=== PATIENT | female | born 1940 | race Caucasian/White ===

== ENCOUNTER 2020-09-12 19:20 | Inpatient (IN) | payer OTHER, SELFPAY ==
--- NOTE | ~2020-09-12 | XR_ITS ---
XR chest 1V portable 09/20/2020 15:22 Indication: Hypertension. Type 2 diabetes. Procedure: AP portable chest Comparison: No prior studies for comparison. Findings: Status post median sternotomy for CABG. Cardiomegaly. Diffuse bilateral airspace disease. N o significant pleural effusion or pneumothorax. Impression: 1: Diffuse bilateral airspace disease, consistent with edema. Pneumonia less favored. Reviewed, dictated and finalized at location B. RHANGER Impression: 1: Diffuse bilateral airspace disease, consistent with edema. Pneumonia less fa vored.
--- NOTE | ~2020-09-12 | US_ITS ---
EXAMINATION: US renal BI DATE: 09/16/2020 09:29 INDICATION: Acute kidney injury. TECHNIQUE: Multiple ultrasound grayscale images of the kidneys were obtained. COMPARISON: None. FINDINGS: The right kidney measures 11.7 x 4.5 x 5.1 cm. The left kidney measures 10.4 x 5.1 x 5.1 cm. The kidn eys demonstrate normal parenchymal echogenicity. There is no hydronephrosis. The bladder is not well distended. IMPRESSION: 1. Normal kidney sizes. No hydronephrosis. Reviewed, dictated and finalized at location A. SERVICE WAITER
--- NOTE | ~2020-09-12 | XR_ITS ---
EXAMINATION: XR foot LT min 3V DATE: 09/12/2020 20:52 INDICATION: Diabetes with foot wound TECHNIQUE: Dorsoplantar, oblique and lateral views of the left foot were obtained. COMPARISON: 12/08/2014 FINDINGS: Transmetatarsal amputations at the necks of the second and third metatarsals. There is also osteotomy of the head and medial neck of the first metatarsal and base of the first proximal phalanx. There ar e smooth and intact cortical margins at each of these osteotomies. Skin ulceration with prominent gas in the soft tissues at the plantar/lateral aspect of the heel. There are several punctate radiopaque foreign bodies at the skin ulceration. No evident underlying cortical erosion to suggest osteomyelit is. No fractures. Minimal polyarticular osteoarthritis in the mid and hindfoot. Small Achilles calcan eal spur. A couple surgical clips at the posterior aspect of the distal calf. IMPRESSION: 1. Deep ulceration with soft tissue gas and several tiny opaque foreign bodies at the plantar/lateral heel fat pad. No underlying cortical erosion to suggest osteomyelitis. Reviewed, dictated and finalized at location H. ROCK [employer]ER BLASTING
--- NOTE | ~2020-09-12 | US_ITS ---
EXAMINATION: US art doppler w press LE BI EXAM DATE: 09/13/2020 10:21 INDICATION: Left DFU/Unable to palpate pedal pulses LT DFU. TECHNIQUE: Segmental pressures and plethysmographic and Doppler waveforms of the brachial and lower e xtremity arteries were obtained. There is no prior study for comparison. FINDINGS: Left brachial artery pressure 119 mmHg. RIGHT LEG: Below knee amputation. Monophasic superficial femoral, popliteal waveforms. LEFT LEG: The ankle-brachial index (NIMO) is 0.85 (normal >= 0.9-1). The great toe-brachial index (TBI) is 0.24 (normal >= 0.65). The lower extremity ratios, segmental pressure gradients as follows; Dorsalis pedis: 0.69 (82 mmHg). Posterior tibial: 0.85 (101 mmHg). (Normal gradients <= 20-30 mmHg between adjacent levels on the same leg or the same levels on the two legs). Arterial waveforms are monophasic. IMPRESSION: Left ankle-brachial index 0.85, mildly decreased. Reviewed, dictated and finalized at location B. [facility]
[2020-09-12 19:26] VITALS: BP 160/61; PULSE 99; RESP 20; TEMP 36.8; O2SAT 99
[2020-09-12 20:23] LABS: Basophils Absolute Auto 0.2 K/mm3 (0.0-0.1); Basophils Percent Auto 0.5 % (0.2-1.2); Eosinophils Percent Auto 0.1 % (0-4.4); Hematocrit 37.4 % (37.0-47.0); Hemoglobin 11.6 g/dL (12.0-15.0); Immature Granulocyte Absolute 1.16 K/mm3 (0.00-0.031); Immature Granulocyte Percent A 3.6 % (0-0.5); Lymphocytes Percent Auto 4.4 % (18.3-44.2); Mean Corpuscular Hemoglobin 27.8 pg (26-34); Mean Corpuscular Volume 89.7 fl (80-100); Mean Platelet Volume 10.8 fl (7.4-10.4); Monocytes Absolute Auto 1.5 K/mm3 (0.1-0.6); Monocytes Percent Auto 4.7 % (2.6-8.5); Neutrophils Absolute Auto 27.7 K/mm3 (1.3-6.7); Neutrophils Percent Auto 86.7 % (45.5-73.1); Platelet Count Result 444 k/mm3 (150-375); Red Blood Count 4.17 M/mm3 (4.2-5.4); Red Cell Distribution Width 14.4 % (11.5-14.5)
--- NOTE | 2020-09-12 20:30 | ED.GENADULT ---
HPI - General Adult General Chief complaint: Extremity Problem,Nontraumatic Stated complaint: foot infection Time Seen by Provider: 09/12/20 19:21 History of Present Illness HPI narrative: Patient is a 80-year-old female who presents ER with pain in her left lower extremity. Patient reports she had an ulcer that developed over her heel/ankle. It then began to spread and her leg became red and began to weep and become malodorous. She was seen at [facility] and then transferred to [facility]. At that time the surgeons there told her they want to perform an [id number] amputation for the leg. Patient disagreed with this and opted to leave against their advice. They did prescribe her 10-day course of Keflex. The bottle shows that it was filled on 07/18/2020. Patient reports she came back in today just because the pain is increased and it shoots from her knee down to her foot. Its worse with movement. She is not having fevers or chills or sweats. She has no nausea or vomiting. She reports her son tries to cleanse the wound at home with saline and will then wrap it. The reason she came here was because she would like Dr. Huerta the orthopedic surgeon who performed her opposite leg amputation to perform this operation. Related Data Home Medications Medication Instructions Recorded Confirmed atorvastatin 10 mg PO DAILY 09/13/20 09/13/20 gabapentin 400 mg PO BID 09/13/20 09/13/20 insulin glargine [Lantus U-100 35 unit SUBCUT BID 09/13/20 09/13/20 Insulin] Allergies Allergy/AdvReac Type Severity Reaction Status Date / Time No Known Allergies Allergy Verified 09/13/20 01:03 Review of Systems Review of Systems: All systems reviewed & are unremarkable except as noted in HPI and below Constitutional: Constitutional: Denies chills, Denies fever(s) and Denies weakness Musculoskeletal: Musculoskeletal: Denies back pain and Denies arthralgias Comments: Left lower extremity pain. Integumentary/Breasts: Skin/Breast: Reports skin ulcer Comments: Redness left lower extremity. [facility] Past Medical History Medical History (Updated 09/12/20 @ 22:41 by Dominik Freedman MD) Diabetes type 2, controlled Neuropathy Wound of foot Surgical History Surgical History (Updated 09/12/20 @ 20:32 by Dominik Freedman MD) History of right below knee amputation Family History Family History (Updated 10/12/13 @ 09:41 by DOCTOR UNKNOWN) Other Diabetes mellitus Family history of arthritis Family history of cardiovascular disease Hypertension Social History Social History Smoking status: Former smoker Alcohol intake: current Exam Narrative: Exam Narrative: GENERAL: Well-appearing, well-nourished, and in no acute distress. HEAD: Normocephalic, atraumatic. ENT: Mucous membranes moist. CHEST: Clear to auscultation. No respiratory distress. HEART: Regular rate and rhythm. Normal peripheral pulses. EXTREMITIES: Right BKA. Left lower extremity with significant skin breakdown of the left heel extending proximally. There is also some small pinpoint wounds to the foot. There is no tenderness. It is pink and malodorous and draining fluid. There is a small dark eschar over the heel laterally but over the plantar aspect there is a lot of dog hair. There is a yellowed ulcer to the lateral left aguila that is at least 7 cm wide. SKIN: Warm, dry, as above. NEURO: Alert and oriented x3. PSYCH: Normal mood and affect. Course Course Emergency Course: Discussed the case with Dr. Patten as he is on-call for Dr. Huerta who the patient had a previous amputation with back in 2016. We discussed the images and lab findings as well as the exam. Discussed that there is significant deep ulceration embedded with hair. Patient does not seem to have significant reproducible tenderness moving up the leg. There is no gas tracking vertically up the leg on the imaging. Seems to be localized to her deep plantar ulceration of th
[2020-09-12 20:34] LABS: Lactic Acid Reflex 1.4 mmol/L (0.7-2.1)
[2020-09-12 20:40] LABS: Anion Gap 7 mmol/L (8-16); Blood Urea Nitrogen 17 mg/dL (7-17); Calcium 9.3 mg/dL (8.4-10.2); Carbon Dioxide 33 mmol/L (22-30); Chloride 97 mmol/L (98-107); Estimated CRCL calculation 55 ml/min; Estimated Glomerular Filt Rate > 60; Glucose 415 mg/dL (65-105); Potassium 3.9 mmol/L (3.4-5.0); Sodium 137 mmol/L (137-145)
[2020-09-12 20:48] LABS: Erythrocyte Sedimentation Rate 87 mm/hr (0-20)
[2020-09-13] VITALS (8 sets, daily range): BP systolic 114–158; BP diastolic 55–87; PULSE 94–103; RESP 16–20; TEMP 35.9–37.1; O2SAT 91–95; BMI 41.1
[2020-09-13] MEDS: SODIUM CHLORIDE 0.9% IV 1,000 ML 125 ML IV CONT ×3 (00:02→16:43)
--- NOTE | 2020-09-13 02:21 | ADMGEN ---
This patient, Owen Escobar, was admitted to 2 Medical Room 246-. Patient/family oriented to hospital policies and general routines including ID bracelet, bed and alarms, visiting hours, pain management, procedures, bathroom and other care routines, personal items, smoking policy, room service/diet, and visiting hours. Information on how to activate the Rapid Response Team has been discussed. Patient/Family are encouraged to report perceived risks to care and to ask questions if they do not understand what they are told or what they should do.
[2020-09-13 04:16] LABS: Glucose Point of Care 310 (65-105)
[2020-09-13 07:28] LABS: Glucose Point of Care 293 (65-105)
--- NOTE | 2020-09-13 08:00 | PC.NURSE ---
Called Dr. Dunne and left voice message regarding elevated blood glucose and need for insulin orders.
[2020-09-13] MEDS: HYDROcodone/acetaminophen (*CRX) 5-325 MG TABLET 1 TAB PO ×2 (08:20→16:37)
--- NOTE | 2020-09-13 09:03 | PM.CNOR ---
Assessment and Plan Assessment and plan (1) Diabetic foot ulcer: Qualifiers: Diabetic foot ulcer location: heel Diabetes mellitus type: type 2 Laterality: left Non-pressure ulcer stage: with necrosis of muscle Qualified Code(s): E11.621 - Type 2 diabetes mellitus with foot ulcer; L97.423 - Non-pressure chronic ulcer of left heel and midfoot with necrosis of muscle Code(s): E11.621 - Type 2 diabetes mellitus with foot ulcer; L97.509 - Non-pressure chronic ulcer of other part of unspecified foot with unspecified severity Status: Acute Assessment and Plan: Radiographs of the left foot reveal a deep ulceration with soft tissue gas and several tiny opaque foreign bodies at the plantar/lateral heel fat pad. No underlying cortical erosion to suggest osteomyelitis. Radiographs also reveal transmetatarsal amputations at the necks of the second and third metatarsals and an osteotomy of the head and medial neck of the first metatarsal and base of the first proximal phalanx. Patient unsure of who performed these surgeries but recalls it occurred prior to her right BKA. On exam, patient has a left medial ankle ulceration which is dry measuring 1.5 x 2.0 x 0.0 cm. She has a large necrotic ulcer on the left plantar heel which extends to the midfoot and measures 11.0 cm x 14.0 cm x 0.0 cm. Is 100% necrotic. There is also an ulceration on the left planter aspect of the hallux measuring 1 x 2 x 0.0 cm with a dry callus covering. surrounding tissue with redness, warmth and swelling. Redness extends more proximally below the tibial tubercle. Venous stasis ulcerations also noted. Unable to palpate pedal pulses. Patient is mainly insensate from the forefoot to the distal tibia. Will obtain a left lower extremity arterial Doppler with toe pressures at this time. Dressing to be removed for the arterial Doppler of the left lower extremity. Order entered. Wound care initiated, to be performed daily. Continue IV antibiotics under the direction of the hospitalist team. We will also obtain hemoglobin A1c. Patient to be nonweightbearing on the left lower extremity in the interim. We will determine further surgical intervention pending testing. (2) Infected stasis ulcer of left lower extremity: Code(s): I83.229 - Varicose veins of left lower extremity with both ulcer of unspecified site and inflammation; L97.929 - Non-pressure chronic ulcer of unspecified part of left lower leg with unspecified severity Status: Acute Assessment and Plan: There is a 6.5 x 4.5 x 0.2 Penilla in a stasis ulcer on the lateral aspect of the left anterior leg. It is 100% yellow. She does have 4+ pitting edema in the left lower extremity. She has an additional venous stasis ulcer on the posterior aspect of the left lower leg which measures 7.0 x 5.5 x 0.2 cm and is 100% yellow. Wound care consult requested. Wound care nurse at bedside during evaluation. Will begin dry dressings at this time. (3) Absent pedal pulses: Code(s): R09.89 - Other specified symptoms and signs involving the circulatory and respiratory systems Status: Acute Assessment and Plan: Unable to palpate pedal pulses in the left lower extremity. The patient is insensate from the toes to the anterior tibia. Recommended lower extremity arterial Doppler for further evaluation and potential surgical planning. (4) Lower extremity cellulitis: Qualifiers: Laterality: left Qualified Code(s): L03.116 - Cellulitis of left lower limb Code(s): L03.119 - Cellulitis of unspecified part of limb Status: Acute Assessment and Plan: Patient with an elevated white blood cell count and CRP. Redness, warmth and swelling distal to the tibial tubercle down to the forefoot of the left lower extremity. The patient has been started on IV antibiotics by the hospitalist service. Continue antibiotics in the interim. (5) Uncontrolled diabetes mellitus:
[2020-09-13 10:09] LABS: Hemoglobin A1C 10.2 % (<5.7)
--- NOTE | 2020-09-13 12:00 | PC.NURSE ---
Called Dr. Dunne and left voice message regarding continued need for glucose orders. 1215 - Dr. Dunne on unit. Discussed elevated blood glucose with her. Orders received.
[2020-09-13 12:09] LABS: Glucose Point of Care 350 (65-105)
--- NOTE | 2020-09-13 12:35 | PM.IMHP ---
H&P: HPI History of Present Illness Date/Time: 09/13/20 12:35 Chief complaint: diabetic foot wound with infection Narrative: Owen Escobar is a 80 year old female pt developed ulcer on her left foot. Pt had blister on her foot, which got worse over Jun and July. Pt was having alot of pain, unbearable pain and decided to come here for evaluation. Pt did go to [facility] and was transferred to [facility] where they said she needs amputation above knee but patient did not have it done then. Pt has history of DM and right below knee amputation. And has seen Dr Huerta before in 2014. Presently her pain is 6/10. Pt lives with her son unsure how good her DM control is at home, I believe it is not good. I will order Hbaic to check. foot xray shows - Deep ulceration with soft tissue gas and several tiny opaque foreign bodies at the plantar/lateral heel fat pad. No underlying cortical erosion to suggest osteomyelitis. 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 She does not work. She denies smoking, alcohol or drug use. Smoking packs per day: 0.5 Smoking cigarettes per day: 10.0 Years smoked: 63 Smoking pack-years: 31.50 Smoking status: Former smoker Tobacco type: cigarettes Smoking end date: 08/21/15 Alcohol intake: never Substance use: never Substance use type: does not use Living arrangements: with family Additional living arrangements comments: Two sons Occupation/Education: retired Gender identity (if verbalized by the patient): Female Meds Home Medications and Allergies Home Medications Medication Instructions Recorded Confirmed Type atorvastatin [Lipitor] 40 mg PO DAILY 09/13/20 09/13/20 History carvedilol [Coreg] 12.5 mg PO BID 09/13/20 09/13/20 History gabapentin 400 mg PO BID 09/13/20 09/13/20 History insulin glargine [Lantus U-100 42 unit SUBCUT BID 09/13/20 09/13/20 History Insulin] lisinopril [Zestril] 2.5 mg PO DAILY 09/13/20 09/13/20 History mirtazapine [Remeron] 15 mg PO HS 09/13/20 09/13/20 History Allergies Allergy/AdvReac Type Severity Reaction Status Date / Time No Known Allergies Allergy Verified 09/13/20 01:03 Vital Signs Vital Signs - 24 hr 09/12/20 19:26 09/13/20 00:06 09/13/20 01:02 Temperature 36.8 C Pulse Rate 99 94 94 Respiratory Rate 20 18 20 Blood Pressure 160/61 H 158/62 H 156/62 H Pulse Oximetry 99 95 95 09/13/20 02:39 09/13/20 05:42 09/13/20 10:00 Temperature 35.9 C L 36.1 C L 36.9 C Pulse Rate 96 94 100 Respiratory Rate 16 16 18 Blood Pressure 148/64 H 142/55 H 136/61 Pulse Oximetry 93 91 94 Exam Const: General: well developed Nutritional Appearance: well nourished HENMT: Head: normocephalic Eyes: General: appearance normal, both eyes and all related structures Pupils: Equal, round and reactive pupils present Neck: Neck: supple Chest: Chest palpation & inspection:
[2020-09-13] MEDS: INSULIN ASPART (*BKC) 100 UNITS/ML 6 UNITS SUB-Q (12:40)
[2020-09-13 13:40] LABS: Hemoglobin A1C 10.3 % (<5.7)
[2020-09-13] MEDS: TOLNAFTATE 1% POWDER 45 GM BTL 1 APPLIC TOPICAL ×2 (14:43→20:20)
[2020-09-13] MEDS: INSULIN ASPART (*BKC) 100 UNITS/ML SUB-Q (16:58)
--- NOTE | 2020-09-13 17:00 | PC.NURSE ---
Called Dr. Dunne and left voice message regarding blood glucose of 413. 8 units of sliding scale given. Awaiting any further orders.
[2020-09-13] MEDS: GABAPENTIN 400 MG CAPSULE PO (18:21)
[2020-09-13 18:35] LABS: Glucose Point of Care 413 (65-105)
--- NOTE | 2020-09-13 19:26 | WPDANESEPP ---
Anes - Eval Pre Procedure Procedure: Operation Date: 09/14/20 14:30 Proposed Procedures p Incision And Drainage Left Diabetic Foot Ulcer - Alexy Huerta MD Date/Time: 09/13/20 19:26 Pre Op Diagnosis: diabetic foot wound with infection Patient Data Age: 80 Gender: F Height: 5 ft 1 in Weight: 98.7 kg Last Vital Signs Temp 98.8 F 09/13/20 18:00 Pulse 103 H 09/13/20 18:00 Resp 16 09/13/20 18:00 BP 130/71 09/13/20 18:00 Pulse Ox 93 09/13/20 18:00 Allergies Allergy/AdvReac Type Severity Reaction Status Date / Time No Known Allergies Allergy Verified 09/13/20 01:03 Home Medications Medication Instructions Recorded Confirmed Type atorvastatin [Lipitor] 40 mg PO DAILY 09/13/20 09/13/20 History carvedilol [Coreg] 12.5 mg PO BID 09/13/20 09/13/20 History gabapentin 400 mg PO BID 09/13/20 09/13/20 History insulin glargine [Lantus U-100 42 unit SUBCUT BID 09/13/20 09/13/20 History Insulin] lisinopril [Zestril] 2.5 mg PO DAILY 09/13/20 09/13/20 History mirtazapine [Remeron] 15 mg PO HS 09/13/20 09/13/20 History Laboratory Tests 09/12/20 09/12/20 09/12/20 20:01 20:01 20:01 WBC 32.0 K/mm3 H K/mm3 (4.5-10.0) RBC 4.17 M/mm3 L M/mm3 (4.2-5.4) Hgb 11.6 g/dL L g/dL (12.0-15.0) Hct 37.4 % % (37.0-47.0) MCV 89.7 fl fl (80-100) MCH 27.8 pg pg (26-34) MCHC 31.0 g/dl L g/dl (32-36) RDW 14.4 % % (11.5-14.5) Plt Count 444 k/mm3 H k/mm3 (150-375) MPV 10.8 fl H fl (7.4-10.4) Immature Gran % (Auto) 3.6 % H % (0-0.5) Neut % (Auto) 86.7 % H % (45.5-73.1) Lymph % (Auto) 4.4 % L % (18.3-44.2) Snyder % (Auto) 4.7 % % (2.6-8.5) Eos % (Auto) 0.1 % % (0-4.4) Baso % (Auto) 0.5 % % (0.2-1.2) Lymph # (Auto) 1.40 K/mm3 K/mm3 (0.9-3.2) Snyder # (Auto) 1.5 K/mm3 H K/mm3 (0.1-0.6) Eos # (Auto) 0.0 K/mm3 K/mm3 (0-0.3) Baso # (Auto) 0.2 K/mm3 H K/mm3 (0.0-0.1) Abs Immat Gran (auto) 1.16 K/mm3 H K/mm3 (0.00-0.031) Absolute Neuts (auto) 27.7 K/mm3 H K/mm3 (1.3-6.7) Absolute Nucleated RBC 0.0 K/mm3 K/mm3 (0.0-0.012) Nucleated RBC % 0.0 % % (0.0-0.2) ESR 87 mm/hr H mm/hr (0-20) Sodium 137 mmol/L mmol/L (137-145) Potassium 3.9 mmol/L mmol/L (3.4-5.0) Chloride 97 mmol/L L mmol/L (98-107) Carbon Dioxide 33 mmol/L H mmol/L (22-30) Anion Gap 7 mmol/L L mmol/L (8-16) BUN 17 mg/dL mg/dL (7-17) Creatinine 0.80 mg/dL mg/dL (0.7-1.0) Estim Creat Clear Calc 55 ml/min ml/min Estimated GFR > 60 (59 - ) Glucose 415 mg/dL H mg/dL (65-105) POC Capillary Glucose Hemoglobin A1c Lactic Acid 1.4 mmol/L mmol/L (0.7-2.1) Calcium 9.3 mg/dL mg/dL (8.4-10.2) C-Reactive Protein 29.0 mg/dL H mg/dL (<1.0) 09/13/20 09/13/20 09/13/20 03:16 07:25 09:24 WBC RBC Hgb Hct MCV MCH MCHC RDW Plt Count MPV Immature Gran % (Auto) Neut % (Auto) Lymph % (Auto) Snyder % (Auto) Eos % (Auto) Baso % (Auto) Lymph # (Auto) Snyder # (Auto) Eos # (Auto) Baso # (Auto) Abs Immat Gran (auto) Absolute Neuts (auto) Absolute Nucleated RBC Nucleated RBC % ESR Sodium Potassium Chloride Carbon Dioxide Anion Gap BUN Creatinine Estim Creat Clear Calc Estimated GFR Glucose POC Capillary
[2020-09-13] MEDS: MIRTAZAPINE 15 MG TABLET PO (20:19)
[2020-09-13] MEDS: carvediloL 12.5 MG TABLET PO (20:19)
[2020-09-13] MEDS: INSULIN GLARGINE (*BKC) 100 UNITS/ML 42 UNITS SUB-Q (20:19)
[2020-09-13 22:13] LABS: Glucose Point of Care 404 (65-105)
[2020-09-13] MEDS: INSULIN ASPART (*BKC) 100 UNITS/ML 10 UNITS SUB-Q (22:57)
[2020-09-14] VITALS (15 sets, daily range): BP systolic 91–136; BP diastolic 38–62; PULSE 65–87; RESP 15–22; TEMP 35.8–36.9; O2SAT 93–100; BMI 41.1
[2020-09-14 01:03] LABS: Glucose Point of Care 442 (65-105)
[2020-09-14] MEDS: SODIUM CHLORIDE 0.9% IV 1,000 ML 125 ML IV CONT ×3 (02:37→23:18)
[2020-09-14 05:39] LABS: Hemoglobin 9.4 g/dL (12.0-15.0); Mean Corpuscular HGB Conc 30.3 g/dl (32-36); Mean Corpuscular Hemoglobin 27.6 pg (26-34); Mean Corpuscular Volume 91.2 fl (80-100); Platelet Count Result 363 k/mm3 (150-375); Red Cell Distribution Width 14.6 % (11.5-14.5); White Blood Count 23.2 K/mm3 (4.5-10.0)
[2020-09-14 05:56] LABS: Anion Gap 6 mmol/L (8-16); Blood Urea Nitrogen 20 mg/dL (7-17); Calcium 7.5 mg/dL (8.4-10.2); Carbon Dioxide 27 mmol/L (22-30); Chloride 103 mmol/L (98-107); Estimated CRCL calculation 49 ml/min; Estimated Glomerular Filt Rate > 60; Glucose 348 mg/dL (65-105); Sodium 136 mmol/L (137-145)
--- NOTE | 2020-09-14 08:19 | WPDHPUPDATE1 ---
History and Physical Update Update Date/Time: 09/14/20 08:19 History and Physical has been reviewed, including an updated exam of the patient. There are NO changes in the patient's condition. Risks, benefits, and alternatives have been discussed and questions answered. Patient agrees to proceed with procedure.
--- NOTE | 2020-09-14 08:50 | PCDIET ---
MD consult received. Patient currently NPO for debridement of left foot wound. Will offer education when appropriate.
[2020-09-14 09:14] LABS: Glucose Point of Care 336 (65-105)
[2020-09-14] MEDS: INSULIN GLARGINE (*BKC) 100 UNITS/ML 42 UNITS SUB-Q (09:50)
[2020-09-14] MEDS: INSULIN ASPART (*BKC) 100 UNITS/ML SUB-Q ×2 (09:51→12:09)
[2020-09-14] MEDS: ATORVASTATIN 40 MG TABLET PO (09:56)
[2020-09-14] MEDS: GABAPENTIN 400 MG CAPSULE PO ×2 (09:56→17:54)
[2020-09-14] MEDS: carvediloL 12.5 MG TABLET PO ×2 (09:56→20:25)
[2020-09-14] MEDS: lisinopriL 2.5 MG TABLET PO (09:56)
[2020-09-14] MEDS: TOLNAFTATE 1% POWDER 45 GM BTL 1 APPLIC TOPICAL ×2 (09:56→20:26)
--- NOTE | 2020-09-14 10:50 | PM.IMPN ---
Progress Note: A&P Assessment and Plan (1) Uncontrolled diabetes mellitus: Qualifiers: Diabetes mellitus type: type 2 Glycemic state: with hyperglycemia Qualified Code(s): E11.65 - Type 2 diabetes mellitus with hyperglycemia Code(s): E11.65 - Type 2 diabetes mellitus with hyperglycemia Status: Acute Assessment and Plan: ACCUCHECKS< SSI< DM EDUCATOR< DM DIET< HBaic is 10, i will increase her dose of lantus fo tomorrow. Long discussion on better DM control at home (2) Diabetic foot ulcer: Qualifiers: Diabetic foot ulcer location: heel Diabetes mellitus type: type 2 Laterality: left Non-pressure ulcer stage: with necrosis of muscle Qualified Code(s): E11.621 - Type 2 diabetes mellitus with foot ulcer; 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 (3) Infected stasis ulcer of left lower extremity: Code(s): I83.229 - Varicose veins of left lower extremity with both ulcer of unspecified site and inflammation; L97.929 - Non-pressure chronic ulcer of unspecified part of left lower leg with unspecified severity Status: Acute Assessment and Plan: Bc are positive for group b strep, continue IV PRIMAXIN, continue to monitor WCC (4) Absent pedal pulses: Code(s): R09.89 - Other specified symptoms and signs involving the circulatory and respiratory systems Status: Acute Assessment and Plan: PT HAD VENOUS DOPPLER ORDERED NIMO SHOWS 0.85 Subjective Date/time seen: 09/14/20 10:50 Interval history: Owen Escobar is a 80 year old female pt developed ulcer on her left foot. Pt sugars have been running high ? poor control at home ? sepsis. Pt is going for debridement today under Dr Huerta. No other complaints, pt sugars are high otherwise is clear for surgery. Review of Systems Review of Systems: All systems reviewed & are unremarkable except as noted in HPI and below Exam Const: General: well developed Nutritional Appearance: well nourished HENMT: Head: normocephalic Eyes: General: appearance normal, both eyes and all related structures Pupils: Equal, round and reactive pupils present Neck: Neck: supple Chest: Chest palpation & inspection: normal inspection of the chest Resp: Effort & Inspection: normal respiratory effort Auscultation: clear to auscultation bilaterally Cardio: Jugular venous distension: no JVD Rhythm: regular rhythm Heart sounds: S1 normal heart sound present and S2 normal heart sound present GI: Inspection: normal to inspection Auscultation: normal bowel sounds Skin: General skin exam: normal color and dry skin Neuro: Cranial nerves: Yes CN's II-XII intact bilaterally and Yes Equal, round and reactive pupils present Cognition (Neuro): normal cognition Speech: normal speech Extrem: General: other (left heel with dressing ) Psych: Appearance: grossly normal Mental Status: mental status grossly normal Objective Data Vital Signs Vital Signs: Vital Signs - 24 hr 09/13/20 14:00 09/13/20 18:00 09/13/20 20:19 Temperature 36.4 C L 37.1 C Pulse Rate 96 103 H 103 H Respiratory Rate 16 16 Blood Pressure 114/87 130/71 Pulse Oximetry 93 93 09/14/20 00:00 09/14/20 04:00 09/14/20 10:00 Temperature 36.4 C L 36.8 C 36.4 C L Pulse Rate 87 86 76 Respiratory Rate 20 20 18 Blood Pressure 136/62 114/48 L 121/43 L Pulse Oximetry 95 98 96 Intake/Output Intake/Output: Intake & Output 09/11/20 09/12/20 09/13/20 09/14/20 23:59 23:59 23:59 23:59 Intake Total 2970 1320 Output Total 350 200 Balance 2620 1120 Meds/Results Medications: Active Medications Generic Name Dose Route Start Last Admin
[2020-09-14] MEDS: HYDROcodone/acetaminophen (*CRX) 5-325 MG TABLET 1 TAB PO ×3 (12:05→20:30)
[2020-09-14 12:11] LABS: Glucose Point of Care 254 (65-105)
--- NOTE | 2020-09-14 14:29 | WPDANESEFPP ---
Anes - Eval Final PreProcedure Day of Procedure 09/14/20 14:29 Patient weight: morbidly obese Heart: regular rate and rhythm Lungs: clear to auscultation and normal air movement Airway: Mallampati scale class III Neurological: alert and oriented Last oral intake: >/= 8 hours ASA classification: IV Emergent: no Anesthetic plan: proceed Anesthesia type and monitoring: general LMA and standard monitoring Informed Consent: The patient's anesthetic plan and its attendant risks and benefits were discussed with the patient/family/POA. Questions were solicited and answers provided to the satisfaction of the patient/family/POA.
[2020-09-14] MEDS: LACTATED RINGERS 1,000 ML 30 ML IV CONT (14:37)
--- NOTE | 2020-09-14 15:57 | PM.PROC ---
Procedure Note - Detailed Date of procedure: 09/14/20 Pre-op diagnosis: diabetic foot wound with infection Post-op diagnosis: same Procedure performed: excisional debridement left diabetic foot ulcer including bone Description of procedure: Indications: Patient is a 80-year-old woman with severely involved left diabetic foot ulcer as well as left leg venous stasis ulcers. Patient has diabetes, neuropathy and peripheral arterial disease. She has a severely elevated white count and inflammatory markers. Consistent with sepsis. Presents for operative treatment. What was done: Patient identified in the preoperative holding. Informed consent given. Operative extremity marked. Patient received intravenous antibiotics. Patient brought to the operating room where underwent general anesthetic by anesthesia team. Positioned supine on operating room table. Time-out performed confirming the patient, site of the surgery and the plan. Left leg prepped draped usual sterile surgical fashion using a Betadine prep solution. No tourniquet was utilized. Fifteen blade knife was used to excise the necrotic tissue overlying the posterior and plantar aspect of the calcaneus and hindfoot. Most of the plantar skin from the calcaneocuboid joint proximally to the posterior calcaneus was completely removed. The soft tissue was down to bone on the plantar calcaneus and the posterior aspect. Rongeur was used to remove large devitalized or infected portions of tissue as well as to debride the bone at the posterior calcaneus. Very little bleeding around the surrounding tissue was encountered. Post debridement the wound measured 10 cm medial to lateral and 9.5 cm anterior to posterior. Wound was then thoroughly irrigated with antibiotic solution. Betadine soaked gauze applied to the diabetic foot ulcer. Xeroform applied to the venous stasis ulcers. Sterile dressing applied. The patient was then woken from anesthesia, extubated and taken to the recovery room in stable condition. All sponge, needle, instrument counts were correct at the end of the case. 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
[2020-09-14 16:03] LABS: Glucose Point of Care 126 (65-105)
[2020-09-14] MEDS: DOCUSATE SODIUM 100 MG CAPSULE PO (17:54)
[2020-09-14 18:01] LABS: Glucose Point of Care 170 (65-105)
[2020-09-14] MEDS: MIRTAZAPINE 15 MG TABLET PO (20:25)
[2020-09-14 20:53] LABS: Glucose Point of Care 202 (65-105)
[2020-09-15] VITALS (15 sets, daily range): BP systolic 98–114; BP diastolic 46–50; PULSE 68–80; RESP 16–20; TEMP 36.2–38.8; O2SAT 93–100
[2020-09-15] MEDS: HYDROcodone/acetaminophen (*CRX) 5-325 MG TABLET 1 TAB PO ×2 (04:24→10:03)
[2020-09-15 07:49] LABS: Glucose Point of Care 219 (65-105)
[2020-09-15] MEDS: INSULIN ASPART (*BKC) 100 UNITS/ML SUB-Q ×2 (07:58→17:23)
[2020-09-15] MEDS: SODIUM CHLORIDE 0.9% IV 1,000 ML 125 ML IV CONT (08:01)
[2020-09-15] MEDS: carvediloL 12.5 MG TABLET PO ×2 (08:03→20:38)
[2020-09-15] MEDS: DOCUSATE SODIUM 100 MG CAPSULE PO ×2 (08:03→17:21)
[2020-09-15] MEDS: ATORVASTATIN 40 MG TABLET PO (08:03)
[2020-09-15] MEDS: lisinopriL 2.5 MG TABLET PO (08:03)
[2020-09-15] MEDS: GABAPENTIN 400 MG CAPSULE PO ×2 (08:03→17:21)
[2020-09-15] MEDS: ENOXAPARIN 40 MG/0.4 ML SYRINGE SUB-Q (08:04)
[2020-09-15] MEDS: TOLNAFTATE 1% POWDER 45 GM BTL 1 APPLIC TOPICAL ×2 (08:04→20:38)
--- NOTE | 2020-09-15 10:14 | PM.IMPN ---
Progress Note: A&P Assessment and Plan (1) Uncontrolled diabetes mellitus: Qualifiers: Diabetes mellitus type: type 2 Glycemic state: with hyperglycemia Qualified Code(s): E11.65 - Type 2 diabetes mellitus with hyperglycemia Code(s): E11.65 - Type 2 diabetes mellitus with hyperglycemia Status: Acute Assessment and Plan: ACCUCHECKS< SSI< DM EDUCATOR< DM DIET< HBaic is 10, i will increase her dose of lantus fo tomorrow. Long discussion on better DM control at home 09/15/20 10:14 Patient is 80-year-old female with history of uncontrolled diabetes with a hemoglobin A1c of 10 presented emergency department with a complaint pain swelling and redness to her left lower extremity, patient was seen by an orthopedic surgeon on 09/14 and was taken to OR and had excisional debridement left diabetic foot ulcer including bone, wound culture is growing group B Streptococcus patient is being treated with imipenem and vancomycin will follow-up sensitivity, wound culture is pending, today patient states feeling better the pain is controlled, denies any fever or chills, currently patient is sitting in the chair, left lower extremity in the wound dressing, patient seen by her surgeon today and doing well postop. 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 (3) Infected stasis ulcer of left lower extremity: Code(s): I83.229 - Varicose veins of left lower extremity with both ulcer of unspecified site and inflammation; L97.929 - Non-pressure chronic ulcer of unspecified part of left lower leg with unspecified severity Status: Acute Assessment and Plan: Bc are positive for group b strep, continue IV PRIMAXIN, continue to monitor WCC (4) Absent pedal pulses: Code(s): R09.89 - Other specified symptoms and signs involving the circulatory and respiratory systems Status: Acute Assessment and Plan: PT HAD VENOUS DOPPLER ORDERED NIMO SHOWS 0.85 Subjective Date/time seen: 09/15/20 10:14 Patient is 80-year-old female with history of uncontrolled diabetes with a hemoglobin A1c of 10 presented emergency department with a complaint pain swelling and redness to her left lower extremity, patient was seen by an orthopedic surgeon on 09/14 and was taken to OR and had excisional debridement left diabetic foot ulcer including bone, wound culture is growing group B Streptococcus patient is being treated with imipenem and vancomycin will follow-up sensitivity, wound culture is pending, today patient states feeling better the pain is controlled, denies any fever or chills, currently patient is sitting in the chair, left lower extremity in the wound dressing, patient seen by her surgeon today and doing well postop. Will continue present management will have PT OT evaluate the patient and further recommendation to follow Review of Systems Review of Systems: All systems reviewed & are unremarkable except as noted in HPI and below Exam Narrative: Exam Narrative: Elderly frail moderately obese Patient is comfortable, NAD HEENT: eyes are clear and none icteric LUNGS:CTA HEART: RR S1S2 ABD: BS+, Soft and nontender Lower extremities: no edema MS: Left lower extremity in wound dressing SKIN: nonjaundiced Neuro: grossly intact. Objective Data Perla
[2020-09-15 11:34] LABS: Glucose Point of Care 195 (65-105)
--- NOTE | 2020-09-15 12:10 | PM.PNORT ---
Progress Note: A&P Additional Plan POD 1 DOING WELL. CONTINUE DRESSING CHANGE PER POSTOP ORDER. Subjective Subjective Date/Time Seen: 09/15/20 12:10 POD 1 DOING WELL. NO CALF PAIN Exam Extrem: Other: VSS AFEBRILE DRESSING WITH MILD DRAINAGE, CALF SOFT NON TENDER Objective Data Vital Signs Vital Signs: Vital Signs - 24 hr 09/14/20 14:00 09/14/20 14:46 09/14/20 15:42 Temperature 36.1 C L 36.2 C L 36.9 C Pulse Rate 72 72 67 Respiratory Rate 16 20 15 Blood Pressure 118/52 L 107/49 L 91/44 L Pulse Oximetry 93 98 99 09/14/20 16:06 09/14/20 16:21 09/14/20 16:25 Temperature 35.8 C L Pulse Rate 69 70 67 Respiratory Rate 16 18 16 Blood Pressure 93/45 L 96/45 L 92/38 L Pulse Oximetry 100 95 97 09/14/20 16:40 09/14/20 17:10 09/14/20 18:10 Temperature 35.9 C L 36.3 C L 36.0 C L Pulse Rate 72 69 65 Respiratory Rate 16 18 18 Blood Pressure 102/41 L 100/48 L 93/48 L Pulse Oximetry 99 95 100 09/14/20 20:00 09/14/20 20:25 09/14/20 22:10 Temperature 36.1 C L Pulse Rate 72 66 Respiratory Rate 22 H Blood Pressure 108/42 L Pulse Oximetry 97 97 09/15/20 02:10 09/15/20 05:59 09/15/20 08:00 Temperature 36.2 C L 36.4 C Pulse Rate 75 68 Respiratory Rate 20 16 Blood Pressure 114/48 L 103/46 L Pulse Oximetry 99 97 93 09/15/20 08:03 09/15/20 10:10 Temperature 36.3 C L Pulse Rate 68 70 Respiratory Rate 17 Blood Pressure 104/49 L Pulse Oximetry 100 Intake/Output Intake/Output: Intake & Output 09/12/20 09/13/20 09/14/20 09/15/20 23:59 23:59 23:59 23:59 Intake Total 2970 4550 1580 Output Total 350 600 400 Balance 2620 3950 1180 Meds/Results Medications: Active Medications Generic Name Dose Route Start Last Admin Trade Name Freq PRN Reason Stop Dose Admin Acetaminophen 650 mg 09/12/20 22:41 Acetaminophen 325 Mg Tablet PO Q4H PRN Mild Pain (1-3) or Fever Hydrocodone Bitart/Acetaminophen 1 tab 09/12/20 22:41 09/15/20 10:03 Hydrocodone/Acetaminophen (*Crx) 5-325 Mg Tablet PO 1 tab Q4H PRN Administration Pain Rated 4-6 Hydrocodone Bitart/Acetaminophen 1 tab 09/13/20 12:57 Hydrocodone/Acetaminophen (*Crx) 5-325 Mg Tablet PO Q6H PRN Pain Rated 4-6 Atorvastatin Calcium 40 mg 09/14/20 09:00 09/15/20 08:03 Atorvastatin 40 Mg Tablet PO 40 mg DAILY NEW Administration Carvedilol 12.5 mg 09/13/20 21:00 09/15/20 08:03 Carvedilol 12.5 Mg Tablet PO 12.5 mg Q12HR NEW Administration Dextrose 12.5 gm 09/13/20 12:53 Dextrose 50% 25 Gm/50 Ml Syringe IV PUSH PRN PRN Hypoglycemia Protocol Docusate Sodium 100 mg 09/14/20 17:00 09/15/20 08:03 Docusate Sodium 100 Mg Capsule PO 100 mg BID NEW Administration Enoxaparin Sodium 40 mg 09/14/20 09:00 09/15/20 08:04 Enoxaparin 40 Mg/0.4 Ml Syringe SUB-Q 40 mg DAILY NEW Administration Fentanyl Citrate 25 mcg 09/14/20 14:25 Fentanyl Citrate Inj (*Crx) 100 Mcg/2 Ml Vial IV PUSH Q2M PRN Pain Gabapentin 400 mg 09/13/20 17:00 09/15/20 08:03 Gabapentin 400 Mg Capsule PO 400 mg BID NEW Administration Glucagon 1 mg 09/13/20 12:53 Glucagon For Inj 1 Mg Vial IM PRN PRN Hypoglycemia Protocol Glucose 15 gm 09/13/20 12:53 Glucose Oral Gel 15 Gm Of Glucse In 37.5 Gm Tube PO PRN PRN Hypoglycemia Protocol Imipenem/Cilastatin Sodium 500 mg in 100 mls @ 300 mls/hr 09/13/20 06:00 09/15/20 11:48 Primaxin 500 Mg/D5w 100 Ml IVPB 300 mls/hr Q6HR NEW Administration Dextrose 1,000 mls @ 100 mls/hr 09/13/20 12:53 Dextrose 5% 1,000 Ml IVPB PRN PRN Hypoglycemia Protocol Insulin Aspart 4 - 8 units 09/13/20 17:00 09/15/20 11:34 Insulin Aspart (*Bkc) 100 Units/Ml SUB-Q Not Given TIDWM [facility] Protocol Lisinopril 2.5 mg 09/14/20 09:00 09/15/20 08:03 Lisinopril 2.5 Mg Tablet PO 2.5 mg DAILY NEW Administration Magnesium Hydroxide 30 ml
--- NOTE | 2020-09-15 12:56 | WPDANESPN ---
Anes - Prog Note Post-Op Date/Time: 09/15/20 12:56 Cardiovascular status: normal Respiratory status: normal Airway patency: baseline Mental status: baseline Post-Op hydration status: normal Vital Signs: Last Vital Signs Temp 36.3 C L 09/15/20 10:10 Pulse 70 09/15/20 10:10 Resp 17 09/15/20 10:10 BP 104/49 L 09/15/20 10:10 Pulse Ox 100 09/15/20 10:10 Pain Score (VAS): 10/30 I/O: Intake & Output 09/14/20 09/15/20 09/15/20 23:59 07:59 15:59 Intake Total 1830 1340 240 Output Total 400 400 Balance 1430 940 240 Laboratory Tests 09/14/20 05:08 09/14/20 05:08 09/14/20 09/14/20 09/14/20 16:01 17:25 20:24 POC Capillary Glucose 126 H 170 H 202 H SARS-CoV-2 RNA (RT-PCR) 09/15/20 09/15/20 09/15/20 06:14 07:43 11:27 POC Capillary Glucose 219 H 195 H SARS-CoV-2 RNA (RT-PCR) Pending Microbiology 09/13/20 17:34 Foot Left Wound Culture - Preliminary 09/12/20 20:58 Blood Blood Culture - Preliminary Group B Streptococcus isolated 09/12/20 20:55 Blood Blood Culture - Preliminary Group B Streptococcus isolated Post-procedural complaints: none Patient Feedback: Patient satisfied with anesthetic care.
[2020-09-15 16:53] LABS: Glucose Point of Care 312 (65-105)
[2020-09-15] MEDS: MIRTAZAPINE 15 MG TABLET PO (20:38)
[2020-09-15] MEDS: ACETAMINOPHEN 325 MG TABLET 650 MG PO (20:47)
[2020-09-15 21:37] LABS: Glucose Point of Care 279 (65-105)
[2020-09-15] MEDS: IBUPROFEN 400 MG TABLET PO (22:08)
[2020-09-16] VITALS (7 sets, daily range): BP systolic 99–115; BP diastolic 38–52; PULSE 57–72; RESP 20–21; TEMP 36.6–36.9; O2SAT 96–100
[2020-09-16 05:59] LABS: Hematocrit 30.6 % (37.0-47.0); Hemoglobin 8.9 g/dL (12.0-15.0); Mean Corpuscular HGB Conc 29.1 g/dl (32-36); Mean Corpuscular Hemoglobin 27.4 pg (26-34); Mean Corpuscular Volume 94.2 fl (80-100); Mean Platelet Volume 10.9 fl (7.4-10.4); Platelet Count Result 294 k/mm3 (150-375); Red Blood Count 3.25 M/mm3 (4.2-5.4); Red Cell Distribution Width 15.1 % (11.5-14.5); White Blood Count 19.3 K/mm3 (4.5-10.0)
[2020-09-16 06:14] LABS: Anion Gap 6 mmol/L (8-16); Blood Urea Nitrogen 36 mg/dL (7-17); Calcium 7.5 mg/dL (8.4-10.2); Carbon Dioxide 26 mmol/L (22-30); Chloride 104 mmol/L (98-107); Estimated CRCL calculation 27 ml/min; Estimated Glomerular Filt Rate 29; Glucose 227 mg/dL (65-105); Potassium 4.1 mmol/L (3.4-5.0); Sodium 136 mmol/L (137-145)
[2020-09-16 07:52] LABS: Glucose Point of Care 306 (65-105)
[2020-09-16] MEDS: SODIUM CHLORIDE 0.9% IV 1,000 ML 100 ML IV CONT ×2 (09:30→20:54)
[2020-09-16] MEDS: carvediloL 12.5 MG TABLET PO ×2 (09:31→20:55)
[2020-09-16] MEDS: ATORVASTATIN 40 MG TABLET PO (09:31)
[2020-09-16] MEDS: GABAPENTIN 400 MG CAPSULE PO ×2 (09:31→16:18)
[2020-09-16] MEDS: ENOXAPARIN 40 MG/0.4 ML SYRINGE SUB-Q (09:31)
[2020-09-16] MEDS: lisinopriL 2.5 MG TABLET PO (09:32)
[2020-09-16] MEDS: TOLNAFTATE 1% POWDER 45 GM BTL 1 APPLIC TOPICAL ×2 (09:33→20:58)
[2020-09-16] MEDS: INSULIN ASPART (*BKC) 100 UNITS/ML SUB-Q ×3 (09:33→16:20)
--- NOTE | 2020-09-16 09:49 | PM.IMPN ---
Progress Note: A&P Assessment and Plan (1) Uncontrolled diabetes mellitus: Qualifiers: Diabetes mellitus type: type 2 Glycemic state: with hyperglycemia Qualified Code(s): E11.65 - Type 2 diabetes mellitus with hyperglycemia Code(s): E11.65 - Type 2 diabetes mellitus with hyperglycemia Status: Acute Assessment and Plan: ACCUCHECKS< SSI< DM EDUCATOR< DM DIET< HBaic is 10, i will increase her dose of lantus fo tomorrow. Long discussion on better DM control at home 09/16/20 09:49 Patient is 80-year-old female with history of uncontrolled diabetes with a hemoglobin A1c of 10 presented emergency department with a complaint pain swelling and redness to her left lower extremity, patient was seen by an orthopedic surgeon on 09/14 and was taken to OR and had excisional debridement left diabetic foot ulcer including bone, wound culture is growing group B Streptococcus patient is being treated with imipenem and vancomycin will follow-up sensitivity, wound culture is pending, today patient states feeling better the pain is controlled, denies any fever or chills, currently patient is sitting in the chair, left lower extremity in the wound dressing, patient seen by her surgeon today and doing well postop. Today patient creatinine is significantly elevated, patient states she has been hydrating herself and urinating as well, to further evaluate will do the kidney ultrasound will start the patient on on high IV hydration, will monitor patient kidney function, patient's wound and blood culture is growing group B strep, and wound culture is growing staph aureus patient is being treated with imipenem, will follow up on sensitivity, since patient is treated with antibiotic risk of endocarditis is very low, will continue to monitor, patient states the pain in her left lower extremity is better denies any fever or chills, will be seen by her surgery team and further recommendation to follow (2) Diabetic foot ulcer: Qualifiers: Diabetic foot ulcer location: heel Diabetes mellitus type: type 2 Laterality: left Non-pressure ulcer stage: with necrosis of muscle Qualified Code(s): E11.621 - Type 2 diabetes mellitus with foot ulcer; 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 (3) Infected stasis ulcer of left lower extremity: Code(s): I83.229 - Varicose veins of left lower extremity with both ulcer of unspecified site and inflammation; L97.929 - Non-pressure chronic ulcer of unspecified part of left lower leg with unspecified severity Status: Acute Assessment and Plan: Bc are positive for group b strep, continue IV PRIMAXIN, continue to monitor WCC (4) Absent pedal pulses: Code(s): R09.89 - Other specified symptoms and signs involving the circulatory and respiratory systems Status: Acute Assessment and Plan: PT HAD VENOUS DOPPLER ORDERED NIMO SHOWS 0.85 Subjective Date/time seen: 09/16/20 09:49 Patient is 80-year-old female with history of uncontrolled diabetes with a hemoglobin A1c of 10 presented emergency department with a complaint pain swelling and redness to her left lower extremity, patient was seen by an orthopedic surgeon on 09/14 and was taken to OR and had excisional debridement left diabetic foot ulcer including bone, wound culture is growing group B Streptococcus patient is being treated with imipenem and vancomycin will follow-up sensitivity, wound culture is pending, today patient states feeling better the pain is controlled, denies any fever or chills, currently patient is sitting in the chair, left lower extremity in the wound dressing, patient seen by her surgeon today an
[2020-09-16 11:50] LABS: Glucose Point of Care 242 (65-105)
--- NOTE | 2020-09-16 11:55 | PCCDE ---
Diabetes education f/up: Lantus was discontinued on 09/14 and pt currently only on high dose correction scale. BG range last 24hrs 195-312mg/dl. 1153: spoke to Dr Vega and recommended basal bolus insulin regimen of 25 units Lantus daily and 8 units Novolog AC approx 1200: discussed with RNJustina Will await insulin orders and monitor discharge plan and instruct pt as appropriate.
[2020-09-16] MEDS: SOD HYPOCHLORITE 1/4 STRENGTH 473 ML 1 APPLIC TOPICAL (13:43)
--- NOTE | 2020-09-16 14:00 | PC.NURSE ---
dressing changed by wound nurses, documentation completed by them
[2020-09-16] MEDS: INSULIN GLARGINE (*BKC) 100 UNITS/ML 25 UNITS SUB-Q (16:19)
[2020-09-16] MEDS: INSULIN ASPART (*BKC) 100 UNITS/ML 8 UNITS SUB-Q (16:19)
[2020-09-16 17:04] LABS: SARS-CoV-2 RNA PCR Negative
[2020-09-16 17:07] LABS: Glucose Point of Care 242 (65-105)
[2020-09-16] MEDS: HYDROcodone/acetaminophen (*CRX) 5-325 MG TABLET 1 TAB PO (17:42)
[2020-09-16] MEDS: MORPHINE SULFATE (*CRX) 4 MG/ML INJ IV PUSH (20:53)
[2020-09-16] MEDS: MIRTAZAPINE 15 MG TABLET PO (20:55)
[2020-09-16 21:36] LABS: Glucose Point of Care 172 (65-105)
[2020-09-17 05:26] LABS: Hematocrit 29.1 % (37.0-47.0); Hemoglobin 8.7 g/dL (12.0-15.0); Mean Corpuscular HGB Conc 29.9 g/dl (32-36); Mean Corpuscular Hemoglobin 27.2 pg (26-34); Mean Corpuscular Volume 90.9 fl (80-100); Mean Platelet Volume 11.2 fl (7.4-10.4); Platelet Count Result 322 k/mm3 (150-375); Red Cell Distribution Width 15.2 % (11.5-14.5); White Blood Count 15.8 K/mm3 (4.5-10.0)
[2020-09-17 05:43] LABS: Anion Gap 5 mmol/L (8-16); Blood Urea Nitrogen 39 mg/dL (7-17); Calcium 7.7 mg/dL (8.4-10.2); Carbon Dioxide 26 mmol/L (22-30); Chloride 105 mmol/L (98-107); Estimated CRCL calculation 30 ml/min; Estimated Glomerular Filt Rate 34; Glucose 150 mg/dL (65-105); Potassium 4.7 mmol/L (3.4-5.0); Sodium 136 mmol/L (137-145)
[2020-09-17 06:06] VITALS: BP 105/51; PULSE 72; RESP 20; TEMP 37.1; O2SAT 95
[2020-09-17 08:00] VITALS: BP 98/42; O2SAT 97
[2020-09-17 08:07] LABS: Glucose Point of Care 129 (65-105)
[2020-09-17] MEDS: SODIUM CHLORIDE 0.9% IV 1,000 ML 100 ML IV CONT ×2 (08:44→20:27)
[2020-09-17] MEDS: GABAPENTIN 400 MG CAPSULE PO ×2 (08:48→16:38)
[2020-09-17] MEDS: ATORVASTATIN 40 MG TABLET PO (08:48)
[2020-09-17] MEDS: DOCUSATE SODIUM 100 MG CAPSULE PO ×2 (08:48→16:38)
[2020-09-17] MEDS: ENOXAPARIN 40 MG/0.4 ML SYRINGE SUB-Q (08:48)
[2020-09-17 08:54] LABS: Lactic Acid Reflex 0.9 mmol/L (0.7-2.1)
[2020-09-17] MEDS: TOLNAFTATE 1% POWDER 45 GM BTL 1 APPLIC TOPICAL ×2 (09:53→20:35)
[2020-09-17] MEDS: SOD HYPOCHLORITE 1/4 STRENGTH 473 ML 1 APPLIC TOPICAL (09:53)
[2020-09-17 11:27] LABS: Glucose Point of Care 228 (65-105)
[2020-09-17] MEDS: INSULIN ASPART (*BKC) 100 UNITS/ML SUB-Q ×2 (11:31→16:38)
[2020-09-17] MEDS: INSULIN ASPART (*BKC) 100 UNITS/ML 8 UNITS SUB-Q (11:32)
[2020-09-17] MEDS: ACETAMINOPHEN 325 MG TABLET 650 MG PO ×2 (11:44→17:46)
--- NOTE | 2020-09-17 13:23 | PM.IMPN ---
Progress Note: A&P Assessment and Plan (1) Uncontrolled diabetes mellitus: Qualifiers: Diabetes mellitus type: type 2 Glycemic state: with hyperglycemia Qualified Code(s): E11.65 - Type 2 diabetes mellitus with hyperglycemia Code(s): E11.65 - Type 2 diabetes mellitus with hyperglycemia Status: Acute Assessment and Plan: ACCUCHECKS< SSI< DM EDUCATOR< DM DIET< HBaic is 10, i will increase her dose of lantus fo tomorrow. Long discussion on better DM control at home 09/17/20 13:23 Patient is 80-year-old female with history of uncontrolled diabetes with a hemoglobin A1c of 10 presented emergency department with a complaint pain swelling and redness to her left lower extremity, patient was seen by an orthopedic surgeon on 09/14 and was taken to OR and had excisional debridement left diabetic foot ulcer including bone, wound culture is growing group B Streptococcus patient is being treated with imipenem and vancomycin will follow-up sensitivity, wound culture is pending, today patient states feeling better the pain is controlled, denies any fever or chills, currently patient is sitting in the chair, left lower extremity in the wound dressing, patient seen by her surgeon today and doing well postop. on 09/16 patient creatinine was significantly elevated, patient stated she has been hydrating herself and urinating as well, to further evaluate did the kidney ultrasound which is normal without any hydronephrosis, started the patient on on IV hydration, patient's wound and blood culture is growing group B strep, and wound culture is growing staph aureus patient is being treated with imipenem, will follow up on sensitivity, since patient is treated with antibiotic risk of endocarditis is very low, will continue to monitor, today 09/17 patient creatinine is improved sligthly, patient being hydrated, patient blood pressure is soft, will continue to monitor, patient is sitting in th chair and states the pain in her left lower extremity is better denies any fever or chills, will be seen by her surgery team and further recommendation to follow (2) Diabetic foot ulcer: Qualifiers: Diabetic foot ulcer location: heel Diabetes mellitus type: type 2 Laterality: left Non-pressure ulcer stage: with necrosis of muscle Qualified Code(s): E11.621 - Type 2 diabetes mellitus with foot ulcer; 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 (3) Infected stasis ulcer of left lower extremity: Code(s): I83.229 - Varicose veins of left lower extremity with both ulcer of unspecified site and inflammation; L97.929 - Non-pressure chronic ulcer of unspecified part of left lower leg with unspecified severity Status: Acute Assessment and Plan: Bc are positive for group b strep, continue IV PRIMAXIN, continue to monitor WCC (4) Absent pedal pulses: Code(s): R09.89 - Other specified symptoms and signs involving the circulatory and respiratory systems Status: Acute Assessment and Plan: PT HAD VENOUS DOPPLER ORDERED NIMO SHOWS 0.85 Subjective Date/time seen: 09/17/20 13:23 Patient is 80-year-old female with history of uncontrolled diabetes with a hemoglobin A1c of 10 presented emergency department with a complaint pain swelling and redness to her left lower extremity, patient was seen by an orthopedic surgeon on 09/14 and was taken to OR and had excisional debridement left diabetic foot ulcer including bone, wound culture is growing group B Streptococcus patient is being treated with imipenem and vancomycin will follow-up sensitivity, wound culture is pending, today patient states feeling better the pain is
--- NOTE | 2020-09-17 13:48 | PM.PNORT ---
Progress Note: A&P Additional Plan POD3 DOING WELL. CONTINUE DRESSING CHANGES. Time Spent With Patient Time with patient: 15 - 25 minutes Subjective Subjective Date/Time Seen: 09/17/20 13:48 POD 3 DOING WELL. NO CALF PAIN. NO NEW COMPLAINTS Exam Extrem: Other: VSS AFEBRILE DRESSING DRY WOUND GRANULATING, SOME NECROSIS, CALF SOFT NON TENDER Objective Data Vital Signs Vital Signs: Vital Signs - 24 hr 09/16/20 14:00 09/16/20 20:55 09/16/20 21:53 Temperature 36.9 C 36.6 C Pulse Rate 69 72 72 Respiratory Rate 21 H 20 Blood Pressure 99/38 L 108/52 L Pulse Oximetry 96 96 98 09/17/20 06:06 09/17/20 08:00 Temperature 37.1 C Pulse Rate 72 Respiratory Rate 20 Blood Pressure 105/51 L 98/42 L Pulse Oximetry 95 Intake/Output Intake/Output: Intake & Output 09/14/20 09/15/20 09/16/20 09/17/20 23:59 23:59 23:59 23:59 Intake Total 4550 2820 2870 1360 Output Total 600 400 Balance 3950 2420 2870 1360 Meds/Results Medications: Active Medications Generic Name Dose Route Start Last Admin Trade Name Freq PRN Reason Stop Dose Admin Acetaminophen 650 mg 09/12/20 22:41 09/17/20 11:44 Acetaminophen 325 Mg Tablet PO 650 mg Q4H PRN Administration Mild Pain (1-3) or Fever Hydrocodone Bitart/Acetaminophen 1 tab 09/12/20 22:41 09/16/20 17:42 Hydrocodone/Acetaminophen (*Crx) 5-325 Mg Tablet PO 1 tab Q4H PRN Administration Pain Rated 4-6 Hydrocodone Bitart/Acetaminophen 1 tab 09/13/20 12:57 Hydrocodone/Acetaminophen (*Crx) 5-325 Mg Tablet PO Q6H PRN Pain Rated 4-6 Atorvastatin Calcium 40 mg 09/14/20 09:00 09/17/20 08:48 Atorvastatin 40 Mg Tablet PO 40 mg DAILY NEW Administration Carvedilol 12.5 mg 09/13/20 21:00 09/17/20 08:46 Carvedilol 12.5 Mg Tablet PO Not Given Q12HR NEW Dextrose 12.5 gm 09/13/20 12:53 Dextrose 50% 25 Gm/50 Ml Syringe IV PUSH PRN PRN Hypoglycemia Protocol Docusate Sodium 100 mg 09/14/20 17:00 09/17/20 08:48 Docusate Sodium 100 Mg Capsule PO 100 mg BID NEW Administration Enoxaparin Sodium 40 mg 09/14/20 09:00 09/17/20 08:48 Enoxaparin 40 Mg/0.4 Ml Syringe SUB-Q 40 mg DAILY NEW Administration Fentanyl Citrate 25 mcg 09/14/20 14:25 Fentanyl Citrate Inj (*Crx) 100 Mcg/2 Ml Vial IV PUSH Q2M PRN Pain Gabapentin 400 mg 09/13/20 17:00 09/17/20 08:48 Gabapentin 400 Mg Capsule PO 400 mg BID NEW Administration Glucagon 1 mg 09/13/20 12:53 Glucagon For Inj 1 Mg Vial IM PRN PRN Hypoglycemia Protocol Glucose 15 gm 09/13/20 12:53 Glucose Oral Gel 15 Gm Of Glucse In 37.5 Gm Tube PO PRN PRN Hypoglycemia Protocol Imipenem/Cilastatin Sodium 500 mg in 100 mls @ 300 mls/hr 09/13/20 06:00 09/17/20 11:35 Primaxin 500 Mg/D5w 100 Ml IVPB 200 mls/hr Q6HR NEW Administration Dextrose 1,000 mls @ 100 mls/hr 09/13/20 12:53 Dextrose 5% 1,000 Ml IVPB PRN PRN Hypoglycemia Protocol Sodium Chloride 1,000 mls @ 100 mls/hr 09/16/20 07:55 09/17/20 12:26 Normal Saline Iv IV CONT 100 mls/hr .Q10H NEW Infusion Insulin Aspart 4 - 8 units 09/13/20 17:00 09/17/20 11:31 Insulin Aspart (*Bkc) 100 Units/Ml SUB-Q 4 units TIDWM NEW Administration Protocol Insulin Aspart 8 units 09/16/20 17:00 09/17/20 11:32 Insulin Aspart (*Bkc) 100 Units/Ml 0.083 units/kg (8 units) 8 units SUB-Q Administration TIDWM [facility] Insulin Glargine 25 units 09/16/20 15:20 09/16/20 16:19 Insulin Glargine (*Bkc) 100 Units/Ml 0.25 units/kg (25 units) 25 units SUB-Q Administration [facility] Lisinopril 2.5 mg 09/14/20 09:00 09/17/20 08:46 Lisinopril 2.5 Mg Tablet PO Not Given DAILY NEW Magnesium Hydroxide 30 ml 09/14/20 16:25 Magnesium Hydroxide Susp 30 Ml Udc PO BID PRN Constipation Miconazole Nitrate 1 applic 09/13/20 09:00 09/17/20 09:53 Miconazole 2% Ant
[2020-09-17 14:00] VITALS: BP 112/81; PULSE 69; RESP 16; TEMP 36.3; O2SAT 98
[2020-09-17 16:21] LABS: Glucose Point of Care 206 (65-105)
[2020-09-17 20:19] VITALS: O2SAT 98
[2020-09-17] MEDS: MIRTAZAPINE 15 MG TABLET PO (20:29)
[2020-09-17 20:30] VITALS: PULSE 64
[2020-09-17] MEDS: INSULIN GLARGINE (*BKC) 100 UNITS/ML 25 UNITS SUB-Q (20:30)
[2020-09-17] MEDS: carvediloL 12.5 MG TABLET PO (20:30)
[2020-09-17 21:11] LABS: Glucose Point of Care 313 (65-105)
[2020-09-17 21:40] VITALS: BP 116/50; PULSE 64; RESP 18; TEMP 36; O2SAT 97
[2020-09-18] MEDS: HYDROcodone/acetaminophen (*CRX) 5-325 MG TABLET 1 TAB PO ×3 (05:23→15:20)
[2020-09-18 06:00] VITALS: BP 119/56; PULSE 63; RESP 20; TEMP 36.4; O2SAT 99
[2020-09-18 06:02] LABS: Hematocrit 29.1 % (37.0-47.0); Hemoglobin 8.6 g/dL (12.0-15.0); Mean Corpuscular HGB Conc 29.6 g/dl (32-36); Mean Corpuscular Hemoglobin 27.1 pg (26-34); Mean Corpuscular Volume 91.8 fl (80-100); Mean Platelet Volume 11.2 fl (7.4-10.4); Platelet Count Result 311 k/mm3 (150-375); Red Blood Count 3.17 M/mm3 (4.2-5.4); Red Cell Distribution Width 15.5 % (11.5-14.5); White Blood Count 14.2 K/mm3 (4.5-10.0)
[2020-09-18 06:14] LABS: Anion Gap 3 mmol/L (8-16); Blood Urea Nitrogen 42 mg/dL (7-17); Calcium 7.8 mg/dL (8.4-10.2); Carbon Dioxide 26 mmol/L (22-30); Chloride 105 mmol/L (98-107); Estimated CRCL calculation 34 ml/min; Estimated Glomerular Filt Rate 40; Glucose 275 mg/dL (65-105); Potassium 4.8 mmol/L (3.4-5.0); Sodium 134 mmol/L (137-145)
[2020-09-18] MEDS: SODIUM CHLORIDE 0.9% IV 1,000 ML 100 ML IV CONT ×2 (07:09→20:04)
[2020-09-18 07:53] LABS: Glucose Point of Care 291 (65-105)
[2020-09-18] MEDS: GABAPENTIN 400 MG CAPSULE PO ×2 (08:33→17:01)
[2020-09-18] MEDS: ATORVASTATIN 40 MG TABLET PO (08:33)
[2020-09-18] MEDS: DOCUSATE SODIUM 100 MG CAPSULE PO ×2 (08:33→17:02)
[2020-09-18] MEDS: ENOXAPARIN 40 MG/0.4 ML SYRINGE SUB-Q (08:33)
[2020-09-18] MEDS: TOLNAFTATE 1% POWDER 45 GM BTL 1 APPLIC TOPICAL ×2 (08:34→20:07)
[2020-09-18] MEDS: INSULIN ASPART (*BKC) 100 UNITS/ML SUB-Q ×5 (08:34→17:02)
[2020-09-18] MEDS: SOD HYPOCHLORITE 1/4 STRENGTH 473 ML 1 APPLIC TOPICAL (10:58)
--- NOTE | 2020-09-18 12:09 | PM.IMPN ---
Progress Note: A&P Assessment and Plan (1) Uncontrolled diabetes mellitus: Qualifiers: Diabetes mellitus type: type 2 Glycemic state: with hyperglycemia Qualified Code(s): E11.65 - Type 2 diabetes mellitus with hyperglycemia Code(s): E11.65 - Type 2 diabetes mellitus with hyperglycemia Status: Acute Assessment and Plan: ACCUCHECKS< SSI< DM EDUCATOR< DM DIET< HBaic is 10, i will increase her dose of lantus fo tomorrow. Long discussion on better DM control at home 09/18/20 12:09 Patient is 80-year-old female with history of uncontrolled diabetes with a hemoglobin A1c of 10 presented emergency department with a complaint pain swelling and redness to her left lower extremity, patient was seen by an orthopedic surgeon on 09/14 and was taken to OR and had excisional debridement left diabetic foot ulcer including bone, wound culture is growing group B Streptococcus patient is being treated with imipenem and vancomycin will follow-up sensitivity, wound culture is pending, today patient states feeling better the pain is controlled, denies any fever or chills, currently patient is sitting in the chair, left lower extremity in the wound dressing, patient seen by her surgeon today and doing well postop. on 09/16 patient creatinine was significantly elevated, patient stated she has been hydrating herself and urinating as well, to further evaluate did the kidney ultrasound which is normal without any hydronephrosis, started the patient on on IV hydration, patient's wound and blood culture is growing group B strep, and wound culture is growing staph aureus patient is being treated with imipenem, will follow up on sensitivity, since patient is treated with antibiotic risk of endocarditis is very low, will continue to monitor, today 09/18 wound culture is growing MRSA and wound and blood culture is growing group B Streptococcus, patient being treated with vancomycin will continue, patient creatinine has improved 1.3 today from 1.7 on 09/01, patient being hydrated, patient blood pressure is soft, will continue to monitor, patient is sitting in the chair and states the pain in her left lower extremity is better denies any fever or chills, will be seen by her surgery team and further recommendation to follow (2) Diabetic foot ulcer: Qualifiers: Diabetes mellitus type: type 2 Diabetic foot ulcer location: heel Laterality: left Non-pressure ulcer stage: with necrosis of muscle Qualified Code(s): E11.621 - Type 2 diabetes mellitus with foot ulcer; 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 (3) Infected stasis ulcer of left lower extremity: Code(s): I83.229 - Varicose veins of left lower extremity with both ulcer of unspecified site and inflammation; L97.929 - Non-pressure chronic ulcer of unspecified part of left lower leg with unspecified severity Status: Acute Assessment and Plan: Bc are positive for group b strep, continue IV PRIMAXIN, continue to monitor WCC (4) Absent pedal pulses: Code(s): R09.89 - Other specified symptoms and signs involving the circulatory and respiratory systems Status: Acute Assessment and Plan: PT HAD VENOUS DOPPLER ORDERED NIOM SHOWS 0.85 Subjective Date/time seen: 09/18/20 12:09 Patient is 80-year-old female with history of uncontrolled diabetes with a hemoglobin A1c of 10 presented emergency department with a complaint pain swelling and redness to her left lower extremity, patient was seen by an orthopedic surgeon on 09/14 and was taken to OR and had excisional debridement left diabetic foot ulcer including bone, wound culture is growing group B St
[2020-09-18 12:10] LABS: Glucose Point of Care 290 (65-105)
[2020-09-18 15:21] VITALS: BP 139/54; PULSE 75
[2020-09-18 16:39] LABS: Glucose Point of Care 242 (65-105)
[2020-09-18 20:00] VITALS: O2SAT 94
[2020-09-18] MEDS: INSULIN GLARGINE (*BKC) 100 UNITS/ML 25 UNITS SUB-Q (20:06)
[2020-09-18 20:07] VITALS: PULSE 80
[2020-09-18] MEDS: MIRTAZAPINE 15 MG TABLET PO (20:07)
[2020-09-18] MEDS: carvediloL 12.5 MG TABLET PO (20:07)
[2020-09-18 20:39] LABS: Glucose Point of Care 207 (65-105)
[2020-09-18 21:31] VITALS: BP 130/55; PULSE 77; RESP 18; TEMP 36.7; O2SAT 99
[2020-09-19 05:00] VITALS: BP 118/50; PULSE 68; RESP 20; TEMP 36.4; O2SAT 98
[2020-09-19 05:42] LABS: Hematocrit 30.9 % (37.0-47.0); Hemoglobin 9.3 g/dL (12.0-15.0); Mean Corpuscular HGB Conc 30.1 g/dl (32-36); Mean Corpuscular Hemoglobin 27.8 pg (26-34); Mean Corpuscular Volume 92.5 fl (80-100); Mean Platelet Volume 11.4 fl (7.4-10.4); Platelet Count Result 321 k/mm3 (150-375); Red Blood Count 3.34 M/mm3 (4.2-5.4); Red Cell Distribution Width 15.5 % (11.5-14.5); White Blood Count 15.6 K/mm3 (4.5-10.0)
[2020-09-19] MEDS: SODIUM CHLORIDE 0.9% IV 1,000 ML 100 ML IV CONT (05:55)
[2020-09-19 05:58] LABS: Anion Gap 3 mmol/L (8-16); Blood Urea Nitrogen 34 mg/dL (7-17); Calcium 7.9 mg/dL (8.4-10.2); Carbon Dioxide 26 mmol/L (22-30); Chloride 106 mmol/L (98-107); Estimated CRCL calculation 44 ml/min; Estimated Glomerular Filt Rate 54; Glucose 231 mg/dL (65-105); Potassium 5.1 mmol/L (3.4-5.0); Sodium 135 mmol/L (137-145)
[2020-09-19 07:45] VITALS: PULSE 72; RESP 20; O2SAT 98
[2020-09-19 08:03] VITALS: PULSE 72
[2020-09-19] MEDS: ATORVASTATIN 40 MG TABLET PO (08:03)
[2020-09-19] MEDS: carvediloL 12.5 MG TABLET PO ×2 (08:03→20:19)
[2020-09-19] MEDS: GABAPENTIN 400 MG CAPSULE PO ×2 (08:03→16:58)
[2020-09-19] MEDS: lisinopriL 2.5 MG TABLET PO (08:03)
[2020-09-19] MEDS: TOLNAFTATE 1% POWDER 45 GM BTL 1 APPLIC TOPICAL ×2 (08:04→20:19)
[2020-09-19] MEDS: ENOXAPARIN 40 MG/0.4 ML SYRINGE SUB-Q (08:04)
[2020-09-19] MEDS: INSULIN ASPART (*BKC) 100 UNITS/ML SUB-Q ×5 (08:06→16:59)
[2020-09-19 08:33] LABS: Glucose Point of Care 325 (65-105)
[2020-09-19] MEDS: ACETAMINOPHEN 325 MG TABLET 650 MG PO (09:33)
--- NOTE | 2020-09-19 09:33 | PM.PNORT ---
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 See wound care orders. PT/OT. TTWB LLE. Elevate LLE on pillows. Offload heel Wound Cultures with group B strep and MRSA. Consider ID consult. Will continue to follow. (2) Uncontrolled diabetes mellitus: Qualifiers: Diabetes mellitus type: type 2 Glycemic state: with hyperglycemia Qualified Code(s): E11.65 - Type 2 diabetes mellitus with hyperglycemia Code(s): E11.65 - Type 2 diabetes mellitus with hyperglycemia Status: Acute Assessment and Plan: Will need close diabetic control for optimal healing. Will need outpatient follow up appointment set up prior to discharge for medication management. Diabetic diet education. (3) Infected stasis ulcer of left lower extremity: Code(s): I83.229 - Varicose veins of left lower extremity with both ulcer of unspecified site and inflammation; L97.929 - Non-pressure chronic ulcer of unspecified part of left lower leg with unspecified severity Status: Acute Assessment and Plan: Dakin's soaked gauzed to posterior and medial venous stasis ulcers. Orders clarified. Subjective Subjective Date/Time Seen: 09/19/20 09:33 POD #5: Debridement of Left DFU with excision of bone Patient up in chair. No new complaints. Pain with dressing changes. Review of Systems Constitutional: Constitutional: Reports as per HPI, Denies chills, Denies fatigue, Denies fever(s) and Denies weakness Cardiovascular: Cardiovascular: Denies chest pain, Reports pedal edema, Reports leg edema and Denies lightheadedness Respiratory: Respiratory: Denies cough and Denies dyspnea Gastrointestinal: Gastrointestinal: Denies abdominal pain, Denies diarrhea and Denies vomiting Genitourinary: Genitourinary: Reports no additional female genitourinary complaints Musculoskeletal: Musculoskeletal: Reports other (left foot wound ) Exam Const: General: comfortable and no acute distress Resp: Effort & Inspection: normal respiratory effort Cardio: Rate: regular rate Rhythm: regular rhythm GI: Inspection: non-distended GI Palp: Yes Soft to palpation, No Tenderness to palpation present (GI) and No Guarding due to palpation present (GI) Skin: Wounds: wounds noted (see below ) Other: Large wound on the plantar aspect of the left foot with 80% necrosis/sloughing tissue and 20% pink/new granulation. Venous stasis ulcer on the posterior aspect of the left leg as well as medial anterior aspect. New area of necrosis on the plantar aspect of the 5th metatarsal noted as well. Surrounding tissue with redness, warmth. Mild malodor noted. No purulence. Unable to palpate pedal pulses. Insensate. Moderate tenderness with dressing changes in the lower leg, area of venous stasis ulcers. Second and third ray amputations noted. Neuro: Cognition (Neuro): normal cognition Speech: normal speech Extrem: Left lower extremity: foot Details: vascular exam (Unable to palpate a pedal pulse) and motor-sensory exam light-touch abnormal in the great toe, in the 4th digit and in the 5th digit; not in the 2nd digit (absent ) and not in the 3rd digit (absent ); abnormal capillary refill Objective Data Vital Signs Vital Signs:
[2020-09-19] MEDS: SOD HYPOCHLORITE 1/4 STRENGTH 473 ML 1 APPLIC TOPICAL (09:35)
[2020-09-19] MEDS: FUROSEMIDE INJ 40 MG/4 ML VIAL 20 MG IV PUSH (10:08)
[2020-09-19 11:39] LABS: Glucose Point of Care 221 (65-105)
--- NOTE | 2020-09-19 12:19 | PCDIET ---
Physician consult for DM education. Spoke with patient today regarding diabetic diet. Patient instruction has been attached. Please see nutritional teaching intervention. Thank you for the consult.
[2020-09-19 13:00] VITALS: BP 118/42; PULSE 66; RESP 17; TEMP 36.5; O2SAT 98
--- NOTE | 2020-09-19 13:04 | PM.IMPN ---
Progress Note: A&P Assessment and Plan (1) Uncontrolled diabetes mellitus: Qualifiers: Diabetes mellitus type: type 2 Glycemic state: with hyperglycemia Qualified Code(s): E11.65 - Type 2 diabetes mellitus with hyperglycemia Code(s): E11.65 - Type 2 diabetes mellitus with hyperglycemia Status: Acute Assessment and Plan: ACCUCHECKS< SSI< DM EDUCATOR< DM DIET< HBaic is 10, i will increase her dose of lantus fo tomorrow. Long discussion on better DM control at home 09/19/20 13:04 Patient is 80-year-old female with history of uncontrolled diabetes with a hemoglobin A1c of 10 presented emergency department with a complaint pain swelling and redness to her left lower extremity, patient was seen by an orthopedic surgeon on 09/14 and was taken to OR and had excisional debridement left diabetic foot ulcer including bone, wound culture is growing group B Streptococcus patient is being treated with imipenem and vancomycin will follow-up sensitivity, wound culture is pending, today patient states feeling better the pain is controlled, denies any fever or chills, currently patient is sitting in the chair, left lower extremity in the wound dressing, patient seen by her surgeon today and doing well postop. on 09/16 patient creatinine was significantly elevated, patient stated she has been hydrating herself and urinating as well, to further evaluate did the kidney ultrasound which is normal without any hydronephrosis, started the patient on on IV hydration, patient's wound and blood culture is growing group B strep, and wound culture is growing staph aureus patient is being treated with imipenem, will follow up on sensitivity, since patient is treated with antibiotic risk of endocarditis is very low, will continue to monitor, today 09/19 wound culture is growing MRSA and wound and blood culture is growing group B Streptococcus, patient being treated with vancomycin will continue, patient creatinine has improved 1.0 today from 1.7 on 09/01, patient had being hydrated, patient blood sugars close to 200 to 300 will increase lantus to 20 BID from 25u daily. 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 (3) Infected stasis ulcer of left lower extremity: Code(s): I83.229 - Varicose veins of left lower extremity with both ulcer of unspecified site and inflammation; L97.929 - Non-pressure chronic ulcer of unspecified part of left lower leg with unspecified severity Status: Acute Assessment and Plan: Bc are positive for group b strep, continue IV PRIMAXIN, continue to monitor WCC (4) Absent pedal pulses: Code(s): R09.89 - Other specified symptoms and signs involving the circulatory and respiratory systems Status: Acute Assessment and Plan: PT HAD VENOUS DOPPLER ORDERED NIMO SHOWS 0.85 Subjective Date/time seen: 09/19/20 13:04 Patient is 80-year-old female with history of uncontrolled diabetes with a hemoglobin A1c of 10 presented emergency department with a complaint pain swelling and redness to her left lower extremity, patient was seen by an orthopedi
[2020-09-19 16:55] LABS: Glucose Point of Care 171 (65-105)
[2020-09-19 20:00] VITALS: BP 114/46; PULSE 65; RESP 26; TEMP 36.2; O2SAT 98
[2020-09-19 20:19] VITALS: PULSE 68
[2020-09-19] MEDS: INSULIN GLARGINE (*BKC) 100 UNITS/ML 20 UNITS SUB-Q (20:19)
[2020-09-19] MEDS: MIRTAZAPINE 15 MG TABLET PO (20:19)
[2020-09-19 20:35] LABS: Glucose Point of Care 194 (65-105)
--- NOTE | 2020-09-20 | ECHO_ITS ---
Patient Info Name: Owen Escobar Age: 80 years : 1940 Gender: Female Ht: 61 in Wt: 217 lbs BSA: 2.11 m2 HR: 71 bpm BP: 127 / 52 mmHg Technical Quality: Poor Exam Date: 09/20/2020 2:02 PM Exam Location: [facility] Patient Status: Inpatient Admit Date: 09/12/2020 Staff Ordering Physician: Kamaljit Vega MD Ear Flap Binder: Mildred Pierson RDCS Attending Provider: Uli Porter MD Exam Type: CA echo dop color flow w con Study Info Indications Z01.818 - Encounter for other preprocedural examination Complete two-dimensional, color flow and Doppler transthoracic echocardiogram is performed with contrast to opacify the left ventricle and to improve the deliniation of the left ventricle endocardial borders. Reason for Poor Study: poor echocardiographic windows Summary 1. Technically suboptimal study due to poor sonographic images. 2. Definity contrast administered improved wall motion interpretation. 3. Left ventricular chamber dimension is normal. 4. Left ventricular systolic function is normal, estimated at 55-60%. 5. There is mildly increased left ventricular wall thickness. 6. The left ventricular diastolic function is abnormal. 7. E/e' 11 is mildly elevated. 8. Right ventricular systolic function is mildly reduced based on TAPSE 1.5 cm. 9. Left atrial chamber dimension is mildly enlarged. 10. The mitral valve has mildly calcified annulus. 11. There is mild to moderate tricuspid valve regurgitation. 12. Moderate pulmonary hypertension, estimated pulmonary arterial systolic pressure is 56 mmHg. 13. Normal inferior vena cava with <50% collapse upon inspiration consistent with elevated right atrial pressure, 10 mmHg. Left Ventricle E/e' 11 is mildly elevated. Definity contrast administered improved wall motion interpretation. Technically suboptimal study due to poor sonographic images. Left ventricular chamber dimension is normal. Left ventricular systolic function is normal, estimated at 55-60%. There is mildly increased left ventricular wall thickness. The left ventricular diastolic function is abnormal. Right Ventricle Right ventricular systolic function is mildly reduced based on TAPSE 1.5 cm. Right ventricular chamber dimension is not well visualized. Left Atria Left atrial chamber dimension is mildly enlarged. Right Atria Right atrial chamber dimension is normal. Aortic Valve The aortic valve is probable trileaflet. There is no aortic valve stenosis. There is no aortic valve regurgitation. Pulmonic Valve There is no pulmonic regurgitation. Mitral Valve The mitral valve has mildly calcified annulus. There is no mitral valve stenosis. There is no mitral valve regurgitation. Tricuspid Valve There is mild to moderate tricuspid valve regurgitation. Moderate pulmonary hypertension, estimated pulmonary arterial systolic pressure is 56 mmHg. Pericardium/Pleural There is no pericardial effusion. Inferior Vena Cava Normal inferior vena cava with <50% collapse upon inspiration consistent with elevated right atrial pressure, 10 mmHg. Aorta The aortic root size at the sinus of Valsalva is normal. Left Ventricular Outflow Tract Name Value Normal LVOT 2D LVOT Diameter
[2020-09-20 04:00] VITALS: BP 127/52; PULSE 65; RESP 26; TEMP 36.5; O2SAT 99
[2020-09-20 05:42] LABS: Hemoglobin 8.6 g/dL (12.0-15.0); Mean Corpuscular HGB Conc 29.7 g/dl (32-36); Mean Corpuscular Hemoglobin 27.1 pg (26-34); Mean Corpuscular Volume 91.5 fl (80-100); Mean Platelet Volume 11.1 fl (7.4-10.4); Platelet Count Result 325 k/mm3 (150-375); Red Blood Count 3.17 M/mm3 (4.2-5.4); Red Cell Distribution Width 15.7 % (11.5-14.5); White Blood Count 14.8 K/mm3 (4.5-10.0)
[2020-09-20 05:54] LABS: Blood Urea Nitrogen 27 mg/dL (7-17); Calcium 8.2 mg/dL (8.4-10.2); Carbon Dioxide 28 mmol/L (22-30); Estimated CRCL calculation 49 ml/min; Estimated Glomerular Filt Rate > 60; Glucose 222 mg/dL (65-105)
[2020-09-20 06:11] LABS: Anion Gap 2 mmol/L (8-16); Chloride 105 mmol/L (98-107); Potassium 4.6 mmol/L (3.4-5.0); Sodium 135 mmol/L (137-145)
[2020-09-20 07:51] VITALS: O2SAT 99
[2020-09-20] MEDS: INSULIN GLARGINE (*BKC) 100 UNITS/ML 20 UNITS SUB-Q ×2 (08:36→20:50)
[2020-09-20] MEDS: INSULIN ASPART (*BKC) 100 UNITS/ML SUB-Q ×4 (08:37→17:21)
[2020-09-20 08:44] LABS: Glucose Point of Care 211 (65-105)
[2020-09-20 08:45] VITALS: PULSE 93
[2020-09-20] MEDS: GABAPENTIN 400 MG CAPSULE PO ×2 (08:45→17:25)
[2020-09-20] MEDS: ENOXAPARIN 40 MG/0.4 ML SYRINGE SUB-Q (08:45)
[2020-09-20] MEDS: DOCUSATE SODIUM 100 MG CAPSULE PO ×2 (08:45→17:25)
[2020-09-20] MEDS: lisinopriL 2.5 MG TABLET PO (08:45)
[2020-09-20] MEDS: ATORVASTATIN 40 MG TABLET PO (08:45)
[2020-09-20] MEDS: TOLNAFTATE 1% POWDER 45 GM BTL 1 APPLIC TOPICAL ×2 (08:45→20:53)
[2020-09-20] MEDS: carvediloL 12.5 MG TABLET PO ×2 (08:45→20:50)
[2020-09-20] MEDS: SOD HYPOCHLORITE 1/4 STRENGTH 473 ML 1 APPLIC TOPICAL ×2 (08:45→20:54)
--- NOTE | 2020-09-20 09:35 | PM.PNORT ---
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 See wound care orders. PT/OT. TTWB LLE. Elevate LLE on pillows. Offload heel Wound Cultures with group B strep and MRSA. Discussed further surgical intervention with the patient in depth today. She is hesitant but understands the need. Will determine final recommendations pending discussion with Dr. Huerta today. (2) Uncontrolled diabetes mellitus: Qualifiers: Diabetes mellitus type: type 2 Glycemic state: with hyperglycemia Qualified Code(s): E11.65 - Type 2 diabetes mellitus with hyperglycemia Code(s): E11.65 - Type 2 diabetes mellitus with hyperglycemia Status: Acute Assessment and Plan: Will need close diabetic control for optimal healing. Will need outpatient follow up appointment set up prior to discharge for medication management. Diabetic diet education. (3) Infected stasis ulcer of left lower extremity: Code(s): I83.229 - Varicose veins of left lower extremity with both ulcer of unspecified site and inflammation; L97.929 - Non-pressure chronic ulcer of unspecified part of left lower leg with unspecified severity Status: Acute Assessment and Plan: Dakin's soaked gauzed to posterior and medial venous stasis ulcers. Orders clarified. Subjective Subjective Date/Time Seen: 09/20/20 09:35 POD #6: Debridement of Left DFU with excision of bone Patient sitting up in bed. Complaints of left foot pain. Concerns regarding definitive surgery for the left foot. Review of Systems Constitutional: Constitutional: Reports as per HPI, Denies chills, Denies fatigue, Denies fever(s) and Denies weakness Cardiovascular: Cardiovascular: Denies chest pain, Reports pedal edema, Reports leg edema and Denies lightheadedness Respiratory: Respiratory: Denies cough and Denies dyspnea Gastrointestinal: Gastrointestinal: Denies abdominal pain, Denies diarrhea and Denies vomiting Genitourinary: Genitourinary: Reports no additional female genitourinary complaints Musculoskeletal: Musculoskeletal: Reports other (left foot wound ) Exam Const: General: comfortable and no acute distress Resp: Effort & Inspection: normal respiratory effort Cardio: Rate: regular rate Rhythm: regular rhythm GI: Inspection: non-distended GI Palp: Yes Soft to palpation, No Tenderness to palpation present (GI) and No Guarding due to palpation present (GI) Skin: Wounds: wounds noted (see below ) Other: Dressing left foot c/d/i. Left leg proximal to the wound is improved in regards to redness/warmth/swelling. Large wound on the plantar aspect of the left foot with 80% necrosis/sloughing tissue and 20% pink/new granulation. Venous stasis ulcer on the posterior aspect of the left leg as well as medial anterior aspect. New area of necrosis on the plantar aspect of the 5th metatarsal noted as well. Surrounding tissue with redness, warmth. Mild malodor noted. No purulence. Unable to palpate pedal pulses. Insensate. Moderate tenderness with dressing changes in the lower leg, area of venous stasis ulcers. Second and third ray amputations noted. Neuro: Cognition (Neuro): normal cognition Speech: normal speech Extrem: Left lower extrem
[2020-09-20 10:39] VITALS: BMI 10.0
--- NOTE | 2020-09-20 11:57 | PM.IMPN ---
Progress Note: A&P Assessment and Plan (1) Uncontrolled diabetes mellitus: Qualifiers: Diabetes mellitus type: type 2 Glycemic state: with hyperglycemia Qualified Code(s): E11.65 - Type 2 diabetes mellitus with hyperglycemia Code(s): E11.65 - Type 2 diabetes mellitus with hyperglycemia Status: Acute Assessment and Plan: ACCUCHECKS< SSI< DM EDUCATOR< DM DIET< HBaic is 10, i will increase her dose of lantus fo tomorrow. Long discussion on better DM control at home 09/20/20 11:57 Patient is 80-year-old female with history of uncontrolled diabetes with a hemoglobin A1c of 10 presented emergency department with a complaint pain swelling and redness to her left lower extremity, patient was seen by an orthopedic surgeon on 09/14 and was taken to OR and had excisional debridement left diabetic foot ulcer including bone, wound culture is growing group B Streptococcus patient is being treated with imipenem and vancomycin will follow-up sensitivity, wound culture is pending, today patient states feeling better the pain is controlled, denies any fever or chills, currently patient is sitting in the chair, left lower extremity in the wound dressing, patient seen by her surgeon today and doing well postop. on 09/16 patient creatinine was significantly elevated, patient stated she has been hydrating herself and urinating as well, to further evaluate did the kidney ultrasound which is normal without any hydronephrosis, started the patient on on IV hydration, patient's wound and blood culture is growing group B strep, and wound culture is growing staph aureus patient is being treated with imipenem, will follow up on sensitivity, since patient is treated with antibiotic risk of endocarditis is very low, will continue to monitor, today 09/20 wound culture is growing MRSA and wound and blood culture is growing group B Streptococcus, patient being treated with vancomycin will continue as patient white counts are trending down, and patient has no fever, however patient wound was examined by surgery team and its not progressing well and recommending surgical intervention possible amputation, wound will be evaluated by Dr. Huerta and further recommendation to follow. patient creatinine has improved 1.0 today from 1.7 on 09/01, patient had being hydrated, patient blood sugars close to 200 to 300 increased lantus to 20 BID from 25u daily today blood sugars are running close to 200, will continue to monitor, patient is sitting in the chair and states the pain in her left lower extremity is better denies any fever or chills, patient was seen by surgery team and wound may need further debridement or possibly amputation patient be seen surgeon and further recommendation to follow (2) Diabetic foot ulcer: Qualifiers: Diabetic foot ulcer location: heel Diabetes mellitus type: type 2 Laterality: left Non-pressure ulcer stage: with necrosis of muscle Qualified Code(s): E11.621 - Type 2 diabetes mellitus with foot ulcer; 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 (3) Infected stasis ulcer of left lower extremity: Code(s): I83.229 - Varicose veins of left lower extremity with both ulcer of unspecified site and inflammation; L97.929 - Non-pressure chronic ulcer of unspecified part of left lower leg with unspecified severity Status: Acute Assessment and Plan: Bc are positive for group b strep, continue IV PRIMAXIN, continue to monitor WCC (4) Absent pedal pulses: Code(s): R09.89 - Other specified symptoms and signs involving the circulatory and respiratory systems Status: Acute Assessment and Plan:
[2020-09-20 12:07] LABS: Glucose Point of Care 199 (65-105)
--- NOTE | 2020-09-20 13:26 | ECG_ITS ---
Measurements Intervals Tower Rate: 73 P: 56 WY: 166 QRS: 3 QRSD: 91 T: 97 QT: 344 QTc: 381 Interpretive Statements SINUS RHYTHM LOW QRS VOLTAGE IN PRECORDIAL LEADS CONSIDER ANTERIOR INFARCT, AGE INDETERMINATE ST-T WAVE ABNORMALITY IN HIGH LATERAL LEADS- CONSIDER ISCHEMIA BASELINE ARTIFACT- V2, V5-V6 ABNORMAL ECG Electronically Signed On 09-20-2020 15:58:07 WEBSITE DEVELOPER by Stephen Peralta D.O.
[2020-09-20 14:00] VITALS: BP 116/41; PULSE 73; RESP 16; TEMP 36.2; O2SAT 97
[2020-09-20 16:33] LABS: Glucose Point of Care 192 (65-105)
[2020-09-20 18:29] LABS: Vancomycin Trough 12.7 ug/mL (10.0-20.0)
[2020-09-20 20:00] VITALS: PULSE 75; RESP 20; O2SAT 95
[2020-09-20] MEDS: MIRTAZAPINE 15 MG TABLET PO (20:50)
[2020-09-20 22:00] VITALS: BP 144/52; PULSE 75; RESP 20; TEMP 36.4; O2SAT 95
[2020-09-20 22:19] LABS: Glucose Point of Care 240 (65-105)
[2020-09-21] VITALS (7 sets, daily range): BP systolic 124–137; BP diastolic 42–51; PULSE 69–87; RESP 20–23; TEMP 36.3–36.8; O2SAT 92–98; BMI 10.0
[2020-09-21 05:42] LABS: Hematocrit 30.7 % (37.0-47.0); Hemoglobin 9.1 g/dL (12.0-15.0); Mean Corpuscular HGB Conc 29.6 g/dl (32-36); Mean Corpuscular Hemoglobin 26.9 pg (26-34); Mean Corpuscular Volume 90.8 fl (80-100); Platelet Count Result 355 k/mm3 (150-375); Red Blood Count 3.38 M/mm3 (4.2-5.4); Red Cell Distribution Width 15.7 % (11.5-14.5); White Blood Count 13.3 K/mm3 (4.5-10.0)
[2020-09-21 05:50] LABS: INR 1.1; Prothrombin Time 14.9 Seconds (11.1-14.7)
[2020-09-21 05:51] LABS: Partial Thromboplastin Time 36.2 SECONDS (22.3-36.8)
[2020-09-21 06:00] LABS: Anion Gap 3 mmol/L (8-16); Blood Urea Nitrogen 22 mg/dL (7-17); Calcium 8.5 mg/dL (8.4-10.2); Carbon Dioxide 29 mmol/L (22-30); Chloride 107 mmol/L (98-107); Estimated CRCL calculation 49 ml/min; Estimated Glomerular Filt Rate > 60; Glucose 203 mg/dL (65-105); Potassium 4.6 mmol/L (3.4-5.0); Sodium 139 mmol/L (137-145)
[2020-09-21 07:45] LABS: Glucose Point of Care 192 (65-105)
[2020-09-21] MEDS: INSULIN ASPART (*BKC) 100 UNITS/ML SUB-Q ×4 (09:03→17:33)
[2020-09-21] MEDS: INSULIN GLARGINE (*BKC) 100 UNITS/ML 20 UNITS SUB-Q ×2 (09:04→20:04)
[2020-09-21] MEDS: ATORVASTATIN 40 MG TABLET PO (09:09)
[2020-09-21] MEDS: GABAPENTIN 400 MG CAPSULE PO ×2 (09:10→17:35)
[2020-09-21] MEDS: ENOXAPARIN 40 MG/0.4 ML SYRINGE SUB-Q (09:10)
[2020-09-21] MEDS: DOCUSATE SODIUM 100 MG CAPSULE PO ×2 (09:10→17:35)
[2020-09-21] MEDS: SOD HYPOCHLORITE 1/4 STRENGTH 473 ML 1 APPLIC TOPICAL ×2 (09:10→20:09)
[2020-09-21] MEDS: lisinopriL 2.5 MG TABLET PO (09:10)
[2020-09-21] MEDS: carvediloL 12.5 MG TABLET PO ×2 (09:10→20:05)
[2020-09-21] MEDS: FUROSEMIDE INJ 40 MG/4 ML VIAL IV PUSH (09:10)
[2020-09-21] MEDS: TOLNAFTATE 1% POWDER 45 GM BTL 1 APPLIC TOPICAL ×2 (09:11→20:09)
[2020-09-21 12:45] LABS: Glucose Point of Care 173 (65-105)
--- NOTE | 2020-09-21 14:11 | P.PNIM_ITS ---
Progress Note: A&P Assessment and Plan (1) Uncontrolled diabetes mellitus: Qualifiers: Diabetes mellitus type: type 2 Glycemic state: with hyperglycemia Qualified Code(s): E11.65 - Type 2 diabetes mellitus with hyperglycemia Code(s): E11.65 - Type 2 diabetes mellitus with hyperglycemia Status: Acute Assessment and Plan: ACCUCHECKS< SSI< DM EDUCATOR< DM DIET< HBaic is 10, i will increase her dose of lantus fo tomorrow. Long discussion on better DM control at home 09/21/20 14:11 Patient is 80-year-old female with history of uncontrolled diabetes with a hemoglobin A1c of 10 presented emergency department with a complaint pain swelling and redness to her left lower extremity, patient was seen by an orthopedic surgeon on 09/14 and was taken to OR and had excisional debridement left diabetic foot ulcer including bone, wound culture is growing group B Streptococcus patient is being treated with imipenem and vancomycin will follow- up sensitivity, wound culture is pending, today patient states feeling better the pain is controlled, denies any fever or chills, currently patient is sitting in the chair, left lower extremity in the wound dressing, patient seen by her surgeon today and doing well postop. on 09/16 patient creatinine was significantly elevated, patient stated she has been hydrating herself and urinating as well, to further evaluate did the kidney ultrasound which is normal without any hydronephrosis, started the patient on on IV hydration, patient's wound and blood culture is growing group B strep, and wound culture is growing staph aureus patient is being treated with imipenem, will follow up on sensitivity, since patient is treated with antibiotic risk of endocarditis is very low, will continue to monitor, today 09/21 wound culture is growing MRSA and wound and blood culture is growing group B Streptococcus, patient being treated with vancomycin will continue as patient white counts are trending down, and patient has no fever, however patient wound was examined by surgery team and its not progressing well and recommending surgical intervention possible amputation, wound will be evaluated by Dr. Huerta and further recommendation to follow. patient creatinine has improved 0.9 today from 1.7 on 09/01, patient had being hydrated, patient blood sugars close to 200 to 300 increased lantus to 20 BID from 25u daily today blood sugars are running close to 200, will continue to monitor, patient is sitting in the chair and states the pain in her left lower extremity is better denies any fever or chills, patient was seen by surgery team and wound may need further debridement or possibly amputation patient be seen surgeon and further recommendation to follow, for cardiac clearance patient had ECHO showed EF 55-60, CXR showed edema most likely 2/2 to hydration, will give lasix and monitor. patient is clinically stable, waiting to hear from surgery service. 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 (3) Infected stasis ulcer of left lower extremity: Code(s): I83.229 - Varicose veins of left lower extremity with both ulcer of unspecified site and inflammation;
--- NOTE | 2020-09-21 14:20 | WPDANESEPP ---
Anes - Eval Pre Procedure Procedure: Operation Date: 09/14/20 15:00 Proposed Procedures p Incision And Drainage Left Diabetic Foot Ulcer - Alexy Huerta MD Operation Date: 09/22/20 14:30 Proposed Procedures p Left Below Knee Amputation With Cast - Alexy Huerta MD Date/Time: 09/21/20 14:20 Pre Op Diagnosis: diabetic foot wound with infection Patient Data Age: 80 Gender: F Height: 1.55 m Weight: 98.7 kg Last Vital Signs Temp 36.3 C L 09/21/20 05:13 Pulse 78 09/21/20 09:10 Resp 20 09/21/20 05:13 BP 137/51 L 09/21/20 05:13 Pulse Ox 97 09/21/20 08:54 Allergies Allergy/AdvReac Type Severity Reaction Status Date / Time No Known Allergies Allergy Verified 09/13/20 01:03 Home Medications Medication Instructions Recorded Confirmed Type atorvastatin [Lipitor] 40 mg PO DAILY 09/13/20 09/13/20 History carvedilol [Coreg] 12.5 mg PO BID 09/13/20 09/13/20 History gabapentin 400 mg PO BID 09/13/20 09/13/20 History insulin glargine [Lantus U-100 42 unit SUBCUT BID 09/13/20 09/13/20 History Insulin] lisinopril [Zestril] 2.5 mg PO DAILY 09/13/20 09/13/20 History mirtazapine [Remeron] 15 mg PO HS 09/13/20 09/13/20 History Laboratory Tests 09/20/20 09/20/20 09/20/20 16:26 17:09 20:49 WBC RBC Hgb Hct MCV MCH MCHC RDW Plt Count MPV PT INR APTT Sodium Potassium Chloride Carbon Dioxide Anion Gap BUN Creatinine Estim Creat Clear Calc Estimated GFR Glucose POC Capillary Glucose 192 mg/dl H mg/dl 240 mg/dl H mg/dl (65-105) (65-105) Calcium Vancomycin Trough 12.7 ug/mL ug/mL (10.0-20.0) 09/21/20 09/21/20 09/21/20 05:19 05:19 05:20 WBC 13.3 K/mm3 H K/mm3 (4.5-10.0) RBC 3.38 M/mm3 L M/mm3 (4.2-5.4) Hgb 9.1 g/dL L g/dL (12.0-15.0) Hct 30.7 % L % (37.0-47.0) MCV 90.8 fl fl (80-100) MCH 26.9 pg pg (26-34) MCHC 29.6 g/dl L g/dl (32-36) RDW 15.7 % H % (11.5-14.5) Plt Count 355 k/mm3 k/mm3 (150-375) MPV 11.0 fl H fl (7.4-10.4) PT 14.9 Seconds H Seconds (11.1-14.7) INR 1.1 APTT 36.2 SECONDS SECONDS (22.3-36.8) Sodium 139 mmol/L mmol/L (137-145) Potassium 4.6 mmol/L mmol/L (3.4-5.0) Chloride 107 mmol/L mmol/L (98-107) Carbon Dioxide 29 mmol/L mmol/L (22-30) Anion Gap 3 mmol/L L mmol/L (8-16) BUN 22 mg/dL H mg/dL (7-17) Creatinine 0.90 mg/dL mg/dL (0.7-1.0) Estim Creat Clear Calc 49 ml/min ml/min Estimated GFR > 60 (59 - ) Glucose 203 mg/dL H mg/dL (65-105) POC Capillary Glucose Calcium 8.5 mg/dL mg/dL (8.4-10.2) Vancomycin Trough 09/21/20 09/21/20 07:36 12:43 WBC RBC Hgb Hct MCV MCH MCHC RDW Plt Count MPV PT INR APTT Sodium Potassium Chloride Carbon Dioxide Anion Gap BUN Creatinine Estim Creat Clear Calc Estimated GFR Glucose POC Capillary Glucose 192 mg/dl H mg/dl 173 mg/dl H mg/dl (65-105) (65-105) Calcium Vancomycin Trough ECG: NSR Patient hx anesthesia problems: none Family hx anesthesia problems: none PMFSH Past Medical History Medical History Absent pedal pulses Depression Diabetes type 2, controlled Diabetic foot ulcer High cholesterol Hypertensio
[2020-09-21 16:45] LABS: Glucose Point of Care 240 (65-105)
--- NOTE | 2020-09-21 17:28 | PM.PNORT ---
Progress Note: A&P Assessment and Plan (1) Diabetic foot ulcer: Qualifiers: Diabetic foot ulcer location: heel Diabetes mellitus type: type 2 Laterality: left Non-pressure ulcer stage: with necrosis of muscle Qualified Code(s): E11.621 - Type 2 diabetes mellitus with foot ulcer; L97.423 - Non-pressure chronic ulcer of left heel and midfoot with necrosis of muscle Code(s): E11.621 - Type 2 diabetes mellitus with foot ulcer; L97.509 - Non-pressure chronic ulcer of other part of unspecified foot with unspecified severity Status: Acute Assessment and Plan: One week status post debridement of left foot. Nonhealing state of foot reviewed with patient due to peripheral arterial disease, neuropathy, uncontrolled diabetes. Operative and non operative treatment options with risks and benefits reviewed. Recommend above knee amputation for best chance of healing. Below-knee amputation as 2nd option to allow for possible future weight-bearing with risk of wound healing problems. Non operatively with dressing changes she would be looking at potential further infection, sepsis and other complications up to and including . Her questions were answered. She has absolutely declined surgical treatment at this time. We discussed the almost certainty of decompensation of the leg without operative intervention. She verbalizes understanding and still declines operative treatment. Plan is for discharge home with home health once medically stable. Plan for daily dressing changes with Dakin's solution. Oral antibiotics. Follow-up in wound clinic. (2) Lower extremity cellulitis: Qualifiers: Laterality: left Qualified Code(s): L03.116 - Cellulitis of left lower limb Code(s): L03.119 - Cellulitis of unspecified part of limb Status: Acute (3) Infected stasis ulcer of left lower extremity: Code(s): I83.229 - Varicose veins of left lower extremity with both ulcer of unspecified site and inflammation; L97.929 - Non-pressure chronic ulcer of unspecified part of left lower leg with unspecified severity Status: Acute Subjective Subjective Date/Time Seen: 09/21/20 15:28 Pt seen and examined. Awake and alert. Responds appropriately. Discussed options for left foot. Exam Const: General: comfortable and no acute distress Resp: Effort & Inspection: normal respiratory effort Cardio: Rate: regular rate Rhythm: regular rhythm GI: Inspection: non-distended GI Palp: Yes Soft to palpation, No Tenderness to palpation present (GI) and No Guarding due to palpation present (GI) Skin: Wounds: wounds noted (see below ) Other: Dressing left foot c/d/i. Left leg proximal to the wound is improved in regards to redness/warmth/swelling. Large wound on the plantar aspect of the left foot with 80% necrosis/sloughing tissue and 20% pink/new granulation. Venous stasis ulcer on the posterior aspect of the left leg as well as medial anterior aspect. New area of necrosis on the plantar aspect of the 5th metatarsal noted as well. Surrounding tissue with redness, warmth. Mild malodor noted. No purulence. Unable to palpate pedal pulses. Insensate. Moderate tenderness with dressing changes in the lower leg, area of venous stasis ulcers. Second and third ray amputations noted. Neuro: Cognition (Neuro): normal cognition Speech: normal speech Extrem: Left lower extremity: foot Details: vascular exam (Unable to palpate a pedal pulse) and motor-sensory exam light-touch abnormal in the great toe, in the 4th digit and in the 5th digit; not in the 2nd digit (absent ) and not in the 3rd digit (absent ); abnormal capillary refill Objective Data Vital Signs Vital Signs: Vital Signs - 24 hr 09/20/20 20:00 09/20/20 22:00 09/21/20 00:37 Temperature 97.5 F L Pulse Rate 75 75 87 Respiratory Rate 20 20 Blood Pressure 144/52 H Pulse Oximetry 95 95 92 09/21/20 05:13 09/21/20 08:54 09/21/20 09:10 Temperat
[2020-09-21] MEDS: MIRTAZAPINE 15 MG TABLET PO (20:05)
[2020-09-21 21:25] LABS: Glucose Point of Care 185 (65-105)
[2020-09-22] VITALS: BP 129/66; PULSE 71; RESP 24; TEMP 36.6; O2SAT 93
[2020-09-22 04:00] VITALS: BP 131/42; PULSE 72; RESP 24; TEMP 36.6; O2SAT 98
[2020-09-22 06:52] LABS: Hematocrit 28.8 % (37.0-47.0); Hemoglobin 8.6 g/dL (12.0-15.0); Mean Corpuscular HGB Conc 29.9 g/dl (32-36); Mean Corpuscular Hemoglobin 27.1 pg (26-34); Mean Corpuscular Volume 90.9 fl (80-100); Mean Platelet Volume 10.6 fl (7.4-10.4); Platelet Count Result 367 k/mm3 (150-375); Red Blood Count 3.17 M/mm3 (4.2-5.4); Red Cell Distribution Width 15.7 % (11.5-14.5); White Blood Count 12.9 K/mm3 (4.5-10.0)
[2020-09-22 07:02] LABS: Anion Gap 2 mmol/L (8-16); Blood Urea Nitrogen 16 mg/dL (7-17); Calcium 8.1 mg/dL (8.4-10.2); Carbon Dioxide 32 mmol/L (22-30); Chloride 104 mmol/L (98-107); Estimated CRCL calculation 54 ml/min; Estimated Glomerular Filt Rate > 60; Glucose 140 mg/dL (65-105); Potassium 4.3 mmol/L (3.4-5.0); Sodium 138 mmol/L (137-145)
[2020-09-22 07:41] LABS: Vancomycin Trough 32.6 ug/mL (10.0-20.0)
[2020-09-22 08:03] LABS: Glucose Point of Care 122 (65-105)
[2020-09-22 08:45] VITALS: PULSE 69
[2020-09-22] MEDS: GABAPENTIN 400 MG CAPSULE PO (08:45)
[2020-09-22] MEDS: carvediloL 12.5 MG TABLET PO (08:45)
[2020-09-22] MEDS: ATORVASTATIN 40 MG TABLET PO (08:47)
[2020-09-22] MEDS: DOCUSATE SODIUM 100 MG CAPSULE PO (08:47)
[2020-09-22] MEDS: ENOXAPARIN 40 MG/0.4 ML SYRINGE SUB-Q (08:47)
[2020-09-22] MEDS: FUROSEMIDE INJ 40 MG/4 ML VIAL IV PUSH (08:47)
[2020-09-22] MEDS: lisinopriL 2.5 MG TABLET PO (08:47)
[2020-09-22] MEDS: TOLNAFTATE 1% POWDER 45 GM BTL 1 APPLIC TOPICAL (08:47)
[2020-09-22] MEDS: INSULIN ASPART (*BKC) 100 UNITS/ML SUB-Q (08:47)
[2020-09-22] MEDS: SOD HYPOCHLORITE 1/4 STRENGTH 473 ML 1 APPLIC TOPICAL (08:48)
[2020-09-22] MEDS: INSULIN GLARGINE (*BKC) 100 UNITS/ML 20 UNITS SUB-Q (08:49)
--- NOTE | 2020-09-22 08:57 | PCNWS ---
Weekly nutritional screen. Patient is tolerating current diet with adequate intake of 75-100% of meals. No weight loss reported. Patient has been educated on diabetic diet. No further nutritional needs at this time.
--- NOTE | 2020-09-22 09:38 | PM.PNORT ---
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 She verbalized understanding risks of further infection, sepsis and other complications up to and including . She would like to be discharged. At this time she is being discharged to a nursing home facility. We will plan for daily dressing changes with the Dakin solutions. She will continue oral antibiotics. We will plan for a followup in the [place] wound clinic in 2 weeks for reassessment discuss in of surgical intervention at that time. (2) Lower extremity cellulitis: Qualifiers: Laterality: left Qualified Code(s): L03.116 - Cellulitis of left lower limb Code(s): L03.119 - Cellulitis of unspecified part of limb Status: Acute Assessment and Plan: Continue oral antibiotics. (3) Infected stasis ulcer of left lower extremity: Code(s): I83.229 - Varicose veins of left lower extremity with both ulcer of unspecified site and inflammation; L97.929 - Non-pressure chronic ulcer of unspecified part of left lower leg with unspecified severity Status: Acute Subjective Subjective Date/Time Seen: 09/22/20 0840 No new complaints. Refusing suggested surgical intervention. States I decided I want to go home and think on it longer . Review of Systems Constitutional: Constitutional: Reports as per HPI, Denies chills, Denies fatigue, Denies fever(s) and Denies weakness Cardiovascular: Cardiovascular: Denies chest pain, Reports pedal edema, Reports leg edema and Denies lightheadedness Respiratory: Respiratory: Denies cough and Denies dyspnea Gastrointestinal: Gastrointestinal: Denies abdominal pain, Denies diarrhea and Denies vomiting Genitourinary: Genitourinary: Reports no additional female genitourinary complaints Musculoskeletal: Musculoskeletal: Reports other (left foot wound ) Exam Const: General: comfortable and no acute distress Resp: Effort & Inspection: normal respiratory effort Cardio: Rate: regular rate Rhythm: regular rhythm GI: Inspection: non-distended GI Palp: Yes Soft to palpation, No Tenderness to palpation present (GI) and No Guarding due to palpation present (GI) Skin: Wounds: wounds noted (see below ) Other: Dressing left foot c/d/i. Left leg proximal to the wound is improved in regards to redness/warmth/swelling. Large wound on the plantar aspect of the left foot with 80% necrosis/sloughing tissue and 20% pink/new granulation. Venous stasis ulcer on the posterior aspect of the left leg as well as medial anterior aspect. New area of necrosis on the plantar aspect of the 5th metatarsal noted as well. Surrounding tissue with redness, warmth. Mild malodor noted. No purulence. Unable to palpate pedal pulses. Insensate. Moderate tenderness with dressing changes in the lower leg, area of venous stasis ulcers. Second and third ray amputations noted. Neuro: Cognition (Neuro): normal cognition Speech: normal speech Extrem: Left lower extremity: foot Details: vascular exam (Unable to palpate a pedal pulse) and motor-sensory exam light-touch abnormal in the great toe, in the 4th digit and in the 5th digit; not in the 2nd digit (absent ) and not in the 3rd digit (absent ); abnormal capillary refill Objective D
--- NOTE | 2020-09-22 10:14 | PM.DS ---
DS: Admitting Diagnosis Admitting Diagnosis Admitting Diagnosis: diabetic foot wound with infection DS: Discharge Diagnosis Discharge Diagnosis (1) Uncontrolled diabetes mellitus: Qualifiers: Diabetes mellitus type: type 2 Glycemic state: with hyperglycemia Qualified Code(s): E11.65 - Type 2 diabetes mellitus with hyperglycemia Code(s): E11.65 - Type 2 diabetes mellitus with hyperglycemia Status: Acute Assessment and Plan: ACCUCHECKS< SSI< DM EDUCATOR< DM DIET< HBaic is 10, i will increase her dose of lantus fo tomorrow. Long discussion on better DM control at home 09/21/20 14:11 Patient is 80-year-old female with history of uncontrolled diabetes with a hemoglobin A1c of 10 presented emergency department with a complaint pain swelling and redness to her left lower extremity, patient was seen by an orthopedic surgeon on 09/14 and was taken to OR and had excisional debridement left diabetic foot ulcer including bone, wound culture is growing group B Streptococcus patient is being treated with imipenem and vancomycin will follow-up sensitivity, wound culture is pending, today patient states feeling better the pain is controlled, denies any fever or chills, currently patient is sitting in the chair, left lower extremity in the wound dressing, patient seen by her surgeon today and doing well postop. on 09/16 patient creatinine was significantly elevated, patient stated she has been hydrating herself and urinating as well, to further evaluate did the kidney ultrasound which is normal without any hydronephrosis, started the patient on on IV hydration, patient's wound and blood culture is growing group B strep, and wound culture is growing staph aureus patient is being treated with imipenem, will follow up on sensitivity, since patient is treated with antibiotic risk of endocarditis is very low, will continue to monitor, today 09/21 wound culture is growing MRSA and wound and blood culture is growing group B Streptococcus, patient being treated with vancomycin will continue as patient white counts are trending down, and patient has no fever, however patient wound was examined by surgery team and its not progressing well and recommending surgical intervention possible amputation, wound will be evaluated by Dr. Huerta and further recommendation to follow. patient creatinine has improved 0.9 today from 1.7 on 09/01, patient had being hydrated, patient blood sugars close to 200 to 300 increased lantus to 20 BID from 25u daily today blood sugars are running close to 200, will continue to monitor, patient is sitting in the chair and states the pain in her left lower extremity is better denies any fever or chills, patient was seen by surgery team and wound may need further debridement or possibly amputation patient be seen surgeon and further recommendation to follow, for cardiac clearance patient had ECHO showed EF 55-60, CXR showed edema most likely 2/2 to hydration, will give lasix and monitor. patient is clinically stable, waiting to hear from surgery service. 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 (3) Infected stasis ulcer of left lower extremity: Code(s): I83.229 - Varicose veins of left lower extremity with both ulcer of unspecified site and inflammation; L97.929 - Non-pressure chronic ulcer of unspecified part of left lower leg with unspecified severity
[2020-09-22 11:36] LABS: Glucose Point of Care 98 (65-105)
== END 2020-09-22 14:24 | DRG 629 ==
LOC: ANHED 22:40 → ANH2MED 09-13 03:21
PROVIDERS: Family Medicine; Internal Medicine; Nurse Practitioner Family; Orthopaedic Surgery; Admitting Provider Family Medicine; Emergency Provider Emergency Medicine; PCP Family Medicine; Visit Provider Family Medicine
PROC: 0QBM0ZZ Excision of Left Tarsal, Open Approach (ICD-10-PCS; principal; 2020-09-14 15:00)
DX: E11.621 Type 2 diabetes mellitus with foot ulcer (principal); Z68.41 Body mass index [BMI] 40.0-44.9, adult; I83.225 Varicose veins of left lower extremity with both ulcer other part of foot and inflammation; L03.116 Cellulitis of left lower limb; L97.529 Non-pressure chronic ulcer of other part of left foot with unspecified severity; B95.1 Streptococcus, group B, as the cause of diseases classified elsewhere; B95.62 Methicillin resistant Staphylococcus aureus infection as the cause of diseases classified elsewhere; Z20.828 Contact with and (suspected) exposure to other viral communicable diseases; E11.65 Type 2 diabetes mellitus with hyperglycemia; R09.89 Other specified symptoms and signs involving the circulatory and respiratory systems; E11.42 Type 2 diabetes mellitus with diabetic polyneuropathy; E66.01 Morbid (severe) obesity due to excess calories; Z53.29 Procedure and treatment not carried out because of patient's decision for other reasons; Z89.511 Acquired absence of right leg below knee; Z87.891 Personal history of nicotine dependence
CPT/HCPCS: 36415; 71045; 73630; 76775; 80048; 80202; 83036; 83605; 85025; 85027; 85610; 85652; 85730; 86140; 87040; 87070; 87077; 87147; 87186; 87205; 87635; 93005; 93923; 96365; 97110; 97161; 97165; 97530; 97535; 99285; A9270; C8929; C9803; J0743; J1650; J1815; J1940; J2270; J2405; J2704; J3010; J3370; J7030; J7120; U0003

== ENCOUNTER 2020-09-23 04:25 | Inpatient (IN) | payer OTHER, SELFPAY ==
[2020-09-23] VITALS (16 sets, daily range): BP systolic 133–161; BP diastolic 54–88; PULSE 71–89; RESP 16–22; TEMP 36.1–37.1; O2SAT 90–100; BMI 48.0
--- NOTE | ~2020-09-23 | XR_ITS ---
EXAMINATION: XR chest 1V portable EXAM DATE: 09/23/2020 05:12 INDICATION: Shortness of breath. TECHNIQUE: Portable AP frontal chest x-ray was obtained. Comparison is made to prior examination from 09/20/2020. FINDINGS: There is moderate amount of bilateral indistinct reticulation, likely edema and/or infectio n without confluent consolidation. Mild cardiomegaly. Sternotomy wires are present without findings t o suggest sternal dehiscence. There is no pneumothorax suspected. There are no pleural effusions. The re is aortic arteriosclerosis. There are mild bony degenerative changes. IMPRESSION: Moderate amount of bilateral edema or possibly infection unchanged. Reviewed, dictated and finalized at location A. EN PRESS FEEDER
--- NOTE | ~2020-09-23 | US_ITS ---
EXAMINATION: US renal BI DATE: 10/01/2020 10:05 INDICATION: Acute kidney injury TECHNIQUE: Multiple grayscale and Doppler ultrasound images of the kidneys were obtained. COMPARISON: 09/16/2020 FINDINGS: The right kidney measures 12.3 x 5.5 x 4.9 cm. The left kidney measures 12.5 x 4.5 x 6 cm. The kidneys demonstrate normal parenchymal echogenicity. There is no hydronephrosis. The bladder is c ompletely decompressed. IMPRESSION: 1. Normal kidneys without hydronephrosis. Reviewed, dictated and finalized at location A. RAM MANAGEMENT SPECIALIST
--- NOTE | ~2020-09-23 | CT_ITS ---
EXAMINATION: CTA chest PE protocol EXAM DATE: 10/04/2020 15:07 INDICATION: Elevated D dimer, hypoxia. TECHNIQUE: Spiral CTA of the chest (pulmonary arteries) was performed with 100 cc Omnipaque 350 intr avenous contrast injection. Images were acquired during the pulmonary arterial phase. Coronal maxi mum intensity projection 3D-reconstructions were created by the technologist on dedicated workstation . Axial, coronal and sagittal reformatted images were reviewed. The dose-length product (DLP) for t his examination was 731.28 mGy-cm. The exposure was tailored according to patient size (auto mA exp osure control), and iterative reconstruction (ASIR) was used as additional dose reduction technique. Correlation is made to chest x-ray from 09/23/2020. FINDINGS: The main, central pulmonary arteries are dilated which can indicate elevated pulmonary sachi rial pressure, pulmonary arterial hypertension. There are no pulmonary emboli in the 1st through 3r d order (central and interlobar) pulmonary arteries. Some loss of attenuation in the basilar segment al pulmonary arteries due to respiratory motion, but no intraluminal filling defects suspected. No t horacic aortic dissection. There is multi segmental left lower lobe, and segmental right lower lobe atelectasis. Some interlobul ar septal thickening, could be mild pulmonary edema. There is mild to moderate emphysema. There are small bilateral pleural effusions. Tracheobronchial tree is patent. There is no mediastinal, hilar or axillary lymphadenopathy. There is no pneumothorax. There is cardiomegaly. There are sternot mayank wires, and cardiac/coronary surgical changes. Correlate with prior history. Low-density right ad renal gland 2-3 cm lesion most likely adenoma. There is mild thoracic spondylosis without osteoblast ic or osteolytic lesions identified. IMPRESSION: 1. Mildly dilated pulmonary arteries without emboli suspected. 2. Left basilar multi segmental, right basilar segmental atelectasis. 3. Cardiomegaly, small pleural effusions and possible mild pulmonary edema. CHF? Reviewed, dictated and finalized at location A. TER REPRESENTATIVE IMPRESSION: 1. Mildly dilated pulmonary arteries without emboli suspected. 2. Left basilar multi segmental, right basilar segmental atelectasis. 3. Cardiomegaly, small pleural effusions and possible mild pulmonary edema. CH F?
--- NOTE | 2020-09-23 04:35 | ECG_ITS ---
Measurements Intervals [place] Rate: 91 P: 47 MN: 171 QRS: 7 QRSD: 90 T: 132 QT: 334 QTc: 412 Interpretive Statements SINUS RHYTHM CONSIDER ANTERIOR INFARCT, AGE INDETERMINATE ST-T WAVE ABNORMALITY IN HIGH LATERAL LEADS- CONSIDER ISCHEMIA BASELINE ARTIFACT- I, II, AVR, AVF, V1 ABNORMAL ECG Electronically Signed On 09-23-2020 6:55:17 MEDICAL CLINIC MANAGER by Stephen Peralta D.O.
--- NOTE | 2020-09-23 04:36 | ED.SOB ---
HPI - SOB/Dyspnea General Chief Complaint: Shortness of Breath/Dyspnea Stated Complaint: difficulty breathing History of Present Illness HPI Narrative: 80 yo female brought in by EMS from home for shortness of breath. Sudden onset of SOB this evening. Oxygen saturation in the 80s per EMS. Place on supplemental O2 with rapid improvement. No h/o respiratory issues. Just discharged from the hospital yesterday after being admitted for an infected foot wound. No fever, chills, weakness. Related Data Home Medications Medication Instructions Recorded Confirmed atorvastatin [Lipitor] 40 mg PO DAILY 09/13/20 09/13/20 carvedilol [Coreg] 12.5 mg PO BID 09/13/20 09/13/20 gabapentin 400 mg PO BID 09/13/20 09/13/20 insulin glargine 42 unit SUBCUT BID 09/13/20 09/13/20 lisinopril [Zestril] 2.5 mg PO DAILY 09/13/20 09/13/20 mirtazapine [Remeron] 15 mg PO HS 09/13/20 09/13/20 Allergies Allergy/AdvReac Type Severity Reaction Status Date / Time No Known Allergies Allergy Verified 09/13/20 01:03 Review of Systems Constitutional: Constitutional: Denies fever(s) ENT: Denies dizziness Cardiovascular: Cardiovascular: Denies chest pain Respiratory: Respiratory: Reports dyspnea Gastrointestinal: Gastrointestinal: Denies abdominal pain, Denies nausea and Denies vomiting Neurologic: Denies dizziness and Denies weakness [facility] Past Medical History Medical History Absent pedal pulses Depression Diabetes type 2, controlled Diabetic foot ulcer High cholesterol Hypertension Hypothyroidism Infected stasis ulcer of left lower extremity Lower extremity cellulitis Neuropathy Uncontrolled diabetes mellitus Wound of foot Surgical History Surgical History 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 She does not work. She denies smoking, alcohol or drug use. Smoking packs per day: 0.5 Smoking cigarettes per day: 10.0 Years smoked: 63 Smoking pack-years: 31.50 Smoking status: Former smoker Tobacco type: cigarettes Smoking end date: 08/21/15 Alcohol intake: never Substance use: never Substance use type: does not use Additional living arrangements comments: Two sons Gender identity (if verbalized by the patient): Female Exam Const: General: no acute distress, alert and ill appearing chronically Orientation/consciousness: patient oriented x3 HENMT: Head: normal to inspection Resp: Effort & Inspection: tachypneic Auscultation: crackles Cardio: Rate: regular rate Rhythm: regular rhythm GI: GI Palp: Yes Soft to palpation and No Tenderness to palpation present (GI) Skin: General skin exam: normal color Neuro: General: patient oriented x3 and moves all extremities Speech: normal speech Extrem: General: edema (Bilateral) Course Vital Signs Vital signs: Vital Signs Temperature 37.1 C 09/23/20 04:38 Pulse Rate 89 09/23/20 04:38 Respiratory Rate 21 H 09/23/20 04:38 Blood Pressure 161/70 H 09/23/20 04:38 Pulse Oximetry 98 09/23/20 04:38 Temperature 37.1 C 09/23/20 04:38 Pulse Rate 89 09/23/20 04:38 Respiratory Rate 21 H 09/23/20 04:38 Blood Pressure 161/70 H 09/23/20 04:38 Pulse Oximetry 98 09/23/20 04:38 MDM - SOB/Dyspnea MDM Narrative Medical decision making narrative: Acute
[2020-09-23 05:23] LABS: Hematocrit 35.7 % (37.0-47.0); Hemoglobin 10.6 g/dL (12.0-15.0); Mean Corpuscular HGB Conc 29.7 g/dl (32-36); Mean Corpuscular Hemoglobin 27.2 pg (26-34); Mean Corpuscular Volume 91.8 fl (80-100); Mean Platelet Volume 10.5 fl (7.4-10.4); Platelet Count Result 483 k/mm3 (150-375); Red Blood Count 3.89 M/mm3 (4.2-5.4); Red Cell Distribution Width 15.8 % (11.5-14.5); White Blood Count 20.6 K/mm3 (4.5-10.0)
[2020-09-23 05:36] LABS: INR 1.1; Prothrombin Time 14.6 Seconds (11.1-14.7)
[2020-09-23 05:37] LABS: Partial Thromboplastin Time 32.6 SECONDS (22.3-36.8)
[2020-09-23 05:39] LABS: Anion Gap 4 mmol/L (8-16); Blood Urea Nitrogen 13 mg/dL (7-17); Calcium 8.7 mg/dL (8.4-10.2); Carbon Dioxide 34 mmol/L (22-30); Chloride 104 mmol/L (98-107); Estimated CRCL calculation 60 ml/min; Estimated Glomerular Filt Rate > 60; Glucose 113 mg/dL (65-105); Potassium 4.4 mmol/L (3.4-5.0); Sodium 142 mmol/L (137-145)
[2020-09-23 05:55] LABS: Band Neutrophils Percent 1 % (0-6); Lymphocytes Absolute Manual 2.47 K/mm3 (1.1-4.5); Metamyelocytes Percent 2 %; Monocytes Absolute Manual 0.41 K/mm3 (0.1-0.90); Monocytes Percent Manual 2 % (3-9); Neutrophils Percent Manual 83 % (46-73); Platelet Estimate Adequate (Adequate); Total Cells Counted 100
[2020-09-23 05:56] LABS: Hypochromasia 1+ (NORMAL); Large Platelets Present; Stomatocytes 1+ (NORMAL)
[2020-09-23 05:59] LABS: NT Pro B Type Natriuretic Pept 13100 PG/ML (5-100); Troponin I 0.051 ng/mL (0.000-0.034)
[2020-09-23] MEDS: NITROGLYCERIN OINTMENT 1 INCH DOSE 0.5 INCH TRANSDERM (06:42)
[2020-09-23] MEDS: FUROSEMIDE INJ 40 MG/4 ML VIAL IV PUSH ×3 (06:43→23:14)
[2020-09-23 08:16] LABS: Magnesium 1.9 mg/dL (1.6-2.3)
[2020-09-23 08:42] LABS: D Dimer 3.14 ug/mL (<0.48)
[2020-09-23 09:36] LABS: Add Urine Microscopic? YES; Appearance Urine Cloudy (Clear); Bilirubin Urine Negative (Negative); Blood Urine Negative (Negative); Color Urine Straw (Yellow); Glucose Urine UA Negative (Negative); Ketones Urine Negative (Negative); Leukocyte Esterase Ur 2+ LEU/UL (Negative); Mucus Urine Rare /lpf; Nitrate Urine Negative (Negative); Protein Urine Negative (Negative); RBC Urine 0-2 /hpf (0-2); Specific Grav Ur 1.008 (1.001-1.035); Squamous Epithelial Cell Urine Many /hpf (Few); Urobilinogen Urine Negative mg/dL (<2.0); WBC Clumps Urine Present /HPF; WBC Urine 31-50 /hpf
[2020-09-23 09:44] LABS: Troponin I 0.057 ng/mL (0.000-0.034)
--- NOTE | 2020-09-23 09:49 | ADMGEN ---
This patient, Owen Escobar, was admitted to IMU Room 210-01 on 09-23-2020 at 0730. Patient/family oriented to hospital policies and general routines including ID bracelet, bed and alarms, visiting hours, pain management, procedures, bathroom and other care routines, personal items, smoking policy, room service/diet, and visiting hours. Information on how to activate the Rapid Response Team has been discussed. Patient/Family are encouraged to report perceived risks to care and to ask questions if they do not understand what they are told or what they should do.
[2020-09-23 10:51] LABS: CRP 8.3 mg/dL (<1.0)
[2020-09-23 12:39] LABS: Glucose Point of Care 110 (65-105)
[2020-09-23 12:39] LABS: Glucose Point of Care 155 (65-105)
[2020-09-23] MEDS: SOD HYPOCHLORITE 1/4 STRENGTH 473 ML 1 APPLIC TOPICAL ×2 (14:24→23:18)
[2020-09-23] MEDS: TOLNAFTATE 1% POWDER 45 GM BTL 1 APPLIC TOPICAL ×2 (14:24→23:18)
[2020-09-23 17:11] LABS: Glucose Point of Care 114 (65-105)
--- NOTE | 2020-09-23 17:41 | PM.IMHP ---
H&P: HPI History of Present Illness Date/Time: 09/23/20 17:41 Chief complaint: acute resp failure w hypoxia,chf exacerbation Narrative: Owen Escobar is a 80 year old female patient is known to as discharge her yesterday as patient was admitted with right lower extremity wound and was seen by surgery team recommended amputation of the right lower extremity and patient refused, patient was positive for MRSA and group B strep patient was treated with vancomycin and I discharged her on doxycycline, patient was discharged to senior care apparently upon arrival there at the senior care patient states this she did not like the place and got panic and developed shortness of breath and patient was sent to the emergency department for further evaluation, since patient was short of breath ER suspected patient may have a COVID and being tested an isolated, currently present denies any chest pain shortness of breath palpitation fever or chills, however patient has had several bouts of diarrhea most likely secondary to antibiotic, C diff and stool culture is sent. Patient is being diuresed as chest x-ray showed pulmonary edema, patient also is slightly elevated tropes most likely demand ischemia secondary to shortness of breath unlikely acute coronary syndrome as the tropes are flat, there is no acute changes on EKG. Today patient further states that now she wants to have amputation of her right lower extremity, will consult surgery team further recommendation. 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 She does not work. She denies smoking, alcohol or drug use. Smoking packs per day: 0.5 Smoking cigarettes per day: 10.0 Years smoked: 15 Smoking pack-years: 7.50 Smoking status: Former smoker Tobacco type: cigarettes Smoking end date: 08/21/15 Alcohol intake: never Substance use: never Substance use type: does not use Additional living arrangements comments: Two sons Gender identity (if verbalized by the patient): Female Spiritual care concerns: No Meds Home Medications and Allergies Home Medications Medication Instructions Recorded Confirmed Type atorvastatin [Lipitor] 40 mg PO DAILY 09/13/20 09/23/20 History carvedilol [Coreg] 12.5 mg PO BID 09/13/20 09/23/20 History gabapentin 400 mg PO BID 09/13/20 09/23/20 History lisinopril [Zestril] 2.5 mg PO DAILY 09/13/20 09/23/20 History mirtazapine [Remeron] 15 mg PO HS 09/13/20 09/23/20 History doxycycline hyclate 100 mg PO DAILY #20 tablet 09/22/20 09/23/20 Rx hydrocodone-acetaminophen 1 tab PO Q4H PRN #10 tablet 09/22/20 09/23/20 Rx miconazole nitrate [Aloe [place] 1 applic TOPICAL Q12HR #1692 g 09/22/20 09/23/20 Rx Antifungal (micon)] sodium hypochlorite [[place] 1 applic TOPICAL DAILY #1 ml 09/22/20 09/23/20 Rx Soluti
--- NOTE | 2020-09-23 17:41 | PC.NURSE ---
Patient having copious amounts of projectile stool. Spoke with Dr Vega at 1245 and obtained an order for a fecal containment device after multiple copious bowel movements. The patient's bowel movements significantly slowed after the initial incident. Held order for FCD at this time. is aware and revised order to say 'if copious bowel movements resume, may insert FCD.'
[2020-09-23] MEDS: GABAPENTIN 400 MG CAPSULE PO (18:07)
[2020-09-23 19:10] LABS: SARS-CoV-2 RNA PCR Negative
[2020-09-23 20:13] LABS: Glucose Point of Care 115 (65-105)
--- NOTE | 2020-09-23 21:28 | PC.NURSE ---
This patient, Owen Escobar, was transferred from [210] on 09/23/20 at 2110. Personal belongings sent with patient. Report received from Zelda Cuenca. Appropriate documentation sent with patient.
--- NOTE | 2020-09-23 21:34 | PC.NURSE ---
This patient, Owen Escobar, was transferred to room 259 on 09/23/20 at 2115. Personal belongings sent with patient. Report given to JESSE Friedman. Appropriate documentation sent with patient.
[2020-09-23] MEDS: HEPARIN SODIUM 5,000 UNITS/ML VIAL 5000 UNITS SUB-Q (23:14)
[2020-09-23] MEDS: carvediloL 12.5 MG TABLET PO (23:15)
[2020-09-23] MEDS: MIRTAZAPINE 15 MG TABLET PO (23:15)
[2020-09-23] MEDS: HYDROcodone/acetaminophen (*CRX) 5-325 MG TABLET 1 TAB PO (23:17)
[2020-09-24] VITALS (13 sets, daily range): BP systolic 112–124; BP diastolic 42–65; PULSE 58–80; RESP 16–24; TEMP 36.2–36.7; O2SAT 92–96
--- NOTE | 2020-09-24 | ECHO_ITS ---
Patient Info Name: Owen Escobar Age: 80 years : 1940 Gender: Female Ht: 61 in Wt: 251 lbs BSA: 2.29 m2 HR: 69 bpm BP: 124 / 49 mmHg Technical Quality: Fair Exam Date: 09/24/2020 1:41 PM Exam Location: [facility] Pulmonary Exam Room: 259 Patient Status: Inpatient Admit Date: 09/23/2020 Staff Ordering Physician: Jax Cat MD Trapeze Artist: Mackenzie Remy RDCS Attending Provider: Keyur Pepper MD Exam Type: CA echo dop color flow w con Study Info Indications - NSTEMI Complete two-dimensional, color flow and Doppler transthoracic echocardiogram is performed with contrast to opacify the left ventricle and to improve the deliniation of the left ventricle endocardial borders. Contrast/Agitated Saline Contrast/Ag. Saline: Definity Amount: 1.00 ml Existing IV Access: Yes IV Access Condition: patent with no signs of infiltration Summary 1. Left ventricular systolic function is normal, estimated at 55-60%. 2. There is mildly increased left ventricular wall thickness. 3. The mitral valve has calcified annulus. 4. There is mild mitral valve regurgitation. 5. There is mild to moderate tricuspid valve regurgitation. 6. Moderate pulmonary hypertension, estimated pulmonary arterial systolic pressure is 54 mmHg. Left Ventricle Left ventricular chamber dimension is normal. Left ventricular systolic function is normal, estimated at 55-60%. There is mildly increased left ventricular wall thickness. Left ventricular septal wall motion is normal. The left ventricular diastolic function is normal. Right Ventricle Right ventricular chamber dimension is normal. Right ventricular systolic function is normal. Left Atria Left atrial chamber dimension is normal. Right Atria Right atrial chamber dimension is normal. Aortic Valve The aortic valve is trileaflet. There is no aortic valve sclerosis. There is no aortic valve stenosis. There is no aortic valve regurgitation. Pulmonic Valve The pulmonic valve is normal. There is no pulmonic valve stenosis. There is no pulmonic regurgitation. Mitral Valve The mitral valve has calcified annulus. There is no mitral valve stenosis. There is mild mitral valve regurgitation. Tricuspid Valve The tricuspid valve leaflets are normal. There is no significant tricuspid valve stenosis. There is mild to moderate tricuspid valve regurgitation. Moderate pulmonary hypertension, estimated pulmonary arterial systolic pressure is 54 mmHg. Pericardium/Pleural The pericardium appears normal. There is no pericardial effusion. Inferior Vena Cava Normal inferior vena cava with >50% collapse upon inspiration consistent with normal right atrial pressure, 10 mmHg. Aorta The aortic root size at the sinus of Valsalva is normal. The prox ascending aorta size is normal. Left Ventricular Outflow Tract Name Value Normal LVOT 2D LVOT Diameter 2.05 cm LVOT Doppler LVOT Peak Gradient 4 mmHg LVOT Mean Gradient 3 mmHg LVOT VTI
[2020-09-24 05:38] LABS: Hematocrit 29.5 % (37.0-47.0); Hemoglobin 8.8 g/dL (12.0-15.0); Mean Corpuscular HGB Conc 29.8 g/dl (32-36); Mean Corpuscular Hemoglobin 27.6 pg (26-34); Mean Corpuscular Volume 92.5 fl (80-100); Mean Platelet Volume 10.4 fl (7.4-10.4); Platelet Count Result 378 k/mm3 (150-375); Red Blood Count 3.19 M/mm3 (4.2-5.4); Red Cell Distribution Width 15.6 % (11.5-14.5); White Blood Count 12.4 K/mm3 (4.5-10.0)
[2020-09-24 06:04] LABS: Potassium 3.3 mmol/L (3.4-5.0)
[2020-09-24 06:27] LABS: Alanine Aminotransferase 14 U/L (4-35); Albumin Level 2.4 g/dL (3.5-5.1); Alkaline Phosphatase 381 U/L (38-126); Aspartate Amino Transferase 28 U/L (14-36); Bilirubin,Total 0.4 mg/dL (0.2-1.3); Blood Urea Nitrogen 15 mg/dL (7-17); Calcium 7.9 mg/dL (8.4-10.2); Carbon Dioxide > 40 mmol/L (22-30); Chloride 98 mmol/L (98-107); Estimated CRCL calculation 57 ml/min; Estimated Glomerular Filt Rate > 60; Glucose 55 mg/dL (65-105); Sodium 141 mmol/L (137-145)
[2020-09-24] MEDS: GLUCOSE ORAL GEL 15 GM OF GLUCSE IN 37.5 GM TUBE PO ×2 (06:35→06:46)
[2020-09-24 06:38] LABS: Glucose Point of Care 58 (65-105)
[2020-09-24 07:26] LABS: Glucose Point of Care 92 (65-105)
[2020-09-24 07:26] LABS: Glucose Point of Care 69 (65-105)
[2020-09-24 07:26] LABS: Glucose Point of Care 67 (65-105)
[2020-09-24] MEDS: FUROSEMIDE INJ 40 MG/4 ML VIAL IV PUSH ×2 (09:36→21:13)
[2020-09-24] MEDS: lisinopriL 2.5 MG TABLET PO (09:36)
[2020-09-24] MEDS: ATORVASTATIN 40 MG TABLET PO (09:36)
[2020-09-24] MEDS: GABAPENTIN 400 MG CAPSULE PO ×2 (09:36→16:20)
[2020-09-24] MEDS: carvediloL 12.5 MG TABLET PO ×2 (09:37→21:13)
[2020-09-24] MEDS: HEPARIN SODIUM 5,000 UNITS/ML VIAL 5000 UNITS SUB-Q (09:37)
[2020-09-24] MEDS: SOD HYPOCHLORITE 1/4 STRENGTH 473 ML 1 APPLIC TOPICAL ×2 (10:24→21:15)
[2020-09-24] MEDS: TOLNAFTATE 1% POWDER 45 GM BTL 1 APPLIC TOPICAL ×2 (10:24→21:15)
--- NOTE | 2020-09-24 10:53 | PM.IMPN ---
Progress Note: A&P Assessment and Plan (1) Acute respiratory failure with hypoxia: Code(s): J96.01 - Acute respiratory failure with hypoxia Status: Acute Assessment and Plan: Owen Escobar is a 80 year old female patient is known to as discharge her yesterday as patient was admitted with right lower extremity wound and was seen by surgery team recommended amputation of the right lower extremity and patient refused, patient was positive for MRSA and group B strep patient was treated with vancomycin and I discharged her on doxycycline, patient was discharged to [facility]dc apparently upon arrival there at the fdc patient states this she did not like the place and got panic and developed shortness of breath and patient was sent to the emergency department for further evaluation, since patient was short of breath ER suspected patient may have a COVID and being tested an isolated, currently present denies any chest pain shortness of breath palpitation fever or chills, however patient has had several bouts of diarrhea most likely secondary to antibiotic, C diff and stool culture is sent. Patient is being diuresed as chest x-ray showed pulmonary edema, patient also is slightly elevated tropes most likely demand ischemia secondary to shortness of breath unlikely acute coronary syndrome as the tropes are flat, there is no acute changes on EKG. Today patient further states that now she wants to have amputation of her right lower extremity, will consult surgery team further recommendation. (2) CHF exacerbation: Code(s): I50.9 - Heart failure, unspecified Status: Acute Assessment and Plan: Patient not echo showed mild systolic dysfunction most likely patient has mild acute chronic systolic dysfunction (3) Elevated troponin: Code(s): R77.8 - Other specified abnormalities of plasma proteins Status: Acute Assessment and Plan: Tropes are mildly elevated and flat unlikely acute coronary syndrome most likely stress ischemia due to shortness of breath (4) Infected stasis ulcer of left lower extremity: Code(s): I83.229 - Varicose veins of left lower extremity with both ulcer of unspecified site and inflammation; L97.929 - Non-pressure chronic ulcer of unspecified part of left lower leg with unspecified severity Status: Acute Assessment and Plan: Patient wound culture showed MRSA and blood culture showed group strep patient was treated with vancomycin. Will get ID consult. (5) Uncontrolled diabetes mellitus: Qualifiers: Diabetes mellitus type: type 2 Glycemic state: with hyperglycemia Qualified Code(s): E11.65 - Type 2 diabetes mellitus with hyperglycemia Code(s): E11.65 - Type 2 diabetes mellitus with hyperglycemia Status: Acute Assessment and Plan: Will resume home medication (6) Hypokalemia: Code(s): E87.6 - Hypokalemia Status: Acute Assessment and Plan: Will replace and monitor (7) Anemia of other chronic disease: Code(s): D63.8 - Anemia in other chronic diseases classified elsewhere Status: Acute Assessment and Plan: On Protonix, will monitor. Subjective Date/time seen: 09/24/20 10:53 Interval history: Patient is seen during the morning rounds today, no new complaints, decreased sob, no chest pain, mood stable. 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
[2020-09-24] MEDS: PANTOPRAZOLE SODIUM IV 40 MG VIAL IV PUSH (11:33)
[2020-09-24] MEDS: POTASSIUM CHLORIDE 20 MEQ TABLET 40 MEQ PO (11:33)
[2020-09-24 12:29] LABS: Hematocrit 35.4 % (37.0-47.0); Hemoglobin 10.5 g/dL (12.0-15.0); Mean Corpuscular HGB Conc 29.7 g/dl (32-36); Mean Corpuscular Hemoglobin 27.4 pg (26-34); Mean Corpuscular Volume 92.4 fl (80-100); Platelet Count Result 404 k/mm3 (150-375); Red Blood Count 3.83 M/mm3 (4.2-5.4); Red Cell Distribution Width 15.9 % (11.5-14.5); White Blood Count 12.8 K/mm3 (4.5-10.0)
--- NOTE | 2020-09-24 12:52 | PM.CNCAR ---
Assessment and Plan Assessment and plan (1) NSTEMI (non-ST elevated myocardial infarction): Code(s): I21.4 - Non-ST elevation (NSTEMI) myocardial infarction Status: Acute Assessment and Plan: Will start on heparin, aspirin, check echocardiogram (2) Acute respiratory failure with hypoxia: Code(s): J96.01 - Acute respiratory failure with hypoxia Status: Acute (3) CHF exacerbation: Code(s): I50.9 - Heart failure, unspecified Status: Acute Assessment and Plan: Will obtain echocardiogram to evaluate current status of ventricular systolic function (4) Elevated troponin: Code(s): R77.8 - Other specified abnormalities of plasma proteins Status: Acute (5) Infected stasis ulcer of left lower extremity: Code(s): I83.229 - Varicose veins of left lower extremity with both ulcer of unspecified site and inflammation; L97.929 - Non-pressure chronic ulcer of unspecified part of left lower leg with unspecified severity Status: Acute (6) Peripheral vascular disease: Code(s): I73.9 - Peripheral vascular disease, unspecified Status: Acute Additional Plan Thank you for allowing me to participate in this patient's care, I will be following up with you. Please do not hesitate to call me for any other inquiry History of Present Illness History of Present Illness Consult date/time: 09/24/20 12:52 80 years old lady with history of diabetes mellitus, history of coronary artery disease status post coronary bypass surgery, was readmitted to the hospital because of worsening shortness of breath. Apparently she was in the hospital he was shortness of breath and noted to have nonhealing ulcer of the left leg, she was supposed to go for [id number] amputation but she refused that and she went to continue with medical treatment. She was discharged from the hospital to go to [facility], however she starting having abdominal pain and some shortness of breath, upon arrival to the hospital noted to have slight tachycardia but improved subsequently, noted to have slight elevation of troponin. She denies any chest pain which has significant shortness of breath and mild orthopnea. No palpitation no dizziness no syncope. She has [id number] leg swelling and ulcer on the left leg noted at right leg at the previous amputation [id number]. She had history of coronary bypass surgery with them and thoracic aneurysm repair and she had not been followed with any public information director since this was done few years ago Reason For Visit: acute resp failure w hypoxia,chf exacerbation Review of Systems Constitutional: Constitutional: Reports difficulty sleeping and Reports snoring Cardiovascular: Cardiovascular: Denies chest pain, Denies chest pain at rest, Denies syncope, Reports leg ulcers and Reports leg edema Respiratory: Respiratory: Reports as per HPI [facility] Past Medical History Medical History Absent pedal pulses Depression Diabetes type 2, controlled Diabetic foot ulcer High cholesterol Hypertension Hypothyroidism Infected stasis ulcer of left lower extremity Lower extremity cellulitis Neuropathy Uncontrolled diabetes mellitus Wound of foot Surgical History Surgical History 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
[2020-09-24] MEDS: ENOXAPARIN 80 MG/0.8 ML SYRINGE SUB-Q ×2 (14:50→23:37)
[2020-09-24] MEDS: ASPIRIN 325 MG TABLET PO (14:51)
[2020-09-24 15:13] LABS: Glucose Point of Care 132 (65-105)
[2020-09-24 15:18] LABS: Glucose Point of Care 127 (65-105)
[2020-09-24 18:00] LABS: Glucose Point of Care 187 (65-105)
[2020-09-24] MEDS: MIRTAZAPINE 15 MG TABLET PO (21:14)
[2020-09-24 21:27] LABS: Glucose Point of Care 275 (65-105)
[2020-09-24] MEDS: HYDROcodone/acetaminophen (*CRX) 5-325 MG TABLET 1 TAB PO (21:28)
[2020-09-25] VITALS (14 sets, daily range): BP systolic 107–141; BP diastolic 52–65; PULSE 63–81; RESP 16–20; TEMP 36.3–37.1; O2SAT 92–94
[2020-09-25 05:11] LABS: Hematocrit 30.5 % (37.0-47.0); Hemoglobin 8.9 g/dL (12.0-15.0); Mean Corpuscular HGB Conc 29.2 g/dl (32-36); Mean Corpuscular Hemoglobin 27.6 pg (26-34); Mean Corpuscular Volume 94.4 fl (80-100); Mean Platelet Volume 10.1 fl (7.4-10.4); Platelet Count Result 338 k/mm3 (150-375); Red Blood Count 3.23 M/mm3 (4.2-5.4); Red Cell Distribution Width 15.9 % (11.5-14.5); White Blood Count 9.8 K/mm3 (4.5-10.0)
[2020-09-25 05:41] LABS: Alanine Aminotransferase 15 U/L (4-35); Albumin Level 2.6 g/dL (3.5-5.1); Alkaline Phosphatase 395 U/L (38-126); Aspartate Amino Transferase 28 U/L (14-36); Bilirubin,Total 0.4 mg/dL (0.2-1.3); Blood Urea Nitrogen 18 mg/dL (7-17); Calcium 7.7 mg/dL (8.4-10.2); Carbon Dioxide > 40 mmol/L (22-30); Chloride 94 mmol/L (98-107); Estimated CRCL calculation 46 ml/min; Estimated Glomerular Filt Rate 54; Glucose 244 mg/dL (65-105); Potassium 3.8 mmol/L (3.4-5.0); Sodium 140 mmol/L (137-145)
[2020-09-25 08:40] LABS: Glucose Point of Care 212 (65-105)
[2020-09-25] MEDS: ASPIRIN 325 MG TABLET PO (08:44)
[2020-09-25] MEDS: PANTOPRAZOLE SODIUM IV 40 MG VIAL IV PUSH (08:44)
[2020-09-25] MEDS: lisinopriL 2.5 MG TABLET PO (08:44)
[2020-09-25] MEDS: ATORVASTATIN 40 MG TABLET PO (08:44)
[2020-09-25] MEDS: FUROSEMIDE INJ 40 MG/4 ML VIAL IV PUSH ×2 (08:44→22:11)
[2020-09-25] MEDS: carvediloL 12.5 MG TABLET PO ×2 (08:44→22:11)
[2020-09-25] MEDS: GABAPENTIN 400 MG CAPSULE PO ×2 (08:44→17:06)
[2020-09-25] MEDS: INSULIN ASPART (*BKC) 100 UNITS/ML SUB-Q ×3 (08:45→17:06)
--- NOTE | 2020-09-25 09:00 | PM.IMPN ---
Progress Note: A&P Assessment and Plan (1) Acute respiratory failure with hypoxia: Code(s): J96.01 - Acute respiratory failure with hypoxia Status: Acute Assessment and Plan: Owen Escobar is a 80 year old female patient is known to as discharge her yesterday as patient was admitted with right lower extremity wound and was seen by surgery team recommended amputation of the right lower extremity and patient refused, patient was positive for MRSA and group B strep patient was treated with vancomycin and I discharged her on doxycycline, patient was discharged to alf apparently upon arrival there at the alf patient states this she did not like the place and got panic and developed shortness of breath and patient was sent to the emergency department for further evaluation, since patient was short of breath ER suspected patient may have a COVID and being tested an isolated, currently present denies any chest pain shortness of breath palpitation fever or chills, however patient has had several bouts of diarrhea most likely secondary to antibiotic, C diff and stool culture is sent. Patient is being diuresed as chest x-ray showed pulmonary edema, patient also is slightly elevated tropes most likely demand ischemia secondary to shortness of breath unlikely acute coronary syndrome as the tropes are flat, there is no acute changes on EKG. Today patient further states that now she wants to have amputation of her right lower extremity, will consult surgery team further recommendation. (2) CHF exacerbation: Code(s): I50.9 - Heart failure, unspecified Status: Acute Assessment and Plan: Patient not echo showed mild systolic dysfunction most likely patient has mild acute chronic systolic dysfunction (3) Elevated troponin: Code(s): R77.8 - Other specified abnormalities of plasma proteins Status: Acute Assessment and Plan: Tropes are mildly elevated and flat unlikely acute coronary syndrome most likely stress ischemia due to shortness of breath (4) Infected stasis ulcer of left lower extremity: Code(s): I83.229 - Varicose veins of left lower extremity with both ulcer of unspecified site and inflammation; L97.929 - Non-pressure chronic ulcer of unspecified part of left lower leg with unspecified severity Status: Acute Assessment and Plan: Patient wound culture showed MRSA and blood culture showed group strep patient was treated with vancomycin. Will get ID consult. (5) Uncontrolled diabetes mellitus: Qualifiers: Diabetes mellitus type: type 2 Glycemic state: with hyperglycemia Qualified Code(s): E11.65 - Type 2 diabetes mellitus with hyperglycemia Code(s): E11.65 - Type 2 diabetes mellitus with hyperglycemia Status: Acute Assessment and Plan: Will resume home medication (6) Hypokalemia: Code(s): E87.6 - Hypokalemia Status: Acute Assessment and Plan: Will replace and monitor (7) Anemia of other chronic disease: Code(s): D63.8 - Anemia in other chronic diseases classified elsewhere Status: Acute Assessment and Plan: On Protonix, will monitor. (8) NSTEMI (non-ST elevated myocardial infarction): Code(s): I21.4 - Non-ST elevation (NSTEMI) myocardial infarction Status: Acute Assessment and Plan: Continue current treatment Subjective Date/time seen: 09/25/20 09:00 Interval history: Patient is seen during the morning rounds today, no new complaints, decreased sob, no chest pain, mood stable. 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
--- NOTE | 2020-09-25 09:43 | PM.CNOR ---
Assessment and Plan Assessment and plan (1) Osteomyelitis of left foot: Qualifiers: Osteomyelitis type: other acute Qualified Code(s): M86.172 - Other acute osteomyelitis, left ankle and foot Code(s): M86.9 - Osteomyelitis, unspecified Status: Acute Assessment and Plan: Patient returns to the hospital after 24 hours in the care home. Discussed once again the absence of any successful option for salvage of the left foot. Patient has diabetes which lately is under better control but previously was uncontrolled, peripheral arterial disease which is unable to be improved, poor nutrition and congestive heart failure. Discussed options once again for continue dressing changes and intravenous antibiotics, however, will only hold off the inevitable and will not affect healing. Surgical option is amputation which were again recommended as above knee amputation given her vascular status. Patient has declined above knee amputation. Discussed below-knee amputation with attempt at healing with the chance for possible revision if the wound does not heal. Patient did benefit from improved diabetic control and nutrition over the past week prior to proceeding at that time with an amputation. Discussed nonoperative and operative treatment options with the patient. Risks and benefits of each as well as alternatives were reviewed. All of the patient's questions were answered. The risks of surgery reviewed including but not limited to: Neurovascular damage, wound complication, infection, blood clot, pulmonary embolus, stroke, myocardial infarction, and anesthetic risks up to and including . Continued pain and possible dysfunction were explained. Specific risks of the procedure including later recurrence of deformity. No guarantees were offered. If hardware used, discussed risk of failure/ breakage and possible need for removal. If complications occur, the patient understands the need for further treatment, possible further surgery. Patient verbalizes understanding and wishes to proceed. PLAN: Left below-knee amputation Will proceed when patient medically stable. (2) Diabetic foot ulcer: Qualifiers: Diabetic foot ulcer location: heel Diabetes mellitus type: type 2 Laterality: left Non-pressure ulcer stage: with necrosis of muscle Qualified Code(s): E11.621 - Type 2 diabetes mellitus with foot ulcer; L97.423 - Non-pressure chronic ulcer of left heel and midfoot with necrosis of muscle Code(s): E11.621 - Type 2 diabetes mellitus with foot ulcer; L97.509 - Non-pressure chronic ulcer of other part of unspecified foot with unspecified severity Status: Acute (3) Peripheral vascular disease: Code(s): I73.9 - Peripheral vascular disease, unspecified Status: Acute History of Present Illness HPI Consult date: 09/25/20 Requesting physician: Keyur Pepper MD Consult reason: other (Left foot osteomyelitis) Chief complaint: acute resp failure w hypoxia,chf exacerbation Narrative: 80-year-old woman known to service for left foot infection with diabetic foot ulcer and calcaneal osteomyelitis. Severe peripheral arterial disease. Patient status post debridement of left foot. Medical comorbidities +poor arterial flow combination with no chance for salvage of the left foot. Patient previously status post right foot amputation. Discussed amputation on the left side with the patient declined at that time. She was discharged to a care home and returned due to shortness of breath, anxiety and CHF exacerbation. Review of Systems Review of Systems: All systems reviewed & are unremarkable except as noted in HPI and below Constitutional: Constitutional: Reports as per HPI, Denies chills, Denies fever(s) and Denies weakness Eyes: Eyes: Reports no additional eye complaints ENT: Reports system reviewed and no additional complaints, except as documented and Denies neck pain Cardiovascular: Cardi
[2020-09-25] MEDS: TOLNAFTATE 1% POWDER 45 GM BTL 1 APPLIC TOPICAL ×2 (09:47→22:14)
[2020-09-25] MEDS: SOD HYPOCHLORITE 1/4 STRENGTH 473 ML 1 APPLIC TOPICAL ×2 (09:47→22:13)
--- NOTE | 2020-09-25 10:23 | PM.PNCARD ---
Progress Note: A&P Assessment and Plan (1) NSTEMI (non-ST elevated myocardial infarction): Code(s): I21.4 - Non-ST elevation (NSTEMI) myocardial infarction Status: Acute Assessment and Plan: On Lovenox, aspirin, check echocardiogram. Will keep Lovenox for 24 hours more (2) Acute respiratory failure with hypoxia: Code(s): J96.01 - Acute respiratory failure with hypoxia Status: Acute (3) CHF exacerbation: Code(s): I50.9 - Heart failure, unspecified Status: Acute Assessment and Plan: Will obtain echocardiogram to evaluate current status of ventricular systolic function (4) Elevated troponin: Code(s): R77.8 - Other specified abnormalities of plasma proteins Status: Acute (5) Infected stasis ulcer of left lower extremity: Code(s): I83.229 - Varicose veins of left lower extremity with both ulcer of unspecified site and inflammation; L97.929 - Non-pressure chronic ulcer of unspecified part of left lower leg with unspecified severity Status: Acute Assessment and Plan: She may be going for [id number] amputation on the left side, if the echocardiogram showed normal left ventricular systolic function she is okay to go for that. (6) Peripheral vascular disease: Code(s): I73.9 - Peripheral vascular disease, unspecified Status: Acute Additional Plan If echocardiogram showed no significant abnormalities she is okay to go for amputation whenever it is planned Subjective Date/time seen: 09/25/20 10:23 She feels better today, shortness breath is better no chest pain. She is possibly going for left [id number] amputation Exam Narrative: Exam Narrative: Awake alert oriented x3 not in acute distress Neck is supple no obvious JVD, no carotid bruit Chest: She has decreased breathing sound in the bases with bibasilar crackles noted Cardiovascular: Regular rate and rhythm, 2/6 systolic murmur noted left sternal border Abdomen: Soft nontender bowel sounds positive Extremities: Trace edema noted bilaterally, right leg with [id number] amputation, left leg is dressed due to nonhealing ulcer, did not undress it for sterility Objective Data Vital Signs Vital Signs: Vital Signs - 24 hr 09/24/20 12:00 09/24/20 14:00 09/24/20 16:00 Temperature 36.7 C Pulse Rate 73 74 79 Respiratory Rate 18 Blood Pressure 117/65 Pulse Oximetry 92 09/24/20 18:00 09/24/20 20:00 09/24/20 20:18 Temperature 36.3 C L 36.4 C Pulse Rate 78 71 77 Respiratory Rate 24 H 18 Blood Pressure 112/48 L 115/42 L Pulse Oximetry 94 94 09/24/20 21:13 09/25/20 00:00 09/25/20 04:00 Temperature Pulse Rate 80 65 63 Respiratory Rate Blood Pressure Pulse Oximetry 09/25/20 05:50 09/25/20 08:44 Temperature 37.1 C Pulse Rate 77 71 Respiratory Rate 18 Blood Pressure 107/65 Pulse Oximetry 93 Intake/Output Intake/Output: Intake & Output 09/22/20 09/23/20 09/24/20 09/25/20 23:59 23:59 23:59 23:59 Intake Total 540 1205 240 Output Total 3225 1400 900 Balance -2685 -195 -660 Meds/Results Medications: Active Medications Generic Name Dose Route Start Last Admin Trade Name Freq PRN Reason Stop Dose Admin Hydrocodone Bitart/Acetaminophen 1 tab 09/23/20 16:30 09/24/20 21:28 Hydrocodone/Acetaminophen (*Crx) 5-325 Mg Tablet PO 1 tab Q4H PRN Administration Pain Rated 4-6 Aspirin 325 mg 09/24/20 12:50 09/25/20 08:44 Aspirin 325 Mg Tablet PO 325 mg DAILY@0800 NEW Administration Atorvastatin Calcium 40 mg 09/24/20 09:00 09/25/20 08:44 Atorvastatin 40 Mg Tablet PO 40 mg DAILY NEW Administration Carvedilol 12.5 mg 09/23/20 21:00 09/25/20 08:44 Carvedilol 12.5 Mg Tablet PO 12.5 mg Q12HR NEW Administration Dextrose 12.5 gm 09/24/20 06:30 Dextrose 50% 25 Gm/50 Ml Syringe IV PUSH PRN PRN Hypoglycemia Protocol Enoxaparin Sodium 80 mg 09/24/20 12:00 09/24/20 23:37
[2020-09-25 11:55] LABS: Glucose Point of Care 238 (65-105)
[2020-09-25] MEDS: ENOXAPARIN 80 MG/0.8 ML SYRINGE SUB-Q ×2 (12:01→23:48)
--- NOTE | 2020-09-25 16:30 | WPDCN ---
Assessment and Plan Additional Plan 1. Left foot dry gangrene with osteomyelitis of the calcaneal bone. Significant necrosis of the plantar aspect of the foot with palpable calcaneal bone. Suspect this foot is not salvageable. Pre with plan amputation as per orthopedics. Wound is dry and clean at this point. No signs of acute infection. Patient is afebrile with a normal white count. No further antibiotics needed. 2. History of diarrhea within normal white count and no documented fever. Suspect antibiotic associated fever stool for C diff has been requested. 3. Type 2 diabetes recommend good glycemic control. 4. Coronary artery disease currently being followed by Cardiology. 5. CC Dr. Shazia orourke HPI Data of Consult Date/Time: 09/25/20 16:30 Requesting Physician: Keyur Orourke MD Primary Care Provider: Ana Cristina Zarco, Consult Narrative Narrative: Owen Escobar is a 80 year old female significant past medical history for type 2 diabetes, congestive heart failure, coronary artery disease and obesity presented to the emergency room with acute respiratory failure. Patient also has chronic diabetic foot infection of the left lower extremity. Patient states it has been going on for over 2 months. Currently has developed dry gangrene with bone exposure. Apparently patient has been evaluated by Orthopedic surgery and plan for below-knee amputation once patient is clinically stable. Patient is afebrile currently with a normal white count. Patient is currently off antibiotics therapy. Does complain of intermittent episodes of loose stool. No abdominal pain. No nausea no vomiting. Review of Systems Review of Systems: Narrative: All 12 point review of system was negative except what is mentioned in HPI. [facility] Past Medical History Medical History (Updated 09/25/20 @ 09:47 by Alexy Huerta MD) Absent pedal pulses Depression Diabetes type 2, controlled Diabetic foot ulcer High cholesterol Hypertension Hypothyroidism Infected stasis ulcer of left lower extremity Lower extremity cellulitis Neuropathy Osteomyelitis of left foot Uncontrolled diabetes mellitus Wound of foot Surgical History Surgical History 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 2 sons who are intermittently employed. She does not work. She denies smoking, alcohol or drug use. Smoking packs per day: 0.5 Smoking cigarettes per day: 10.0 Years smoked: 15 Smoking pack-years: 7.50 Smoking status: Former smoker Tobacco type: cigarettes Smoking end date: 08/21/15 Alcohol intake: never Substance use: never Substance use type: does not use Additional living arrangements comments: Two sons Gender identity (if verbalized by the patient): Female Spiritual care concerns: No Meds Home Medications and Allergies Home Medications Medication Instructions Recorded Confirmed Type atorvastatin [Lipitor] 40 mg PO DAILY 09/13/20 09/23/20 History carvedilol [Coreg] 12.5 mg PO BID 09/13/20 09/23/20 History gabapentin 400 mg PO BID 09/13/20 09/23/20 History lisinopril [Zestril] 2.5 mg PO DAILY 09/13/20 09/23/20 History mirtazapine [Remeron] 15 mg PO HS 09/13/20 09/23/20 History doxycycline hyclate 100 mg PO DAILY #20 tablet 09/22/20 09/23/20 Rx hydrocodone-acetaminophen 1 tab PO Q4H PRN #10 tablet 09/22/20 09/23/20 Rx miconazole
[2020-09-25 16:59] LABS: Glucose Point of Care 228 (65-105)
[2020-09-25] MEDS: MIRTAZAPINE 15 MG TABLET PO (22:11)
[2020-09-25 23:58] LABS: Glucose Point of Care 336 (65-105)
[2020-09-26] VITALS (16 sets, daily range): BP systolic 117–149; BP diastolic 47–83; PULSE 68–84; RESP 16–21; TEMP 36.2–36.7; O2SAT 91–97
[2020-09-26 05:42] LABS: Hematocrit 32.6 % (37.0-47.0); Hemoglobin 9.5 g/dL (12.0-15.0); Mean Corpuscular HGB Conc 29.1 g/dl (32-36); Mean Corpuscular Hemoglobin 27.1 pg (26-34); Mean Corpuscular Volume 92.9 fl (80-100); Mean Platelet Volume 10.5 fl (7.4-10.4); Platelet Count Result 377 k/mm3 (150-375); Red Blood Count 3.51 M/mm3 (4.2-5.4); Red Cell Distribution Width 16.1 % (11.5-14.5); White Blood Count 10.7 K/mm3 (4.5-10.0)
[2020-09-26 06:14] LABS: Alanine Aminotransferase 16 U/L (4-35); Albumin Level 2.8 g/dL (3.5-5.1); Alkaline Phosphatase 423 U/L (38-126); Aspartate Amino Transferase 26 U/L (14-36); Bilirubin,Total 0.4 mg/dL (0.2-1.3); Blood Urea Nitrogen 21 mg/dL (7-17); Calcium 7.9 mg/dL (8.4-10.2); Carbon Dioxide > 40 mmol/L (22-30); Chloride 93 mmol/L (98-107); Estimated CRCL calculation 39 ml/min; Estimated Glomerular Filt Rate 43; Glucose 415 mg/dL (65-105); Potassium 3.7 mmol/L (3.4-5.0); Sodium 138 mmol/L (137-145)
--- NOTE | 2020-09-26 06:26 | PM.IMPN ---
Progress Note: A&P Assessment and Plan (1) Acute respiratory failure with hypoxia: Code(s): J96.01 - Acute respiratory failure with hypoxia Status: Acute Assessment and Plan: Owen Escobar is a 80 year old female patient is known to as discharge her yesterday as patient was admitted with right lower extremity wound and was seen by surgery team recommended amputation of the right lower extremity and patient refused, patient was positive for MRSA and group B strep patient was treated with vancomycin and I discharged her on doxycycline, patient was [facility] apparently upon arrival there at the prison patient states this she did not like the place and got panic and developed shortness of breath and patient was sent to the emergency department for further evaluation, since patient was short of breath ER suspected patient may have a COVID and being tested an isolated, currently present denies any chest pain shortness of breath palpitation fever or chills, however patient has had several bouts of diarrhea most likely secondary to antibiotic, C diff and stool culture is sent. Patient is being diuresed as chest x-ray showed pulmonary edema, patient also is slightly elevated tropes most likely demand ischemia secondary to shortness of breath unlikely acute coronary syndrome as the tropes are flat, there is no acute changes on EKG. Today patient further states that now she wants to have amputation of her right lower extremity, will consult surgery team further recommendation. (2) CHF exacerbation: Code(s): I50.9 - Heart failure, unspecified Status: Acute Assessment and Plan: Patient not echo showed mild systolic dysfunction most likely patient has mild acute chronic systolic dysfunction (3) Elevated troponin: Code(s): R77.8 - Other specified abnormalities of plasma proteins Status: Acute Assessment and Plan: Tropes are mildly elevated and flat unlikely acute coronary syndrome most likely stress ischemia due to shortness of breath (4) Infected stasis ulcer of left lower extremity: Code(s): I83.229 - Varicose veins of left lower extremity with both ulcer of unspecified site and inflammation; L97.929 - Non-pressure chronic ulcer of unspecified part of left lower leg with unspecified severity Status: Acute Assessment and Plan: Patient wound culture showed MRSA and blood culture showed group strep patient was treated with vancomycin. Will get ID consult. Getting picc line today for iv antibiotics (5) Uncontrolled diabetes mellitus: Qualifiers: Diabetes mellitus type: type 2 Glycemic state: with hyperglycemia Qualified Code(s): E11.65 - Type 2 diabetes mellitus with hyperglycemia Code(s): E11.65 - Type 2 diabetes mellitus with hyperglycemia Status: Acute Assessment and Plan: Will resume home medication Added lantus and sliding Scale insulin (6) Hypokalemia: Code(s): E87.6 - Hypokalemia Status: Acute Assessment and Plan: Will replace and monitor (7) Anemia of other chronic disease: Code(s): D63.8 - Anemia in other chronic diseases classified elsewhere Status: Acute Assessment and Plan: On Protonix, will monitor. Subjective Date/time seen: 09/26/20 06:26 Interval history: Patient is seen during the morning rounds today, no new complaints, decreased sob, no chest pain, mood stable. No new complaints Review of Systems Review of Systems: All systems reviewed & are unremarkable except as noted in HPI and below Exam Narrative: Exam Narrative: All review of systems are negative except as stated in history and physical HEENT:- PERRL Lungs:- Air entry decreased Heart:- S1 S2 rrr Abd:- Soft nontender, bowel sounds present Ext:- Old healing wounds [employer]:- Stable Objective Data Vital Signs Vital Signs: Vital Signs - 24 hr 09/25/20 08:00 09/25/20 08:40 09/25/20 08:44 Tem[place]a
[2020-09-26] MEDS: INSULIN ASPART (*BKC) 100 UNITS/ML SUB-Q ×3 (06:52→18:53)
[2020-09-26 08:23] LABS: Glucose Point of Care 396 (65-105)
--- NOTE | 2020-09-26 09:04 | PM.CNOR ---
History of Present Illness HPI Consult date: 09/26/20 Requesting physician: Kamaljit Vega MD Consult reason: other (Left DFU ) Chief complaint: acute resp failure w hypoxia,chf exacerbation PMFSH Past Medical History Medical History (Updated 09/25/20 @ 09:47 by Alexy Huerta MD) Absent pedal pulses Depression Diabetes type 2, controlled Diabetic foot ulcer High cholesterol Hypertension Hypothyroidism Infected stasis ulcer of left lower extremity Lower extremity cellulitis Neuropathy Osteomyelitis of left foot Uncontrolled diabetes mellitus Wound of foot Surgical History Surgical History 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 2 sons who are intermittently employed. She does not work. She denies smoking, alcohol or drug use. Smoking packs per day: 0.5 Smoking cigarettes per day: 10.0 Years smoked: 15 Smoking pack-years: 7.50 Smoking status: Former smoker Tobacco type: cigarettes Smoking end date: 08/21/15 Alcohol intake: never Substance use: never Substance use type: does not use Additional living arrangements comments: Two sons Gender identity (if verbalized by the patient): Female Spiritual care concerns: No Meds Home Medications and Allergies Home Medications Medication Instructions Recorded Confirmed Type atorvastatin [Lipitor] 40 mg PO DAILY 09/13/20 09/23/20 History carvedilol [Coreg] 12.5 mg PO BID 09/13/20 09/23/20 History gabapentin 400 mg PO BID 09/13/20 09/23/20 History lisinopril [Zestril] 2.5 mg PO DAILY 09/13/20 09/23/20 History mirtazapine [Remeron] 15 mg PO HS 09/13/20 09/23/20 History doxycycline hyclate 100 mg PO DAILY #20 tablet 09/22/20 09/23/20 Rx hydrocodone-acetaminophen 1 tab PO Q4H PRN #10 tablet 09/22/20 09/23/20 Rx miconazole nitrate [Aloe [place] 1 applic TOPICAL Q12HR #1692 g 09/22/20 09/23/20 Rx Antifungal (micon)] sodium hypochlorite [Dakin's 1 applic TOPICAL DAILY #1 ml 09/22/20 09/23/20 Rx Solution] tolnaftate [Antifungal 1 applic TOPICAL DAILY #1 g 09/22/20 09/23/20 Rx (tolnaftate)] insulin glargine [Lantus Solostar 42 unit SUBCUT BID 09/23/20 09/23/20 History U-100 Insulin] Allergies Allergy/AdvReac Type Severity Reaction Status Date / Time No Known Allergies Allergy Verified 09/26/20 04:27 Vital Signs Vital Signs - 24 hr 09/25/20 10:10 09/25/20 12:00 09/25/20 13:47 Temperature 36.4 C 36.3 C L Pulse Rate 70 72 74 Respiratory Rate 20 20 Blood Pressure 116/52 L 119/52 L Pulse Oximetry 94 92 09/25/20 16:00 09/25/20 18:15 09/25/20 20:00 Temperature 36.3 C L Pulse Rate 81 77 75 Respiratory Rate 18 16 Blood Pressure 132/54 L Pulse Oximetry 94 94 09/25/20 22:00 09/25/20 22:11 09/26/20 00:00 Temperature 36.8 C Pulse Rate 76 77 77 Respiratory Rate 16 Blood Pressure 141/57 H Pulse Oximetry 94 09/26/20 02:00 09/26/20 04:00 09/26/20 06:00 Temperature 36.6 C 36.2 C L Pulse Rate 80 84 81 Respiratory Rate 16 16 Blood Pressure 143/54 H 149/71 H Pulse Oximetry 94 94 Results Labs Result Diagrams: 09/26/20 05:23 09/26/20 05:23 Labs: Abnormal lab results 09/25/20 09/25/20 09/25/20 Range/Units 11:45 16:53 23:50 WBC (4.5-10.0) K/mm3 RBC (4.2-5.4) M/mm3 Hgb (12.0-15.0) g/dL Hct (37.0-47.0) % MCHC (32-36)
--- NOTE | 2020-09-26 09:28 | PM.PNORT ---
Progress Note: A&P Assessment and Plan (1) Osteomyelitis of left foot: Qualifiers: Osteomyelitis type: other acute Qualified Code(s): M86.172 - Other acute osteomyelitis, left ankle and foot Code(s): M86.9 - Osteomyelitis, unspecified Status: Acute Assessment and Plan: Continue dressing changes to the LLE with Dakins soaked gauze. Cover Dry. Appreciate ID input. Continue pain control. Elevate LLE on pillows. Stool cultures pending. Resume diet at this time. Will need medical/cardiology clearance and final stool results. PLAN: Left below-knee amputation by Dr. Huerta pending medical and cardiology clearance. 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 (3) Peripheral vascular disease: Code(s): I73.9 - Peripheral vascular disease, unspecified Status: Acute Subjective Subjective Date/Time Seen: 09/26/20 09:28 No new complaints. Ready to move forward with amputation. Feels her breathing has improved. Review of Systems Review of Systems: All systems reviewed & are unremarkable except as noted in HPI and below Exam Const: General: comfortable and no acute distress Resp: Effort & Inspection: normal respiratory effort Cardio: Rate: regular rate Rhythm: regular rhythm GI: Inspection: non-distended GI Palp: Yes Soft to palpation, No Tenderness to palpation present (GI) and No Guarding due to palpation present (GI) Skin: Wounds: wounds noted (see below ) Other: Dressing left foot c/d/i. Left leg proximal to the wound is improved in regards to redness/warmth/swelling. Large wound on the plantar aspect of the left foot with 80% necrosis/sloughing tissue and 20% pink/new granulation. Bone of the calcaneus visible/palpable. Venous stasis ulcer on the posterior aspect of the left leg as well as medial anterior aspect. New area of necrosis on the plantar aspect of the 5th metatarsal noted as well. Surrounding tissue with redness, warmth. Mild malodor noted. No purulence. Unable to palpate pedal pulses. Insensate. Moderate tenderness with dressing changes in the lower leg, area of venous stasis ulcers. Second and third ray amputations noted. Neuro: Cognition (Neuro): normal cognition Speech: normal speech Extrem: Left lower extremity: foot Details: vascular exam (Unable to palpate a pedal pulse) and motor-sensory exam light-touch abnormal in the great toe, in the 4th digit and in the 5th digit; not in the 2nd digit (absent ) and not in the 3rd digit (absent ); abnormal capillary refill Objective Data Vital Signs Vital Signs: Vital Signs - 24 hr 09/25/20 10:10 09/25/20 12:00 09/25/20 13:47 Temperature 36.4 C 36.3 C L Pulse Rate 70 72 74 Respiratory Rate 20 20 Blood Pressure 116/52 L 119/52 L Pulse Oximetry 94 92 09/25/20 16:00 09/25/20 18:15 09/25/20 20:00 Temperature 36.3 C L Pulse Rate 81 77 75 Respiratory Rate 18 16 Blood Pressure 132/54 L Pulse Oximetry 94 94 09/25/20 22:00 09/25/20 22:11 09/26/20 00:00 Temperature 36.8 C Pulse Rate 76 77 77 Respiratory Rate 16 Blood Pressure 141/57 H Pulse Oximetry 94 09/26/20 02:00 09/26/20 04:00 09/26/20 06:00 Temperature 36.6 C 36.2 C L Pulse Rate 80 84 81 Respiratory Rate 16 16 Blood Pressure 143/54 H 149/71 H Pulse Oximetry 94 94 Intake/Output Intake/Output: Intake & Output
[2020-09-26] MEDS: ATORVASTATIN 40 MG TABLET PO (09:57)
[2020-09-26] MEDS: ASPIRIN 325 MG TABLET PO (09:57)
[2020-09-26] MEDS: lisinopriL 2.5 MG TABLET PO (09:58)
[2020-09-26] MEDS: PANTOPRAZOLE SODIUM IV 40 MG VIAL IV PUSH (09:58)
[2020-09-26] MEDS: carvediloL 12.5 MG TABLET PO ×2 (09:58→21:15)
[2020-09-26] MEDS: FUROSEMIDE INJ 40 MG/4 ML VIAL IV PUSH ×2 (09:58→21:16)
[2020-09-26] MEDS: GABAPENTIN 400 MG CAPSULE PO ×2 (09:58→17:35)
[2020-09-26] MEDS: SOD HYPOCHLORITE 1/4 STRENGTH 473 ML 1 APPLIC TOPICAL ×2 (09:59→21:15)
[2020-09-26] MEDS: TOLNAFTATE 1% POWDER 45 GM BTL 1 APPLIC TOPICAL ×2 (09:59→21:15)
[2020-09-26 10:52] LABS: Glucose Point of Care 319 (65-105)
--- NOTE | 2020-09-26 12:15 | PC.NURSE ---
Dr. Martinez here on rounds. Notified him of run of Vtach on telemetry this morning and patient asymptomatic. assessed patient and spoke with her. Patient denies any cardiac symptoms. No new orders received.
--- NOTE | 2020-09-26 14:03 | PM.PNCARD ---
Progress Note: A&P Assessment and Plan (1) NSTEMI (non-ST elevated myocardial infarction): Code(s): I21.4 - Non-ST elevation (NSTEMI) myocardial infarction Status: Acute Assessment and Plan: Okay to stop Lovenox now, continue with aspirin. Echocardiogram showed normal left ventricular systolic function with calcified mitral valve, okay to proceed with amputation surgery if indicated (2) Acute respiratory failure with hypoxia: Code(s): J96.01 - Acute respiratory failure with hypoxia Status: Acute (3) CHF exacerbation: Code(s): I50.9 - Heart failure, unspecified Status: Acute Assessment and Plan: Echo showed normal left ventricular systolic function but with evidence of diastolic dysfunction and pulmonary hypertension (4) Elevated troponin: Code(s): R77.8 - Other specified abnormalities of plasma proteins Status: Acute (5) Infected stasis ulcer of left lower extremity: Code(s): I83.229 - Varicose veins of left lower extremity with both ulcer of unspecified site and inflammation; L97.929 - Non-pressure chronic ulcer of unspecified part of left lower leg with unspecified severity Status: Acute Assessment and Plan: She may be going for [id number] amputation on the left side, if the echocardiogram showed normal left ventricular systolic function she is okay to go for that. (6) Peripheral vascular disease: Code(s): I73.9 - Peripheral vascular disease, unspecified Status: Acute Additional Plan She is okay to go for amputation whenever it is planned Subjective Date/time seen: 09/26/20 14:03 She feels okay today, no chest pain no shortness of breath, noted on the monitor to have 1 episode of nonsustained ventricular tachycardia, was asymptomatic Exam Narrative: Exam Narrative: Awake alert oriented x3 not in acute distress Neck is supple no obvious JVD, no carotid bruit Chest: She has decreased breathing sound in the bases with bibasilar crackles noted Cardiovascular: Regular rate and rhythm, 2/6 systolic murmur noted left sternal border Abdomen: Soft nontender bowel sounds positive Extremities: Trace edema noted bilaterally, right leg with [id number] amputation, left leg is dressed due to nonhealing ulcer, did not undress it for sterility Objective Data Vital Signs Vital Signs: Vital Signs - 24 hr 09/25/20 16:00 09/25/20 18:15 09/25/20 20:00 Temperature 36.3 C L Pulse Rate 81 77 75 Respiratory Rate 18 16 Blood Pressure 132/54 L Pulse Oximetry 94 94 09/25/20 22:00 09/25/20 22:11 09/26/20 00:00 Temperature 36.8 C Pulse Rate 76 77 77 Respiratory Rate 16 Blood Pressure 141/57 H Pulse Oximetry 94 09/26/20 02:00 09/26/20 04:00 09/26/20 06:00 Temperature 36.6 C 36.2 C L Pulse Rate 80 84 81 Respiratory Rate 16 16 Blood Pressure 143/54 H 149/71 H Pulse Oximetry 94 94 09/26/20 08:00 09/26/20 09:00 09/26/20 09:58 Temperature 36.6 C Pulse Rate 74 75 76 Respiratory Rate 21 H Blood Pressure 117/83 Pulse Oximetry 97 09/26/20 11:18 09/26/20 12:00 Temperature Pulse Rate 74 Respiratory Rate Blood Pressure Pulse Oximetry 91 Intake/Output Intake/Output: Intake & Output 09/23/20 09/24/20 09/25/20 09/26/20 23:59 23:59 23:59 23:59 Intake Total 540 1205 1620 950 Output Total 3225 1400 1525 1500 [facility] -2210 -195 95 -550 Meds/Results Medications: Active Medications Generic Name Dose Route Start Last Admin Trade Name Freq PRN Reason Stop Dose Admin Hydrocodone Bitart/Acetaminophen 1 tab 09/23/20 16:30 09/24/20 21:28 Hydrocodone/Acetaminophen (*Crx) 5-325 Mg Tablet PO 1 tab Q4H PRN Administration Pain Rated 4-6 Aspirin 325 mg 09/24/20 12:50 09/26/20 09:57 Aspirin 325 Mg Tablet PO 325 mg DAILY@0800 NEW Administration Atorvastatin Calcium 40 mg 09/24/20 09:00 09/26/20 09:57 Atorvastatin 40 Mg Tablet PO 40 mg DAILY NEW Administr
--- NOTE | 2020-09-26 14:20 | WPDINFPN2 ---
Progress Note: A&P Assessment and Plan (1) Lower extremity cellulitis: Qualifiers: Laterality: left Qualified Code(s): L03.116 - Cellulitis of left lower limb Code(s): L03.119 - Cellulitis of unspecified part of limb Status: Acute Assessment and Plan: 1. Gangrene of Left foot with cellulitis. GBS isolated on recent admission. I do not think that the MRSA is a major pathogen here, and may be a colonizer. 2. Severe ASPVD 3. DM 4. Prior BKA right REC She has not received any antibiotics since the current admission, was on Doxycycline in the interim. Begin Ancef, and plan short term antibiotics post op, unless new developments such as recurrent bacteremia. Subjective Date/time seen: 09/26/20 14:20 Interval history: no diarrhea so far today Exam Narrative: Exam Narrative: afebrile Const: General: no acute distress Resp: Effort & Inspection: normal respiratory effort Auscultation: clear to auscultation bilaterally Cardio: Rate: regular rate Rhythm: regular rhythm Heart sounds: no gallops and no murmurs GI: Inspection: non-distended GI Palp: Yes Soft to palpation, No Tenderness to palpation present (GI) and No Guarding due to palpation present (GI) Skin: General skin exam: normal color and no rashes or lesions noted Extrem: Other: foot just dressed, I discussed appearance with RN Objective Data Vital Signs Vital Signs: Vital Signs - 24 hr 09/25/20 16:00 09/25/20 18:15 09/25/20 20:00 Temperature 36.3 C L Pulse Rate 81 77 75 Respiratory Rate 18 16 Blood Pressure 132/54 L Pulse Oximetry 94 94 09/25/20 22:00 09/25/20 22:11 09/26/20 00:00 Temperature 36.8 C Pulse Rate 76 77 77 Respiratory Rate 16 Blood Pressure 141/57 H Pulse Oximetry 94 09/26/20 02:00 09/26/20 04:00 09/26/20 06:00 Temperature 36.6 C 36.2 C L Pulse Rate 80 84 81 Respiratory Rate 16 16 Blood Pressure 143/54 H 149/71 H Pulse Oximetry 94 94 09/26/20 08:00 09/26/20 09:00 09/26/20 09:58 Temperature 36.6 C Pulse Rate 74 75 76 Respiratory Rate 21 H Blood Pressure 117/83 Pulse Oximetry 97 09/26/20 11:18 09/26/20 12:00 Temperature Pulse Rate 74 Respiratory Rate Blood Pressure Pulse Oximetry 91 Intake/Output Intake/Output: Intake & Output 09/23/20 09/24/20 09/25/20 09/26/20 23:59 23:59 23:59 23:59 Intake Total 540 1205 1620 950 Output Total 3225 1400 1525 1500 Balance -2685 -195 95 -550 Meds/Results Medications: Active Medications Generic Name Dose Route Start Last Admin Trade Name Freq PRN Reason Stop Dose Admin Hydrocodone Bitart/Acetaminophen 1 tab 09/23/20 16:30 09/24/20 21:28 Hydrocodone/Acetaminophen (*Crx) 5-325 Mg Tablet PO 1 tab Q4H PRN Administration Pain Rated 4-6 Aspirin 325 mg 09/24/20 12:50 09/26/20 09:57 Aspirin 325 Mg Tablet PO 325 mg DAILY@0800 NEW Administration Atorvastatin Calcium 40 mg 09/24/20 09:00 09/26/20 09:57 Atorvastatin 40 Mg Tablet PO 40 mg DAILY NEW Administration Carvedilol 12.5 mg 09/23/20 21:00 09/26/20 09:58 Carvedilol 12.5 Mg Tablet PO 12.5 mg Q12HR NEW Administration Dextrose 12.5 gm 09/24/20 06:30 Dextrose 50% 25 Gm/50 Ml Syringe IV PUSH PRN PRN Hypoglycemia Protocol Furosemide 40 mg 09/23/20 09:00 09/26/20 09:58 Furosemide Inj 40 Mg/4 Ml Vial IV PUSH 40 mg Q12HR NEW Administration Gabapentin 400 mg 09/23/20 17:00 09/26/20 09:58 Gabapentin 400 Mg Capsule PO 400 mg BID NEW Administration Glucagon 1 mg 09/24/20 06:30 Glucagon For Inj 1 Mg Vial IM PRN PRN Hypoglycemia Protocol Glucose 15 gm 09/24/20 06:30 09/24/20 06:46 Glucose Oral Gel 15 Gm Of Glucse In 37.5 Gm Tube PO 15 gm PRN PRN Administration Hypoglycemia Protocol Dextrose 1,000 mls @ 100 mls/hr 09/24/20 06:30 Dextrose 5% 1,000 Ml IVPB PRN PRN Hypoglycemia Protocol Cefazolin Sodium 1
[2020-09-26 15:31] LABS: Cholesterol 88 mg/dL (0-200); HDL Direct 21 mg/dL; Magnesium 1.8 mg/dL (1.6-2.3); Triglycerides 161 mg/dL (<150)
[2020-09-26 15:41] LABS: LDL Cholesterol Direct 43 mg/dL
[2020-09-26 17:52] LABS: Glucose Point of Care 389 (65-105)
[2020-09-26] MEDS: MIRTAZAPINE 15 MG TABLET PO (21:15)
[2020-09-26] MEDS: INSULIN GLARGINE (*BKC) 100 UNITS/ML 16 UNITS SUB-Q (21:22)
[2020-09-26 23:00] LABS: Glucose Point of Care 369 (65-105)
[2020-09-27] VITALS (14 sets, daily range): BP systolic 109–144; BP diastolic 40–64; PULSE 62–90; RESP 16–20; TEMP 36.1–36.9; O2SAT 91–97
[2020-09-27 05:29] LABS: Hematocrit 30.8 % (37.0-47.0); Hemoglobin 8.8 g/dL (12.0-15.0); Mean Corpuscular HGB Conc 28.6 g/dl (32-36); Mean Corpuscular Hemoglobin 27.4 pg (26-34); Mean Platelet Volume 10.3 fl (7.4-10.4); Platelet Count Result 315 k/mm3 (150-375); Red Blood Count 3.21 M/mm3 (4.2-5.4); Red Cell Distribution Width 15.9 % (11.5-14.5); White Blood Count 10.1 K/mm3 (4.5-10.0)
[2020-09-27 06:09] LABS: Alanine Aminotransferase 14 U/L (4-35); Albumin Level 2.5 g/dL (3.5-5.1); Alkaline Phosphatase 324 U/L (38-126); Aspartate Amino Transferase 26 U/L (14-36); Bilirubin,Total 0.4 mg/dL (0.2-1.3); Blood Urea Nitrogen 21 mg/dL (7-17); Calcium 7.6 mg/dL (8.4-10.2); Carbon Dioxide > 40 mmol/L (22-30); Chloride 94 mmol/L (98-107); Estimated CRCL calculation 50 ml/min; Estimated Glomerular Filt Rate > 60; Glucose 383 mg/dL (65-105); Potassium 3.4 mmol/L (3.4-5.0); Sodium 138 mmol/L (137-145)
[2020-09-27] MEDS: INSULIN ASPART (*BKC) 100 UNITS/ML SUB-Q ×3 (08:08→17:11)
[2020-09-27 08:12] LABS: Glucose Point of Care 350 (65-105)
[2020-09-27] MEDS: ASPIRIN 325 MG TABLET PO (08:14)
[2020-09-27] MEDS: ATORVASTATIN 40 MG TABLET PO (08:14)
[2020-09-27] MEDS: GABAPENTIN 400 MG CAPSULE PO ×2 (08:15→17:12)
[2020-09-27] MEDS: TOLNAFTATE 1% POWDER 45 GM BTL 1 APPLIC TOPICAL ×2 (08:15→21:17)
[2020-09-27] MEDS: PANTOPRAZOLE SODIUM IV 40 MG VIAL IV PUSH (08:15)
[2020-09-27] MEDS: FUROSEMIDE INJ 40 MG/4 ML VIAL IV PUSH ×2 (08:15→21:17)
[2020-09-27] MEDS: carvediloL 12.5 MG TABLET PO ×2 (08:15→21:17)
[2020-09-27] MEDS: lisinopriL 2.5 MG TABLET PO (08:15)
[2020-09-27] MEDS: SOD HYPOCHLORITE 1/4 STRENGTH 473 ML 1 APPLIC TOPICAL ×2 (08:16→21:16)
--- NOTE | 2020-09-27 11:10 | WPDINFPN2 ---
Progress Note: A&P Assessment and Plan (1) Lower extremity cellulitis: Qualifiers: Laterality: left Qualified Code(s): L03.116 - Cellulitis of left lower limb Code(s): L03.119 - Cellulitis of unspecified part of limb Status: Acute Assessment and Plan: 1. Gangrene of Left foot with cellulitis. GBS isolated on recent admission. I do not think that the MRSA is a major pathogen here, and may be a colonizer. 2. Severe ASPVD 3. DM 4. Prior BKA right 5. Mild leukocytosis, due to gangrene and superinfection, almost back to normal once again REC Ancef #2, continue. Short term antibiotics post op, unless new developments such as recurrent bacteremia. Subjective Date/time seen: 09/27/20 11:10 Interval history: no complaints Exam Narrative: Exam Narrative: afebrile Const: General: no acute distress Resp: Auscultation: clear to auscultation bilaterally Cardio: Rate: regular rate Rhythm: regular rhythm Heart sounds: no gallops and no murmurs GI: Inspection: non-distended GI Palp: Yes Soft to palpation and No Tenderness to palpation present (GI) Urinary Catheter: Urinary Catheter: patent and draining and urine clear Skin: General skin exam: normal color and no rashes or lesions noted Extrem: Other: left foot dressed, no proximal erythema nor tenderness nor crepitus Objective Data Vital Signs Vital Signs: Vital Signs - 24 hr 09/26/20 11:18 09/26/20 12:00 09/26/20 14:00 Temperature 36.2 C L Pulse Rate 74 71 Respiratory Rate 19 Blood Pressure 134/51 L Pulse Oximetry 91 94 09/26/20 16:00 09/26/20 17:00 09/26/20 21:15 Temperature 36.7 C Pulse Rate 71 79 78 Respiratory Rate 21 H Blood Pressure 127/64 Pulse Oximetry 94 09/26/20 21:30 09/26/20 22:00 09/26/20 23:00 Temperature 36.7 C Pulse Rate 70 68 Respiratory Rate 16 Blood Pressure 135/47 L Pulse Oximetry 93 93 09/27/20 00:00 09/27/20 02:00 09/27/20 04:00 Temperature 36.9 C Pulse Rate 69 66 65 Respiratory Rate 16 Blood Pressure 127/50 L Pulse Oximetry 95 09/27/20 06:00 09/27/20 08:15 Temperature 36.2 C L Pulse Rate 70 74 Respiratory Rate 18 Blood Pressure 144/64 H Pulse Oximetry 96 Intake/Output Intake/Output: Intake & Output 09/24/20 09/25/20 09/26/20 09/27/20 23:59 23:59 23:59 23:59 Intake Total 1205 1620 1830 790 Output Total 1400 1525 1750 800 Balance -195 95 80 -10 Meds/Results Medications: Active Medications Generic Name Dose Route Start Last Admin Trade Name Freq PRN Reason Stop Dose Admin Hydrocodone Bitart/Acetaminophen 1 tab 09/23/20 16:30 09/24/20 21:28 Hydrocodone/Acetaminophen (*Crx) 5-325 Mg Tablet PO 1 tab Q4H PRN Administration Pain Rated 4-6 Aspirin 325 mg 09/24/20 12:50 09/27/20 08:14 Aspirin 325 Mg Tablet PO 325 mg DAILY@0800 NEW Administration Atorvastatin Calcium 40 mg 09/24/20 09:00 09/27/20 08:14 Atorvastatin 40 Mg Tablet PO 40 mg DAILY NEW Administration Carvedilol 12.5 mg 09/23/20 21:00 09/27/20 08:15 Carvedilol 12.5 Mg Tablet PO 12.5 mg Q12HR NEW Administration Dextrose 12.5 gm 09/24/20 06:30 Dextrose 50% 25 Gm/50 Ml Syringe IV PUSH PRN PRN Hypoglycemia Protocol Furosemide 40 mg 09/23/20 09:00 09/27/20 08:15 Furosemide Inj 40 Mg/4 Ml Vial IV PUSH 40 mg Q12HR NEW Administration Gabapentin 400 mg 09/23/20 17:00 09/27/20 08:15 Gabapentin 400 Mg Capsule PO 400 mg BID NEW Administration Glucagon 1 mg 09/24/20 06:30 Glucagon For Inj 1 Mg Vial IM PRN PRN Hypoglycemia Protocol Glucose 15 gm 09/24/20 06:30 09/24/20 06:46 Glucose Oral Gel 15 Gm Of Glucse In 37.5 Gm Tube PO 15 gm PRN PRN Administration Hypoglycemia Protocol Dextrose 1,000 mls @ 100 mls/hr 09/24/20 06:30 Dextrose 5% 1,000 Ml IVPB PRN PRN Hypoglycemia Protocol Cefazolin Sodium 1 gm in 50 mls @ 100 mls/hr 12
[2020-09-27 11:31] LABS: Glucose Point of Care 398 (65-105)
--- NOTE | 2020-09-27 11:42 | PM.IMPN ---
Progress Note: A&P Assessment and Plan (1) Acute respiratory failure with hypoxia: Code(s): J96.01 - Acute respiratory failure with hypoxia Status: Acute Assessment and Plan: Pt states she wants to have amputation of her right lower extremity. Hopeful amputation soon. (2) CHF exacerbation: Code(s): I50.9 - Heart failure, unspecified Status: Acute Assessment and Plan: Patient not echo showed mild systolic dysfunction most likely patient has mild acute chronic systolic dysfunction (3) Elevated troponin: Code(s): R77.8 - Other specified abnormalities of plasma proteins Status: Acute Assessment and Plan: Tropes are mildly elevated and flat unlikely acute coronary syndrome most likely stress ischemia due to shortness of breath (4) Infected stasis ulcer of left lower extremity: Code(s): I83.229 - Varicose veins of left lower extremity with both ulcer of unspecified site and inflammation; L97.929 - Non-pressure chronic ulcer of unspecified part of left lower leg with unspecified severity Status: Acute Assessment and Plan: Gangrene of Left foot with cellulitis. GBS isolated recently, DR Tavarez recommends Ancef. (5) Uncontrolled diabetes mellitus: Qualifiers: Diabetes mellitus type: type 2 Glycemic state: with hyperglycemia Qualified Code(s): E11.65 - Type 2 diabetes mellitus with hyperglycemia Code(s): E11.65 - Type 2 diabetes mellitus with hyperglycemia Status: Acute Assessment and Plan: Home regime+ Lantus and sliding Scale insulin (6) Hypokalemia: Code(s): E87.6 - Hypokalemia Status: Acute Assessment and Plan: Order BMP (7) Anemia of other chronic disease: Code(s): D63.8 - Anemia in other chronic diseases classified elsewhere Status: Acute Assessment and Plan: Hb is 8.8 Subjective Date/time seen: 09/27/20 11:42 Interval history: 80 year old female patient is known to as discharge her yesterday as patient was admitted with right lower extremity wound and was seen by surgery team recommended amputation of the right lower extremity and patient refused, pt was admitted again with SOB. Pt is covid negative. C diff is negative stool is pending. Pt had a bout of non sustained VT today, seen by cardiology recent Nstemi, no significant arrhythmia, pt is cleared for amputation. Seen by orthopedics and ID. Amputation of Left below-knee planned. No specific compliants. Review of Systems Review of Systems: All systems reviewed & are unremarkable except as noted in HPI and below Exam Narrative: Exam Narrative: Elderly lady in chair, elderly patient HEENT:- PERRLA Lungs:- Clear lung lopez Heart:- S1 S2 Abd:- Soft nontender, bowel sounds present Ext:- R leg with prosthesis L leg with dressing Neuro: R leg with prosthesis Objective Data Vital Signs Vital Signs: Vital Signs - 24 hr 09/26/20 12:00 09/26/20 14:00 09/26/20 16:00 Temperature 36.2 C L Pulse Rate 74 71 71 Respiratory Rate 19 Blood Pressure 134/51 L Pulse Oximetry 94 09/26/20 17:00 09/26/20 21:15 09/26/20 21:30 Temperature 36.7 C Pulse Rate 79 78 Respiratory Rate 21 H Blood Pressure 127/64 Pulse Oximetry 94 93 09/26/20 22:00 09/26/20 23:00 09/27/20 00:00 Temperature 36.7 C Pulse Rate 70 68 69 Respiratory Rate 16 Blood Pressure 135/47 L Pulse Oximetry 93 09/27/20 02:00 09/27/20 04:00 09/27/20 06:00 Temperature 36.9 C 36.2 C L Pulse Rate 66 65 70 Respiratory Rate 16 18 Blood Pressure 127/50 L 144/64 H Pulse Oximetry 95 96 09/27/20 08:15 09/27/20 10:40 Temperature 36.6 C Pulse Rate 74 62 Respiratory Rate 17 Blood Pressure 116/51 L Pulse Oximetry 95 Intake/Output Intake/Output: Intake & Output 09/24/20 09/25/20 09/26/20 09/27/20 23:59 23:59 23:59 23:59 Intake Total 1205 1620 1830 790 Output Total 1400 1525 1750 800 Balance -195 95 80 -10
--- NOTE | 2020-09-27 12:52 | PM.PNORT ---
Progress Note: A&P Assessment and Plan (1) Osteomyelitis of left foot: Qualifiers: Osteomyelitis type: other acute Qualified Code(s): M86.172 - Other acute osteomyelitis, left ankle and foot Code(s): M86.9 - Osteomyelitis, unspecified Status: Acute Assessment and Plan: Discussed nonoperative and operative treatment options with the patient. The patients questions were answered. The patient desires operative treatment. Discussed left BKA Risks of surgery including but not limited to neurovascular damage, wound complications, blood clot, pulmonary embolus, stroke, myocardial infarction, anesthetic risks up to and including were reviewed. Continued pain and possible dysfunction were explained. No guarantees were offered. The patient understands and wishes to proceed. PLAN: Left below-knee amputation by Dr. Huerta pending cardiology clearance. NPO after midnight. Continue dressing changes to the LLE with Dakins soaked gauze. Cover Dry in the interim. Appreciate ID recommendations for post op antibiotics. Continue pain control. Elevate LLE on pillows. 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 (3) Peripheral vascular disease: Code(s): I73.9 - Peripheral vascular disease, unspecified Status: Acute Subjective Subjective Date/Time Seen: 09/27/20 12:52 Review of Systems Review of Systems: All systems reviewed & are unremarkable except as noted in HPI and below Exam Const: General: comfortable and no acute distress Resp: Effort & Inspection: normal respiratory effort Cardio: Rate: regular rate Rhythm: regular rhythm GI: Inspection: non-distended GI Palp: Yes Soft to palpation, No Tenderness to palpation present (GI) and No Guarding due to palpation present (GI) Skin: Wounds: wounds noted (see below ) Other: Dressing left foot c/d/i. Left leg proximal to the wound is improved in regards to redness/warmth/swelling. Large wound on the plantar aspect of the left foot with 80% necrosis/sloughing tissue and 20% pink/new granulation. Bone of the calcaneus visible/palpable. Venous stasis ulcer on the posterior aspect of the left leg as well as medial anterior aspect. New area of necrosis on the plantar aspect of the 5th metatarsal noted as well. Surrounding tissue with redness, warmth. Mild malodor noted. No purulence. Unable to palpate pedal pulses. Insensate. Moderate tenderness with dressing changes in the lower leg, area of venous stasis ulcers. Second and third ray amputations noted. Neuro: Cognition (Neuro): normal cognition Speech: normal speech Extrem: Left lower extremity: foot Details: vascular exam (Unable to palpate a pedal pulse) and motor-sensory exam light-touch abnormal in the great toe, in the 4th digit and in the 5th digit; not in the 2nd digit (absent ) and not in the 3rd digit (absent ); abnormal capillary refill Objective Data Vital Signs Vital Signs: Vital Signs - 24 hr 09/26/20 14:00 09/26/20 16:00 09/26/20 17:00 Temperature 36.2 C L 36.7 C Pulse Rate 71 71 79 Respiratory Rate 19 21 H Blood Pressure 134/51 L 127/64 Pulse Oximetry 94 94 09/26/20 21:15 09/26/20 21:30 09/26/20 22:00 Temperature 36.7 C Pulse Rate 78 70 Respiratory Rate 16 Blood Pressure 135/47 L Pulse Oximetry 93 93 09/26/20 23:00 09/27/20 00:00 09/27/20 0
[2020-09-27 16:33] LABS: Glucose Point of Care 454 (65-105)
[2020-09-27] MEDS: HYDROcodone/acetaminophen (*CRX) 5-325 MG TABLET 1 TAB PO (17:59)
[2020-09-27] MEDS: MIRTAZAPINE 15 MG TABLET PO (21:17)
[2020-09-27] MEDS: INSULIN GLARGINE (*BKC) 100 UNITS/ML 16 UNITS SUB-Q (21:18)
[2020-09-27] MEDS: INSULIN ASPART (*BKC) 100 UNITS/ML 10 UNITS SUB-Q (21:19)
[2020-09-27 21:37] LABS: Glucose Point of Care 458 (65-105)
[2020-09-28] VITALS (20 sets, daily range): BP systolic 105–131; BP diastolic 40–51; PULSE 57–162; RESP 14–26; TEMP 35.9–36.3; O2SAT 92–100
[2020-09-28 05:52] LABS: Hemoglobin 8.9 g/dL (12.0-15.0); Mean Corpuscular HGB Conc 28.7 g/dl (32-36); Mean Corpuscular Hemoglobin 27.6 pg (26-34); Mean Platelet Volume 10.7 fl (7.4-10.4); Platelet Count Result 293 k/mm3 (150-375); Red Blood Count 3.23 M/mm3 (4.2-5.4); Red Cell Distribution Width 15.9 % (11.5-14.5); White Blood Count 10.2 K/mm3 (4.5-10.0)
[2020-09-28 06:06] LABS: Alanine Aminotransferase 12 U/L (4-35); Albumin Level 2.7 g/dL (3.5-5.1); Alkaline Phosphatase 313 U/L (38-126); Aspartate Amino Transferase 29 U/L (14-36); Bilirubin,Total 0.4 mg/dL (0.2-1.3); Blood Urea Nitrogen 33 mg/dL (7-17); Calcium 7.6 mg/dL (8.4-10.2); Carbon Dioxide > 40 mmol/L (22-30); Chloride 91 mmol/L (98-107); Estimated CRCL calculation 46 ml/min; Estimated Glomerular Filt Rate 54; Glucose 342 mg/dL (65-105); Potassium 3.4 mmol/L (3.4-5.0); Sodium 137 mmol/L (137-145)
[2020-09-28] MEDS: INSULIN ASPART (*BKC) 100 UNITS/ML SUB-Q ×2 (06:51→18:05)
[2020-09-28 07:21] LABS: Glucose Point of Care 342 (65-105)
[2020-09-28] MEDS: carvediloL 12.5 MG TABLET PO ×2 (08:27→20:40)
[2020-09-28] MEDS: TOLNAFTATE 1% POWDER 45 GM BTL 1 APPLIC TOPICAL ×2 (08:28→20:44)
[2020-09-28] MEDS: SOD HYPOCHLORITE 1/4 STRENGTH 473 ML 1 APPLIC TOPICAL (08:28)
[2020-09-28] MEDS: PANTOPRAZOLE SODIUM IV 40 MG VIAL IV PUSH (08:28)
--- NOTE | 2020-09-28 11:57 | PM.IMPN ---
Progress Note: A&P Assessment and Plan (1) Osteomyelitis of left foot: Qualifiers: Osteomyelitis type: other acute Qualified Code(s): M86.172 - Other acute osteomyelitis, left ankle and foot Code(s): M86.9 - Osteomyelitis, unspecified Status: Acute Assessment and Plan: Left calcaneal bone secondary to nonhealing diabetic foot ulcer. Recent hospitalization from 09/13/20-09/22/20 in which she underwent excisional debridement. Left BKA recommended at that time however patient refused. She has now opted for left BKA which will be performed today. She has improved leukocytosis and is afebrile. Appreciate orthopedic recommendations. Continue elevation of LLE. Infectious disease following for post-operative antibiotic recommendations. Input is appreciated. Continue Ancef. (2) Infected stasis ulcer of left lower extremity: Code(s): I83.229 - Varicose veins of left lower extremity with both ulcer of unspecified site and inflammation; L97.929 - Non-pressure chronic ulcer of unspecified part of left lower leg with unspecified severity Status: Acute Assessment and Plan: With gangrene and left foot cellulitis. On 09/13/20, wound culture of left foot had GBS isolate, as well as MRSA (suspected to be colonizer). Plan as above. Continue with local wound care. Dakins solution BID. (3) NSTEMI (non-ST elevated myocardial infarction): Code(s): I21.4 - Non-ST elevation (NSTEMI) myocardial infarction Status: Acute Assessment and Plan: Elevated troponin upon presentation along with ST changes felt to be consistent with NSTEMI. She was started on heparin and transitioned to therapeutic lovenox which has been discontinued. Echo showed normal LV systolic function. She is asymptomatic today. Continue aspirin Cardiology has cleared patient for surgery today. Monitor clsoely for symptoms. (4) Acute respiratory failure with hypoxia: Code(s): J96.01 - Acute respiratory failure with hypoxia Status: Acute Assessment and Plan: Multifactorial secondary to COPD, CHF. Currently requiring 3 L O2 per nasal cannula. Continue supplemental O2 as needed with goal saturation 90% or above. Wean to goal. (5) CHF exacerbation: Code(s): I50.9 - Heart failure, unspecified Status: Acute Assessment and Plan: Echo showed normal LV systolic function with evidence of diastolic dysfunction. She denies cough or SOB. She is mildly edematous on exam. Continue IV Lasix. Monitor daily weights and I&O closely Heart healthy diet when no longer NPO. (6) Uncontrolled diabetes mellitus: Qualifiers: Diabetes mellitus type: type 2 Glycemic state: with hyperglycemia Qualified Code(s): E11.65 - Type 2 diabetes mellitus with hyperglycemia Code(s): E11.65 - Type 2 diabetes mellitus with hyperglycemia Status: Acute Assessment and Plan: Blood sugars have been poorly controlled with some readings up to 400. No evidence of DKA and anion gap is normal. Most recent A1c is 10.3. Continue with Accu-Cheks ACHS, high-dose sliding scale insulin, and hypoglycemia protocol Add 5 units NovoLog with meals Increase Lantus to 30 units nightly Strict glycemic control is imperative for healing process. (7) Hypokalemia: Code(s): E87.6 - Hypokalemia Status: Acute Assessment and Plan: Low upon presentation. Potassium stable today. Monitor potassium closely and replace as needed. (8) Anemia of other chronic disease: Code(s): D63.8 - Anemia in other chronic diseases classified elsewhere Status: Acute Assessment and Plan: H&H low but remaining stable. Vitals stable. No evidence of active bleeding. Monitor H&H closely Subjective Date/time seen: 09/28/20 11:57 Interval history: Date of service: 09/28/2020 Owen Escobar is a 80 year old female with a history of unco
[2020-09-28 12:17] LABS: Glucose Point of Care 229 (65-105)
--- NOTE | 2020-09-28 12:59 | PC.NURSE ---
To OR per bed, IV intact. Report given to JESSE Joe.
--- NOTE | 2020-09-28 13:29 | SUR.PREOP ---
1045-SPOKE WITH DR. 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 DR. PRESLEY STATES PROCEED WITH PT TO PREOP AREA.
--- NOTE | 2020-09-28 14:10 | WPDANESEPPF ---
Anes - Initial Pre Proc Eval Procedure: Operation Date: 09/28/20 14:00 Proposed Procedures p Left Below Knee Amputation - Alexy Huerta MD Date/Time: 09/28/20 14:10 Surgeon: Ingrid Gotti PA-C Pre Op Diagnosis: acute resp failure w hypoxia,chf exacerbation Patient Data Age: 80 Gender: F Height: 5 ft 1 in Weight: 104.5 kg Last Vital Signs Temp 97.0 F L 09/28/20 12:59 Pulse 61 09/28/20 12:59 Resp 20 09/28/20 12:59 BP 131/50 L 09/28/20 12:59 Pulse Ox 99 09/28/20 12:59 Allergies Allergy/AdvReac Type Severity Reaction Status Date / Time No Known Allergies Allergy Verified 09/26/20 16:45 Home Medications Medication Instructions Recorded Confirmed Type atorvastatin [Lipitor] 40 mg PO DAILY 09/13/20 09/23/20 History carvedilol [Coreg] 12.5 mg PO BID 09/13/20 09/23/20 History gabapentin 400 mg PO BID 09/13/20 09/23/20 History lisinopril [Zestril] 2.5 mg PO DAILY 09/13/20 09/23/20 History mirtazapine [Remeron] 15 mg PO HS 09/13/20 09/23/20 History doxycycline hyclate 100 mg PO DAILY #20 tablet 09/22/20 09/23/20 Rx hydrocodone-acetaminophen 1 tab PO Q4H PRN #10 tablet 09/22/20 09/23/20 Rx miconazole nitrate [Aloe [place] 1 applic TOPICAL Q12HR #1692 g 09/22/20 09/23/20 Rx Antifungal (micon)] sodium hypochlorite [Dakin's 1 applic TOPICAL DAILY #1 ml 09/22/20 09/23/20 Rx Solution] tolnaftate [Antifungal 1 applic TOPICAL DAILY #1 g 09/22/20 09/23/20 Rx (tolnaftate)] insulin glargine [Lantus Solostar 42 unit SUBCUT BID 09/23/20 09/23/20 History U-100 Insulin] Laboratory Tests 09/27/20 09/27/20 09/28/20 16:30 20:38 05:13 WBC 10.2 K/mm3 H K/mm3 (4.5-10.0) RBC 3.23 M/mm3 L M/mm3 (4.2-5.4) Hgb 8.9 g/dL L g/dL (12.0-15.0) Hct 31.0 % L % (37.0-47.0) MCV 96.0 fl fl (80-100) MCH 27.6 pg pg (26-34) MCHC 28.7 g/dl L g/dl (32-36) RDW 15.9 % H % (11.5-14.5) Plt Count 293 k/mm3 k/mm3 (150-375) MPV 10.7 fl H fl (7.4-10.4) Sodium Potassium Chloride Carbon Dioxide Anion Gap BUN Creatinine Estim Creat Clear Calc Estimated GFR Glucose POC Capillary Glucose 454 mg/dl H mg/dl 458 mg/dl H mg/dl (65-105) (65-105) Calcium Total Bilirubin AST ALT Alkaline Phosphatase Total Protein Albumin 09/28/20 09/28/20 09/28/20 05:13 06:13 12:14 WBC RBC Hgb Hct MCV MCH MCHC RDW Plt Count MPV Sodium 137 mmol/L mmol/L (137-145) Potassium 3.4 mmol/L mmol/L (3.4-5.0) Chloride 91 mmol/L L mmol/L (98-107) Carbon Dioxide > 40 mmol/L H mmol/L (22-30) Anion Gap mmol/L mmol/L (8-16) BUN 33 mg/dL H D mg/dL (7-17) Creatinine 1.00 mg/dL mg/dL (0.7-1.0) Estim Creat Clear Calc 46 ml/min ml/min Estimated GFR 54 L (59 - ) Glucose 342 mg/dL H mg/dL (65-105) POC Capillary Glucose 342 mg/dl H mg/dl 229 mg/dl H mg/dl (65-105) (65-105) Calcium 7.6 mg/dL L mg/dL (8.4-10.2) Total Bilirubin 0.4 mg/dL mg/dL (0.2-1.3) AST 29 U/L U/L (14-36) ALT 12 U/L U/L (4-35) Alkaline Phosphatase 313 U/L H U/L (38-126) Total Protein 6.0 g/dL L g/dL (6.3-8.2) Albumin 2.7 g/dL L g/dL (3.5-5.1) Patient hx anesthesia problems: none Family hx anesthesia problems: none [facility] Past Medical History Medical History (System 09/26/20 @ 16:45 by Debbie Adkins) Absent pedal pulses Depression Diabetes type 2, controlled Diabetic foot ulcer High cholesterol Hypertens
--- NOTE | 2020-09-28 14:53 | WPDHPUPDATE1 ---
History and Physical Update Update Date/Time: 09/28/20 14:53 History and Physical has been reviewed, including an updated exam of the patient. There are NO changes in the patient's condition. Patient with small run of V tach today. Discussed with cardiology. Ok to proceed to treat left foot infection. Plan further cardiac w/u if indicated after stable from infection. Risks, benefits, and alternatives have been discussed and questions answered. Patient agrees to proceed with procedure.
--- NOTE | 2020-09-28 15:50 | SUR.OPER ---
left below knee amputation with patient ID Label on foot/coban/and red bag/consent sent to pathology with specimen fresh [id number] per [facility].
--- NOTE | 2020-09-28 16:06 | SUR.OPER ---
arrives with catheter in and draining moderate dark yellow u/a. On right thigh with secure cath.
[2020-09-28] MEDS: LACTATED RINGERS 1,000 ML 30 ML IV CONT (16:29)
[2020-09-28 16:35] LABS: Glucose Point of Care 250 (65-105)
--- NOTE | 2020-09-28 16:41 | SUR.OPER ---
Tourniquet on Left thigh and not inflated. Wound Vac sealed and set on 125, low, continuous therapy.
[2020-09-28] MEDS: INSULIN HUMAN REGULAR (*BKC) 100 UNITS/ML 6 UNITS SUB-Q (16:44)
--- NOTE | 2020-09-28 16:44 | PM.PROC ---
Procedure Note - Detailed Date of procedure: 09/28/20 Pre-op diagnosis: acute resp failure w hypoxia,chf exacerbation Left foot osteomyelitis, diabetic foot ulcer, peripheral arterial disease Post-op diagnosis: same Procedure performed: left transtibial amputation below the knee. Description of procedure: Indications: 80-year-old woman with peripheral arterial disease, diabetes with neuropathy and left foot osteomyelitis. Previously underwent right below-knee amputation. Infection and necrosis of the left heel and plantar foot. Patient presents for amputation. She has had episodes of ventricular tachycardia in the past 2 days. She may need further cardiac workup and treatment. They are unable to proceed with that with necrotic and infected tissue left lower extremity. We have discussed removing the necrotic and infected tissue in a semi urgent manner, however, limited by conscious sedation. Indicated for more distal type amputation, wound VAC and possible revision at a later date if needed. What was done: Patient identified in the preoperative holding. Informed consent given. Operative extremity marked. Patient received intravenous antibiotics. Patient brought to the operating room where underwent general anesthetic by anesthesia team. Positioned supine on operating room table. Time-out performed confirming the patient, site of the surgery and the plan. Leg then prepped and draped usual sterile surgical fashion using Betadine prep solution. Calf and leg exsanguinated and a thigh tourniquet inflated to 250 mmHg. Anatomic landmarks mapped out on the skin to allow for a posterior flap and approximately 12 cm of tibia below the tibial tubercle. Skin incision made with a 10 blade knife. Hemostasis controlled electrocautery. Cautery dissection carried down circumferentially through the fascia. Dissection then carried around the proximal fibula, retractors placed in sagittal saw used to transect the fibula. Elevator used to dissect soft tissue off of the tibia. Tibia once again measured and the tibia osteotomy performed with a sagittal saw with retractors posterior to protect the soft tissue. Saphenous vessels and peroneal vessels were identified and ligated with 2 0 silk suture. The peroneal nerve and saphenous nerve identified and anesthetized with 0.5% Marcaine with epinephrine and ligated. Tibia was then brought forward and an amputation knife was placed posterior to the tibia and the distal fibula and the soft tissue was transected away from the bone. The cut was completed through the Achilles tendon. The distal leg ankle and foot were then passed off as specimen. Tibial artery identified and ligated with 2 0 silk suture. Tibial nerve identified and anesthetized with 0.5% Marcaine with epinephrine and ligated. Any other bleeding points coagulated with cautery. The tourniquet was then released. Any further bleeding was controlled with cautery or 2 0 silk suture ligation. After thorough hemostasis the wound was thoroughly irrigated with antibiotic solution. The anterior cortex of the tibia was shaped with the saw to reduce pressure. Thorough irrigation again performed. Fascia then repaired with 0 Vicryl interrupted suture. Subcutaneous tissue repaired with 2 Vicryl 3 0 Monocryl interrupted suture and skin repaired with micah. Incisional wound VAC applied to the amputation site. Sterile dressing. Patient awoken from anesthesia, extubated and taken to recovery room in stable condition. All sponge needle and instrument counts correct at the end of the case. Implants: None Anesthesia: MAC and local Surgeon: Alexy Huerta MD Fish Cleaner: welder assistant Estimated blood loss (mL): 100 Tourniquet time (min): 0 Drains: No Packing: No Pathology: yes ( left foot) Complications: None Condition: stable Disposition: PACU Findings: moderate distal blood flow at the posterior tibial artery and peroneal artery level. Muscle and soft tissue via
--- NOTE | 2020-09-28 17:01 | PM.PNCARD ---
Subjective Date/time seen: 09/28/20 15:45 Visited telemetry floor to see the patient but pt is still in surgery. Objective Data Vital Signs Vital Signs: Vital Signs - 24 hr 09/27/20 20:00 09/27/20 21:17 09/27/20 21:31 Temperature 36.1 C L Pulse Rate 70 70 Respiratory Rate 20 Blood Pressure 109/40 L Pulse Oximetry 92 94 09/28/20 00:00 09/28/20 04:00 09/28/20 08:00 Temperature 36.2 C L Pulse Rate 62 59 L 58 L Respiratory Rate 22 H Blood Pressure 116/40 L Pulse Oximetry 97 09/28/20 08:27 09/28/20 12:00 09/28/20 12:14 Temperature Pulse Rate 62 57 L 162 H Respiratory Rate Blood Pressure Pulse Oximetry 93 09/28/20 12:59 09/28/20 16:29 09/28/20 16:35 Temperature 36.1 C L 36.3 C L Pulse Rate 61 64 62 Respiratory Rate 20 26 H 20 Blood Pressure 131/50 L 112/44 L 119/50 L Pulse Oximetry 99 100 98 09/28/20 16:50 Temperature Pulse Rate 62 Respiratory Rate 20 Blood Pressure 124/51 L Pulse Oximetry 97 Intake/Output Intake/Output: Intake & Output 09/25/20 09/26/20 09/27/20 09/28/20 23:59 23:59 23:59 23:59 Intake Total 1620 1830 2160 50 Output Total 1525 1750 1575 350 Balance 95 80 585 -300 Meds/Results Medications: Active Medications Generic Name Dose Route Start Last Admin Trade Name Freq PRN Reason Stop Dose Admin Hydrocodone Bitart/Acetaminophen 1 tab 09/23/20 16:30 09/27/20 17:59 Hydrocodone/Acetaminophen (*Crx) 5-325 Mg Tablet PO 1 tab Q4H PRN Administration Pain Rated 4-6 Aspirin 325 mg 09/24/20 12:50 09/28/20 10:48 Aspirin 325 Mg Tablet PO Not Given DAILY@0800 [facility] Atorvastatin Calcium 40 mg 09/24/20 09:00 09/28/20 10:48 Atorvastatin 40 Mg Tablet PO Not Given DAILY NEW Carvedilol 12.5 mg 09/23/20 21:00 09/28/20 08:27 Carvedilol 12.5 Mg Tablet PO 12.5 mg Q12HR NEW Administration Dextrose 12.5 gm 09/24/20 06:30 Dextrose 50% 25 Gm/50 Ml Syringe IV PUSH PRN PRN Hypoglycemia Protocol Enoxaparin Sodium 40 mg 09/29/20 09:00 Enoxaparin 40 Mg/0.4 Ml Syringe SUB-Q DAILY NEW Fentanyl Citrate 25 mcg 09/28/20 14:17 Fentanyl Citrate Inj (*Crx) 100 Mcg/2 Ml Vial IV PUSH Q2M PRN Pain Furosemide 40 mg 09/23/20 09:00 09/28/20 10:47 Furosemide Inj 40 Mg/4 Ml Vial IV PUSH Not Given Q12HR NEW Gabapentin 400 mg 09/23/20 17:00 09/28/20 10:46 Gabapentin 400 Mg Capsule PO Not Given BID NEW Glucagon 1 mg 09/24/20 06:30 Glucagon For Inj 1 Mg Vial IM PRN PRN Hypoglycemia Protocol Glucose 15 gm 09/24/20 06:30 09/24/20 06:46 Glucose Oral Gel 15 Gm Of Glucse In 37.5 Gm Tube PO 15 gm PRN PRN Administration Hypoglycemia Protocol Dextrose 1,000 mls @ 100 mls/hr 09/24/20 06:30 Dextrose 5% 1,000 Ml IVPB PRN PRN Hypoglycemia Protocol Cefazolin Sodium 1 gm in 50 mls @ 100 mls/hr 09/26/20 14:30 09/28/20 14:14 Ancef 1 Gm/D5w 50 Ml Pm IVPB 100 mls/hr Q8HR NEW Administration Lactated Ringer's 1,000 mls @ 30 mls/hr 09/27/20 12:50 09/28/20 16:29 Lr - Lactated Ringers Iv IV CONT 30 mls/hr .Q24H NEW Administration Lactated Ringer's 1,000 mls @ 30 mls/hr 09/28/20 14:20 Lr - Lactated Ringers Iv IV CONT .Q24H [facility] Insulin Aspart 4 - 8 units 09/27/20 17:00 09/28/20 06:56 Insulin Aspart (*Bkc) 100 Units/Ml SUB-Q Not Given TIDWM [facility] Protocol Insulin Aspart 5 units 09/28/20 12:00 Insulin Aspart (*Bkc) 100 Units/Ml SUB-Q TIDWM [facility] Insulin Glargine 30 units 09/28/20 21:00 Insulin Glargine (*Bkc) 100 Units/Ml SUB-Q HS NEW Lisinopril 2.5 mg 09/24/20 09:00 09/28/20 10:48 Lisinopril 2.5 Mg Tablet PO Not Given DAILY [facility] Miconazole Nitrate 1 applic 09/23/20 09:00 09/28/20 08:28 Miconazole 2% Antifungal Ointment 56 Gm TOPICAL 1 applic Q12HR [facility] Administration Mirtazapine 15 mg 09/23/20 21:00 09/27/20 21:17 Mirtazap
--- NOTE | 2020-09-28 17:45 | PC.NURSE ---
Returned from OR per bed. Report received from JESSE Reza.
[2020-09-28 18:05] LABS: Glucose Point of Care 198 (65-105)
[2020-09-28] MEDS: GABAPENTIN 400 MG CAPSULE PO (18:06)
--- NOTE | 2020-09-28 19:28 | PC.NURSE ---
Wound vac in place Dakin's solution held.
[2020-09-28] MEDS: MIRTAZAPINE 15 MG TABLET PO (20:40)
[2020-09-28] MEDS: FUROSEMIDE INJ 40 MG/4 ML VIAL IV PUSH (20:40)
[2020-09-28] MEDS: INSULIN GLARGINE (*BKC) 100 UNITS/ML 30 UNITS SUB-Q (20:47)
[2020-09-28 20:50] LABS: Glucose Point of Care 232 (65-105)
[2020-09-28] MEDS: HYDROcodone/acetaminophen (*CRX) 5-325 MG TABLET 1 TAB PO (22:26)
[2020-09-29] VITALS (15 sets, daily range): BP systolic 88–137; BP diastolic 32–55; PULSE 65–84; RESP 16–33; TEMP 36.1–36.8; O2SAT 88–98
[2020-09-29 05:39] LABS: Hematocrit 30.7 % (37.0-47.0); Hemoglobin 8.9 g/dL (12.0-15.0); Mean Corpuscular Hemoglobin 27.8 pg (26-34); Mean Corpuscular Volume 95.9 fl (80-100); Mean Platelet Volume 10.8 fl (7.4-10.4); Platelet Count Result 293 k/mm3 (150-375); White Blood Count 13.5 K/mm3 (4.5-10.0)
[2020-09-29 05:57] LABS: Alanine Aminotransferase 11 U/L (4-35); Albumin Level 2.6 g/dL (3.5-5.1); Alkaline Phosphatase 299 U/L (38-126); Aspartate Amino Transferase 28 U/L (14-36); Bilirubin,Total 0.3 mg/dL (0.2-1.3); Blood Urea Nitrogen 24 mg/dL (7-17); Calcium 7.7 mg/dL (8.4-10.2); Carbon Dioxide > 40 mmol/L (22-30); Chloride 92 mmol/L (98-107); Estimated CRCL calculation 46 ml/min; Estimated Glomerular Filt Rate 54; Glucose 192 mg/dL (65-105); Potassium 3.3 mmol/L (3.4-5.0); Sodium 138 mmol/L (137-145)
--- NOTE | 2020-09-29 07:29 | WPDANESPN ---
Anes - Prog Note Post-Op Date/Time: 09/29/20 07:29 Cardiovascular status: normal Respiratory status: normal Airway patency: baseline Mental status: baseline Post-Op hydration status: normal Vital Signs: Last Vital Signs Temp 36.8 C 09/29/20 03:20 Pulse 67 09/29/20 04:22 Resp 18 09/29/20 03:20 BP 122/41 L 09/29/20 03:20 Pulse Ox 96 09/29/20 03:20 Pain Score (VAS): 0 I/O: Intake & Output 09/28/20 09/28/20 09/29/20 15:59 23:59 07:59 Intake Total 50 410 50 Balance 50 410 50 Laboratory Tests 09/29/20 05:12 09/29/20 05:12 09/28/20 09/28/20 09/28/20 12:14 16:33 18:00 WBC RBC Hgb Hct MCV MCH MCHC RDW Plt Count MPV Sodium Potassium Chloride Carbon Dioxide Anion Gap BUN Creatinine Estim Creat Clear Calc Estimated GFR Glucose POC Capillary Glucose 229 H 250 H 198 H Calcium Total Bilirubin AST ALT Alkaline Phosphatase Total Protein Albumin 09/28/20 09/29/20 09/29/20 20:39 05:12 05:12 WBC 13.5 H RBC 3.20 L Hgb 8.9 L Hct 30.7 L MCV 95.9 MCH 27.8 MCHC 29.0 L RDW 16.0 H Plt Count 293 MPV 10.8 H Sodium 138 Potassium 3.3 L Chloride 92 L Carbon Dioxide > 40 H Anion Gap BUN 24 H Creatinine 1.00 Estim Creat Clear Calc 46 Estimated GFR 54 L Glucose 192 H POC Capillary Glucose 232 H Calcium 7.7 L Total Bilirubin 0.3 AST 28 ALT 11 Alkaline Phosphatase 299 H Total Protein 6.0 L Albumin 2.6 L Microbiology 09/24/20 11:45 Stool Stool for WBCs - Final 09/24/20 11:45 Stool Escherichia coli Shiga Toxins - Final 09/24/20 11:45 Stool Campylobacter Culture - Final 09/24/20 11:45 Stool Salmonella/Shigella Culture - Final 09/24/20 11:45 Stool Cryptosporidium Exam - Final Post-procedural complaints: none Patient Feedback: Patient satisfied with anesthetic care.
[2020-09-29] MEDS: HYDROcodone/acetaminophen (*CRX) 5-325 MG TABLET 1 TAB PO ×2 (08:16→12:06)
[2020-09-29] MEDS: INSULIN ASPART (*BKC) 100 UNITS/ML SUB-Q ×5 (08:22→17:08)
[2020-09-29] MEDS: ENOXAPARIN 40 MG/0.4 ML SYRINGE SUB-Q (08:24)
[2020-09-29] MEDS: FUROSEMIDE INJ 40 MG/4 ML VIAL IV PUSH (08:24)
[2020-09-29] MEDS: ASPIRIN 325 MG TABLET PO (08:24)
[2020-09-29] MEDS: GABAPENTIN 400 MG CAPSULE PO ×2 (08:24→17:03)
[2020-09-29] MEDS: ATORVASTATIN 40 MG TABLET PO (08:24)
[2020-09-29] MEDS: lisinopriL 2.5 MG TABLET PO (08:25)
[2020-09-29] MEDS: PANTOPRAZOLE SODIUM IV 40 MG VIAL IV PUSH (08:25)
[2020-09-29] MEDS: TOLNAFTATE 1% POWDER 45 GM BTL 1 APPLIC TOPICAL ×2 (08:26→20:39)
[2020-09-29] MEDS: carvediloL 12.5 MG TABLET PO ×2 (08:27→20:38)
--- NOTE | 2020-09-29 08:53 | PC.NURSE ---
Senait PHLEBOTOMY TECHNICIAN here to see patient. Reported patient's c/o pain 9/10 45 minutes after receiving pain medication.
[2020-09-29 08:56] LABS: Glucose Point of Care 215 (65-105)
--- NOTE | 2020-09-29 09:20 | PM.PNORT ---
Progress Note: A&P Assessment and Plan (1) S/P BKA (below knee amputation): Qualifiers: Laterality: left Qualified Code(s): Z89.512 - Acquired absence of left leg below knee Code(s): Z89.519 - Acquired absence of unspecified leg below knee Status: Acute Assessment and Plan: POD #1: Left BKA Continue PT/OT. Transfer training. Continue hastings catheter pending successful first training session with PT/OT. Continue pain control, discussed frequency with nursing. May require increase in dosing. Elevate LLE. Wound VAC to left stump incision. Dressing intact at this time. Plan for dressing change tomorrow. Dispo: TRC vs SNF when medically stable. (2) Uncontrolled diabetes mellitus: Qualifiers: Diabetes mellitus type: type 2 Glycemic state: with hyperglycemia Qualified Code(s): E11.65 - Type 2 diabetes mellitus with hyperglycemia Code(s): E11.65 - Type 2 diabetes mellitus with hyperglycemia Status: Acute Assessment and Plan: Will require close diabetic control for optimal healing. Will need regular outpatient follow up with a PCP. (3) CHF exacerbation: Code(s): I50.9 - Heart failure, unspecified Status: Acute (4) Peripheral vascular disease: Code(s): I73.9 - Peripheral vascular disease, unspecified Status: Acute Subjective Subjective Date/Time Seen: 09/29/20 09:20 POD #1: Left BKA Complaints of pain 9/10. Received oral pain medication approximately 45 minutes prior to exam. Had not had pain medication since 10:00 PM last night. No additional complaints. Review of Systems Review of Systems: All systems reviewed & are unremarkable except as noted in HPI and below Exam Const: General: comfortable (appears comfortable. Rating pain 9/10 ) and no acute distress Resp: Effort & Inspection: normal respiratory effort Cardio: Rate: regular rate Rhythm: regular rhythm GI: Inspection: non-distended GI Palp: Yes Soft to palpation and No Tenderness to palpation present (GI) Urinary Catheter: Urinary Catheter: patent and draining and urine clear Skin: Wounds: wounds noted (Left BKA incision/dressing c/d/i. Wound VAC in place ) Neuro: General: No gait normal (NWB ) Cognition (Neuro): normal cognition Extrem: Right lower extremity: knee (BKA ) Left lower extremity: knee (BKA ) Other: Left BKA. Dressing c/d/i. WOUND VAC in place and functioning well. Serosanguineous drainage in chamber. Thigh soft. Sensation intact. Psych: Mental Status: mental status grossly normal Thought content: Yes Normal thought content present Objective Data Vital Signs Vital Signs: Vital Signs - 24 hr 09/28/20 12:00 09/28/20 12:14 09/28/20 12:59 Temperature 36.1 C L Pulse Rate 57 L 162 H 61 Respiratory Rate 20 Blood Pressure 131/50 L Pulse Oximetry 99 09/28/20 16:29 09/28/20 16:35 09/28/20 16:50 Temperature 36.3 C L Pulse Rate 64 62 62 Respiratory Rate 26 H 20 20 Blood Pressure 112/44 L 119/50 L 124/51 L Pulse Oximetry 100 98 97 09/28/20 17:05 09/28/20 17:15 09/28/20 17:35 Temperature 36.2 C L Pulse Rate 61 61 66 Respiratory Rate 24 H 14 18 Blood Pressure 112/45 L 105/47 L 129/46 L Pulse Oximetry 92 94 94 09/28/20 17:50 09/28/20 18:20 09/28/20 19:20 Temperature 35.9 C L 36.1 C L 36.2 C L Pulse Rate 60 70 65 Respiratory Rate 20 20 18 Blood Pressure 118/41 L 121/47 L 109/40 L Pulse Oximetry 93 93 97 09/28/20 20:40 09/28/20 20:57 09/28/20 21:35 Temperature Pulse Rate 75 65 Respiratory Rate Blood Pressure Pulse Oximetry 97 09/28/20 23:20 09/29/20 00:00 09/29/20 03:20 Temperature 36.3 C L 36.8 C Pulse Rate 67 65 68 Respiratory Rate 18 18 Blood Pressure 107/40 L 122/41 L Pulse Oximetry 97 96 09/29/20 04:22 09/29/20 07:20 09/29/20 08:27 Temperature 36.7 C Pulse Rate 67 75 84 Respiratory Rate 16 Blood Pressure 137/55 L Pulse Oximetry 95 Intake/Output Intake/Output
--- NOTE | 2020-09-29 12:08 | PM.IMPN ---
Progress Note: A&P Assessment and Plan (1) S/P BKA (below knee amputation): Qualifiers: Laterality: left Qualified Code(s): Z89.512 - Acquired absence of left leg below knee Code(s): Z89.519 - Acquired absence of unspecified leg below knee Status: Acute Assessment and Plan: Underwent left BKA on 09/28/[address] Huerta. No immediate surgical complications. She tolerated the procedure well. Pain is well controlled at this time. Appreciate orthopedic recommendation Continue with PT and OT. Patient is working on transfers. Analgesics as needed Continue with wound VAC Continue Lindquist catheter Care coordination following for possible TRC versus SNF. (2) Osteomyelitis of left foot: Qualifiers: Osteomyelitis type: other acute Qualified Code(s): M86.172 - Other acute osteomyelitis, left ankle and foot Code(s): M86.9 - Osteomyelitis, unspecified Status: Acute Assessment and Plan: Left calcaneal bone secondary to nonhealing diabetic foot ulcer. Recent hospitalization from 09/13/20-09/22/20 in which she underwent excisional debridement. Now s/p left BKA. See above. Infectious disease following for post-operative antibiotic recommendations. Input is appreciated. Continue Ancef at this time (3) Infected stasis ulcer of left lower extremity: Code(s): I83.229 - Varicose veins of left lower extremity with both ulcer of unspecified site and inflammation; L97.929 - Non-pressure chronic ulcer of unspecified part of left lower leg with unspecified severity Status: Acute Assessment and Plan: With gangrene and left foot cellulitis. On 09/13/20, wound culture of left foot had GBS isolate, as well as MRSA (suspected to be colonizer). Now s/p BKA as above. (4) NSTEMI (non-ST elevated myocardial infarction): Code(s): I21.4 - Non-ST elevation (NSTEMI) myocardial infarction Status: Acute Assessment and Plan: Elevated troponin upon presentation along with ST changes felt to be consistent with NSTEMI. She was started on heparin and transitioned to therapeutic lovenox which has now been discontinued. Echo showed normal LV systolic function. She is asymptomatic today. Continue aspirin Monitor closely for symptoms. Monitor on telemetry Appreciate cardiology recommendations (5) Acute respiratory failure with hypoxia: Code(s): J96.01 - Acute respiratory failure with hypoxia Status: Acute Assessment and Plan: Multifactorial secondary to COPD, CHF. Currently requiring 2 L O2 per nasal cannula, down from 3L yesterday. Continue supplemental O2 as needed with goal saturation 90% or above. Wean to goal. Albuterol as needed (6) CHF exacerbation: Code(s): I50.9 - Heart failure, unspecified Status: Acute Assessment and Plan: Echo showed normal LV systolic function with evidence of diastolic dysfunction. She denies cough or SOB. She is mildly edematous on exam. Continue IV Lasix at decreased dose of 40 mg daily. Plan to transition to 40 mg PO lasix tomorrow Monitor daily weights and I&O closely Heart healthy diet when no longer NPO. (7) Uncontrolled diabetes mellitus: Qualifiers: Diabetes mellitus type: type 2 Glycemic state: with hyperglycemia Qualified Code(s): E11.65 - Type 2 diabetes mellitus with hyperglycemia Code(s): E11.65 - Type 2 diabetes mellitus with hyperglycemia Status: Acute Assessment and Plan: Blood sugars have been poorly controlled with some readings up to 400. No evidence of DKA and anion gap is normal. Most recent A1c is 10.3. Blood sugars slightly improved today but still not at goal. Continue with Accu-Cheks ACHS, high-dose sliding scale insulin, and hypoglycemia protocol Increase to 8 units NovoLog with meals Continue Lantus to 30 units nightly Strict glycemic control is imperative (8) Hypokalemia: Code(s): E8
--- NOTE | 2020-09-29 13:06 | WPDINFPN2 ---
Progress Note: A&P Assessment and Plan (1) Lower extremity cellulitis: Qualifiers: Laterality: left Qualified Code(s): L03.116 - Cellulitis of left lower limb Code(s): L03.119 - Cellulitis of unspecified part of limb Status: Acute Assessment and Plan: 1. Gangrene of Left foot with cellulitis, POD # 1. 2. Severe ASPVD 3. DM 4. Prior BKA right 5. Mild leukocytosis, physiologic post op REC Ancef #4, stop and follow. Will sign off, thanks. Subjective Date/time seen: 09/29/20 13:06 Interval history: feels better. No diarrhea Exam Narrative: Exam Narrative: afebrile Const: General: no acute distress GI: Inspection: non-distended GI Palp: Yes Soft to palpation and No Tenderness to palpation present (GI) Extrem: Other: dressed left leg. Wound vac in place Objective Data Vital Signs Vital Signs: Vital Signs - 24 hr 09/28/20 16:29 09/28/20 16:35 09/28/20 16:50 Temperature 36.3 C L Pulse Rate 64 62 62 Respiratory Rate 26 H 20 20 Blood Pressure 112/44 L 119/50 L 124/51 L Pulse Oximetry 100 98 97 09/28/20 17:05 09/28/20 17:15 09/28/20 17:35 Temperature 36.2 C L Pulse Rate 61 61 66 Respiratory Rate 24 H 14 18 Blood Pressure 112/45 L 105/47 L 129/46 L Pulse Oximetry 92 94 94 09/28/20 17:50 09/28/20 18:20 09/28/20 19:20 Temperature 35.9 C L 36.1 C L 36.2 C L Pulse Rate 60 70 65 Respiratory Rate 20 20 18 Blood Pressure 118/41 L 121/47 L 109/40 L Pulse Oximetry 93 93 97 09/28/20 20:40 09/28/20 20:57 09/28/20 21:35 Temperature Pulse Rate 75 65 Respiratory Rate Blood Pressure Pulse Oximetry 97 09/28/20 23:20 09/29/20 00:00 09/29/20 03:20 Temperature 36.3 C L 36.8 C Pulse Rate 67 65 68 Respiratory Rate 18 18 Blood Pressure 107/40 L 122/41 L Pulse Oximetry 97 96 09/29/20 04:22 09/29/20 07:20 09/29/20 08:00 Temperature 36.7 C Pulse Rate 67 75 83 Respiratory Rate 16 Blood Pressure 137/55 L Pulse Oximetry 95 09/29/20 08:27 09/29/20 10:15 Temperature 36.4 C L Pulse Rate 84 80 Respiratory Rate 28 H Blood Pressure 130/42 L Pulse Oximetry 92 Intake/Output Intake/Output: Intake & Output 09/26/20 09/27/20 09/28/20 09/29/20 23:59 23:59 23:59 23:59 Intake Total 1830 2160 510 1290 Output Total 1750 1575 350 700 Balance 80 585 160 590 Meds/Results Medications: Active Medications Generic Name Dose Route Start Last Admin Trade Name Freq PRN Reason Stop Dose Admin Hydrocodone Bitart/Acetaminophen 1 tab 09/23/20 16:30 09/29/20 12:06 Hydrocodone/Acetaminophen (*Crx) 5-325 Mg Tablet PO 1 tab Q4H PRN Administration Pain Rated 4-6 Albuterol 2 puff 09/29/20 12:26 Albuterol Sulfate (*Sp) Aerosol 1 Puff INHALATION Q6HRT PRN Shortness Of Breath Aspirin 325 mg 09/24/20 12:50 09/29/20 08:24 Aspirin 325 Mg Tablet PO 325 mg DAILY@0800 NEW Administration Atorvastatin Calcium 40 mg 09/24/20 09:00 09/29/20 08:24 Atorvastatin 40 Mg Tablet PO 40 mg DAILY NEW Administration Carvedilol 12.5 mg 09/23/20 21:00 09/29/20 08:27 Carvedilol 12.5 Mg Tablet PO 12.5 mg Q12HR NEW Administration Dextrose 12.5 gm 09/24/20 06:30 Dextrose 50% 25 Gm/50 Ml Syringe IV PUSH PRN PRN Hypoglycemia Protocol Enoxaparin Sodium 40 mg 09/29/20 09:00 09/29/20 08:24 Enoxaparin 40 Mg/0.4 Ml Syringe SUB-Q 40 mg DAILY NEW Administration Furosemide 40 mg 09/30/20 09:00 Furosemide 40 Mg Tablet PO DAILY NEW Gabapentin 400 mg 09/23/20 17:00 09/29/20 08:24 Gabapentin 400 Mg Capsule PO 400 mg BID NEW Administration Glucagon 1 mg 09/24/20 06:30 Glucagon For Inj 1 Mg Vial IM PRN PRN Hypoglycemia Protocol Glucose 15 gm 09/24/20 06:30 09/24/20 06:46 Glucose Oral Gel 15 Gm Of Glucse In 37.5 Gm Tube PO 15 gm PRN PRN Administration Hypoglycemia Protocol Dextrose 1,000 mls @ 100 mls/hr 09/24/20 06:30
[2020-09-29 13:40] LABS: Glucose Point of Care 203 (65-105)
--- NOTE | 2020-09-29 13:45 | PC.NURSE ---
Called Dr. Martinez regarding what appeared to be an 18 beat run of Vtach. Patient arouses easily and asymptomatic. Normal sinus rhythm resumed after [address] Martinez here on the floor and saw patient. Showed him the strips. Per Dr. Burgess, this is not Vtach but appears to be Afib. Patient now in SR and no symptoms reported.
--- NOTE | 2020-09-29 14:45 | PM.PNCARD ---
Progress Note: A&P Assessment and Plan (1) NSTEMI (non-ST elevated myocardial infarction): Code(s): I21.4 - Non-ST elevation (NSTEMI) myocardial infarction Status: Acute Assessment and Plan: Echocardiogram showed normal left ventricular systolic function with calcified mitral valve, she seems to be stable from cardiac standpoint, would start on Plavix, and consider outpatient cardiac catheterization at a later stage which is otherwise stable, with no active infection (2) Acute respiratory failure with hypoxia: Code(s): J96.01 - Acute respiratory failure with hypoxia Status: Acute (3) CHF exacerbation: Code(s): I50.9 - Heart failure, unspecified Status: Acute Assessment and Plan: Echo showed normal left ventricular systolic function but with evidence of diastolic dysfunction and pulmonary hypertension (4) Elevated troponin: Code(s): R77.8 - Other specified abnormalities of plasma proteins Status: Acute (5) Infected stasis ulcer of left lower extremity: Code(s): I83.229 - Varicose veins of left lower extremity with both ulcer of unspecified site and inflammation; L97.929 - Non-pressure chronic ulcer of unspecified part of left lower leg with unspecified severity Status: Acute Assessment and Plan: S status post amputation (6) Peripheral vascular disease: Code(s): I73.9 - Peripheral vascular disease, unspecified Status: Acute (7) Paroxysmal atrial fibrillation: Code(s): I48.0 - Paroxysmal atrial fibrillation Status: Acute Assessment and Plan: She had few episode of paroxysmal atrial fibrillations, no symptoms, will continue with full-dose aspirin, and Plavix, will add amiodarone for rhythm control. Additional Plan Subjective Date/time seen: 09/29/20 14:45 She feels okay today, she underwent her leg amputation yesterday did okay. On the monitor noted to have 1 episode of atrial fibrillation with rapid ventricular response no symptoms Exam Narrative: Exam Narrative: Awake alert oriented x3 not in acute distress Neck is supple no obvious JVD, no carotid bruit Chest: She has decreased breathing sound in the bases with bibasilar crackles noted Cardiovascular: Regular rate and rhythm, 2/6 systolic murmur noted left sternal border Abdomen: Soft nontender bowel sounds positive Extremities: Trace edema noted bilaterally, right leg with [id number] amputation, left leg below-knee amputation Objective Data Vital Signs Vital Signs: Vital Signs - 24 hr 09/28/20 16:29 09/28/20 16:35 09/28/20 16:50 Temperature 36.3 C L Pulse Rate 64 62 62 Respiratory Rate 26 H 20 20 Blood Pressure 112/44 L 119/50 L 124/51 L Pulse Oximetry 100 98 97 09/28/20 17:05 09/28/20 17:15 09/28/20 17:35 Temperature 36.2 C L Pulse Rate 61 61 66 Respiratory Rate 24 H 14 18 Blood Pressure 112/45 L 105/47 L 129/46 L Pulse Oximetry 92 94 94 09/28/20 17:50 09/28/20 18:20 09/28/20 19:20 Temperature 35.9 C L 36.1 C L 36.2 C L Pulse Rate 60 70 65 Respiratory Rate 20 20 18 Blood Pressure 118/41 L 121/47 L 109/40 L Pulse Oximetry 93 93 97 09/28/20 20:40 09/28/20 20:57 09/28/20 21:35 Temperature Pulse Rate 75 65 Respiratory Rate Blood Pressure Pulse Oximetry 97 09/28/20 23:20 09/29/20 00:00 09/29/20 03:20 Temperature 36.3 C L 36.8 C Pulse Rate 67 65 68 Respiratory Rate 18 18 Blood Pressure 107/40 L 122/41 L Pulse Oximetry 97 96 09/29/20 04:22 09/29/20 07:20 09/29/20 08:00 Temperature 36.7 C Pulse Rate 67 75 83 Respiratory Rate 16 Blood Pressure 137/55 L Pulse Oximetry 95 09/29/20 08:27 09/29/20 10:15 Temperature 36.4 C L Pulse Rate 84 80 Respiratory Rate 28 H Blood Pressure 130/42 L Pulse Oximetry 92 Intake/Output Intake/Output: Intake & Output 09/26/20 09/27/20 09/28/20 09/29/20 23:59 23:59 23:59 23:59 Intake Total 1830 2160 510 1290 Output Total 1750 1575 350 700
[2020-09-29] MEDS: POTASSIUM CHLORIDE 20 MEQ TABLET PO (17:03)
[2020-09-29] MEDS: INSULIN ASPART (*BKC) 100 UNITS/ML 8 UNITS SUB-Q (17:09)
[2020-09-29 17:23] LABS: Glucose Point of Care 279 (65-105)
[2020-09-29] MEDS: INSULIN GLARGINE (*BKC) 100 UNITS/ML 30 UNITS SUB-Q (20:38)
[2020-09-29] MEDS: MIRTAZAPINE 15 MG TABLET PO (20:38)
[2020-09-29 20:50] LABS: Glucose Point of Care 234 (65-105)
[2020-09-30] VITALS (15 sets, daily range): BP systolic 101–120; BP diastolic 30–53; PULSE 62–70; RESP 16–24; TEMP 36.3–36.9; O2SAT 85–99; BMI 11.0
[2020-09-30] MEDS: HYDROcodone/acetaminophen (*CRX) 5-325 MG TABLET 1 TAB PO ×4 (02:59→21:40)
[2020-09-30 05:48] LABS: Hematocrit 27.8 % (37.0-47.0); Hemoglobin 8.1 g/dL (12.0-15.0); Mean Corpuscular HGB Conc 29.1 g/dl (32-36); Mean Corpuscular Hemoglobin 27.8 pg (26-34); Mean Corpuscular Volume 95.5 fl (80-100); Mean Platelet Volume 11.3 fl (7.4-10.4); Platelet Count Result 259 k/mm3 (150-375); Red Blood Count 2.91 M/mm3 (4.2-5.4); Red Cell Distribution Width 16.4 % (11.5-14.5); White Blood Count 12.7 K/mm3 (4.5-10.0)
[2020-09-30 06:08] LABS: Alanine Aminotransferase 9 U/L (4-35); Albumin Level 2.5 g/dL (3.5-5.1); Alkaline Phosphatase 275 U/L (38-126); Aspartate Amino Transferase 28 U/L (14-36); Bilirubin,Total 0.5 mg/dL (0.2-1.3); Blood Urea Nitrogen 28 mg/dL (7-17); Calcium 7.6 mg/dL (8.4-10.2); Carbon Dioxide > 40 mmol/L (22-30); Chloride 91 mmol/L (98-107); Estimated CRCL calculation 39 ml/min; Estimated Glomerular Filt Rate 43; Glucose 169 mg/dL (65-105); Potassium 3.5 mmol/L (3.4-5.0); Sodium 135 mmol/L (137-145)
[2020-09-30 06:49] LABS: Glucose Point of Care 147 (65-105)
[2020-09-30] MEDS: SODIUM CHLORIDE 0.9% IV 1,000 ML 100 ML IV CONT ×2 (08:33→20:27)
[2020-09-30] MEDS: PANTOPRAZOLE SODIUM IV 40 MG VIAL IV PUSH (08:46)
[2020-09-30] MEDS: GABAPENTIN 400 MG CAPSULE PO ×2 (08:48→17:27)
[2020-09-30] MEDS: carvediloL 12.5 MG TABLET PO ×2 (08:48→20:59)
[2020-09-30] MEDS: CLOPIDOGREL BISULFATE 75 MG TABLET PO (08:48)
[2020-09-30] MEDS: FUROSEMIDE 40 MG TABLET PO (08:48)
[2020-09-30] MEDS: ATORVASTATIN 40 MG TABLET PO (08:48)
[2020-09-30] MEDS: AMIODARONE HCL 200 MG TABLET PO (08:48)
[2020-09-30] MEDS: ENOXAPARIN 40 MG/0.4 ML SYRINGE SUB-Q (08:49)
[2020-09-30] MEDS: ASPIRIN 325 MG TABLET PO (08:49)
[2020-09-30] MEDS: lisinopriL 2.5 MG TABLET PO (08:49)
[2020-09-30] MEDS: INSULIN ASPART (*BKC) 100 UNITS/ML 8 UNITS SUB-Q ×2 (08:50→17:27)
[2020-09-30] MEDS: TOLNAFTATE 1% POWDER 45 GM BTL 1 APPLIC TOPICAL ×2 (08:52→20:28)
--- NOTE | 2020-09-30 08:57 | PM.PNORT ---
Progress Note: A&P Assessment and Plan (1) S/P BKA (below knee amputation): Qualifiers: Laterality: left Qualified Code(s): Z89.512 - Acquired absence of left leg below knee Code(s): Z89.519 - Acquired absence of unspecified leg below knee Status: Acute Assessment and Plan: POD #2: Left BKA Continue PT/OT. Transfer training. D/C hastings catheter pending successful first training session with PT/OT. Continue pain control, discussed frequency with nursing. May require increase in dosing. Elevate LLE. Wound VAC to left stump incision. Dressing intact at this time. Plan for wound vac dressing change today Dispo: TRC vs SNF when medically stable. (2) Uncontrolled diabetes mellitus: Qualifiers: Diabetes mellitus type: type 2 Glycemic state: with hyperglycemia Qualified Code(s): E11.65 - Type 2 diabetes mellitus with hyperglycemia Code(s): E11.65 - Type 2 diabetes mellitus with hyperglycemia Status: Acute Assessment and Plan: Will require close diabetic control for optimal healing. Will need regular outpatient follow up with a PCP. (3) CHF exacerbation: Code(s): I50.9 - Heart failure, unspecified Status: Acute (4) Peripheral vascular disease: Code(s): I73.9 - Peripheral vascular disease, unspecified Status: Acute Subjective Subjective Date/Time Seen: 09/30/20 08:57 Patient awake and alert. Complains of some pain left leg when manipulated. Otherwise pain improved. Denies nausea or vomiting. Exam Const: General: comfortable (appears comfortable. Rating pain 9/10 ) and no acute distress Resp: Effort & Inspection: normal respiratory effort Cardio: Rate: regular rate Rhythm: regular rhythm GI: Inspection: non-distended GI Palp: Yes Soft to palpation and No Tenderness to palpation present (GI) Urinary Catheter: Urinary Catheter: patent and draining and urine clear Skin: Wounds: wounds noted (Left BKA incision/dressing c/d/i. Wound VAC in place ) Neuro: General: No gait normal (NWB ) Cognition (Neuro): normal cognition Extrem: Right lower extremity: knee (BKA ) Left lower extremity: knee (BKA ) Other: Left BKA. Dressing c/d/i. WOUND VAC in place and functioning well. Serosanguineous drainage in chamber. Thigh soft. Sensation intact. Psych: Mental Status: mental status grossly normal Thought content: Yes Normal thought content present Objective Data Vital Signs Vital Signs: Vital Signs - 24 hr 09/29/20 10:15 09/29/20 11:20 09/29/20 12:00 Temperature 97.5 F L 97.5 F L Pulse Rate 80 73 75 Respiratory Rate 28 H 28 H Blood Pressure 130/42 L 88/32 L Pulse Oximetry 92 90 09/29/20 14:00 09/29/20 15:20 09/29/20 16:00 Temperature 97.3 F L 97.3 F L Pulse Rate 80 73 71 Respiratory Rate 33 H 28 H Blood Pressure 98/42 L 100/48 L Pulse Oximetry 88 L 90 09/29/20 20:00 09/29/20 20:38 09/29/20 22:00 Temperature 97.0 F L Pulse Rate 73 67 69 Respiratory Rate 20 Blood Pressure 115/42 L Pulse Oximetry 97 98 09/30/20 00:00 09/30/20 02:00 09/30/20 04:00 Temperature 97.5 F L Pulse Rate 68 70 69 Respiratory Rate 16 Blood Pressure 101/53 L Pulse Oximetry 95 09/30/20 06:00 09/30/20 08:48 Temperature 98.4 F Pulse Rate 65 65 Respiratory Rate 20 Blood Pressure 120/47 L Pulse Oximetry 98 Intake/Output Intake/Output: Intake & Output 09/27/20 09/28/20 09/29/20 09/30/20 23:59 23:59 23:59 23:59 Intake Total 2160 510 2250 300 Output Total 1601 395 2742 400 Balance 750 339 8133 -100 Meds/Results Medications: Active Medications Generic Name Dose Route Start Last Admin Trade Name Freq PRN Reason Stop Dose Admin Hydrocodone Bitart/Acetaminophen 1 tab 09/23/20 16:30 09/30/20 02:59 Hydrocodone/Acetaminophen (*Crx) 5-325 Mg Tablet PO 1 tab Q4H PRN Administration Pain Rated 4-6 Albuterol 2 puff 09/29/20 12:26 Albuterol Sulfate (*Sp) Aerosol 1 Puff INHALATIO
--- NOTE | 2020-09-30 11:07 | PM.IMPN ---
Progress Note: A&P Assessment and Plan (1) S/P BKA (below knee amputation): Qualifiers: Laterality: left Qualified Code(s): Z89.512 - Acquired absence of left leg below knee Code(s): Z89.519 - Acquired absence of unspecified leg below knee Status: Acute Assessment and Plan: Underwent left BKA on 09/28/[address] Huerta. No immediate surgical complications. She tolerated the procedure well. Pain is well controlled at this time. Appreciate orthopedic recommendations Continue with PT and OT. Patient is working on transfers. Analgesics as needed Continue with wound VAC Continue Lindquist catheter pending therapy sessions Care coordination following for possible TRC vs SNF. (2) Osteomyelitis of left foot: Qualifiers: Osteomyelitis type: other acute Qualified Code(s): M86.172 - Other acute osteomyelitis, left ankle and foot Code(s): M86.9 - Osteomyelitis, unspecified Status: Acute Assessment and Plan: Left calcaneal bone secondary to nonhealing diabetic foot ulcer. Recent hospitalization from 09/13/20-09/22/20 in which she underwent excisional debridement. Now s/p left BKA. See above. Infectious disease following for post-operative antibiotic recommendations. Input is appreciated. She received 4 doses of Ancef; discontinued on 09/29/[address] Tavarez's recommendation (3) Infected stasis ulcer of left lower extremity: Code(s): I83.229 - Varicose veins of left lower extremity with both ulcer of unspecified site and inflammation; L97.929 - Non-pressure chronic ulcer of unspecified part of left lower leg with unspecified severity Status: Acute Assessment and Plan: With gangrene and left foot cellulitis. On 09/13/20, wound culture of left foot had GBS isolate, as well as MRSA (suspected to be colonizer). Now s/p BKA as above. (4) NSTEMI (non-ST elevated myocardial infarction): Code(s): I21.4 - Non-ST elevation (NSTEMI) myocardial infarction Status: Acute Assessment and Plan: Elevated troponin upon presentation along with ST changes felt to be consistent with NSTEMI. She was started on heparin and transitioned to therapeutic lovenox which has now been discontinued. Echo showed normal LV systolic function. She is asymptomatic today. Cardiology following and input is appreciated. Continue aspirin Started on Plavix Monitor closely for symptoms. Monitor on telemetry (5) Acute respiratory failure with hypoxia: Code(s): J96.01 - Acute respiratory failure with hypoxia Status: Acute Assessment and Plan: Multifactorial secondary to COPD, CHF. Currently requiring 2 L O2 per nasal cannula, down from 3L yesterday. Continue supplemental O2 as needed with goal saturation 90% or above. Wean to goal. Albuterol as needed (6) CHF exacerbation: Code(s): I50.9 - Heart failure, unspecified Status: Acute Assessment and Plan: Echo showed normal LV systolic function with evidence of diastolic dysfunction. She denies cough or SOB. She appears euvolemic on exam today. Transition to 40 mg p.o. Lasix today. IV Lasix discontinued 09/29 Monitor daily weights and I&O closely Heart healthy diet (7) Uncontrolled diabetes mellitus: Qualifiers: Diabetes mellitus type: type 2 Glycemic state: with hyperglycemia Qualified Code(s): E11.65 - Type 2 diabetes mellitus with hyperglycemia Code(s): E11.65 - Type 2 diabetes mellitus with hyperglycemia Status: Acute Assessment and Plan: Blood sugars have been poorly controlled with some readings up to 400. No evidence of DKA and anion gap is normal. Most recent A1c is 10.3. Blood sugars slightly improved following addition of lantus and scheduled novolog but still not at goal. Continue with Accu-Cheks ACHS, high-dose sliding scale insulin, and hypoglycemia protocol Continue with 8 units NovoLog with meals Cont
--- NOTE | 2020-09-30 11:55 | PM.PNCARD ---
Progress Note: A&P Assessment and Plan (1) Paroxysmal atrial fibrillation: Code(s): I48.0 - Paroxysmal atrial fibrillation Status: Acute (2) S/P BKA (below knee amputation): Qualifiers: Laterality: left Qualified Code(s): Z89.512 - Acquired absence of left leg below knee Code(s): Z89.519 - Acquired absence of unspecified leg below knee Status: Acute (3) Osteomyelitis of left foot: Qualifiers: Osteomyelitis type: other acute Qualified Code(s): M86.172 - Other acute osteomyelitis, left ankle and foot Code(s): M86.9 - Osteomyelitis, unspecified Status: Acute (4) NSTEMI (non-ST elevated myocardial infarction): Code(s): I21.4 - Non-ST elevation (NSTEMI) myocardial infarction Status: Acute Assessment and Plan: Echocardiogram showed normal left ventricular systolic function with calcified mitral valve, she seems to be stable from cardiac standpoint, would cont Plavix, and consider outpatient cardiac catheterization at a later stage which is otherwise stable, with no active infection (5) Acute respiratory failure with hypoxia: Code(s): J96.01 - Acute respiratory failure with hypoxia Status: Acute (6) CHF exacerbation: Code(s): I50.9 - Heart failure, unspecified Status: Acute Assessment and Plan: Echo showed normal left ventricular systolic function but with evidence of diastolic dysfunction and pulmonary hypertensioEcho showed normal left ventricular systolic function but with evidence of diastolic dysfunction and pulmonary hypertensio (7) Infected stasis ulcer of left lower extremity: Code(s): I83.229 - Varicose veins of left lower extremity with both ulcer of unspecified site and inflammation; L97.929 - Non-pressure chronic ulcer of unspecified part of left lower leg with unspecified severity Status: Acute Assessment and Plan: 83.229 - Varicose veins of left lower extremity with both ulcer of unspecified site and inflammation; L97.929 - Non-pressure chronic ulcer of unspecified part of left lower leg with unspecified severity Subjective Date/time seen: 09/30/20 Pt feels fine today. No CP, SOB or palpitations. Tolerates rehab well. pt was seen and examined, chart was reviewed, d/w pt;s nurse. Review of Systems Review of Systems: All systems reviewed & are unremarkable except as noted in HPI and below Constitutional: Constitutional: Reports as per HPI Eyes: Eyes: Reports as per HPI ENT: Reports system reviewed and no additional complaints, except as documented and Reports as per HPI Cardiovascular: Cardiovascular: Reports as per HPI Respiratory: Respiratory: Reports as per HPI Gastrointestinal: Gastrointestinal: Reports as per HPI Genitourinary: Genitourinary: Reports as per HPI Musculoskeletal: Musculoskeletal: Reports as per HPI Exam Const: General: no acute distress Nutritional Appearance: well nourished Orientation/consciousness: patient oriented x3 HENMT: Head: normal to inspection and atraumatic Ears: hearing grossly normal bilaterally Face and sinus: normal facial exam Eyes: General: appearance normal, both eyes and all related structures Pupils: Equal, round and reactive pupils present EOM: EOMs intact bilaterally Neck: Neck: supple Chest: Chest palpation & inspection: normal inspection of the chest Resp: Effort & Inspection: normal respiratory effort and no respiratory distress Auscultation: clear to auscultation bilaterally Cardio: Jugular venous distension: no JVD Rate: regular rate Heart sounds: S1 normal heart sound present, S2 normal heart sound present and no murmurs Peripheral pulses: Peripheral pulses 2+ throughout GI: GI Palp: No abdominal tenderness Auscultation: normal bowel sounds Skin: General skin exam: normal color Neuro: General: patient oriented x3 Cranial nerves: Yes Equal, round and reactive pupils present Extrem: General: no clubbing, cya
--- NOTE | 2020-09-30 11:56 | PCNWS ---
Weekly nutritional screen. Patient is tolerating current diet-DBCC with adequate intake-100% of trays. No weight loss reported. No nutritional needs at this time.
[2020-09-30 12:23] LABS: Glucose Point of Care 115 (65-105)
[2020-09-30 17:22] LABS: Glucose Point of Care 262 (65-105)
[2020-09-30] MEDS: INSULIN ASPART (*BKC) 100 UNITS/ML SUB-Q (17:27)
[2020-09-30] MEDS: INSULIN GLARGINE (*BKC) 100 UNITS/ML 30 UNITS SUB-Q (20:29)
[2020-09-30] MEDS: MIRTAZAPINE 15 MG TABLET PO (20:29)
[2020-09-30 21:05] LABS: Glucose Point of Care 250 (65-105)
[2020-10-01] VITALS (20 sets, daily range): BP systolic 76–106; BP diastolic 38–53; PULSE 58–79; RESP 16–20; TEMP 36.2–36.4; O2SAT 82–98
[2020-10-01] MEDS: HYDROcodone/acetaminophen (*CRX) 5-325 MG TABLET 1 TAB PO ×2 (02:06→11:34)
[2020-10-01 06:22] LABS: Hematocrit 25.9 % (37.0-47.0); Hemoglobin 7.4 g/dL (12.0-15.0); Mean Corpuscular HGB Conc 28.6 g/dl (32-36); Mean Corpuscular Hemoglobin 27.6 pg (26-34); Mean Corpuscular Volume 96.6 fl (80-100); Mean Platelet Volume 11.2 fl (7.4-10.4); Platelet Count Result 226 k/mm3 (150-375); Red Blood Count 2.68 M/mm3 (4.2-5.4); Red Cell Distribution Width 16.5 % (11.5-14.5); White Blood Count 9.5 K/mm3 (4.5-10.0)
[2020-10-01 06:50] LABS: Alanine Aminotransferase 14 U/L (4-35); Albumin Level 2.4 g/dL (3.5-5.1); Alkaline Phosphatase 377 U/L (38-126); Aspartate Amino Transferase 50 U/L (14-36); Bilirubin,Total 0.5 mg/dL (0.2-1.3); Blood Urea Nitrogen 33 mg/dL (7-17); Calcium 7.4 mg/dL (8.4-10.2); Carbon Dioxide > 40 mmol/L (22-30); Chloride 91 mmol/L (98-107); Estimated CRCL calculation 34 ml/min; Estimated Glomerular Filt Rate 36; Glucose 132 mg/dL (65-105); Potassium 3.4 mmol/L (3.4-5.0); Sodium 134 mmol/L (137-145)
[2020-10-01 07:49] LABS: Glucose Point of Care 114 (65-105)
[2020-10-01] MEDS: SODIUM CHLORIDE 0.9% IV 1,000 ML 100 ML IV CONT (08:05)
[2020-10-01] MEDS: ATORVASTATIN 40 MG TABLET PO (08:06)
[2020-10-01] MEDS: ASPIRIN 325 MG TABLET PO (08:06)
[2020-10-01] MEDS: lisinopriL 2.5 MG TABLET PO (08:06)
[2020-10-01] MEDS: AMIODARONE HCL 200 MG TABLET PO (08:06)
[2020-10-01] MEDS: carvediloL 12.5 MG TABLET PO ×2 (08:06→21:54)
[2020-10-01] MEDS: FUROSEMIDE 40 MG TABLET PO (08:06)
[2020-10-01] MEDS: GABAPENTIN 400 MG CAPSULE PO ×2 (08:06→17:19)
[2020-10-01] MEDS: CLOPIDOGREL BISULFATE 75 MG TABLET PO (08:06)
[2020-10-01] MEDS: PANTOPRAZOLE SODIUM IV 40 MG VIAL IV PUSH (08:07)
[2020-10-01] MEDS: ENOXAPARIN 40 MG/0.4 ML SYRINGE SUB-Q (08:07)
[2020-10-01] MEDS: TOLNAFTATE 1% POWDER 45 GM BTL 1 APPLIC TOPICAL ×2 (08:08→21:55)
[2020-10-01] MEDS: INSULIN ASPART (*BKC) 100 UNITS/ML 8 UNITS SUB-Q (08:13)
--- NOTE | 2020-10-01 09:47 | PM.PNORT ---
Progress Note: A&P Assessment and Plan (1) S/P BKA (below knee amputation): Qualifiers: Laterality: left Qualified Code(s): Z89.512 - Acquired absence of left leg below knee Code(s): Z89.519 - Acquired absence of unspecified leg below knee Status: Acute Assessment and Plan: postoperative day 3 left below-knee amputation. Wound VAC dressing change yesterday. Pain medication and control adjusted. Continue PT/ OT. Disposition when stable. Subjective Subjective Date/Time Seen: 10/01/20 09:00 Patient states pain left leg overnight. Better this morning. Wound VAC change Yesterday. Exam Const: General: comfortable (appears comfortable. Rating pain 9/10 ) and no acute distress Resp: Effort & Inspection: normal respiratory effort Cardio: Rate: regular rate Rhythm: regular rhythm GI: Inspection: non-distended GI Palp: Yes Soft to palpation and No Tenderness to palpation present (GI) Urinary Catheter: Urinary Catheter: patent and draining and urine clear Skin: Wounds: wounds noted (Left BKA incision/dressing c/d/i. Wound VAC in place ) Neuro: General: No gait normal (NWB ) Cognition (Neuro): normal cognition Extrem: Right lower extremity: knee (BKA ) Left lower extremity: knee (BKA ) Other: Left BKA. Dressing c/d/i. WOUND VAC in place and functioning well. Serosanguineous drainage in chamber. Thigh soft. Sensation intact. Psych: Mental Status: mental status grossly normal Thought content: Yes Normal thought content present Objective Data Vital Signs Vital Signs: Vital Signs - 24 hr 09/30/20 12:00 09/30/20 14:00 09/30/20 16:00 Temperature 97.6 F Pulse Rate 66 70 69 Respiratory Rate 24 H Blood Pressure 103/30 L Pulse Oximetry 98 09/30/20 20:00 09/30/20 20:25 09/30/20 20:59 Temperature Pulse Rate 67 67 Respiratory Rate Blood Pressure Pulse Oximetry 99 09/30/20 21:47 10/01/20 00:00 10/01/20 04:00 Temperature 97.3 F L Pulse Rate 67 64 61 Respiratory Rate 20 Blood Pressure 105/44 L Pulse Oximetry 99 10/01/20 06:00 10/01/20 07:40 10/01/20 07:41 Temperature 97.1 F L Pulse Rate 62 Respiratory Rate 16 Blood Pressure 103/42 L Pulse Oximetry 98 97 97 10/01/20 07:56 10/01/20 08:00 10/01/20 08:06 Temperature Pulse Rate 61 62 Respiratory Rate Blood Pressure Pulse Oximetry 97 10/01/20 08:17 Temperature Pulse Rate Respiratory Rate Blood Pressure Pulse Oximetry 95 Intake/Output Intake/Output: Intake & Output 09/28/20 09/29/20 09/30/20 10/01/20 23:59 23:59 23:59 23:59 Intake Total 510 2250 2020 1340 Output Total 350 1250 700 250 Balance 160 1000 1320 1090 Meds/Results Medications: Active Medications Generic Name Dose Route Start Last Admin Trade Name Freq PRN Reason Stop Dose Admin Hydrocodone Bitart/Acetaminophen 1 tab 09/23/20 16:30 10/01/20 02:06 Hydrocodone/Acetaminophen (*Crx) 5-325 Mg Tablet PO 1 tab Q4H PRN Administration Pain Rated 4-6 Albuterol 2 puff 09/29/20 12:26 Albuterol Sulfate (*Sp) Aerosol 1 Puff INHALATION Q6HRT PRN Shortness Of Breath Amiodarone HCl 200 mg 09/30/20 08:00 10/01/20 08:06 Amiodarone Hcl 200 Mg Tablet PO 200 mg DAILY@0800 NEW Administration Aspirin 325 mg 09/24/20 12:50 10/01/20 08:06 Aspirin 325 Mg Tablet PO 325 mg DAILY@0800 NEW Administration Atorvastatin Calcium 40 mg 09/24/20 09:00 10/01/20 08:06 Atorvastatin 40 Mg Tablet PO 40 mg DAILY NEW Administration Carvedilol 12.5 mg 09/23/20 21:00 10/01/20 08:06 Carvedilol 12.5 Mg Tablet PO 12.5 mg Q12HR NEW Administration Clopidogrel Bisulfate 75 mg 09/30/20 09:00 10/01/20 08:06 Clopidogrel Bisulfate 75 Mg Tablet PO 75 mg QAM NEW Administration Dextrose 12.5 gm 09/24/20 06:30 Dextrose 50% 25 Gm/50 Ml Syringe IV PUSH PRN PRN Hypoglycemia Protocol Enoxaparin Sodium 40 mg 09/29/20 09:00
--- NOTE | 2020-10-01 10:02 | PM.PNCARD ---
Progress Note: A&P Assessment and Plan (1) Paroxysmal atrial fibrillation: Code(s): I48.0 - Paroxysmal atrial fibrillation Status: Acute (2) S/P BKA (below knee amputation): Qualifiers: Laterality: left Qualified Code(s): Z89.512 - Acquired absence of left leg below knee Code(s): Z89.519 - Acquired absence of unspecified leg below knee Status: Acute (3) Osteomyelitis of left foot: Qualifiers: Osteomyelitis type: other acute Qualified Code(s): M86.172 - Other acute osteomyelitis, left ankle and foot Code(s): M86.9 - Osteomyelitis, unspecified Status: Acute (4) NSTEMI (non-ST elevated myocardial infarction): Code(s): I21.4 - Non-ST elevation (NSTEMI) myocardial infarction Status: Acute Assessment and Plan: Echocardiogram showed normal left ventricular systolic function with calcified mitral valve, she seems to be stable from cardiac standpoint, would cont Plavix, and consider outpatient cardiac catheterization at a later stage which is otherwise stable, with no active infection. I talked to her about considering cardiac catheterization she would rather do it later, if she gets discharged I will arrange for outpatient catheterization in a week or 2 (5) Acute respiratory failure with hypoxia: Code(s): J96.01 - Acute respiratory failure with hypoxia Status: Acute (6) CHF exacerbation: Code(s): I50.9 - Heart failure, unspecified Status: Acute Assessment and Plan: Echo showed normal left ventricular systolic function but with evidence of diastolic dysfunction and pulmonary hypertensioEcho showed normal left ventricular systolic function but with evidence of diastolic dysfunction and pulmonary hypertension (7) Infected stasis ulcer of left lower extremity: Code(s): I83.229 - Varicose veins of left lower extremity with both ulcer of unspecified site and inflammation; L97.929 - Non-pressure chronic ulcer of unspecified part of left lower leg with unspecified severity Status: Acute Assessment and Plan: 83.229 - Varicose veins of left lower extremity with both ulcer of unspecified site and inflammation; L97.929 - Non-pressure chronic ulcer of unspecified part of left lower leg with unspecified severity Additional Plan Subjective Date/time seen: 10/01/20 10:02 She feels slightly better today, no chest pain. No more arrhythmia Exam Narrative: Exam Narrative: Awake alert oriented x3 not in acute distress Neck is supple no obvious JVD, no carotid bruit Chest: She has decreased breathing sound in the bases with bibasilar crackles noted Cardiovascular: Regular rate and rhythm, 2/6 systolic murmur noted left sternal border Abdomen: Soft nontender bowel sounds positive Extremities: Trace edema noted bilaterally, right leg with [id number] amputation, left leg below-knee amputation Objective Data Vital Signs Vital Signs: Vital Signs - 24 hr 09/30/20 12:00 09/30/20 14:00 09/30/20 16:00 Temperature 36.4 C Pulse Rate 66 70 69 Respiratory Rate 24 H Blood Pressure 103/30 L Pulse Oximetry 98 09/30/20 20:00 09/30/20 20:25 09/30/20 20:59 Temperature Pulse Rate 67 67 Respiratory Rate Blood Pressure Pulse Oximetry 99 09/30/20 21:47 10/01/20 00:00 10/01/20 04:00 Temperature 36.3 C L Pulse Rate 67 64 61 Respiratory Rate 20 Blood Pressure 105/44 L Pulse Oximetry 99 10/01/20 06:00 10/01/20 07:40 10/01/20 07:41 Temperature 36.2 C L Pulse Rate 62 Respiratory Rate 16 Blood Pressure 103/42 L Pulse Oximetry 98 97 97 10/01/20 07:56 10/01/20 08:00 10/01/20 08:06 Temperature Pulse Rate 61 62 Respiratory Rate Blood Pressure Pulse Oximetry 97 10/01/20 08:17 Temperature Pulse Rate Respiratory Rate Blood Pressure Pulse Oximetry 95 Intake/Output Intake/Output: Intake & Output 09/28/20 09/29/20 09/30/20 10/01/20 23:59 23:59
--- NOTE | 2020-10-01 12:00 | PC.NURSE ---
Patient blood sugar for lunch is 71, patient provided tray. Notified Ingrid as patient has 8U Novolog with meals to receive. Per Ingrid, d/c 8U and continue sliding scale orders.
[2020-10-01 13:02] LABS: Glucose Point of Care 74 (65-105)
[2020-10-01 13:02] LABS: Glucose Point of Care 71 (65-105)
[2020-10-01 13:30] LABS: Glucose Point of Care 107 (65-105)
--- NOTE | 2020-10-01 16:36 | PM.IMPN ---
Progress Note: A&P Assessment and Plan (1) S/P BKA (below knee amputation): Qualifiers: Laterality: left Qualified Code(s): Z89.512 - Acquired absence of left leg below knee Code(s): Z89.519 - Acquired absence of unspecified leg below knee Status: Acute Assessment and Plan: Underwent left BKA on 09/28/[address] Huerta. No immediate surgical complications. She tolerated the procedure well. Pain is well controlled at this time but noting intermittent episodes of sharp pains. Appreciate orthopedic recommendations Continue with PT and OT. Patient is working on transfers. Analgesics as needed Continue with wound VAC Continue Lindquist catheter. Care coordination following for SNF placement (2) Osteomyelitis of left foot: Qualifiers: Osteomyelitis type: other acute Qualified Code(s): M86.172 - Other acute osteomyelitis, left ankle and foot Code(s): M86.9 - Osteomyelitis, unspecified Status: Acute Assessment and Plan: Left calcaneal bone secondary to nonhealing diabetic foot ulcer. Recent hospitalization from 09/13/20-09/22/20 in which she underwent excisional debridement. Now s/p left BKA. See above. Infectious disease following for post-operative antibiotic recommendations. Input is appreciated. She received 4 doses of Ancef; discontinued on 09/29/[address] Tavarez's recommendation (3) Infected stasis ulcer of left lower extremity: Code(s): I83.229 - Varicose veins of left lower extremity with both ulcer of unspecified site and inflammation; L97.929 - Non-pressure chronic ulcer of unspecified part of left lower leg with unspecified severity Status: Acute Assessment and Plan: With gangrene and left foot cellulitis. On 09/13/20, wound culture of left foot had GBS isolate, as well as MRSA (suspected to be colonizer). Now s/p BKA as above. (4) NSTEMI (non-ST elevated myocardial infarction): Code(s): I21.4 - Non-ST elevation (NSTEMI) myocardial infarction Status: Acute Assessment and Plan: Elevated troponin upon presentation along with ST changes felt to be consistent with NSTEMI. She was started on heparin and transitioned to therapeutic lovenox which has now been discontinued. Echo showed normal LV systolic function. She is asymptomatic today. Cardiology following and input is appreciated. Continue aspirin Started on Plavix Monitor on telemetry Plan for outpatient catheterization in 1-2 weeks per cardiology (5) Acute respiratory failure with hypoxia: Code(s): J96.01 - Acute respiratory failure with hypoxia Status: Acute Assessment and Plan: Multifactorial secondary to COPD, CHF. Currently requiring 2 L O2 per nasal cannula, down from 3L yesterday. She was discharged on supplemental O2 at last hospital stay 09/24/20. Continue supplemental O2 as needed with goal saturation 90% or above. Wean to goal. Albuterol as needed (6) CHF exacerbation: Code(s): I50.9 - Heart failure, unspecified Status: Acute Assessment and Plan: Echo showed normal LV systolic function with evidence of diastolic dysfunction. She denies cough or SOB. She appears euvolemic on exam today. I will hold her lasix tomorrow as she had a slight bump in Cr and suspect she may have been overdiuresed and now a bit dry. IV Lasix discontinued 09/29 Monitor daily weights and I&O closely Heart healthy diet (7) Uncontrolled diabetes mellitus: Qualifiers: Diabetes mellitus type: type 2 Glycemic state: with hyperglycemia Qualified Code(s): E11.65 - Type 2 diabetes mellitus with hyperglycemia Code(s): E11.65 - Type 2 diabetes mellitus with hyperglycemia Status: Acute Assessment and Plan: Blood sugars have been poorly controlled with some readings up to 400. No evidence of DKA and anion gap is normal. Most recent A1c is 10.3. Blood sugars slightly improved following a
[2020-10-01 17:29] LABS: Hematocrit 26.6 % (37.0-47.0); Hemoglobin 7.7 g/dL (12.0-15.0)
[2020-10-01 17:29] LABS: Glucose Point of Care 188 (65-105)
[2020-10-01 18:47] LABS: Folic Acid 8.1 ng/mL (2.76->20)
[2020-10-01 19:16] LABS: Iron 16 ug/dL (37-170)
[2020-10-01 19:25] LABS: Percent Iron Saturation 7 % (20-50)
[2020-10-01] MEDS: INSULIN GLARGINE (*BKC) 100 UNITS/ML 30 UNITS SUB-Q (21:55)
[2020-10-01] MEDS: DOCUSATE SODIUM 100 MG CAPSULE PO (21:55)
[2020-10-01] MEDS: MIRTAZAPINE 15 MG TABLET PO (21:55)
[2020-10-01 23:55] LABS: Glucose Point of Care 196 (65-105)
[2020-10-02] VITALS (11 sets, daily range): BP systolic 96–115; BP diastolic 36–62; PULSE 56–82; RESP 15–20; TEMP 36.1–36.9; O2SAT 95–98
[2020-10-02] MEDS: SODIUM CHLORIDE 0.9% IV 1,000 ML 100 ML IV CONT ×2 (04:58→15:46)
[2020-10-02 06:31] LABS: Hematocrit 25.6 % (37.0-47.0); Hemoglobin 7.4 g/dL (12.0-15.0); Mean Corpuscular HGB Conc 28.9 g/dl (32-36); Mean Corpuscular Hemoglobin 27.4 pg (26-34); Mean Corpuscular Volume 94.8 fl (80-100); Mean Platelet Volume 11.7 fl (7.4-10.4); Platelet Count Result 234 k/mm3 (150-375); Red Cell Distribution Width 16.5 % (11.5-14.5); White Blood Count 9.4 K/mm3 (4.5-10.0)
[2020-10-02 06:52] LABS: Alanine Aminotransferase 17 U/L (4-35); Albumin Level 2.4 g/dL (3.5-5.1); Alkaline Phosphatase 501 U/L (38-126); Aspartate Amino Transferase 57 U/L (14-36); Bilirubin,Total 0.5 mg/dL (0.2-1.3); Blood Urea Nitrogen 44 mg/dL (7-17); Calcium 7.7 mg/dL (8.4-10.2); Carbon Dioxide > 40 mmol/L (22-30); Chloride 91 mmol/L (98-107); Estimated CRCL calculation 32 ml/min; Estimated Glomerular Filt Rate 34; Glucose 163 mg/dL (65-105); Potassium 3.6 mmol/L (3.4-5.0); Sodium 132 mmol/L (137-145)
[2020-10-02 07:32] LABS: Glucose Point of Care 156 (65-105)
[2020-10-02] MEDS: CLOPIDOGREL BISULFATE 75 MG TABLET PO (08:09)
[2020-10-02] MEDS: AMIODARONE HCL 200 MG TABLET PO (08:09)
[2020-10-02] MEDS: ASPIRIN 325 MG TABLET PO (08:09)
[2020-10-02] MEDS: GABAPENTIN 400 MG CAPSULE PO ×2 (08:09→16:35)
[2020-10-02] MEDS: ENOXAPARIN 40 MG/0.4 ML SYRINGE SUB-Q (08:10)
[2020-10-02] MEDS: polyethylene glycoL 3350 17 GM POWD.PACK PO (08:10)
[2020-10-02] MEDS: ATORVASTATIN 40 MG TABLET PO (08:10)
[2020-10-02] MEDS: PANTOPRAZOLE SODIUM IV 40 MG VIAL IV PUSH (08:10)
[2020-10-02] MEDS: DOCUSATE SODIUM 100 MG CAPSULE PO (08:10)
[2020-10-02] MEDS: lisinopriL 2.5 MG TABLET PO (08:10)
[2020-10-02] MEDS: TOLNAFTATE 1% POWDER 45 GM BTL 1 APPLIC TOPICAL ×2 (08:21→20:30)
--- NOTE | 2020-10-02 08:23 | PM.PNORT ---
Progress Note: A&P Assessment and Plan (1) S/P BKA (below knee amputation): Qualifiers: Laterality: left Qualified Code(s): Z89.512 - Acquired absence of left leg below knee Code(s): Z89.519 - Acquired absence of unspecified leg below knee Status: Acute Assessment and Plan: postoperative day 4 left below-knee amputation. Wound VAC dressing in place. Plan for change and evaluation tomorrow with possible removal. Pain medication and control adjusted. Continue PT/ OT. Disposition when stable. Subjective Subjective Date/Time Seen: 10/02/20 08:23 Patient awake. Still with phantom pain left foot as well as pain at the surgery site. Exam Const: General: comfortable (appears comfortable. Rating pain 9/10 ) and no acute distress Resp: Effort & Inspection: normal respiratory effort Cardio: Rate: regular rate Rhythm: regular rhythm GI: Inspection: non-distended GI Palp: Yes Soft to palpation and No Tenderness to palpation present (GI) Urinary Catheter: Urinary Catheter: patent and draining and urine clear Skin: Wounds: wounds noted (Left BKA incision/dressing c/d/i. Wound VAC in place ) Neuro: General: No gait normal (NWB ) Cognition (Neuro): normal cognition Extrem: Right lower extremity: knee (BKA ) Left lower extremity: knee (BKA ) Other: Left BKA. Dressing c/d/i. WOUND VAC in place and functioning well. Serosanguineous drainage in chamber. Thigh soft. Sensation intact. Psych: Mental Status: mental status grossly normal Thought content: Yes Normal thought content present Objective Data Vital Signs Vital Signs: Vital Signs - 24 hr 10/01/20 12:00 10/01/20 13:00 10/01/20 13:05 Temperature Pulse Rate 61 Respiratory Rate Blood Pressure Pulse Oximetry 82 L 94 10/01/20 14:00 10/01/20 16:00 10/01/20 20:00 Temperature 97.1 F L Pulse Rate 58 L 63 65 Respiratory Rate 18 Blood Pressure 76/38 L Pulse Oximetry 93 10/01/20 21:49 10/01/20 21:50 10/01/20 21:54 Temperature Pulse Rate 79 63 Respiratory Rate Blood Pressure Pulse Oximetry 92 10/01/20 22:00 10/02/20 00:00 10/02/20 04:00 Temperature 97.5 F L Pulse Rate 65 65 66 Respiratory Rate 20 Blood Pressure 106/53 L Pulse Oximetry 92 10/02/20 06:00 10/02/20 06:16 10/02/20 08:00 Temperature 98.4 F Pulse Rate 66 82 Respiratory Rate 20 Blood Pressure 115/62 Pulse Oximetry 97 95 10/02/20 08:09 10/02/20 08:10 Temperature Pulse Rate 69 69 Respiratory Rate Blood Pressure Pulse Oximetry Intake/Output Intake/Output: Intake & Output 09/29/20 09/30/20 10/01/20 10/02/20 23:59 23:59 23:59 23:59 Intake Total 2250 2019 1800 1550 Output Total 1250 700 400 550 Balance 1000 1320 1400 1000 Meds/Results Medications: Active Medications Generic Name Dose Route Start Last Admin Trade Name Freq PRN Reason Stop Dose Admin Hydrocodone Bitart/Acetaminophen 1 tab 09/23/20 16:30 10/01/20 11:34 Hydrocodone/Acetaminophen (*Crx) 5-325 Mg Tablet PO 1 tab Q4H PRN Administration Pain Rated 4-6 Albuterol 2 puff 09/29/20 12:26 Albuterol Sulfate (*Sp) Aerosol 1 Puff INHALATION Q6HRT PRN Shortness Of Breath Amiodarone HCl 200 mg 09/30/20 08:00 10/02/20 08:09 Amiodarone Hcl 200 Mg Tablet PO 200 mg DAILY@0800 NEW Administration Aspirin 325 mg 09/24/20 12:50 10/02/20 08:09 Aspirin 325 Mg Tablet PO 325 mg DAILY@0800 NEW Administration Atorvastatin Calcium 40 mg 09/24/20 09:00 10/02/20 08:10 Atorvastatin 40 Mg Tablet PO 40 mg DAILY NEW Administration Carvedilol 12.5 mg 09/23/20 21:00 10/02/20 08:10 Carvedilol 12.5 Mg Tablet PO 12.5 mg Q12HR NEW Administration Clopidogrel Bisulfate 75 mg 09/30/20 09:00 10/02/20 08:09 Clopidogrel Bisulfate 75 Mg Tablet PO 75 mg QAM NEW Administration Dextrose 12.5 gm 09/24/20 06:30 Dextrose 50% 25 Gm/50 Ml Syringe IV PUSH PRN PRN
[2020-10-02] MEDS: HYDROcodone/acetaminophen (*CRX) 5-325 MG TABLET 1 TAB PO (09:09)
--- NOTE | 2020-10-02 10:04 | PM.PNCARD ---
Progress Note: A&P Assessment and Plan (1) Paroxysmal atrial fibrillation: Code(s): I48.0 - Paroxysmal atrial fibrillation Status: Acute Assessment and Plan: Continue with full-dose aspirin, Plavix, and amiodarone as well as Coreg (2) S/P BKA (below knee amputation): Qualifiers: Laterality: left Qualified Code(s): Z89.512 - Acquired absence of left leg below knee Code(s): Z89.519 - Acquired absence of unspecified leg below knee Status: Acute (3) Osteomyelitis of left foot: Qualifiers: Osteomyelitis type: other acute Qualified Code(s): M86.172 - Other acute osteomyelitis, left ankle and foot Code(s): M86.9 - Osteomyelitis, unspecified Status: Acute (4) NSTEMI (non-ST elevated myocardial infarction): Code(s): I21.4 - Non-ST elevation (NSTEMI) myocardial infarction Status: Acute Assessment and Plan: Echocardiogram showed normal left ventricular systolic function with calcified mitral valve, she seems to be stable from cardiac standpoint, would cont Plavix, and consider outpatient cardiac catheterization at a later stage which is otherwise stable, with no active infection. I talked to her about considering cardiac catheterization she would rather do it later, if she gets discharged I will arrange for outpatient catheterization in a week or 2 (5) Acute respiratory failure with hypoxia: Code(s): J96.01 - Acute respiratory failure with hypoxia Status: Acute (6) CHF exacerbation: Code(s): I50.9 - Heart failure, unspecified Status: Acute Assessment and Plan: Echo showed normal left ventricular systolic function but with evidence of diastolic dysfunction and pulmonary hypertensioEcho showed normal left ventricular systolic function but with evidence of diastolic dysfunction and pulmonary hypertension (7) Infected stasis ulcer of left lower extremity: Code(s): I83.229 - Varicose veins of left lower extremity with both ulcer of unspecified site and inflammation; L97.929 - Non-pressure chronic ulcer of unspecified part of left lower leg with unspecified severity Status: Acute Assessment and Plan: 83.229 - Varicose veins of left lower extremity with both ulcer of unspecified site and inflammation; L97.929 - Non-pressure chronic ulcer of unspecified part of left lower leg with unspecified severity Additional Plan Subjective Date/time seen: 10/02/20 10:04 Feels better today, shortness breath is better no chest pain, had 1 episode of atrial fibrillation rapid ventricular response no symptoms. Currently she is on amiodarone and full-dose aspirin Exam Narrative: Exam Narrative: Awake alert oriented x3 not in acute distress Neck is supple no obvious JVD, no carotid bruit Chest: She has decreased breathing sound in the bases with bibasilar crackles noted Cardiovascular: Regular rate and rhythm, 2/6 systolic murmur noted left sternal border Abdomen: Soft nontender bowel sounds positive Extremities: Trace edema noted bilaterally, right leg with [id number] amputation, left leg below-knee amputation Objective Data Vital Signs Vital Signs: Vital Signs - 24 hr 10/01/20 12:00 10/01/20 13:00 10/01/20 13:05 Temperature Pulse Rate 61 Respiratory Rate Blood Pressure Pulse Oximetry 82 L 94 10/01/20 14:00 10/01/20 16:00 10/01/20 20:00 Temperature 36.2 C L Pulse Rate 58 L 63 65 Respiratory Rate 18 Blood Pressure 76/38 L Pulse Oximetry 93 10/01/20 21:49 10/01/20 21:50 10/01/20 21:54 Temperature Pulse Rate 79 63 Respiratory Rate Blood Pressure Pulse Oximetry 92 10/01/20 22:00 10/02/20 00:00 10/02/20 04:00 Temperature 36.4 C L Pulse Rate 65 65 66 Respiratory Rate 20 Blood Pressure 106/53 L Pulse Oximetry 92 10/02/20 06:00 10/02/20 06:16 10/02/20 08:00 Temperature 36.9 C Pulse Rate 66 82 69 Respiratory Rate 20 Blood Pressure 115/62 P
[2020-10-02] MEDS: FERROUS SULFATE 324 MG TABLET PO (10:35)
--- NOTE | 2020-10-02 11:31 | PM.IMPN ---
Progress Note: A&P Assessment and Plan (1) S/P BKA (below knee amputation): Qualifiers: Laterality: left Qualified Code(s): Z89.512 - Acquired absence of left leg below knee Code(s): Z89.519 - Acquired absence of unspecified leg below knee Status: Acute Assessment and Plan: Underwent left BKA on 09/28/[address] Huerta. No immediate surgical complications. She tolerated the procedure well. She is having some phantom limb pains but notes that this is improving. Appreciate orthopedic recommendations Continue with PT and OT. Patient is working on transfers. Analgesics as needed Continue with wound VAC Continue Lindquist catheter. Plan for voiding trial tomorrow. Care coordination following for SNF placement (2) Osteomyelitis of left foot: Qualifiers: Osteomyelitis type: other acute Qualified Code(s): M86.172 - Other acute osteomyelitis, left ankle and foot Code(s): M86.9 - Osteomyelitis, unspecified Status: Acute Assessment and Plan: Left calcaneal bone secondary to nonhealing diabetic foot ulcer. Recent hospitalization from 09/13/20-09/22/20 in which she underwent excisional debridement. Now s/p left BKA. See above. Infectious disease following for post-operative antibiotic recommendations. Input is appreciated. She received 4 doses of Ancef; discontinued on 09/29/[address] Tavarez's recommendation (3) Infected stasis ulcer of left lower extremity: Code(s): I83.229 - Varicose veins of left lower extremity with both ulcer of unspecified site and inflammation; L97.929 - Non-pressure chronic ulcer of unspecified part of left lower leg with unspecified severity Status: Acute Assessment and Plan: With gangrene and left foot cellulitis. On 09/13/20, wound culture of left foot had GBS isolate, as well as MRSA (suspected to be colonizer). Now s/p BKA as above. (4) NSTEMI (non-ST elevated myocardial infarction): Code(s): I21.4 - Non-ST elevation (NSTEMI) myocardial infarction Status: Acute Assessment and Plan: Elevated troponin upon presentation along with ST changes felt to be consistent with NSTEMI. She was started on heparin and transitioned to therapeutic lovenox which has now been discontinued. Echo showed normal LV systolic function. She is asymptomatic today. Cardiology following and input is appreciated. Continue aspirin Started on Plavix Monitor on telemetry Plan for outpatient catheterization in 1-2 weeks per cardiology (5) Acute respiratory failure with hypoxia: Code(s): J96.01 - Acute respiratory failure with hypoxia Status: Acute Assessment and Plan: Multifactorial secondary to COPD, CHF. Currently requiring 1 L O2 per nasal cannula, down from 3L yesterday. She was discharged on supplemental O2 at last hospital stay 09/24/20. Continue supplemental O2 as needed with goal saturation 90% or above. Wean to goal. Albuterol as needed (6) CHF exacerbation: Code(s): I50.9 - Heart failure, unspecified Status: Acute Assessment and Plan: Echo showed normal LV systolic function with evidence of diastolic dysfunction. She denies cough or SOB. She appears euvolemic on exam today. Hold lasix. She had a slight bump in Cr and suspect she may have been overdiuresed and now a bit dry. IV Lasix discontinued 09/29 Monitor daily weights and I&O closely Heart healthy diet (7) Uncontrolled diabetes mellitus: Qualifiers: Diabetes mellitus type: type 2 Glycemic state: with hyperglycemia Qualified Code(s): E11.65 - Type 2 diabetes mellitus with hyperglycemia Code(s): E11.65 - Type 2 diabetes mellitus with hyperglycemia Status: Acute Assessment and Plan: Blood sugars have been poorly controlled with some readings up to 400. No evidence of DKA and anion gap is normal. Most recent A1c is 10.3. Blood sugars improved following addition of l
[2020-10-02 11:52] LABS: Glucose Point of Care 201 (65-105)
[2020-10-02] MEDS: INSULIN ASPART (*BKC) 100 UNITS/ML SUB-Q (12:01)
[2020-10-02 14:44] LABS: Glucose Point of Care 213 (65-105)
[2020-10-02 17:33] LABS: Glucose Point of Care 160 (65-105)
[2020-10-02] MEDS: INSULIN GLARGINE (*BKC) 100 UNITS/ML 30 UNITS SUB-Q (20:27)
[2020-10-02] MEDS: SENNA/DOCUSATE SODIUM TABLET 1 TAB PO (20:28)
[2020-10-02 21:07] LABS: Glucose Point of Care 253 (65-105)
[2020-10-03] VITALS (11 sets, daily range): BP systolic 100–108; BP diastolic 40–63; PULSE 59–65; RESP 16–20; TEMP 33.3–36.9; O2SAT 93–99
[2020-10-03] MEDS: SODIUM CHLORIDE 0.9% IV 1,000 ML 100 ML IV CONT ×3 (03:28→23:37)
[2020-10-03 05:44] LABS: Hematocrit 26.6 % (37.0-47.0); Hemoglobin 7.8 g/dL (12.0-15.0); Mean Corpuscular HGB Conc 29.3 g/dl (32-36); Mean Corpuscular Hemoglobin 27.4 pg (26-34); Mean Corpuscular Volume 93.3 fl (80-100); Mean Platelet Volume 11.5 fl (7.4-10.4); Platelet Count Result 246 k/mm3 (150-375); Red Blood Count 2.85 M/mm3 (4.2-5.4); Red Cell Distribution Width 16.7 % (11.5-14.5); White Blood Count 7.7 K/mm3 (4.5-10.0)
[2020-10-03 05:56] LABS: Alanine Aminotransferase 18 U/L (4-35); Albumin Level 2.5 g/dL (3.5-5.1); Alkaline Phosphatase 582 U/L (38-126); Anion Gap 4 mmol/L (8-16); Aspartate Amino Transferase 59 U/L (14-36); Bilirubin,Total 0.6 mg/dL (0.2-1.3); Blood Urea Nitrogen 45 mg/dL (7-17); Calcium 7.7 mg/dL (8.4-10.2); Carbon Dioxide 36 mmol/L (22-30); Chloride 95 mmol/L (98-107); Estimated CRCL calculation 37 ml/min; Estimated Glomerular Filt Rate 40; Glucose 243 mg/dL (65-105); Potassium 4.2 mmol/L (3.4-5.0); Sodium 135 mmol/L (137-145)
[2020-10-03 07:43] LABS: Glucose Point of Care 191 (65-105)
[2020-10-03] MEDS: ASPIRIN 325 MG TABLET PO (09:04)
[2020-10-03] MEDS: GABAPENTIN 400 MG CAPSULE PO ×2 (09:04→17:14)
[2020-10-03] MEDS: ATORVASTATIN 40 MG TABLET PO (09:04)
[2020-10-03] MEDS: polyethylene glycoL 3350 17 GM POWD.PACK PO (09:04)
[2020-10-03] MEDS: CLOPIDOGREL BISULFATE 75 MG TABLET PO (09:04)
[2020-10-03] MEDS: DOCUSATE SODIUM 100 MG CAPSULE PO ×2 (09:04→21:03)
[2020-10-03] MEDS: PANTOPRAZOLE SODIUM IV 40 MG VIAL IV PUSH (09:05)
[2020-10-03] MEDS: carvediloL 12.5 MG TABLET PO ×2 (09:05→21:03)
[2020-10-03] MEDS: ENOXAPARIN 40 MG/0.4 ML SYRINGE SUB-Q (09:05)
[2020-10-03] MEDS: AMIODARONE HCL 200 MG TABLET PO (09:05)
[2020-10-03] MEDS: FERROUS SULFATE 324 MG TABLET PO (09:05)
[2020-10-03] MEDS: HYDROcodone/acetaminophen (*CRX) 5-325 MG TABLET 1 TAB PO (09:12)
[2020-10-03] MEDS: TOLNAFTATE 1% POWDER 45 GM BTL 1 APPLIC TOPICAL ×2 (09:13→21:11)
--- NOTE | 2020-10-03 09:31 | PM.PNORT ---
Progress Note: A&P Assessment and Plan (1) S/P BKA (below knee amputation): Qualifiers: Laterality: left Qualified Code(s): Z89.512 - Acquired absence of left leg below knee Code(s): Z89.519 - Acquired absence of unspecified leg below knee Status: Acute Assessment and Plan: POD #5: Left below-knee amputation. Wound VAC removed. New dressing orders in place. Continue pain control. PT/OT. Elevate b/l LE. Dressing to be changed BID. Potential for reapplication of wound VAC but will determine after 2nd dressing change. Dispo: SNF when medically stable. Follow up in [facility] wound clinic. Subjective Subjective Date/Time Seen: 10/03/20 09:31 Patient awake/alert. No new complaints. Some discomfort with wound VAC. Review of Systems Review of Systems: All systems reviewed & are unremarkable except as noted in HPI and below Exam Const: General: comfortable (appears comfortable. Rating pain 9/10 ) and no acute distress Resp: Effort & Inspection: normal respiratory effort Cardio: Rate: regular rate Rhythm: regular rhythm GI: Inspection: non-distended GI Palp: Yes Soft to palpation and No Tenderness to palpation present (GI) Urinary Catheter: Urinary Catheter: patent and draining and urine clear Skin: Wounds: wounds noted (Left BKA incision/dressing c/d/i. Wound VAC in place ) Neuro: General: No gait normal (NWB ) Cognition (Neuro): normal cognition Extrem: Right lower extremity: knee (BKA ) Left lower extremity: knee (BKA ) Other: Wound VAC removed. Left BKA with incision well approximated. Serosanguineous drainage. Thigh soft. Sensation intact. Wound dressed with Xeroform, gauze, kerlex and ABD pads. Psych: Mental Status: mental status grossly normal Thought content: Yes Normal thought content present Objective Data Vital Signs Vital Signs: Vital Signs - 24 hr 10/02/20 12:00 10/02/20 14:00 10/02/20 16:00 Temperature 36.1 C L Pulse Rate 67 59 L 56 L Respiratory Rate 15 Blood Pressure 96/36 L Pulse Oximetry 98 10/02/20 20:00 10/02/20 21:53 10/03/20 00:00 Temperature 36.3 C L Pulse Rate 59 L 59 L 59 L Respiratory Rate 20 20 Blood Pressure 101/38 L Pulse Oximetry 97 97 10/03/20 04:00 10/03/20 06:00 10/03/20 07:52 Temperature 36.9 C Pulse Rate 63 63 Respiratory Rate 18 Blood Pressure 106/40 L Pulse Oximetry 94 93 10/03/20 09:05 Temperature Pulse Rate 64 Respiratory Rate Blood Pressure Pulse Oximetry Intake/Output Intake/Output: Intake & Output 09/30/20 10/01/20 10/02/20 10/03/20 23:59 23:59 23:59 23:59 Intake Total 2020 1800 3370 1200 Output Total 700 400 950 400 Balance 1320 1400 2420 800 Meds/Results Medications: Active Medications Generic Name Dose Route Start Last Admin Trade Name Freq PRN Reason Stop Dose Admin Hydrocodone Bitart/Acetaminophen 1 tab 09/23/20 16:30 10/03/20 09:12 Hydrocodone/Acetaminophen (*Crx) 5-325 Mg Tablet PO 1 tab Q4H PRN Administration Pain Rated 4-6 Albuterol 2 puff 09/29/20 12:26 Albuterol Sulfate (*Sp) Aerosol 1 Puff INHALATION Q6HRT PRN Shortness Of Breath Amiodarone HCl 200 mg 09/30/20 08:00 10/03/20 09:05 Amiodarone Hcl 200 Mg Tablet PO 200 mg DAILY@0800 NEW Administration Aspirin 325 mg 09/24/20 12:50 10/03/20 09:04 Aspirin 325 Mg Tablet PO 325 mg DAILY@0800 NEW Administration Atorvastatin Calcium 40 mg 09/24/20 09:00 10/03/20 09:04 Atorvastatin 40 Mg Tablet PO 40 mg DAILY NEW Administration Carvedilol 12.5 mg 09/23/20 21:00 10/03/20 09:10 Carvedilol 12.5 Mg Tablet PO Not Given Q12HR NEW Clopidogrel Bisulfate 75 mg 09/30/20 09:00 10/03/20 09:04 Clopidogrel Bisulfate 75 Mg Tablet PO 75 mg QAM NEW Administration Dextrose 12.5 gm 09/24/20 06:30 Dextrose 50% 25 Gm/50 Ml Syringe IV PUSH PRN PRN Hypoglycemia Protocol Docusate Sodium 100 mg 10/01/20 21:00 1
[2020-10-03] MEDS: INSULIN ASPART (*BKC) 100 UNITS/ML SUB-Q ×2 (11:53→17:15)
[2020-10-03 12:01] LABS: Glucose Point of Care 245 (65-105)
--- NOTE | 2020-10-03 14:23 | PM.PNCARD ---
Progress Note: A&P Assessment and Plan (1) Paroxysmal atrial fibrillation: Code(s): I48.0 - Paroxysmal atrial fibrillation Status: Acute Assessment and Plan: Continue with full-dose aspirin, Plavix, and amiodarone as well as Coreg (2) S/P BKA (below knee amputation): Qualifiers: Laterality: left Qualified Code(s): Z89.512 - Acquired absence of left leg below knee Code(s): Z89.519 - Acquired absence of unspecified leg below knee Status: Acute (3) Osteomyelitis of left foot: Qualifiers: Osteomyelitis type: other acute Qualified Code(s): M86.172 - Other acute osteomyelitis, left ankle and foot Code(s): M86.9 - Osteomyelitis, unspecified Status: Acute (4) NSTEMI (non-ST elevated myocardial infarction): Code(s): I21.4 - Non-ST elevation (NSTEMI) myocardial infarction Status: Acute Assessment and Plan: Echocardiogram showed normal left ventricular systolic function with calcified mitral valve, she seems to be stable from cardiac standpoint, would cont Plavix, and consider outpatient cardiac catheterization at a later stage which is otherwise stable, with no active infection. I talked to her about considering cardiac catheterization she would rather do it later, if she gets discharged I will arrange for outpatient catheterization in a week or 2 (5) Acute respiratory failure with hypoxia: Code(s): J96.01 - Acute respiratory failure with hypoxia Status: Acute (6) CHF exacerbation: Code(s): I50.9 - Heart failure, unspecified Status: Acute Assessment and Plan: Echo showed normal left ventricular systolic function but with evidence of diastolic dysfunction and pulmonary hypertensioEcho showed normal left ventricular systolic function but with evidence of diastolic dysfunction and pulmonary hypertension (7) Infected stasis ulcer of left lower extremity: Code(s): I83.229 - Varicose veins of left lower extremity with both ulcer of unspecified site and inflammation; L97.929 - Non-pressure chronic ulcer of unspecified part of left lower leg with unspecified severity Status: Acute Assessment and Plan: 83.229 - Varicose veins of left lower extremity with both ulcer of unspecified site and inflammation; L97.929 - Non-pressure chronic ulcer of unspecified part of left lower leg with unspecified severity Additional Plan Subjective Date/time seen: 10/03/20 14:23 She feels fair today, no SOB, no chest pain Exam Narrative: Exam Narrative: Awake alert oriented x3 not in acute distress Neck is supple no obvious JVD, no carotid bruit Chest: She has decreased breathing sound in the bases with bibasilar crackles noted Cardiovascular: Regular rate and rhythm, 2/6 systolic murmur noted left sternal border Abdomen: Soft nontender bowel sounds positive Extremities: Trace edema noted bilaterally, right leg with [id number] amputation, left leg below-knee amputation Objective Data Vital Signs Vital Signs: Vital Signs - 24 hr 10/02/20 16:00 10/02/20 20:00 10/02/20 21:53 Temperature 36.3 C L Pulse Rate 56 L 59 L 59 L Respiratory Rate 20 20 Blood Pressure 101/38 L Pulse Oximetry 97 97 10/03/20 00:00 10/03/20 04:00 10/03/20 06:00 Temperature 36.9 C Pulse Rate 59 L 63 63 Respiratory Rate 18 Blood Pressure 106/40 L Pulse Oximetry 94 10/03/20 07:52 10/03/20 08:00 10/03/20 09:05 Temperature Pulse Rate 62 64 Respiratory Rate Blood Pressure Pulse Oximetry 93 10/03/20 09:54 10/03/20 12:00 Temperature Pulse Rate 64 65 Respiratory Rate Blood Pressure 108/61 Pulse Oximetry Intake/Output Intake/Output: Intake & Output 09/30/20 10/01/20 10/02/20 10/03/20 23:59 23:59 23:59 23:59 Intake Total 2019 1800 3370 2680 Output Total 700 400 950 500 Balance 1320 1400 2420 2180 Meds/Results Medications: Active Medications Generic Name Dose Route Start Last
--- NOTE | 2020-10-03 15:01 | PM.IMPN ---
Progress Note: A&P Assessment and Plan (1) S/P BKA (below knee amputation): Qualifiers: Laterality: left Qualified Code(s): Z89.512 - Acquired absence of left leg below knee Code(s): Z89.519 - Acquired absence of unspecified leg below knee Status: Acute Assessment and Plan: Underwent left BKA on 09/28/[address] Huerta. No immediate surgical complications. She tolerated the procedure well. She is having some phantom limb pains but notes that this is improving. Appreciate orthopedic recommendations Continue with PT and OT. Patient is working on transfers. Analgesics as needed Wound VAC removed today. Continue with dressing changes per orthopedic surgery. Considering replacement of wound vac. Lindquist catheter removed today. Bladder scan following first void. Care coordination following for SNF placement (2) Osteomyelitis of left foot: Qualifiers: Osteomyelitis type: other acute Qualified Code(s): M86.172 - Other acute osteomyelitis, left ankle and foot Code(s): M86.9 - Osteomyelitis, unspecified Status: Acute Assessment and Plan: Left calcaneal bone secondary to nonhealing diabetic foot ulcer. Recent hospitalization from 09/13/20-09/22/20 in which she underwent excisional debridement. Now s/p left BKA. See above. Infectious disease following for post-operative antibiotic recommendations. Input is appreciated. She received 4 doses of Ancef; discontinued on 09/29/[address] Tavarez's recommendation (3) Infected stasis ulcer of left lower extremity: Code(s): I83.229 - Varicose veins of left lower extremity with both ulcer of unspecified site and inflammation; L97.929 - Non-pressure chronic ulcer of unspecified part of left lower leg with unspecified severity Status: Acute Assessment and Plan: With gangrene and left foot cellulitis. On 09/13/20, wound culture of left foot had GBS isolate, as well as MRSA (suspected to be colonizer). Now s/p BKA as above. (4) NSTEMI (non-ST elevated myocardial infarction): Code(s): I21.4 - Non-ST elevation (NSTEMI) myocardial infarction Status: Acute Assessment and Plan: Elevated troponin upon presentation along with ST changes felt to be consistent with NSTEMI. She was started on heparin and transitioned to therapeutic lovenox which has now been discontinued. Echo showed normal LV systolic function. She is asymptomatic today. Cardiology following and input is appreciated. Continue aspirin and recently started Plavix. Plan for outpatient catheterization in 1-2 weeks per cardiology (5) Acute respiratory failure with hypoxia: Code(s): J96.01 - Acute respiratory failure with hypoxia Status: Acute Assessment and Plan: Multifactorial secondary to COPD, CHF. Currently requiring 2 L O2 per nasal cannula. She was discharged on supplemental O2 at last hospital stay 09/24/20 (though I am unsure at what setting). Continue supplemental O2 as needed with goal saturation 90% or above. Wean to goal. Albuterol as needed (6) CHF exacerbation: Code(s): I50.9 - Heart failure, unspecified Status: Acute Assessment and Plan: Echo showed normal LV systolic function with evidence of diastolic dysfunction. She denies cough or SOB. She appears euvolemic on exam today. Hold PO lasix. She had a slight bump in Cr and suspect she may have been overdiuresed and now a bit dry. IV Lasix discontinued 09/29 Monitor daily weights and I&O closely Heart healthy diet (7) Uncontrolled diabetes mellitus: Qualifiers: Diabetes mellitus type: type 2 Glycemic state: with hyperglycemia Qualified Code(s): E11.65 - Type 2 diabetes mellitus with hyperglycemia Code(s): E11.65 - Type 2 diabetes mellitus with hyperglycemia Status: Acute Assessment and Plan: Blood sugars have been poorly controlled with some readings up to 400. No evidence
[2020-10-03] MEDS: MAGNESIUM HYDROXIDE SUSP 30 ML UDC PO (15:14)
[2020-10-03 17:29] LABS: Glucose Point of Care 214 (65-105)
[2020-10-03] MEDS: MIRTAZAPINE 15 MG TABLET PO (21:03)
[2020-10-03] MEDS: SENNA/DOCUSATE SODIUM TABLET 1 TAB PO (21:03)
[2020-10-03] MEDS: INSULIN GLARGINE (*BKC) 100 UNITS/ML 35 UNITS SUB-Q (21:04)
[2020-10-03 21:26] LABS: Glucose Point of Care 230 (65-105)
[2020-10-04] VITALS (7 sets, daily range): BP systolic 110–120; BP diastolic 36–46; PULSE 54–64; RESP 18–20; TEMP 36–36.4; O2SAT 92–98
[2020-10-04 05:47] LABS: Hemoglobin 7.8 g/dL (12.0-15.0); Mean Corpuscular HGB Conc 28.9 g/dl (32-36); Mean Corpuscular Hemoglobin 27.5 pg (26-34); Mean Corpuscular Volume 95.1 fl (80-100); Mean Platelet Volume 11.5 fl (7.4-10.4); Platelet Count Result 248 k/mm3 (150-375); Red Blood Count 2.84 M/mm3 (4.2-5.4); Red Cell Distribution Width 16.7 % (11.5-14.5); White Blood Count 6.6 K/mm3 (4.5-10.0)
[2020-10-04 06:07] LABS: Anion Gap 4 mmol/L (8-16); Blood Urea Nitrogen 47 mg/dL (7-17); Calcium 7.7 mg/dL (8.4-10.2); Carbon Dioxide 35 mmol/L (22-30); Chloride 95 mmol/L (98-107); Estimated CRCL calculation 44 ml/min; Estimated Glomerular Filt Rate 48; Glucose 194 mg/dL (65-105); Potassium 3.9 mmol/L (3.4-5.0); Sodium 134 mmol/L (137-145)
[2020-10-04] MEDS: polyethylene glycoL 3350 17 GM POWD.PACK PO (08:30)
[2020-10-04] MEDS: PANTOPRAZOLE SODIUM IV 40 MG VIAL IV PUSH (08:30)
[2020-10-04] MEDS: ASPIRIN 325 MG TABLET PO (08:33)
[2020-10-04] MEDS: CLOPIDOGREL BISULFATE 75 MG TABLET PO (08:33)
[2020-10-04] MEDS: FERROUS SULFATE 324 MG TABLET PO (08:33)
[2020-10-04] MEDS: carvediloL 12.5 MG TABLET PO ×2 (08:33→20:29)
[2020-10-04] MEDS: ATORVASTATIN 40 MG TABLET PO (08:33)
[2020-10-04] MEDS: lisinopriL 2.5 MG TABLET PO (08:33)
[2020-10-04] MEDS: DOCUSATE SODIUM 100 MG CAPSULE PO ×2 (08:33→20:28)
[2020-10-04] MEDS: GABAPENTIN 400 MG CAPSULE PO ×2 (08:33→18:45)
[2020-10-04] MEDS: TOLNAFTATE 1% POWDER 45 GM BTL 1 APPLIC TOPICAL ×2 (08:34→20:28)
[2020-10-04] MEDS: AMIODARONE HCL 200 MG TABLET PO (08:34)
[2020-10-04] MEDS: ENOXAPARIN 40 MG/0.4 ML SYRINGE SUB-Q (08:34)
[2020-10-04] MEDS: SODIUM CHLORIDE 0.9% IV 1,000 ML 100 ML IV CONT (08:44)
--- NOTE | 2020-10-04 08:47 | PM.PNORT ---
Progress Note: A&P Assessment and Plan (1) S/P BKA (below knee amputation): Qualifiers: Laterality: left Qualified Code(s): Z89.512 - Acquired absence of left leg below knee Code(s): Z89.519 - Acquired absence of unspecified leg below knee Status: Acute Assessment and Plan: POD #6: Left below-knee amputation. Change dressing daily. Apply Xeroform/gauze/kerlex and cover dry. Continue pain control. PT/OT. Elevate b/l LE. Dressing to be changed daily now as drainage is approved. Will refrain from reapplication of wound VAC at this time. Dispo: SNF when medically stable. Follow up scheduled for suture removal. Subjective Subjective Date/Time Seen: 10/04/20 08:47 No new complaints. Pain well controlled. Review of Systems Review of Systems: All systems reviewed & are unremarkable except as noted in HPI and below Exam Const: General: comfortable and no acute distress Resp: Effort & Inspection: normal respiratory effort Cardio: Rate: regular rate Rhythm: regular rhythm GI: Inspection: non-distended GI Palp: Yes Soft to palpation and No Tenderness to palpation present (GI) Urinary Catheter: Urinary Catheter: patent and draining and urine clear Skin: Wounds: wounds noted (Left BKA incision/dressing c/d/i. Wound VAC in place ) Neuro: General: No gait normal (NWB ) Cognition (Neuro): normal cognition Extrem: Right lower extremity: knee (BKA ) Left lower extremity: knee (BKA ) Other: Left BKA with incision well approximated. Mild serosanguineous drainage, improved from yesterday. Slight redness to the stump which is relieved with elevation. Mild tenderness over the lateral aspect of the distal leg. Thigh soft. Sensation intact. Wound dressed with Xeroform, gauze, kerlex and ABD pads. Psych: Mental Status: mental status grossly normal Thought content: Yes Normal thought content present Objective Data Vital Signs Vital Signs: Vital Signs - 24 hr 10/03/20 09:05 10/03/20 09:54 10/03/20 12:00 Temperature Pulse Rate 64 64 65 Respiratory Rate Blood Pressure 108/61 Pulse Oximetry 10/03/20 14:00 10/03/20 21:03 10/03/20 22:00 Temperature 33.3 C L 36.7 C Pulse Rate 61 60 60 Respiratory Rate 16 20 Blood Pressure 106/47 L 100/63 Pulse Oximetry 97 99 10/04/20 06:00 10/04/20 08:33 10/04/20 08:34 Temperature 36.3 C L Pulse Rate 62 60 60 Respiratory Rate 20 Blood Pressure 120/46 L Pulse Oximetry 98 Intake/Output Intake/Output: Intake & Output 10/01/20 10/02/20 10/03/20 10/04/20 23:59 23:59 23:59 23:59 Intake Total 1800 3370 4550 1000 Output Total 400 950 500 500 Balance 1400 2420 4050 500 Meds/Results Medications: Active Medications Generic Name Dose Route Start Last Admin Trade Name Freq PRN Reason Stop Dose Admin Hydrocodone Bitart/Acetaminophen 1 tab 09/23/20 16:30 10/03/20 09:12 Hydrocodone/Acetaminophen (*Crx) 5-325 Mg Tablet PO 1 tab Q4H PRN Administration Pain Rated 4-6 Albuterol 2 puff 09/29/20 12:26 Albuterol Sulfate (*Sp) Aerosol 1 Puff INHALATION Q6HRT PRN Shortness Of Breath Amiodarone HCl 200 mg 09/30/20 08:00 10/04/20 08:34 Amiodarone Hcl 200 Mg Tablet PO 200 mg DAILY@0800 NEW Administration Aspirin 325 mg 09/24/20 12:50 10/04/20 08:33 Aspirin 325 Mg Tablet PO 325 mg DAILY@0800 NEW Administration Atorvastatin Calcium 40 mg 09/24/20 09:00 10/04/20 08:33 Atorvastatin 40 Mg Tablet PO 40 mg DAILY NEW Administration Carvedilol 12.5 mg 09/23/20 21:00 10/04/20 08:33 Carvedilol 12.5 Mg Tablet PO 12.5 mg Q12HR NEW Administration Clopidogrel Bisulfate 75 mg 09/30/20 09:00 10/04/20 08:33 Clopidogrel Bisulfate 75 Mg Tablet PO 75 mg QAM NEW Administration Dextrose 12.5 gm 09/24/20 06:30 Dextrose 50% 25 Gm/50 Ml Syringe IV PUSH PRN PRN Hypoglycemia Protocol Docusate Sodium 100 mg 10/01/20 21:00
[2020-10-04 08:58] LABS: Glucose Point of Care 192 (65-105)
--- NOTE | 2020-10-04 10:12 | PCOTNOTE ---
Patient declined OT treatment stating that she is too tired from her earlier therapy treatment. Pt states you can try again later . Will continue per POC.
[2020-10-04 14:07] LABS: Glucose Point of Care 249 (65-105)
--- NOTE | 2020-10-04 15:30 | PM.PNCARD ---
Progress Note: A&P Assessment and Plan (1) Paroxysmal atrial fibrillation: Code(s): I48.0 - Paroxysmal atrial fibrillation Status: Acute Assessment and Plan: - Continue with full-dose aspirin, Plavix, and amiodarone as well as Coreg. - She is currently in normal sinus rhythm. (2) S/P BKA (below knee amputation): Qualifiers: Laterality: left Qualified Code(s): Z89.512 - Acquired absence of left leg below knee Code(s): Z89.519 - Acquired absence of unspecified leg below knee Status: Acute (3) Osteomyelitis of left foot: Qualifiers: Osteomyelitis type: other acute Qualified Code(s): M86.172 - Other acute osteomyelitis, left ankle and foot Code(s): M86.9 - Osteomyelitis, unspecified Status: Acute (4) NSTEMI (non-ST elevated myocardial infarction): Code(s): I21.4 - Non-ST elevation (NSTEMI) myocardial infarction Status: Acute Assessment and Plan: Echocardiogram showed normal left ventricular systolic function with calcified mitral valve, she seems to be stable from cardiac standpoint, would continue Plavix, and consider outpatient cardiac catheterization at a later stage which is otherwise stable, with no active infection. Dr. Cat talked to her about considering cardiac catheterization she would rather do it later, if she gets discharged will arrange for outpatient catheterization in a week or 2. (5) Acute respiratory failure with hypoxia: Code(s): J96.01 - Acute respiratory failure with hypoxia Status: Acute (6) CHF exacerbation: Code(s): I50.9 - Heart failure, unspecified Status: Acute Assessment and Plan: Echo showed normal left ventricular systolic function but with evidence of diastolic dysfunction and pulmonary hypertensioEcho showed normal left ventricular systolic function but with evidence of diastolic dysfunction and pulmonary hypertension (7) Infected stasis ulcer of left lower extremity: Code(s): I83.229 - Varicose veins of left lower extremity with both ulcer of unspecified site and inflammation; L97.929 - Non-pressure chronic ulcer of unspecified part of left lower leg with unspecified severity Status: Acute Assessment and Plan: 83.229 - Varicose veins of left lower extremity with both ulcer of unspecified site and inflammation; L97.929 - Non-pressure chronic ulcer of unspecified part of left lower leg with unspecified severity Additional Plan Subjective Date/time seen: 10/04/20 15:30 Interval history: Date of service: 10/03/2020 Owen Escobar is a 80 year old female with a history of uncontrolled type 2 diabetes, peripheral vascular disease, and left osteomyelitis who is seen in follow-up for osteomyelitis of left foot now s/p left BKA on 09/28/20. she is doing well today. No acute concerns. She denies chest pain or dizziness. She reports stable dyspnea. She is continuing to work with PT and OT and feels that she is doing okay. Review of Systems Review of Systems: All systems reviewed & are unremarkable except as noted in HPI and below Constitutional: Constitutional: Reports as per HPI, Reports difficulty sleeping and Reports snoring Eyes: Eyes: Reports as per HPI ENT: Reports system reviewed and no additional complaints, except as documented and Reports as per HPI Cardiovascular: Cardiovascular: Reports as per HPI, Denies chest pain, Denies chest pain at rest, Denies syncope, Reports leg ulcers and Reports leg edema Respiratory: Respiratory: Reports as per HPI and Reports snoring Gastrointestinal: Gastrointestinal: Reports as per HPI Genitourinary: Genitourinary: Reports as per HPI Musculoskeletal: Musculoskeletal: Reports as per HPI Neurologic: Denies syncope Exam Narrative: Exam Narrative: Awake alert oriented x3 not in acute distress Neck is supple no obvious JVD, no carotid bruit Chest: She has decreased breathing sound in the bases with biba
[2020-10-04] MEDS: INSULIN ASPART (*BKC) 100 UNITS/ML SUB-Q (15:46)
[2020-10-04 15:47] LABS: Glucose Point of Care 205 (65-105)
--- NOTE | 2020-10-04 16:22 | PM.DS ---
DS: Admitting Diagnosis Admitting Diagnosis Admitting Diagnosis: Acute respiratory failure with hypoxia and osteomyelitis of the left foot DS: Discharge Diagnosis Discharge Diagnosis (1) S/P BKA (below knee amputation): Qualifiers: Laterality: left Qualified Code(s): Z89.512 - Acquired absence of left leg below knee Code(s): Z89.519 - Acquired absence of unspecified leg below knee Status: Acute Assessment and Plan: Underwent left BKA on 09/28/[address] Huerta. No immediate surgical complications. She tolerated the procedure well. She is having some phantom limb pains but notes that this is improving. She will need to follow-up with orthopedic surgery for stump care. (2) Osteomyelitis of left foot: Qualifiers: Osteomyelitis type: other acute Qualified Code(s): M86.172 - Other acute osteomyelitis, left ankle and foot Code(s): M86.9 - Osteomyelitis, unspecified Status: Acute Assessment and Plan: Left calcaneal bone secondary to nonhealing diabetic foot ulcer. Recent hospitalization from 09/13/20-09/22/20 in which she underwent excisional debridement. Now s/p left BKA. See above. Infectious disease followed for post-operative antibiotic recommendations. She received 4 doses of Ancef; discontinued on 09/29/[address] Tavarez's recommendation. (3) Infected stasis ulcer of left lower extremity: Code(s): I83.229 - Varicose veins of left lower extremity with both ulcer of unspecified site and inflammation; L97.929 - Non-pressure chronic ulcer of unspecified part of left lower leg with unspecified severity Status: Acute Assessment and Plan: With gangrene and left foot cellulitis. On 09/13/20, wound culture of left foot had GBS isolate, as well as MRSA (suspected to be colonizer). Now s/p BKA as above. (4) NSTEMI (non-ST elevated myocardial infarction): Code(s): I21.4 - Non-ST elevation (NSTEMI) myocardial infarction Status: Acute Assessment and Plan: Elevated troponin upon presentation along with ST changes felt to be consistent with NSTEMI. She was started on heparin and transitioned to therapeutic lovenox which has now been discontinued. Echo showed normal LV systolic function. ASA, plavis were continued at discharge and she will need outpatient catheterization in 1-2 weeks per cardiology (5) Acute respiratory failure with hypoxia: Code(s): J96.01 - Acute respiratory failure with hypoxia Status: Acute Assessment and Plan: Multifactorial secondary to COPD, CHF. Currently requiring 2 L O2 per nasal cannula. She was discharged on supplemental O2 at last hospital stay 09/24/20 (though I am unsure at what setting). Chest CTA was performed to r/o PE given chronic hypoxia and negative for PE. (6) CHF exacerbation: Code(s): I50.9 - Heart failure, unspecified Status: Acute Assessment and Plan: Echo showed normal LV systolic function with evidence of diastolic dysfunction. She denies cough or SOB. She appears euvolemic on exam today. Lasix was continued at discharge. (7) Uncontrolled diabetes mellitus: Qualifiers: Diabetes mellitus type: type 2 Glycemic state: with hyperglycemia Qualified Code(s): E11.65 - Type 2 diabetes mellitus with hyperglycemia Code(s): E11.65 - Type 2 diabetes mellitus with hyperglycemia Status: Acute Assessment and Plan: Blood sugars were poorly controlled with some readings up to 400. No evidence of DKA and anion gap is normal. Most recent A1c is 10.3. This will need to be followed closely at the [facility]. (8) Hypokalemia: Code(s): E87.6 - Hypokalemia Status: Resolved Assessment and Plan: Low upon presentation. Likely due to loop diuretic. Potassium normalized. Plan for CMP in 1 week. (9) Anemia of other chronic disease: Code(s): D63.8 - Anemia in other chronic diseases classified e
[2020-10-04 18:47] LABS: Glucose Point of Care 229 (65-105)
--- NOTE | 2020-10-04 18:51 | PC.NURSE ---
Patients' evening dose of insulin non administered due to patient refusing to eat diner. Blood sugar was 226 and patient will receive Lantus tonight. Dr. Alarcon notified.
[2020-10-04 20:28] LABS: Glucose Point of Care 204 (65-105)
[2020-10-04] MEDS: SENNA/DOCUSATE SODIUM TABLET 1 TAB PO (20:28)
[2020-10-04] MEDS: MIRTAZAPINE 15 MG TABLET PO (20:29)
[2020-10-04] MEDS: INSULIN GLARGINE (*BKC) 100 UNITS/ML 35 UNITS SUB-Q (20:30)
== END 2020-10-05 01:00 | DRG 239 ==
LOC: ANHED 06:32 → ANHIMU 07:29 → ANH2MED 09-24 10:16 → ANHIMU 10-10 12:10
PROVIDERS: Family Medicine; Internal Medicine; Orthopaedic Surgery; Physician Assistant; Specialist; Admitting Provider Family Medicine; Emergency Provider Emergency Medicine; PCP Pediatrics Pediatric Emergency Medicine; Visit Provider Physician Assistant
PROC: 0Y6J0Z3 Detachment at Left Lower Leg, Low, Open Approach (ICD-10-PCS; CPT 27882; principal; 2020-09-28 14:00)
DX: E11.52 Type 2 diabetes mellitus with diabetic peripheral angiopathy with gangrene (principal); J96.01 Acute respiratory failure with hypoxia; I21.4 Non-ST elevation (NSTEMI) myocardial infarction; I50.31 Acute diastolic (congestive) heart failure; I96 Gangrene, not elsewhere classified; L03.116 Cellulitis of left lower limb; M86.172 Other acute osteomyelitis, left ankle and foot; Z68.42 Body mass index [BMI] 45.0-49.9, adult; E11.628 Type 2 diabetes mellitus with other skin complications; E11.69 Type 2 diabetes mellitus with other specified complication; I11.0 Hypertensive heart disease with heart failure; E11.621 Type 2 diabetes mellitus with foot ulcer; L97.529 Non-pressure chronic ulcer of other part of left foot with unspecified severity; Z20.828 Contact with and (suspected) exposure to other viral communicable diseases; J44.9 Chronic obstructive pulmonary disease, unspecified; E03.9 Hypothyroidism, unspecified; E11.65 Type 2 diabetes mellitus with hyperglycemia; I25.10 Atherosclerotic heart disease of native coronary artery without angina pectoris; I48.0 Paroxysmal atrial fibrillation; E11.42 Type 2 diabetes mellitus with diabetic polyneuropathy; R19.7 Diarrhea, unspecified; T36.4X5A Adverse effect of tetracyclines, initial encounter; D63.8 Anemia in other chronic diseases classified elsewhere; E87.6 Hypokalemia; T50.2X5A Adverse effect of carbonic-anhydrase inhibitors, benzothiadiazides and other diuretics, initial encounter; E66.01 Morbid (severe) obesity due to excess calories; Z89.511 Acquired absence of right leg below knee; Z95.1 Presence of aortocoronary bypass graft; Z87.891 Personal history of nicotine dependence; K59.03 Drug induced constipation; T40.2X5A Adverse effect of other opioids, initial encounter
CPT/HCPCS: 36415; 71045; 71275; 76775; 80048; 80053; 80061; 81001; 82607; 82728; 82746; 83540; 83550; 83735; 83880; 84484; 85014; 85018; 85025; 85027; 85380; 85610; 85730; 86140; 87015; 87045; 87046; 87086; 87177; 87209; 87272; 87324; 87427; 87635; 88307; 88311; 89055; 93005; 96374; 96376; 97110; 97162; 97164; 97165; 97530; 97535; 99291; A9270; C8929; C9113; C9803; J0690; J1644; J1650; J1815; J1940; J2704; J3010; J7030; J7120; Q9957; Q9967; U0003

== ENCOUNTER 2020-10-15 08:54 | Inpatient (IN) | payer OTHER, SELFPAY ==
[2020-10-15] VITALS (15 sets, daily range): BP systolic 132–146; BP diastolic 48–68; PULSE 61–88; RESP 16–35; TEMP 36.2–36.4; O2SAT 93–99; BMI 52.2
--- NOTE | ~2020-10-15 | US_ITS ---
EXAMINATION:US venous doppler LE BI INDICATION:DVT. TECHNIQUE: Multiple grayscale, color flow and Doppler images of the right and left lower extremity de ep venous systems were obtained and reviewed. COMPARISON:05/09/2019 FINDINGS: The common femoral, superficial femoral and popliteal veins demonstrate normal respiratory variation, augmentation and compressibility. Color flow is also seen within the greater saphenous an d profunda veins. The posterior tibial and peroneal veins are not visualized due to bilateral below-t he-knee amputation. IMPRESSION: 1: No lower extremity deep venous thrombosis. Reviewed, dictated and finalized at location A. LAND FIRE FIGHTER
--- NOTE | ~2020-10-15 | XR_ITS ---
EXAMINATION: XR chest 1V portable EXAM DATE: 10/15/2020 10:43 INDICATION: Shortness of breath. TECHNIQUE: Portable AP frontal chest x-ray was obtained. Comparison is made to prior examination from 09/23/2020. FINDINGS: Sternotomy wires are present without findings to suggest sternal dehiscence. The cardiac si lhouette is enlarged. There is pulmonary vascular congestion. There is indistinct reticulation with a bibasal predominance which may indicate pulmonary edema. Pneumonia not excludable. Small pleural eff usions. There is no pneumothorax suspected. There is aortic arteriosclerosis. There are mild bony deg enerative changes. IMPRESSION: Findings consistent with CHF exacerbation. Infection not radiographically excludable. Reviewed, dictated and finalized at location A. F OF INTERNAL MEDICINE IMPRESSION: Findings consistent with CHF exacerbation. Infection not radiograph ically excludable.
--- NOTE | ~2020-10-15 | XR_ITS ---
EXAMINATION: XR chest 1V portable DATE: 10/17/2020 05:59 INDICATION: Congestive heart failure TECHNIQUE: frontal view of the chest was obtained. COMPARISON: Chest radiograph dated 10/16/2020 FINDINGS: Bilateral diffuse increased interstitial pattern consistent with persistent mild pulmonary edema. Inc reased lucencies at the upper lung zones consistent with emphysema better appreciated on CT dated . More patchy airspace opacities in the bilateral mid and left lower lung zones which could re present atelectasis and/or pneumonia. No pneumothorax or pleural effusion. Cardiomegaly. Median baptiste otomy wires and mediastinal surgical clips are seen, likely from prior coronary artery bypass graftin g. Atherosclerotic calcifications at the aortic arch and bilateral carotid bulbs. IMPRESSION: 1. Congestive heart failure with cardiomegaly and mild pulmonary edema. 2. Mild patchy airspace opacities in the left lower and bilateral mid lung zones which could represen t atelectasis and/or pneumonia. 3. Emphysema. Reviewed, dictated and finalized at location A. IAL TRACKWORK BLACKSMITH IMPRESSION: 1. Congestive heart failure with cardiomegaly and mild pulmonary edema. 2. Mild patchy airspace opacities in the left lower and bilateral mid lung zone s which could represent atelectasis and/or pneumonia. 3. Emphysema.
--- NOTE | ~2020-10-15 | CT_ITS ---
EXAMINATION: CTA chest PE protocol EXAM DATE: 10/15/2020 12:07 INDICATION: Shortness of breath. Postoperative amputation. TECHNIQUE: Spiral CTA of the chest (pulmonary arteries) was performed with 100 cc Omnipaque 350 intr avenous contrast injection. Images were acquired during the pulmonary arterial phase. Coronal maxi mum intensity projection 3D-reconstructions were created by the technologist on dedicated workstation . Axial, coronal and sagittal reformatted images were reviewed. The dose-length product (DLP) for t his examination was 814.26 mGy-cm. The exposure was tailored according to patient size (auto mA exp osure control), and iterative reconstruction (ASIR) was used as additional dose reduction technique. Comparison is made to prior examination from 10/04/2020. FINDINGS: Pulmonary arteries are well opacified and without intraluminal filling defects. No thora cic aortic dissection. Small to moderate-sized bilateral pleural effusions with multi segmental bilat eral lower lobe atelectasis, subsegmental lingular atelectasis. Additional basilar dependent edema or infection. Tracheobronchial tree is patent. Some reactive mediastinal lymphadenopathy. There is n o pneumothorax. There is cardiomegaly. There is mild to moderate emphysema. There are sternotomy wi res, and cardiac/coronary surgical changes. Correlate with prior history. Upper abdomen is unremarka ble. There is thoracic spondylosis without osteoblastic or osteolytic lesions identified. Compared to prior examination, mild increase in size of pleural effusions. There has been increase in the airspace disease. IMPRESSION: 1. No pulmonary emboli. 2. Progression of small to moderate pleural effusions, adjacent atelectasis. 3. Bilateral dependent infection or edema. 4. Mild to moderate emphysema. Reviewed, dictated and finalized at location A. CTOR OF PURCHASING
--- NOTE | ~2020-10-15 | XR_ITS ---
EXAMINATION: XR chest 1V portable EXAM DATE: 10/16/2020 06:37 INDICATION: CHF. TECHNIQUE: Portable AP frontal chest x-ray was obtained. Comparison is made to prior examination from 10/15/2020. FINDINGS: Sternotomy wires are present without findings to suggest sternal dehiscence. Cardiac silhou ette is enlarged but stable in size compared to prior exam. There is pulmonary vascular congestion. Extensive bilateral abnormal reticulation, edema and/or infection. There are small pleural effusions with adjacent atelectasis. Appearance is either stable or with minimal progression. No pneumothorax. There are mild bony degenerative changes. There is aortic arteriosclerosis. IMPRESSION: 1. Extensive bilateral edema and/or infection. 2. Small pleural effusions, adjacent atelectasis. 3. Cardiomegaly, pulmonary vascular congestion. Reviewed, dictated and finalized at location A. ERIZING RANGE FEEDER
--- NOTE | 2020-10-15 09:16 | ECG_ITS ---
Measurements Intervals [place] Rate: 72 P: 50 VT: 208 QRS: -21 QRSD: 158 T: 139 QT: 425 QTc: 468 Interpretive Statements SINUS RHYTHM LEFT BUNDLE BRANCH BLOCK ABNORMAL ECG Electronically Signed On 10-15-2020 14:16:00 [employer]ILITY AGENT by Stephen Peralta D.O.
[2020-10-15 09:49] LABS: Basophils Absolute Auto 0.1 K/mm3 (0.0-0.1); Basophils Percent Auto 0.7 % (0.2-1.2); Eosinophils Absolute Auto 0.1 K/mm3 (0-0.3); Eosinophils Percent Auto 1.1 % (0-4.4); Hematocrit 36.4 % (37.0-47.0); Hemoglobin 10.1 g/dL (12.0-15.0); Immature Granulocyte Percent A 1.6 % (0-0.5); Lymphocytes Absolute Auto 1.62 K/mm3 (0.9-3.2); Lymphocytes Percent Auto 13.1 % (18.3-44.2); Mean Corpuscular HGB Conc 27.7 g/dl (32-36); Mean Corpuscular Hemoglobin 27.8 pg (26-34); Mean Corpuscular Volume 100.3 fl (80-100); Mean Platelet Volume 10.1 fl (7.4-10.4); Monocytes Absolute Auto 0.5 K/mm3 (0.1-0.6); Monocytes Percent Auto 4.4 % (2.6-8.5); Neutrophils Absolute Auto 9.7 K/mm3 (1.3-6.7); Neutrophils Percent Auto 79.1 % (45.5-73.1); Platelet Count Result 387 k/mm3 (150-375); Red Blood Count 3.63 M/mm3 (4.2-5.4); Red Cell Distribution Width 18.6 % (11.5-14.5); White Blood Count 12.3 K/mm3 (4.5-10.0)
[2020-10-15 09:52] LABS: Alveolar/Arterial O2 Gradient 141.3 mmHg; Base Excess ABG 8.1 mEq/l (+/-2.0); Fractional Inspired Oxygen 40 %; HCO3 ABG 35.8 mEq/l (22.0-26.0); Oxygen Content ABG 14.1 %vol (16.0-22.0); Oxygen Saturation ABG 91.1 % (95.0-100.0); PO2 ABG 65.9 mmHg (80.0-100.0); PO2 FiO2 Ratio Arterial Blood 1.65 %
[2020-10-15 09:53] LABS: Device NASAL CANNULA; Modified Allen's Test Pass; PCO2 ABG 67.8 mmHg (35.0-45.0); Site Drawn RIGHT RADIAL
[2020-10-15 09:59] LABS: INR 1.1; Prothrombin Time 15.2 Seconds (11.1-14.7)
[2020-10-15] MEDS: ALBUTEROL SULFATE NEB 2.5 MG/0.5 ML INH 10 MG INHALATION (09:59)
[2020-10-15] MEDS: IPRATROPIUM BR 0.02% INH SOLN 0.5 MG/2.5 ML VIAL 1 MG INHALATION (09:59)
[2020-10-15 10:00] LABS: Partial Thromboplastin Time 28.5 SECONDS (22.3-36.8)
[2020-10-15 10:01] LABS: Anisocytosis 1+ (NORMAL); Hypochromasia 1+ (NORMAL); Platelet Estimate Adequate (Adequate); Target Cells 3+ (NORMAL)
[2020-10-15 10:11] LABS: NT Pro B Type Natriuretic Pept 10300 PG/ML (5-100)
[2020-10-15 10:27] LABS: Alanine Aminotransferase 16 U/L (4-35); Albumin Level 2.9 g/dL (3.5-5.1); Alkaline Phosphatase 421 U/L (38-126); Aspartate Amino Transferase 27 U/L (14-36); Bilirubin,Total 0.4 mg/dL (0.2-1.3); Blood Urea Nitrogen 28 mg/dL (7-17); Calcium 8.4 mg/dL (8.4-10.2); Carbon Dioxide > 40 mmol/L (22-30); Chloride 100 mmol/L (98-107); Estimated Glomerular Filt Rate > 60; Glucose 109 mg/dL (65-105); Sodium 143 mmol/L (137-145)
--- NOTE | 2020-10-15 10:54 | ED.SOB ---
HPI - SOB/Dyspnea General Chief Complaint: Shortness of Breath/Dyspnea Stated Complaint: sob/confusion Time Seen by Provider: 10/15/20 09:24 Source: patient Mode of arrival: EMS Limitations: other (poor historian) History of Present Illness HPI Narrative: This patient is a 80 year old female with history of hypertension, DM,CHF, chronic respiratory failure who presents for evaluation of shortness of breath. Patient reports she has developed shortness of breath today. She denies having worsening cough, fever, chills, nausea, vomiting or chest pain. She does report wheezing. She is on 5 NC all the time. She reports she had a left BKA performed by Dr. Huerta on 09/28/20. she denies any leg pain. Related Data Home Medications Medication Instructions Recorded Confirmed albuterol sulfate [Proventil HFA] 2 puff INHALATION QID 10/15/20 10/15/20 amiodarone 200 mg PO DAILY 10/15/20 10/15/20 aspirin 325 mg PO DAILY 10/15/20 10/15/20 atorvastatin 40 mg PO HS 10/15/20 10/15/20 carvedilol 12.5 mg PO BID 10/15/20 10/15/20 clopidogrel 75 mg PO HS 10/15/20 10/15/20 docusate sodium 100 mg PO Q12H 10/15/20 10/15/20 ferrous sulfate 324 mg PO DAILY 10/15/20 10/15/20 furosemide 20 mg PO DAILY 10/15/20 10/15/20 gabapentin 400 mg PO BID 10/15/20 10/15/20 insulin glargine [Lantus U-100 42 unit SUBCUT Q12H 10/15/20 10/15/20 Insulin] lisinopril 2.5 mg PO DAILY 10/15/20 10/15/20 miconazole nitrate [Aloe [place] 1 applic TOPICAL DAILY 10/15/20 10/15/20 Antifungal (micon)] mirtazapine 15 mg PO HS 10/15/20 10/15/20 polyethylene glycol 3350 [Miralax] 17 g PO DAILY 10/15/20 10/15/20 tolnaftate 1 applic TOPICAL BID 10/15/20 10/15/20 Allergies Allergy/AdvReac Type Severity Reaction Status Date / Time No Known Allergies Allergy Verified 10/15/20 11:12 Review of Systems Review of Systems: All systems reviewed & are unremarkable except as noted in HPI and below Constitutional: Constitutional: Denies chills and Denies fever(s) Cardiovascular: Cardiovascular: Denies chest pain Respiratory: Respiratory: Denies cough and Reports dyspnea Gastrointestinal: Gastrointestinal: Denies abdominal pain, Denies nausea and Denies vomiting PMFSH Past Medical History Medical History Anemia CHF (congestive heart failure) Diabetes mellitus NSTEMI (non-ST elevated myocardial infarction) Osteomyelitis Surgical History Surgical History Below-knee amputation of left lower extremity Family History Family History Mother Hypertension Social History Social History Smoking packs per day: 0.5 Smoking cigarettes per day: 10.0 Smoking status: Former smoker Gender identity (if verbalized by the patient): Female Exam Const: General: alert Orientation/consciousness: patient oriented x3 HENMT: Face and sinus: face symmetric Mouth: Yes dry mucous membranes Eyes: EOM: EOMs intact bilaterally Resp: Effort & Inspection: not labored, no retractions and tachypneic Auscultation: wheezes expiratory wheezes and throughout Cardio: Rate: regular rate Rhythm: regular rhythm Heart sounds: no murmurs GI: GI Palp: Yes Soft to palpation, No Tenderness to palpation present (GI) and No Guarding due to palpation present (GI) Auscultation: normal bowel sounds Neuro: General: patient oriented x3 Extrem: Other: left extremity with kristofer bandage on left BKA, there is right BKA Course Consultations Consultation #1: I discussed case with Leidy Rowan. She is familiar with patient. She accepts patient to hospitalist service for worsening CHF. Patient is on 5 LNC with oxygen saturation 96%. No distress. I discussed patient had CTA due to recent surgery with shortness of breath, no PE. Date: 10/15/20 Time: 12:55 Vital Signs
[2020-10-15] MEDS: FUROSEMIDE INJ 40 MG/4 ML VIAL IV PUSH ×3 (11:10→21:14)
--- NOTE | 2020-10-15 15:11 | PM.IMHP ---
H&P: HPI History of Present Illness Date/Time: 10/15/20 15:11 Chief Complaint: Shortness of breath Narrative: Owen Escobar is a 80 year old female with history of multiple medical problems including congestive heart failure, chronic respiratory failure, on oxygen, diabetes mellitus recently had left below knee amputation about [address] Huerta and was getting rehab in [facility]. According the patient she was doing fine up until 2 days ago when she started having gradually shortness of breath that increased and today she was unable to breathe. Patient denies any chest pain fever or chills. No abdominal pain nausea no vomiting. Patient also had PND and orthopnea over the last few days. Patient denies any pain in lower extremity. Review of Systems Review of Systems: All systems reviewed & are unremarkable except as noted in HPI and below ( the history and physical examination) PMFSH Past Medical History Medical History (Updated 10/15/20 @ 15:22 by Keyur Pepper MD) Anemia CHF (congestive heart failure) Diabetes mellitus NSTEMI (non-ST elevated myocardial infarction) Osteomyelitis Surgical History Surgical History (Updated 10/15/20 @ 11:02 by Kirsten Muse MD) Below-knee amputation of left lower extremity Family History Family History (Updated 10/15/20 @ 15:16 by Keyur Pepper MD) Mother Hypertension Social History Social History (Updated 10/15/20 @ 11:03 by Kirsten Muse MD) Smoking packs per day: 0.5 Smoking cigarettes per day: 10.0 Smoking status: Former smoker Gender identity (if verbalized by the patient): Female Meds Home Medications and Allergies Home Medications Medication Instructions Recorded Confirmed Type albuterol sulfate [Proventil HFA] 2 puff INHALATION QID 10/15/20 10/15/20 History amiodarone 200 mg PO DAILY 10/15/20 10/15/20 History aspirin 325 mg PO DAILY 10/15/20 10/15/20 History atorvastatin 40 mg PO HS 10/15/20 10/15/20 History carvedilol 12.5 mg PO BID 10/15/20 10/15/20 History clopidogrel 75 mg PO HS 10/15/20 10/15/20 History docusate sodium 100 mg PO Q12H 10/15/20 10/15/20 History ferrous sulfate 324 mg PO DAILY 10/15/20 10/15/20 History furosemide 20 mg PO DAILY 10/15/20 10/15/20 History gabapentin 400 mg PO BID 10/15/20 10/15/20 History insulin glargine [Lantus U-100 42 unit SUBCUT Q12H 10/15/20 10/15/20 History Insulin] lisinopril 2.5 mg PO DAILY 10/15/20 10/15/20 History miconazole nitrate [Aloe [place] 1 applic TOPICAL DAILY 10/15/20 10/15/20 History Antifungal (micon)] mirtazapine 15 mg PO HS 10/15/20 10/15/20 History polyethylene glycol 3350 [Miralax] 17 g PO DAILY 10/15/20 10/15/20 History tolnaftate 1 applic TOPICAL BID 10/15/20 10/15/20 History Allergies Allergy/AdvReac Type Severity Reaction Status Date / Time No Known Allergies Allergy Verified 10/15/20 11:12 Vital Signs Vital Signs - 24 hr 10/15/20 08:51 10/15/20 10:05 10/15/20 11:05 Temperature 36.4 C L Pulse Rate 74 88 76 Respiratory Rate 20 35 H 18 Blood Pressure 134/48 L 142/57 H Pulse Oximetry 98 99 10/15/20 13:47 Temperature Pulse Rate 88 Respiratory Rate 20 Blood Pressure 132/68 Pulse Oximetry 99 Exam Narrative: Exam Narrative: Patient is in mild respiratory distress. HEENT examination shows slightly increased JVD. Lungs air entry is decreased and has rales at the bases. Heart examination shows S1-S2 possible S3 no murmur. Abdominal examination shows soft nontender bowel sounds positive no hepatosplenomegaly. Extremities bilateral BKA. Left lower extremity is wrapped in bandage from recent BKA FEATHER CUTTING MACHINE FEEDER alert and oriented x3 moves all extremity. Mood stable Const: General: cooperative, well developed, alert and lethargic Nutritional Appearance: well nourished Orientation/consciousness: oriented to person, oriented to place and oriented to time Limitations: physical limitations Other: Bilateral BKA HENMT: Head: normal to insp
[2020-10-15 15:55] LABS: Add Urine Microscopic? YES; Appearance Urine Clear (Clear); Bacteria Urine 4+ /hpf; Bilirubin Urine Negative (Negative); Blood Urine Negative (Negative); Color Urine Yellow (Yellow); Glucose Urine UA Negative (Negative); Ketones Urine Negative (Negative); Leukocyte Esterase Ur Trace LEU/UL (Negative); Mucus Urine Rare /lpf; Nitrate Urine Positive (Negative); Protein Urine Negative (Negative); RBC Urine 0-2 /hpf (0-2); Specific Grav Ur 1.018 (1.001-1.035); Squamous Epithelial Cell Urine Rare /hpf (Few); Urobilinogen Urine Negative mg/dL (<2.0)
[2020-10-15 15:58] LABS: Troponin I 0.017 ng/mL (0.000-0.034)
[2020-10-15] MEDS: GLUCOSE ORAL GEL 15 GM OF GLUCSE IN 37.5 GM TUBE PO (16:19)
[2020-10-15] MEDS: WATER FOR IRRIGATION, STERILE 1,000 ML BOTTLE 1000 ML (16:20)
[2020-10-15] MEDS: ALBUTEROL SULFATE (*SP) AEROSOL 1 PUFF 2 PUFF INHALATION ×2 (16:26→21:27)
[2020-10-15] MEDS: GABAPENTIN 400 MG CAPSULE PO (16:44)
[2020-10-15] MEDS: DOCUSATE SODIUM 100 MG CAPSULE PO (16:48)
--- NOTE | 2020-10-15 16:58 | PM.CNPUL ---
Assessment and Plan Additional Plan Agree evolving acute on chronic hypercarbic respiratory failure/ CHF. Agree diuresis with BiPAP placement along with O2. Following. History of Present Illness History of Present Illness Consult date: 10/15/20 Chief complaint: acute on chronic respiratory failure/CHF Narrative: 80-year-old lady with 2 children. Never smoker. History of CABG-3 and diabetes noted. Recent bilateral BKA amputations secondary to DM. Transferred to [place] and returned after only a week or so with increased dyspnea, gradual in origin. She denies edema, chest pain, cough and wheeze. Denies home CPAP use but is on O2 5-6 L at home. Brisk diuresis here such that catheter placed. [facility] Past Medical History Medical History Anemia CHF (congestive heart failure) Diabetes mellitus NSTEMI (non-ST elevated myocardial infarction) Osteomyelitis Surgical History Surgical History Below-knee amputation of left lower extremity Family History Family History Mother Hypertension Social History Social History Smoking packs per day: 0.5 Smoking cigarettes per day: 10.0 Smoking status: Former smoker Gender identity (if verbalized by the patient): Female Meds Home Medications and Allergies Home Medications Medication Instructions Recorded Confirmed Type albuterol sulfate [Proventil HFA] 2 puff INHALATION QID 10/15/20 10/15/20 History amiodarone 200 mg PO DAILY 10/15/20 10/15/20 History aspirin 325 mg PO DAILY 10/15/20 10/15/20 History atorvastatin 40 mg PO HS 10/15/20 10/15/20 History carvedilol 12.5 mg PO BID 10/15/20 10/15/20 History clopidogrel 75 mg PO HS 10/15/20 10/15/20 History docusate sodium 100 mg PO Q12H 10/15/20 10/15/20 History ferrous sulfate 324 mg PO DAILY 10/15/20 10/15/20 History furosemide 20 mg PO DAILY 10/15/20 10/15/20 History gabapentin 400 mg PO BID 10/15/20 10/15/20 History insulin glargine [Lantus U-100 42 unit SUBCUT Q12H 10/15/20 10/15/20 History Insulin] lisinopril 2.5 mg PO DAILY 10/15/20 10/15/20 History miconazole nitrate [Aloe [place] 1 applic TOPICAL DAILY 10/15/20 10/15/20 History Antifungal (micon)] mirtazapine 15 mg PO HS 10/15/20 10/15/20 History polyethylene glycol 3350 [Miralax] 17 g PO DAILY 10/15/20 10/15/20 History tolnaftate 1 applic TOPICAL BID 10/15/20 10/15/20 History Allergies Allergy/AdvReac Type Severity Reaction Status Date / Time No Known Allergies Allergy Verified 10/15/20 11:12 Vital Signs Vital Signs - 24 hr 10/15/20 08:51 10/15/20 10:05 10/15/20 11:05 Temperature 36.4 C L Pulse Rate 74 88 76 Respiratory Rate 20 35 H 18 Blood Pressure 134/48 L 142/57 H Pulse Oximetry 98 99 10/15/20 13:47 10/15/20 15:36 10/15/20 15:58 Temperature 36.3 C L Pulse Rate 88 86 Respiratory Rate 20 16 Blood Pressure 132/68 146/56 H Pulse Oximetry 99 99 95 10/15/20 16:00 10/15/20 16:36 Temperature 36.3 C L Pulse Rate 16 L Respiratory Rate 86 H Blood Pressure 146/56 H Pulse Oximetry 95 93 Exam Narrative: Exam Narrative: Alert. Obese. Bilateral BKA. Chest sounds largely clear. Heart sounds regular. No neck adenopathy. N0 carotid bruits & no digital clubbing. Results Laboratory Findings CBC and BMP: 10/15/20 09:40 10/15/20 09:40 ABG, PT/INR, D-dimer: ABG ABG pH 7.340 (7.350-7.450) L 10/15/20 09:43 ABG pCO2 67.8 mmHg (35.0-45.0) H* 10/15/20 09:43 ABG pO2 65.9 mmHg (80.0-100.0) L 10/15/20 09:43 ABG O2 Saturation 91.1 % (95.0-100.0) L 10/15/20 09:43 PT/INR, D-dimer PT 15.2 Seconds (11.1-14.7) H 10/15/20 09:40 INR 1.1 10/15/20 09:40 Abnormal lab findings: Abnormal Labs 10/15/20 10/15/20 10/15/20 09:40
[2020-10-15 17:24] LABS: Glucose Point of Care 41 (65-105)
[2020-10-15 17:24] LABS: Glucose Point of Care 62 (65-105)
[2020-10-15 17:24] LABS: Glucose Point of Care 90 (65-105)
--- NOTE | 2020-10-15 17:52 | ADMGEN ---
This patient, Owen Escobar, was admitted to IMU Room 201-01 at 1420. Patient/family oriented to hospital policies and general routines including ID bracelet, bed and alarms, visiting hours, pain management, procedures, bathroom and other care routines, personal items, smoking policy, room service/diet, and visiting hours. Information on how to activate the Rapid Response Team has been discussed. Patient/Family are encouraged to report perceived risks to care and to ask questions if they do not understand what they are told or what they should do.
[2020-10-15 20:30] LABS: Glucose Point of Care 122 (65-105)
[2020-10-15] MEDS: MIRTAZAPINE 15 MG TABLET PO (21:28)
[2020-10-16] VITALS (24 sets, daily range): BP systolic 113–127; BP diastolic 46–51; PULSE 59–79; RESP 14–26; TEMP 36.1–36.3; O2SAT 85–100
[2020-10-16 06:03] LABS: Basophils Absolute Auto 0.1 K/mm3 (0.0-0.1); Basophils Percent Auto 1.1 % (0.2-1.2); Eosinophils Absolute Auto 0.2 K/mm3 (0-0.3); Eosinophils Percent Auto 2.7 % (0-4.4); Hemoglobin 8.9 g/dL (12.0-15.0); Immature Granulocyte Absolute 0.07 K/mm3 (0.00-0.031); Immature Granulocyte Percent A 0.8 % (0-0.5); Lymphocytes Absolute Auto 1.66 K/mm3 (0.9-3.2); Mean Corpuscular HGB Conc 27.8 g/dl (32-36); Mean Corpuscular Hemoglobin 27.8 pg (26-34); Mean Platelet Volume 10.3 fl (7.4-10.4); Monocytes Absolute Auto 0.6 K/mm3 (0.1-0.6); Neutrophils Absolute Auto 5.7 K/mm3 (1.3-6.7); Neutrophils Percent Auto 68.4 % (45.5-73.1); Platelet Count Result 331 k/mm3 (150-375); Red Cell Distribution Width 18.4 % (11.5-14.5); White Blood Count 8.3 K/mm3 (4.5-10.0)
[2020-10-16 06:28] LABS: Alanine Aminotransferase 13 U/L (4-35); Albumin Level 2.6 g/dL (3.5-5.1); Alkaline Phosphatase 326 U/L (38-126); Aspartate Amino Transferase 25 U/L (14-36); Bilirubin,Total 0.4 mg/dL (0.2-1.3); Blood Urea Nitrogen 24 mg/dL (7-17); Calcium 7.9 mg/dL (8.4-10.2); Carbon Dioxide > 40 mmol/L (22-30); Chloride 100 mmol/L (98-107); Estimated Glomerular Filt Rate > 60; Glucose 37 mg/dL (65-105); Potassium 4.4 mmol/L (3.4-5.0); Sodium 142 mmol/L (137-145)
[2020-10-16] MEDS: GLUCOSE ORAL GEL 15 GM OF GLUCSE IN 37.5 GM TUBE PO ×2 (06:34→06:55)
[2020-10-16 06:56] LABS: Hypochromasia 1+ (NORMAL); Platelet Estimate Adequate (Adequate)
[2020-10-16 06:57] LABS: Anisocytosis 1+ (NORMAL); Stomatocytes 1+ (NORMAL)
[2020-10-16 07:01] LABS: Glucose Point of Care 59 (65-105)
[2020-10-16 07:21] LABS: Glucose Point of Care 77 (65-105)
[2020-10-16] MEDS: POTASSIUM CHLORIDE 20 MEQ PACKET (FOR LIQUID) PO (08:57)
[2020-10-16] MEDS: GABAPENTIN 400 MG CAPSULE PO ×2 (08:57→17:23)
[2020-10-16] MEDS: PANTOPRAZOLE SODIUM IV 40 MG VIAL IV PUSH (08:57)
[2020-10-16] MEDS: FERROUS SULFATE 324 MG TABLET PO (08:57)
[2020-10-16] MEDS: FUROSEMIDE INJ 40 MG/4 ML VIAL IV PUSH ×2 (08:57→20:08)
[2020-10-16] MEDS: polyethylene glycoL 3350 17 GM POWD.PACK PO (08:57)
[2020-10-16] MEDS: lisinopriL 2.5 MG TABLET PO (08:57)
[2020-10-16] MEDS: CLOPIDOGREL BISULFATE 75 MG TABLET PO (08:57)
[2020-10-16] MEDS: ATORVASTATIN 40 MG TABLET PO (08:57)
[2020-10-16] MEDS: AMIODARONE HCL 200 MG TABLET PO (08:58)
[2020-10-16] MEDS: ASPIRIN 325 MG TABLET PO (08:58)
[2020-10-16] MEDS: ALBUTEROL SULFATE (*SP) AEROSOL 1 PUFF 2 PUFF INHALATION ×4 (08:59→20:12)
[2020-10-16] MEDS: DOCUSATE SODIUM 100 MG CAPSULE PO ×2 (09:00→17:25)
--- NOTE | 2020-10-16 09:38 | PM.IMPN ---
Progress Note: A&P Assessment and Plan (1) Acute systolic heart failure: Code(s): I50.21 - Acute systolic (congestive) heart failure Status: Acute Assessment and Plan: Will diurese patient with IV Lasix. Will review 2D echo and artery cardiology evaluation. Will do rule out ME protocol. Will monitor potassium. (2) Acute respiratory failure with hypoxia and hypercapnia: Code(s): J96.01 - Acute respiratory failure with hypoxia; J96.02 - Acute respiratory failure with hypercapnia Status: Acute Assessment and Plan: Will start BiPAP and workup pulmonary embolism. Will consult multimedia specialist Dr. Mariano. (3) Elevated troponin: Code(s): R77.8 - Other specified abnormalities of plasma proteins Status: Acute Assessment and Plan: Cardiology consult and follow rule out ME protocol (4) IDDM (insulin dependent diabetes mellitus): Status: Acute Assessment and Plan: And start sliding scale insulin monitor glucose closely (5) Elevated WBC count: Code(s): D72.829 - Elevated white blood cell count, unspecified Status: Acute Assessment and Plan: Blood culture urine culture IV antibiotics and look for the source of infection Additional Plan Will continue to diureses patient. Bill continue to use BiPAP. Hemoglobin noted. Will monitor closely. Repeat chest x-ray in the morning. Pulmonary consult noted. Subjective Date/time seen: 10/16/20 09:38 Interval history: Patient was seen during the morning rounds today. Patient has mild shortness of breath. No chest pain. No abdominal pain nausea no vomiting. Mood stable. Review of Systems Review of Systems: All systems reviewed & are unremarkable except as noted in HPI and below ( the history and physical examination) Exam Narrative: Exam Narrative: Patient is in mild respiratory distress. HEENT examination shows slightly increased JVD. Lungs air entry is decreased and has rales at the bases. Heart examination shows S1-S2 possible S3 no murmur. Abdominal examination shows soft nontender bowel sounds positive no hepatosplenomegaly. Extremities bilateral BKA. Left lower extremity is wrapped in bandage from recent BKA DORMITORY MAID alert and oriented x3 moves all extremity. Mood stable Const: General: cooperative, well developed, alert and lethargic Nutritional Appearance: well nourished Orientation/consciousness: oriented to person, oriented to place, oriented to time and lethargic Limitations: physical limitations Other: Bilateral BKA HENMT: Head: normal to inspection Neuro: General: oriented to person, oriented to place and oriented to time Objective Data Vital Signs Vital Signs: Vital Signs - 24 hr 10/15/20 10:05 10/15/20 11:05 10/15/20 13:47 Temperature Pulse Rate 88 76 88 Respiratory Rate 35 H 18 20 Blood Pressure 142/57 H 132/68 Pulse Oximetry 99 99 10/15/20 15:36 10/15/20 15:58 10/15/20 16:00 Temperature 36.3 C L 36.3 C L Pulse Rate 86 62 Respiratory Rate 16 16 Blood Pressure 146/56 H 146/56 H Pulse Oximetry 99 95 93 10/15/20 16:36 10/15/20 18:00 10/15/20 18:22 Temperature Pulse Rate 61 64 Respiratory Rate 17 Blood Pressure Pulse Oximetry 93 96 10/15/20 20:00 10/15/20 22:00 10/15/20 22:31 Temperature 36.2 C L Pulse Rate 63 62 69 Respiratory Rate 16 16 Blood Pressure 135/50 L Pulse Oximetry 99 96 10/15/20 23:40 10/15/20 23:53 10/16/20 00:00 Temperature 36.2 C L Pulse Rate 71 71 64 Respiratory Rate 26 H 26 H Blood Pressure 134/52 L Pulse Oximetry 96 96 10/16/20 01:06 10/16/20 02:00 10/16/20 04:00 Temperature 36.1 C L Pulse Rate 70 59 L 64 Respiratory Rate 15 26 H Blood Pressure 125/49 L Pulse Oximetry 96 100 10/16/20 05:27 10/16/20 07:12 10/16/20 08:00 Temperature 36.3 C L Pulse Rate 60 66 63 Respiratory Rate 24 H Blood Pressure 124/51 L Pulse Oximetry 97 10/16/20 08:58 10/16/20 09:11
[2020-10-16 09:57] LABS: Alveolar/Arterial O2 Gradient 106.6 mmHg; Base Excess ABG 13.5 mEq/l (+/-2.0); Fractional Inspired Oxygen 40 %; Oxygen Content ABG 14.4 %vol (16.0-22.0); Oxygen Saturation ABG 95.6 % (95.0-100.0); Oxyhemoglobin 95.6 % THb (90.0-100.0); PO2 ABG 87.2 mmHg (80.0-100.0); PO2 FiO2 Ratio Arterial Blood 2.18 %; Total Hemoglobin 10.6 g/dL (12.0-18.0); pH ABG 7.341 (7.350-7.450)
[2020-10-16 10:00] LABS: PCO2 ABG 79.5 mmHg (35.0-45.0)
[2020-10-16 10:01] LABS: Device NASAL CANNULA; Modified Allen's Test Pass; Site Drawn LEFT RADIAL
--- NOTE | 2020-10-16 10:11 | PM.CNCAR ---
Assessment and Plan Assessment and plan (1) Acute diastolic CHF (congestive heart failure): Code(s): I50.31 - Acute diastolic (congestive) heart failure Status: Acute Assessment and Plan: New onset CHF, w/ nml LV fxn in Jun so prob diastolic. May have become fluid -overloaded w/ recent surgery, r/o new cardiac event. Echo Cont furosemide 40mg IVP BID Follow renal fxn and lytes (2) CAD (coronary artery disease): Code(s): I25.10 - Atherosclerotic heart disease of [place] coronary artery without angina pectoris Status: Acute Assessment and Plan: H/O CAD, CABG, no angina. Trivial elevation of trop. (3) LBBB (left bundle branch block): Code(s): I44.7 - Left bundle-branch block, unspecified Status: Acute Assessment and Plan: New since BKA or old? Find old EKG (4) On amiodarone therapy: Code(s): Z79.899 - Other watermelon inspector (current) drug therapy Status: Acute Assessment and Plan: On amio, new since Jun 2020. I assume pt must have had arrhythmias at some point. NSR today. Additional Plan Addendum: I have discovered that the patient actually has 2 charts in EMR, and that she was seen by Dr. Cat for non-STEMI, CHF and PAF following her BKA. The left bundle-branch block is new. Will transfer cardiac care back to Dr. Cat Will ask IT to merge the two charts. History of Present Illness History of Present Illness Consult date/time: 10/16/20 10:11 Consult reason: congestive heart failure Reason For Visit: acute on chronic respiratory failure/CHF Narrative: Date of service: 10/16/2020 Owen Escobar is a 80-year-old white female whom I was asked to see at the request of the hospitalist for my advice and opinion regarding her new onset of CHF in consultation. The patient had a left BKA approximately 1 week ago and has been at a rehab facility. She apparently became short of breath a couple of days ago and was transferred to our hospital. She was found to be in CHF, and a started diuresis. She denies any swelling, chest pain, palpitations. No prior history of CHF. The patient had a CABG in 1994. She states she has had no history of heart attack and no further heart problems. She is on amiodarone which is new compared to hospitalization in June 2020 but does not know anything about any arrhythmias etc.. Also Plavix is new and she is not sure why she is taking that. She has diabetes and pleural peripheral vascular disease. An echo done at [facility] in June 2020 showed low normal LV function EF 55%, mild LVH, RV function low normal. Lexiscan 06/2020 showed no evidence of ischemia but an apical infarction, EF 56%. Review of Systems Constitutional: Constitutional: Denies chills and Reports fatigue Eyes: Eyes: Reports no additional eye complaints ENT: Reports Normal hearing present, Denies epistaxis and Denies nasal congestion Cardiovascular: Cardiovascular: Denies chest pain, Denies leg edema, Denies lightheadedness and Denies palpitations Respiratory: Respiratory: Denies chest congestion, Denies cough, Denies hemoptysis, Reports dyspnea and Reports dyspnea on exertion Gastrointestinal: Gastrointestinal: Denies abdominal pain, Denies hematochezia and Denies hematemesis Genitourinary: Genitourinary: Denies hematuria and Denies dysuria Musculoskeletal: Musculoskeletal: Reports no additional musculoskeletal complaints Integumentary/Breasts: Skin/Breast: Denies rash Neurologic: Denies Abnormal speech present and Denies headache(s) Psychiatric: Psychiatric: Denies no additional psychiatric complaints [facility] Past Medical History Medical History (Updated 10/16/20 @ 11:33 by Roya Caldera MD) Anemia CAD (coronary artery disease) CHF (congestive heart failure) Diabete
--- NOTE | 2020-10-16 11:14 | PM.PNPUL ---
Progress Note: A&P Additional Plan Subtle change in ABG as above. I am delighted with her subjective status. We will follow ABG and to encourage ongoing BiPAP use at night. Time Spent With Patient Time with patient: 15 - 25 minutes Subjective Date/time seen: 10/16/20 11:14 Interval history: She feels great. Wore BiPAP all night. Blood glucose noted to be only in the 30s this morning and that was corrected. FiO2 decreased given modest change in ABG -pCO2 and PO2 both up some - blood pH unchanged. Exam Narrative: Exam Narrative: Chest sounds clear. Heart sounds regular. No neck adenopathy. Objective Data Vital Signs Vital Signs: Vital Signs - 24 hr 10/15/20 13:47 10/15/20 15:36 10/15/20 15:58 Temperature 36.3 C L Pulse Rate 88 86 Respiratory Rate 20 16 Blood Pressure 132/68 146/56 H Pulse Oximetry 99 99 95 10/15/20 16:00 10/15/20 16:36 10/15/20 18:00 Temperature 36.3 C L Pulse Rate 62 61 Respiratory Rate 16 Blood Pressure 146/56 H Pulse Oximetry 93 93 10/15/20 18:22 10/15/20 20:00 10/15/20 22:00 Temperature 36.2 C L Pulse Rate 64 63 62 Respiratory Rate 17 16 Blood Pressure 135/50 L Pulse Oximetry 96 99 10/15/20 22:31 10/15/20 23:40 10/15/20 23:53 Temperature 36.2 C L Pulse Rate 69 71 71 Respiratory Rate 16 26 H 26 H Blood Pressure 134/52 L Pulse Oximetry 96 96 96 10/16/20 00:00 10/16/20 01:06 10/16/20 02:00 Temperature Pulse Rate 64 70 59 L Respiratory Rate 15 Blood Pressure Pulse Oximetry 96 10/16/20 04:00 10/16/20 05:27 10/16/20 07:12 Temperature 36.1 C L 36.3 C L Pulse Rate 64 60 66 Respiratory Rate 26 H 24 H Blood Pressure 125/49 L 124/51 L Pulse Oximetry 100 97 10/16/20 08:00 10/16/20 08:58 10/16/20 09:11 Temperature Pulse Rate 63 70 Respiratory Rate Blood Pressure Pulse Oximetry 97 10/16/20 09:51 10/16/20 10:00 Temperature Pulse Rate 75 75 Respiratory Rate 18 Blood Pressure Pulse Oximetry 99 Intake/Output Intake/Output: Intake & Output 10/13/20 10/14/20 10/15/20 10/16/20 23:59 23:59 23:59 23:59 Intake Total 290 440 Output Total 2750 1650 Balance -9898 -1210 Meds/Results Medications: Active Medications Generic Name Dose Route Start Last Admin Trade Name Freq PRN Reason Stop Dose Admin Albuterol 2 puff 10/15/20 17:00 10/16/20 08:59 Albuterol Sulfate (*Sp) Aerosol 1 Puff INHALATION 2 puff QID NEW Administration Amiodarone HCl 200 mg 10/16/20 09:00 10/16/20 08:58 Amiodarone Hcl 200 Mg Tablet PO 200 mg DAILY NEW Administration Aspirin 325 mg 10/16/20 09:00 10/16/20 08:58 Aspirin 325 Mg Tablet PO 325 mg DAILY NEW Administration Atorvastatin Calcium 40 mg 10/16/20 09:00 10/16/20 08:57 Atorvastatin 40 Mg Tablet PO 40 mg DAILY NEW Administration Clopidogrel Bisulfate 75 mg 10/16/20 09:00 10/16/20 08:57 Clopidogrel Bisulfate 75 Mg Tablet PO 75 mg DAILY NEW Administration Dextrose 12.5 gm 10/15/20 14:48 Dextrose 50% 25 Gm/50 Ml Syringe IV PUSH PRN PRN Hypoglycemia Protocol Docusate Sodium 100 mg 10/15/20 17:00 10/16/20 09:00 Docusate Sodium 100 Mg Capsule PO 100 mg BID NEW Administration Ferrous Sulfate 324 mg 10/16/20 09:00 10/16/20 08:57 Ferrous Sulfate 324 Mg Tablet PO 324 mg DAILY NEW Administration Furosemide 40 mg 10/15/20 21:00 10/16/20 08:57 Furosemide Inj 40 Mg/4 Ml Vial IV PUSH 40 mg Q12HR NEW Administration Gabapentin 400 mg 10/15/20 17:00 10/16/20 08:57 Gabapentin 400 Mg Capsule PO 400 mg BID NEW Administration Glucagon 1 mg 10/15/20 14:48 Glucagon For Inj 1 Mg Vial IM PRN PRN Hypoglycemia Protocol Glucose 15 gm 10/15/20 14:48 10/16/20 06:55 Glucose Oral Gel 15 Gm Of Glucse In 37.5 Gm Tube PO 15 gm PRN PRN Administration Hypoglycemia Protocol Ceftriaxone Sodium/Dextrose 1 gm in 50 mls @ 100 mls
[2020-10-16 11:48] LABS: Glucose Point of Care 182 (65-105)
[2020-10-16 15:36] LABS: Glucose Point of Care 115 (65-105)
[2020-10-16] MEDS: MIRTAZAPINE 15 MG TABLET PO (20:10)
[2020-10-16 20:11] LABS: Glucose Point of Care 143 (65-105)
[2020-10-16] MEDS: HYDROcodone/acetaminophen (*CRX) 5-325 MG TABLET 1 TAB PO (22:17)
[2020-10-17] VITALS (10 sets, daily range): BP systolic 118–130; BP diastolic 45–59; PULSE 63–84; RESP 17–26; TEMP 35.9–36.3; O2SAT 92–98
[2020-10-17 00:19] LABS: Glucose Point of Care 174 (65-105)
[2020-10-17] MEDS: HYDROcodone/acetaminophen (*CRX) 5-325 MG TABLET 1 TAB PO (04:01)
[2020-10-17 05:34] LABS: Alveolar/Arterial O2 Gradient 63.8 mmHg; Base Excess ABG 15.4 mEq/l (+/-2.0); Fractional Inspired Oxygen 30 %; HCO3 ABG 42.2 mEq/l (22.0-26.0); Oxygen Content ABG 12.5 %vol (16.0-22.0); Oxyhemoglobin 93.3 % THb (90.0-100.0); PO2 ABG 71.4 mmHg (80.0-100.0); PO2 FiO2 Ratio Arterial Blood 2.38 %; Total Hemoglobin 9.5 g/dL (12.0-18.0); pH ABG 7.417 (7.350-7.450)
[2020-10-17 05:35] LABS: Device NON-INVASIVE VENT; Modified Allen's Test Pass; Site Drawn RIGHT RADIAL
[2020-10-17 05:36] LABS: Non-Invasive Expiratory Pressure 8 CMH2O; Non-Invasive Inspiratory Pressure 12 CMH2O; Non-Invasive Vent Rate 12 /MIN
[2020-10-17 06:13] LABS: Hemoglobin 8.4 g/dL (12.0-15.0); Mean Corpuscular Hemoglobin 27.1 pg (26-34); Mean Corpuscular Volume 96.8 fl (80-100); Mean Platelet Volume 10.5 fl (7.4-10.4); Platelet Count Result 293 k/mm3 (150-375); Red Cell Distribution Width 18.1 % (11.5-14.5); White Blood Count 8.9 K/mm3 (4.5-10.0)
[2020-10-17 06:14] LABS: Alanine Aminotransferase 13 U/L (4-35); Albumin Level 2.5 g/dL (3.5-5.1); Alkaline Phosphatase 333 U/L (38-126); Aspartate Amino Transferase 24 U/L (14-36); Bilirubin,Total 0.4 mg/dL (0.2-1.3); Blood Urea Nitrogen 23 mg/dL (7-17); Calcium 7.7 mg/dL (8.4-10.2); Carbon Dioxide > 40 mmol/L (22-30); Chloride 93 mmol/L (98-107); Estimated Glomerular Filt Rate 54; Glucose 160 mg/dL (65-105); Potassium 4.5 mmol/L (3.4-5.0); Sodium 136 mmol/L (137-145)
--- NOTE | 2020-10-17 08:27 | PM.IMPN ---
Progress Note: A&P Assessment and Plan (1) Acute systolic heart failure: Code(s): I50.21 - Acute systolic (congestive) heart failure Status: Acute Assessment and Plan: Will diurese patient with IV Lasix. Will review 2D echo and artery cardiology evaluation. Will do rule out CA protocol. Will monitor potassium. (2) Acute respiratory failure with hypoxia and hypercapnia: Code(s): J96.01 - Acute respiratory failure with hypoxia; J96.02 - Acute respiratory failure with hypercapnia Status: Acute Assessment and Plan: Will start BiPAP and workup pulmonary embolism. Will consult nuclear weapons mechanical specialist Dr. Mariano. (3) Elevated troponin: Code(s): R77.8 - Other specified abnormalities of plasma proteins Status: Acute Assessment and Plan: Cardiology consult and follow rule out CA protocol (4) IDDM (insulin dependent diabetes mellitus): Status: Acute Assessment and Plan: And start sliding scale insulin monitor glucose closely (5) Elevated WBC count: Code(s): D72.829 - Elevated white blood cell count, unspecified Status: Acute Assessment and Plan: Blood culture urine culture IV antibiotics and look for the source of infection Additional Plan Will continue to diureses patient. Bill continue to use BiPAP. Hemoglobin noted. Will monitor closely. Repeat chest x-ray shows mild congestive heart failure changes. Pulmonary consult noted. Subjective Date/time seen: 10/17/20 08:27 Interval history: Patient was seen during the morning rounds today. Patient has mild shortness of breath. No chest pain. No abdominal pain nausea no vomiting. Mood stable. No news complaints Review of Systems Review of Systems: All systems reviewed & are unremarkable except as noted in HPI and below ( the history and physical examination) Exam Narrative: Exam Narrative: Patient is in mild respiratory distress. HEENT examination shows slightly increased JVD. Lungs air entry is decreased and has rales at the bases. Heart examination shows S1-S2 possible S3 no murmur. Abdominal examination shows soft nontender bowel sounds positive no hepatosplenomegaly. Extremities bilateral BKA. Left lower extremity is wrapped in bandage from recent BKA UROLOGIST MD alert and oriented x3 moves all extremity. Mood stable Const: General: cooperative, well developed, alert and lethargic Nutritional Appearance: well nourished Orientation/consciousness: oriented to person, oriented to place, oriented to time and lethargic Limitations: physical limitations Other: Bilateral BKA HENMT: Head: normal to inspection Neuro: General: oriented to person, oriented to place and oriented to time Objective Data Vital Signs Vital Signs: Vital Signs - 24 hr 10/16/20 08:58 10/16/20 09:11 10/16/20 09:51 Temperature Pulse Rate 70 75 Respiratory Rate 18 Blood Pressure Pulse Oximetry 97 99 10/16/20 10:00 10/16/20 11:15 10/16/20 11:35 Temperature 36.2 C L Pulse Rate 75 70 Respiratory Rate 14 Blood Pressure 127/48 L Pulse Oximetry 98 98 10/16/20 12:00 10/16/20 14:00 10/16/20 15:47 Temperature 36.2 C L Pulse Rate 65 79 71 Respiratory Rate 16 Blood Pressure 113/49 L Pulse Oximetry 98 10/16/20 16:00 10/16/20 18:00 10/16/20 19:45 Temperature 36.3 C L Pulse Rate 63 75 70 Respiratory Rate 24 H Blood Pressure 120/46 L Pulse Oximetry 100 100 10/16/20 20:00 10/16/20 21:30 10/16/20 22:00 Temperature Pulse Rate 70 72 Respiratory Rate 24 H 14 Blood Pressure Pulse Oximetry 100 95 94 10/16/20 23:18 10/16/20 23:55 10/17/20 00:00 Temperature 36.3 C L Pulse Rate 67 70 70 Respiratory Rate 16 18 Blood Pressure 129/47 L Pulse Oximetry 85 L 92 97 10/17/20 01:52 10/17/20 04:00 10/17/20 05:39 Temperature 36.2 C L Pulse Rate 65 66 67 Respiratory Rate 26 H 17 Blood Pressure 118/46 L Pulse Oximetry 97 93 10/17/20 05:45 [place]
[2020-10-17] MEDS: GABAPENTIN 400 MG CAPSULE PO ×2 (08:35→16:43)
[2020-10-17] MEDS: CLOPIDOGREL BISULFATE 75 MG TABLET PO (08:35)
[2020-10-17] MEDS: PANTOPRAZOLE SODIUM IV 40 MG VIAL IV PUSH (08:35)
[2020-10-17] MEDS: lisinopriL 2.5 MG TABLET PO (08:35)
[2020-10-17] MEDS: POTASSIUM CHLORIDE 20 MEQ PACKET (FOR LIQUID) PO (08:35)
[2020-10-17] MEDS: ASPIRIN 325 MG TABLET PO (08:36)
[2020-10-17] MEDS: ATORVASTATIN 40 MG TABLET PO (08:36)
[2020-10-17] MEDS: DOCUSATE SODIUM 100 MG CAPSULE PO ×2 (08:36→16:45)
[2020-10-17] MEDS: AMIODARONE HCL 200 MG TABLET PO (08:36)
[2020-10-17] MEDS: polyethylene glycoL 3350 17 GM POWD.PACK PO (08:36)
[2020-10-17] MEDS: ALBUTEROL SULFATE (*SP) AEROSOL 1 PUFF 2 PUFF INHALATION ×4 (08:36→20:37)
[2020-10-17] MEDS: FERROUS SULFATE 324 MG TABLET PO ×3 (08:38→16:43)
[2020-10-17] MEDS: FUROSEMIDE INJ 40 MG/4 ML VIAL IV PUSH ×2 (08:38→20:38)
[2020-10-17 08:43] LABS: Glucose Point of Care 152 (65-105)
--- NOTE | 2020-10-17 08:47 | PM.CNCAR ---
Assessment and Plan Assessment and plan (1) Acute diastolic CHF (congestive heart failure): Code(s): I50.31 - Acute diastolic (congestive) heart failure Status: Acute Assessment and Plan: Patient is a 80-year-old woman with history of coronary artery disease status post coronary artery bypass grafting (1994), heart failure with preserved ejection fraction, hypertension, left bundle branch block, diabetes mellitus, peripheral arterial disease status post of bilateral [id number] amputations (right BKA several years ago, with recent left BKA), former tobacco dependence (50 pack years, quit 7 years ago), osteomyelitis, emphysema noted on CTA (10/15/2020), who is seen in cardiac consultation for dyspnea with acute on chronic heart failure with preserved ejection fraction. -she has acute on chronic heart failure with preserved ejection fraction occurring in the setting of recent xgjur-[id number]-[id number] amputation, with possible pneumonia and CT evidence of emphysema with moderate pulmonary hypertension previously noted on echo. -continue diuresis with intravenous Lasix with careful monitoring of renal function and electrolytes. Obtain TSH in setting of her current maintenance dose amiodarone although its indication at present is unclear. -monitor her progressive anemia this admission and transfuse to keep hemoglobin at least 8.0. -Recently, the patient had echocardiogram 09/23/2020: Mild left ventricular hypertrophy, normal left ventricular systolic function with left ventricular ejection fraction 55-60%, [id number] tricuspid regurgitation, moderate pulmonary hypertension with pulmonary artery systolic pressure 54 mmHg. -Recently, the patient had a Lexiscan nuclear stress test 06/2020 which showed no evidence of ischemia but an apical infarction, left ventricular ejection fraction 56%. (2) CAD (coronary artery disease): Code(s): I25.10 - Atherosclerotic heart disease of [place] coronary artery without angina pectoris Status: Acute Assessment and Plan: -she has a history of CABG in 1994. -patient denies chest pain and initial troponin negative for injury earlier this admission. -Recently, the patient had a Lexiscan nuclear stress test 06/2020 which showed no evidence of ischemia but an apical infarction, left ventricular ejection fraction 56%. -given declining hemoglobin this admission, decreased aspirin dose from 325 mg to 81 mg daily, with continuation of Plavix as tolerated. -obtain fasting lipid panel and continue statin. (3) Acute and chronic respiratory failure: Code(s): J96.20 - Acute and chronic respiratory failure, unspecified whether with hypoxia or hypercapnia Status: Acute Assessment and Plan: -she has acute on chronic respiratory failure in the setting of acute on chronic heart failure with preserved ejection fraction and possible pneumonia, with CT evidence of emphysema with moderate pulmonary hypertension previously noted on echo. -antibiotics as per primary and Pulmonary Services. -CTA of the chest negative for pulmonary embolism this admission. -BiPAP as per Pulmonary Service. (4) Anemia: Code(s): D64.9 - Anemia, unspecified Status: Acute Assessment and Plan: -monitor her progressive anemia this admission and transfuse to keep hemoglobin at least 8.0. -hemoglobin was initially 10.0 on 10/15/2020 then reduced to 8.4 on 10/17/2020. History of Present Illness History of Present Illness Consult date/time: 10/17/20 08:47 Patient is a 80-year-old woman with history of coronary artery disease status post coronary artery bypass grafting (1994), heart failure with preserved ejection fraction, hypertension, left bundle branch block, diabetes mellitus, peripheral arterial disease status post of bilateral [id number] amputations (right BKA several years ago, with recent left BKA), former tobacco dependence (50 pack years, quit 7 years ago), osteomyelitis, emphysema noted on CTA (
--- NOTE | 2020-10-17 09:21 | PM.PNPUL ---
Progress Note: A&P Additional Plan Stable. BiPAP to Q night and p.r.n. days. Time Spent With Patient Time with patient: 15 - 25 minutes Subjective Date/time seen: 10/17/20 09:21 stable overnight. New ABG this a.m. looks stable/better. Exam Narrative: Exam Narrative: chest clear with greatly reduced breath sounds. Heart sounds distant but seemed regular. No neck adenopathy. Objective Data Vital Signs Vital Signs: Vital Signs - 24 hr 10/16/20 09:51 10/16/20 10:00 10/16/20 11:15 Temperature 36.2 C L Pulse Rate 75 75 70 Respiratory Rate 18 14 Blood Pressure 127/48 L Pulse Oximetry 99 98 10/16/20 11:35 10/16/20 12:00 10/16/20 14:00 Temperature Pulse Rate 65 79 Respiratory Rate Blood Pressure Pulse Oximetry 98 10/16/20 15:47 10/16/20 16:00 10/16/20 18:00 Temperature 36.2 C L Pulse Rate 71 63 75 Respiratory Rate 16 Blood Pressure 113/49 L Pulse Oximetry 98 100 10/16/20 19:45 10/16/20 20:00 10/16/20 21:30 Temperature 36.3 C L Pulse Rate 70 70 Respiratory Rate 24 H 24 H Blood Pressure 120/46 L Pulse Oximetry 100 100 95 10/16/20 22:00 10/16/20 23:18 10/16/20 23:55 Temperature Pulse Rate 72 67 70 Respiratory Rate 14 16 Blood Pressure Pulse Oximetry 94 85 L 92 10/17/20 00:00 10/17/20 01:52 10/17/20 04:00 Temperature 36.3 C L 36.2 C L Pulse Rate 70 65 66 Respiratory Rate 18 26 H Blood Pressure 129/47 L 118/46 L Pulse Oximetry 97 97 10/17/20 05:39 10/17/20 05:45 10/17/20 08:00 Temperature 36.2 C L Pulse Rate 67 63 66 Respiratory Rate 17 18 Blood Pressure 122/45 L Pulse Oximetry 93 97 10/17/20 08:36 Temperature Pulse Rate 66 Respiratory Rate Blood Pressure Pulse Oximetry Intake/Output Intake/Output: Intake & Output 10/14/20 10/15/20 10/16/20 10/17/20 23:59 23:59 23:59 23:59 Intake Total 290 650 200 Output Total 2826 1214 4586 [facility] -2748 -[id number] -5748 Meds/Results Medications: Active Medications Generic Name Dose Route Start Last Admin Trade Name Freq PRN Reason Stop Dose Admin Hydrocodone Bitart/Acetaminophen 1 tab 10/16/20 22:04 10/17/20 04:01 Hydrocodone/Acetaminophen (*Crx) 5-325 Mg Tablet PO 1 tab Q6H PRN Administration Pain Rated 4-6 Albuterol 2 puff 10/15/20 17:00 10/17/20 08:36 Albuterol Sulfate (*Sp) Aerosol 1 Puff INHALATION 2 puff QID NEW Administration Amiodarone HCl 200 mg 10/16/20 09:00 10/17/20 08:36 Amiodarone Hcl 200 Mg Tablet PO 200 mg DAILY NEW Administration Aspirin 325 mg 10/16/20 09:00 10/17/20 08:36 Aspirin 325 Mg Tablet PO 325 mg DAILY NEW Administration Atorvastatin Calcium 40 mg 10/16/20 09:00 10/17/20 08:36 Atorvastatin 40 Mg Tablet PO 40 mg DAILY NEW Administration Clopidogrel Bisulfate 75 mg 10/16/20 09:00 10/17/20 08:35 Clopidogrel Bisulfate 75 Mg Tablet PO 75 mg DAILY NEW Administration Dextrose 12.5 gm 10/15/20 14:48 Dextrose 50% 25 Gm/50 Ml Syringe IV PUSH PRN PRN Hypoglycemia Protocol Docusate Sodium 100 mg 10/15/20 17:00 10/17/20 08:36 Docusate Sodium 100 Mg Capsule PO 100 mg BID NEW Administration Ferrous Sulfate 324 mg 10/17/20 09:00 10/17/20 08:38 Ferrous Sulfate 324 Mg Tablet PO 324 mg TID NEW Administration Furosemide 40 mg 10/15/20 21:00 10/17/20 08:38 Furosemide Inj 40 Mg/4 Ml Vial IV PUSH 40 mg Q12HR NEW Administration Gabapentin 400 mg 10/15/20 17:00 10/17/20 08:35 Gabapentin 400 Mg Capsule PO 400 mg BID NEW Administration Glucagon 1 mg 10/15/20 14:48 Glucagon For Inj 1 Mg Vial IM PRN PRN Hypoglycemia Protocol Glucose 15 gm 10/15/20 14:48 10/16/20 06:55 Glucose Oral Gel 15 Gm Of Glucse In 37.5 Gm Tube PO 15 gm PRN PRN Administration Hypoglycemia Protocol Ceftriaxone Sodium/Dextrose 1 gm in 50 mls @ 100 mls/hr 10/15/20 15:00 10/16/20 15:12 Rocephin 1 Gm/D5w 50
[2020-10-17 12:28] LABS: Glucose Point of Care 242 (65-105)
[2020-10-17] MEDS: INSULIN ASPART (*BKC) 100 UNITS/ML SUB-Q ×2 (12:31→16:42)
[2020-10-17] MEDS: COLLAGENASE OINT 30 GM TUBE 1 APPLIC TOPICAL (12:31)
--- NOTE | 2020-10-17 15:03 | PM.CNOR ---
Assessment and Plan Assessment and plan (1) Postoperative wound dehiscence: Qualifiers: Encounter type: initial encounter Qualified Code(s): T81.31XA - Disruption of external operation (surgical) wound, not elsewhere classified, initial encounter Code(s): T81.31XA - Disruption of external operation (surgical) wound, not elsewhere classified, initial encounter Status: Acute Assessment and Plan: 19 days status post left below-knee amputation which was done on an urgent basis for left foot osteomyelitis and nonhealing diabetic foot ulcers. Patient with elevated operative risk given her heart and pulmonary status as well as peripheral arterial disease which is permanent, diabetes, neuropathy and poor nutrition. History of right Below-knee amputation. [facility] developed wound dehiscence, dressing changes started there. Now with slough and necrosis. Elevated risk for proceeding to the operating room due to heart and lungs. Discussed with patient, we will plan bedside debridement of the left below-knee amputation wound. Santyl ointment and dressing changes instituted. We will try and obtain wound VAC to treat after debridement. Risks, benefits and alternatives of treatment discussed in detail with the patient. She verbalized understanding and agreement with the plan and would like to proceed. (2) Peripheral arterial occlusive disease: Code(s): I77.9 - Disorder of arteries and arterioles, unspecified Status: Acute History of Present Illness HPI Consult date: 10/17/20 Requesting physician: Chidi Paulino MD Consult reason: other (Left below-knee amputation wound dehiscence) Chief complaint: acute on chronic respiratory failure/CHF Narrative: 80-year-old woman known to me for previous left foot osteomyelitis, diabetic foot ulcer and peripheral arterial disease. Status post below-knee amputation September 28, 2020. [facility] to [facility] after prolonged postoperative course secondary to congestive heart failure and pulmonary edema. Patient returned for admission October 15 to [facility]. I have been asked to see her for the left leg surgical wound. She denies any new pain or fever. They have been doing dressing changes. They did have a wound physician at the [facility] but I do not have records of their findings or treatment. At the time of discharge on October 04 she had sutures in place and a clean dry incision. Review of Systems Constitutional: Constitutional: Denies chills and Reports fatigue Eyes: Eyes: Reports no additional eye complaints ENT: Reports Normal hearing present, Denies epistaxis and Denies nasal congestion Cardiovascular: Cardiovascular: Denies chest pain, Denies leg edema, Denies lightheadedness and Denies palpitations Respiratory: Respiratory: Denies chest congestion, Denies cough, Denies hemoptysis, Reports dyspnea and Reports dyspnea on exertion Gastrointestinal: Gastrointestinal: Denies abdominal pain, Denies hematochezia and Denies hematemesis Genitourinary: Genitourinary: Denies hematuria and Denies dysuria Musculoskeletal: Musculoskeletal: Reports other ( Bilateral leg amputations) Integumentary/Breasts: Skin/Breast: Denies rash Neurologic: Denies Abnormal speech present and Denies headache(s) Psychiatric: Psychiatric: Denies no additional psychiatric complaints Endocrine: Endocrine: Denies cold intolerance, Denies heat intolerance and Denies polyphagia Hematologic/Lymphatic: Hematologic/Lymphatic: Reports easy bleeding and Reports easy bruising PMFSH Past Medical History Medical History Anemia CAD (coronary artery disease) CHF (congestive heart failure) Diabetes mellitus HTN (hypertension) LBBB (left bundle branch block) NSTEMI (non-ST elevated myocardial infarction) Pt denies CA Osteomyelitis PAD (peripheral artery disease) Surgical History [facility]
[2020-10-17 16:40] LABS: Glucose Point of Care 204 (65-105)
--- NOTE | 2020-10-17 19:29 | PC.NURSE ---
RECEIVED PT FROM IMU PER BED. VOICES NO C/O AT PRESENT
[2020-10-17] MEDS: INSULIN GLARGINE (*BKC) 100 UNITS/ML 10 UNITS SUB-Q (20:38)
[2020-10-17 20:57] LABS: Glucose Point of Care 241 (65-105)
[2020-10-17] MEDS: MIRTAZAPINE 15 MG TABLET PO (21:56)
[2020-10-18] VITALS (13 sets, daily range): BP systolic 108–145; BP diastolic 44–63; PULSE 71–90; RESP 16–23; TEMP 36.2–36.9; O2SAT 92–98
[2020-10-18 05:34] LABS: Basophils Absolute Auto 0.1 K/mm3 (0.0-0.1); Basophils Percent Auto 1.1 % (0.2-1.2); Eosinophils Absolute Auto 0.2 K/mm3 (0-0.3); Eosinophils Percent Auto 2.5 % (0-4.4); Hematocrit 31.1 % (37.0-47.0); Hemoglobin 8.9 g/dL (12.0-15.0); Immature Granulocyte Absolute 0.13 K/mm3 (0.00-0.031); Immature Granulocyte Percent A 1.4 % (0-0.5); Lymphocytes Absolute Auto 1.85 K/mm3 (0.9-3.2); Lymphocytes Percent Auto 20.1 % (18.3-44.2); Mean Corpuscular HGB Conc 28.6 g/dl (32-36); Mean Corpuscular Hemoglobin 27.6 pg (26-34); Mean Corpuscular Volume 96.3 fl (80-100); Mean Platelet Volume 10.4 fl (7.4-10.4); Monocytes Absolute Auto 0.7 K/mm3 (0.1-0.6); Monocytes Percent Auto 7.6 % (2.6-8.5); Neutrophils Absolute Auto 6.2 K/mm3 (1.3-6.7); Neutrophils Percent Auto 67.3 % (45.5-73.1); Platelet Count Result 291 k/mm3 (150-375); Red Blood Count 3.23 M/mm3 (4.2-5.4); Red Cell Distribution Width 17.8 % (11.5-14.5); White Blood Count 9.2 K/mm3 (4.5-10.0)
[2020-10-18 05:46] LABS: Blood Urea Nitrogen 22 mg/dL (7-17); Calcium 8.1 mg/dL (8.4-10.2); Carbon Dioxide > 40 mmol/L (22-30); Chloride 91 mmol/L (98-107); Cholesterol 84 mg/dL (0-200); Estimated Glomerular Filt Rate 54; Glucose 190 mg/dL (65-105); HDL Direct 26 mg/dL; Magnesium 2.1 mg/dL (1.6-2.3); Potassium 4.5 mmol/L (3.4-5.0); Sodium 136 mmol/L (137-145); Triglycerides 107 mg/dL (<150)
[2020-10-18 05:56] LABS: LDL Cholesterol Direct 32 mg/dL
[2020-10-18 06:17] LABS: Platelet Estimate Increased (Adequate); Target Cells 1+ (NORMAL)
[2020-10-18 06:18] LABS: Hypochromasia 2+ (NORMAL)
[2020-10-18 08:13] LABS: Free T4 Free Thyroxine Reflex 1.02 ng/dL (0.78-2.19)
[2020-10-18 08:48] LABS: Glucose Point of Care 153 (65-105)
[2020-10-18] MEDS: FERROUS SULFATE 324 MG TABLET PO ×3 (08:58→17:15)
[2020-10-18] MEDS: AMIODARONE HCL 200 MG TABLET PO (08:58)
[2020-10-18] MEDS: CLOPIDOGREL BISULFATE 75 MG TABLET PO (08:59)
[2020-10-18] MEDS: lisinopriL 2.5 MG TABLET PO (08:59)
[2020-10-18] MEDS: ASPIRIN 325 MG TABLET PO (08:59)
[2020-10-18] MEDS: FUROSEMIDE INJ 40 MG/4 ML VIAL IV PUSH ×2 (08:59→20:46)
[2020-10-18] MEDS: GABAPENTIN 400 MG CAPSULE PO ×2 (08:59→17:14)
[2020-10-18] MEDS: ATORVASTATIN 40 MG TABLET PO (08:59)
[2020-10-18] MEDS: PANTOPRAZOLE SODIUM IV 40 MG VIAL IV PUSH (08:59)
[2020-10-18] MEDS: POTASSIUM CHLORIDE 20 MEQ PACKET (FOR LIQUID) PO (09:00)
[2020-10-18 09:10] LABS: Total Triiodothyronine (T3) 0.71 NG/ML (0.97-1.69)
[2020-10-18] MEDS: INSULIN GLARGINE (*BKC) 100 UNITS/ML 10 UNITS SUB-Q ×2 (09:15→20:45)
[2020-10-18] MEDS: polyethylene glycoL 3350 17 GM POWD.PACK PO (09:17)
[2020-10-18] MEDS: ALBUTEROL SULFATE (*SP) AEROSOL 1 PUFF 2 PUFF INHALATION ×4 (09:17→20:46)
[2020-10-18] MEDS: DOCUSATE SODIUM 100 MG CAPSULE PO ×2 (09:17→17:14)
--- NOTE | 2020-10-18 09:53 | PM.PNCARD ---
Progress Note: A&P Assessment and Plan (1) Acute diastolic CHF (congestive heart failure): Code(s): I50.31 - Acute diastolic (congestive) heart failure Status: Acute Assessment and Plan: 80-y/o with h/o CAD s/p CABG (1994),HFpEF, LBBB, HTN, DM, PVD s/p bilateral BKA (recent left BKA), former tobacco dependence (50 pack years, quit 7 years ago), emphysema who is seen in cardiac consultation for dyspnea with acute on chronic heart failure with preserved ejection fraction. -She is diuresing well and now down to 2 liters of oxygen via nasal cannula -Creatinine stable with diuresis. Will continue on current dose of lasix -She is scheduled for debridement later today. She appears overall better compensated from CHF standpoint but coninutes to need further diuresis. She had recent Nuc stress test with no ischemia. Continue Amiodarone for paroxysmal A fib. Continue ASA. May hold Plavix in the setting of anemia and need for debridement echocardiogram 09/23/2020: Mild left ventricular hypertrophy, normal left ventricular systolic function with left ventricular ejection fraction 55-60%, [id number] tricuspid regurgitation, moderate pulmonary hypertension with pulmonary artery systolic pressure 54 mmHg. Lexiscan nuclear stress test 06/2020 which showed no evidence of ischemia but an apical infarction, left ventricular ejection fraction 56%. (2) CAD (coronary artery disease): Code(s): I25.10 - Atherosclerotic heart disease of [place] coronary artery without angina pectoris Status: Acute Assessment and Plan: -Stable -patient denies chest pain and troponin negative for injury earlier this admission. -given declining hemoglobin will hold plavix . (3) Acute and chronic respiratory failure: Code(s): J96.20 - Acute and chronic respiratory failure, unspecified whether with hypoxia or hypercapnia Status: Acute Assessment and Plan: -Multifactorial with acute on chronic heart failure, emphysema, pulmonary hypertension, likely sleep apnea suggested by body habitus -antibiotics as per primary and Pulmonary Services. -CTA of the chest negative for pulmonary embolism this admission. -BiPAP as per Pulmonary Service. (4) Anemia: Code(s): D64.9 - Anemia, unspecified Status: Acute Assessment and Plan: -With recent surgery. Hold plavix Subjective Date/time seen: 10/18/20 09:53 She feels a lot better . on Bipap overnight. Now on 2 liters of oxygen via nasal cannula Denies chest pain. Scheduled for debridement later today for dehiscence of stump Review of Systems Review of Systems: All systems reviewed & are unremarkable except as noted in HPI and below Exam Narrative: Exam Narrative: Exam Narrative: Older white woman in no acute distress.. Const: General: comfortable HENMT: General nose exam: no epistaxis Eyes: EOM: EOMs intact bilaterally Neck: Neck: supple and no JVD Resp: No wheezing or stridor. In no respiratory distress. Cardio: Rate: regular rate Rhythm: regular rhythm, no heave. GI: Inspection: non-distended Skin: General skin exam: normal color Neuro: Cognition (Neuro): normal cognition Speech: normal speech No focal weakness noted. Extrem: General: edema Other: Has dependent edema of thighs, hips, back, panniculus. Psych: Mental Status: mental status grossly normal Affect: normal affect Other: Knows she is at [facility] and this is Dec. Objective Data Vital Signs Vital Signs: Vital Signs - 24 hr 10/17/20 12:00 10/17/20 16:00 10/17/20 20:00 Temperature 36.2 C L 35.9 C L 36.2 C L Pulse Rate 72 72 77 Respiratory Rate 20 20 22 H Blood Pressure 126/52 L 121/57 L 130/59 L Pulse Oximetry 96 92 98 10/18/20 00:00 10/18/20 01:03 10/18/20 02:54 Temperature 36.5 C Pulse Rate 78 Respiratory Rate 20 23 H 19 Blood Pressure 137/52 L Pulse Oximetry 96 10/18/20 04:00 10/18/20 08:58 Temperature 36.2 C L Pulse Ra
--- NOTE | 2020-10-18 11:51 | PM.PROC ---
Procedure Note - Detailed Date of procedure: 10/18/20 Pre-op diagnosis: acute on chronic respiratory failure/CHF Left below-knee amputation wound dehiscence, diabetes with neuropathy, peripheral arterial disease Post-op diagnosis: same Procedure performed: excisional debridement deep left below-knee amputation wound Description of procedure: Risks, benefits and alternatives of surgery discussed with the patient. Patient at high risk for anesthesia secondary to cardiac and pulmonary comorbidities. Plan for bedside debridement. informed consent given by the patient. Correct patient and site of surgery identified. Left leg prepped and draped usual sterile surgical fashion using an alcohol prep solution. Local anesthetic with 1% lidocaine with epinephrine. Fifteen blade knife used to excise necrotic, devitalized and nonhealing tissue from the left leg wound dehiscence as well as wound slough. Sharp scissors used to remove larger pieces of tissue including skin, subcutaneous tissue, muscle. Previous Prolene sutures which were in place were removed prior to debridement. We were able to palpate tibial bone in the wound depth. No purulence noted. Wound measured 9 cm x 8.5 cm with 3.5 cm depth. Initially with 90% slough. Approximately 10% slough at the end of debridement. Instill wound VAC dressing applied. Implants: None Anesthesia: local Surgeon: Alexy Huerta MD Estimated blood loss (mL): 5 Tourniquet time (min): 0 Drains: No Packing: Yes Pathology: none sent Complications: None Condition: stable Disposition: floor
[2020-10-18 12:40] LABS: Glucose Point of Care 227 (65-105)
[2020-10-18] MEDS: INSULIN ASPART (*BKC) 100 UNITS/ML SUB-Q ×2 (12:40→17:23)
--- NOTE | 2020-10-18 12:46 | PM.PNPUL ---
Progress Note: A&P Additional Plan Full code confirmed. I feel she should go home with BiPAP. She still may need additional debridement. Following. Time Spent With Patient Time with patient: 25 - 35 minutes Subjective Date/time seen: 10/18/20 12:46 Doing well. Does not have CPAP or BiPAP at home -with her pCO2 values of 67 and 79 recently, she should readily qualify for it. Discussed code status-she wants full code. Exam Narrative: Exam Narrative: Chest sounds clear with reduced breath sounds and heart sounds are regular. Objective Data Vital Signs Vital Signs: Vital Signs - 24 hr 10/17/20 16:00 10/17/20 20:00 10/18/20 00:00 Temperature 35.9 C L 36.2 C L 36.5 C Pulse Rate 72 77 78 Respiratory Rate 20 22 H 20 Blood Pressure 121/57 L 130/59 L 137/52 L Pulse Oximetry 92 98 96 10/18/20 01:03 10/18/20 02:54 10/18/20 04:00 Temperature 36.2 C L Pulse Rate 75 Respiratory Rate 23 H 19 20 Blood Pressure 134/46 L Pulse Oximetry 98 10/18/20 08:00 10/18/20 08:58 10/18/20 09:20 Temperature 36.4 C L Pulse Rate 84 80 Respiratory Rate 20 Blood Pressure 145/63 H Pulse Oximetry 94 95 Intake/Output Intake/Output: Intake & Output 10/15/20 10/16/20 10/17/20 10/18/20 23:59 23:59 23:59 23:59 Intake Total 734 261 7036 390 Output Total 2750 3378 5375 [id number] [facility]2460 -2675 -[phone] [phone] Meds/Results Medications: Active Medications Generic Name Dose Route Start Last Admin Trade Name Freq PRN Reason Stop Dose Admin Hydrocodone Bitart/Acetaminophen 1 tab 10/16/20 22:04 10/17/20 04:01 Hydrocodone/Acetaminophen (*Crx) 5-325 Mg Tablet PO 1 tab Q6H PRN Administration Pain Rated 4-6 Albuterol 2 puff 10/15/20 17:00 10/18/20 09:17 Albuterol Sulfate (*Sp) Aerosol 1 Puff INHALATION 2 puff QID NEW Administration Amiodarone HCl 200 mg 10/16/20 09:00 10/18/20 08:58 Amiodarone Hcl 200 Mg Tablet PO 200 mg DAILY NEW Administration Aspirin 325 mg 10/18/20 09:00 10/18/20 08:59 Aspirin 325 Mg Tablet PO 325 mg DAILY NEW Administration Atorvastatin Calcium 40 mg 10/16/20 09:00 10/18/20 08:59 Atorvastatin 40 Mg Tablet PO 40 mg DAILY NEW Administration Collagenase 1 applic 10/17/20 09:00 10/18/20 11:05 Collagenase Oint 30 Gm Tube TOPICAL Not Given QAM NEW Dextrose 12.5 gm 10/15/20 14:48 Dextrose 50% 25 Gm/50 Ml Syringe IV PUSH PRN PRN Hypoglycemia Protocol Docusate Sodium 100 mg 10/15/20 17:00 10/18/20 09:17 Docusate Sodium 100 Mg Capsule PO 100 mg BID NEW Administration Ferrous Sulfate 324 mg 10/17/20 09:00 10/18/20 08:58 Ferrous Sulfate 324 Mg Tablet PO 324 mg TID NEW Administration Furosemide 40 mg 10/15/20 21:00 10/18/20 08:59 Furosemide Inj 40 Mg/4 Ml Vial IV PUSH 40 mg Q12HR NEW Administration Gabapentin 400 mg 10/15/20 17:00 10/18/20 08:59 Gabapentin 400 Mg Capsule PO 400 mg BID NEW Administration Glucagon 1 mg 10/15/20 14:48 Glucagon For Inj 1 Mg Vial IM PRN PRN Hypoglycemia Protocol Glucose 15 gm 10/15/20 14:48 10/16/20 06:55 Glucose Oral Gel 15 Gm Of Glucse In 37.5 Gm Tube PO 15 gm PRN PRN Administration Hypoglycemia Protocol Ceftriaxone Sodium/Dextrose 1 gm in 50 mls @ 100 mls/hr 10/15/20 15:00 10/17/20 14:59 Rocephin 1 Gm/D5w 50 Ml IVPB Infused Q24H NEW Infusion Dextrose 1,000 mls @ 100 mls/hr 10/15/20 14:48 Dextrose 5% 1,000 Ml IVPB PRN PRN Hypoglycemia Protocol Insulin Aspart 2 - 5 units 10/15/20 17:00 10/18/20 12:40 Insulin Aspart (*Bkc) 100 Units/Ml SUB-Q 2 units TIDWM NEW Administration Protocol Insulin Glargine 10 units 10/17/20 09:00 10/18/20 09:15 Insulin Glargine (*Bkc) 100 Units/Ml SUB-Q 10 units Q12HR NEW Administration Lisinopril 2.5 mg 10/16/20 09:00 10/18/20 08:59 Lisinopril 2.5 Mg Tablet PO 2.5 mg DAILY NEW Administration M
--- NOTE | 2020-10-18 13:10 | PM.IMPN ---
Progress Note: A&P Assessment and Plan (1) Postoperative wound dehiscence: Qualifiers: Encounter type: initial encounter Qualified Code(s): T81.31XA - Disruption of external operation (surgical) wound, not elsewhere classified, initial encounter Code(s): T81.31XA - Disruption of external operation (surgical) wound, not elsewhere classified, initial encounter Status: Acute Assessment and Plan: Pt is having dressing changes, seen by Orthopedics Additional Plan (1) Acute systolic heart failure: Code(s): I50.21 - Acute systolic (congestive) heart failure Status: Acute Assessment and Plan: Will diurese patient with IV Lasix. Cardiology consulting (2) Acute respiratory failure with hypoxia and hypercapnia: Code(s): J96.01 - Acute respiratory failure with hypoxia; J96.02 - Acute respiratory failure with hypercapnia Status: Acute Assessment and Plan: PRN bipap pulmonology consulting (3) Elevated troponin: Code(s): R77.8 - Other specified abnormalities of plasma proteins Status: Acute Assessment and Plan: Cardiology consult and follow rule out [place] protocol (4) IDDM (insulin dependent diabetes mellitus): Status: Acute Assessment and Plan: And start sliding scale insulin monitor glucose closely (5) Elevated WBC count: Code(s): D72.829 - Elevated white blood cell count, unspecified Status: Acute Assessment and Plan: UC positive for EColi, pt is on iv rocephin Subjective Date/time seen: 10/18/20 13:10 Interval history: Patient was seen during the morning rounds today. Pt having stump dressing changed. Known history of congestive heart failure, chronic respiratory failure, on oxygen, diabetes mellitus recently had left below knee amputation about [address] Huerta. Seen by orthopedics. cardiology and pulmonology Review of Systems Review of Systems: All systems reviewed & are unremarkable except as noted in HPI and below Exam Narrative: Exam Narrative: Patient elderly lady Lungs decreased air entry Heart examination shows S1-S2 possible S3 no murmur. Abdominal examination shows soft nontender bowel sounds positive no hepatosplenomegaly. Extremities bilateral BKA. Left lower extremity is wrapped in bandage from recent BKA [employer] alert and oriented x3 moves all extremity. Mood stable Neuro oriented x3 Objective Data Vital Signs Vital Signs: Vital Signs - 24 hr 10/17/20 16:00 10/17/20 20:00 10/18/20 00:00 Temperature 35.9 C L 36.2 C L 36.5 C Pulse Rate 72 77 78 Respiratory Rate 20 22 H 20 Blood Pressure 121/57 L 130/59 L 137/52 L Pulse Oximetry 92 98 96 10/18/20 01:03 10/18/20 02:54 10/18/20 04:00 Temperature 36.2 C L Pulse Rate 75 Respiratory Rate 23 H 19 20 Blood Pressure 134/46 L Pulse Oximetry 98 10/18/20 08:00 10/18/20 08:58 10/18/20 09:20 Temperature 36.4 C L Pulse Rate 84 80 Respiratory Rate 20 Blood Pressure 145/63 H Pulse Oximetry 94 95 Intake/Output Intake/Output: Intake & Output 10/15/20 10/16/20 10/17/20 10/18/20 23:59 23:59 23:59 23:59 Intake Total 552 330 3337 390 Output Total 0153 3375 5375 5325 [facility] [place] -[phone] Meds/Results Medications: Active Medications Generic Name Dose Route Start Last Admin Trade Name Freq PRN Reason Stop Dose Admin Hydrocodone Bitart/Acetaminophen 1 tab 10/16/20 22:04 10/17/20 04:01 Hydrocodone/Acetaminophen (*Crx) 5-325 Mg Tablet PO 1 tab Q6H PRN Administration Pain Rated 4-6 Albuterol 2 puff 10/15/20 17:00 10/18/20 09:17 Albuterol Sulfate (*Sp) Aerosol 1 Puff INHALATION 2 puff QID NEW Administration Amiodarone HCl 200 mg 10/16/20 09:00 10/18/20 08:58 Amiodarone Hcl 200 Mg Tablet PO 200 mg DAILY NEW Administration Aspirin 325 mg 10/18/20 09:00 10/18/20 08:59 Aspirin 325 Mg Tablet PO 325 mg DAILY NEW Administration Atorvastatin Calcium 40
[2020-10-18 17:15] LABS: Glucose Point of Care 282 (65-105)
[2020-10-18] MEDS: MIRTAZAPINE 15 MG TABLET PO (20:46)
[2020-10-18 21:25] LABS: Glucose Point of Care 282 (65-105)
[2020-10-19] VITALS (11 sets, daily range): BP systolic 106–126; BP diastolic 44–54; PULSE 74–87; RESP 16–21; TEMP 36–36.2; O2SAT 84–97
[2020-10-19 05:56] LABS: Hemoglobin 9.5 g/dL (12.0-15.0); Mean Corpuscular HGB Conc 28.8 g/dl (32-36); Mean Corpuscular Hemoglobin 27.6 pg (26-34); Mean Corpuscular Volume 95.9 fl (80-100); Mean Platelet Volume 10.4 fl (7.4-10.4); Platelet Count Result 271 k/mm3 (150-375); Red Blood Count 3.44 M/mm3 (4.2-5.4); Red Cell Distribution Width 18.1 % (11.5-14.5); White Blood Count 9.3 K/mm3 (4.5-10.0)
[2020-10-19 06:18] LABS: Blood Urea Nitrogen 20 mg/dL (7-17); Calcium 8.2 mg/dL (8.4-10.2); Carbon Dioxide > 40 mmol/L (22-30); Chloride 91 mmol/L (98-107); Estimated Glomerular Filt Rate 54; Glucose 206 mg/dL (65-105); Potassium 4.2 mmol/L (3.4-5.0); Sodium 138 mmol/L (137-145)
[2020-10-19 07:27] LABS: Glucose Point of Care 170 (65-105)
[2020-10-19] MEDS: FERROUS SULFATE 324 MG TABLET PO ×3 (08:11→17:06)
[2020-10-19] MEDS: POTASSIUM CHLORIDE 20 MEQ PACKET (FOR LIQUID) PO (08:11)
[2020-10-19] MEDS: FUROSEMIDE INJ 40 MG/4 ML VIAL IV PUSH (08:11)
[2020-10-19] MEDS: ASPIRIN 325 MG TABLET PO (08:11)
[2020-10-19] MEDS: polyethylene glycoL 3350 17 GM POWD.PACK PO (08:11)
[2020-10-19] MEDS: GABAPENTIN 400 MG CAPSULE PO ×2 (08:12→17:06)
[2020-10-19] MEDS: lisinopriL 2.5 MG TABLET PO (08:12)
[2020-10-19] MEDS: DOCUSATE SODIUM 100 MG CAPSULE PO ×2 (08:12→17:05)
[2020-10-19] MEDS: ATORVASTATIN 40 MG TABLET PO (08:12)
[2020-10-19] MEDS: AMIODARONE HCL 200 MG TABLET PO (08:12)
[2020-10-19] MEDS: ALBUTEROL SULFATE (*SP) AEROSOL 1 PUFF 2 PUFF INHALATION ×3 (08:13→17:05)
[2020-10-19] MEDS: INSULIN GLARGINE (*BKC) 100 UNITS/ML 10 UNITS SUB-Q (08:19)
[2020-10-19] MEDS: PANTOPRAZOLE 40 MG TABLET PO (09:30)
--- NOTE | 2020-10-19 09:46 | PM.PNCARD ---
Progress Note: A&P Assessment and Plan (1) Acute diastolic CHF (congestive heart failure): Code(s): I50.31 - Acute diastolic (congestive) heart failure Status: Acute Assessment and Plan: 80-y/o with h/o CAD s/p CABG (1994),HFpEF, LBBB, HTN, DM, PVD s/p bilateral BKA (recent left BKA), former tobacco dependence (50 pack years, quit 7 years ago), emphysema who is seen in cardiac consultation for dyspnea with acute on chronic heart failure with preserved ejection fraction. -She is diuresing well and creatinine is stable -Continue current dose of lasix 40 BID. Consider acetazolamide to assist with diuresis and also for contraction alkalosis -Continue Amiodarone for paroxysmal A fib. Continue ASA. May hold Plavix in the setting of anemia and need for debridement echocardiogram 09/23/2020: Mild left ventricular hypertrophy, normal left ventricular systolic function with left ventricular ejection fraction 55-60%, [id number] tricuspid regurgitation, moderate pulmonary hypertension with pulmonary artery systolic pressure 54 mmHg. Lexiscan nuclear stress test 06/2020 which showed no evidence of ischemia but an apical infarction, left ventricular ejection fraction 56%. (2) CAD (coronary artery disease): (2) Acute respiratory failure with hypoxia and hypercapnia: Code(s): J96.01 - Acute respiratory failure with hypoxia; J96.02 - Acute respiratory failure with hypercapnia Status: Acute Assessment and Plan: -Multifactorial with acute on chronic heart failure, emphysema, pulmonary hypertension, likely sleep apnea suggested by body habitus -antibiotics as per primary and Pulmonary Services. -CTA of the chest negative for pulmonary embolism this admission. -BiPAP as per Pulmonary Service. (3) CAD (coronary artery disease): Code(s): I25.10 - Atherosclerotic heart disease of [place] coronary artery without angina pectoris Status: Acute Assessment and Plan: -Stable -Patient denies chest pain and troponin negative for injury earlier this admission. -Given declining hemoglobin will hold plavix Subjective Date/time seen: 10/19/20 09:46 Tolerated debridement well yesterday. Shortness of breath continues to improve. Denies chest pain Review of Systems Review of Systems: All systems reviewed & are unremarkable except as noted in HPI and below Exam Narrative: Exam Narrative: Exam Narrative: Older white woman in no acute distress.. Const: General: comfortable HENMT: General nose exam: no epistaxis Eyes: EOM: EOMs intact bilaterally Neck: Neck: supple and no JVD Resp: No wheezing or stridor. In no respiratory distress. Cardio: Rate: regular rate Rhythm: regular rhythm, no heave. GI: Inspection: non-distended Skin: General skin exam: normal color Neuro: Cognition (Neuro): normal cognition Speech: normal speech No focal weakness noted. Extrem: General: edema Other: Has dependent edema of thighs, hips, back, panniculus. Psych: Mental Status: mental status grossly normal Affect: normal affect Other: Knows she is at [facility] and this is Dec. Objective Data Vital Signs Vital Signs: Vital Signs - 24 hr 10/18/20 12:00 10/18/20 16:00 10/18/20 18:00 Temperature 36.7 C 36.3 C L Pulse Rate 87 84 90 Respiratory Rate 18 16 Blood Pressure 108/53 L 116/44 L Pulse Oximetry 95 96 10/18/20 20:00 10/18/20 21:48 10/18/20 23:20 Temperature 36.9 C Pulse Rate 80 86 82 Respiratory Rate 16 23 H Blood Pressure 125/52 L Pulse Oximetry 97 92 93 10/19/20 00:00 10/19/20 02:44 10/19/20 04:00 Temperature 36.0 C L Pulse Rate 78 74 74 Respiratory Rate 16 21 H Blood Pressure 126/44 L Pulse Oximetry 97 91 10/19/20 05:53 10/19/20 08:00 10/19/20 08:10 Temperature 36.1 C L Pulse Rate 80 85 Respiratory Rate 20 Blood Pressure 114/52 L Pulse Oximetry 95 94 10/19/20 08:12 Temperature Pulse Rate 86 Respiratory Rate Blood Pressure
--- NOTE | 2020-10-19 10:32 | PCOTNOTE ---
Attempted to see patient this am, however patient declined at this time stating, It was a long night, and I didn't sleep much. Pt requested to rest.
[2020-10-19 11:29] LABS: Glucose Point of Care 235 (65-105)
[2020-10-19] MEDS: INSULIN ASPART (*BKC) 100 UNITS/ML SUB-Q ×2 (11:40→17:02)
--- NOTE | 2020-10-19 12:46 | PM.DS ---
DS: Admitting Diagnosis Admitting Diagnosis Admitting Diagnosis: Shortness of breath DS: Discharge Diagnosis Discharge Diagnosis (1) Postoperative wound dehiscence: Qualifiers: Encounter type: initial encounter Qualified Code(s): T81.31XA - Disruption of external operation (surgical) wound, not elsewhere classified, initial encounter Code(s): T81.31XA - Disruption of external operation (surgical) wound, not elsewhere classified, initial encounter Status: Acute Assessment and Plan: Postoperative. Left below-knee amputation wound dehiscence debridement. Wound VAC in place. Pt to follow up with wound clinic. Continue pain medications. Pt is BL amputee discharged to SNF with wound vac on LBKA. ADDITIONAL PROBLEMS (1) Acute systolic heart failure: Code(s): I50.21 - Acute systolic (congestive) heart failure Status: Resolved Assessment and Plan: Will diurese patient with IV Lasix. Pt seen by cardiology transition to oral lasix (2) Acute respiratory failure with hypoxia and hypercapnia: Code(s): J96.01 - Acute respiratory failure with hypoxia; J96.02 - Acute respiratory failure with hypercapnia Status: Resolved Assessment and Plan: PRN bipap. Breathing recovered, Seen by pulmonology. (3) Elevated troponin: Code(s): R77.8 - Other specified abnormalities of plasma proteins Status: Acute Assessment and Plan: Cardiology consult. (4) IDDM (insulin dependent diabetes mellitus): Status:Chronic Assessment and Plan: And start sliding scale insulin monitor glucose closely (5) Elevated WBC count: Code(s): D72.829 - Elevated white blood cell count, unspecified Status: Acute Assessment and Plan: UC positive for EColi, pt is on iv Rocephin transition oral antibiotics DS: Summary Hospital Course Hospital Course: Pt having stump dressing changed. Known history of congestive heart failure, chronic respiratory failure, on oxygen, diabetes mellitus recently had left below knee amputation about [address] Huerta. Seen by orthopedics. cardiology and pulmonology while in the hospital. Pt is stable for discharge with wound vac in situ. Pt going to SNF as she is a BL amputee. Time Spent with Patient Time attestation: Total time spent providing and/or coordinating discharge services:40 minutes on day of discharge Exam Narrative: Exam Narrative: Patient elderly lady Lungs decreased air entry Heart examination shows S1-S2 possible S3 no murmur. Abdominal examination shows soft nontender bowel sounds positive no hepatosplenomegaly. Extremities bilateral BKA. Left lower extremity is wrapped in bandage from recent BKA [employer] alert and oriented x3 moves all extremity. Mood stable Neuro oriented x3 DS: Data Data Completed and Pending Labs on day of discharge: Labs from last 24 hours 10/19/20 10/19/20 10/19/20 11:26 07:24 05:19 WBC RBC Hgb Hct MCV MCH MCHC RDW Plt Count MPV Sodium 138 Potassium 4.2 Chloride 91 L Carbon Dioxide > 40 H Anion Gap BUN 20 H Creatinine 1.00 Estim Creat Clear Calc Not Reportable Estimated GFR 54 L Glucose 206 H POC Capillary Glucose 235 H 170 H Calcium 8.2 L 10/19/20 10/18/20 10/18/20 05:19 20:44 17:13 WBC 9.3 RBC 3.44 L Hgb 9.5 L Hct 33.0 L MCV 95.9 MCH 27.6 MCHC 28.8 L RDW 18.1 H Plt Count 271 MPV 10.4 Sodium Potassium Chloride Carbon Dioxide Anion Gap BUN Creatinine Estim Creat Clear Calc Estimated GFR Glucose POC Capillary Glucose 282 H 282 H Calcium Preliminary micro results at discharge 10/15/20 14:58 Blood Culture - Preliminary Blood 10/15/20 14:59 Blood Culture - Preliminary Blood Discharge Plan Discharge Attending physician on discharge: Dee Dunne Consulting providers: Alexy Huerta ;
--- NOTE | 2020-10-19 13:35 | PM.PNORT ---
Progress Note: A&P Assessment and Plan (1) Postoperative wound dehiscence: Qualifiers: Encounter type: initial encounter Qualified Code(s): T81.31XA - Disruption of external operation (surgical) wound, not elsewhere classified, initial encounter Code(s): T81.31XA - Disruption of external operation (surgical) wound, not elsewhere classified, initial encounter Status: Acute Assessment and Plan: Postoperative day 1. Left below-knee amputation wound dehiscence debridement. Wound VAC in place. Leg appears stable. Continue with wound VAC with sterile water in still for debridement. Patient requires wound VAC until wound granulating. If arrangements for discharge accommodate wound VAC will follow with patient in [facility] outpatient wound clinic 12 days. Out of bed as tolerated with no weight left leg. (2) Peripheral arterial occlusive disease: Code(s): I77.9 - Disorder of arteries and arterioles, unspecified Status: Acute (3) IDDM (insulin dependent diabetes mellitus): Status: Acute Subjective Subjective Date/Time Seen: 10/19/20 13:35 patient awake and alert. No new complaints. Seems to be breathing better. Exam Const: General: healthy appearing; No in distress or confusion Orientation/consciousness: patient oriented x3 and No confusion HENMT: Head: normal to inspection, normocephalic and atraumatic Eyes: Conjunctivae: conjunctivae normal Sclera: sclerae normal Resp: Effort & Inspection: normal respiratory effort and no audible wheezes Neuro: General: patient oriented x3 and No confusion Extrem: Left lower extremity: lower leg Details: other ( Wound VAC dressing in place. Mild swelling and erythema lower leg. Minimal drainage in wound VAC container. Knee exam benign.) Psych: Affect: normal affect Objective Data Vital Signs Vital Signs: Vital Signs - 24 hr 10/18/20 16:00 10/18/20 18:00 10/18/20 20:00 Temperature 97.4 F L 98.4 F Pulse Rate 84 90 80 Respiratory Rate 16 16 Blood Pressure 116/44 L 125/52 L Pulse Oximetry 96 97 10/18/20 21:48 10/18/20 23:20 10/19/20 00:00 Temperature 96.8 F L Pulse Rate 86 82 78 Respiratory Rate 23 H 16 Blood Pressure 126/44 L Pulse Oximetry 92 93 97 10/19/20 02:44 10/19/20 04:00 10/19/20 05:53 Temperature 97.0 F L Pulse Rate 74 74 80 Respiratory Rate 21 H 20 Blood Pressure 114/52 L Pulse Oximetry 91 95 10/19/20 08:00 10/19/20 08:10 10/19/20 08:12 Temperature 97.2 F L Pulse Rate 84 86 Respiratory Rate 20 Blood Pressure 123/54 L Pulse Oximetry 92 94 10/19/20 12:00 10/19/20 12:02 10/19/20 12:05 Temperature Pulse Rate 87 Respiratory Rate Blood Pressure Pulse Oximetry 84 L 93 Intake/Output Intake/Output: Intake & Output 10/16/20 10/17/20 10/18/20 10/19/20 23:59 23:59 23:59 23:59 Intake Total 700 1170 1300 340 Output Total 7501 5375 6325 1000 [facility] -2675 -4205 -5025 -660 Meds/Results Medications: Active Medications Generic Name Dose Route Start Last Admin Trade Name Freq PRN Reason Stop Dose Admin Hydrocodone Bitart/Acetaminophen 1 tab 10/16/20 22:04 10/17/20 04:01 Hydrocodone/Acetaminophen (*Crx) 5-325 Mg Tablet PO 1 tab Q6H PRN Administration Pain Rated 4-6 Albuterol 2 puff 10/15/20 17:00 10/19/20 12:43 Albuterol Sulfate (*Sp) Aerosol 1 Puff INHALATION 2 puff QID NEW Administration Amiodarone HCl 200 mg 10/16/20 09:00 10/19/20 08:12 Amiodarone Hcl 200 Mg Tablet PO 200 mg DAILY NEW Administration Aspirin 325 mg 10/18/20 09:00 10/19/20 08:11 Aspirin 325 Mg Tablet PO 325 mg DAILY NEW Administration Atorvastatin Calcium 40 mg 10/16/20 09:00 10/19/20 08:12 Atorvastatin 40 Mg Tablet PO 40 mg DAILY NEW Administration Collagenase 1 applic 10/17/20 09:00 10/18/20 11:05 Collagenase Oint 30 Gm Tube TOPICAL Not Given QAM [facility] Dextrose 12.5 gm 10/15/20 14:48 De
[2020-10-19 16:30] LABS: Glucose Point of Care 273 (65-105)
== END 2020-10-19 18:03 | DRG 981 ==
LOC: ANHED 10:03 → ANHIMU 14:05 → ANH2MED 10-19 11:56 → ANHIMU 10-25 09:44
PROVIDERS: Internal Medicine; Internal Medicine Cardiovascular Disease; Internal Medicine Pulmonary Disease; Admitting Provider Internal Medicine; Emergency Provider General Practice; PCP Pediatrics Pediatric Emergency Medicine; Visit Provider Family Medicine
DX: I11.0 Hypertensive heart disease with heart failure (principal); J96.21 Acute and chronic respiratory failure with hypoxia; J96.22 Acute and chronic respiratory failure with hypercapnia; N39.0 Urinary tract infection, site not specified; T87.81 Dehiscence of amputation stump; I50.33 Acute on chronic diastolic (congestive) heart failure; B96.20 Unspecified Escherichia coli [E. coli] as the cause of diseases classified elsewhere; D64.9 Anemia, unspecified; J43.9 Emphysema, unspecified; I25.10 Atherosclerotic heart disease of native coronary artery without angina pectoris; E11.51 Type 2 diabetes mellitus with diabetic peripheral angiopathy without gangrene; E11.42 Type 2 diabetes mellitus with diabetic polyneuropathy; D72.829 Elevated white blood cell count, unspecified; I44.7 Left bundle-branch block, unspecified; I48.0 Paroxysmal atrial fibrillation; I25.2 Old myocardial infarction; Z89.512 Acquired absence of left leg below knee; Z89.511 Acquired absence of right leg below knee; Z95.1 Presence of aortocoronary bypass graft; Z87.891 Personal history of nicotine dependence; Z99.81 Dependence on supplemental oxygen
CPT/HCPCS: 36415; 36600; 71045; 71275; 80048; 80053; 80061; 81001; 82805; 83735; 83880; 84439; 84443; 84480; 84484; 85025; 85027; 85610; 85730; 87040; 87077; 87086; 87088; 87186; 93005; 93970; 94002; 94003; 94640; 94660; 96365; 96366; 96374; 96375; 96376; 97110; 97162; 97166; 97530; 99291; A9270; C9113; G0378; J0696; J1815; J1940; Q9967

== ENCOUNTER 2020-11-18 22:25 | Inpatient (IN) | payer OTHER, SELFPAY ==
[2020-11-18] VITALS (7 sets, daily range): BP systolic 77–119; BP diastolic 38–69; PULSE 75–105; RESP 10–27; O2SAT 85–99
--- NOTE | ~2020-11-18 | CT_ITS ---
EXAMINATION: CTA chest PE protocol DATE: 11/19/2020 03:28 INDICATION: Shortness of breath. Elevated d-dimer. TECHNIQUE: Computed tomography (CT) pulmonary angiogram of the chest was performed with 100 mL Omnipa que-350 intravenous contrast. Additional 3D reconstructions utilizing coronal maximum intensity proje ction (MIP) were performed. Automated exposure control and iterative reconstruction technique were em ployed. The dose-length product was 1006.85 mGy-cm. COMPARISON: 10/15/2020 FINDINGS: Excellent contrast opacification of the pulmonary arteries. There is mild streak artifact from dense contrast in the superior vena cava and right atrium. Mild scattered respiratory motion artifact which decreases sensitivity in some of the smaller subsegmental pulmonary arteries. No pulmonary embolism. Endotracheal tube tip 2.2 cm above the nash. Nasogastric tube with distal tip in the body of the s tomach. Right internal jugular central venous catheter with distal tip in the right atrium. Small bilateral pleural effusions with dependent compressive atelectasis in the bilateral lower lobes . Groundglass opacities throughout both lungs with mild septal line thickening at the bilateral lung bases. Mild to moderate upper lung predominant emphysema. Cardiomegaly. Atherosclerotic coronary sachi ry calcific a shunt. Postoperative change of prior median sternotomy and coronary artery bypass graft ing. Thoracic aorta is normal in caliber with no dissection. Mild likely reactive mediastinal lymphad enopathy. A few calcified mediastinal lymph nodes consistent with old granulomatous disease. 2.8 cm l ow density right adrenal adenoma. Moderate thoracic and lower cervical spondylosis. IMPRESSION: 1. No pulmonary embolism. 2. Groundglass opacities throughout both lungs with mild septal line thickening at the lung bases mos t likely congestive heart failure related mild pulmonary edema with differential including less likel y pneumonia. 3. Small bilateral pleural effusions. 4. Mild to moderate emphysema. 5. Cardiomegaly. 6. Right internal jugular central venous catheter tip in the right atrium. Recommend withdrawal by [address] the tip near the superior cavoatrial junction. Reviewed, dictated and finalized at location A. E CHANGER IMPRESSION: 1. No pulmonary embolism. 2. Groundglass opacities throughout both lungs with mild septal line thickening at the lung bases most likely congestive heart failure related mild pulmonary edema with differential including less likely pneumonia. 3. Small bilateral pleural effusions. 4. Mild to moderate emphysema. 5. Cardiomegaly. 6. Right internal jugular central venous catheter tip in the right atrium. Derek mmend withdrawal by [address] the tip near the superior cavoatrial junction .
--- NOTE | ~2020-11-18 | XR_ITS ---
EXAMINATION: XR chest 1V portable EXAM DATE: 11/21/2020 08:42 INDICATION: Pulmonary edema. History of coronary artery disease, CHF, hypertension and diabetes. TECHNIQUE: Portable AP frontal chest x-ray was obtained. Comparison is made to prior examination from 11/20/2020, 11/19. FINDINGS: Patient has been extubated. Nasogastric tube removed. There is a right-sided IJ venous line . Sternotomy wires are present without findings to suggest sternal dehiscence. Mild cardiomegaly. Car diac silhouette is stable in size compared to prior exam. There is pulmonary vascular congestion. Dif fuse indistinct reticulation, appearance is consistent with pulmonary edema but pneumonia not excluda ble. This does not appear significantly changed compared to 11/19/2020. No pneumothorax. Small pleural effusions. There is aortic arteriosclerosis. There are bony degenerative changes. IMPRESSION: Findings consistent with CHF exacerbation, stable. Reviewed, dictated and finalized at location B. LIANCE REVIEW OFFICER
--- NOTE | ~2020-11-18 | XR_ITS ---
EXAMINATION: XR chest 1V portable DATE: 11/20/2020 08:28 INDICATION: Congestive heart failure. Respiratory failure. Intubated. TECHNIQUE: frontal view of the chest was obtained. COMPARISON: Chest radiograph and CT dated 11/19/2020 FINDINGS: Endotracheal tube tip 2.1 cm above the nash. Nasogastric tube tip in proximal side port in the body of the stomach. Right internal jugular central venous catheter with distal tip in the right atrium. Improvement in bilateral groundglass and subtle patchy airspace opacities throughout both lungs. Ther e is also been decrease in prior pulmonary vascular congestion. Small left pleural effusion tracking along the fissures. No pneumothorax. Cardiomegaly. Median sternotomy wires and mediastinal surgical c lips are seen, likely from prior coronary artery bypass grafting. IMPRESSION: 1. Right internal jugular central venous catheter tip in the right atrium. Consider withdrawal by [address] the tip near the superior cavoatrial junction. 2. Decrease in bilateral opacities most consistent with improving pulmonary edema. Superimposed pneum onia and/or atelectasis not excludable. 3. Small at least left-sided pleural effusion although bilateral pleural effusions seen on the prior chest CT were essential indiscernible on the prior radiographs. 4. Cardiomegaly. 5. Emphysema better appreciated on prior CT . Reviewed, dictated and finalized at location A. DULING CLERK IMPRESSION: 1. Right internal jugular central venous catheter tip in the right atrium. Cons ider withdrawal by [address] the tip near the superior cavoatrial junction. 2. Decrease in bilateral opacities most consistent with improving pulmonary tram ma. Superimposed pneumonia and/or atelectasis not excludable. 3. Small at least left-sided pleural effusion although bilateral pleural effusi ons seen on the prior chest CT were essential indiscernible on the prior radiog raphs. 4. Cardiomegaly. 5. Emphysema better appreciated on prior CT .
--- NOTE | ~2020-11-18 | XR_ITS ---
EXAMINATION: XR chest port-a-cath/central DATE: 11/19/2020 02:32 INDICATION: Central line placement. TECHNIQUE: frontal view of the chest was obtained. COMPARISON: Chest radiograph dated 11/18/2020 FINDINGS: Endotracheal tube tip 2.0 cm above the nash. Nasogastric tube tip in the body of the stomach. Right internal jugular central venous catheter with distal tip in the right atrium. Persistent interstitial and airspace opacities throughout both lungs. Small bilateral pleural effusio ns seen on subsequent CT are not well appreciated on the provided projection. No pneumothorax. Cardio megaly. Median sternotomy wires and mediastinal surgical clips are seen, likely from prior coronary a rtery bypass grafting. IMPRESSION: 1. Lines and tubes as detailed above. Consider withdrawal of the right internal jugular central venou s catheter by [address] the tip near the superior cavoatrial junction. 2. Persistent diffuse bilateral lung disease which could represent pneumonia, pulmonary edema, atelec tasis or some combination thereof. 3. Cardiomegaly. 4. Emphysema and small bilateral pleural effusions seen on subsequent CT but not well appreciated on the provided radiograph. Reviewed, dictated and finalized at location A. RDS MANAGEMENT TECHNICIAN IMPRESSION: 1. Lines and tubes as detailed above. Consider withdrawal of the right internal jugular central venous catheter by [address] the tip near the superior cav oatrial junction. 2. Persistent diffuse bilateral lung disease which could represent pneumonia, p ulmonary edema, atelectasis or some combination thereof. 3. Cardiomegaly. 4. Emphysema and small bilateral pleural effusions seen on subsequent CT but no t well appreciated on the provided radiograph.
--- NOTE | ~2020-11-18 | XR_ITS ---
XR chest ET placement DATE: 11/18/2020 22:59 INDICATION: Intubation TECHNIQUE: Portable AP chest on 11/18/2020 at 2301 hours COMPARISON: 10/17/2020 portable AP chest at 0458 hours FINDINGS: ET tube is approximately 1.4 cm above nash; ideal range is 2 - 5 cm. NG tube in stomach. There are extensive patchy diffuse bilateral pulmonary infiltrates, consistent with pulmonary edema o r pneumonia. There is minimal if any pleural effusion. No pneumothorax. Aortic arch calcification. Diffuse osteopenia. Status post sternotomy. IMPRESSION: ET tube is approximately 1.4 cm above nash; ideal range is 2 - 5 cm. Extensive bilateral pulmonary infiltrates, consistent with pulmonary edema or pneumonia Reviewed, dictated and finalized at Location A. Reviewed, dictated and finalized at location A. OUT PRESS OPERATOR IMPRESSION: ET tube is approximately 1.4 cm above nash; ideal range is 2 - 5 cm. Extensive bilateral pulmonary infiltrates, consistent with pulmonary edema or p neumonia
--- NOTE | 2020-11-18 22:34 | PC.NURSE ---
Pt requiring emergent intubation. 20 etomadate and 100 Rocuronium for sedation per verbal order by DO Nast. Pt intubated with 7.5 ET tube, 23cm to the lip. Color change noted on CO2 detector and good breath sounds noted bilaterally via auscultation.
--- NOTE | 2020-11-18 22:40 | PC.NURSE ---
4 mg versed given per verbal order
--- NOTE | 2020-11-18 22:42 | ECG_ITS ---
Measurements Intervals [place] Rate: 91 P: 48 TN: 192 QRS: -39 QRSD: 178 T: 123 QT: 460 QTc: 568 Interpretive Statements SINUS RHYTHM LEFT AXIS DEVIATION LEFT BUNDLE BRANCH BLOCK ABNORMAL ECG Electronically Signed On 11-19-2020 6:49:08 RETANNER by Stephen Peralta D.O.
--- NOTE | 2020-11-18 22:43 | ED.SOB ---
HPI - SOB/Dyspnea General Chief Complaint: Shortness of Breath/Dyspnea Stated Complaint: respiratory distress Time Seen by Provider: 11/18/20 22:42 Source: EMS Mode of arrival: EMS Limitations: clinical condition History of Present Illness HPI Narrative: 80-year-old woman is brought into the emergency department via EMS. They note that the initial call was for shortness of breath from her correction. On arrival patient's pulse ox was found to be in the 70s. She was initially started on a nonrebreather, quickly escalated to a CPAP and is being bagged with a BVM on arrival. Patient is confused and somewhat combative. She is unable to provide any history. Related Data Home Medications Medication Instructions Recorded Confirmed gabapentin 400 mg PO BID 09/13/20 10/28/20 Lantus Solostar U-100 Insulin 30 unit SUBCUT Q12H 09/23/20 10/28/20 atorvastatin 40 mg PO HS 10/15/20 10/28/20 mirtazapine 15 mg PO HS 10/15/20 10/28/20 tolnaftate 1 applic TOPICAL BID 10/15/20 10/28/20 acetaminophen 650 mg PO Q4H PRN 10/28/20 10/28/20 amiodarone 200 mg PO DAILY 10/28/20 10/28/20 carvedilol 3.125 mg PO BID 10/28/20 10/28/20 furosemide [Lasix] 40 mg PO BID 10/28/20 10/28/20 polysaccharide iron complex 150 mg PO DAILY 10/28/20 10/28/20 [Ferrex 150] Allergies Allergy/AdvReac Type Severity Reaction Status Date / Time No Known Allergies Allergy Unverified 10/15/20 11:12 Review of Systems Review of Systems: ROS unobtainable: Yes unobtainable due to medical condition PMFSH Past Medical History Medical History Absent pedal pulses Anemia CAD (coronary artery disease) CHF (congestive heart failure) Depression Diabetes mellitus Diabetes type 2, controlled Diabetic foot ulcer High cholesterol HTN (hypertension) Hypertension Hypothyroidism Infected stasis ulcer of left lower extremity LBBB (left bundle branch block) Lower extremity cellulitis Neuropathy NSTEMI (non-ST elevated myocardial infarction) Pt denies MT Osteomyelitis Osteomyelitis of left foot PAD (peripheral artery disease) Paroxysmal atrial fibrillation Peripheral arterial occlusive disease Postoperative wound dehiscence Uncontrolled diabetes mellitus Wound of foot Surgical History Surgical History Below-knee amputation of left lower extremity History of right below knee amputation History of transmetatarsal amputation of left foot transmetatarsal amputations at the necks of the 2nd/ Hx of CABG Hx of CABG 1994 S/P BKA (below knee amputation) Family History Family History Sibling Family history of cardiovascular disease Diabetes mellitus Family history of arthritis Father History of heart attack Heart attack Mother Skin cancer Sibling Diabetes mellitus Other Hypertension Social History Social History Social History: , was living w/ two sons prior to her recent BKA. Smoking packs per day: 0.5 Smoking cigarettes per day: 10.0 Years smoked: 15 Smoking pack-years: 7.50 Smoking status: Former smoker Tobacco type: cigarettes Smoking end date: 08/21/15 Alcohol intake: never Substance use: never Substance use type: does not use Additional living arrangements comments: Two sons Gender identity (if verbalized by the patient): Female Spiritual care concerns: No Exam Narrative: Exam Narrative: GENERAL: Obese, altered. HEAD: Normocephalic, atraumatic. EYES: PERRLA and EOMI. ENT: Actively being bagged NECK: Supple. No adenopathy or masses. No carotid bruits or JVD CHEST: Diminished diffusely HEART: Tachycardic. No murmur heard. Normal peripheral pulses. ABDOMEN: Obese, soft, nontender, nondistended, normal active bowel sounds. EXTREMITIES: Normal range of motion. No edema. Bilateral BKA's
--- NOTE | 2020-11-18 22:50 | PC.NURSE ---
Attempted to call all of patients listed emergency contacts in our system and paperwork [facility] with patient from [facility] with no answer at this time.
[2020-11-18] MEDS: SODIUM CHLORIDE 0.9% IV 1,000 ML 999 ML IV CONT (22:54)
[2020-11-18] MEDS: LACTATED RINGERS 1,000 ML 999 ML IV CONT (22:54)
--- NOTE | 2020-11-18 22:57 | PC.NURSE ---
Per EDP Nast via verbal order read-back, give 2L of fluids prior to initiating propofol infusion.
[2020-11-18 22:58] LABS: Alveolar/Arterial O2 Gradient 556.8 mmHg; Base Excess ABG -3.7 mEq/l (+/-2.0); Device VENTILATOR; Fractional Inspired Oxygen 100 %; HCO3 ABG 24.1 mEq/l (22.0-26.0); Modified Allen's Test Pass; Oxygen Content ABG 14.5 %vol (16.0-22.0); Oxygen Saturation ABG 96.3 % (95.0-100.0); Oxyhemoglobin 94.8 % THb (90.0-100.0); PCO2 ABG 57.6 mmHg (35.0-45.0); PO2 ABG 98.6 mmHg (80.0-100.0); PO2 FiO2 Ratio Arterial Blood 0.99 %; Site Drawn LEFT RADIAL; Total Hemoglobin 10.8 g/dL (12.0-18.0)
[2020-11-18 22:59] LABS: Arterial Blood Gas PEEP 5 cmH2O; Arterial Blood Gas Tidal Volume 420 ml; Arterial Blood Gas Vent Mode CMV; Arterial Blood Gas Ventilator rate 14 /MIN
[2020-11-18 23:00] LABS: Basophils Absolute Auto 0.1 K/mm3 (0.0-0.1); Basophils Percent Auto 0.3 % (0.2-1.2); Eosinophils Absolute Auto 0.4 K/mm3 (0-0.3); Eosinophils Percent Auto 1.5 % (0-4.4); Hematocrit 41.9 % (37.0-47.0); Immature Granulocyte Absolute 1.41 K/mm3 (0.00-0.031); Immature Granulocyte Percent A 4.8 % (0-0.5); Lymphocytes Absolute Auto 8.18 K/mm3 (0.9-3.2); Lymphocytes Percent Auto 27.7 % (18.3-44.2); Mean Corpuscular HGB Conc 28.6 g/dl (32-36); Mean Corpuscular Hemoglobin 27.5 pg (26-34); Mean Corpuscular Volume 96.1 fl (80-100); Mean Platelet Volume 10.7 fl (7.4-10.4); Monocytes Absolute Auto 1.6 K/mm3 (0.1-0.6); Monocytes Percent Auto 5.3 % (2.6-8.5); Neutrophils Absolute Auto 17.9 K/mm3 (1.3-6.7); Neutrophils Percent Auto 60.4 % (45.5-73.1); Nucleated Red Blood Cells Perc 0.1 % (0.0-0.2); Platelet Count Result 449 k/mm3 (150-375); Red Blood Count 4.36 M/mm3 (4.2-5.4); Red Cell Distribution Width 16.7 % (11.5-14.5); White Blood Count 29.5 K/mm3 (4.5-10.0)
[2020-11-18] MEDS: PROPOFOL IV EMULSION 100 ML 5.97 MG IV CONT (23:00)
[2020-11-18 23:14] LABS: Alanine Aminotransferase 22 U/L (4-35); Albumin Level 3.9 g/dL (3.5-5.1); Alkaline Phosphatase 195 U/L (38-126); Anion Gap 2 mmol/L (8-16); Aspartate Amino Transferase 37 U/L (14-36); Bilirubin,Total 0.5 mg/dL (0.2-1.3); Blood Urea Nitrogen 17 mg/dL (7-17); Calcium 8.9 mg/dL (8.4-10.2); Carbon Dioxide 34 mmol/L (22-30); Chloride 104 mmol/L (98-107); Estimated CRCL calculation 45 ml/min; Estimated Glomerular Filt Rate 54; Glucose 265 mg/dL (65-105); Potassium 4.1 mmol/L (3.4-5.0); Sodium 140 mmol/L (137-145)
[2020-11-18 23:16] LABS: Prothrombin Time 13.7 Seconds (11.1-14.7)
[2020-11-18 23:17] LABS: Partial Thromboplastin Time 30.3 SECONDS (22.3-36.8)
[2020-11-18 23:19] LABS: D Dimer 2.24 ug/mL (<0.48)
[2020-11-18 23:31] LABS: NT Pro B Type Natriuretic Pept 4640 PG/ML (5-100); Troponin I 0.031 ng/mL (0.000-0.034)
[2020-11-18 23:32] LABS: Anisocytosis 1+ (NORMAL); Atypical Lymphocytes Present; Platelet Estimate Adequate (Adequate)
[2020-11-19] VITALS (111 sets, daily range): BP systolic 83–154; BP diastolic 46–122; PULSE 59–88; RESP 10–22; TEMP 35.7–37.2; O2SAT 87–100; BMI 43.1
[2020-11-19 00:46] LABS: Add Urine Microscopic? YES; Appearance Urine Cloudy (Clear); Bacteria Urine Trace /hpf; Bilirubin Urine Negative (Negative); Blood Urine Negative (Negative); Color Urine Yellow (Yellow); Glucose Urine UA Negative (Negative); Ketones Urine Negative (Negative); Leukocyte Esterase Ur Trace LEU/UL (Negative); Mucus Urine Rare /lpf; Nitrate Urine Negative (Negative); Protein Urine Negative (Negative); RBC Urine 0-2 /hpf (0-2); Specific Grav Ur 1.012 (1.001-1.035); Squamous Epithelial Cell Urine Many /hpf (Few); Urobilinogen Urine Negative mg/dL (<2.0); WBC Urine 16-20 /hpf
[2020-11-19 00:54] LABS: CRP 4.4 mg/dL (<1.0)
[2020-11-19 00:59] LABS: Lactic Acid Reflex 1.6 mmol/L (0.7-2.1)
--- NOTE | 2020-11-19 01:40 | PC.NURSE ---
Vancomycin infusion stopped at this time. EDP Nast notified that patient is needing frequent suctioning through ET tube. Per EDP Nast, hold on vancomycin infusion.
--- NOTE | 2020-11-19 01:54 | PC.NURSE ---
EDP Nast notified of patient's blood pressure of 85/49. Per EDP Nast via verbal order read-back, initiate Levophed drip through a peripheral IV until EDP is available to place central line.
--- NOTE | 2020-11-19 02:02 | PC.NURSE ---
EDP Nast in room for central line placement.
[2020-11-19] MEDS: NOREPINEPHRINE 8 MG/D5W 250 ML 8 MG/250 ML BAG 9.38 MG IV CONT (02:22)
[2020-11-19 03:42] LABS: Alveolar/Arterial O2 Gradient 230.7 mmHg; Base Excess ABG 0.5 mEq/l (+/-2.0); Device VENTILATOR; Fractional Inspired Oxygen 60 %; HCO3 ABG 26.5 mEq/l (22.0-26.0); Modified Allen's Test Pass; Oxygen Saturation ABG 98.7 % (95.0-100.0); Oxyhemoglobin 97.7 % THb (90.0-100.0); PCO2 ABG 48.6 mmHg (35.0-45.0); PO2 ABG 143.6 mmHg (80.0-100.0); PO2 FiO2 Ratio Arterial Blood 2.39 %; Site Drawn LEFT RADIAL; Total Hemoglobin 10.7 g/dL (12.0-18.0); pH ABG 7.354 (7.350-7.450)
[2020-11-19 03:43] LABS: Arterial Blood Gas PEEP 8 cmH2O; Arterial Blood Gas Tidal Volume 420 ml; Arterial Blood Gas Vent Mode CMV; Arterial Blood Gas Ventilator rate 14 /MIN
--- NOTE | 2020-11-19 05:15 | ADMGEN ---
This patient, Owen Escobar, was admitted to Intensive Care Unit-4. Patient/family oriented to hospital policies and general routines including ID bracelet, bed and alarms, visiting hours, pain management, procedures, bathroom and other care routines, personal items, smoking policy, room service/diet, and visiting hours. Information on how to activate the Rapid Response Team has been discussed. Patient/Family are encouraged to report perceived risks to care and to ask questions if they do not understand what they are told or what they should do.
--- NOTE | 2020-11-19 05:54 | PM.IMHP ---
H&P: HPI History of Present Illness Date/Time: 11/19/20 05:54 Chief Complaint: Acute Respiratory failure Narrative: This is a 80 year old female who was brought to the hospital in acute respiratory distress from the snf. She was emergently intubated in the ER secondary to her respiratory distress. Routine labs demonstrated an elevated WBC of 29,500 and CXR revealed extensive bilateral pulmonary infiltrates. The patient was treated with 3 liters of RL IV bolus as well as IV antibiotics. The patient continued to be hypotensive despite an adequate IV fluid bolus and a central IV line was placed and she was started on IV vasopressors. The patient is intubated and sedated and no other history is obtainable at this time. Review of Systems Review of Systems: ROS unobtainable: Yes unobtainable due to medical condition PMFSH Past Medical History Medical History Absent pedal pulses Anemia CAD (coronary artery disease) CHF (congestive heart failure) Depression Diabetes mellitus Diabetes type 2, controlled Diabetic foot ulcer High cholesterol HTN (hypertension) Hypertension Hypothyroidism Infected stasis ulcer of left lower extremity LBBB (left bundle branch block) Lower extremity cellulitis Neuropathy NSTEMI (non-ST elevated myocardial infarction) Pt denies [place] Osteomyelitis Osteomyelitis of left foot PAD (peripheral artery disease) Paroxysmal atrial fibrillation Peripheral arterial occlusive disease Postoperative wound dehiscence Uncontrolled diabetes mellitus Wound of foot Surgical History Surgical History Below-knee amputation of left lower extremity History of right below knee amputation History of transmetatarsal amputation of left foot transmetatarsal amputations at the necks of the 2nd/3rd Hx of CABG Hx of CABG 1994 S/P BKA (below knee amputation) Family History Family History Sibling Family history of cardiovascular disease Diabetes mellitus Family history of arthritis Father History of heart attack Heart attack Mother Skin cancer Sibling Diabetes mellitus Other Hypertension Social History Social History Social History: , was living w/ two sons prior to her recent BKA. Smoking packs per day: 0.5 Smoking cigarettes per day: 10.0 Years smoked: 15 Smoking pack-years: 7.50 Smoking status: Former smoker Tobacco type: cigarettes Smoking end date: 08/21/15 Alcohol intake: never Substance use: never Substance use type: does not use Additional living arrangements comments: Two sons Gender identity (if verbalized by the patient): Female Spiritual care concerns: No Meds Home Medications and Allergies Home Medications Medication Instructions Recorded Confirmed Type Lantus Solostar U-100 Insulin 30 unit SUBCUT Q12H 09/23/20 11/19/20 History pantoprazole 40 mg PO QAM 30 Days #30 tablet 10/05/20 11/19/20 Rx atorvastatin 40 mg PO HS 10/15/20 11/19/20 History amiodarone 200 mg PO DAILY 10/28/20 11/19/20 History carvedilol 3.125 mg PO BID 10/28/20 11/19/20 History furosemide [Lasix] 40 mg PO DAILY 10/28/20 11/19/20 History polysaccharide iron complex 150 mg PO DAILY 10/28/20 11/19/20 History [Ferrex 150] acetaminophen 500 mg PO Q6H PRN 11/19/20 11/19/20 History fluticasone propion-salmeterol 2 puff INHALATION BID 11/19/20 11/19/20 History [Advair HFA] insulin lispro [Humalog KwikPen 6 unit SUBCUT TIDWMEAL 11/19/20 11/19/20 History Insulin] insulin lispro [Humalog KwikPen See Rx Instructions .ROUTE .COMPLEX 11/19/20 11/19/20 History Insulin] ipratropium-albuterol 3 ml INHALATION Q6H PRN 11/19/20 11/19/20 History potassium chloride 20 meq PO DAILY 11/19/20 11/19/20 History vancomycin 125 mg PO Q6H 11/19/20 11/19/20 Hist
[2020-11-19] MEDS: LACTATED RINGERS 1,000 ML 100 ML IV CONT (06:20)
[2020-11-19] MEDS: CENTRAL LINE FLUSH 10 ML IV PUSH ×4 (06:20→20:43)
[2020-11-19] MEDS: PROPOFOL IV EMULSION 100 ML 8.96 MG IV CONT (08:14)
[2020-11-19] MEDS: FUROSEMIDE INJ 40 MG/4 ML VIAL IV PUSH (09:16)
[2020-11-19] MEDS: ENOXAPARIN 40 MG/0.4 ML SYRINGE SUB-Q (09:16)
--- NOTE | 2020-11-19 11:21 | WPDCNINT ---
Assessment and Plan Assessment and plan (1) Acute hypoxemic respiratory failure: Code(s): J96.01 - Acute respiratory failure with hypoxia Status: Acute Assessment and Plan: This patient has acute hypoxemic respiratory failure more likely from congestive heart failure rather than pneumonia. I reviewed her CT of the chest which looks unchanged compared to prior CTs from 4-6 weeks ago. The elevation in her white count may be more likely due to her C difficile colitis rather than pneumonia. Nonetheless will continue systemic antibiotics and wait for sputum and blood cultures before discontinuing them. (2) Acute CHF (congestive heart failure): Code(s): I50.9 - Heart failure, unspecified Status: Acute Assessment and Plan: Congestive heart failure with preserved ejection fraction.. Her most recent echocardiogram showed normal ejection fraction with some diastolic dysfunction. Will start her on Lasix 20 mg IV q.6 hours and replace electrolytes as needed. (3) C. difficile colitis: Code(s): A04.72 - Enterocolitis due to Clostridium difficile, not specified as recurrent Status: Acute Assessment and Plan: Resume oral vancomycin 250 mg p.o. Q 6 hours. There are no signs of significant diarrhea right now. (4) IDDM (insulin dependent diabetes mellitus): Status: Acute Assessment and Plan: Increase sliding scale to high-dose scale. And monitor Accu-Cheks Q 6 hours. Additional Plan The patient will be started on DVT and GI prophylaxis. Diabetic tube feeds will also be started. Total Critical Care Time - 35 minutes Due to a high probability of clinically significant, life threatening deterioration, the patient required my highest level of preparedness to intervene emergently and I personally spent this critical care time directly and personally managing the patient. This critical care time included obtaining a history; examining the patient; pulse oximetry; ordering and review of studies; arranging urgent treatment with development of a management plan; evaluation of patient's response to treatment; frequent reassessment; and discussions with other providers. It was exclusive of separately billable procedures and treating other patients and teaching time. Please see Assessment and Plan section and the rest of the note for further information on patient assessment and treatment Ticket Collector Consult Note Consult date: 11/19/20 Time Seen: 09:30 HPI: Owen Escobar is a 80 year old female with multiple medical problems who was admitted last night with hypoxic respiratory failure from a [place] [facility]. She has a history of coronary artery disease, congestive heart failure, depression, diabetes mellitus, peripheral vascular disease and diabetic foot ulcers with bilateral BKAs, hypothyroidism, peripheral neuropathy, paroxysmal atrial fibrillation, osteomyelitis of the left foot. She was brought in from the [place] [facility] with an O2 saturation in the 70s by EMS who placed her on a non-rebreather. She was confusing combative on admission and was intubated. She had a CT of the chest which showed no pulmonary embolism and showed bilateral pleural effusions diffuse ground-glass opacities consistent with pulmonary edema although there is a right upper lobe atelectasis versus infiltrate this does not appear to be changed significantly from her CAT scans 4-6 weeks ago and hence this is less likely an acute pneumonia. She was on oral vancomycin and we confirmed that she was C difficile positive at the [place] [facility]. We do not have a positive C diff culture from our hospital stay. [place] [id number] on admission she was started on systemic antibiotics and the thought that she may have pneumonia. She is currently intubated and mechanically ventilated and sedated. Review of Systems Review of Systems: All systems reviewed & are unremarkable except as noted in HPI and below PMFSH Past Medical History
[2020-11-19] MEDS: FUROSEMIDE INJ 40 MG/4 ML VIAL 20 MG IV PUSH ×3 (12:08→23:10)
[2020-11-19 12:13] LABS: Glucose Point of Care 147 (65-105)
--- NOTE | 2020-11-19 13:11 | PM.IMPN ---
Progress Note: A&P Assessment and Plan (1) IDDM (insulin dependent diabetes mellitus): Status: Acute Assessment and Plan: Accuchecks, SSI (2) Pressure ulcer of BKA stump: Code(s): T87.89 - Other complications of amputation stump; L89.899 - Pressure ulcer of other site, unspecified stage Status: Acute Assessment and Plan: On iv vancomycin (3) C. difficile colitis: Code(s): A04.72 - Enterocolitis due to Clostridium difficile, not specified as recurrent Status: Acute Assessment and Plan: On oral vancomycin (4) Acute CHF (congestive heart failure): Code(s): I50.9 - Heart failure, unspecified Status: Acute Assessment and Plan: On iv lasix (5) Acute hypoxemic respiratory failure: Code(s): J96.01 - Acute respiratory failure with hypoxia Status: Acute Assessment and Plan: On levophed (6) Suspected COVID-19 virus infection: Code(s): Z20.822 - Contact with and (suspected) exposure to COVID-19 Status: Acute Assessment and Plan: Negative for COVID Subjective Date/time seen: 11/19/20 13:11 Interval history: 80 year old female who was brought to the hospital in acute respiratory distress [facility] the [place] [facility]. Intubated in ICU. Likely cause of resp distress is CHF exacerbation. Pt also has history of Cdiff colitis And DM. Was recently in hospital with Chf exacerbation and Left below-knee amputation wound dehiscence debridement in sep 2020. Review of Systems Review of Systems: All systems reviewed & are unremarkable except as noted in HPI and below Exam Const: General: other (Intubated and sedated on mechanical ventilation. ) Nutritional Appearance: obese morbidly obese Orientation/consciousness: Other orientation findings (sedated and intubated. ) Resp: Effort & Inspection: normal respiratory effort Auscultation: diminished lung sounds Cardio: Rate: regular rate Rhythm: regular rhythm Heart sounds: no murmurs GI: Inspection: normal to inspection Auscultation: normal bowel sounds Skin: General skin exam: normal color and no rashes or lesions noted Neuro: Cranial nerves: Yes Equal, round and reactive pupils present Sensory Exam: normal sensation Extrem: General: no edema Right lower extremity: lower leg (Right lower leg stump is healthy) Left lower extremity: lower leg (left Lower leg stump ulcers++ ) Psych: Affect: normal affect Objective Data Vital Signs Vital Signs: Vital Signs - 24 hr 11/18/20 22:25 11/18/20 22:30 11/18/20 22:45 Temperature Pulse Rate 105 H 92 Respiratory Rate 27 H 10 L Blood Pressure 119/69 77/38 L Pulse Oximetry 87 L 85 L 99 11/18/20 23:00 11/18/20 23:10 11/18/20 23:30 Temperature Pulse Rate 84 81 78 Respiratory Rate 14 17 14 Blood Pressure 95/46 L 101/51 L Pulse Oximetry 97 95 96 11/18/20 23:45 11/19/20 00:07 11/19/20 00:08 Temperature Pulse Rate 75 80 87 Respiratory Rate 14 14 15 Blood Pressure 100/51 L 131/71 Pulse Oximetry 96 94 96 11/19/20 00:11 11/19/20 00:15 11/19/20 00:16 Temperature Pulse Rate 84 78 77 Respiratory Rate 14 14 14 Blood Pressure 151/75 H 142/62 H Pulse Oximetry 93 90 90 11/19/20 00:21 11/19/20 00:23 11/19/20 00:26 Temperature Pulse Rate 75 73 76 Respiratory Rate 14 14 14 Blood Pressure 124/58 L 127/61 Pulse Oximetry 89 L 89 L 89 L 11/19/20 00:30 11/19/20 00:31 11/19/20 00:32 Temperature Pulse Rate 79 77 75 Respiratory Rate 14 14 Blood Pressure 127/57 L Pulse Oximetry 87 L 87 L 11/19/20 00:36 11/19/20 00:41 11/19/20 00:43 Temperature Pulse Rate 73 73 70 Respiratory Rate 17 14 Blood Pressure 101/50 L 115/56 L Pulse Oximetry 88 L 91 88 L 11/19/20 00:45 11/19/20 00:46 11/19/20 00:51 Temperature Pulse Rate 69 69 69 Respiratory Rate 14 14 14 Blood Pressure 101/51 L 100/53 L Pulse Oximetry 91 92 92 11/19/20 00:56 11/19/20 01:00 11/19/20 01:01 T
[2020-11-19 13:28] LABS: SARS-CoV-2 RNA PCR Negative
[2020-11-19] MEDS: ALBUTEROL SULFATE NEB 2.5 MG/0.5 ML INH INHALATION ×2 (15:14→21:57)
[2020-11-19 17:35] LABS: Glucose Point of Care 76 (65-105)
[2020-11-19] MEDS: PROPOFOL IV EMULSION 100 ML 11.94 MG IV CONT (19:24)
[2020-11-19] MEDS: FAMOTIDINE 20 MG/2 ML VIAL IV PUSH (20:41)
[2020-11-19] MEDS: DEXTROSE 50% 25 GM/50 ML SYRINGE IV PUSH (23:18)
[2020-11-19 23:24] LABS: Glucose Point of Care 55 (65-105)
[2020-11-19 23:52] LABS: Glucose Point of Care 101 (65-105)
[2020-11-20] VITALS (22 sets, daily range): BP systolic 98–132; BP diastolic 42–76; PULSE 66–135; RESP 14–32; TEMP 35.9–37.2; O2SAT 92–100
[2020-11-20] MEDS: ALBUTEROL SULFATE NEB 2.5 MG/0.5 ML INH INHALATION ×4 (02:25→21:28)
[2020-11-20 04:18] LABS: Alveolar/Arterial O2 Gradient 70.8 mmHg; Base Excess ABG 4.5 mEq/l (+/-2.0); Device VENTILATOR; Fractional Inspired Oxygen 30 %; HCO3 ABG 29.5 mEq/l (22.0-26.0); Modified Allen's Test Pass; Oxygen Content ABG 13.3 %vol (16.0-22.0); Oxygen Saturation ABG 96.9 % (95.0-100.0); Oxyhemoglobin 95.5 % THb (90.0-100.0); PO2 ABG 89.1 mmHg (80.0-100.0); PO2 FiO2 Ratio Arterial Blood 2.97 %; Site Drawn RIGHT RADIAL; Total Hemoglobin 9.8 g/dL (12.0-18.0); pH ABG 7.425 (7.350-7.450)
[2020-11-20 04:19] LABS: Arterial Blood Gas PEEP 8 cmH2O; Arterial Blood Gas Tidal Volume 420 ml; Arterial Blood Gas Vent Mode CMV; Arterial Blood Gas Ventilator rate 14 /MIN
[2020-11-20] MEDS: CENTRAL LINE FLUSH 10 ML IV PUSH ×4 (06:13→20:00)
[2020-11-20 06:43] LABS: Glucose Point of Care 95 (65-105)
[2020-11-20 07:11] LABS: Alanine Aminotransferase 15 U/L (4-35); Albumin Level 2.6 g/dL (3.5-5.1); Alkaline Phosphatase 123 U/L (38-126); Anion Gap -1 mmol/L (8-16); Aspartate Amino Transferase 24 U/L (14-36); Bilirubin,Total 0.4 mg/dL (0.2-1.3); Blood Urea Nitrogen 14 mg/dL (7-17); Calcium 7.9 mg/dL (8.4-10.2); Carbon Dioxide 32 mmol/L (22-30); Chloride 103 mmol/L (98-107); Estimated CRCL calculation 46 ml/min; Estimated Glomerular Filt Rate 54; Glucose 99 mg/dL (65-105); Potassium 2.9 mmol/L (3.4-5.0); Sodium 134 mmol/L (137-145)
[2020-11-20] MEDS: ENOXAPARIN 40 MG/0.4 ML SYRINGE SUB-Q (08:45)
[2020-11-20] MEDS: FAMOTIDINE 20 MG/2 ML VIAL IV PUSH ×2 (08:45→20:00)
--- NOTE | 2020-11-20 08:52 | PM.IMPN ---
Progress Note: A&P Assessment and Plan (1) IDDM (insulin dependent diabetes mellitus): Status: Acute Assessment and Plan: Add basal glargine to SSI Home dose 60 Units Start at 21 Units (2) Pressure ulcer of BKA stump: Code(s): T87.89 - Other complications of amputation stump; L89.899 - Pressure ulcer of other site, unspecified stage Status: Acute Assessment and Plan: On iv vancomycin (3) C. difficile colitis: Code(s): A04.72 - Enterocolitis due to Clostridium difficile, not specified as recurrent Status: Acute Assessment and Plan: On oral vancomycin (4) Acute CHF (congestive heart failure): Code(s): I50.9 - Heart failure, unspecified Status: Acute Assessment and Plan: Good diuresis overnight with IV furosemide (5) Acute hypoxemic respiratory failure: Code(s): J96.01 - Acute respiratory failure with hypoxia Status: Acute Assessment and Plan: CHF vs pneumonia Receiving vancomycin, azithromycin, ceftriaxone (6) Suspected COVID-19 virus infection: Code(s): Z20.822 - Contact with and (suspected) exposure to COVID-19 Status: Acute Assessment and Plan: Negative for COVID Subjective Date/time seen: 11/20/20 08:52 Interval history: 11/20: Breathing trial on vent. Extubation planned for later this AM. Review of Systems Review of Systems: ROS unobtainable: Yes unobtainable due to endotracheal tube Exam Narrative: Exam Narrative: HEENT: ERRL, sclerae nonicteric, pharyngeal mucosa pink and intact NECK: No JVD CHEST: Clear to auscultation. HEART: NL S1/S2, regular, no murmur ABDOMEN: BS+, soft, nontender, no mass, no bruits EXTREMITIES: No cyanosis, edema, or clubbing NEUROLOGIC: CN intact and symmetric to inspection. MUSCULOSKELETAL: Tone and strength symmetric. PSYCH: Alert. Follows commands. Objective Data Vital Signs Vital Signs: Vital Signs - 24 hr 11/19/20 09:35 11/19/20 10:00 11/19/20 11:50 Temperature Pulse Rate 63 60 60 Respiratory Rate 22 H Blood Pressure 110/49 L Pulse Oximetry 100 100 100 11/19/20 12:00 11/19/20 14:00 11/19/20 15:14 Temperature 96.3 F L Pulse Rate 62 61 64 Respiratory Rate 15 15 14 Blood Pressure 93/46 L 97/65 L Pulse Oximetry 100 100 11/19/20 15:16 11/19/20 15:37 11/19/20 16:00 Temperature 96.8 F L Pulse Rate 64 63 63 Respiratory Rate 15 12 Blood Pressure 110/52 L Pulse Oximetry 100 100 11/19/20 17:05 11/19/20 18:00 11/19/20 20:00 Temperature 99.0 F Pulse Rate 63 63 65 Respiratory Rate 15 14 Blood Pressure 100/47 L 95/46 L Pulse Oximetry 100 100 100 11/19/20 20:40 11/19/20 21:57 11/19/20 22:00 Temperature Pulse Rate 67 67 66 Respiratory Rate 14 10 L Blood Pressure 113/54 L Pulse Oximetry 100 100 11/19/20 22:04 11/19/20 23:23 11/20/20 00:00 Temperature 99.0 F Pulse Rate 68 77 69 Respiratory Rate 14 15 Blood Pressure 106/54 L Pulse Oximetry 100 100 11/20/20 02:00 11/20/20 02:20 11/20/20 02:26 Temperature Pulse Rate 66 66 66 Respiratory Rate 14 14 Blood Pressure 99/42 L Pulse Oximetry 100 100 11/20/20 02:32 11/20/20 04:00 11/20/20 04:02 Temperature Pulse Rate 66 72 70 Respiratory Rate 14 17 Blood Pressure 105/52 L Pulse Oximetry 100 100 11/20/20 06:00 Temperature Pulse Rate 67 Respiratory Rate 14 Blood Pressure 98/49 L Pulse Oximetry 99 Intake/Output Intake/Output: Intake & Output 11/17/20 11/18/20 11/19/20 11/20/20 23:59 23:59 23:59 23:59 Intake Total 1999 1000 558 Output Total 50 1000 850 Balance 1950 0 -292 Meds/Results Medications: Active Medications Generic Name Dose Route Start Last Admin Trade Name Leesa PRN Reason Stop Dose Admin Albuterol 2.5 mg 11/19/20 14:00 11/20/20 02:25 Albuterol Sulfate Neb 2.5 Mg/0.5 Ml Inh INHALATION 2.5 mg Q6HRT NEW Administration Dextrose 12.5 gm 11/19/20 06:05 11/19/20 23:18 Dextrose
[2020-11-20 11:45] LABS: Glucose Point of Care 102 (65-105)
[2020-11-20] MEDS: FUROSEMIDE INJ 40 MG/4 ML VIAL 20 MG IV PUSH ×2 (12:15→17:41)
--- NOTE | 2020-11-20 12:23 | WPDINTPN ---
Progress Note: A&P Assessment and Plan (1) C. difficile colitis: Code(s): A04.72 - Enterocolitis due to Clostridium difficile, not specified as recurrent Status: Acute Assessment and Plan: Continuing oral vancomycin 250 mg p.o. Q 6 hours Since there are no other sources of infection I will discontinue IV vancomycin, ceftriaxone and azithromycin. (2) Acute CHF (congestive heart failure): Code(s): I50.9 - Heart failure, unspecified Status: Acute Assessment and Plan: Did well with IV diuretics. Replacing electrolytes today. (3) Acute hypoxemic respiratory failure: Code(s): J96.01 - Acute respiratory failure with hypoxia Status: Acute Assessment and Plan: Resolved and was extubated today. Additional Plan Code Status: Full per patient Total Critical Care Time - 35 minutes Due to a high probability of clinically significant, life threatening deterioration, the patient required my highest level of preparedness to intervene emergently and I personally spent this critical care time directly and personally managing the patient. This critical care time included obtaining a history; examining the patient; pulse oximetry; ordering and review of studies; arranging urgent treatment with development of a management plan; evaluation of patient's response to treatment; frequent reassessment; and discussions with other providers. It was exclusive of separately billable procedures and treating other patients and teaching time. Please see Assessment and Plan section and the rest of the note for further information on patient assessment and treatment Subjective Date/time seen: 11/20/20 12:23 Interval history: She is doing well and was extubated this morning. she diuresed well overnight. Review of Systems Review of Systems: All systems reviewed & are unremarkable except as noted in HPI and below Exam Narrative: Exam Narrative: Intubated, sedated and mechanically ventilated. Const: General: comfortable Nutritional Appearance: obese Limitations: physical limitations HENMT: Head: normal to inspection, normocephalic and atraumatic Eyes: General: appearance normal, both eyes and all related structures Resp: Effort & Inspection: labored Auscultation: crackles and diminished lung sounds Cardio: Jugular venous distension: no JVD Rate: regular rate Rhythm: regular rhythm Heart sounds: S1 normal heart sound present and S2 normal heart sound present GI: Inspection: normal to inspection Auscultation: normal bowel sounds Skin: General skin exam: normal color and no rashes or lesions noted Extrem: Other: Bilateral stumps with left stump having a minor wound that is not appear to be acutely infected. Objective Data Vital Signs Vital Signs: Vital Signs - 24 hr 11/19/20 14:00 11/19/20 15:14 11/19/20 15:16 Temperature Pulse Rate 61 64 64 Respiratory Rate 15 14 Blood Pressure 97/65 L Pulse Oximetry 100 100 11/19/20 15:37 11/19/20 16:00 11/19/20 17:05 Temperature 36.0 C L Pulse Rate 63 63 63 Respiratory Rate 15 12 Blood Pressure 110/52 L Pulse Oximetry 100 100 11/19/20 18:00 11/19/20 20:00 11/19/20 20:40 Temperature 37.2 C Pulse Rate 63 65 67 Respiratory Rate 15 14 Blood Pressure 100/47 L 95/46 L Pulse Oximetry 100 100 100 11/19/20 21:57 11/19/20 22:00 11/19/20 22:04 Temperature Pulse Rate 67 66 68 Respiratory Rate 14 10 L 14 Blood Pressure 113/54 L Pulse Oximetry 100 11/19/20 23:23 11/20/20 00:00 11/20/20 02:00 Temperature 37.2 C Pulse Rate 77 69 66 Respiratory Rate 15 14 Blood Pressure 106/54 L 99/42 L Pulse Oximetry 100 100 100 11/20/20 02:20 11/20/20 02:26 11/20/20 02:32 Temperature Pulse Rate 66 66 66 Respiratory Rate 14 14 Blood Pressure Pulse Oximetry 100 11/20/20 04:00 11/20/20 04:02 11/20/20 06:00 Temperature Pulse Rate 72 70 67 Respiratory Rate 17 14 Blood Pressure 105/52 L
[2020-11-20] MEDS: KCL 20 MEQ/SW 100 ML 100 ML 50 MEQ IVPB (13:20)
[2020-11-20 13:33] LABS: Hematocrit 33.1 % (37.0-47.0); Hemoglobin 9.9 g/dL (12.0-15.0); Mean Corpuscular HGB Conc 29.9 g/dl (32-36); Mean Corpuscular Hemoglobin 27.9 pg (26-34); Mean Corpuscular Volume 93.2 fl (80-100); Mean Platelet Volume 10.4 fl (7.4-10.4); Platelet Count Result 277 k/mm3 (150-375); Red Blood Count 3.55 M/mm3 (4.2-5.4); Red Cell Distribution Width 17.2 % (11.5-14.5); White Blood Count 16.5 K/mm3 (4.5-10.0)
[2020-11-20 13:45] LABS: Anion Gap -2 mmol/L (8-16); Blood Urea Nitrogen 14 mg/dL (7-17); Calcium 8.2 mg/dL (8.4-10.2); Carbon Dioxide 34 mmol/L (22-30); Chloride 104 mmol/L (98-107); Estimated CRCL calculation 46 ml/min; Estimated Glomerular Filt Rate 54; Glucose 153 mg/dL (65-105); Magnesium 1.9 mg/dL (1.6-2.3); Potassium 3.9 mmol/L (3.4-5.0); Sodium 136 mmol/L (137-145)
[2020-11-20] MEDS: MIDAZOLAM HCL (*CRX) 2 MG/2 ML VIAL 1 MG IV PUSH (14:12)
[2020-11-20 17:47] LABS: Glucose Point of Care 180 (65-105)
[2020-11-20 18:13] LABS: Anion Gap -1 mmol/L (8-16); Blood Urea Nitrogen 14 mg/dL (7-17); Calcium 8.1 mg/dL (8.4-10.2); Carbon Dioxide 33 mmol/L (22-30); Chloride 104 mmol/L (98-107); Estimated CRCL calculation 46 ml/min; Estimated Glomerular Filt Rate 54; Glucose 187 mg/dL (65-105); Potassium 4.1 mmol/L (3.4-5.0); Sodium 136 mmol/L (137-145)
[2020-11-20] MEDS: METOPROLOL TARTRATE 25 MG TABLET PO (20:00)
[2020-11-20] MEDS: INSULIN GLARGINE (*BKC) 100 UNITS/ML 21 UNITS SUB-Q (21:09)
[2020-11-20 21:53] LABS: Glucose Point of Care 147 (65-105)
[2020-11-21] VITALS (18 sets, daily range): BP systolic 90–126; BP diastolic 42–94; PULSE 71–94; RESP 19–78; TEMP 35.5–36.3; O2SAT 90–100; BMI 41.4
[2020-11-21] MEDS: ALBUTEROL SULFATE NEB 2.5 MG/0.5 ML INH INHALATION ×5 (02:10→20:27)
[2020-11-21 04:50] LABS: Glucose Point of Care 131 (65-105)
[2020-11-21] MEDS: CENTRAL LINE FLUSH 10 ML IV PUSH ×2 (06:03→18:30)
[2020-11-21 06:13] LABS: Base Excess ABG 4.4 mEq/l (+/-2.0); Fractional Inspired Oxygen 30 %; HCO3 ABG 29.5 mEq/l (22.0-26.0); Oxygen Content ABG 12.9 %vol (16.0-22.0); Oxygen Saturation ABG 96.4 % (95.0-100.0); Oxyhemoglobin 94.9 % THb (90.0-100.0); PCO2 ABG 46.7 mmHg (35.0-45.0); Total Hemoglobin 9.6 g/dL (12.0-18.0); pH ABG 7.418 (7.350-7.450)
[2020-11-21 06:17] LABS: Device NON-INVASIVE VENT; Modified Allen's Test Pass; Site Drawn RIGHT RADIAL
[2020-11-21 06:18] LABS: Non-Invasive Expiratory Pressure 6 CMH2O; Non-Invasive Inspiratory Pressure 12 CMH2O; Non-Invasive Vent Rate 4 /MIN
[2020-11-21 06:33] LABS: Alanine Aminotransferase 14 U/L (4-35); Albumin Level 2.9 g/dL (3.5-5.1); Alkaline Phosphatase 129 U/L (38-126); Anion Gap 1 mmol/L (8-16); Aspartate Amino Transferase 33 U/L (14-36); Bilirubin,Total 0.6 mg/dL (0.2-1.3); Blood Urea Nitrogen 15 mg/dL (7-17); Calcium 8.2 mg/dL (8.4-10.2); Carbon Dioxide 37 mmol/L (22-30); Chloride 104 mmol/L (98-107); Estimated CRCL calculation 51 ml/min; Estimated Glomerular Filt Rate > 60; Glucose 127 mg/dL (65-105); Potassium 3.6 mmol/L (3.4-5.0); Sodium 142 mmol/L (137-145)
[2020-11-21 06:34] LABS: Basophils Absolute Auto 0.1 K/mm3 (0.0-0.1); Basophils Percent Auto 0.9 % (0.2-1.2); Eosinophils Absolute Auto 0.2 K/mm3 (0-0.3); Eosinophils Percent Auto 2.1 % (0-4.4); Hematocrit 29.5 % (37.0-47.0); Hemoglobin 8.7 g/dL (12.0-15.0); Immature Granulocyte Absolute 0.18 K/mm3 (0.00-0.031); Immature Granulocyte Percent A 1.6 % (0-0.5); Lymphocytes Absolute Auto 1.93 K/mm3 (0.9-3.2); Lymphocytes Percent Auto 17.7 % (18.3-44.2); Mean Corpuscular HGB Conc 29.5 g/dl (32-36); Mean Corpuscular Hemoglobin 27.4 pg (26-34); Mean Corpuscular Volume 93.1 fl (80-100); Mean Platelet Volume 10.8 fl (7.4-10.4); Monocytes Percent Auto 9.3 % (2.6-8.5); Neutrophils Absolute Auto 7.5 K/mm3 (1.3-6.7); Neutrophils Percent Auto 68.4 % (45.5-73.1); Platelet Count Result 271 k/mm3 (150-375); Red Blood Count 3.17 M/mm3 (4.2-5.4); Red Cell Distribution Width 16.9 % (11.5-14.5); White Blood Count 10.9 K/mm3 (4.5-10.0)
[2020-11-21] MEDS: FUROSEMIDE INJ 40 MG/4 ML VIAL 20 MG IV PUSH ×2 (08:59→18:29)
[2020-11-21] MEDS: FAMOTIDINE 20 MG/2 ML VIAL IV PUSH (08:59)
[2020-11-21] MEDS: ENOXAPARIN 40 MG/0.4 ML SYRINGE SUB-Q (09:00)
--- NOTE | 2020-11-21 11:15 | PM.CNOR ---
Assessment and Plan Assessment and plan (1) Postoperative wound dehiscence: Qualifiers: Encounter type: initial encounter Qualified Code(s): T81.31XA - Disruption of external operation (surgical) wound, not elsewhere classified, initial encounter Code(s): T81.31XA - Disruption of external operation (surgical) wound, not elsewhere classified, initial encounter Status: Acute Assessment and Plan: 7 weeks, 5 days status post left [id number] amputation complicated by postoperative wound dehiscence. Patient is now 4 weeks, 6 days status post debridement of left anterior stump wound. She has been lost to follow up in the [place] wound clinic due to transportation complications with [facility]. She is no longer utilizing a wound VAC. Anterior stump wound with 50% necrosis and soft like tissue. No signs of active infection. Discussed condition, nature, etiology course of natural history. Conservative and operative treatment options reviewed as well as the risks and benefits of each. The patients questions were answered. The patient desires operative treatment. Discussed bedside debridement of left anterior stump wound. Risks of surgery including but not limited to neurovascular damage, wound complications, blood clot, pulmonary embolus, stroke, myocardial infarction, anesthetic risks up to and including were reviewed. Continued pain and possible dysfunction were explained. No guarantees were offered. The patient understands and wishes to proceed. Plan: Bedside debridement of left anterior stump wound Continue daily dressing changes. Silver gel, cover dry. Will arrange follow up in the [facility] wound clinic. Will continue to follow. (2) S/P BKA (below knee amputation): Qualifiers: Laterality: left Qualified Code(s): Z89.512 - Acquired absence of left leg below knee Code(s): Z89.519 - Acquired absence of unspecified leg below knee Status: Acute History of Present Illness HPI Consult date: 11/21/20 Requesting physician: Stanton Guerra MD Consult reason: other (Left BKA stump wound ) Chief complaint: Septic Shock, Covid PUI Narrative: Seven weeks, 5 days status post left [id number] amputation by Dr. Huerta complicated by postoperative wound dehiscence which was debrided 4 weeks, 6 days ago. The patient has been being followed in the [place] wound clinic but has been lost to follow-up recently due to transportation issues with her nursing facility. She was most recently seen by Dr. Huerta in the [facility] wound clinic on 10/28/20. She was admitted to [facility] due to acute respiratory failure and is now in the ICU for treatment. Orthopedic consult requested for evaluation of left stump wound. Review of Systems Review of Systems: All systems reviewed & are unremarkable except as noted in HPI and below PMFSH Past Medical History Medical History Absent pedal pulses Anemia CAD (coronary artery disease) CHF (congestive heart failure) Depression Diabetes mellitus Diabetes type 2, controlled Diabetic foot ulcer High cholesterol HTN (hypertension) Hypertension Hypothyroidism Infected stasis ulcer of left lower extremity LBBB (left bundle branch block) Lower extremity cellulitis Neuropathy NSTEMI (non-ST elevated myocardial infarction) Pt denies SC Osteomyelitis Osteomyelitis of left foot PAD (peripheral artery disease) Paroxysmal atrial fibrillation Peripheral arterial occlusive disease Postoperative wound dehiscence Uncontrolled diabetes mellitus Wound of foot Surgical History Surgical History Below-knee amputation of left lower extremity History of right below knee 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
[2020-11-21 11:34] LABS: Glucose Point of Care 167 (65-105)
[2020-11-21] MEDS: carvediloL 3.125 MG TABLET PO ×2 (12:52→20:48)
[2020-11-21] MEDS: POTASSIUM CHLORIDE 20 MEQ TABLET.ER PO (12:52)
[2020-11-21] MEDS: AMIODARONE HCL 200 MG TABLET PO (12:52)
[2020-11-21] MEDS: POLYSACCHARIDE IRON COMPLEX 150 MG CAPSULE PO (12:53)
--- NOTE | 2020-11-21 13:03 | P.OPB_ITS ---
Procedure Note - Brief Procedure Note - Brief Date of procedure: 11/21/20 Pre-op diagnosis: Septic Shock, Covid PUI Left BKA stump postoperative wound Post-op diagnosis: same Procedure performed: Debridement of left anterior stump postoperative wound dehiscence Description of procedure: Consent obtained and signed in chart. Debridement of the left anterior stump wound performed under sterile conditions with #15 blade knife. All devitalized, necrotic tissue and muscle sharply excised. 100% red/pink wound bed remaining. Sterile dressing in place s/p procedure. Anesthesia: none Surgeon: JOSE ALBERTO Coto Internal Medicine Doctor: None Estimated blood loss (mL): 0 Tourniquet time (min): 0 IV fluids (mL): 0 Urine output (mL): 0 Drains: No Packing: No Pathology: none sent Complications: No immediate complications Condition: stable Disposition: ICU (procedure performed at the bedside )
--- NOTE | 2020-11-21 13:48 | WPDINTPN ---
Progress Note: A&P Assessment and Plan (1) C. difficile colitis: Code(s): A04.72 - Enterocolitis due to Clostridium difficile, not specified as recurrent Status: Acute Assessment and Plan: Continuing oral vancomycin 250 mg p.o. Q 6 hours -IV antibiotics were discontinued on 11/20/2020 (2) Acute CHF (congestive heart failure): Code(s): I50.9 - Heart failure, unspecified Status: Acute Assessment and Plan: Did well with IV diuretics. Replacing electrolytes today. -continue diuretics (3) Acute hypoxemic respiratory failure: Code(s): J96.01 - Acute respiratory failure with hypoxia Status: Acute Assessment and Plan: Resolved and was extubated 11/20/2019 -on 2 L nasal -encouraged to incentive spirometry - (4) Wound dehiscence: Code(s): T81.30XA - Disruption of wound, unspecified, initial encounter Status: Acute Assessment and Plan: Wound dehiscence of the left stump, appreciate Ortho evaluation, wound was debrided this morning at bedside Additional Plan Code Status: Full per patient Total Critical Care Time - 33 minutes Disposition: Patient will be transferred out of the ICU Due to a high probability of clinically significant, life threatening deterioration, the patient required my highest level of preparedness to intervene emergently and I personally spent this critical care time directly and personally managing the patient. This critical care time included obtaining a history; examining the patient; pulse oximetry; ordering and review of studies; arranging urgent treatment with development of a management plan; evaluation of patient's response to treatment; frequent reassessment; and discussions with other providers. It was exclusive of separately billable procedures and treating other patients and teaching time. Please see Assessment and Plan section and the rest of the note for further information on patient assessment and treatment Subjective Date/time seen: 11/21/20 13:48 Interval history: Reason for consult CHF exacerbation, acute respiratory failure 11/21/2020: Patient was extubated successfully on 11/20/2020, remained on BiPAP overnight, on 2 L nasal cannula. Patient denies any shortness of breath, abdominal pain, nausea, vomiting. Patient does have wound dehiscence of the left stump which was debrided this morning. Patient is hemodynamically stable urine response to diuresis Review of Systems Review of Systems: All systems reviewed & are unremarkable except as noted in HPI and below Exam Const: General: comfortable and no acute distress HENMT: Mouth: Yes moist mucous membranes Other: 2 L nasal cannula Eyes: Sclera: sclerae normal Pupils: Equal, round and reactive pupils present Neck: Neck: supple Resp: Effort & Inspection: normal respiratory effort Auscultation: diminished lung sounds Cardio: Rate: regular rate Rhythm: regular rhythm GI: Inspection: non-distended GI Palp: Yes Soft to palpation and No Tenderness to palpation present (GI) Auscultation: normal bowel sounds Other: Obese : Other: Lindquist catheter placed Urinary Catheter: Urinary Catheter: patent and draining and urine clear Skin: Other: Postoperative open wound on the left stump with some necrotic tissue Neuro: Other: Patient is awake, alert, oriented, nonfocal Extrem: Other: Bilateral stumps Psych: Mental Status: mental status grossly normal Affect: normal affect Objective Data Vital Signs Vital Signs: Vital Signs - 24 hr 11/20/20 13:50 11/20/20 14:00 11/20/20 14:20 Temperature Pulse Rate 135 H 100 115 H Respiratory Rate 32 H 18 24 H Blood Pressure 126/76 Pulse Oximetry 94 95 11/20/20 16:00 11/20/20 18:00 11/20/20 20:00 Temperature 96.6 F L 97.1 F L Pulse Rate 98 92 92 Respiratory Rate 28 H 22 H 25 H Blood Pressure 118/68 112/58 L 114/61 Pulse Oximetry 98 92 94 11/20/20 21:28 11/20/20 21:40 11/20/20 22:00
--- NOTE | 2020-11-21 15:50 | PM.IMPN ---
Progress Note: A&P Assessment and Plan (1) IDDM (insulin dependent diabetes mellitus): Status: Acute Assessment and Plan: Add basal glargine to SSI Home dose 60 Units Additional 21 Units (2) Pressure ulcer of BKA stump: Code(s): T87.89 - Other complications of amputation stump; L89.899 - Pressure ulcer of other site, unspecified stage Status: Acute Assessment and Plan: On iv vancomycin (3) C. difficile colitis: Code(s): A04.72 - Enterocolitis due to Clostridium difficile, not specified as recurrent Status: Acute Assessment and Plan: On oral vancomycin (4) Acute CHF (congestive heart failure): Code(s): I50.9 - Heart failure, unspecified Status: Acute Assessment and Plan: Good diuresis overnight with IV furosemide (5) Acute hypoxemic respiratory failure: Code(s): J96.01 - Acute respiratory failure with hypoxia Status: Acute Assessment and Plan: CHF vs pneumonia Receiving vancomycin (6) Suspected COVID-19 virus infection: Code(s): Z20.822 - Contact with and (suspected) exposure to COVID-19 Status: Acute Assessment and Plan: Negative for COVID Additional Plan Pt stable for transfer to the medical floor BL amputee pt needs dressing changes Subjective Date/time seen: 11/21/20 15:50 Interval history: 80 year old female who [facility] Likely cause of resp distress is CHF exacerbation. Pt also has history of Cdiff colitis And DM. Was recently in hospital with Chf exacerbation and Left below-knee amputation wound dehiscence debridement in sep 2020. Pt is extubate successfully, can be transferred to the medical floor. Review of Systems Review of Systems: All systems reviewed & are unremarkable except as noted in HPI and below Exam Narrative: Exam Narrative: Elderly lady good spirits NECK: No JVD CHEST: Clear to auscultation. HEART: NL S1/S2, regular, no murmur ABDOMEN: BS+, soft, nontender, no mass, no bruits EXTREMITIES: BL amputee left leg stump with NOREEN wrap NEUROLOGIC: CN intact and symmetric to inspection. MUSCULOSKELETAL: Tone and strength symmetric. PSYCH: Alert. Follows commands. Objective Data Vital Signs Vital Signs: Vital Signs - 24 hr 11/20/20 16:00 11/20/20 18:00 11/20/20 20:00 Temperature 35.9 C L 36.2 C L Pulse Rate 98 92 92 Respiratory Rate 28 H 22 H 25 H Blood Pressure 118/68 112/58 L 114/61 Pulse Oximetry 98 92 94 11/20/20 21:28 11/20/20 21:40 11/20/20 22:00 Temperature Pulse Rate 84 83 79 Respiratory Rate 28 H 30 H 30 H Blood Pressure 106/61 Pulse Oximetry 95 98 11/21/20 00:00 11/21/20 01:23 11/21/20 02:00 Temperature 36.2 C L Pulse Rate 83 82 82 Respiratory Rate 32 H 24 H Blood Pressure 104/53 L 103/48 L Pulse Oximetry 93 95 11/21/20 02:10 11/21/20 04:00 11/21/20 06:00 Temperature 36.3 C L Pulse Rate 92 74 76 Respiratory Rate 78 H 25 H 27 H Blood Pressure 90/45 L 108/94 H Pulse Oximetry 92 98 97 11/21/20 08:00 11/21/20 08:12 11/21/20 08:13 Temperature 35.5 C L Pulse Rate 87 76 76 Respiratory Rate 33 H 21 H 23 H Blood Pressure 103/52 L Pulse Oximetry 96 100 11/21/20 10:00 11/21/20 14:20 Temperature Pulse Rate 87 89 Respiratory Rate 33 H 38 H Blood Pressure 98/42 L Pulse Oximetry 96 Intake/Output Intake/Output: Intake & Output 11/18/20 11/19/20 11/20/20 11/21/20 23:59 23:59 23:59 23:59 Intake Total 1999 1000 1018 240 Output Total 50 1000 2100 700 Balance [facility] 0 -3128 -167 Meds/Results Medications: Active Medications Generic Name Dose Route Start Last Admin Trade Name Freq PRN Reason Stop Dose Admin Acetaminophen 500 mg 11/21/20 11:52 Acetaminophen 500 Mg Tablet PO Q6H PRN Pain Albuterol 2.5 mg 11/19/20 14:00 11/21/20 14:20 Albuterol Sulfate Neb 2.5 Mg/0.5 Ml Inh INHALATION 2.5 mg Q6HRT S
[2020-11-21 16:40] LABS: Glucose Point of Care 214 (65-105)
--- NOTE | 2020-11-21 17:14 | PC.NURSE ---
This patient, Owen Escobar, was transferred to [facility] on 11/21/20 at 1705. Personal belongings sent with patient. Report given to Mariana MOLINA. Appropriate documentation sent with patient.
[2020-11-21] MEDS: INSULIN ASPART (*BKC) 100 UNITS/ML SUB-Q ×2 (17:17→20:51)
[2020-11-21] MEDS: INSULIN ASPART (*BKC) 100 UNITS/ML 6 UNITS SUB-Q (17:20)
[2020-11-21] MEDS: IPRATROPIUM BR 0.02% INH SOLN 0.5 MG/2.5 ML VIAL INHALATION (17:34)
--- NOTE | 2020-11-21 18:58 | PC.NURSE ---
This patient, Owen Escobar, was received from ICU on 11/21/20 at 1700. Patient/family oriented to unit policies and routines
[2020-11-21] MEDS: FLUTICASONE/SALMETEROL 115-21 MCG INHALER 1 PUFF 2 PUFF INHALATION (20:27)
[2020-11-21] MEDS: ATORVASTATIN 40 MG TABLET PO (20:48)
[2020-11-21] MEDS: METOPROLOL TARTRATE 25 MG TABLET PO (20:48)
[2020-11-21] MEDS: INSULIN GLARGINE (*BKC) 100 UNITS/ML 30 UNITS SUB-Q (20:52)
[2020-11-21 20:55] LABS: Glucose Point of Care 214 (65-105)
[2020-11-22] VITALS (18 sets, daily range): BP systolic 100–127; BP diastolic 48–70; PULSE 72–95; RESP 16–22; TEMP 35.8–36.2; O2SAT 90–96
[2020-11-22] MEDS: ALBUTEROL SULFATE NEB 2.5 MG/0.5 ML INH INHALATION ×4 (02:10→20:33)
[2020-11-22 08:08] LABS: Glucose Point of Care 125 (65-105)
[2020-11-22] MEDS: FLUTICASONE/SALMETEROL 115-21 MCG INHALER 1 PUFF 2 PUFF INHALATION ×2 (08:36→20:33)
[2020-11-22] MEDS: INSULIN GLARGINE (*BKC) 100 UNITS/ML 30 UNITS SUB-Q ×2 (09:22→20:56)
[2020-11-22] MEDS: INSULIN ASPART (*BKC) 100 UNITS/ML 6 UNITS SUB-Q ×3 (09:24→17:01)
[2020-11-22] MEDS: SILVERGEL (ELTA) 45 ML 1 APPLIC TOPICAL (09:25)
[2020-11-22] MEDS: POTASSIUM CHLORIDE 20 MEQ TABLET.ER PO (09:25)
[2020-11-22] MEDS: POLYSACCHARIDE IRON COMPLEX 150 MG CAPSULE PO (09:25)
[2020-11-22] MEDS: METOPROLOL TARTRATE 25 MG TABLET PO ×2 (09:25→20:53)
[2020-11-22] MEDS: carvediloL 3.125 MG TABLET PO ×2 (09:26→20:53)
[2020-11-22] MEDS: PANTOPRAZOLE 40 MG TABLET PO (09:26)
[2020-11-22] MEDS: ENOXAPARIN 40 MG/0.4 ML SYRINGE SUB-Q (09:27)
[2020-11-22] MEDS: AMIODARONE HCL 200 MG TABLET PO (09:27)
[2020-11-22] MEDS: FUROSEMIDE INJ 40 MG/4 ML VIAL 20 MG IV PUSH ×2 (10:15→17:05)
[2020-11-22 11:41] LABS: Glucose Point of Care 201 (65-105)
[2020-11-22] MEDS: INSULIN ASPART (*BKC) 100 UNITS/ML SUB-Q ×2 (12:03→20:57)
--- NOTE | 2020-11-22 12:39 | PM.PNORT ---
Progress Note: A&P Assessment and Plan (1) Postoperative wound dehiscence: Qualifiers: Encounter type: initial encounter Qualified Code(s): T81.31XA - Disruption of external operation (surgical) wound, not elsewhere classified, initial encounter Code(s): T81.31XA - Disruption of external operation (surgical) wound, not elsewhere classified, initial encounter Status: Acute Assessment and Plan: POD #1: Left BKA stump debridement Wound stable. Continue daily dressing changes with silver gel/cover dry. Wrap with kerlex. Elevate LLE on pillows, offload on pillows. Will arrange follow up in the [facility] wound clinic at discharge. (2) S/P BKA (below knee amputation): Qualifiers: Laterality: left Qualified Code(s): Z89.512 - Acquired absence of left leg below knee Code(s): Z89.519 - Acquired absence of unspecified leg below knee Status: Acute Subjective Subjective Date/Time Seen: 11/22/20 12:39 No new complaints. No c/o pain. Tolerating dressing changes. Review of Systems Review of Systems: All systems reviewed & are unremarkable except as noted in HPI and below Exam Const: General: cooperative and no acute distress Nutritional Appearance: overweight Orientation/consciousness: patient oriented x3 Limitations: no limitations HENMT: Head: normal to inspection Ears: hearing grossly normal bilaterally General nose exam: Normal external nose present Face and sinus: normal facial exam Mouth: Yes moist mucous membranes Teeth and gingiva: dentition normal Eyes: General: appearance normal, both eyes and all related structures Pupils: Equal, round and reactive pupils present EOM: EOMs intact bilaterally Neck: Neck: normal visual inspection Chest: Chest palpation & inspection: normal inspection of the chest Resp: Effort & Inspection: normal respiratory effort and able to speak in complete sentences Cardio: Jugular venous distension: no JVD Neuro: General: patient oriented x3 Cranial nerves: Yes Equal, round and reactive pupils present Extrem: Right lower extremity: knee (BKA, no open wounds ) Left lower extremity: knee (Left BKA ) Details: other (open wound ) Other: wound on the anterior aspect of the left stump with 60 % red/pink wound bed and 40% slough tissue. No depth to the wound bed noted. Surrounding tissue without redness, warmth, swelling or signs of active infection. Psych: Appearance: grossly normal Affect: normal affect Objective Data Vital Signs Vital Signs: Vital Signs - 24 hr 11/21/20 14:20 11/21/20 16:00 11/21/20 17:33 Temperature 35.7 C L Pulse Rate 89 91 94 Respiratory Rate 38 H 36 H 24 H Blood Pressure 102/77 Pulse Oximetry 95 11/21/20 20:00 11/21/20 20:30 11/21/20 20:41 Temperature Pulse Rate 80 89 87 Respiratory Rate 24 H 22 H 22 H Blood Pressure Pulse Oximetry 94 11/21/20 20:48 11/21/20 22:03 11/22/20 00:00 Temperature 36.1 C L 35.8 C L Pulse Rate 74 87 77 Respiratory Rate 20 20 Blood Pressure 126/53 L 109/56 L Pulse Oximetry 90 93 11/22/20 02:10 11/22/20 02:21 11/22/20 05:13 Temperature 36.1 C L Pulse Rate 85 87 84 Respiratory Rate 22 H 22 H 20 Blood Pressure 113/48 L Pulse Oximetry 95 11/22/20 08:38 11/22/20 08:44 11/22/20 09:00 Temperature Pulse Rate 76 75 Respiratory Rate 16 16 Blood Pressure Pulse Oximetry 96 90 11/22/20 09:25 11/22/20 09:27 11/22/20 10:59 Temperature 36.2 C L Pulse Rate 74 74 78 Respiratory Rate 20 Blood Pressure 100/70 Pulse Oximetry 95 Intake/Output Intake/Output: Intake & Output 11/19/20 11/20/20 11/21/20 11/22/20 23:59 23:59 23:59 23:59 Intake Total 1000 1018 660 970 Output Total 1000 2100 700 400 Balance 0 -1082 -40 570 Meds/Results Medications: Active Medications Generic Name Dose Route Start Last Admin Trade Name Freq PRN Reason Stop Dose Admin Acetaminophen 500 mg 11/21/20 11:52 Acetamino
--- NOTE | 2020-11-22 14:53 | PC.NURSE ---
On 11/22/20, the student, [EDGAR MILTON], provided care and completed [facility] documentation on this patient. I have reviewed the student's documentation and agree with the findings.
--- NOTE | 2020-11-22 16:56 | PM.PNORT ---
Progress Note: A&P Assessment and Plan (1) S/P BKA (below knee amputation): Qualifiers: Laterality: left Qualified Code(s): Z89.512 - Acquired absence of left leg below knee Code(s): Z89.519 - Acquired absence of unspecified leg below knee Status: Acute Assessment and Plan: evaluation of patient. Left below-knee amputation complicated by wound dehiscence and wound healing problems. Debridement yesterday. Appears stable at this time. Patient at risk for fluid overload and congestive heart failure. Will continue to follow. Subjective Subjective Date/Time Seen: 11/22/20 16:56 Patient awake and alert. No complaints of left leg pain Exam Const: General: cooperative and no acute distress Nutritional Appearance: overweight Orientation/consciousness: patient oriented x3 Limitations: no limitations HENMT: Head: normal to inspection Ears: hearing grossly normal bilaterally General nose exam: Normal external nose present Face and sinus: normal facial exam Mouth: Yes moist mucous membranes Teeth and gingiva: dentition normal Eyes: General: appearance normal, both eyes and all related structures Pupils: Equal, round and reactive pupils present EOM: EOMs intact bilaterally Neck: Neck: normal visual inspection Chest: Chest palpation & inspection: normal inspection of the chest Resp: Effort & Inspection: normal respiratory effort and able to speak in complete sentences Cardio: Jugular venous distension: no JVD Neuro: General: patient oriented x3 Cranial nerves: Yes Equal, round and reactive pupils present Extrem: Right lower extremity: knee (BKA, no open wounds ) Left lower extremity: knee (Left BKA ) Details: other (open wound ) Other: wound on the anterior aspect of the left stump with 60 % red/pink wound bed and 40% slough tissue. No depth to the wound bed noted. Surrounding tissue without redness, warmth, swelling or signs of active infection. Psych: Appearance: grossly normal Affect: normal affect Objective Data Vital Signs Vital Signs: Vital Signs - 24 hr 11/21/20 17:33 11/21/20 20:00 11/21/20 20:30 Temperature Pulse Rate 94 80 89 Respiratory Rate 24 H 24 H 22 H Blood Pressure Pulse Oximetry 94 11/21/20 20:41 11/21/20 20:48 11/21/20 22:03 Temperature 96.9 F L Pulse Rate 87 74 87 Respiratory Rate 22 H 20 Blood Pressure 126/53 L Pulse Oximetry 90 11/22/20 00:00 11/22/20 02:10 11/22/20 02:21 Temperature 96.4 F L Pulse Rate 77 85 87 Respiratory Rate 20 22 H 22 H Blood Pressure 109/56 L Pulse Oximetry 93 11/22/20 05:13 11/22/20 08:38 11/22/20 08:44 Temperature 96.9 F L Pulse Rate 84 76 75 Respiratory Rate 20 16 16 Blood Pressure 113/48 L Pulse Oximetry 95 96 11/22/20 09:00 11/22/20 09:25 11/22/20 09:27 Temperature Pulse Rate 74 74 Respiratory Rate Blood Pressure Pulse Oximetry 90 11/22/20 10:59 11/22/20 14:29 11/22/20 14:35 Temperature 97.2 F L Pulse Rate 78 75 76 Respiratory Rate 20 18 18 Blood Pressure 100/70 Pulse Oximetry 95 11/22/20 16:03 Temperature 96.7 F L Pulse Rate 72 Respiratory Rate 18 Blood Pressure 124/60 Pulse Oximetry 96 Intake/Output Intake/Output: Intake & Output 11/19/20 11/20/20 11/21/20 11/22/20 23:59 23:59 23:59 23:59 Intake Total 1000 5537 734 6406 Output Total 1000 2100 700 400 Balance 0 -1082 -40 750 Meds/Results Medications: Active Medications Generic Name Dose Route Start Last Admin Trade Name Freq PRN Reason Stop Dose Admin Acetaminophen 500 mg 11/21/20 11:52 Acetaminophen 500 Mg Tablet PO Q6H PRN Pain Albuterol 2.5 mg 11/19/20 14:00 11/22/20 14:26 Albuterol Sulfate Neb 2.5 Mg/0.5 Ml Inh INHALATION 2.5 mg Q6HRT NEW Administration Albuterol 2.5 mg 11/21/20 12:02 11/21/20 17:34 Albuterol Sulfate Neb 2.5 Mg/0.5 Ml Inh INHALATION 2.5 mg Q6H PRN Administration Shortness Of Breath Amiodarone HCl
[2020-11-22] MEDS: CENTRAL LINE FLUSH 10 ML IV PUSH (17:01)
[2020-11-22 17:19] LABS: Glucose Point of Care 172 (65-105)
--- NOTE | 2020-11-22 18:00 | PC.NURSE ---
On 11/22/20, the student, [ Yarelis Crews], provided care and [email or web address]. I have reviewed the student's documentation and agree with the findings.
--- NOTE | 2020-11-22 18:46 | PM.IMPN ---
Progress Note: A&P Assessment and Plan (1) Wound dehiscence: Code(s): T81.30XA - Disruption of wound, unspecified, initial encounter Status: Acute Assessment and Plan: Local care Appreciate [place] note (2) C. difficile colitis: Code(s): A04.72 - Enterocolitis due to Clostridium difficile, not specified as recurrent Status: Acute Assessment and Plan: On po Vanc. (3) Acute CHF (congestive heart failure): Code(s): I50.9 - Heart failure, unspecified Status: Acute Assessment and Plan: Stable I/O (4) Acute hypoxemic respiratory failure: Code(s): J96.01 - Acute respiratory failure with hypoxia Status: Acute Assessment and Plan: On NC BiPAP at nigh time. (5) IDDM (insulin dependent diabetes mellitus): Status: Chronic Assessment and Plan: Carb consistent diet ISS as needed Accu checks ACHS Subjective Date/time seen: 11/22/20 18:46 States that feels ok. Review of Systems Review of Systems: Narrative: Denies any discomfort currently Constitutional: Comments: no fevers, no rigors, no chills. Cardiovascular: Comments: no chest pain ,no sob. Respiratory: Comments: no cough, no sputum production. Gastrointestinal: Comments: no n/v/abdominal pain. Musculoskeletal: Comments: L bka Integumentary/Breasts: Comments: Stump wound. Neurologic: Comments: no focal sensory motor deficit Exam Narrative: Exam Narrative: Lying in bed. Const: General: comfortable, no acute distress, alert, awake and other (B/L BKA) Nutritional Appearance: average body habitus Orientation/consciousness: patient oriented x3 HENMT: Head: normal to inspection and normocephalic Ears: hearing grossly normal bilaterally General nose exam: Normal external nose present Face and sinus: normal facial exam Eyes: General: appearance normal, both eyes and all related structures Pupils: Equal, round and reactive pupils present EOM: EOMs intact bilaterally Neck: Neck: no lymphadenopathy and no JVD Lymphatic: no lymphadenopathy noted Resp: Effort & Inspection: able to speak in complete sentences Auscultation: clear to auscultation bilaterally Cardio: Jugular venous distension: no JVD Rate: regular rate Rhythm: regular rhythm GI: GI Palp: Yes Soft to palpation and Yes No hepatosplenomegaly present Skin: Wounds: wounds noted (L BKA stump.) Neuro: General: patient oriented x3 and CN's II-XI intact bilaterally Cranial nerves: Yes CN's II-XII intact bilaterally and Yes Equal, round and reactive pupils present Cognition (Neuro): normal cognition Speech: normal speech Motor exam (neuro): 5/5 motor strength present throughout Extrem: General: other (B/L BKA) Objective Data Vital Signs Vital Signs: Vital Signs - 24 hr 11/21/20 20:00 11/21/20 20:30 11/21/20 20:41 Temperature Pulse Rate 80 89 87 Respiratory Rate 24 H 22 H 22 H Blood Pressure Pulse Oximetry 94 11/21/20 20:48 11/21/20 22:03 11/22/20 00:00 Temperature 96.9 F L 96.4 F L Pulse Rate 74 87 77 Respiratory Rate 20 20 Blood Pressure 126/53 L 109/56 L Pulse Oximetry 90 93 11/22/20 02:10 11/22/20 02:21 11/22/20 05:13 Temperature 96.9 F L Pulse Rate 85 87 84 Respiratory Rate 22 H 22 H 20 Blood Pressure 113/48 L Pulse Oximetry 95 11/22/20 08:38 11/22/20 08:44 11/22/20 09:00 Temperature Pulse Rate 76 75 Respiratory Rate 16 16 Blood Pressure Pulse Oximetry 96 90 11/22/20 09:25 11/22/20 09:27 11/22/20 10:59 Temperature 97.2 F L Pulse Rate 74 74 78 Respiratory Rate 20 Blood Pressure 100/70 Pulse Oximetry 95 11/22/20 14:29 11/22/20 14:35 11/22/20 16:03 Temperature 96.7 F L Pulse Rate 75 76 72 Respiratory Rate 18 18 18 Blood Pressure 124/60 Pulse Oximetry 96 Intake/Output Intake/Output: Intake & Output 11/19/20 11/20/20 11/21/20 11/22/20 23:59 23:59 23:59 23:59 Intake Total 1000 8692 507 1669 Output Total 1000
[2020-11-22] MEDS: IPRATROPIUM BR 0.02% INH SOLN 0.5 MG/2.5 ML VIAL INHALATION (20:32)
[2020-11-22] MEDS: ATORVASTATIN 40 MG TABLET PO (20:53)
[2020-11-22 20:58] LABS: Glucose Point of Care 264 (65-105)
[2020-11-23] VITALS (19 sets, daily range): BP systolic 118–128; BP diastolic 47–51; PULSE 66–78; RESP 16–20; TEMP 35.7–36.9; O2SAT 90–98
[2020-11-23] MEDS: ALBUTEROL SULFATE NEB 2.5 MG/0.5 ML INH INHALATION ×4 (01:48→20:42)
[2020-11-23] MEDS: FLUTICASONE/SALMETEROL 115-21 MCG INHALER 1 PUFF 2 PUFF INHALATION (07:44)
[2020-11-23 07:57] LABS: Glucose Point of Care 86 (65-105)
--- NOTE | 2020-11-23 08:23 | PM.PNORT ---
Progress Note: A&P Assessment and Plan (1) S/P BKA (below knee amputation): Qualifiers: Laterality: left Qualified Code(s): Z89.512 - Acquired absence of left leg below knee Code(s): Z89.519 - Acquired absence of unspecified leg below knee Status: Acute Assessment and Plan: Left below-knee amputation complicated by wound dehiscence and wound healing problems. POD #2 s/p Debridement. Appears stable at this time. Continuing to diurese. Patient at risk for fluid overload and congestive heart failure. Will continue to follow. Subjective Subjective Date/Time Seen: 11/23/20 08:23 patient awake and alert. Eating breakfast. States feeling better. Exam Const: General: cooperative and no acute distress Nutritional Appearance: overweight Orientation/consciousness: patient oriented x3 Limitations: no limitations HENMT: Head: normal to inspection Ears: hearing grossly normal bilaterally General nose exam: Normal external nose present Face and sinus: normal facial exam Mouth: Yes moist mucous membranes Teeth and gingiva: dentition normal Eyes: General: appearance normal, both eyes and all related structures Pupils: Equal, round and reactive pupils present EOM: EOMs intact bilaterally Neck: Neck: normal visual inspection Chest: Chest palpation & inspection: normal inspection of the chest Resp: Effort & Inspection: normal respiratory effort and able to speak in complete sentences Cardio: Jugular venous distension: no JVD Neuro: General: patient oriented x3 Cranial nerves: Yes Equal, round and reactive pupils present Extrem: Right lower extremity: knee (BKA, no open wounds ) Left lower extremity: knee (Left BKA ) Details: other (open wound ) Other: wound on the anterior aspect of the left stump with 60 % red/pink wound bed and 40% slough tissue. No depth to the wound bed noted. Surrounding tissue without redness, warmth, swelling or signs of active infection. Psych: Appearance: grossly normal Affect: normal affect Objective Data Vital Signs Vital Signs: Vital Signs - 24 hr 11/22/20 08:38 11/22/20 08:44 11/22/20 09:00 Temperature Pulse Rate 76 75 Respiratory Rate 16 16 Blood Pressure Pulse Oximetry 96 90 11/22/20 09:25 11/22/20 09:27 11/22/20 10:59 Temperature 97.2 F L Pulse Rate 74 74 78 Respiratory Rate 20 Blood Pressure 100/70 Pulse Oximetry 95 11/22/20 14:29 11/22/20 14:35 11/22/20 16:03 Temperature 96.7 F L Pulse Rate 75 76 72 Respiratory Rate 18 18 18 Blood Pressure 124/60 Pulse Oximetry 96 11/22/20 20:33 11/22/20 20:37 11/22/20 20:41 Temperature Pulse Rate 74 74 75 Respiratory Rate 18 18 18 Blood Pressure Pulse Oximetry 93 11/22/20 20:53 11/22/20 22:02 11/23/20 00:00 Temperature 96.7 F L 96.2 F L Pulse Rate 95 75 70 Respiratory Rate 18 20 Blood Pressure 127/49 L 128/47 L Pulse Oximetry 95 96 11/23/20 01:49 11/23/20 01:59 11/23/20 04:55 Temperature 97 F L Pulse Rate 74 75 66 Respiratory Rate 18 18 20 Blood Pressure 120/50 L Pulse Oximetry 98 11/23/20 07:44 Temperature Pulse Rate 77 Respiratory Rate Blood Pressure Pulse Oximetry Intake/Output Intake/Output: Intake & Output 11/20/20 11/21/20 11/22/20 11/23/20 23:59 23:59 23:59 23:59 Intake Total 5198 614 0327 190 Output Total 2100 700 750 650 Balance -1082 -40 840 -460 Meds/Results Medications: Active Medications Generic Name Dose Route Start Last Admin Trade Name Freq PRN Reason Stop Dose Admin Acetaminophen 500 mg 11/21/20 11:52 Acetaminophen 500 Mg Tablet PO Q6H PRN Pain Albuterol 2.5 mg 11/19/20 14:00 11/23/20 07:41 Albuterol Sulfate Neb 2.5 Mg/0.5 Ml Inh INHALATION 2.5 mg Q6HRT NEW Administration Albuterol 2.5 mg 11/21/20 12:02 11/21/20 17:34 Albuterol Sulfate Neb 2.5 Mg/0.5 Ml Inh INHALATION 2.5 mg Q6H PRN Administration Shortness Of Breath Amiodarone HCl 200
[2020-11-23] MEDS: POLYSACCHARIDE IRON COMPLEX 150 MG CAPSULE PO (08:36)
[2020-11-23] MEDS: PANTOPRAZOLE 40 MG TABLET PO (08:36)
[2020-11-23] MEDS: METOPROLOL TARTRATE 25 MG TABLET PO ×2 (08:37→20:19)
[2020-11-23] MEDS: carvediloL 3.125 MG TABLET PO ×2 (08:37→20:19)
[2020-11-23] MEDS: ENOXAPARIN 40 MG/0.4 ML SYRINGE SUB-Q (08:37)
[2020-11-23] MEDS: FUROSEMIDE INJ 40 MG/4 ML VIAL 20 MG IV PUSH ×2 (08:37→16:51)
[2020-11-23] MEDS: POTASSIUM CHLORIDE 20 MEQ TABLET.ER PO (08:38)
[2020-11-23] MEDS: AMIODARONE HCL 200 MG TABLET PO (08:38)
[2020-11-23] MEDS: SILVERGEL (ELTA) 45 ML 1 APPLIC TOPICAL (08:40)
[2020-11-23 08:58] LABS: Glucose Point of Care 127 (65-105)
[2020-11-23] MEDS: INSULIN GLARGINE (*BKC) 100 UNITS/ML 30 UNITS SUB-Q ×2 (08:58→20:20)
[2020-11-23] MEDS: INSULIN ASPART (*BKC) 100 UNITS/ML 6 UNITS SUB-Q ×3 (08:58→16:47)
[2020-11-23 11:43] LABS: Glucose Point of Care 147 (65-105)
[2020-11-23 16:41] LABS: Glucose Point of Care 116 (65-105)
[2020-11-23] MEDS: CENTRAL LINE FLUSH 10 ML IV PUSH (16:51)
[2020-11-23 17:16] LABS: SARS-CoV-2 RNA PCR Negative
--- NOTE | 2020-11-23 18:19 | PM.IMPN ---
Progress Note: A&P Assessment and Plan (1) Wound dehiscence: Code(s): T81.30XA - Disruption of wound, unspecified, initial encounter Status: Acute Assessment and Plan: Local wound care by ortho (2) Acute hypoxemic respiratory failure: Code(s): J96.01 - Acute respiratory failure with hypoxia Status: Acute Assessment and Plan: On BiPAP at night time NC during the day (3) C. difficile colitis: Code(s): A04.72 - Enterocolitis due to Clostridium difficile, not specified as recurrent Status: Acute Assessment and Plan: PO vanc (4) Acute CHF (congestive heart failure): Code(s): I50.9 - Heart failure, unspecified Status: Acute Assessment and Plan: Gentle diuresis BMP in am Lasix ongoing I/O's Positive balance (5) Pressure ulcer of BKA stump: Code(s): T87.89 - Other complications of amputation stump; L89.899 - Pressure ulcer of other site, unspecified stage Status: Acute Assessment and Plan: Local care (6) IDDM (insulin dependent diabetes mellitus): Status: Chronic Assessment and Plan: Accu checks ACHS ISS as needed (7) CAD (coronary artery disease): Code(s): I25.10 - Atherosclerotic heart disease of [place] coronary artery without angina pectoris Status: Acute Assessment and Plan: Stable (8) Postoperative wound dehiscence: Qualifiers: Encounter type: initial encounter Qualified Code(s): T81.31XA - Disruption of external operation (surgical) wound, not elsewhere classified, initial encounter Code(s): T81.31XA - Disruption of external operation (surgical) wound, not elsewhere classified, initial encounter Status: Acute Assessment and Plan: Local care (9) Peripheral vascular disease: Code(s): I73.9 - Peripheral vascular disease, unspecified Status: Acute Assessment and Plan: S/P B/L BKA (10) Anemia of other chronic disease: Code(s): D63.8 - Anemia in other chronic diseases classified elsewhere Status: Chronic Assessment and Plan: Transfuse as needed Subjective Date/time seen: 11/23/20 18:19 States that feels better wants to go home Review of Systems Review of Systems: Narrative: No new issues overnight. Constitutional: Comments: no fevers, no rigors, no chills. Cardiovascular: Comments: no chest pain. Respiratory: Comments: no sob Gastrointestinal: Comments: no n/v/abdominal pain Musculoskeletal: Comments: B/L BKA, L stump non healing wound. Integumentary/Breasts: Skin/Breast: Reports wounds (L stump wound dehiscense ) Neurologic: Comments: no sensory motor deficit Exam Narrative: Exam Narrative: Sitting in chair. Const: General: other (Chronically ill looking.) Nutritional Appearance: average body habitus Orientation/consciousness: patient oriented x3 HENMT: Head: normal to inspection and normocephalic Ears: hearing grossly normal bilaterally General nose exam: Normal external nose present Face and sinus: normal facial exam Eyes: General: appearance normal, both eyes and all related structures Pupils: Equal, round and reactive pupils present EOM: EOMs intact bilaterally Neck: Neck: supple and no JVD Resp: Effort & Inspection: able to speak in complete sentences Auscultation: clear to auscultation bilaterally Cardio: Jugular venous distension: no JVD Rate: regular rate Rhythm: regular rhythm GI: GI Palp: Yes Soft to palpation and Yes No hepatosplenomegaly present Skin: Wounds: wounds noted (L stump wound.) Neuro: General: patient oriented x3 and CN's II-XI intact bilaterally Cranial nerves: Yes CN's II-XII intact bilaterally Cognition (Neuro): normal cognition Speech: normal speech Motor exam (neuro): 5/5 motor strength present throughout Extrem: General: other (B/L BKA) Objective Data Vital Signs Vital Signs: Vital Signs - 24 hr 11/22/20 20:33 11/22/20 20:37 11/22/20 2
[2020-11-23] MEDS: ATORVASTATIN 40 MG TABLET PO (20:19)
[2020-11-23 20:44] LABS: Glucose Point of Care 168 (65-105)
[2020-11-24] VITALS (12 sets, daily range): BP systolic 112–131; BP diastolic 48–73; PULSE 65–75; RESP 16–20; TEMP 36.1–36.4; O2SAT 90–98
[2020-11-24] MEDS: ALBUTEROL SULFATE NEB 2.5 MG/0.5 ML INH INHALATION ×4 (01:58→19:45)
[2020-11-24 05:22] LABS: Basophils Absolute Auto 0.2 K/mm3 (0.0-0.1); Basophils Percent Auto 1.5 % (0.2-1.2); Eosinophils Absolute Auto 0.3 K/mm3 (0-0.3); Eosinophils Percent Auto 3.3 % (0-4.4); Hematocrit 29.4 % (37.0-47.0); Hemoglobin 8.5 g/dL (12.0-15.0); Immature Granulocyte Absolute 0.22 K/mm3 (0.00-0.031); Immature Granulocyte Percent A 2.2 % (0-0.5); Lymphocytes Absolute Auto 1.99 K/mm3 (0.9-3.2); Lymphocytes Percent Auto 20.1 % (18.3-44.2); Mean Corpuscular HGB Conc 28.9 g/dl (32-36); Mean Corpuscular Hemoglobin 26.9 pg (26-34); Mean Platelet Volume 10.3 fl (7.4-10.4); Monocytes Absolute Auto 0.7 K/mm3 (0.1-0.6); Monocytes Percent Auto 7.5 % (2.6-8.5); Neutrophils Absolute Auto 6.5 K/mm3 (1.3-6.7); Neutrophils Percent Auto 65.4 % (45.5-73.1); Platelet Count Result 329 k/mm3 (150-375); Red Blood Count 3.16 M/mm3 (4.2-5.4); Red Cell Distribution Width 16.3 % (11.5-14.5); White Blood Count 9.9 K/mm3 (4.5-10.0)
[2020-11-24 05:42] LABS: Anion Gap -1 mmol/L (8-16); Blood Urea Nitrogen 15 mg/dL (7-17); Calcium 8.4 mg/dL (8.4-10.2); Carbon Dioxide 38 mmol/L (22-30); Chloride 101 mmol/L (98-107); Estimated CRCL calculation 45 ml/min; Estimated Glomerular Filt Rate 54; Glucose 64 mg/dL (65-105); Sodium 138 mmol/L (137-145)
[2020-11-24 06:38] LABS: Glucose Point of Care 78 (65-105)
[2020-11-24] MEDS: AMIODARONE HCL 200 MG TABLET PO (08:28)
[2020-11-24] MEDS: carvediloL 3.125 MG TABLET PO (08:28)
[2020-11-24] MEDS: ENOXAPARIN 40 MG/0.4 ML SYRINGE SUB-Q (08:29)
[2020-11-24] MEDS: POLYSACCHARIDE IRON COMPLEX 150 MG CAPSULE PO (08:29)
[2020-11-24] MEDS: METOPROLOL TARTRATE 25 MG TABLET PO (08:30)
[2020-11-24] MEDS: SILVERGEL (ELTA) 45 ML 1 APPLIC TOPICAL (08:30)
[2020-11-24] MEDS: PANTOPRAZOLE 40 MG TABLET PO (08:30)
[2020-11-24] MEDS: POTASSIUM CHLORIDE 20 MEQ TABLET.ER PO (08:31)
[2020-11-24] MEDS: INSULIN GLARGINE (*BKC) 100 UNITS/ML 30 UNITS SUB-Q (08:36)
[2020-11-24] MEDS: FLUTICASONE/SALMETEROL 115-21 MCG INHALER 1 PUFF 2 PUFF INHALATION ×2 (08:38→19:45)
--- NOTE | 2020-11-24 09:20 | PM.PNORT ---
Progress Note: A&P Assessment and Plan (1) S/P BKA (below knee amputation): Qualifiers: Laterality: left Qualified Code(s): Z89.512 - Acquired absence of left leg below knee Code(s): Z89.519 - Acquired absence of unspecified leg below knee Status: Acute Assessment and Plan: POD #3: Left BKA stump debridement Wound stable. Continue daily dressing changes with silver gel/cover dry. Wrap with kerlex. Elevate LLE on pillows, offload on pillows. Will arrange follow up in the [facility] wound clinic at discharge for next saturday. Dispo: SNF when medically stable. Subjective Subjective Date/Time Seen: 11/24/20 09:20 No new complaints. No c/o pain. Tolerating dressing changes. Review of Systems Review of Systems: All systems reviewed & are unremarkable except as noted in HPI and below Exam Const: General: cooperative and no acute distress Nutritional Appearance: overweight Orientation/consciousness: patient oriented x3 Limitations: no limitations HENMT: Head: normal to inspection Ears: hearing grossly normal bilaterally General nose exam: Normal external nose present Face and sinus: normal facial exam Mouth: Yes moist mucous membranes Teeth and gingiva: dentition normal Eyes: General: appearance normal, both eyes and all related structures Pupils: Equal, round and reactive pupils present EOM: EOMs intact bilaterally Neck: Neck: normal visual inspection Chest: Chest palpation & inspection: normal inspection of the chest Resp: Effort & Inspection: normal respiratory effort and able to speak in complete sentences Cardio: Jugular venous distension: no JVD Neuro: General: patient oriented x3 Cranial nerves: Yes Equal, round and reactive pupils present Extrem: Right lower extremity: knee (BKA, no open wounds ) Left lower extremity: knee (Left BKA ) Details: other (open wound ) Other: Wound on the anterior aspect of the left stump with 60% red/pink wound bed and 40% slough tissue. No depth to the wound bed noted. Surrounding tissue without redness, warmth, swelling or signs of active infection. Psych: Appearance: grossly normal Affect: normal affect Objective Data Vital Signs Vital Signs: Vital Signs - 24 hr 11/23/20 09:30 11/23/20 13:11 11/23/20 13:12 Temperature Pulse Rate 74 74 Respiratory Rate 18 18 Blood Pressure Pulse Oximetry 98 92 11/23/20 13:20 11/23/20 13:49 11/23/20 20:19 Temperature 36.9 C Pulse Rate 74 72 77 Respiratory Rate 18 18 Blood Pressure 118/48 L Pulse Oximetry 98 11/23/20 20:35 11/23/20 20:43 11/23/20 20:50 Temperature Pulse Rate 78 74 Respiratory Rate 18 18 Blood Pressure Pulse Oximetry 93 11/23/20 22:22 11/24/20 00:00 11/24/20 01:58 Temperature 36.1 C L 36.1 C L Pulse Rate 77 74 70 Respiratory Rate 20 20 18 Blood Pressure 126/49 L 127/48 L Pulse Oximetry 90 90 11/24/20 02:07 11/24/20 04:52 11/24/20 08:28 Temperature 36.1 C L Pulse Rate 72 66 74 Respiratory Rate 18 18 Blood Pressure 112/48 L Pulse Oximetry 90 11/24/20 08:30 11/24/20 08:39 Temperature Pulse Rate 74 Respiratory Rate Blood Pressure Pulse Oximetry 93 Intake/Output Intake/Output: Intake & Output 11/21/20 11/22/20 11/23/20 11/24/20 23:59 23:59 23:59 23:59 Intake Total 660 1590 1770 190 Output Total 464 539 9948 900 Balance -40 840 470 -710 Meds/Results Medications: Active Medications Generic Name Dose Route Start Last Admin Trade Name Freq PRN Reason Stop Dose Admin Acetaminophen 500 mg 11/21/20 11:52 Acetaminophen 500 Mg Tablet PO Q6H PRN Pain Albuterol 2.5 mg 11/19/20 14:00 11/24/20 08:38 Albuterol Sulfate Neb 2.5 Mg/0.5 Ml Inh INHALATION 2.5 mg Q6HRT NEW Administration Albuterol 2.5 mg 11/21/20 12:02 11/21/20 17:34 Albuterol Sulfate Neb 2.5 Mg/0.5 Ml Inh INHALATION 2.5 mg Q6H PRN Administration Shortness Of Breath Amiodarone HCl 200 mg
[2020-11-24] MEDS: FUROSEMIDE INJ 40 MG/4 ML VIAL 20 MG IV PUSH (09:32)
--- NOTE | 2020-11-24 11:45 | PCNFU ---
Nutrition Follow-Up Complete: Increased protein/kcal needs related to increased needs for healing as evidenced by unhealed wounds (BKA stump pressure ulcer, deep tissue injury/maceration to coccyx). Goal: Patient to consume 75% of meals/supplements or greater. Patient is progressing towards goal. We will continue current goal. Pt current nutrition is DBCC/4 gm Na. Last recorded weight is 98.5 kg down from 102.7 kg on admit. Bowel Motility:+BM reported 2/3 Labs Reviewed:GFR 54,Glu 64,Hct 29.4,Hgb 8.5 Meds Noted:Vancomycin,Lovenox,Lantus,Protonix Additional Notes: Nutrition follow up today. Patient states to no diet concerns. She is tolerating oral intake, eating 75-100% of meals. Diet supplements: Tj BID and Glucerna shake once daily for wound healing. Patient prefers chocolate for her Glucerna shake, diet office is aware of flavor preference. Agree with diet orders. Monitoring: weight, labs, oral intake every 5 days.
[2020-11-24 12:05] LABS: Glucose Point of Care 122 (65-105)
[2020-11-24] MEDS: INSULIN ASPART (*BKC) 100 UNITS/ML 6 UNITS SUB-Q ×2 (12:32→17:46)
--- NOTE | 2020-11-24 13:09 | PM.DS ---
DS: Admitting Diagnosis Admitting Diagnosis Admitting Diagnosis: (1) Acute respiratory failure: (2) Septic shock: J18.9 - Pneumonia, unspecified organism (5) IDDM (insulin dependent diabetes mellitus): (6) Leukocytosis: . (7) Thrombocytosis: (8) Abnormal urinalysis: L89.90 - Pressure ulcer of unspecified site, unspecified stage DS: Discharge Diagnosis Discharge Diagnosis (1) Acute hypoxemic respiratory failure: Code(s): J96.01 - Acute respiratory failure with hypoxia Status: Acute Assessment and Plan: Resolved Was weaned off of ventilator (2) Septic shock: Code(s): A41.9 - Sepsis, unspecified organism; R65.21 - Severe sepsis with septic shock Status: Acute Assessment and Plan: Resolved (3) Wound dehiscence: Code(s): T81.30XA - Disruption of wound, unspecified, initial encounter Status: Acute Assessment and Plan: S/p debridement Local care Follow up in the outpatient setting. (4) C. difficile colitis: Code(s): A04.72 - Enterocolitis due to Clostridium difficile, not specified as recurrent Status: Acute Assessment and Plan: Stable Follow up in the outpatient setting. (5) Acute CHF (congestive heart failure): Code(s): I50.9 - Heart failure, unspecified Status: Acute Assessment and Plan: Resolved (6) Suspected COVID-19 virus infection: Code(s): Z20.822 - Contact with and (suspected) exposure to COVID-19 Status: Acute Assessment and Plan: Ruled out (7) Pressure ulcer of BKA stump: Code(s): T87.89 - Other complications of amputation stump; L89.899 - Pressure ulcer of other site, unspecified stage Status: Acute Assessment and Plan: S/p debridement (8) Leukocytosis: Qualifiers: Leukocytosis type: unspecified Qualified Code(s): D72.829 - Elevated white blood cell count, unspecified Code(s): D72.829 - Elevated white blood cell count, unspecified Status: Acute Assessment and Plan: Resolved Follow up in the outpatient setting. (9) Bilateral pneumonia: Qualifiers: Pneumonia type: due to unspecified organism Lung location: unspecified part of lung Qualified Code(s): J18.9 - Pneumonia, unspecified organism Code(s): J18.9 - Pneumonia, unspecified organism Status: Acute Assessment and Plan: Ruled out Negative cx No sputum production or change in quality Infiltrates resolved with diuresis DS: Summary Hospital Course Hospital Course: This is a 80 year old female who was brought to the hospital in acute respiratory distress from the [facility]. She was intubated in the ER secondary to her respiratory distress. Routine labs showed an elevated WBC of 29,500 and CXR with extensive bilateral pulmonary infiltrates. The patient was started on early goal directed therapy. The patient continued to be hypotensive despite an adequate IV fluid bolus and a central IV line was placed and she was started on IV vasopressors. The patient is intubated and sedated and placed in ICU This patient with acute hypoxemic respiratory failure likely from congestive heart failure rather than pneumonia. CT of the chest which looked unchanged compared to prior CTs from 4-6 weeks prior. The elevation in her white count may be more likely due to her C difficile colitis rather than pneumonia. Nonetheless broad spectrum antibiotics were continued. Ortho was consulted due to L BKA stump wound and wound was debrided at bed side and continued to follow the patient. Patient was also diuresed She was ruled out for Covid 19 as well Patient was successfully extubated and transferred to medical floor She continued to wear BiPAP at night time A home O2 eval was done prior to discharge Patient participated with PT/OT in therapy sessions and was discharged to SNF Time Spent with
[2020-11-24 17:08] LABS: Glucose Point of Care 124 (65-105)
[2020-11-24] MEDS: NEOMYCIN/POLYMYXIN/BACITRACIN OINTMENT PACKET 1 PACKET (17:47)
== END 2020-11-24 19:50 | DRG 853 ==
LOC: ANHED 22:51 → ANHICU 11-19 06:41 → ANH2MED 11-22 13:10 → ANHICU 11-25 16:04
PROVIDERS: Internal Medicine; Internal Medicine Critical Care Medicine; Admitting Provider Family Medicine; Emergency Provider Emergency Medicine; PCP Family Medicine; Visit Provider Internal Medicine
DX: A41.9 Sepsis, unspecified organism (principal); R65.21 Severe sepsis with septic shock; J96.01 Acute respiratory failure with hypoxia; J96.02 Acute respiratory failure with hypercapnia; I50.33 Acute on chronic diastolic (congestive) heart failure; A04.72 Enterocolitis due to Clostridium difficile, not specified as recurrent; T81.31XA Disruption of external operation (surgical) wound, not elsewhere classified, initial encounter; I48.20 Chronic atrial fibrillation, unspecified; Z20.822 Contact with and (suspected) exposure to COVID-19; D72.829 Elevated white blood cell count, unspecified; R82.90 Unspecified abnormal findings in urine; L89.150 Pressure ulcer of sacral region, unstageable; T87.89 Other complications of amputation stump; L89.899 Pressure ulcer of other site, unspecified stage; I25.10 Atherosclerotic heart disease of native coronary artery without angina pectoris; F32.9 Major depressive disorder, single episode, unspecified; I11.0 Hypertensive heart disease with heart failure; I44.7 Left bundle-branch block, unspecified; E03.9 Hypothyroidism, unspecified; D63.8 Anemia in other chronic diseases classified elsewhere; E11.42 Type 2 diabetes mellitus with diabetic polyneuropathy; E11.51 Type 2 diabetes mellitus with diabetic peripheral angiopathy without gangrene; E66.9 Obesity, unspecified; Z68.39 Body mass index [BMI] 39.0-39.9, adult; I25.2 Old myocardial infarction; Z89.512 Acquired absence of left leg below knee; Z89.511 Acquired absence of right leg below knee; Z95.1 Presence of aortocoronary bypass graft; Z87.891 Personal history of nicotine dependence
CPT/HCPCS: 31500; 36415; 36556; 36600; 51702; 71045; 71275; 80048; 80053; 81001; 82805; 82948; 83605; 83735; 83880; 84484; 85025; 85027; 85380; 85610; 85730; 86140; 87040; 87070; 87086; 87088; 87205; 93005; 94002; 94003; 94640; 96365; 96366; 96367; 97162; 97166; 99291; A9270; C1751; C9803; J0456; J0696; J1650; J1815; J1940; J2250; J2704; J3370; J3480; J7030; J7120; Q9967; U0003; U0005

== ENCOUNTER 2020-12-16 07:28 | Outpatient (RCR) | payer OTHER, SELFPAY ==
--- NOTE | 2020-10-25 08:47 | PCWOUND ---
WOCN NOTE patient did not show up for appointment.
--- NOTE | 2020-10-28 08:56 | P.PNOP_ITS ---
Progress Note: A&P Assessment and Plan (1) S/P BKA (below knee amputation): Qualifiers: Laterality: left Qualified Code(s): Z89.512 - Acquired absence of left leg below knee Code(s): Z89.519 - Acquired absence of unspecified leg below knee Status: Acute Assessment and Plan: 4 weeks 2 days status post left below-knee amputation complicated by postoperative wound dehiscence, 10 days status post debridement wound. Wound appears better granulated and healing at today's visit. 70% viable tissue. Wound depth improved. Continue with wound VAC with 3 times per week change of dressing. Follow-up in wound clinic in 2 weeks for re-evaluation. Continue with sacral wound care as directed. (2) Acute systolic heart failure: Code(s): I50.21 - Acute systolic (congestive) heart failure Status: Acute Assessment and Plan: Review of medication from fdc list. Patient currently not on her Lasix and amiodarone as directed at the time of discharge. Bilateral leg edema and redness consistent with fluid overload. Will restart Lasix and amiodarone as previously directed by Cardiology. Recommend follow-up with cardiology for further evaluation and treatment. Recommendations conveyed to the care home and Cardiology. Subjective Subjective Date/Time Seen: 10/28/20 08:56 Patient returns for follow-up to [facility] outpatient wound clinic from [facility]. Wound VAC in place. Wound VAC functional upon arrival. S killed nursing with complaints of increased redness left leg. Apparently she had been evaluated by their life insurance specialist. no fever or chills. patient states pain well controlled Exam Const: General: healthy appearing; No in distress or confusion Terry entation/consciousness: patient oriented x3 and No confusion HENMT: Head: normal to inspection, normocephalic and atraumatic Eyes: Conjunctivae: conjunctivae normal Sclera: sclerae normal Resp: Effort & Inspection: normal respiratory effort and no audible wheezes Neuro: General: patient oriented x3 and No confusion Extrem: Left lower extremity: lower leg Details: other (Wound VAC dressing in place. removed for exam. Moderate swelling and erythema lower leg. erythema partially resolved with elevation. Knee exam benign.) Other: Moderate bilateral leg edema from the pelvis to the amputation stumps. 2+ pitting. Sanguinous drainage from left amputation wound. No purulence. 30% slough. 3 cm depth to the wound which probes to bone Psych: Affect: normal affect
[2020-10-28 09:55] VITALS: BMI 48.9
--- NOTE | 2020-12-02 15:15 | PCWOUND ---
WOCN NOTE Patient did not show up for appointment. called [facility], they stated they do not think the patient it there any more but can not tell me for sure. Left message at phone number we have for son.
--- NOTE | 2020-12-16 08:44 | PM.PNORT ---
Progress Note: A&P Assessment and Plan (1) Wound dehiscence: Code(s): T81.30XA - Disruption of wound, unspecified, initial encounter Status: Acute Assessment and Plan: Eleven weeks left below-knee amputation. Overall wound healing improved but wound surface was slough requiring debridement today risks and benefits discussed with patient. She verbalized understanding like to proceed. Debridement performed Without difficulty. Shira and and a form applied today. Continue with Santyl daily dressing changes at senior care. Follow-up 4 weeks. We will contact [employer] to start stump shrinkage. (2) Pressure ulcer of BKA stump: Code(s): T87.89 - Other complications of amputation stump; L89.899 - Pressure ulcer of other site, unspecified stage Status: Acute (3) S/P BKA (below knee amputation): Qualifiers: Laterality: left Qualified Code(s): Z89.512 - Acquired absence of left leg below knee Code(s): Z89.519 - Acquired absence of unspecified leg below knee Status: Acute (4) Uncontrolled diabetes mellitus: Qualifiers: Diabetes mellitus type: type 2 Glycemic state: with hyperglycemia Qualified Code(s): E11.65 - Type 2 diabetes mellitus with hyperglycemia Code(s): E11.65 - Type 2 diabetes mellitus with hyperglycemia Status: Acute Subjective Subjective Date/Time Seen: 12/16/20 08:44 Post Op day: 11 weeks Principal diagnosis: left below-knee amputation Interval history: 11 weeks status post left below-knee amputation complicated postoperative wound dehiscence. Has undergone several debridements of the stump. Last debridement was 3 weeks ago she was she is the nursing this. She routine wound care. They are using Santyl. She has Not noted any interim complaints. Exam Const: General: healthy appearing; No in distress or confusion Orientation/consciousness: patient oriented x3 and No confusion HENMT: Head: normal to inspection, normocephalic and atraumatic Eyes: Conjunctivae: conjunctivae normal Sclera: sclerae normal Resp: Effort & Inspection: normal respiratory effort and no audible wheezes Neuro: General: patient oriented x3 and No confusion Extrem: Left lower extremity: lower leg Details: other (Wound VAC dressing in place. removed for exam. Moderate swelling and erythema lower leg. erythema partially resolved with elevation. Knee exam benign.) Other: Left below-knee amputation stump with improved healing and consolidation. Wound measures 3.6 x 4 cm with 0.4 cm depth. 40% granulation with 60% slough requiring debridement. Minimal swelling. Good range of motion of the knee. Psych: Affect: normal affect
--- NOTE | 2020-12-16 08:48 | P.OP_ITS ---
Procedure Note - Detailed Date of procedure: 12/16/20 Pre-op diagnosis: left BKA wound, wound vac dressing changes Post-op diagnosis: same Procedure performed: Excisional debridement skin and subcutaneous tissue, muscle left below-knee amputation stump Description of procedure: informed consent given. Left stump prepped with alcohol prep solution. Correct site identified. Ring curette used to sharply debride and excise devitalized tissue and slough from the left amputation stump skin, subcutaneous tissue, muscle. Devitalized tissue removed. Good viable tissue left in place. Good bleeding noted. Hemostasis controlled with pres sure. Sterile dressing applied. Wound measured 3.4 x 4 cm. Anesthesia: none Surgeon: Alexy Huerta MD Estimated blood loss (mL): 1 Drains: No Packing: Yes Pathology: none sent Complications: None Condition: stable Disposition: other ( [facility])
--- NOTE | 2021-01-12 07:43 | PCWOUND ---
WOCN NOTE appointment cancelled for Saturday01/13/21. Patient is currently admitted to [facility]. Wound Care did assess left BKA wound. assessment and note are under inpatient visit number. Instructions for wound care and follow up documented in discharge papers.
== END 2021-01-26 23:59 | disposition home or self-care (01) ==
LOC: ANHWOC 07:28
PROVIDERS: PCP Family Medicine; Referring Provider Orthopaedic Surgery; Visit Provider Nurse Practitioner Family
DX: Z48.01 Encounter for change or removal of surgical wound dressing (principal); T81.31XD Disruption of external operation (surgical) wound, not elsewhere classified, subsequent encounter; Z47.1 Aftercare following joint replacement surgery; Z89.512 Acquired absence of left leg below knee
CPT/HCPCS: 11042; 97606

== ENCOUNTER 2021-01-07 20:53 | Inpatient (IN) | payer OTHER, SELFPAY ==
[2021-01-07] VITALS (9 sets, daily range): BP systolic 139–183; BP diastolic 57–92; PULSE 81–101; RESP 20–36; TEMP 35.8–36.8; O2SAT 94–100; BMI 40.4
--- NOTE | ~2021-01-07 | XR_ITS ---
XR chest 1V portable DATE: 01/07/2021 21:39 INDICATION: Shortness of breath. History of CHF, coronary disease, diabetes TECHNIQUE: Portable upright AP chest on 01/07/2021 at 2141 hours COMPARISON: 11/21/2020 portable AP chest at 0839 hours FINDINGS: Status post sternotomy. Cardiomegaly. Pulmonary vascular congestion. Diffuse bilateral pulmonary infiltrates. Mild right and minimal left pleural effusion. There appears to be mild prominence of the minor fissure fluid within the fissure. Aortic arch calcification. Diffuse osteopenia. IMPRESSION infiltrates are substantially increased and the pleural effusions new or increased since 11/21/2020 Congestive heart failure and pulmonary edema, with mild right and minimal left pleural effusions Pneumonia is not excluded. Reviewed, dictated and finalized at location A. IMPRESSION infiltrates are substantially increased and the pleural effusions ne w or increased since 11/21/2020 Congestive heart failure and pulmonary edema, with mild right and minimal left pleural effusions Pneumonia is not excluded.
--- NOTE | ~2021-01-07 | XR_ITS ---
XR chest 1V portable 01/10/2021 05:32 Indication: Shortness of breath Procedure: AP portable chest Comparison: Comparison to multiple prior studies sequentially, with oldest reviewed study dated 11/19. Findings: Status post median sternotomy for CABG. Heart size normal. Mild interstitial edema. No sign ificant pleural effusion or pneumothorax. No acute osseous abnormality. Impression: 1: Persistent mild interstitial edema. Reviewed, dictated and finalized at location A. Impression: 1: Persistent mild interstitial edema.
--- NOTE | 2021-01-07 20:58 | ECG_ITS ---
Measurements Intervals [place] Rate: 91 P: 57 [place]: 212 QRS: -22 QRSD: 185 T: 128 QT: 412 QTc: 509 Interpretive Statements SINUS RHYTHM WITH FIRST DEGREE AV BLOCK LEFT BUNDLE BRANCH BLOCK BASELINE ARTIFACT- I, II, AVR, AVL, AVF, V1-V6 ABNORMAL ECG Electronically Signed On 01-08-2021 7:32:08 CDT by Stephen Peralta D.O.
--- NOTE | 2021-01-07 21:03 | ED.SOB ---
HPI - SOB/Dyspnea General Chief Complaint: Shortness of Breath/Dyspnea Stated Complaint: sob, copd Time Seen by Provider: 01/07/21 20:59 Source: RN notes reviewed History of Present Illness HPI Narrative: Patient presents emergency department [facility] via EMS for shortness of breath. He states symptoms began approximately 5:00 this evening stated feeling short of breath patient has a history of COPD and CHF chronically on 3 L nasal cannula. States he did take a breathing treatment around five minimal relief. She denies any fever chills chest pain or any other symptoms denies any recent illness patient is a poor historian Related Data Home Medications Medication Instructions Recorded Confirmed Lantus Solostar U-100 Insulin 30 unit SUBCUT Q12H 09/23/20 11/19/20 atorvastatin 40 mg PO HS 10/15/20 11/19/20 amiodarone 200 mg PO DAILY 10/28/20 11/19/20 carvedilol 3.125 mg PO BID 10/28/20 11/19/20 furosemide [Lasix] 40 mg PO DAILY 10/28/20 11/19/20 polysaccharide iron complex 150 mg PO DAILY 10/28/20 11/19/20 [Ferrex 150] Advair HFA 2 puff INHALATION BID 11/19/20 11/19/20 acetaminophen 500 mg PO Q6H PRN 11/19/20 11/19/20 insulin lispro [Humalog KwikPen 6 unit SUBCUT TIDWMEAL 11/19/20 11/19/20 Insulin] insulin lispro [Humalog KwikPen See Rx Instructions .ROUTE .COMPLEX 11/19/20 11/19/20 Insulin] ipratropium-albuterol 3 ml INHALATION Q6H PRN 11/19/20 11/19/20 potassium chloride 20 meq PO DAILY 11/19/20 11/19/20 vancomycin 125 mg PO Q6H 11/19/20 11/19/20 Allergies Allergy/AdvReac Type Severity Reaction Status Date / Time No Known Allergies Allergy Verified 01/07/21 21:49 Review of Systems Review of Systems: Narrative: Gen.: Denies fevers or chills ENT: Denies congestion Respiratory: See HPI CV: Denies chest pain or palpitations GI: Denies abdominal pain nausea, emesis or diarrhea Musculoskeletal: Denies back pain or muscle pain Neuro: Denies numbness, tingling, weakness or focal weakness Skin: Denies rash Except as documented, all other systems reviewed and negative [facility] Past Medical History Medical History Absent pedal pulses Anemia CAD (coronary artery disease) CHF (congestive heart failure) Depression Diabetes mellitus Diabetes type 2, controlled Diabetic foot ulcer High cholesterol HTN (hypertension) Hypertension Hypothyroidism Infected stasis ulcer of left lower extremity LBBB (left bundle branch block) Lower extremity cellulitis Neuropathy NSTEMI (non-ST elevated myocardial infarction) Pt denies MS Osteomyelitis Osteomyelitis of left foot PAD (peripheral artery disease) Paroxysmal atrial fibrillation Peripheral arterial occlusive disease Postoperative wound dehiscence Uncontrolled diabetes mellitus Wound of foot Surgical History Surgical History Below-knee amputation of left lower extremity History of right below knee 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tation) Family History Family History Sibling Family history of cardiovascular disease Diabetes mellitus Family history of arthritis Father History of heart attack Heart attack Mother Skin cancer Sibling Diabetes mellitus Other Hypertension Social History Social History Social History: , was living w/ two sons prior to her recent BKA. Smoking packs per day: 0.5 Smoking cigarettes per day: 10.0 Years smoked: 15 Smoking pack-years: 7.50 Smoking status: Former smoker Tobacco type: cigarettes Smoking end date: 08/21/15 Alcohol intake: never Substance use: never Substance use type: does not use Additional living arrangements comments: Two sons
[2021-01-07] MEDS: ALBUTEROL SULFATE NEB 2.5 MG/0.5 ML INH 5 MG INHALATION (21:08)
[2021-01-07] MEDS: IPRATROPIUM BR 0.02% INH SOLN 0.5 MG/2.5 ML VIAL INHALATION (21:08)
[2021-01-07 21:19] LABS: Alveolar/Arterial O2 Gradient 82.1 mmHg; Base Excess ABG 0.3 mEq/l (+/-2.0); Fractional Inspired Oxygen 32 %; HCO3 ABG 27.3 mEq/l (22.0-26.0); Oxygen Content ABG 15.9 %vol (16.0-22.0); Oxygen Saturation ABG 95.1 % (95.0-100.0); Oxyhemoglobin 93.8 % THb (90.0-100.0); PCO2 ABG 54.5 mmHg (35.0-45.0); PO2 ABG 82.3 mmHg (80.0-100.0); PO2 FiO2 Ratio Arterial Blood 2.57 %; pH ABG 7.317 (7.350-7.450)
[2021-01-07 21:20] LABS: Device NASAL CANNULA; Modified Allen's Test Pass; Site Drawn RIGHT RADIAL
--- NOTE | 2021-01-07 21:21 | PC.NURSE ---
Pt's son Kurtis called to leave phone number [phone]
[2021-01-07] MEDS: methylPREDNISolone SOD SUCC 125 MG VIAL IV PUSH (21:33)
[2021-01-07] MEDS: FUROSEMIDE INJ 40 MG/4 ML VIAL IV PUSH (22:07)
[2021-01-07 22:16] LABS: Basophils Absolute Auto 0.3 K/mm3 (0.0-0.1); Basophils Percent Auto 1.8 % (0.2-1.2); Eosinophils Absolute Auto 0.1 K/mm3 (0-0.3); Eosinophils Percent Auto 0.6 % (0-4.4); Hematocrit 41.2 % (37.0-47.0); Hemoglobin 11.7 g/dL (12.0-15.0); Immature Granulocyte Absolute 0.71 K/mm3 (0.00-0.031); Immature Granulocyte Percent A 4.4 % (0-0.5); Lymphocytes Absolute Auto 2.49 K/mm3 (0.9-3.2); Lymphocytes Percent Auto 15.4 % (18.3-44.2); Mean Corpuscular HGB Conc 28.4 g/dl (32-36); Mean Corpuscular Hemoglobin 27.1 pg (26-34); Mean Corpuscular Volume 95.4 fl (80-100); Mean Platelet Volume 10.8 fl (7.4-10.4); Monocytes Absolute Auto 0.9 K/mm3 (0.1-0.6); Monocytes Percent Auto 5.8 % (2.6-8.5); Neutrophils Absolute Auto 11.6 K/mm3 (1.3-6.7); Platelet Count Result 285 k/mm3 (150-375); Red Blood Count 4.32 M/mm3 (4.2-5.4); Red Cell Distribution Width 16.9 % (11.5-14.5); White Blood Count 16.1 K/mm3 (4.5-10.0)
[2021-01-07 22:26] LABS: Partial Thromboplastin Time 20.7 SECONDS (22.3-36.8); Prothrombin Time 13.6 Seconds (11.1-14.7)
[2021-01-07 22:28] LABS: Alanine Aminotransferase 28 U/L (4-35); Albumin Level 4.1 g/dL (3.5-5.1); Alkaline Phosphatase 233 U/L (38-126); Anion Gap 7 mmol/L (8-16); Aspartate Amino Transferase 38 U/L (14-36); Bilirubin,Total 0.4 mg/dL (0.2-1.3); Blood Urea Nitrogen 28 mg/dL (7-17); Carbon Dioxide 27 mmol/L (22-30); Chloride 106 mmol/L (98-107); Estimated Glomerular Filt Rate 48; Glucose 215 mg/dL (65-105); Lipase 146 U/L (23-300); Potassium 4.9 mmol/L (3.4-5.0); Sodium 140 mmol/L (137-145)
[2021-01-07 22:36] LABS: NT Pro B Type Natriuretic Pept 3960 PG/ML (5-100)
[2021-01-07 23:12] LABS: Lactic Acid Reflex 1.2 mmol/L (0.7-2.1)
--- NOTE | 2021-01-07 23:37 | PC.NURSE ---
This patient, Owen Escobar, was admitted to 3 Med Surg Room 306-01 @ 23:35. Patient/family oriented to hospital policies and general routines including ID bracelet, bed and alarms, visiting hours, pain management, procedures, bathroom and other care routines, personal items, smoking policy, room service/diet, and visiting hours. Information on how to activate the Rapid Response Team has been discussed. Patient/Family are encouraged to report perceived risks to care and to ask questions if they do not understand what they are told or what they should do.
[2021-01-08] VITALS (16 sets, daily range): BP systolic 118–141; BP diastolic 50–58; PULSE 80–90; RESP 18–24; TEMP 35.8–36.4; O2SAT 94–100
--- NOTE | 2021-01-08 02:01 | PC.NURSE ---
Spoke to patients son, Kurtis, he called to check on his mother and was very worried and anxious. He mentioned visitation and I let him know that until his mom's covid results come back, and are negative, he will be unable to visit her. I also informed the patient of this so there is no confusion. -NADEEM MOLINA
[2021-01-08] MEDS: ALBUTEROL SULFATE NEB 2.5 MG/0.5 ML INH 5 MG INHALATION ×3 (02:32→13:37)
[2021-01-08] MEDS: IPRATROPIUM BR 0.02% INH SOLN 0.5 MG/2.5 ML VIAL INHALATION ×3 (02:33→13:38)
--- NOTE | 2021-01-08 04:19 | PM.IMHP ---
H&P: HPI History of Present Illness Date/Time: 01/08/21 04:19 Chief Complaint: Shortness of breath Narrative: 80-year-old female past medical history coronary artery disease, hypertension, peripheral vascular disease, diabetes mellitus, COPD, chronic hypoxic respiratory failure and CHF who presented to the ER from long term due to sudden onset of shortness of breath. The patient reported that the night before she had a brief episode of shortness of breath that lasted about an hour and was improved with nebulizer treatment. Then last night right before dinner she began having shortness of breath. She felt so bad that she could only ate a few bites of her meal before she had to stop. She reported tightness and discomfort in her lower chest due to her difficulty breathing. She denied actual chest pain or palpitations. She received a nebulizer treatment which did not help like it did the night before. When her symptoms persisted for 3 hours she requested to come to the ER. She has been afebrile. She had her usual baseline cough that is unchanged. Her cough is productive of clear sputum which is her baseline. She denies any orthopnea or paroxysmal nocturnal dyspnea. She remains on her chronic home O2. She reports that she usually has a bowel movement every 3rd day and it is hoping that she will have a bowel movement today. She denies any hematochezia or melena. She denies any dysuria or changes in urinary frequency. She had a recent left [id number] amputation in September at was complicated by wound dehiscence but is now healing well. She is following with wound care. She reports that her next wound care appointment is this coming Saturday. Review of Systems Review of Systems: Narrative: 12 systems were reviewed with pertinent positives and negatives per HPI. Except as documented in the HPI, all other systems were reviewed and are negative. [facility] Past Medical History Medical History (Updated 01/08/21 @ 08:17 by Ksenia Pulido DO) Anemia C. difficile colitis CAD (coronary artery disease) CHF (congestive heart failure) Echocardiogram August 2020: EF of 55-60%, technically difficult to study, diastolic function abnormal, right ventricular systolic function mildly reduced, [id number] tricuspid valve regurgitation, moderate pulmonary hypertension Depression Diabetes mellitus High cholesterol Hypertension Hypothyroidism LBBB (left bundle branch block) Moderate pulmonary hypertension Neuropathy NSTEMI (non-ST elevated myocardial infarction) (09/23/20) Osteomyelitis of left foot Paroxysmal atrial fibrillation Peripheral arterial occlusive disease Right-sided heart failure Noted on echocardiogram August 2020 with mildly reduced right ventricular systolic function Surgical History Surgical History (Updated 01/08/21 @ 08:17 by Ksenia Pulido DO) 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 Postop complication of wound dehiscence with wound VAC placement November 2020 History of right below knee amputation (~08/2015) History of transmetatarsal amputation of left foot transmetatarsal amputations at the necks of the / Hx of CABG (~2004) 3 vessel CABG Status post cataract extraction of both eyes with insertion of intraocular lens Family History Family History Sibling Family history of cardiovascular disease Diabetes mellitus Family history of arthritis Father History of heart attack Heart attack Mother Skin cancer Sibling Diabetes mellitus Other Hypertension Social History Social History (Updated 01/08/21 @ 08:02 by Ksenia Pulido DO) Social History: She is . She was was living with her two sons prior to her recent BKA in September 2020. She is now residing at [facility]. Prior to her left BKA she used to eat ambulate with a
[2021-01-08 04:33] LABS: Add Urine Microscopic? YES; Appearance Urine Clear (Clear); Bacteria Urine Trace /hpf; Bilirubin Urine Negative (Negative); Blood Urine Negative (Negative); Color Urine Straw (Yellow); Glucose Urine UA 2+ mg/dL (Negative); Ketones Urine Negative (Negative); Leukocyte Esterase Ur Negative LEU/UL (Negative); Mucus Urine Rare /lpf; Nitrate Urine Negative (Negative); Protein Urine Negative (Negative); RBC Urine 0-2 /hpf (0-2); Squamous Epithelial Cell Urine Rare /hpf (Few); Urobilinogen Urine Negative mg/dL (<2.0); WBC Urine 0-3 /hpf
[2021-01-08] MEDS: methylPREDNISolone SOD SUCC 125 MG VIAL 60 MG IV PUSH ×3 (05:42→21:51)
[2021-01-08 06:38] LABS: Hematocrit 36.8 % (37.0-47.0); Hemoglobin 10.7 g/dL (12.0-15.0); Mean Corpuscular HGB Conc 29.1 g/dl (32-36); Mean Corpuscular Volume 92.9 fl (80-100); Mean Platelet Volume 10.7 fl (7.4-10.4); Platelet Count Result 342 k/mm3 (150-375); Red Blood Count 3.96 M/mm3 (4.2-5.4); Red Cell Distribution Width 16.6 % (11.5-14.5); White Blood Count 15.7 K/mm3 (4.5-10.0)
[2021-01-08 06:50] LABS: Anion Gap 6 mmol/L (8-16); Blood Urea Nitrogen 27 mg/dL (7-17); Calcium 8.8 mg/dL (8.4-10.2); Carbon Dioxide 32 mmol/L (22-30); Chloride 101 mmol/L (98-107); Estimated CRCL calculation 40 ml/min; Estimated Glomerular Filt Rate 48; Glucose 355 mg/dL (65-105); Potassium 4.9 mmol/L (3.4-5.0); Sodium 139 mmol/L (137-145)
[2021-01-08 07:22] LABS: Band Neutrophils Percent 2 % (0-6); Basophils Absolute Manual 0.15 K/mm3 (0.0-0.1); Basophils Percent Manual 1 % (0-1); Lymphocytes Absolute Manual 0.47 K/mm3 (1.1-4.5); Neutrophils Absolute Manual 15.07 K/mm3 (1.7-7.2); Neutrophils Percent Manual 94 % (46-73); Nucleated Red Blood Cells 1 %; Platelet Estimate Adequate (Adequate); Total Cells Counted 100
[2021-01-08 07:23] LABS: Anisocytosis 1+ (NORMAL); Ovalocytes 1+ (NORMAL)
[2021-01-08] MEDS: FLUTICASONE/SALMETEROL 115-21 MCG INHALER 1 PUFF 2 PUFF INHALATION (07:57)
[2021-01-08 08:21] LABS: Glucose Point of Care 325 (65-105)
[2021-01-08] MEDS: INSULIN ASPART (*BKC) 100 UNITS/ML 7 UNITS SUB-Q ×3 (08:33→17:15)
[2021-01-08] MEDS: INSULIN ASPART (*BKC) 100 UNITS/ML SUB-Q ×3 (08:33→17:14)
[2021-01-08] MEDS: ACETAMINOPHEN 500 MG TABLET PO ×2 (08:34→18:30)
[2021-01-08] MEDS: POLYSACCHARIDE IRON COMPLEX 150 MG CAPSULE PO (08:35)
[2021-01-08] MEDS: POTASSIUM CHLORIDE 20 MEQ TABLET.ER PO (08:35)
[2021-01-08] MEDS: FUROSEMIDE INJ 40 MG/4 ML VIAL IV PUSH ×2 (08:36→17:15)
[2021-01-08] MEDS: PANTOPRAZOLE 40 MG TABLET PO (08:36)
[2021-01-08] MEDS: carvediloL 3.125 MG TABLET PO ×2 (08:36→21:52)
[2021-01-08] MEDS: ENOXAPARIN 40 MG/0.4 ML SYRINGE SUB-Q (09:54)
[2021-01-08 11:50] LABS: Glucose Point of Care 409 (65-105)
[2021-01-08] MEDS: INSULIN GLARGINE (*BKC) 100 UNITS/ML 20 UNITS SUB-Q ×2 (12:43→21:53)
--- NOTE | 2021-01-08 14:23 | PM.IMPN ---
Progress Note: A&P Assessment and Plan (1) CHF (congestive heart failure): Qualifiers: Heart failure chronicity: acute on chronic Heart failure type: diastolic Qualified Code(s): I50.33 - Acute on chronic diastolic (congestive) heart failure Code(s): I50.9 - Heart failure, unspecified Status: Acute Assessment and Plan: 01/08/21 14:23 patient is 80 year female with with history hypertension PVD, diabetes COPD and chronic hypoxic respiratory failure on home oxygen and CHF, patient presented emergency department with a complaint of shortness of breath there was persisting despite taking neb treatment, patient has a persistent cough, patient denies any orthopnea or proximal nocturnal dyspnea, patient had a chest x-ray in emergency depart it shows patient pulmonary edema, patient's symptoms multifactorial with history of heart failure, COPD is a concern patient may have pneumonia, patient is being diuresed, being treated Solu-Medrol updraft as well as Rocephin and azithromycin possibly community-acquired pneumonia, there is also concern the patient may be positive for COVID being tested an isolated, today patient states feeling much better compared to when she arrived. States not a short of breath, denies any chest pain palpitation fever or chills. Will have a PT OT evaluate the patient and further recommendation to follow (2) Community acquired pneumonia: Qualifiers: Laterality: unspecified laterality Qualified Code(s): J18.9 - Pneumonia, unspecified organism Code(s): J18.9 - Pneumonia, unspecified organism Status: Acute Assessment and Plan: Patient being treated with Rocephin azithromycin will continue to monitor will repeat chest x-ray in 2 days and further recommendation to follow (3) COPD (chronic obstructive pulmonary disease): Qualifiers: COPD type: COPD with acute lower respiratory infection Qualified Code(s): J44.0 - Chronic obstructive pulmonary disease with (acute) lower respiratory infection Code(s): J44.9 - Chronic obstructive pulmonary disease, unspecified Status: Acute Assessment and Plan: Patient is being treated with Solu-Medrol updraft and Pulmicort, will continue to monitor as patient's symptoms improved will taper Solu-Medrol Additional Plan The patient has acute respiratory distress complicating her chronic respiratory failure. Patient is on her home oxygen level. However x-ray demonstrates increased pleural effusions and bilateral pulmonary infiltrates and she has a new white count. Her symptoms are likely multifactorial due to combination of mucoid iron pneumonia causing acute COPD exacerbation and or acute CHF exacerbation. The patient has been started on azithromycin, Rocephin, Lasix, Solu-Medrol and nebulizer treatments. The patient reports significant improvement in her symptoms. The patient does reside at a [place] [facility] facility in subsequently is being tested for COVID 19. The patient is on isolation. Subjective Date/time seen: 01/08/21 14:23 patient is 80 year female with with history hypertension PVD, diabetes COPD and chronic hypoxic respiratory failure on home oxygen and CHF, patient presented emergency department with a complaint of shortness of breath there was persisting despite taking neb treatment, patient has a persistent cough, patient denies any orthopnea or proximal nocturnal dyspnea, patient had a chest x-ray in emergency depart it shows patient pulmonary edema, patient's symptoms multifactorial with history of heart failure, COPD is a concern patient may have pneumonia, patient is being diuresed, being treated Solu-Medrol updraft as well as Rocephin and azithromycin possibly community-acquired pneumonia, there is also concern the patient may be positive for COVID being tested an isolated, today patient states feeling much better compared to when she arrived. States not a short of breath, denies any chest pain palpitation
[2021-01-08 16:46] LABS: Glucose Point of Care 315 (65-105)
[2021-01-08] MEDS: ATORVASTATIN 40 MG TABLET PO (21:52)
[2021-01-08 22:37] LABS: Glucose Point of Care 279 (65-105)
[2021-01-09] VITALS (17 sets, daily range): BP systolic 110–143; BP diastolic 46–64; PULSE 72–100; RESP 16–20; TEMP 36.3–36.9; O2SAT 92–100
[2021-01-09] MEDS: ACETAMINOPHEN 500 MG TABLET PO (00:17)
[2021-01-09] MEDS: ALBUTEROL SULFATE NEB 2.5 MG/0.5 ML INH 5 MG INHALATION ×4 (02:39→18:19)
[2021-01-09] MEDS: IPRATROPIUM BR 0.02% INH SOLN 0.5 MG/2.5 ML VIAL INHALATION ×4 (02:39→18:19)
[2021-01-09] MEDS: methylPREDNISolone SOD SUCC 125 MG VIAL 60 MG IV PUSH ×3 (06:19→22:00)
[2021-01-09 06:29] LABS: Hematocrit 36.8 % (37.0-47.0); Hemoglobin 10.7 g/dL (12.0-15.0); Mean Corpuscular HGB Conc 29.1 g/dl (32-36); Mean Corpuscular Hemoglobin 27.5 pg (26-34); Mean Corpuscular Volume 94.6 fl (80-100); Mean Platelet Volume 11.6 fl (7.4-10.4); Platelet Count Result 239 k/mm3 (150-375); Red Blood Count 3.89 M/mm3 (4.2-5.4); White Blood Count 17.7 K/mm3 (4.5-10.0)
[2021-01-09] MEDS: BUDESONIDE RESPULE NEB 0.5 MG/2 ML AMP INHALATION ×2 (07:52→18:20)
[2021-01-09 08:01] LABS: Anion Gap 6 mmol/L (8-16); Blood Urea Nitrogen 42 mg/dL (7-17); Carbon Dioxide 34 mmol/L (22-30); Chloride 97 mmol/L (98-107); Estimated CRCL calculation 39 ml/min; Estimated Glomerular Filt Rate 48; Glucose 319 mg/dL (65-105); Magnesium 2.1 mg/dL (1.6-2.3); Potassium 4.8 mmol/L (3.4-5.0); Sodium 137 mmol/L (137-145)
[2021-01-09 08:07] LABS: Glucose Point of Care 274 (65-105)
[2021-01-09] MEDS: INSULIN ASPART (*BKC) 100 UNITS/ML 7 UNITS SUB-Q ×3 (08:26→17:34)
[2021-01-09] MEDS: INSULIN ASPART (*BKC) 100 UNITS/ML SUB-Q ×3 (08:26→17:33)
[2021-01-09] MEDS: POTASSIUM CHLORIDE 20 MEQ TABLET.ER PO (08:28)
[2021-01-09] MEDS: POLYSACCHARIDE IRON COMPLEX 150 MG CAPSULE PO (08:28)
[2021-01-09] MEDS: carvediloL 3.125 MG TABLET PO ×2 (08:28→21:22)
[2021-01-09] MEDS: PANTOPRAZOLE 40 MG TABLET PO (08:29)
[2021-01-09] MEDS: FUROSEMIDE INJ 40 MG/4 ML VIAL IV PUSH ×2 (08:29→17:35)
[2021-01-09] MEDS: ENOXAPARIN 40 MG/0.4 ML SYRINGE SUB-Q (08:29)
[2021-01-09 13:22] LABS: SARS-CoV-2 RNA PCR Negative
[2021-01-09] MEDS: BENZONATATE 100 MG CAPSULE 200 MG PO ×2 (14:13→21:22)
[2021-01-09 14:41] LABS: Glucose Point of Care 342 (65-105)
--- NOTE | 2021-01-09 15:20 | PM.IMPN ---
Progress Note: A&P Assessment and Plan (1) CHF (congestive heart failure): Qualifiers: Heart failure chronicity: acute on chronic Heart failure type: diastolic Qualified Code(s): I50.33 - Acute on chronic diastolic (congestive) heart failure Code(s): I50.9 - Heart failure, unspecified Status: Acute Assessment and Plan: 01/09/21 15:20 01/08patient is 80 year female with with history hypertension PVD, diabetes COPD and chronic hypoxic respiratory failure on home oxygen and CHF, patient presented emergency department with a complaint of shortness of breath there was persisting despite taking neb treatment, patient has a persistent cough, patient denies any orthopnea or proximal nocturnal dyspnea, patient had a chest x-ray in emergency depart it shows patient pulmonary edema, patient's symptoms multifactorial with history of heart failure, COPD is a concern patient may have pneumonia, patient is being diuresed, being treated Solu-Medrol updraft as well as Rocephin and azithromycin possibly community-acquired pneumonia, there is also concern the patient may be positive for COVID being tested an isolated, today patient states feeling much better compared to when she arrived. States not a short of breath, denies any chest pain palpitation fever or chills. Will have a PT OT evaluate the patient and further recommendation to follow. 01/09 today patient states feeling much better not a short of breath however see does complaint of persistent lower extremity pain which is chronic for the patient, will start the patient on Tessalon and guaifenesin, COVID test is pending, will continue present management with IV Lasix, Solu-Medrol, updraft and will have PT OT evaluate the patient further recommendation to follow. (2) Community acquired pneumonia: Qualifiers: Laterality: unspecified laterality Qualified Code(s): J18.9 - Pneumonia, unspecified organism Code(s): J18.9 - Pneumonia, unspecified organism Status: Acute Assessment and Plan: Patient being treated with Rocephin azithromycin will continue to monitor will repeat chest x-ray in 2 days and further recommendation to follow (3) COPD (chronic obstructive pulmonary disease): Qualifiers: COPD type: COPD with acute lower respiratory infection Qualified Code(s): J44.0 - Chronic obstructive pulmonary disease with (acute) lower respiratory infection Code(s): J44.9 - Chronic obstructive pulmonary disease, unspecified Status: Acute Assessment and Plan: Patient is being treated with Solu-Medrol updraft and Pulmicort, will continue to monitor as patient's symptoms improved will taper Solu-Medrol Additional Plan The patient has acute respiratory distress complicating her chronic respiratory failure. Patient is on her home oxygen level. However x-ray demonstrates increased pleural effusions and bilateral pulmonary infiltrates and she has a new white count. Her symptoms are likely multifactorial due to combination of mucoid iron pneumonia causing acute COPD exacerbation and or acute CHF exacerbation. The patient has been started on azithromycin, Rocephin, Lasix, Solu-Medrol and nebulizer treatments. The patient reports significant improvement in her symptoms. The patient does reside at a longterm facility in subsequently is being tested for COVID 19. The patient is on isolation. Subjective Date/time seen: 01/09/21 15:20 01/08patient is 80 year female with with history hypertension PVD, diabetes COPD and chronic hypoxic respiratory failure on home oxygen and CHF, patient presented emergency department with a complaint of shortness of breath there was persisting despite taking neb treatment, patient has a persistent cough, patient denies any orthopnea or proximal nocturnal dyspnea, patient had a chest x-ray in emergency depart it shows patient pulmonary edema, patient's symptoms multifactorial with history of heart failure, C
--- NOTE | 2021-01-09 15:24 | PCRCNOTE ---
01/08/211999 nebulizer treatment not given.Window of time for administration has passed. See next scheduled administration.
[2021-01-09 17:05] LABS: Glucose Point of Care 265 (65-105)
[2021-01-09] MEDS: SILVERGEL (ELTA) 45 ML 1 APPLIC TOPICAL (17:32)
[2021-01-09] MEDS: ATORVASTATIN 40 MG TABLET PO (21:21)
[2021-01-09] MEDS: guaiFENesin 12 HR 600 MG TABCR PO (21:22)
[2021-01-09] MEDS: INSULIN GLARGINE (*BKC) 100 UNITS/ML 20 UNITS SUB-Q (21:28)
[2021-01-09 21:37] LABS: Glucose Point of Care 333 (65-105)
[2021-01-10] VITALS (17 sets, daily range): BP systolic 121–146; BP diastolic 50–66; PULSE 71–91; RESP 16–20; TEMP 36.2–36.7; O2SAT 81–98
[2021-01-10] MEDS: IPRATROPIUM BR 0.02% INH SOLN 0.5 MG/2.5 ML VIAL INHALATION ×4 (02:33→18:04)
[2021-01-10] MEDS: ALBUTEROL SULFATE NEB 2.5 MG/0.5 ML INH 5 MG INHALATION ×4 (02:33→18:04)
[2021-01-10] MEDS: methylPREDNISolone SOD SUCC 125 MG VIAL 60 MG IV PUSH (05:51)
[2021-01-10] MEDS: BENZONATATE 100 MG CAPSULE 200 MG PO ×3 (05:52→20:34)
[2021-01-10 06:18] LABS: Hematocrit 34.9 % (37.0-47.0); Hemoglobin 10.5 g/dL (12.0-15.0); Mean Corpuscular HGB Conc 30.1 g/dl (32-36); Mean Corpuscular Hemoglobin 27.2 pg (26-34); Mean Corpuscular Volume 90.4 fl (80-100); Mean Platelet Volume 10.9 fl (7.4-10.4); Platelet Count Result 343 k/mm3 (150-375); Red Blood Count 3.86 M/mm3 (4.2-5.4); Red Cell Distribution Width 16.8 % (11.5-14.5); White Blood Count 16.6 K/mm3 (4.5-10.0)
[2021-01-10 06:26] LABS: Anion Gap 5 mmol/L (8-16); Blood Urea Nitrogen 44 mg/dL (7-17); Calcium 8.7 mg/dL (8.4-10.2); Carbon Dioxide 35 mmol/L (22-30); Chloride 95 mmol/L (98-107); Estimated CRCL calculation 39 ml/min; Estimated Glomerular Filt Rate 48; Glucose 270 mg/dL (65-105); Magnesium 2.2 mg/dL (1.6-2.3); Potassium 4.4 mmol/L (3.4-5.0); Sodium 135 mmol/L (137-145)
[2021-01-10 08:03] LABS: Glucose Point of Care 248 (65-105)
[2021-01-10] MEDS: BUDESONIDE RESPULE NEB 0.5 MG/2 ML AMP INHALATION (09:11)
[2021-01-10] MEDS: INSULIN ASPART (*BKC) 100 UNITS/ML 7 UNITS SUB-Q ×3 (10:15→17:34)
[2021-01-10] MEDS: INSULIN ASPART (*BKC) 100 UNITS/ML SUB-Q ×3 (10:16→17:35)
[2021-01-10] MEDS: ENOXAPARIN 40 MG/0.4 ML SYRINGE SUB-Q (10:26)
[2021-01-10] MEDS: POLYSACCHARIDE IRON COMPLEX 150 MG CAPSULE PO (10:27)
[2021-01-10] MEDS: guaiFENesin 12 HR 600 MG TABCR PO ×2 (10:27→20:33)
[2021-01-10] MEDS: POTASSIUM CHLORIDE 20 MEQ TABLET.ER PO (10:28)
[2021-01-10] MEDS: carvediloL 3.125 MG TABLET PO ×2 (10:28→20:35)
[2021-01-10] MEDS: FUROSEMIDE INJ 40 MG/4 ML VIAL IV PUSH ×2 (10:28→16:03)
[2021-01-10] MEDS: PANTOPRAZOLE 40 MG TABLET PO (10:29)
[2021-01-10] MEDS: SILVERGEL (ELTA) 45 ML 1 APPLIC TOPICAL (11:35)
[2021-01-10] MEDS: INSULIN GLARGINE (*BKC) 100 UNITS/ML 20 UNITS SUB-Q ×2 (12:03→20:35)
[2021-01-10] MEDS: traMADol/ACETAMINOPHEN (*CRX) (ULTRACET) 37.5/325 MG TABLET 1 TAB PO ×3 (12:12→23:39)
--- NOTE | 2021-01-10 14:32 | PM.IMPN ---
Progress Note: A&P Assessment and Plan (1) CHF (congestive heart failure): Qualifiers: Heart failure chronicity: acute on chronic Heart failure type: diastolic Qualified Code(s): I50.33 - Acute on chronic diastolic (congestive) heart failure Code(s): I50.9 - Heart failure, unspecified Status: Acute Assessment and Plan: 01/10/21 14:32 01/08patient is 80 year female with with history hypertension PVD, diabetes COPD and chronic hypoxic respiratory failure on home oxygen and CHF, patient presented emergency department with a complaint of shortness of breath there was persisting despite taking neb treatment, patient has a persistent cough, patient denies any orthopnea or proximal nocturnal dyspnea, patient had a chest x-ray in emergency depart it shows patient pulmonary edema, patient's symptoms multifactorial with history of heart failure, COPD is a concern patient may have pneumonia, patient is being diuresed, being treated Solu-Medrol updraft as well as Rocephin and azithromycin possibly community-acquired pneumonia, there is also concern the patient may be positive for COVID being tested an isolated, today patient states feeling much better compared to when she arrived. States not a short of breath, denies any chest pain palpitation fever or chills. Will have a PT OT evaluate the patient and further recommendation to follow. 01/09 today patient states feeling much better not a short of breath however see does complaint of persistent lower extremity pain which is chronic for the patient, will start the patient on Tessalon and guaifenesin, COVID test is pending, will continue present management with IV Lasix, Solu-Medrol, updraft and will have PT OT evaluate the patient further recommendation to follow. 01/10 Patient COVID is negative, patient stats feeling much better compare to when she arrived, patient is being diuresed with IV laxis 40mg BID and repeat chest x-ray showed persistent mild pulmonary edema will continue present management, will taper solumedrol to prednisone 50mg daily starting tomorrow, and continue updraft, will stop abx most likely patient does not have pneumonia, will have PT/OT evaluate the patient and will monitor. (2) Community acquired pneumonia: Qualifiers: Laterality: unspecified laterality Qualified Code(s): J18.9 - Pneumonia, unspecified organism Code(s): J18.9 - Pneumonia, unspecified organism Status: Acute Assessment and Plan: Patient being treated with Rocephin azithromycin will continue to monitor will repeat chest x-ray in 2 days and further recommendation to follow (3) COPD (chronic obstructive pulmonary disease): Qualifiers: COPD type: COPD with acute lower respiratory infection Qualified Code(s): J44.0 - Chronic obstructive pulmonary disease with (acute) lower respiratory infection Code(s): J44.9 - Chronic obstructive pulmonary disease, unspecified Status: Acute Assessment and Plan: Patient is being treated with Solu-Medrol updraft and Pulmicort, will continue to monitor as patient's symptoms improved will taper Solu-Medrol Additional Plan The patient has acute respiratory distress complicating her chronic respiratory failure. Patient is on her home oxygen level. However x-ray demonstrates increased pleural effusions and bilateral pulmonary infiltrates and she has a new white count. Her symptoms are likely multifactorial due to combination of mucoid iron pneumonia causing acute COPD exacerbation and or acute CHF exacerbation. The patient has been started on azithromycin, Rocephin, Lasix, Solu-Medrol and nebulizer treatments. The patient reports significant improvement in her symptoms. The patient does reside at a long term facility in subsequently is being tested for COVID 19. The patient is on isolation. Subjective Date/time seen: 01/10/21 14:32 01/08patient is 80 year female with with history hypertension NICOLE d
[2021-01-10 16:53] LABS: Glucose Point of Care 406 (65-105)
[2021-01-10 16:53] LABS: Glucose Point of Care 302 (65-105)
[2021-01-10 18:08] LABS: SARS-CoV-2 RNA PCR Negative
[2021-01-10] MEDS: ATORVASTATIN 40 MG TABLET PO (20:34)
[2021-01-10 20:48] LABS: Glucose Point of Care 285 (65-105)
[2021-01-10] MEDS: polyethylene glycoL 3350 17 GM POWD.PACK PO (22:00)
[2021-01-11] VITALS (17 sets, daily range): BP systolic 100–134; BP diastolic 40–72; PULSE 65–471; RESP 16–20; TEMP 36.2–36.7; O2SAT 88–96
[2021-01-11] MEDS: ALBUTEROL SULFATE NEB 2.5 MG/0.5 ML INH 5 MG INHALATION ×4 (01:31→20:04)
[2021-01-11] MEDS: IPRATROPIUM BR 0.02% INH SOLN 0.5 MG/2.5 ML VIAL INHALATION ×4 (01:31→20:04)
[2021-01-11] MEDS: BENZONATATE 100 MG CAPSULE 200 MG PO ×3 (05:48→21:37)
[2021-01-11 06:35] LABS: Blood Urea Nitrogen 50 mg/dL (7-17); Calcium 8.7 mg/dL (8.4-10.2); Carbon Dioxide > 40 mmol/L (22-30); Chloride 95 mmol/L (98-107); Estimated CRCL calculation 39 ml/min; Estimated Glomerular Filt Rate 48; Glucose 102 mg/dL (65-105); Magnesium 2.2 mg/dL (1.6-2.3); Potassium 3.9 mmol/L (3.4-5.0); Sodium 137 mmol/L (137-145)
[2021-01-11 06:47] LABS: Hematocrit 35.8 % (37.0-47.0); Hemoglobin 10.9 g/dL (12.0-15.0); Mean Corpuscular HGB Conc 30.4 g/dl (32-36); Mean Corpuscular Hemoglobin 27.4 pg (26-34); Mean Corpuscular Volume 89.9 fl (80-100); Mean Platelet Volume 10.3 fl (7.4-10.4); Platelet Count Result 317 k/mm3 (150-375); Red Blood Count 3.98 M/mm3 (4.2-5.4); Red Cell Distribution Width 16.7 % (11.5-14.5)
[2021-01-11] MEDS: BUDESONIDE RESPULE NEB 0.5 MG/2 ML AMP INHALATION ×2 (08:01→20:04)
[2021-01-11 08:23] LABS: Glucose Point of Care 110 (65-105)
[2021-01-11] MEDS: carvediloL 3.125 MG TABLET PO (08:48)
[2021-01-11] MEDS: POLYSACCHARIDE IRON COMPLEX 150 MG CAPSULE PO (08:49)
[2021-01-11] MEDS: PANTOPRAZOLE 40 MG TABLET PO (08:49)
[2021-01-11] MEDS: guaiFENesin 12 HR 600 MG TABCR PO ×2 (08:49→21:37)
[2021-01-11] MEDS: ENOXAPARIN 40 MG/0.4 ML SYRINGE SUB-Q (08:49)
[2021-01-11] MEDS: POTASSIUM CHLORIDE 20 MEQ TABLET.ER PO (08:50)
[2021-01-11] MEDS: SILVERGEL (ELTA) 45 ML 1 APPLIC TOPICAL (08:50)
[2021-01-11] MEDS: FUROSEMIDE INJ 40 MG/4 ML VIAL IV PUSH (08:50)
[2021-01-11] MEDS: INSULIN GLARGINE (*BKC) 100 UNITS/ML 20 UNITS SUB-Q ×2 (09:44→21:40)
[2021-01-11] MEDS: INSULIN ASPART (*BKC) 100 UNITS/ML 7 UNITS SUB-Q ×3 (09:45→17:25)
[2021-01-11] MEDS: acetaZOLAMIDE TAB 250 MG TABLET PO (09:46)
[2021-01-11] MEDS: predniSONE 40 MG, predniSONE 10 MG 50 MG PO (09:47)
[2021-01-11] MEDS: traMADol/ACETAMINOPHEN (*CRX) (ULTRACET) 37.5/325 MG TABLET 1 TAB PO ×2 (09:52→20:16)
[2021-01-11 12:16] LABS: Glucose Point of Care 115 (65-105)
--- NOTE | 2021-01-11 13:11 | PM.IMPN ---
Progress Note: A&P Assessment and Plan (1) CHF (congestive heart failure): Qualifiers: Heart failure chronicity: acute on chronic Heart failure type: diastolic Qualified Code(s): I50.33 - Acute on chronic diastolic (congestive) heart failure Code(s): I50.9 - Heart failure, unspecified Status: Acute Assessment and Plan: 01/11/21 13:11 01/08patient is 80 year female with with history hypertension PVD, diabetes COPD and chronic hypoxic respiratory failure on home oxygen and CHF, patient presented emergency department with a complaint of shortness of breath there was persisting despite taking neb treatment, patient has a persistent cough, patient denies any orthopnea or proximal nocturnal dyspnea, patient had a chest x-ray in emergency depart it shows patient pulmonary edema, patient's symptoms multifactorial with history of heart failure, COPD is a concern patient may have pneumonia, patient is being diuresed, being treated Solu-Medrol updraft as well as Rocephin and azithromycin possibly community-acquired pneumonia, there is also concern the patient may be positive for COVID being tested an isolated, today patient states feeling much better compared to when she arrived. States not a short of breath, denies any chest pain palpitation fever or chills. Will have a PT OT evaluate the patient and further recommendation to follow. 01/09 today patient states feeling much better not a short of breath however see does complaint of persistent lower extremity pain which is chronic for the patient, will start the patient on Tessalon and guaifenesin, COVID test is pending, will continue present management with IV Lasix, Solu-Medrol, updraft and will have PT OT evaluate the patient further recommendation to follow. 01/10 Patient COVID is negative, patient stats feeling much better compare to when she arrived, patient is being diuresed with IV laxis 40mg BID and repeat chest x-ray showed persistent mild pulmonary edema will continue present management, will taper solumedrol to prednisone 50mg daily starting tomorrow, and continue updraft, will stop abx most likely patient does not have pneumonia, will have PT/OT evaluate the patient and will monitor. 01/11 patient states feeling much not a short of breath however the chest x-ray done on 01/10 showed persistent mild pulmonary edema patient is being diuresed with the furosemide 40 mg b.i.d. IV however patient creatinine is rising. Will reduce Lasix 40 mg IV q.day from b.i.d. will monitor and reassess tomorrow if remains clinically stable we may discharge the patient tomorrow. patient has b/l amputation and bed and wheel chair bound, human services care specialist is working on discharge planning. (2) Community acquired pneumonia: Qualifiers: Laterality: unspecified laterality Qualified Code(s): J18.9 - Pneumonia, unspecified organism Code(s): J18.9 - Pneumonia, unspecified organism Status: Acute Assessment and Plan: Patient being treated with Rocephin azithromycin will continue to monitor will repeat chest x-ray in 2 days and further recommendation to follow (3) COPD (chronic obstructive pulmonary disease): Qualifiers: COPD type: COPD with acute lower respiratory infection Qualified Code(s): J44.0 - Chronic obstructive pulmonary disease with (acute) lower respiratory infection Code(s): J44.9 - Chronic obstructive pulmonary disease, unspecified Status: Acute Assessment and Plan: Patient is being treated with Solu-Medrol updraft and Pulmicort, will continue to monitor as patient's symptoms improved will taper Solu-Medrol Subjective Date/time seen: 01/11/21 13:11 01/08patient is 80 year female with with history hypertension PVD, diabetes COPD and chronic hypoxic respiratory failure on home oxygen and CHF, patient presented emergency department with a complaint of shortness of breath there was persisting despite taking neb treatment, patient h
[2021-01-11 17:23] LABS: Glucose Point of Care 157 (65-105)
[2021-01-11] MEDS: ATORVASTATIN 40 MG TABLET PO (21:36)
[2021-01-11 23:45] LABS: Glucose Point of Care 311 (65-105)
[2021-01-12] VITALS (7 sets, daily range): BP systolic 126–133; BP diastolic 52–57; PULSE 70–76; RESP 16–20; TEMP 36.3; O2SAT 92–95
[2021-01-12] MEDS: ALBUTEROL SULFATE NEB 2.5 MG/0.5 ML INH 5 MG INHALATION ×2 (02:17→08:05)
[2021-01-12] MEDS: IPRATROPIUM BR 0.02% INH SOLN 0.5 MG/2.5 ML VIAL INHALATION ×2 (02:17→08:06)
[2021-01-12] MEDS: traMADol/ACETAMINOPHEN (*CRX) (ULTRACET) 37.5/325 MG TABLET 1 TAB PO ×2 (05:25→09:37)
[2021-01-12] MEDS: BENZONATATE 100 MG CAPSULE 200 MG PO (05:26)
[2021-01-12 06:26] LABS: Hematocrit 38.8 % (37.0-47.0); Hemoglobin 11.7 g/dL (12.0-15.0); Mean Corpuscular HGB Conc 30.2 g/dl (32-36); Mean Corpuscular Hemoglobin 27.4 pg (26-34); Mean Corpuscular Volume 90.9 fl (80-100); Mean Platelet Volume 10.8 fl (7.4-10.4); Platelet Count Result 325 k/mm3 (150-375); Red Blood Count 4.27 M/mm3 (4.2-5.4); Red Cell Distribution Width 16.6 % (11.5-14.5); White Blood Count 14.2 K/mm3 (4.5-10.0)
[2021-01-12 07:01] LABS: Anion Gap 5 mmol/L (8-16); Blood Urea Nitrogen 45 mg/dL (7-17); Calcium 8.8 mg/dL (8.4-10.2); Carbon Dioxide 35 mmol/L (22-30); Chloride 96 mmol/L (98-107); Estimated CRCL calculation 33 ml/min; Estimated Glomerular Filt Rate 40; Glucose 281 mg/dL (65-105); Magnesium 2.3 mg/dL (1.6-2.3); Potassium 4.1 mmol/L (3.4-5.0); Sodium 136 mmol/L (137-145)
[2021-01-12 07:34] LABS: Glucose Point of Care 220 (65-105)
[2021-01-12] MEDS: INSULIN GLARGINE (*BKC) 100 UNITS/ML 20 UNITS SUB-Q (08:03)
[2021-01-12] MEDS: INSULIN ASPART (*BKC) 100 UNITS/ML 7 UNITS SUB-Q ×2 (08:04→12:08)
[2021-01-12] MEDS: INSULIN ASPART (*BKC) 100 UNITS/ML SUB-Q (08:04)
[2021-01-12] MEDS: BUDESONIDE RESPULE NEB 0.5 MG/2 ML AMP INHALATION (08:06)
[2021-01-12] MEDS: carvediloL 3.125 MG TABLET PO (09:30)
[2021-01-12] MEDS: ENOXAPARIN 40 MG/0.4 ML SYRINGE SUB-Q (09:30)
[2021-01-12] MEDS: POLYSACCHARIDE IRON COMPLEX 150 MG CAPSULE PO (09:31)
[2021-01-12] MEDS: POTASSIUM CHLORIDE 20 MEQ TABLET.ER PO (09:31)
[2021-01-12] MEDS: predniSONE 40 MG, predniSONE 10 MG 50 MG PO (09:32)
[2021-01-12] MEDS: guaiFENesin 12 HR 600 MG TABCR PO (09:32)
[2021-01-12] MEDS: PANTOPRAZOLE 40 MG TABLET PO (09:32)
[2021-01-12] MEDS: FUROSEMIDE INJ 40 MG/4 ML VIAL IV PUSH (09:33)
[2021-01-12] MEDS: SILVERGEL (ELTA) 45 ML 1 APPLIC TOPICAL (09:33)
--- NOTE | 2021-01-12 11:56 | PM.DS ---
DS: Admitting Diagnosis Admitting Diagnosis Admitting Diagnosis: Chief Complaint: Shortness of breath DS: Discharge Diagnosis Discharge Diagnosis (1) CHF (congestive heart failure): Qualifiers: Heart failure chronicity: acute on chronic Heart failure type: diastolic Qualified Code(s): I50.33 - Acute on chronic diastolic (congestive) heart failure Code(s): I50.9 - Heart failure, unspecified Status: Acute Assessment and Plan: 01/11/21 13:11 01/08patient is 80 year female with with history hypertension PVD, diabetes COPD and chronic hypoxic respiratory failure on home oxygen and CHF, patient presented emergency department with a complaint of shortness of breath there was persisting despite taking neb treatment, patient has a persistent cough, patient denies any orthopnea or proximal nocturnal dyspnea, patient had a chest x-ray in emergency depart it shows patient pulmonary edema, patient's symptoms multifactorial with history of heart failure, COPD is a concern patient may have pneumonia, patient is being diuresed, being treated Solu-Medrol updraft as well as Rocephin and azithromycin possibly community-acquired pneumonia, there is also concern the patient may be positive for COVID being tested an isolated, today patient states feeling much better compared to when she arrived. States not a short of breath, denies any chest pain palpitation fever or chills. Will have a PT OT evaluate the patient and further recommendation to follow. 01/09 today patient states feeling much better not a short of breath however see does complaint of persistent lower extremity pain which is chronic for the patient, will start the patient on Tessalon and guaifenesin, COVID test is pending, will continue present management with IV Lasix, Solu-Medrol, updraft and will have PT OT evaluate the patient further recommendation to follow. 01/10 Patient COVID is negative, patient stats feeling much better compare to when she arrived, patient is being diuresed with IV laxis 40mg BID and repeat chest x-ray showed persistent mild pulmonary edema will continue present management, will taper solumedrol to prednisone 50mg daily starting tomorrow, and continue updraft, will stop abx most likely patient does not have pneumonia, will have PT/OT evaluate the patient and will monitor. 01/11 patient states feeling much not a short of breath however the chest x-ray done on 01/10 showed persistent mild pulmonary edema patient is being diuresed with the furosemide 40 mg b.i.d. IV however patient creatinine is rising. Will reduce Lasix 40 mg IV q.day from b.i.d. will monitor and reassess tomorrow if remains clinically stable we may discharge the patient tomorrow. patient has b/l amputation and bed and wheel chair bound, coronary care unit nurse is working on discharge planning. (2) Community acquired pneumonia: Qualifiers: Laterality: unspecified laterality Qualified Code(s): J18.9 - Pneumonia, unspecified organism Code(s): J18.9 - Pneumonia, unspecified organism Status: Acute Assessment and Plan: Patient being treated with Rocephin azithromycin will continue to monitor will repeat chest x-ray in 2 days and further recommendation to follow (3) COPD (chronic obstructive pulmonary disease): Qualifiers: COPD type: COPD with acute lower respiratory infection Qualified Code(s): J44.0 - Chronic obstructive pulmonary disease with (acute) lower respiratory infection Code(s): J44.9 - Chronic obstructive pulmonary disease, unspecified Status: Acute Assessment and Plan: Patient is being treated with Solu-Medrol updraft and Pulmicort, will continue to monitor as patient's symptoms improved will taper Solu-Medrol DS: Summary Hospital Course Reason for hospitalization: Chief Complaint: Shortness of breath Narrative: 80-year-old female past medical history coronary artery disease, hypertension, peripheral vascular dis
[2021-01-12 12:06] LABS: Glucose Point of Care 172 (65-105)
== END 2021-01-12 13:30 | DRG 292 ==
LOC: ANHED 21:23 → ANH3MEDSUR 23:05
PROVIDERS: Admitting Provider Internal Medicine; Emergency Provider Emergency Medicine; PCP Internal Medicine; Visit Provider Family Medicine
DX: I11.0 Hypertensive heart disease with heart failure (principal); J96.11 Chronic respiratory failure with hypoxia; J44.1 Chronic obstructive pulmonary disease with (acute) exacerbation; Z20.822 Contact with and (suspected) exposure to COVID-19; I50.33 Acute on chronic diastolic (congestive) heart failure; N28.9 Disorder of kidney and ureter, unspecified; I25.10 Atherosclerotic heart disease of native coronary artery without angina pectoris; Z99.81 Dependence on supplemental oxygen; I27.20 Pulmonary hypertension, unspecified; I48.0 Paroxysmal atrial fibrillation; E11.40 Type 2 diabetes mellitus with diabetic neuropathy, unspecified; E11.51 Type 2 diabetes mellitus with diabetic peripheral angiopathy without gangrene; E78.00 Pure hypercholesterolemia, unspecified; E03.9 Hypothyroidism, unspecified; Z28.21 Immunization not carried out because of patient refusal; I25.2 Old myocardial infarction; Z74.01 Bed confinement status; Z99.3 Dependence on wheelchair; Z79.4 Long term (current) use of insulin; Z79.899 Other long term (current) drug therapy; Z87.891 Personal history of nicotine dependence; Z98.42 Cataract extraction status, left eye; Z98.41 Cataract extraction status, right eye; Z96.1 Presence of intraocular lens; Z89.512 Acquired absence of left leg below knee; Z89.511 Acquired absence of right leg below knee; Z95.1 Presence of aortocoronary bypass graft
CPT/HCPCS: 36415; 36600; 71045; 80048; 80076; 81001; 82805; 82948; 83605; 83690; 83735; 83880; 85025; 85027; 85610; 85730; 87040; 93005; 94640; 96365; 96366; 96367; 96372; 96375; 96376; 97161; 97165; 99285; A9270; C9803; G0378; J0456; J0696; J1650; J1815; J1940; J2930; J7512; U0003; U0005

== ENCOUNTER 2021-04-07 07:41 | Outpatient (RCR) | payer OTHER, SELFPAY ==
[2021-01-27 00:04] VITALS: BMI 48.9
--- NOTE | 2021-01-27 09:10 | PM.IMHP ---
H&P: HPI History of Present Illness Date/Time: 01/27/21 [id number] patient returns for follow-up [facility] outpatient wound clinic For follow-up of left below-knee amputation wound dehiscence. notified that stump shrinkage started 2 days ago. The next day a blister was noted on the end of the stump. Dressing changes and wound care started. No other new complaints. Chief Complaint: Left below-knee amputation with wound dehiscence Review of Systems Constitutional: Constitutional: Denies chills and Reports fatigue Eyes: Eyes: Reports no additional eye complaints ENT: Reports Normal hearing present, Denies epistaxis and Denies nasal congestion Cardiovascular: Cardiovascular: Denies chest pain, Denies leg edema, Denies lightheadedness and Denies palpitations Respiratory: Respiratory: Denies chest congestion, Denies cough, Denies hemoptysis, Reports dyspnea and Reports dyspnea on exertion Gastrointestinal: Gastrointestinal: Denies abdominal pain, Denies hematochezia and Denies hematemesis Genitourinary: Genitourinary: Denies hematuria and Denies dysuria Musculoskeletal: Musculoskeletal: Reports other ( Bilateral leg amputations) Integumentary/Breasts: Skin/Breast: Denies rash Neurologic: Denies Abnormal speech present and Denies headache(s) Psychiatric: Psychiatric: Denies no additional psychiatric complaints Endocrine: Endocrine: Denies cold intolerance, Denies heat intolerance and Denies polyphagia Hematologic/Lymphatic: Hematologic/Lymphatic: Reports easy bleeding and Reports easy bruising PMFSH Past Medical History Medical History Anemia C. difficile colitis CAD (coronary artery disease) CHF (congestive heart failure) Echocardiogram August 2020: EF of 55-60%, technically difficult to study, diastolic function abnormal, right ventricular systolic function mildly reduced, [id number] tricuspid valve regurgitation, moderate pulmonary hypertension Depression Diabetes mellitus High cholesterol Hypertension Hypothyroidism LBBB (left bundle branch block) Moderate pulmonary hypertension Neuropathy NSTEMI (non-ST elevated myocardial infarction) (09/23/20) Osteomyelitis of left foot Paroxysmal atrial fibrillation Peripheral arterial occlusive disease Right-sided heart failure Noted on echocardiogram August 2020 with mildly reduced right ventricular systolic function Surgical History Surgical History 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 She was was living with her two sons prior to her recent BKA in September 2020. She is now residing at [facility]. Prior to her left BKA she used to eat ambulate with a walker and a right lower extremity prosthesis. She has not ambulated since September. She smoked between 0.5-1 pack of cigarettes per day for 54 years but quit smoking 7 years ago when she had her right [id number]-emhy amputation. Code status: Full code Smoking packs per day: 1 Smoking cigarettes per day: 20.0 Years smoke
--- NOTE | 2021-02-24 09:16 | PM.IMHP ---
H&P: HPI History of Present Illness Date/Time: 02/24/21 09:16 Chief Complaint: Left below-knee amputation wound Narrative: presents from retirement to [facility] outpatient wound clinic for follow-up of left below-knee amputation stump open wounds. Currently doing silver gel and dressing changes. Denies fever or chills. Review of Systems Constitutional: Constitutional: Denies chills and Reports fatigue Eyes: Eyes: Reports no additional eye complaints ENT: Reports Normal hearing present, Denies epistaxis and Denies nasal congestion Cardiovascular: Cardiovascular: Denies chest pain, Denies leg edema, Denies lightheadedness and Denies palpitations Respiratory: Respiratory: Denies chest congestion, Denies cough, Denies hemoptysis, Reports dyspnea and Reports dyspnea on exertion Gastrointestinal: Gastrointestinal: Denies abdominal pain, Denies hematochezia and Denies hematemesis Genitourinary: Genitourinary: Denies hematuria and Denies dysuria Musculoskeletal: Musculoskeletal: Reports other ( Bilateral leg amputations) Integumentary/Breasts: Skin/Breast: Denies rash Neurologic: Denies Abnormal speech present and Denies headache(s) Psychiatric: Psychiatric: Denies no additional psychiatric complaints Endocrine: Endocrine: Denies cold intolerance, Denies heat intolerance and Denies polyphagia Hematologic/Lymphatic: Hematologic/Lymphatic: Reports easy bleeding and Reports easy bruising PMFSH Past Medical History Medical History Anemia C. difficile colitis CAD (coronary artery disease) CHF (congestive heart failure) Echocardiogram August 2020: EF of 55-60%, technically difficult to study, diastolic function abnormal, right ventricular systolic function mildly reduced, [id number] tricuspid valve regurgitation, moderate pulmonary hypertension Depression Diabetes mellitus High cholesterol Hypertension Hypothyroidism LBBB (left bundle branch block) Moderate pulmonary hypertension Neuropathy NSTEMI (non-ST elevated myocardial infarction) (09/23/20) Osteomyelitis of left foot Paroxysmal atrial fibrillation Peripheral arterial occlusive disease Right-sided heart failure Noted on echocardiogram August 2020 with mildly reduced right ventricular systolic function Surgical History Surgical History 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 She was was living with her two sons prior to her recent BKA in September 2020. She is now residing at [facility]. Prior to her left BKA she used to eat ambulate with a walker and a right lower extremity prosthesis. She has not ambulated since September. She smoked between 0.5-1 pack of cigarettes per day for 54 years but quit smoking 7 years ago when she had her right [id number]-rgm-[id number] amputation. Code status: Full code Smoking packs per day: 1 Smoking cigarettes per day: 20.0 Years smoked: 54 Smoking pack-years: 54.00 Smoking status: Former smoker Tobacco type: cigarettes Smoking en
--- NOTE | 2021-03-17 09:12 | PM.IMHP ---
H&P: HPI History of Present Illness Date/Time: 03/17/21 09:12 Chief Complaint: Left BKA wound Narrative: patient follows up in [place] wound clinic today for re-evaluation of left sjthr-equ-qozh amputation site wound. Patient is currently performing dressing changes with silver gel in gentamicin daily. She reports improvement in drainage and wound. No new concerns today. Review of Systems Constitutional: Constitutional: Denies chills and Reports fatigue Eyes: Eyes: Reports no additional eye complaints ENT: Reports Normal hearing present, Denies epistaxis and Denies nasal congestion Cardiovascular: Cardiovascular: Denies chest pain, Denies leg edema, Denies lightheadedness and Denies palpitations Respiratory: Respiratory: Denies chest congestion, Denies cough, Denies hemoptysis, Reports dyspnea and Reports dyspnea on exertion Gastrointestinal: Gastrointestinal: Denies abdominal pain, Denies hematochezia and Denies hematemesis Genitourinary: Genitourinary: Denies hematuria and Denies dysuria Musculoskeletal: Musculoskeletal: Reports other ( Bilateral leg amputations) Integumentary/Breasts: Skin/Breast: Denies rash Neurologic: Denies Abnormal speech present and Denies headache(s) Psychiatric: Psychiatric: Denies no additional psychiatric complaints Endocrine: Endocrine: Denies cold intolerance, Denies heat intolerance and Denies polyphagia Hematologic/Lymphatic: Hematologic/Lymphatic: Reports easy bleeding and Reports easy bruising PMFSH Past Medical History Medical History Anemia C. difficile colitis CAD (coronary artery disease) CHF (congestive heart failure) Echocardiogram August 2020: EF of 55-60%, technically difficult to study, diastolic function abnormal, right ventricular systolic function mildly reduced, [id number] tricuspid valve regurgitation, moderate pulmonary hypertension Depression Diabetes mellitus High cholesterol Hypertension Hypothyroidism LBBB (left bundle branch block) Moderate pulmonary hypertension Neuropathy NSTEMI (non-ST elevated myocardial infarction) (09/23/20) Osteomyelitis of left foot Paroxysmal atrial fibrillation Peripheral arterial occlusive disease Right-sided heart failure Noted on echocardiogram August 2020 with mildly reduced right ventricular systolic function Surgical History Surgical History 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 She was was living with her two sons prior to her recent BKA in September 2020. She is now residing at [facility]. Prior to her left BKA she used to eat ambulate with a walker and a right lower extremity prosthesis. She has not ambulated since September. She smoked between 0.5-1 pack of cigarettes per day for 54 years but quit smoking 7 years ago when she had her right kbfqv-dmr-eqwd amputation. Code status: Full code Smoking packs per day: 1 Smoking cigarettes per day: 20.0 Years smoked: 54 Smoking pack-years: 54.00 Smoking status: Former smo
--- NOTE | 2021-04-07 09:00 | PM.IMHP ---
H&P: HPI History of Present Illness Date/Time: 04/07/21 09:00 Chief Complaint: Left BKA wound Narrative: Patient follows up in [place] wound clinic today for re-evaluation of left kedew-gqr-uozo amputation site wound. Concerns for new drainage from the two wounds on the stump by SNF. Patient is currently performing dressing changes with gentamicin daily. No fever, chills, night sweats, nausea, vomiting or diarrhea. Review of Systems Constitutional: Constitutional: Denies chills and Reports fatigue Eyes: Eyes: Reports no additional eye complaints ENT: Reports Normal hearing present, Denies epistaxis and Denies nasal congestion Cardiovascular: Cardiovascular: Denies chest pain, Denies leg edema, Denies lightheadedness and Denies palpitations Respiratory: Respiratory: Denies chest congestion, Denies cough, Denies hemoptysis, Reports dyspnea and Reports dyspnea on exertion Gastrointestinal: Gastrointestinal: Denies abdominal pain, Denies hematochezia and Denies hematemesis Genitourinary: Genitourinary: Denies hematuria and Denies dysuria Musculoskeletal: Musculoskeletal: Reports other ( Bilateral leg amputations) Integumentary/Breasts: Skin/Breast: Denies rash Neurologic: Denies Abnormal speech present and Denies headache(s) Psychiatric: Psychiatric: Denies no additional psychiatric complaints Endocrine: Endocrine: Denies cold intolerance, Denies heat intolerance and Denies polyphagia Hematologic/Lymphatic: Hematologic/Lymphatic: Reports easy bleeding and Reports easy bruising PMFSH Past Medical History Medical History Anemia C. difficile colitis CAD (coronary artery disease) CHF (congestive heart failure) Echocardiogram August 2020: EF of 55-60%, technically difficult to study, diastolic function abnormal, right ventricular systolic function mildly reduced, [id number]-jkjswbrg tricuspid valve regurgitation, moderate pulmonary hypertension Depression Diabetes mellitus High cholesterol Hypertension Hypothyroidism LBBB (left bundle branch block) Moderate pulmonary hypertension Neuropathy NSTEMI (non-ST elevated myocardial infarction) (09/23/20) Osteomyelitis of left foot Paroxysmal atrial fibrillation Peripheral arterial occlusive disease Right-sided heart failure Noted on echocardiogram August 2020 with mildly reduced right ventricular systolic function Surgical History Surgical History 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 She was was living with her two sons prior to her recent BKA in September 2020. She is now residing at [facility]. Prior to her left BKA she used to eat ambulate with a walker and a right lower extremity prosthesis. She has not ambulated since September. She smoked between 0.5-1 pack of cigarettes per day for 54 years but quit smoking 7 years ago when she had her right rpytr-vpm-amxf amputation. Code status: Full code Smoking packs per day: 1 Smoking cigarettes per day: 20.0 Years smoked: 54 Smoking pack-ye
== END 2021-04-27 23:59 | disposition home or self-care (01) ==
LOC: ANHWOC 07:41
PROVIDERS: PCP Internal Medicine; Referring Provider Orthopaedic Surgery; Visit Provider Nurse Practitioner Family
DX: Z48.01 Encounter for change or removal of surgical wound dressing (principal); T81.31XD Disruption of external operation (surgical) wound, not elsewhere classified, subsequent encounter; Z47.1 Aftercare following joint replacement surgery; Z89.512 Acquired absence of left leg below knee
CPT/HCPCS: 99212; A9270; G0463

== ENCOUNTER 2021-04-28 08:22 | Outpatient (RCR) | payer OTHER, SELFPAY ==
[2021-04-28 00:04] VITALS: BMI 48.9
--- NOTE | 2021-04-28 09:15 | P.PNOP_ITS ---
Subjective Subjective Date/Time Seen: 04/28/21 09:15 Principal diagnosis: Left below-knee amputation Interval history: patient returns to [facility] outpatient wound clinic for re-evaluation of left below-knee amputation wound dehiscence. [facility] and gentamicin gel daily. They noted continued drainage from the stump. Patient states she is getting frustrated with the healing time. Review of Systems Constitutional: Constitutional: Denies chills and Reports fatigue Eyes: Eyes: Reports no additional eye complaints ENT: Reports Normal hearing present, Denies epistaxis and Denies nasal congestion Cardiovascular: Cardiovascular: Denies chest pain, Denies leg edema, Denies lightheadedness and Denies palpitations Respiratory: Respiratory: Denies chest congestion, Denies cough, Denies hemoptysis, Reports dyspnea and Reports dyspnea on exertion Gastrointestinal: Gastrointestinal: Denies abdominal pain, Denies hematochezia and Denies hematemesis Genitourinary: Genitourinary: Denies hematuria and Denies dysuria Musculoskeletal: Musculoskeletal: Reports other ( Bilateral leg amputations) Integumentary/Breasts: Skin/Breast: Denies rash Neurologic: Denies Abnormal speech present and Denies headache(s) Psychiatric: Psychiatric: Denies no additional psychiatric complaints Endocrine: Endocrine: Denies cold intolerance, Denies heat intolerance and Denies polyphagia Hematologic/Lymphatic: Hematologic/Lymphatic: Reports easy bleeding and Reports easy bruising Exam Const: General: healthy appearing; No in distress or confusion Orientation/consciousness: patient oriented x3 and No confusion HENMT: Head: normal to inspection, normocephalic and atraumatic Eyes: Conjunctivae: conjunctivae normal Sclera: sclerae normal Resp: Effort & Inspection: normal respiratory effort and no audible wheezes Neuro: General: patient oriented x3 and No confusion Extrem: Left lower extremity: knee Details: normal to inspection and normal ROM; no tenderness and no swelling and lower leg (Left BKA ) Details: tenderness (Medial/Lateral BKA wounds ); no erythema and no ecchymosis Other: Left below-knee amputation site with two wounds measuring 0.4x0.4x1.0 cm on the more central wound and 0.5x0.5x0.6 cm wound on the more proximal/lateral wound bed. Minimal swelling. Mild purulent drainage. Surrounding tissue without signs of infection. Good range of motion of the knee. There is erythema over the front of the amputation stump appears to be dependent. Psych: Affect: normal affect
--- NOTE | 2021-04-28 09:20 | PM.IMHP ---
H&P: HPI History of Present Illness Date/Time: 04/28/21 9:00 Chief Complaint: Left below-knee amputation wound dehiscence Narrative: patient returns to [facility] outpatient wound clinic for re-evaluation of left below-knee amputation wound dehiscence. Currently doing dressing changes at the half-way with silver gel and gentamicin gel daily. They noted continued drainage from the stump. Patient states she is getting frustrated with the healing time. Review of Systems Constitutional: Constitutional: Denies chills and Reports fatigue Eyes: Eyes: Reports no additional eye complaints ENT: Reports Normal hearing present, Denies epistaxis and Denies nasal congestion Cardiovascular: Cardiovascular: Denies chest pain, Denies leg edema, Denies lightheadedness and Denies palpitations Respiratory: Respiratory: Denies chest congestion, Denies cough, Denies hemoptysis, Reports dyspnea and Reports dyspnea on exertion Gastrointestinal: Gastrointestinal: Denies abdominal pain, Denies hematochezia and Denies hematemesis Genitourinary: Genitourinary: Denies hematuria and Denies dysuria Musculoskeletal: Musculoskeletal: Reports other ( Bilateral leg amputations) Integumentary/Breasts: Skin/Breast: Denies rash Neurologic: Denies Abnormal speech present and Denies headache(s) Psychiatric: Psychiatric: Denies no additional psychiatric complaints Endocrine: Endocrine: Denies cold intolerance, Denies heat intolerance and Denies polyphagia Hematologic/Lymphatic: Hematologic/Lymphatic: Reports easy bleeding and Reports easy bruising PMFSH Past Medical History Medical History Anemia C. difficile colitis CAD (coronary artery disease) CHF (congestive heart failure) Echocardiogram August 2020: EF of 55-60%, technically difficult to study, diastolic function abnormal, right ventricular systolic function mildly reduced, etce-ds-kpelzmza tricuspid valve regurgitation, moderate pulmonary hypertension Depression Diabetes mellitus High cholesterol Hypertension Hypothyroidism LBBB (left bundle branch block) Moderate pulmonary hypertension Neuropathy NSTEMI (non-ST elevated myocardial infarction) (09/23/20) Osteomyelitis of left foot Paroxysmal atrial fibrillation Peripheral arterial occlusive disease Right-sided heart failure Noted on echocardiogram August 2020 with mildly reduced right ventricular systolic function Surgical History Surgical History 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 She was was living with her two sons prior to her recent BKA in September 2020. She is now residing at [facility]. Prior to her left BKA she used to eat ambulate with a walker and a right lower extremity prosthesis. She has not ambulated since September. She smoked between 0.5-1 pack of cigarettes per day for 54 years but quit smoking 7 years ago when she had her right wcyhl-trc-ilwr amputation. Code status: Full code Smoking packs per day: 1 Smoking cigarettes per
== END 2021-06-23 10:00 | disposition home or self-care (01) ==
LOC: ANHWOC 08:22
PROVIDERS: PCP Internal Medicine; Referring Provider Orthopaedic Surgery; Visit Provider Nurse Practitioner Family
DX: Z48.01 Encounter for change or removal of surgical wound dressing (principal); T81.31XD Disruption of external operation (surgical) wound, not elsewhere classified, subsequent encounter; Z47.1 Aftercare following joint replacement surgery; Z89.512 Acquired absence of left leg below knee
CPT/HCPCS: 99212; G0463

== ENCOUNTER 2021-05-02 12:48 | Inpatient (IN) | payer OTHER, SELFPAY ==
[2021-05-02] VITALS (43 sets, daily range): BP systolic 101–134; BP diastolic 42–66; PULSE 57–65; RESP 12–28; TEMP 36.1–36.5; O2SAT 99–100; BMI 37.4
--- NOTE | ~2021-05-02 | XR_ITS ---
EXAMINATION: XR knee LT 3V DATE: 05/02/2021 13:43 INDICATION: Left lower leg pain. Stump infection. TECHNIQUE: 3 views of left knee were obtained. COMPARISON: None. FINDINGS: There are changes of below knee amputation. There is periosteal reaction of tibial diaphysi s and fibula diaphysis. There is erosion of the anterior cortex of the distal aspect of the tibial st ump. There is lateral subluxation of tibia with respect to distal femur. 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 There is a moderate-sized knee joint effusion. There is a surgical c lip in the soft tissues medial to the knee. IMPRESSION: 1. Erosion of the anterior cortex of the distal aspect of the tibial stump suspicious for osteomyelit is. 2. Periosteal reaction of tibial diaphysis and fibular diaphysis, which is nonspecific, and may be se condary to healing amputation, venous stasis, or osteomyelitis. Reviewed, dictated and finalized at location A. IMPRESSION: 1. Erosion of the anterior cortex of the distal aspect of the tibial stump susp icious for osteomyelitis. 2. Periosteal reaction of tibial diaphysis and fibular diaphysis, which is nons pecific, and may be secondary to healing amputation, venous stasis, or osteomye litis.
--- NOTE | ~2021-05-02 | XR_ITS ---
EXAMINATION: XR chest 2V DATE: 05/11/2021 08:52 INDICATION: Shortness of breath TECHNIQUE: AP and lateral views of the chest are obtained. COMPARISON: 01/10/2021 FINDINGS: There are diffuse interstitial and airspace opacities throughout all lung zones. More focal opacity is seen in the right upper lobe. There are airspace opacities of the lung bases. Cardiomegal y is noted. Median sternotomy wires and mediastinal surgical clips are seen, likely from prior portillo ry artery bypass grafting. There are small pleural effusions. No pneumothorax is identified. There is moderate thoracic spondylosis. IMPRESSION: 1. Cardiomegaly with pulmonary edema. 2. More focal airspace opacity of the right upper lobe could reflect pneumonia. 3. Small pleural effusions with likely passive atelectasis of the lung bases. Reviewed, dictated and finalized at location B.
[2021-05-02 13:09] LABS: Basophils Absolute Auto 0.2 K/mm3 (0.0-0.1); Eosinophils Absolute Auto 0.3 K/mm3 (0-0.3); Eosinophils Percent Auto 2.2 % (0-4.4); Hematocrit 37.8 % (37.0-47.0); Hemoglobin 11.1 g/dL (12.0-15.0); Immature Granulocyte Absolute 0.65 K/mm3 (0.00-0.031); Immature Granulocyte Percent A 5.3 % (0-0.5); Lymphocytes Absolute Auto 1.22 K/mm3 (0.9-3.2); Lymphocytes Percent Auto 9.9 % (18.3-44.2); Mean Corpuscular HGB Conc 29.4 g/dl (32-36); Mean Corpuscular Hemoglobin 28.8 pg (26-34); Mean Corpuscular Volume 97.9 fl (80-100); Mean Platelet Volume 10.2 fl (7.4-10.4); Monocytes Percent Auto 8.1 % (2.6-8.5); Neutrophils Absolute Auto 8.9 K/mm3 (1.3-6.7); Neutrophils Percent Auto 72.5 % (45.5-73.1); Platelet Count Result 270 k/mm3 (150-375); Red Blood Count 3.86 M/mm3 (4.2-5.4); Red Cell Distribution Width 15.9 % (11.5-14.5); White Blood Count 12.3 K/mm3 (4.5-10.0)
[2021-05-02 13:18] LABS: Alanine Aminotransferase 40 U/L (4-35); Albumin Level 3.8 g/dL (3.5-5.1); Alkaline Phosphatase 222 U/L (38-126); Anion Gap 7 mmol/L (8-16); Aspartate Amino Transferase 37 U/L (14-36); Bilirubin,Total 0.6 mg/dL (0.2-1.3); Blood Urea Nitrogen 26 mg/dL (7-17); Calcium 8.9 mg/dL (8.4-10.2); Carbon Dioxide 36 mmol/L (22-30); Chloride 94 mmol/L (98-107); Creatine Kinase 41 U/L (30-135); Estimated Glomerular Filt Rate 48; Glucose 197 mg/dL (65-105); Potassium 4.2 mmol/L (3.4-5.0); Sodium 137 mmol/L (137-145)
--- NOTE | 2021-05-02 13:26 | ED.GENADULT ---
HPI - General Adult General Chief complaint: Wound/Laceration Stated complaint: Discharge from amputation Time Seen by Provider: 05/02/21 12:53 Source: patient History of Present Illness HPI narrative: Patient is a 81 y/o female complaining of increased left leg stump pain since yesterday. She states that her wound never healed completely since her BKA last year. She describes her pain as throbbing and rates it as 10/10. There is no known alleviating or exacerbating factor. She also has some drainage from the wound. She has no fever or chills. Related Data Home Medications Medication Instructions Recorded Confirmed atorvastatin 40 mg PO HS 10/15/20 01/08/21 amiodarone 200 mg PO QAM 10/28/20 01/08/21 carvedilol 3.125 mg PO BID 10/28/20 01/08/21 polysaccharide iron complex 150 mg PO DAILY 10/28/20 01/08/21 [Ferrex 150] Advair HFA 2 puff INHALATION BID 11/19/20 01/08/21 acetaminophen 500 mg PO Q6H PRN 11/19/20 01/08/21 insulin lispro [Humalog KwikPen 6 unit SUBCUT TIDWMEAL 11/19/20 01/08/21 Insulin] insulin lispro [Humalog KwikPen See Rx Instructions .ROUTE .COMPLEX 11/19/20 01/08/21 Insulin] ipratropium-albuterol 3 ml INHALATION Q6H PRN 11/19/20 01/08/21 potassium chloride 20 meq PO DAILY 11/19/20 01/08/21 Lantus Solostar U-100 Insulin 20 unit SUBCUT HS 01/08/21 01/08/21 Lantus Solostar U-100 Insulin 30 unit SUBCUT QAM 01/08/21 01/08/21 polyvinyl alcohol [Artificial 1 drp EACH EYE BID 01/08/21 01/08/21 Tears (polyvin alc)] Allergies Allergy/AdvReac Type Severity Reaction Status Date / Time No Known Allergies Allergy Verified 01/07/21 21:49 Review of Systems Constitutional: Constitutional: Denies chills, Denies fever(s), Denies headache(s) and Denies weakness Eyes: Eyes: Denies blurry vision ENT: Denies headache(s) and Denies neck pain Cardiovascular: Cardiovascular: Denies chest pain and Denies dyspnea Respiratory: Respiratory: Denies cough and Denies dyspnea Gastrointestinal: Gastrointestinal: Denies abdominal pain, Denies diarrhea, Denies nausea and Denies vomiting Genitourinary: Genitourinary: Denies hematuria and Denies dysuria Musculoskeletal: Musculoskeletal: Denies back pain, Denies neck pain and Reports other (pain at left BKA stump) Integumentary/Breasts: Skin/Breast: Reports wounds (left BK stump with some drainage) Neurologic: Denies headache(s) and Denies weakness PMFSH Past Medical History Medical History Anemia C. difficile colitis CAD (coronary artery disease) CHF (congestive heart failure) Echocardiogram August 2020: EF of 55-60%, technically difficult to study, diastolic function abnormal, right ventricular systolic function mildly reduced, yann-wq-gvuwpfal tricuspid valve regurgitation, moderate pulmonary hypertension Depression Diabetes mellitus High cholesterol Hypertension Hypothyroidism LBBB (left bundle branch block) Moderate pulmonary hypertension Neuropathy NSTEMI (non-ST elevated myocardial infarction) (09/23/20) Osteomyelitis of left foot Paroxysmal atrial fibrillation Peripheral arterial occlusive disease Right-sided heart failure Noted on echocardiogram August 2020 with mildly reduced right ventricular systolic function Surgical History Surgical History 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 Postop complication of wound dehiscence with wound VAC placement November 2020 History of right below knee amputation (~08/2015) History of transmetatarsal amputation of left foot transmetatarsal amputations at the necks of the 2nd/3rd Hx of CABG (~2004) 3 vessel CABG Status post cataract extraction of both eyes with insertion of intraocular lens Family History Family History Sibling Family history of cardiovascular disease Diabe
[2021-05-02 15:30] LABS: CRP 1.3 mg/dL (<1.0)
[2021-05-02 15:39] LABS: Lactic Acid Reflex 1.1 mmol/L (0.7-2.1)
[2021-05-02 15:56] LABS: Erythrocyte Sedimentation Rate 36 mm/hr (0-20)
--- NOTE | 2021-05-02 19:54 | ADMGEN ---
This patient, Owen Escobar, was admitted to 2 Medical Room 248-01. Patient/family oriented to hospital policies and general routines including ID bracelet, bed and alarms, visiting hours, pain management, procedures, bathroom and other care routines, personal items, smoking policy, room service/diet, and visiting hours. Information on how to activate the Rapid Response Team has been discussed. Patient/Family are encouraged to report perceived risks to care and to ask questions if they do not understand what they are told or what they should do.
--- NOTE | 2021-05-02 22:40 | PM.IMHP ---
H&P: HPI History of Present Illness Date/Time: 05/02/21 22:40 Chief Complaint: Discharge from left leg amputation site. Narrative: This is a 81-year-old female with coronary artery disease, peripheral vascular disease, insulin-dependent diabetes, chronic respiratory failure on oxygen, congestive heart failure, hypertension, and hyperlipidemia who presented to the emergency department earlier today via EMS from [facility] for evaluation of discharge from her left leg amputation site. She is followed by the outpatient wound clinic here at [place] for wound dehiscence at the left stump site and it was documented on 04/28/2021 that she had continued drainage from the stump. The last 2 days or so she has had increasing drainage and has developed pretty significant, throbbing pain at this site as well as redness and swelling. X-ray of the leg done on arrival to the emergency department today showed findings concerning for osteomyelitis and she is being admitted in this setting. At the time my evaluation she has no specific complaints and she denies fever, chills, sweats, chest pain, shortness of breath, nausea, vomiting, diarrhea, and dysuria. Review of Systems Review of Systems: Narrative: Twelve systems were reviewed with pertinent positives and negatives as per HPI. No recent cold or flu symptoms. She reports that her glucose goes up and down. She did not give me any specifics. Denies blurry vision, polydipsia, and polyuria. She does not recall her last hemoglobin A1c. Except as documented, all other systems were reviewed and are negative. [facility] Past Medical History Medical History (Updated 05/02/21 @ 23:41 by Leidy Rowan PA-C) C. difficile colitis Chronic anemia Chronic kidney disease Chronic obstructive pulmonary disease Congestive heart failure Echocardiogram August 2020: EF of 55-60%, technically difficult to study, diastolic function abnormal, right ventricular systolic function mildly reduced, cimv-ma-erxzjund tricuspid valve regurgitation, moderate pulmonary hypertension. Coronary artery disease Depression High cholesterol Hypertension Hypothyroidism Insulin dependent type 2 diabetes mellitus Hemoglobin A1c was 10.3% in August 2020. Left bundle branch block Moderate pulmonary hypertension Neuropathy NSTEMI (non-ST elevated myocardial infarction) (09/23/20) Osteomyelitis of left foot Paroxysmal atrial fibrillation (09/2020) Peripheral arterial occlusive disease Right-sided heart failure Noted on echocardiogram August 2020 with mildly reduced right ventricular systolic function. Surgical History Surgical History (Updated 05/02/21 @ 22:49 by Leidy Rowan PA-C) 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 Postop complication of wound dehiscence with wound VAC placement November 2020 History of coronary artery bypass graft x 3 (~2004) History of right below knee amputation (~08/2015) History of transmetatarsal amputation of left foot transmetatarsal amputations at the necks of the 2nd/3rd Status post cataract extraction of both eyes with insertion of intraocular lens Family History Family History Sibling Family history of cardiovascular disease Diabetes mellitus Family history of arthritis Father History of heart attack Heart attack Mother Skin cancer Sibling Diabetes mellitus Other Hypertension Social History Social History (Updated 05/02/21 @ 22:51 by Leidy Rowan PA-C) Social History: Surrogate decision maker: Janessa Rubio, granddaughter. Code status: Full code. Smoking packs per day: 1 Smoking cigarettes per day: 20.0 Years smoked: 60 Smoking pack-years: 60.00 Smoking status: Former smoker Tobacco type: cigarettes Smoking end date: 08/21/15 Additional smoking assessment comments: Every once in [facility]
[2021-05-02 23:27] LABS: Hemoglobin A1C 6.5 % (<5.7)
[2021-05-03] VITALS (14 sets, daily range): BP systolic 105–144; BP diastolic 44–68; PULSE 68–99; RESP 16–28; TEMP 35.7–36.5; O2SAT 93–100
[2021-05-03] MEDS: INSULIN GLARGINE (*BKC) 100 UNITS/ML 20 UNITS SUB-Q ×2 (00:39→23:39)
--- NOTE | 2021-05-03 00:58 | PC.NURSE ---
crackers and peanut butter given with lantus this evening.
[2021-05-03 01:29] LABS: Glucose Point of Care 126 mg/dl (65-105)
[2021-05-03 05:49] LABS: Hematocrit 36.5 % (37.0-47.0); Hemoglobin 10.8 g/dL (12.0-15.0); Mean Corpuscular HGB Conc 29.6 g/dl (32-36); Mean Corpuscular Hemoglobin 28.7 pg (26-34); Mean Corpuscular Volume 97.1 fl (80-100); Mean Platelet Volume 10.4 fl (7.4-10.4); Platelet Count Result 284 k/mm3 (150-375); Red Blood Count 3.76 M/mm3 (4.2-5.4); Red Cell Distribution Width 15.8 % (11.5-14.5)
[2021-05-03 05:58] LABS: Alanine Aminotransferase 35 U/L (4-35); Albumin Level 3.5 g/dL (3.5-5.1); Alkaline Phosphatase 189 U/L (38-126); Anion Gap 4 mmol/L (8-16); Aspartate Amino Transferase 31 U/L (14-36); Bilirubin,Total 0.5 mg/dL (0.2-1.3); Blood Urea Nitrogen 23 mg/dL (7-17); Calcium 8.7 mg/dL (8.4-10.2); Carbon Dioxide 35 mmol/L (22-30); Chloride 99 mmol/L (98-107); Estimated CRCL calculation 40 ml/min; Estimated Glomerular Filt Rate 43; Glucose 127 mg/dL (65-105); Magnesium 2.1 mg/dL (1.6-2.3); Potassium 4.2 mmol/L (3.4-5.0); Sodium 138 mmol/L (137-145)
[2021-05-03] MEDS: BUDESONIDE RESPULE NEB 0.5 MG/2 ML AMP INHALATION ×2 (07:52→21:06)
[2021-05-03 08:24] LABS: Glucose Point of Care 101 mg/dl (65-105)
--- NOTE | 2021-05-03 09:04 | P.PNIM_ITS ---
Progress Note: A&P Assessment and Plan (1) Amputation stump infection: Code(s): T87.40 - Infection of amputation stump, unspecified extremity Status: Acute Assessment and Plan: * CT showed tibial stump suspicious of osteomyelitis * 3 wounds present 0.5 x 0.5 scabbed outer lateral 0.5 mining with purulent drainage * Dr. Huerta has been consulted thank you for your support * Imipenem 500mg IV q8hr, vancomycin 1500 mg q.18 hours * wbc's 12 * wound nurse consulted thank you for your help * wound nurse will instruct about dressing changes * trend WBCs * labs in the a.m. * wound cultures, blood cultures pending * deescalate antibiotics with culture results * diabetic carb consistent diet * DVT, Lovenox 40 mg daily (2) Insulin dependent type 2 diabetes mellitus: Code(s): E11.9 - Type 2 diabetes mellitus without complications; Z79.4 - shelter (current) use of insulin Status: Acute Assessment and Plan: * A1c 6.5, glucose 127 per labs, POC glucose 101 * continue home Lantus 30 units q.a.m., Lantus 20 units q.h.s. * continue home aspart 6 units with meals * initiate sliding scale * hypoglycemic protocol * trend labs * labs in the a.m. * adjust medications as needed (3) Chronic kidney disease: Code(s): N18.9 - Chronic kidney disease, unspecified Status: Acute Assessment and Plan: * BUN /creatinine 23/1.20 today GFR 43 * limit the use of nephrotoxic medications * give medications per renal dosing * trend BUN and creatinine * labs in the a.m. (4) Chronic anemia: Code(s): D64.9 - Anemia, unspecified Status: Acute Assessment and Plan: * H/H 10.8/36.5 MCV normal at 97.1 * stable at this time * trend labs * labs in the a.m. * transfuse as needed (5) Chronic obstructive pulmonary disease: Code(s): J44.9 - Chronic obstructive pulmonary disease, unspecified Status: Acute Assessment and Plan: * no signs and symptoms of exacerbation * Pulmicort nebs Q 12 scheduled, Advair inhaler 2 puffs Q 12, albuterol nebs Q 6 p.r.n., Atrovent q.6 p.r.n. * supplemental oxygen to maintain SpO2 greater than 90%, chronic home O2 use at 2 L (6) Congestive heart failure: Code(s): I50.9 - Heart failure, unspecified Status: Acute Assessment and Plan: * stable at this time * no edema noted * EF 55-60%, pulmonary hypertension on echo from 09/2020 * continue home Lasix 20 mg p.o. daily, carvedilol 3.125 mg p.o. b.i.d. * trend I&Os * adjust medications as needed (7) Paroxysmal atrial fibrillation: Onset Date: 09/2020 Code(s): I48.0 - Paroxysmal atrial fibrillation Status: Acute Assessment and Plan: * chronic * EKG from December shows sinus rhythm in the 90s * current heart rate is controlled at 72 * continue home amiodarone 200 mg p.o. daily, continue carvedilol 3.125 p.o. b.i.d. * monitor for any changes Subjective Date/time seen: 05/03/21 08:35 Interval history: patient is a 81-year-old female with a past medical history of coronary artery disease, PVD, diabetes, chronic respiratory failure on oxygen, congestive heart failure, hypertension, and hyperlipidemia who presented the ED from [facility] for evaluation of wound present on left amputation site. Patient stated that
--- NOTE | 2021-05-03 09:04 | PM.IMPN ---
Progress Note: A&P Assessment and Plan (1) Amputation stump infection: Code(s): T87.40 - Infection of amputation stump, unspecified extremity Status: Acute Assessment and Plan: CT showed tibial stump suspicious of osteomyelitis 3 wounds present 0.5 x 0.5 scabbed outer lateral 0.5 mining with purulent drainage Dr. Huerta has been consulted thank you for your support Imipenem 500mg IV q8hr, vancomycin 1500 mg q.18 hours wbc's 12 wound nurse consulted thank you for your help wound nurse will instruct about dressing changes trend WBCs labs in the a.m. 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 continue home aspart 6 units with meals initiate sliding scale hypoglycemic protocol trend labs labs in the a.m. adjust medications as needed (3) Chronic kidney disease: Code(s): N18.9 - Chronic kidney disease, unspecified Status: Acute Assessment and Plan: BUN /creatinine 23/1.20 today GFR 43 limit the use of nephrotoxic medications give medications per renal dosing trend BUN and creatinine labs in the a.m. (4) Chronic anemia: Code(s): D64.9 - Anemia, unspecified Status: Acute Assessment and Plan: H/H 10.8/36.5 MCV normal at 97.1 stable at this time trend labs labs in the a.m. transfuse as needed (5) Chronic obstructive pulmonary disease: Code(s): J44.9 - Chronic obstructive pulmonary disease, unspecified Status: Acute Assessment and Plan: no signs and symptoms of exacerbation Pulmicort nebs Q 12 scheduled, Advair inhaler 2 puffs Q 12, albuterol nebs Q 6 p.r.n., Atrovent q.6 p.r.n. supplemental oxygen to maintain SpO2 greater than 90%, chronic home O2 use at 2 L (6) Congestive heart failure: Code(s): I50.9 - Heart failure, unspecified Status: Acute Assessment and Plan: stable at this time no edema noted EF 55-60%, pulmonary hypertension on echo from 09/2020 continue home Lasix 20 mg p.o. daily, carvedilol 3.125 mg p.o. b.i.d. trend I&Os adjust medications as needed (7) Paroxysmal atrial fibrillation: Onset Date: 09/2020 Code(s): I48.0 - Paroxysmal atrial fibrillation Status: Acute Assessment and Plan: chronic EKG from December shows sinus rhythm in the 90s current heart rate is controlled at 72 continue home amiodarone 200 mg p.o. daily, continue carvedilol 3.125 p.o. b.i.d. monitor for any changes Subjective Date/time seen: 05/03/21 08:35 Interval history: patient is a 81-year-old female with a past medical history of coronary artery disease, PVD, diabetes, chronic respiratory failure on oxygen, congestive heart failure, hypertension, and hyperlipidemia who presented the ED from [facility] for evaluation of wound present on left amputation site. Patient stated that she is doing a whole lot better today her pain is a 5/10 which she says her normal pain is a 7/10. patient stated that her leg is less swollen than it was yesterday and she is feeling better today. Patient denies fever, sweats, chills, nausea, vomiting, lightheadedness, dizziness, urinary dysfunction, falls. Review of Systems Review of Systems: All systems reviewed & are unremarkable except as noted in HPI and below Exam Const: General: cooperative, healthy appearing, comfortable, no acute distress, well developed, alert, awake and Physically active Nutritional
[2021-05-03] MEDS: carvediloL 3.125 MG TABLET PO ×2 (09:08→16:42)
[2021-05-03] MEDS: FUROSEMIDE 20 MG TABLET PO (09:08)
[2021-05-03] MEDS: AMIODARONE HCL 200 MG TABLET PO (09:08)
[2021-05-03] MEDS: POLYSACCHARIDE IRON COMPLEX 150 MG CAPSULE PO (09:09)
[2021-05-03] MEDS: guaiFENesin 12 HR 600 MG TABCR PO ×2 (09:09→23:32)
[2021-05-03] MEDS: POTASSIUM CHLORIDE 20 MEQ TABLET.ER PO (09:10)
[2021-05-03] MEDS: PANTOPRAZOLE 40 MG TABLET PO (09:15)
[2021-05-03] MEDS: ENOXAPARIN 40 MG/0.4 ML SYRINGE SUB-Q (09:16)
[2021-05-03] MEDS: ARTIFICIAL TEARS OPHTH SOLN 15 ML BOTTLE 1 DROP EACH EYE ×2 (09:16→16:42)
[2021-05-03] MEDS: SILVERGEL (ELTA) 45 ML 1 APPLIC TOPICAL (09:29)
[2021-05-03] MEDS: INSULIN GLARGINE (*BKC) 100 UNITS/ML 30 UNITS SUB-Q (09:43)
[2021-05-03] MEDS: GENTAMICIN SULFATE 0.1% OINT 15 GM TUBE 1 APPLIC TOPICAL (10:31)
[2021-05-03] MEDS: traMADol/ACETAMINOPHEN (*CRX) (ULTRACET) 37.5/325 MG TABLET 1 TAB PO (10:40)
[2021-05-03 12:29] LABS: Glucose Point of Care 176 mg/dl (65-105)
[2021-05-03] MEDS: INSULIN ASPART (*BKC) 100 UNITS/ML 6 UNITS SUB-Q ×2 (12:47→17:31)
--- NOTE | 2021-05-03 13:13 | PM.CNOR ---
Assessment and Plan Assessment and plan (1) Amputation stump infection: Code(s): T87.40 - Infection of amputation stump, unspecified extremity Status: Acute Assessment and Plan: Seven months status post left below-knee amputation. Patient course complicated by postoperative wound dehiscence, medical comorbidities which affected healing rate and now chronic draining sinuses of the stump. Appears to be in exacerbation with cellulitis or possibly deeper infection of the left amputation stump. Her labs are relatively stable and she has improved overnight with intravenous antibiotics however she still has an unhealed wound on the left below-knee amputation stump. Long discussion with the patient regarding non operative treatment with further intravenous antibiotics and dressing changes. This is not given her much relief or improvement over the past 2 months. She is trying to get this healed up so that she can start weight-bearing and move to [place] where her family is. Other option would be surgical treatment however this carries the risk of a new surgical wound as well as anesthesia. Previously she was not stable enough to undergo surgery but appears now that she has improved from a medical standpoint. She would like to proceed with surgery. The risks, benefits and alternatives were discussed in detail. Discussed nonoperative and operative treatment options with the patient. Risks and benefits of each as well as alternatives were reviewed. All of the patient's questions were answered. The risks of surgery reviewed including but not limited to: Neurovascular damage, wound complication, infection, blood clot, pulmonary embolus, stroke, myocardial infarction, and anesthetic risks up to and including . Continued pain and possible dysfunction were explained. Specific risks of the procedure including later recurrence of deformity. No guarantees were offered. If complications occur, the patient understands the need for further treatment, possible further surgery. Patient verbalizes understanding and wishes to proceed. PLAN: Left below-knee amputation revision. (2) Wound dehiscence: Code(s): T81.30XA - Disruption of wound, unspecified, initial encounter Status: Acute (3) Pressure ulcer of BKA stump: Code(s): T87.89 - Other complications of amputation stump; L89.899 - Pressure ulcer of other site, unspecified stage Status: Acute History of Present Illness HPI Consult date: 05/03/21 Requesting physician: Huong Cardenas MD Chief complaint: LEFT LEG STUMP WOUND INFECTION Narrative: 81-year-old woman known to the Orthopedic service for bilateral below-knee amputations. Was recently seen in the [facility] on April 28 and was noted to have 2 areas of drainage from the left stump which communicated with bone. There was mild erythema at the time and no evidence of deeper infection. Apparently over the weekend she had increased redness, swelling drainage from the left amputation stump. She was seen in the emergency room yesterday and admitted after starting intravenous antibiotics. He complains of pain over the distal aspect of the stump and continued drainage. Patient states the redness has improved with the antibiotics. Review of Systems Constitutional: Constitutional: Denies chills and Reports fatigue Eyes: Eyes: Reports no additional eye complaints ENT: Reports Normal hearing present, Denies epistaxis and Denies nasal congestion Cardiovascular: Cardiovascular: Denies chest pain, Denies leg edema, Denies lightheadedness and Denies palpitations Respiratory: Respiratory: Denies chest congestion, Denies cough, Denies hemoptysis, Reports dyspnea and Reports dyspnea on exertion Gastrointestinal: Gastrointestinal: Denies abdominal pain, Denies hematochezia and Denies hematemesis Genitourinary: Genitourinary: Denies hematuria and Denies dysuria Musculoskeletal: Musculoskeletal: Reports other ( Bila
--- NOTE | 2021-05-03 17:01 | WPDANESEPP ---
Anes - Eval Pre Procedure Procedure: Operation Date: 05/04/21 10:30 Proposed Procedures p Revision Left Below Knee Amputation - Alexy Huerta MD Date/Time: 05/03/21 17:01 Pre Op Diagnosis: LEFT LEG STUMP WOUND INFECTION Patient Data Age: 81 Gender: F Height: 1.65 m Weight: 101.8 kg Last Vital Signs Temp 96.5 F L 05/03/21 14:00 Pulse 68 05/03/21 16:42 Resp 16 05/03/21 14:00 BP 109/44 L 05/03/21 14:00 Pulse Ox 95 05/03/21 14:00 Allergies Allergy/AdvReac Type Severity Reaction Status Date / Time povidone-iodine AdvReac Mild Other Verified 05/02/21 20:52 [From Betadine] soap [From Betadine] AdvReac Mild Other Verified 05/02/21 20:52 Home Medications Medication Instructions Recorded Confirmed Type pantoprazole 40 mg PO QAM 30 Days #30 tablet 10/05/20 05/02/21 Rx atorvastatin 40 mg PO HS 10/15/20 05/02/21 History amiodarone 200 mg PO QAM 10/28/20 05/02/21 History carvedilol 3.125 mg PO BID 10/28/20 05/02/21 History polysaccharide iron complex 150 mg PO DAILY 10/28/20 05/02/21 History [Ferrex 150] Advair HFA 2 puff INHALATION BID 11/19/20 05/02/21 History acetaminophen 500 mg PO Q6H PRN 11/19/20 05/02/21 History insulin lispro [Humalog KwikPen 6 unit SUBCUT TIDWMEAL 11/19/20 05/02/21 History Insulin] insulin lispro [Humalog KwikPen See Rx Instructions .ROUTE .COMPLEX 11/19/20 05/02/21 History Insulin] ipratropium-albuterol 3 ml INHALATION Q6H PRN 11/19/20 05/02/21 History potassium chloride 20 meq PO DAILY 11/19/20 05/02/21 History Lantus Solostar U-100 Insulin 20 unit SUBCUT HS 01/08/21 05/02/21 History Lantus Solostar U-100 Insulin 30 unit SUBCUT QAM 01/08/21 05/02/21 History polyvinyl alcohol [Artificial 1 drp EACH EYE BID 01/08/21 05/02/21 History Tears (polyvin alc)] budesonide [Pulmicort] 0.5 mg INHALATION Q12HRT #60 vial 01/12/21 05/02/21 Rx furosemide [Lasix] 20 mg PO DAILY #30 tablet 01/12/21 05/02/21 Rx guaifenesin [Mucus Relief ER] 600 mg PO Q12HR #30 tablet 01/12/21 05/02/21 Rx silver [Silver-Sept] 1 applic TOPICAL DAILY #60 g 01/12/21 05/02/21 Rx tramadol-acetaminophen [Ultracet] 1 tablet PO Q4H PRN #12 tablet 01/12/21 05/02/21 Rx Laboratory Tests 05/02/21 05/03/21 05/03/21 15:05 00:38 05:28 WBC 12.0 K/mm3 H K/mm3 (4.5-10.0) RBC 3.76 M/mm3 L M/mm3 (4.2-5.4) Hgb 10.8 g/dL L g/dL (12.0-15.0) Hct 36.5 % L % (37.0-47.0) MCV 97.1 fl fl (80-100) MCH 28.7 pg pg (26-34) MCHC 29.6 g/dl L g/dl (32-36) RDW 15.8 % H % (11.5-14.5) Plt Count 284 k/mm3 k/mm3 (150-375) MPV 10.4 fl fl (7.4-10.4) Sodium Potassium Chloride Carbon Dioxide Anion Gap BUN Creatinine Estim Creat Clear Calc Estimated GFR Glucose POC Capillary Glucose 126 mg/dl H mg/dl (65-105) Hemoglobin A1c 6.5 % H % (<5.7) Calcium Magnesium Total Bilirubin AST ALT Alkaline Phosphatase Total Protein Albumin 05/03/21 05/03/21 05/03/21 05:28 08:22 12:24 WBC RBC Hgb Hct MCV MCH MCHC RDW Plt Count MPV Sodium 138 mmol/L mmol/L (137-145) Potassium 4.2 mmol/L mmol/L (3.4-5.0) Chloride 99 mmol/L mmol/L (98-107) Carbon Dioxide 35 mmol/L H mmol/L (22-30) Anion Gap 4 mmol/L L mmol/L (8-16) BUN 23 mg/dL H mg/dL (7-17) Creatinine 1.20 mg/dL H mg/dL (0.7-1.0) Estim Creat Clear Calc 40 ml/min ml/min Estimated GFR 43 L (59 - ) Glucose 127 mg/dL H mg/dL (65-105) POC Capillary Glucose 101 mg/dl mg/dl 176 mg/dl H mg/dl
[2021-05-03 17:26] LABS: Glucose Point of Care 125 mg/dl (65-105)
[2021-05-03] MEDS: FLUTICASONE/SALMETEROL 115-21 MCG INHALER 1 PUFF 2 PUFF INHALATION (21:40)
[2021-05-03] MEDS: ATORVASTATIN 40 MG TABLET PO (23:32)
[2021-05-03 23:51] LABS: Glucose Point of Care 155 mg/dl (65-105)
[2021-05-04] VITALS (24 sets, daily range): BP systolic 93–143; BP diastolic 22–81; PULSE 61–87; RESP 12–24; TEMP 35.6–36.9; O2SAT 90–100
--- NOTE | 2021-05-04 | ECG_ITS ---
Measurements Intervals [place] Rate: 65 P: 37 AR: 233 QRS: -33 QRSD: 186 T: 130 QT: 493 QTc: 514 Interpretive Statements SINUS RHYTHM WITH FIRST DEGREE AV BLOCK LEFT AXIS DEVIATION LEFT BUNDLE BRANCH BLOCK ABNORMAL ECG Electronically Signed On 05-04-2021 8:14:07 CDT by Stephen Peralta D.O.
[2021-05-04] MEDS: traMADol/ACETAMINOPHEN (*CRX) (ULTRACET) 37.5/325 MG TABLET 1 TAB PO ×2 (00:49→06:44)
[2021-05-04 05:43] LABS: Basophils Absolute Auto 0.2 K/mm3 (0.0-0.1); Basophils Percent Auto 1.9 % (0.2-1.2); Eosinophils Absolute Auto 0.1 K/mm3 (0-0.3); Eosinophils Percent Auto 0.5 % (0-4.4); Hematocrit 33.8 % (37.0-47.0); Hemoglobin 10.2 g/dL (12.0-15.0); Immature Granulocyte Absolute 0.78 K/mm3 (0.00-0.031); Immature Granulocyte Percent A 6.4 % (0-0.5); Lymphocytes Absolute Auto 1.16 K/mm3 (0.9-3.2); Lymphocytes Percent Auto 9.5 % (18.3-44.2); Mean Corpuscular HGB Conc 30.2 g/dl (32-36); Mean Corpuscular Hemoglobin 28.7 pg (26-34); Mean Corpuscular Volume 95.2 fl (80-100); Mean Platelet Volume 10.3 fl (7.4-10.4); Monocytes Absolute Auto 0.7 K/mm3 (0.1-0.6); Monocytes Percent Auto 5.8 % (2.6-8.5); Neutrophils Absolute Auto 9.2 K/mm3 (1.3-6.7); Neutrophils Percent Auto 75.9 % (45.5-73.1); Platelet Count Result 282 k/mm3 (150-375); Red Blood Count 3.55 M/mm3 (4.2-5.4); Red Cell Distribution Width 15.5 % (11.5-14.5); White Blood Count 12.2 K/mm3 (4.5-10.0)
[2021-05-04 05:54] LABS: Alanine Aminotransferase 27 U/L (4-35); Albumin Level 3.4 g/dL (3.5-5.1); Alkaline Phosphatase 185 U/L (38-126); Anion Gap 6 mmol/L (8-16); Aspartate Amino Transferase 26 U/L (14-36); Bilirubin,Total 0.7 mg/dL (0.2-1.3); Blood Urea Nitrogen 21 mg/dL (7-17); Carbon Dioxide 32 mmol/L (22-30); Chloride 96 mmol/L (98-107); Estimated CRCL calculation 48 ml/min; Estimated Glomerular Filt Rate 53; Glucose 190 mg/dL (65-105); Magnesium 2.1 mg/dL (1.6-2.3); Potassium 4.2 mmol/L (3.4-5.0); Sodium 134 mmol/L (137-145)
--- NOTE | 2021-05-04 06:59 | WPDHPUPDATE1 ---
History and Physical Update Update Date/Time: 05/04/21 06:59 History and Physical has been reviewed, including an updated exam of the patient. There are NO changes in the patient's condition. Risks, benefits, and alternatives have been discussed and questions answered. Patient agrees to proceed with procedure.
[2021-05-04] MEDS: ARTIFICIAL TEARS OPHTH SOLN 15 ML BOTTLE 1 DROP EACH EYE ×2 (08:05→16:42)
[2021-05-04] MEDS: AMIODARONE HCL 200 MG TABLET PO (08:21)
[2021-05-04] MEDS: carvediloL 3.125 MG TABLET PO ×2 (08:21→16:42)
[2021-05-04 08:30] LABS: Glucose Point of Care 136 mg/dl (65-105)
[2021-05-04] MEDS: BUDESONIDE RESPULE NEB 0.5 MG/2 ML AMP INHALATION ×2 (09:25→17:53)
[2021-05-04] MEDS: FLUTICASONE/SALMETEROL 115-21 MCG INHALER 1 PUFF 2 PUFF INHALATION ×2 (09:27→17:53)
--- NOTE | 2021-05-04 10:29 | PC.NURSE ---
Report called to Tiffani MOLINA Preop.
--- NOTE | 2021-05-04 10:35 | PC.NURSE ---
To OR via bed.
[2021-05-04] MEDS: LACTATED RINGERS 1,000 ML 30 ML IV CONT ×2 (10:51→14:09)
--- NOTE | 2021-05-04 10:54 | P.PNIM_ITS ---
Progress Note: A&P Assessment and Plan (1) Amputation stump infection: Code(s): T87.40 - Infection of amputation stump, unspecified extremity Status: Acute Assessment and Plan: * CT showed tibial stump suspicious of osteomyelitis * 3 wounds present 0.5 x 0.5 scabbed outer lateral 0.5 mining with purulent drainage * Dr. Huerta has been consulted thank you for your support * Go to surgery today for further bone removal * Imipenem 500mg IV q8hr, vancomycin 1500 mg q.18 hours * wbc's 12.2 today * wound nurse consulted thank you for your help * wound nurse will instruct about dressing changes * trend WBCs * labs in the a.m. * wound cultures, blood cultures pending * deescalate antibiotics with culture results * diabetic carb consistent diet * DVT, Lovenox 40 mg daily * Care coordination has been consulted to find a board for the wheel chair to help with healing. 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 * continue home aspart 6 units with meals * initiate sliding scale * hypoglycemic protocol * trend labs * labs in the a.m. * adjust medications as needed (3) Chronic kidney disease: Code(s): N18.9 - Chronic kidney disease, unspecified Status: Acute Assessment and Plan: * BUN /creatinine 21/1.0 today GFR 53, seems to be correcting at this time * limit the use of nephrotoxic medications * give medications per renal dosing * trend BUN and creatinine * labs in the a.m. (4) Chronic anemia: Code(s): D64.9 - Anemia, unspecified Status: Acute Assessment and Plan: * H/H 10.2/33.8 MCV normal at 95.2 * stable at this time * trend labs * labs in the a.m. * transfuse as needed (5) Chronic obstructive pulmonary disease: Code(s): J44.9 - Chronic obstructive pulmonary disease, unspecified Status: Acute Assessment and Plan: * no signs and symptoms of exacerbation * Pulmicort nebs Q 12 scheduled, Advair inhaler 2 puffs Q 12, albuterol nebs Q 6 p.r.n., Atrovent q.6 p.r.n. * supplemental oxygen to maintain SpO2 greater than 90%, chronic home O2 use at 2 L (6) Congestive heart failure: Code(s): I50.9 - Heart failure, unspecified Status: Acute Assessment and Plan: * stable at this time * no edema noted * EF 55-60%, pulmonary hypertension on echo from 09/2020 * continue home Lasix 20 mg p.o. daily, carvedilol 3.125 mg p.o. b.i.d. * trend I&Os * adjust medications as needed (7) Paroxysmal atrial fibrillation: Onset Date: 09/2020 Code(s): I48.0 - Paroxysmal atrial fibrillation Status: Acute Assessment and Plan: * chronic * EKG from December shows sinus rhythm in the 90s * current heart rate is controlled at 72 * continue home amiodarone 200 mg p.o. daily, continue carvedilol 3.125 p.o. b.i.d. * monitor for any changes Subjective Date/time seen: 05/04/21 09:40 Interval history: patient is a 81-year-old female with a past medical history of coronary artery disease, PVD, diabetes, chronic respiratory failure on oxy
--- NOTE | 2021-05-04 10:54 | PM.IMPN ---
Progress Note: A&P Assessment and Plan (1) Amputation stump infection: Code(s): T87.40 - Infection of amputation stump, unspecified extremity Status: Acute Assessment and Plan: CT showed tibial stump suspicious of osteomyelitis 3 wounds present 0.5 x 0.5 scabbed outer lateral 0.5 mining with purulent drainage Dr. Huerta has been consulted thank you for your support Go to surgery today for further bone removal Imipenem 500mg IV q8hr, vancomycin 1500 mg q.18 hours wbc's 12.2 today wound nurse consulted thank you for your help wound nurse will instruct about dressing changes trend WBCs labs in the a.m. wound cultures, blood cultures pending deescalate antibiotics with culture results diabetic carb consistent diet DVT, Lovenox 40 mg daily Care coordination has been consulted to find a board for the wheel chair to help with healing. 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 continue home aspart 6 units with meals initiate sliding scale hypoglycemic protocol trend labs labs in the a.m. adjust medications as needed (3) Chronic kidney disease: Code(s): N18.9 - Chronic kidney disease, unspecified Status: Acute Assessment and Plan: BUN /creatinine 21/1.0 today GFR 53, seems to be correcting at this time limit the use of nephrotoxic medications give medications per renal dosing trend BUN and creatinine labs in the a.m. (4) Chronic anemia: Code(s): D64.9 - Anemia, unspecified Status: Acute Assessment and Plan: H/H 10.2/33.8 MCV normal at 95.2 stable at this time trend labs labs in the a.m. transfuse as needed (5) Chronic obstructive pulmonary disease: Code(s): J44.9 - Chronic obstructive pulmonary disease, unspecified Status: Acute Assessment and Plan: no signs and symptoms of exacerbation Pulmicort nebs Q 12 scheduled, Advair inhaler 2 puffs Q 12, albuterol nebs Q 6 p.r.n., Atrovent q.6 p.r.n. supplemental oxygen to maintain SpO2 greater than 90%, chronic home O2 use at 2 L (6) Congestive heart failure: Code(s): I50.9 - Heart failure, unspecified Status: Acute Assessment and Plan: stable at this time no edema noted EF 55-60%, pulmonary hypertension on echo from 09/2020 continue home Lasix 20 mg p.o. daily, carvedilol 3.125 mg p.o. b.i.d. trend I&Os adjust medications as needed (7) Paroxysmal atrial fibrillation: Onset Date: 09/2020 Code(s): I48.0 - Paroxysmal atrial fibrillation Status: Acute Assessment and Plan: chronic EKG from December shows sinus rhythm in the 90s current heart rate is controlled at 72 continue home amiodarone 200 mg p.o. daily, continue carvedilol 3.125 p.o. b.i.d. monitor for any changes Subjective Date/time seen: 05/04/21 09:40 Interval history: patient is a 81-year-old female with a past medical history of coronary artery disease, PVD, diabetes, chronic respiratory failure on oxygen, congestive heart failure, hypertension, and hyperlipidemia who presented the ED from [facility] for evaluation of wound present on left amputation site. Patient stated that she was hungry as though she is scheduled for a surgical procedure today. Dr. Huerta taking her to the OR to remove more of her BKA. She did state that her pain was excruciating today probably around a 9 however she was able to get a pain pill and she was feeling fine after that. She has no other complaints except for the pain in her leg but she says starts in her thigh and she has
--- NOTE | 2021-05-04 11:04 | PCPTNOTE ---
Attempted PT evaluation. Pt currently in surgery. Will follow and complete evaluation when appropriate. Do Carty, ALEXYT
--- NOTE | 2021-05-04 11:56 | PCOTNOTE ---
OT evaluation attempted. Patient in surgery this date. Will attempt OT evaluation at later time when medically appropriate.
--- NOTE | 2021-05-04 12:04 | WPDANESEPPF ---
Anes - Initial Pre Proc Eval Procedure: Operation Date: 05/04/21 10:30 Proposed Procedures p Revision Left Below Knee Amputation - Alexy Huerta MD Date/Time: 05/04/21 12:04 Surgeon: Hipolito Sauceda MD Pre Op Diagnosis: LEFT LEG STUMP WOUND INFECTION Patient Data Age: 81 Gender: F Height: 1.65 m Weight: 103 kg Last Vital Signs Temp 36.5 C 05/04/21 10:49 Pulse 65 05/04/21 10:49 Resp 16 05/04/21 10:49 BP 124/56 L 05/04/21 10:49 Pulse Ox 100 05/04/21 10:49 Allergies Allergy/AdvReac Type Severity Reaction Status Date / Time povidone-iodine AdvReac Mild Other Verified 05/02/21 20:52 [From Betadine] soap [From Betadine] AdvReac Mild Other Verified 05/02/21 20:52 Home Medications Medication Instructions Recorded Confirmed Type pantoprazole 40 mg PO QAM 30 Days #30 tablet 10/05/20 05/02/21 Rx atorvastatin 40 mg PO HS 10/15/20 05/02/21 History amiodarone 200 mg PO QAM 10/28/20 05/02/21 History carvedilol 3.125 mg PO BID 10/28/20 05/02/21 History polysaccharide iron complex 150 mg PO DAILY 10/28/20 05/02/21 History [Ferrex 150] Advair HFA 2 puff INHALATION BID 11/19/20 05/02/21 History acetaminophen 500 mg PO Q6H PRN 11/19/20 05/02/21 History insulin lispro [Humalog KwikPen 6 unit SUBCUT TIDWMEAL 11/19/20 05/02/21 History Insulin] insulin lispro [Humalog KwikPen See Rx Instructions .ROUTE .COMPLEX 11/19/20 05/02/21 History Insulin] ipratropium-albuterol 3 ml INHALATION Q6H PRN 11/19/20 05/02/21 History potassium chloride 20 meq PO DAILY 11/19/20 05/02/21 History Lantus Solostar U-100 Insulin 20 unit SUBCUT HS 01/08/21 05/02/21 History Lantus Solostar U-100 Insulin 30 unit SUBCUT QAM 01/08/21 05/02/21 History polyvinyl alcohol [Artificial 1 drp EACH EYE BID 01/08/21 05/02/21 History Tears (polyvin alc)] budesonide [Pulmicort] 0.5 mg INHALATION Q12HRT #60 vial 01/12/21 05/02/21 Rx furosemide [Lasix] 20 mg PO DAILY #30 tablet 01/12/21 05/02/21 Rx guaifenesin [Mucus Relief ER] 600 mg PO Q12HR #30 tablet 01/12/21 05/02/21 Rx silver [Silver-Sept] 1 applic TOPICAL DAILY #60 g 01/12/21 05/02/21 Rx tramadol-acetaminophen [Ultracet] 1 tablet PO Q4H PRN #12 tablet 01/12/21 05/02/21 Rx Laboratory Tests 05/03/21 05/03/21 05/03/21 12:24 17:23 23:37 WBC RBC Hgb Hct MCV MCH MCHC RDW Plt Count MPV Immature Gran % (Auto) Neut % (Auto) Lymph % (Auto) Bland % (Auto) Eos % (Auto) Baso % (Auto) Lymph # (Auto) Bland # (Auto) Eos # (Auto) Baso # (Auto) Abs Immat Gran (auto) Absolute Neuts (auto) Absolute Nucleated RBC Nucleated RBC % Sodium Potassium Chloride Carbon Dioxide Anion Gap BUN Creatinine Estim Creat Clear Calc Estimated GFR Glucose POC Capillary Glucose 176 mg/dl H mg/dl 125 mg/dl H mg/dl 155 mg/dl H mg/dl (65-105) (65-105) (65-105) Calcium Magnesium Total Bilirubin AST ALT Alkaline Phosphatase Total Protein Albumin 05/04/21 05/04/21 05/04/21 05:20 05:20 08:23 WBC 12.2 K/mm3 H K/mm3 (4.5-10.0) RBC 3.55 M/mm3 L M/mm3 (4.2-5.4) Hgb 10.2 g/dL L g/dL (12.0-15.0) Hct 33.8 % L % (37.0-47.0) MCV 95.2 fl fl (80-100) MCH 28.7 pg pg (26-34) MCHC 30.2 g/dl L g/dl (32-36) RDW 15.5 % H % (11.5-14.5) Plt Count 282 k/mm3 k/mm3 (150-375) MPV 10.3 fl fl (7.4-10.4) Immature Gran % (Auto) 6.4 % H % (0-0.5) Neut % (Auto) 75.9 % H %
[2021-05-04] MEDS: ceFAZolin SODIUM 1 GM VIAL 2 GM IV PUSH (13:06)
--- NOTE | 2021-05-04 13:17 | SUR.OPER ---
Specimen sent with JOSUE Owusu @13:13 and given to Natalie in Lab @ 13:17.
[2021-05-04] MEDS: BUPIVACAINE/EPINEPHRINE 0.5% 30 ML VIAL INFILTRATE (14:02)
--- NOTE | 2021-05-04 14:28 | W.PM.PROC2 ---
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 She has been treated with wound care up to this point. She has wound at the distal aspect of the amputation stump that is nonhealing and probes to bone. She has been medically optimized and presents now for revision of her left below-knee amputation. Findings 8 mm ulcer which probes to the distal tibia with mild purulent drainage. 7 mm ulcer which probes to the subcutaneous tissue on the more medial aspect of the stump. No evidence of osteomyelitis. Description of Procedure What was done: Patient identified in the preoperative holding. Informed consent given. Operative extremity marked. Patient received intravenous antibiotics. Patient brought to the operating room where underwent general anesthetic by anesthesia team. Positioned supine on operating room table. Time-out performed confirming the patient, site of the surgery and the plan. Leg then prepped and draped usual sterile surgical fashion using Betadine prep solution. Calf and leg exsanguinated and a thigh tourniquet inflated to 250 mmHg. Anatomic landmarks mapped out on the skin to allow for a posterior flap and approximately 12 cm of tibia below the tibial tubercle. Skin incision made with a 10 blade knife. Incision was made and away to ellipse the 2 ulcers on the distal aspect which were then excised. Hemostasis controlled electrocautery. Cautery dissection carried down circumferentially through the fascia. Dissection then carried around the proximal fibula, retractors placed and sagittal saw used to transect the fibula. Elevator used to dissect soft tissue off of the tibia. The distal aspect of the tibia was noted to be just below the skin surface. Tibia once again measured and the tibia osteotomy performed with a sagittal saw with retractors posterior to protect the soft tissue. Saphenous vessels and peroneal vessels were identified and ligated with 2 0 silk suture. The peroneal nerve and saphenous nerve identified and anesthetized with 0.5% Marcaine with epinephrine and ligated. Tibia was then brought forward And soft tissue was elevated off the posterior aspect. Approximately 3.5 cm of tibia was resected and passed off as specimen. Tibial artery identified and ligated with 2 0 silk suture. Tibial nerve identified and anesthetized with 0.5% Marcaine with epinephrine and ligated. Any other bleeding points coagulated with cautery. The tourniquet was then released. Any further bleeding was controlled with cautery or 2 0 silk suture ligation. After thorough hemostasis the wound was thoroughly irrigated with solution. The anterior cortex of the tibia was shaped with the saw to reduce pressure. Thorough irrigation again performed. Myodesis was then performed of the gastrocnemius over the distal tibia using #2 Ethibond suture placed through trans osseous holes in the distal tibia. Fascia then repaired with 0 Vicryl interrupted suture. Subcutaneous tissue repaired with 2 Vicryl 3 0 Monocryl interrupted suture and skin repaired with 3 O nylon interrupted suture. Sterile dressing followed by wound VAC dressing. Patient awoken from anesthesia, extubated and taken to recovery room in stable condition. All sponge needle and instrument counts correct at the end of the case Estimated Blood Loss -100.0 Tourniquet Time 25 Urine Output 1,000 Drains No Packing No Pathology yes ( Distal tibia) Complications None Condition stable Disposition PACU
[2021-05-04] MEDS: fentaNYL CITRATE INJ (*CRX) 100 MCG/2 ML VIAL 25 MCG IV PUSH ×2 (14:32→14:44)
[2021-05-04 14:49] LABS: Glucose Point of Care 87 mg/dl (65-105)
[2021-05-04] MEDS: ACETAMINOPHEN 500 MG TABLET 1000 MG PO (15:29)
--- NOTE | 2021-05-04 16:00 | PC.NURSE ---
Returned from OR wound vac in place
[2021-05-04] MEDS: HYDROmorphone HCL INJ (*CRX) 1 MG/ML SYR 0.5 MG IV PUSH ×2 (16:28→20:10)
[2021-05-04 16:53] LABS: Glucose Point of Care 139 mg/dl (65-105)
[2021-05-04] MEDS: guaiFENesin 12 HR 600 MG TABCR PO (20:25)
[2021-05-04] MEDS: ATORVASTATIN 40 MG TABLET PO (20:25)
[2021-05-04] MEDS: DOCUSATE SODIUM 100 MG CAPSULE PO (20:25)
[2021-05-04] MEDS: INSULIN GLARGINE (*BKC) 100 UNITS/ML 20 UNITS SUB-Q (20:29)
[2021-05-04 21:46] LABS: Vancomycin Trough 15.5 ug/mL (10.0-20.0)
[2021-05-04 23:13] LABS: Glucose Point of Care 214 mg/dl (65-105)
[2021-05-05] VITALS (9 sets, daily range): BP systolic 102–121; BP diastolic 45–56; PULSE 67–83; RESP 18–20; TEMP 36.1–36.4; O2SAT 98–100
[2021-05-05] MEDS: HYDROmorphone HCL INJ (*CRX) 1 MG/ML SYR 0.5 MG IV PUSH ×2 (00:28→04:21)
[2021-05-05 05:47] LABS: Basophils Absolute Auto 0.1 K/mm3 (0.0-0.1); Basophils Percent Auto 0.6 % (0.2-1.2); Eosinophils Percent Auto 0.1 % (0-4.4); Hematocrit 31.1 % (37.0-47.0); Hemoglobin 9.2 g/dL (12.0-15.0); Immature Granulocyte Absolute 0.84 K/mm3 (0.00-0.031); Immature Granulocyte Percent A 4.9 % (0-0.5); Lymphocytes Absolute Auto 0.94 K/mm3 (0.9-3.2); Lymphocytes Percent Auto 5.5 % (18.3-44.2); Mean Corpuscular HGB Conc 29.6 g/dl (32-36); Mean Corpuscular Hemoglobin 28.7 pg (26-34); Mean Corpuscular Volume 96.9 fl (80-100); Mean Platelet Volume 10.2 fl (7.4-10.4); Monocytes Absolute Auto 1.3 K/mm3 (0.1-0.6); Monocytes Percent Auto 7.7 % (2.6-8.5); Neutrophils Absolute Auto 13.9 K/mm3 (1.3-6.7); Neutrophils Percent Auto 81.2 % (45.5-73.1); Platelet Count Result 280 k/mm3 (150-375); Red Blood Count 3.21 M/mm3 (4.2-5.4); Red Cell Distribution Width 15.5 % (11.5-14.5); White Blood Count 17.1 K/mm3 (4.5-10.0)
[2021-05-05 06:05] LABS: Alanine Aminotransferase 23 U/L (4-35); Albumin Level 3.4 g/dL (3.5-5.1); Alkaline Phosphatase 147 U/L (38-126); Anion Gap 4 mmol/L (8-16); Aspartate Amino Transferase 30 U/L (14-36); Bilirubin,Total 0.5 mg/dL (0.2-1.3); Blood Urea Nitrogen 23 mg/dL (7-17); Calcium 8.8 mg/dL (8.4-10.2); Carbon Dioxide 33 mmol/L (22-30); Chloride 97 mmol/L (98-107); Estimated CRCL calculation 44 ml/min; Estimated Glomerular Filt Rate 48; Glucose 217 mg/dL (65-105); Magnesium 2.1 mg/dL (1.6-2.3); Potassium 4.9 mmol/L (3.4-5.0); Sodium 134 mmol/L (137-145)
--- NOTE | 2021-05-05 08:02 | PM.PNORT ---
Progress Note: A&P Assessment and Plan (1) Amputation stump infection: Code(s): T87.40 - Infection of amputation stump, unspecified extremity Status: Acute Assessment and Plan: POD #1: Left BKA Revision Continue IV antibiotics. Surgical pathology pending currently. Monitor wound VAC dressing. Chamber changed this AM by wound clinic nurses. If continued output, may transition to large wound VAC for increased suction and output management. Elevate stump on pillows. Pain control. Will continue to monitor. (2) Wound dehiscence: Code(s): T81.30XA - Disruption of wound, unspecified, initial encounter Status: Acute (3) Pressure ulcer of BKA stump: Code(s): T87.89 - Other complications of amputation stump; L89.899 - Pressure ulcer of other site, unspecified stage Status: Acute Subjective Subjective Date/Time Seen: 05/05/21 08:02 POD #1: Revision Left BKA Pain well controlled. Prevena wound VAC chamber full this AM. No new concerns. Review of Systems Review of Systems: All systems reviewed & are unremarkable except as noted in HPI and below Exam Const: General: healthy appearing; No in distress or confusion Orientation/consciousness: patient oriented x3 and No confusion HENMT: Head: normal to inspection, normocephalic and atraumatic Eyes: Conjunctivae: conjunctivae normal Sclera: sclerae normal Resp: Effort & Inspection: normal respiratory effort and no audible wheezes Neuro: General: patient oriented x3 and No confusion Extrem: Left lower extremity: knee Details: normal to inspection and normal ROM; no tenderness and no swelling and lower leg (Left BKA ) Details: tenderness (Medial/Lateral BKA wounds ); no erythema and no ecchymosis Other: Left BKA with Prevena WOUND VAC dressing in place. Mild surrounding redness. Mild swelling. Nontender to touch. Dressing intact and functioning but chamber appears to be full. Serosanguineous drainage. ROM of the left knee nontender. Right BKA Psych: Affect: normal affect Objective Data Vital Signs Vital Signs: Vital Signs - 24 hr 05/04/21 08:21 05/04/21 08:30 05/04/21 09:29 Temperature 36.5 C Pulse Rate 72 66 72 Respiratory Rate 18 20 Blood Pressure 143/54 H Pulse Oximetry 100 05/04/21 09:30 05/04/21 10:49 05/04/21 14:09 Temperature 36.5 C 36.9 C Pulse Rate 74 65 61 Respiratory Rate 20 16 20 Blood Pressure 124/56 L 114/54 L Pulse Oximetry 93 100 96 05/04/21 14:20 05/04/21 14:35 05/04/21 14:50 Temperature Pulse Rate 62 62 63 Respiratory Rate 12 16 15 Blood Pressure 114/50 L 122/48 L 111/43 L Pulse Oximetry 93 93 93 05/04/21 15:05 05/04/21 15:20 05/04/21 15:35 Temperature Pulse Rate 65 63 62 Respiratory Rate 20 18 12 Blood Pressure 101/38 L 107/36 L 102/52 L Pulse Oximetry 92 94 05/04/21 16:00 05/04/21 16:15 05/04/21 16:42 Temperature 35.6 C L 35.8 C L Pulse Rate 65 69 72 Respiratory Rate 18 16 Blood Pressure 103/81 104/52 L Pulse Oximetry 94 91 05/04/21 16:45 05/04/21 17:45 05/04/21 17:53 Temperature 35.6 C L 35.7 C L Pulse Rate 68 67 73 Respiratory Rate 16 16 18 Blood Pressure 96/27 L 93/22 L Pulse Oximetry 100 96 96 05/04/21 20:00 05/04/21 21:26 05/04/21 22:25 Temperature 36.4 C Pulse Rate 70 72 Respiratory Rate 20 Blood Pressure 142/60 H Pulse Oximetry 95 94 95 05/05/21 00:52 05/05/21 05:26 Temperature 36.1 C L 36.2 C L Pulse Rate 67 73 Respiratory Rate 20 20 Blood Pressure 118/52 L 114/54 L Pulse Oximetry 99 98 Intake/Output Intake/Output: Intake & Output 05/02/21 05/03/21 05/04/21 05/05/21 23:59 23:59 23:59 23:59 Intake Total 550 3340 2040 1300 Output Total 1800 1000 Balance 550 1540 1040 1300 Meds/Results Medications: Active Medications Generic Name Dose Route Start Last Admin Trade Name Freq PRN Reason Stop Dose Admin Acetaminophen 500 mg 05/02/21 22:59 Acetaminophen 500 Mg Tablet PO Q6H PRN
[2021-05-05 08:53] LABS: Glucose Point of Care 213 mg/dl (65-105)
--- NOTE | 2021-05-05 09:21 | WPDANESPN ---
Anes - Prog Note Post-Op Date/Time: 05/05/21 09:21 Cardiovascular status: normal Respiratory status: normal Airway patency: baseline Mental status: baseline Post-Op hydration status: normal Vital Signs: Last Vital Signs Temp 36.2 C L 05/05/21 05:26 Pulse 73 05/05/21 05:26 Resp 20 05/05/21 05:26 BP 114/54 L 05/05/21 05:26 Pulse Ox 98 05/05/21 05:26 Pain Score (VAS): 10/30 I/O: Intake & Output 05/04/21 05/05/21 05/05/21 23:59 07:59 15:59 Intake Total 940 1300 Balance 940 1300 Laboratory Tests 05/05/21 05:33 05/05/21 05:33 05/04/21 05/04/21 05/04/21 14:18 16:40 20:28 WBC RBC Hgb Hct MCV MCH MCHC RDW Plt Count MPV Immature Gran % (Auto) Neut % (Auto) Lymph % (Auto) Mills % (Auto) Eos % (Auto) Baso % (Auto) Lymph # (Auto) [place] # (Auto) Eos # (Auto) Baso # (Auto) Abs Immat Gran (auto) Absolute Neuts (auto) Absolute Nucleated RBC Nucleated RBC % Sodium Potassium Chloride Carbon Dioxide Anion Gap BUN Creatinine Estim Creat Clear Calc Estimated GFR Glucose POC Capillary Glucose 87 139 H 214 H Calcium Magnesium Total Bilirubin AST ALT Alkaline Phosphatase Total Protein Albumin Vancomycin Trough 05/04/21 05/05/21 05/05/21 20:58 05:33 05:33 WBC 17.1 H RBC 3.21 L Hgb 9.2 L Hct 31.1 L MCV 96.9 MCH 28.7 MCHC 29.6 L RDW 15.5 H Plt Count 280 MPV 10.2 Immature Gran % (Auto) 4.9 H Neut % (Auto) 81.2 H Lymph % (Auto) 5.5 L Mills % (Auto) 7.7 Eos % (Auto) 0.1 Baso % (Auto) 0.6 Lymph # (Auto) 0.94 Mills # (Auto) 1.3 H Eos # (Auto) 0.0 Baso # (Auto) 0.1 Abs Immat Gran (auto) 0.84 H Absolute Neuts (auto) 13.9 H Absolute Nucleated RBC 0.0 Nucleated RBC % 0.0 Sodium 134 L Potassium 4.9 Chloride 97 L Carbon Dioxide 33 H Anion Gap 4 L BUN 23 H Creatinine 1.10 H Estim Creat Clear Calc 44 Estimated GFR 48 L Glucose 217 H POC Capillary Glucose Calcium 8.8 Magnesium 2.1 Total Bilirubin 0.5 AST 30 ALT 23 Alkaline Phosphatase 147 H Total Protein 6.0 L Albumin 3.4 L Vancomycin Trough 15.5 05/05/21 08:48 WBC RBC Hgb Hct MCV MCH MCHC RDW Plt Count MPV Immature Gran % (Auto) Neut % (Auto) Lymph % (Auto) Mills % (Auto) Eos % (Auto) Baso % (Auto) Lymph # (Auto) Mills # (Auto) Eos # (Auto) Baso # (Auto) Abs Immat Gran (auto) Absolute Neuts (auto) Absolute Nucleated RBC Nucleated RBC % Sodium Potassium Chloride Carbon Dioxide Anion Gap BUN Creatinine Estim Creat Clear Calc Estimated GFR Glucose POC Capillary Glucose 213 H Calcium Magnesium Total Bilirubin AST ALT Alkaline Phosphatase Total Protein Albumin Vancomycin Trough Microbiology 05/02/21 15:53 Tibia Left Wound Culture - Preliminary Staphylococcus aureus Post-procedural complaints: none Patient Feedback: Patient satisfied with anesthetic care.
--- NOTE | 2021-05-05 09:48 | PM.PNORT ---
Progress Note: A&P Assessment and Plan (1) Amputation stump infection: Code(s): T87.40 - Infection of amputation stump, unspecified extremity Status: Acute Assessment and Plan: Revision left below-knee amputation. Incisional wound VAC in place. Will order stump protector. PT/OT. Continue with IV antibiotics. Subjective Subjective Date/Time Seen: 05/05/21 09:48 Post Op day: 1 Principal diagnosis: left below-knee amputation Interval history: operative findings reviewed with the patient. Revision of left below-knee amputation. Prominence of the tibia at the subcutaneous tissue communication with the ulcer explained. Incisional wound VAC dressing in place. Patient states pain overnight but better this morning. Exam Const: General: healthy appearing; No in distress or confusion Orientation/consciousness: patient oriented x3 and No confusion HENMT: Head: normal to inspection, normocephalic and atraumatic Eyes: Conjunctivae: conjunctivae normal Sclera: sclerae normal Resp: Effort & Inspection: normal respiratory effort and no audible wheezes Neuro: General: patient oriented x3 and No confusion Extrem: Left lower extremity: lower leg ( incisional wound VAC in place. One canister filled.) Details: other Psych: Affect: normal affect Objective Data Vital Signs Vital Signs: Vital Signs - 24 hr 05/04/21 10:49 05/04/21 14:09 05/04/21 14:20 Temperature 97.7 F 98.4 F Pulse Rate 65 61 62 Respiratory Rate 16 20 12 Blood Pressure 124/56 L 114/54 L 114/50 L Pulse Oximetry 100 96 93 05/04/21 14:35 05/04/21 14:50 05/04/21 15:05 Temperature Pulse Rate 62 63 65 Respiratory Rate 16 15 20 Blood Pressure 122/48 L 111/43 L 101/38 L Pulse Oximetry 93 93 92 05/04/21 15:20 05/04/21 15:35 05/04/21 16:00 Temperature 96.1 F L Pulse Rate 63 62 65 Respiratory Rate 18 12 18 Blood Pressure 107/36 L 102/52 L 103/81 Pulse Oximetry 94 94 05/04/21 16:15 05/04/21 16:42 05/04/21 16:45 Temperature 96.5 F L 96.0 F L Pulse Rate 69 72 68 Respiratory Rate 16 16 Blood Pressure 104/52 L 96/27 L Pulse Oximetry 91 100 05/04/21 17:45 05/04/21 17:53 05/04/21 20:00 Temperature 96.3 F L Pulse Rate 67 73 Respiratory Rate 16 18 Blood Pressure 93/22 L Pulse Oximetry 96 96 95 05/04/21 21:26 05/04/21 22:25 05/05/21 00:52 Temperature 97.6 F 96.9 F L Pulse Rate 70 72 67 Respiratory Rate 20 20 Blood Pressure 142/60 H 118/52 L Pulse Oximetry 94 95 99 05/05/21 05:26 Temperature 97.2 F L Pulse Rate 73 Respiratory Rate 20 Blood Pressure 114/54 L Pulse Oximetry 98 Intake/Output Intake/Output: Intake & Output 05/02/21 05/03/21 05/04/21 05/05/21 23:59 23:59 23:59 23:59 Intake Total 550 3340 2040 1300 Output Total 1800 1000 Balance 550 1540 1040 1300 Meds/Results Medications: Active Medications Generic Name Dose Route Start Last Admin Trade Name Freq PRN Reason Stop Dose Admin Acetaminophen 500 mg 05/02/21 22:59 Acetaminophen 500 Mg Tablet PO Q6H PRN Pain Rated 1-3 Albuterol 2.5 mg 05/03/21 01:20 Albuterol Sulfate Neb 2.5 Mg/0.5 Ml Inh INHALATION Q6H PRN Shortness Of Breath Amiodarone HCl 200 mg 05/03/21 08:00 05/04/21 08:21 Amiodarone Hcl 200 Mg Tablet PO 200 mg DAILY@0800 NEW Administration Artificial Tears 1 drop 05/03/21 09:00 05/04/21 16:42 Artificial Tears Ophth Soln 15 Ml Bottle EACH EYE 1 drop BID NEW Administration Atorvastatin Calcium 40 mg 05/03/21 21:00 05/04/21 20:25 Atorvastatin 40 Mg Tablet PO 40 mg HS NEW Administration Budesonide 0.5 mg 05/03/21 08:00 05/04/21 17:53 Budesonide Respule Neb 0.5 Mg/2 Ml Amp INHALATION 0.5 mg Q12HRT NEW Administration Carvedilol 3.125 mg 05/03/21 08:00 05/04/21 16:42 Carvedilol 3.125 Mg Tablet PO 3.125 mg BIDWM NEW Administration Dextrose 12.5 gm 05/02/21 22:56 Dextrose 50% 25 Gm/50 Ml Syringe IV PUSH PRN PRN
[2021-05-05] MEDS: BUDESONIDE RESPULE NEB 0.5 MG/2 ML AMP INHALATION ×2 (09:49→17:46)
[2021-05-05] MEDS: FLUTICASONE/SALMETEROL 115-21 MCG INHALER 1 PUFF 2 PUFF INHALATION ×2 (09:50→17:47)
[2021-05-05] MEDS: INSULIN ASPART (*BKC) 100 UNITS/ML 6 UNITS SUB-Q ×3 (09:50→17:22)
[2021-05-05] MEDS: INSULIN ASPART (*BKC) 100 UNITS/ML SUB-Q ×3 (09:51→17:23)
[2021-05-05] MEDS: DOCUSATE SODIUM 100 MG CAPSULE PO ×2 (10:00→21:19)
[2021-05-05] MEDS: PANTOPRAZOLE 40 MG TABLET PO (10:00)
[2021-05-05] MEDS: guaiFENesin 12 HR 600 MG TABCR PO ×2 (10:01→21:19)
[2021-05-05] MEDS: ENOXAPARIN 40 MG/0.4 ML SYRINGE SUB-Q (10:01)
[2021-05-05] MEDS: AMIODARONE HCL 200 MG TABLET PO (10:01)
[2021-05-05] MEDS: FUROSEMIDE 20 MG TABLET PO (10:01)
[2021-05-05] MEDS: POTASSIUM CHLORIDE 20 MEQ TABLET.ER PO (10:01)
[2021-05-05] MEDS: POLYSACCHARIDE IRON COMPLEX 150 MG CAPSULE PO (10:01)
[2021-05-05] MEDS: ARTIFICIAL TEARS OPHTH SOLN 15 ML BOTTLE 1 DROP EACH EYE ×2 (10:02→17:23)
[2021-05-05] MEDS: carvediloL 3.125 MG TABLET PO ×2 (10:02→17:23)
[2021-05-05] MEDS: INSULIN GLARGINE (*BKC) 100 UNITS/ML 30 UNITS SUB-Q (10:32)
[2021-05-05] MEDS: ACETAMINOPHEN 500 MG TABLET PO (10:32)
--- NOTE | 2021-05-05 11:37 | P.PNIM_ITS ---
Progress Note: A&P Assessment and Plan (1) Amputation stump infection: Code(s): T87.40 - Infection of amputation stump, unspecified extremity Status: Acute Assessment and Plan: * CT showed tibial stump suspicious of osteomyelitis * 3 wounds present 0.5 x 0.5 scabbed outer lateral 0.5 mining with purulent drainage * Dr. Huerta has been consulted thank you for your support * surgical procedure done yesterday wound VAC attached * Imipenem 500mg IV q8hr, vancomycin 1500 mg q.18 hours * wbc's 12.2 today * wound nurse consulted thank you for your help * wound nurse will instruct about dressing changes * trend WBCs * labs in the a.m. 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 (2) Insulin dependent type 2 diabetes mellitus: Code(s): E11.9 - Type 2 diabetes mellitus without complications; Z79.4 - MCFP (current) use of insulin Status: Acute Assessment and Plan: * A1c 6.5, glucose 217 per labs, POC glucose 213 * continue home Lantus 30 units q.a.m., Lantus 20 units q.h.s. * continue home aspart 6 units with meals * initiate sliding scale * hypoglycemic protocol * trend labs * labs in the a.m. * adjust medications as needed (3) Chronic kidney disease: Code(s): N18.9 - Chronic kidney disease, unspecified Status: Acute Assessment and Plan: * BUN /creatinine 23/1.10 today GFR 48, seems to be correcting at this time * limit the use of nephrotoxic medications * give medications per renal dosing * trend BUN and creatinine * labs in the a.m. (4) Chronic anemia: Code(s): D64.9 - Anemia, unspecified Status: Acute Assessment and Plan: * H/H 9.2/31.1 MCV normal at 95.2 * stable at this time * trend labs * labs in the a.m. * transfuse as needed (5) Chronic obstructive pulmonary disease: Code(s): J44.9 - Chronic obstructive pulmonary disease, unspecified Status: Acute Assessment and Plan: * no signs and symptoms of exacerbation * Pulmicort nebs Q 12 scheduled, Advair inhaler 2 puffs Q 12, albuterol nebs Q 6 p.r.n., Atrovent q.6 p.r.n. * supplemental oxygen to maintain SpO2 greater than 90%, chronic home O2 use at 2 L (6) Congestive heart failure: Code(s): I50.9 - Heart failure, unspecified Status: Acute Assessment and Plan: * stable at this time * no edema noted * EF 55-60%, pulmonary hypertension on echo from 09/2020 * continue home Lasix 20 mg p.o. daily, carvedilol 3.125 mg p.o. b.i.d. * trend I&Os * adjust medications as needed (7) Paroxysmal atrial fibrillation: Onset Date: 09/2020 Code(s): I48.0 - Paroxysmal atrial fibrillation Status: Acute Assessment and Plan: * chronic * EKG from December shows sinus rhythm in the 90s * current heart rate is controlled at 72 * continue home amiodarone 200 mg p.o. daily, continue carvedilol 3.125 p.o. b.i.d. * monitor for any changes Subjective Date/time seen: 05/05/21 08:28 Interval history: patient is a 81-year-old female with a past medical history of coronary artery d
--- NOTE | 2021-05-05 11:37 | PM.IMPN ---
Progress Note: A&P Assessment and Plan (1) Amputation stump infection: Code(s): T87.40 - Infection of amputation stump, unspecified extremity Status: Acute Assessment and Plan: CT showed tibial stump suspicious of osteomyelitis 3 wounds present 0.5 x 0.5 scabbed outer lateral 0.5 mining with purulent drainage Dr. Huerta has been consulted thank you for your support surgical procedure done yesterday wound VAC attached Imipenem 500mg IV q8hr, vancomycin 1500 mg q.18 hours wbc's 12.2 today wound nurse consulted thank you for your help wound nurse will instruct about dressing changes trend WBCs labs in the a.m. wound cultures found MRSA blood cultures no growth to date infectious disease consulted thank you for your recommendations diabetic carb consistent diet DVT, Lovenox 40 mg daily Care coordination has been consulted to find a board for the wheel chair to help with healing. (2) Insulin dependent type 2 diabetes mellitus: Code(s): E11.9 - Type 2 diabetes mellitus without complications; Z79.4 - director long term care (current) use of insulin Status: Acute Assessment and Plan: A1c 6.5, glucose 217 per labs, POC glucose 213 continue home Lantus 30 units q.a.m., Lantus 20 units q.h.s. continue home aspart 6 units with meals initiate sliding scale hypoglycemic protocol trend labs labs in the a.m. adjust medications as needed (3) Chronic kidney disease: Code(s): N18.9 - Chronic kidney disease, unspecified Status: Acute Assessment and Plan: BUN /creatinine 23/1.10 today GFR 48, seems to be correcting at this time limit the use of nephrotoxic medications give medications per renal dosing trend BUN and creatinine labs in the a.m. (4) Chronic anemia: Code(s): D64.9 - Anemia, unspecified Status: Acute Assessment and Plan: H/H 9.2/31.1 MCV normal at 95.2 stable at this time trend labs labs in the a.m. transfuse as needed (5) Chronic obstructive pulmonary disease: Code(s): J44.9 - Chronic obstructive pulmonary disease, unspecified Status: Acute Assessment and Plan: no signs and symptoms of exacerbation Pulmicort nebs Q 12 scheduled, Advair inhaler 2 puffs Q 12, albuterol nebs Q 6 p.r.n., Atrovent q.6 p.r.n. supplemental oxygen to maintain SpO2 greater than 90%, chronic home O2 use at 2 L (6) Congestive heart failure: Code(s): I50.9 - Heart failure, unspecified Status: Acute Assessment and Plan: stable at this time no edema noted EF 55-60%, pulmonary hypertension on echo from 09/2020 continue home Lasix 20 mg p.o. daily, carvedilol 3.125 mg p.o. b.i.d. trend I&Os adjust medications as needed (7) Paroxysmal atrial fibrillation: Onset Date: 09/2020 Code(s): I48.0 - Paroxysmal atrial fibrillation Status: Acute Assessment and Plan: chronic EKG from December shows sinus rhythm in the 90s current heart rate is controlled at 72 continue home amiodarone 200 mg p.o. daily, continue carvedilol 3.125 p.o. b.i.d. monitor for any changes Subjective Date/time seen: 05/05/21 08:28 Interval history: patient is a 81-year-old female with a past medical history of coronary artery disease, PVD, diabetes, chronic respiratory failure on oxygen, congestive heart failure, hypertension, and hyperlipidemia who presented the ED from [facility] for evaluation of wound present on left amputation site. at the time of arrival patient was working with OT was trying to get into the chair. patient stated that she had no pain right at the moment however she has did just get a pain pill. I did ask the patient if she felt any better and she said she did. The only complaint this patient had was that she was hungry and stated that nobody has fed her since she h
[2021-05-05 12:04] LABS: Glucose Point of Care 284 mg/dl (65-105)
[2021-05-05] MEDS: traMADol/ACETAMINOPHEN (*CRX) (ULTRACET) 37.5/325 MG TABLET 1 TAB PO (16:55)
[2021-05-05 17:15] LABS: Glucose Point of Care 205 mg/dl (65-105)
--- NOTE | 2021-05-05 19:58 | WPDCN ---
Assessment and Plan Additional Plan 1. left BKA stump site infection with wound dehiscence and possible osteomyelitis on x-ray. Blood culture x2 sets are so far negative from 05/02/2021. wound culture from 05/02/2021 showed MRSA. Not clear whether intraoperative cultures were collected Especially from bone or tissue which would have been much more helpful. At this point patient has been empirically started on imipenem and vancomycin will continue for now. do not anticipate prolonged IV antibiotics therapy. 2. Type 2 diabetes recommend tight glycemic control 3. Peripheral vascular disease. Will monitor wound site carefully. 4. Date of service 05/05/2021 [facility] Data of Consult Date/Time: 05/05/21 19:58 Requesting Physician: Hipolito Sauceda MD Primary Care Provider: Heron Butler, Consult Narrative Narrative: Owen Escobar is a 81 year old female with significant past medical history for coronary artery disease, type 2 diabetes insulin dependent, peripheral vascular disease, chronic respiratory failure, congestive heart failure, hyperlipidemia, presented to the emergency room on 05/02/2021 left stump site drainage. Apparently she was being followed as an outpatient for dehisced left stump site. Patient developed significant pain to the site as well as increased drainage. X-ray of the stump site showed findings concerning for osteomyelitis. Patient was started on IV Imipenem and vancomycin. Wound cultures currently growing MRSA. Infectious disease consult was requested due to an elevated white count as well as antibiotics recommendation. Patient is status post revision of stump postoperative day 1. White count prior to surgery was at 12,000. currently she is afebrile. Review of Systems Review of Systems: Narrative: All 14 point review of system with normal except what mentioned in HPI [facility] Past Medical History Medical History C. difficile colitis Chronic anemia Chronic kidney disease Chronic obstructive pulmonary disease Congestive heart failure Echocardiogram August 2020: EF of 55-60%, technically difficult to study, diastolic function abnormal, right ventricular systolic function mildly reduced, [id number] tricuspid valve regurgitation, moderate pulmonary hypertension. Coronary artery disease Depression High cholesterol Hypertension Hypothyroidism Insulin dependent type 2 diabetes mellitus Hemoglobin A1c was 10.3% in August 2020. Left bundle branch block Moderate pulmonary hypertension Neuropathy NSTEMI (non-ST elevated myocardial infarction) (09/23/20) Osteomyelitis of left foot Paroxysmal atrial fibrillation (09/2020) Peripheral arterial occlusive disease Right-sided heart failure Noted on echocardiogram August 2020 with mildly reduced right ventricular systolic function. Surgical History Surgical History 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 Postop complication of wound dehiscence with wound VAC placement November 2020 History of coronary artery bypass graft x 3 (~2004) History of right below knee amputation (~08/2015) History of transmetatarsal amputation of left foot transmetatarsal amputations at the necks of the 2nd/3rd Status post cataract extraction of both eyes with insertion of intraocular lens Family History Family History Sibling Family history of cardiovascular disease Diabetes mellitus Family history of arthritis Father History of heart attack Heart attack Mother Skin cancer Sibling Diabetes mellitus Other Hypertension Social History Social History Social History: Surrogate decision maker: Janessa Rubio, granddaughter. Code status: Full code. Terrie
[2021-05-05] MEDS: ATORVASTATIN 40 MG TABLET PO (21:19)
[2021-05-05] MEDS: INSULIN GLARGINE (*BKC) 100 UNITS/ML 20 UNITS SUB-Q (21:19)
[2021-05-05 22:05] LABS: Glucose Point of Care 242 mg/dl (65-105)
[2021-05-05] MEDS: CALCIUM CARBONATE (TUMS) 500 MG (200 MG ELEMENTAL) PO (22:20)
[2021-05-06] VITALS (11 sets, daily range): BP systolic 110–122; BP diastolic 50–53; PULSE 68–73; RESP 16–22; TEMP 36–36.1; O2SAT 96–100
[2021-05-06] MEDS: traMADol/ACETAMINOPHEN (*CRX) (ULTRACET) 37.5/325 MG TABLET 1 TAB PO ×3 (01:54→20:36)
[2021-05-06 05:59] LABS: Basophils Absolute Auto 0.2 K/mm3 (0.0-0.1); Basophils Percent Auto 1.5 % (0.2-1.2); Eosinophils Absolute Auto 0.3 K/mm3 (0-0.3); Eosinophils Percent Auto 2.1 % (0-4.4); Hematocrit 28.3 % (37.0-47.0); Hemoglobin 8.4 g/dL (12.0-15.0); Immature Granulocyte Percent A 5.2 % (0-0.5); Lymphocytes Absolute Auto 1.32 K/mm3 (0.9-3.2); Lymphocytes Percent Auto 9.8 % (18.3-44.2); Mean Corpuscular HGB Conc 29.7 g/dl (32-36); Mean Corpuscular Volume 97.6 fl (80-100); Mean Platelet Volume 10.3 fl (7.4-10.4); Monocytes Absolute Auto 1.3 K/mm3 (0.1-0.6); Monocytes Percent Auto 9.3 % (2.6-8.5); Neutrophils Absolute Auto 9.8 K/mm3 (1.3-6.7); Neutrophils Percent Auto 72.1 % (45.5-73.1); Platelet Count Result 241 k/mm3 (150-375); Red Cell Distribution Width 15.7 % (11.5-14.5); White Blood Count 13.5 K/mm3 (4.5-10.0)
[2021-05-06 06:19] LABS: Alanine Aminotransferase 18 U/L (4-35); Albumin Level 3.3 g/dL (3.5-5.1); Alkaline Phosphatase 155 U/L (38-126); Anion Gap 5 mmol/L (8-16); Aspartate Amino Transferase 31 U/L (14-36); Bilirubin,Total 0.4 mg/dL (0.2-1.3); Blood Urea Nitrogen 27 mg/dL (7-17); Calcium 8.7 mg/dL (8.4-10.2); Carbon Dioxide 31 mmol/L (22-30); Chloride 98 mmol/L (98-107); Estimated CRCL calculation 44 ml/min; Estimated Glomerular Filt Rate 48; Glucose 146 mg/dL (65-110); Magnesium 2.2 mg/dL (1.6-2.3); Potassium 4.8 mmol/L (3.4-5.0); Sodium 134 mmol/L (137-145)
[2021-05-06] MEDS: BUDESONIDE RESPULE NEB 0.5 MG/2 ML AMP INHALATION ×2 (07:42→21:47)
[2021-05-06] MEDS: FLUTICASONE/SALMETEROL 115-21 MCG INHALER 1 PUFF 2 PUFF INHALATION ×2 (07:43→21:47)
[2021-05-06 07:58] LABS: Glucose Point of Care 126 mg/dl (65-105)
--- NOTE | 2021-05-06 08:24 | P.PNIM_ITS ---
Progress Note: A&P Assessment and Plan (1) Amputation stump infection: Code(s): T87.40 - Infection of amputation stump, unspecified extremity Status: Acute Assessment and Plan: * CT showed tibial stump suspicious of osteomyelitis * 3 wounds present 0.5 x 0.5 scabbed outer lateral 0.5 mining with purulent drainage * Dr. Huerta has been consulted thank you for your support * surgical procedure done yesterday wound VAC attached * Imipenem 500mg IV q8hr, vancomycin 1500 mg q.18 hours * wbc's 13.5 today * wound nurse consulted thank you for your help * wound nurse will instruct about dressing changes * trend WBCs * labs in the a.m. * wound cultures found MRSA * blood cultures no growth to date * infectious disease consulted thank you for your recommendations (Does not see a need for [facility] antibiotics) * diabetic carb consistent diet * DVT, Lovenox 40 mg daily * Care coordination has been consulted to find a board for the wheel chair to help with healing. 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 * continue home aspart 6 units with meals * initiate sliding scale * hypoglycemic protocol * trend labs * labs in the a.m. * adjust medications as needed (3) Chronic kidney disease: Code(s): N18.9 - Chronic kidney disease, unspecified Status: Acute Assessment and Plan: * BUN /creatinine 27/1.10 today GFR 48, seems to be correcting at this time * limit the use of nephrotoxic medications * give medications per renal dosing * trend BUN and creatinine * labs in the a.m. (4) Chronic anemia: Code(s): D64.9 - Anemia, unspecified Status: Acute Assessment and Plan: * H/H 8.4/28.3 MCV normal at 95.2 * stable at this time * trend labs * labs in the a.m. * transfuse as needed (5) Chronic obstructive pulmonary disease: Code(s): J44.9 - Chronic obstructive pulmonary disease, unspecified Status: Acute Assessment and Plan: * no signs and symptoms of exacerbation * Pulmicort nebs Q 12 scheduled, Advair inhaler 2 puffs Q 12, albuterol nebs Q 6 p.r.n., Atrovent q.6 p.r.n. * supplemental oxygen to maintain SpO2 greater than 90%, chronic home O2 use at 2 L (6) Congestive heart failure: Code(s): I50.9 - Heart failure, unspecified Status: Acute Assessment and Plan: * stable at this time * no edema noted * EF 55-60%, pulmonary hypertension on echo from 09/2020 * continue home Lasix 20 mg p.o. daily, carvedilol 3.125 mg p.o. b.i.d. * trend I&Os * adjust medications as needed (7) Paroxysmal atrial fibrillation: Onset Date: 09/2020 Code(s): I48.0 - Paroxysmal atrial fibrillation Status: Acute Assessment and Plan: * chronic * EKG from December shows sinus rhythm in the 90s * current heart rate is controlled at 72 * continue home amiodarone 200 mg p.o. daily, continue carvedilol 3.125 p.o. b.i.d. * monitor for any changes Time Spent With Patient Time with patient: Greater than 35 minutes Subjective Date/time seen:
--- NOTE | 2021-05-06 08:24 | PM.IMPN ---
Progress Note: A&P Assessment and Plan (1) Amputation stump infection: Code(s): T87.40 - Infection of amputation stump, unspecified extremity Status: Acute Assessment and Plan: CT showed tibial stump suspicious of osteomyelitis 3 wounds present 0.5 x 0.5 scabbed outer lateral 0.5 mining with purulent drainage Dr. Huerta has been consulted thank you for your support surgical procedure done yesterday wound VAC attached Imipenem 500mg IV q8hr, vancomycin 1500 mg q.18 hours wbc's 13.5 today wound nurse consulted thank you for your help wound nurse will instruct about dressing changes trend WBCs labs in the a.m. 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 (2) Insulin dependent type 2 diabetes mellitus: Code(s): E11.9 - Type 2 diabetes mellitus without complications; Z79.4 - manager terminal (current) use of insulin Status: Acute Assessment and Plan: A1c 6.5, glucose 146 per labs, POC glucose 126 continue home Lantus 30 units q.a.m., Lantus 20 units q.h.s. continue home aspart 6 units with meals initiate sliding scale hypoglycemic protocol trend labs labs in the a.m. adjust medications as needed (3) Chronic kidney disease: Code(s): N18.9 - Chronic kidney disease, unspecified Status: Acute Assessment and Plan: BUN /creatinine 27/1.10 today GFR 48, seems to be correcting at this time limit the use of nephrotoxic medications give medications per renal dosing trend BUN and creatinine labs in the a.m. (4) Chronic anemia: Code(s): D64.9 - Anemia, unspecified Status: Acute Assessment and Plan: H/H 8.4/28.3 MCV normal at 95.2 stable at this time trend labs labs in the a.m. transfuse as needed (5) Chronic obstructive pulmonary disease: Code(s): J44.9 - Chronic obstructive pulmonary disease, unspecified Status: Acute Assessment and Plan: no signs and symptoms of exacerbation Pulmicort nebs Q 12 scheduled, Advair inhaler 2 puffs Q 12, albuterol nebs Q 6 p.r.n., Atrovent q.6 p.r.n. supplemental oxygen to maintain SpO2 greater than 90%, chronic home O2 use at 2 L (6) Congestive heart failure: Code(s): I50.9 - Heart failure, unspecified Status: Acute Assessment and Plan: stable at this time no edema noted EF 55-60%, pulmonary hypertension on echo from 09/2020 continue home Lasix 20 mg p.o. daily, carvedilol 3.125 mg p.o. b.i.d. trend I&Os adjust medications as needed (7) Paroxysmal atrial fibrillation: Onset Date: 09/2020 Code(s): I48.0 - Paroxysmal atrial fibrillation Status: Acute Assessment and Plan: chronic EKG from December shows sinus rhythm in the 90s current heart rate is controlled at 72 continue home amiodarone 200 mg p.o. daily, continue carvedilol 3.125 p.o. b.i.d. monitor for any changes Time Spent With Patient Time with patient: Greater than 35 minutes Subjective Date/time seen: 05/06/21 07:50 Interval history: Patient is a 81-year-old female with a past medical history of coronary artery disease, PVD, diabetes, chronic respiratory failure on oxygen, congestive heart failure, hypertension, and hyperlipidemia who presented the ED from [facility] for evaluation of wound present on left amputation site. Patient stated that she does have many complaints today however her stump does have pain and she has a 10/10. She stated that she did get a lost some pain medicine to her IV however she feels like pills helps her better. she also has some ed
[2021-05-06] MEDS: POTASSIUM CHLORIDE 20 MEQ TABLET.ER PO (09:17)
[2021-05-06] MEDS: AMIODARONE HCL 200 MG TABLET PO (09:18)
[2021-05-06] MEDS: carvediloL 3.125 MG TABLET PO ×2 (09:18→16:35)
[2021-05-06] MEDS: guaiFENesin 12 HR 600 MG TABCR PO ×2 (09:18→20:19)
[2021-05-06] MEDS: FUROSEMIDE 20 MG TABLET PO (09:18)
[2021-05-06] MEDS: POLYSACCHARIDE IRON COMPLEX 150 MG CAPSULE PO (09:18)
[2021-05-06] MEDS: INSULIN ASPART (*BKC) 100 UNITS/ML 6 UNITS SUB-Q ×3 (09:19→17:35)
[2021-05-06] MEDS: PANTOPRAZOLE 40 MG TABLET PO (09:19)
[2021-05-06] MEDS: ENOXAPARIN 40 MG/0.4 ML SYRINGE SUB-Q (09:19)
[2021-05-06] MEDS: ARTIFICIAL TEARS OPHTH SOLN 15 ML BOTTLE 1 DROP EACH EYE ×2 (09:19→16:34)
[2021-05-06] MEDS: DOCUSATE SODIUM 100 MG CAPSULE PO ×2 (09:19→20:19)
[2021-05-06] MEDS: INSULIN GLARGINE (*BKC) 100 UNITS/ML 30 UNITS SUB-Q (09:21)
--- NOTE | 2021-05-06 09:44 | PM.PNORT ---
Progress Note: A&P Assessment and Plan (1) Amputation stump infection: Code(s): T87.40 - Infection of amputation stump, unspecified extremity Status: Acute Assessment and Plan: POD #1: Left BKA Revision Continue IV antibiotics. Surgical pathology pending. Monitor wound VAC dressing. Chamber full this AM. Transition to large wound VAC for increased suction and output management. Elevate stump on pillows. Pain control. Will continue to monitor. (2) Wound dehiscence: Code(s): T81.30XA - Disruption of wound, unspecified, initial encounter Status: Acute (3) Pressure ulcer of BKA stump: Code(s): T87.89 - Other complications of amputation stump; L89.899 - Pressure ulcer of other site, unspecified stage Status: Acute Subjective Subjective Date/Time Seen: 05/06/21 09:44 Post Op day: 2 Principal diagnosis: LT BKA Interval history: Awake, alert. Pain improving. Cannister filled on [place]. Up to chair yesterday. Exam Const: General: healthy appearing; No in distress or confusion Orientation/consciousness: patient oriented x3 and No confusion HENMT: Head: normal to inspection, normocephalic and atraumatic Eyes: Conjunctivae: conjunctivae normal Sclera: sclerae normal Resp: Effort & Inspection: normal respiratory effort and no audible wheezes Neuro: General: patient oriented x3 and No confusion Extrem: Left lower extremity: lower leg ( incisional wound VAC in place. 2nd canister filled.) Details: other Psych: Affect: normal affect Objective Data Vital Signs Vital Signs: Vital Signs - 24 hr 05/05/21 09:52 05/05/21 10:00 05/05/21 13:33 Temperature 97.0 F L 97.0 F L Pulse Rate 74 78 83 Respiratory Rate 18 20 18 Blood Pressure 121/54 L 117/45 L Pulse Oximetry 100 100 05/05/21 17:47 05/05/21 18:00 05/05/21 20:00 Temperature 97.0 F L Pulse Rate 72 81 Respiratory Rate 18 20 Blood Pressure 102/45 L Pulse Oximetry 99 99 05/05/21 22:13 05/06/21 02:33 05/06/21 07:45 Temperature 97.6 F 96.9 F L Pulse Rate 77 72 Respiratory Rate 18 20 Blood Pressure 108/56 L 121/50 L Pulse Oximetry 99 99 99 05/06/21 07:46 05/06/21 07:48 05/06/21 07:52 Temperature 96.8 F L Pulse Rate 68 71 72 Respiratory Rate 22 H 18 22 H Blood Pressure 116/50 L Pulse Oximetry 100 05/06/21 09:18 Temperature Pulse Rate 72 Respiratory Rate Blood Pressure Pulse Oximetry Intake/Output Intake/Output: Intake & Output 05/03/21 05/04/21 05/05/21 05/06/21 23:59 23:59 23:59 23:59 Intake Total 3340 2040 3870 550 Output Total 1800 1000 750 600 Balance 1540 1040 3120 -50 Meds/Results Medications: Active Medications Generic Name Dose Route Start Last Admin Trade Name Freq PRN Reason Stop Dose Admin Acetaminophen 500 mg 05/02/21 22:59 05/05/21 10:32 Acetaminophen 500 Mg Tablet PO 500 mg Q6H PRN Administration Pain Rated 1-3 Albuterol 2.5 mg 05/03/21 01:20 Albuterol Sulfate Neb 2.5 Mg/0.5 Ml Inh INHALATION Q6H PRN Shortness Of Breath Amiodarone HCl 200 mg 05/03/21 08:00 05/06/21 09:18 Amiodarone Hcl 200 Mg Tablet PO 200 mg DAILY@0800 NEW Administration Artificial Tears 1 drop 05/03/21 09:00 05/06/21 09:19 Artificial Tears Ophth Soln 15 Ml Bottle EACH EYE 1 drop BID NEW Administration Atorvastatin Calcium 40 mg 05/03/21 21:00 05/05/21 21:19 Atorvastatin 40 Mg Tablet PO 40 mg HS NEW Administration Budesonide 0.5 mg 05/03/21 08:00 05/06/21 07:42 Budesonide Respule Neb 0.5 Mg/2 Ml Amp INHALATION 0.5 mg Q12HRT NEW Administration Calcium Carbonate 200 mg 05/05/21 22:00 05/05/21 22:20 Calcium Carbonate (Tums) 500 Mg (200 Mg Elemental) PO 200 mg Q6H PRN Administration Indigestion Carvedilol 3.125 mg 05/03/21 08:00 05/06/21 09:18 Carvedilol 3.125 Mg Tablet PO 3.125 mg BIDWM NEW Administration Dextrose 12.5 gm 05/02/21 22:56 Dextrose 50% 25 Gm/50
[2021-05-06] MEDS: INSULIN ASPART (*BKC) 100 UNITS/ML SUB-Q ×2 (12:30→17:33)
[2021-05-06] MEDS: ACETAMINOPHEN 500 MG TABLET PO (12:37)
[2021-05-06] MEDS: HYDROmorphone HCL INJ (*CRX) 1 MG/ML SYR 0.5 MG IV PUSH (12:39)
[2021-05-06] MEDS: CALCIUM CARBONATE (TUMS) 500 MG (200 MG ELEMENTAL) PO ×2 (13:34→20:25)
[2021-05-06 14:00] LABS: Glucose Point of Care 261 mg/dl (65-105)
[2021-05-06] MEDS: BISACODYL 5 MG TABLET EC PO (16:41)
[2021-05-06 17:39] LABS: Glucose Point of Care 224 mg/dl (65-105)
[2021-05-06] MEDS: ATORVASTATIN 40 MG TABLET PO (20:19)
[2021-05-06] MEDS: INSULIN GLARGINE (*BKC) 100 UNITS/ML 20 UNITS SUB-Q (20:20)
[2021-05-06 21:35] LABS: Glucose Point of Care 243 mg/dl (65-105)
[2021-05-07] VITALS (15 sets, daily range): BP systolic 108–130; BP diastolic 40–55; PULSE 61–88; RESP 14–20; TEMP 36–36.6; O2SAT 95–100
[2021-05-07] MEDS: traMADol/ACETAMINOPHEN (*CRX) (ULTRACET) 37.5/325 MG TABLET 1 TAB PO ×4 (01:45→20:22)
[2021-05-07 05:52] LABS: Hematocrit 28.3 % (37.0-47.0); Hemoglobin 8.5 g/dL (12.0-15.0); Mean Corpuscular Hemoglobin 28.9 pg (26-34); Mean Corpuscular Volume 96.3 fl (80-100); Mean Platelet Volume 10.2 fl (7.4-10.4); Platelet Count Result 250 k/mm3 (150-375); Red Blood Count 2.94 M/mm3 (4.2-5.4); Red Cell Distribution Width 15.9 % (11.5-14.5); White Blood Count 14.1 K/mm3 (4.5-10.0)
[2021-05-07 06:10] LABS: Alanine Aminotransferase 21 U/L (4-35); Albumin Level 3.3 g/dL (3.5-5.1); Alkaline Phosphatase 144 U/L (38-126); Anion Gap 4 mmol/L (8-16); Aspartate Amino Transferase 38 U/L (14-36); Bilirubin,Total 0.4 mg/dL (0.2-1.3); Blood Urea Nitrogen 22 mg/dL (7-17); Calcium 8.6 mg/dL (8.4-10.2); Carbon Dioxide 34 mmol/L (22-30); Chloride 97 mmol/L (98-107); Estimated CRCL calculation 48 ml/min; Estimated Glomerular Filt Rate 53; Glucose 114 mg/dL (65-110); Magnesium 2.2 mg/dL (1.6-2.3); Potassium 4.3 mmol/L (3.4-5.0); Sodium 135 mmol/L (137-145)
--- NOTE | 2021-05-07 07:53 | P.PNIM_ITS ---
Progress Note: A&P Assessment and Plan (1) Amputation stump infection: Code(s): T87.40 - Infection of amputation stump, unspecified extremity Status: Acute Assessment and Plan: * CT showed tibial stump suspicious of osteomyelitis * 3 wounds present 0.5 x 0.5 scabbed outer lateral 0.5 mining with purulent drainage * Dr. Huerta has been consulted thank you for your support * surgical procedure done yesterday wound VAC attached * Imipenem 500mg IV q8hr, vancomycin 1500 mg q.18 hours * wbc's 13.5 today * wound nurse consulted thank you for your help * wound nurse will instruct about dressing changes * trend WBCs * labs in the a.m. * wound cultures found MRSA * blood cultures no growth to date * infectious disease consulted thank you for your recommendations (Does not see a need for nursing home antibiotics) * diabetic carb consistent diet * DVT, Lovenox 40 mg daily * Care coordination has been consulted to find a board for the wheel chair to help with healing. 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 * continue home aspart 6 units with meals * initiate sliding scale * hypoglycemic protocol * trend labs * labs in the a.m. * adjust medications as needed (3) Chronic kidney disease: Code(s): N18.9 - Chronic kidney disease, unspecified Status: Acute Assessment and Plan: * BUN /creatinine 22/1.00 today GFR 48, seems to be correcting at this time * limit the use of nephrotoxic medications * give medications per renal dosing * trend BUN and creatinine * labs in the a.m. (4) Chronic anemia: Code(s): D64.9 - Anemia, unspecified Status: Acute Assessment and Plan: * H/H 8.5/28.3 MCV normal at 96.3 * stable at this time * trend labs * labs in the a.m. * transfuse as needed (5) Chronic obstructive pulmonary disease: Code(s): J44.9 - Chronic obstructive pulmonary disease, unspecified Status: Acute Assessment and Plan: * no signs and symptoms of exacerbation * Pulmicort nebs Q 12 scheduled, Advair inhaler 2 puffs Q 12, albuterol nebs Q 6 p.r.n., Atrovent q.6 p.r.n. * supplemental oxygen to maintain SpO2 greater than 90%, chronic home O2 use at 2 L (6) Congestive heart failure: Code(s): I50.9 - Heart failure, unspecified Status: Acute Assessment and Plan: * stable at this time * no edema noted * EF 55-60%, pulmonary hypertension on echo from 09/2020 * continue home Lasix 20 mg p.o. daily, carvedilol 3.125 mg p.o. b.i.d. * trend I&Os * adjust medications as needed (7) Paroxysmal atrial fibrillation: Onset Date: 09/2020 Code(s): I48.0 - Paroxysmal atrial fibrillation Status: Acute Assessment and Plan: * chronic * EKG from December shows sinus rhythm in the 90s * current heart rate is controlled at 63 * continue home amiodarone 200 mg p.o. daily, continue carvedilol 3.125 p.o. b.i.d. * monitor for any changes Subjective Date/time seen: 05/07/21 07:15 Interval history: Patient is a 81-year-old female
--- NOTE | 2021-05-07 07:53 | PM.IMPN ---
Progress Note: A&P Assessment and Plan (1) Amputation stump infection: Code(s): T87.40 - Infection of amputation stump, unspecified extremity Status: Acute Assessment and Plan: CT showed tibial stump suspicious of osteomyelitis 3 wounds present 0.5 x 0.5 scabbed outer lateral 0.5 [address] purulent drainage Dr. Huerta has been consulted thank you for your support surgical procedure done yesterday wound VAC attached Imipenem 500mg IV q8hr, vancomycin 1500 mg q.18 hours wbc's 13.5 today wound nurse consulted thank you for your help wound nurse will instruct about dressing changes trend WBCs labs in the a.m. wound cultures found MRSA blood cultures no growth to date infectious disease consulted thank you for your recommendations (Does not see a need for buttermaker helper antibiotics) diabetic carb consistent diet DVT, Lovenox 40 mg daily Care coordination has been consulted to find a board for the wheel chair to help with healing. (2) Insulin dependent type 2 diabetes mellitus: Code(s): E11.9 - Type 2 diabetes mellitus without complications; Z79.4 - rn long term care (current) use of insulin Status: Acute Assessment and Plan: A1c 6.5, glucose 114 per labs, POC glucose 243 continue home Lantus 30 units q.a.m., Lantus 20 units q.h.s. continue home aspart 6 units with meals initiate sliding scale hypoglycemic protocol trend labs labs in the a.m. adjust medications as needed (3) Chronic kidney disease: Code(s): N18.9 - Chronic kidney disease, unspecified Status: Acute Assessment and Plan: BUN /creatinine 22/1.00 today GFR 48, seems to be correcting at this time limit the use of nephrotoxic medications give medications per renal dosing trend BUN and creatinine labs in the a.m. (4) Chronic anemia: Code(s): D64.9 - Anemia, unspecified Status: Acute Assessment and Plan: H/H 8.5/28.3 MCV normal at 96.3 stable at this time trend labs labs in the a.m. transfuse as needed (5) Chronic obstructive pulmonary disease: Code(s): J44.9 - Chronic obstructive pulmonary disease, unspecified Status: Acute Assessment and Plan: no signs and symptoms of exacerbation Pulmicort nebs Q 12 scheduled, Advair inhaler 2 puffs Q 12, albuterol nebs Q 6 p.r.n., Atrovent q.6 p.r.n. supplemental oxygen to maintain SpO2 greater than 90%, chronic home O2 use at 2 L (6) Congestive heart failure: Code(s): I50.9 - Heart failure, unspecified Status: Acute Assessment and Plan: stable at this time no edema noted EF 55-60%, pulmonary hypertension on echo from 09/2020 continue home Lasix 20 mg p.o. daily, carvedilol 3.125 mg p.o. b.i.d. trend I&Os adjust medications as needed (7) Paroxysmal atrial fibrillation: Onset Date: 09/2020 Code(s): I48.0 - Paroxysmal atrial fibrillation Status: Acute Assessment and Plan: chronic EKG from December shows sinus rhythm in the 90s current heart rate is controlled at 63 continue home amiodarone 200 mg p.o. daily, continue carvedilol 3.125 p.o. b.i.d. monitor for any changes Subjective Date/time seen: 05/07/21 07:15 Interval history: Patient is a 81-year-old female with a past medical history of coronary artery disease, PVD, diabetes, chronic respiratory failure on oxygen, congestive heart failure, hypertension, and hyperlipidemia who presented the ED from [facility] for evaluation of wound present on left amputation site. Patient has no complaints today she did say that her leg pain is still 7/10 and it is shooting down into the stump area. she also stated that she was having some gas pains however no bowel movement has been charted or documented for 4 days. Her abdomen is soft and nontender. Patient denies chest pain, shortne
[2021-05-07 08:11] LABS: Glucose Point of Care 75 mg/dl (65-105)
[2021-05-07] MEDS: POLYSACCHARIDE IRON COMPLEX 150 MG CAPSULE PO (09:27)
[2021-05-07] MEDS: carvediloL 3.125 MG TABLET PO ×2 (09:28→16:44)
[2021-05-07] MEDS: FUROSEMIDE 20 MG TABLET PO (09:28)
[2021-05-07] MEDS: DOCUSATE SODIUM 100 MG CAPSULE PO ×2 (09:28→22:44)
[2021-05-07] MEDS: PANTOPRAZOLE 40 MG TABLET PO (09:28)
[2021-05-07] MEDS: BISACODYL 5 MG TABLET EC PO (09:28)
[2021-05-07] MEDS: AMIODARONE HCL 200 MG TABLET PO (09:28)
[2021-05-07] MEDS: guaiFENesin 12 HR 600 MG TABCR PO ×2 (09:28→22:44)
[2021-05-07] MEDS: POTASSIUM CHLORIDE 20 MEQ TABLET.ER PO (09:28)
[2021-05-07] MEDS: INSULIN ASPART (*BKC) 100 UNITS/ML 6 UNITS SUB-Q ×3 (09:29→17:59)
[2021-05-07] MEDS: ENOXAPARIN 40 MG/0.4 ML SYRINGE SUB-Q (09:29)
[2021-05-07] MEDS: ARTIFICIAL TEARS OPHTH SOLN 15 ML BOTTLE 1 DROP EACH EYE ×2 (09:29→16:44)
[2021-05-07] MEDS: INSULIN GLARGINE (*BKC) 100 UNITS/ML 30 UNITS SUB-Q (09:30)
--- NOTE | 2021-05-07 09:36 | PM.PNORT ---
Progress Note: A&P Assessment and Plan (1) Amputation stump infection: Code(s): T87.40 - Infection of amputation stump, unspecified extremity Status: Acute Assessment and Plan: POD #2: Left BKA Revision Continue IV antibiotics. Surgical pathology pending. plan for dressing change tomorrow. Elevate stump on pillows. Pain control. Will continue to monitor. (2) Wound dehiscence: Code(s): T81.30XA - Disruption of wound, unspecified, initial encounter Status: Acute (3) Pressure ulcer of BKA stump: Code(s): T87.89 - Other complications of amputation stump; L89.899 - Pressure ulcer of other site, unspecified stage Status: Acute Subjective Subjective Date/Time Seen: 05/07/21 09:36 Post Op day: 3 Principal diagnosis: Left below-knee amputation Interval history: no complaints overnight. Patient states pain when legs in dependent position or with movement. Tolerating diet. Exam Const: General: healthy appearing; No in distress or confusion Orientation/consciousness: patient oriented x3 and No confusion HENMT: Head: normal to inspection, normocephalic and atraumatic Eyes: Conjunctivae: conjunctivae normal Sclera: sclerae normal Resp: Effort & Inspection: normal respiratory effort and no audible wheezes Neuro: General: patient oriented x3 and No confusion Extrem: Left lower extremity: lower leg ( incisional wound VAC in place. New regular wound VAC pump with canister ) Details: other ( wound VAC dressing compressed and clean/dry) Psych: Affect: normal affect Objective Data Vital Signs Vital Signs: Vital Signs - 24 hr 05/06/21 10:00 05/06/21 16:35 05/06/21 20:00 Temperature 96.8 F L 96.8 F L Pulse Rate 73 73 70 Respiratory Rate 18 18 Blood Pressure 122/53 L 110/50 L Pulse Oximetry 100 96 05/06/21 21:49 05/06/21 21:50 05/07/21 02:15 Temperature 96.8 F L Pulse Rate 70 61 Respiratory Rate 16 18 Blood Pressure 108/52 L Pulse Oximetry 99 95 05/07/21 07:34 05/07/21 08:40 05/07/21 09:28 Temperature 97.0 F L 97.6 F Pulse Rate 63 72 88 Respiratory Rate 20 16 Blood Pressure 130/55 L 109/40 L Pulse Oximetry 97 96 Intake/Output Intake/Output: Intake & Output 05/04/21 05/05/21 05/06/21 05/07/21 23:59 23:59 23:59 23:59 Intake Total 2040 3870 1850 1720 Output Total 1000 750 600 200 Balance 1040 3120 1250 1520 Meds/Results Medications: Active Medications Generic Name Dose Route Start Last Admin Trade Name Freq PRN Reason Stop Dose Admin Acetaminophen 500 mg 05/02/21 22:59 05/06/21 12:37 Acetaminophen 500 Mg Tablet PO 500 mg Q6H PRN Administration Pain Rated 1-3 Albuterol 2.5 mg 05/03/21 01:20 Albuterol Sulfate Neb 2.5 Mg/0.5 Ml Inh INHALATION Q6H PRN Shortness Of Breath Amiodarone HCl 200 mg 05/03/21 08:00 05/07/21 09:28 Amiodarone Hcl 200 Mg Tablet PO 200 mg DAILY@0800 NEW Administration Artificial Tears 1 drop 05/03/21 09:00 05/07/21 09:29 Artificial Tears Ophth Soln 15 Ml Bottle EACH EYE 1 drop BID NEW Administration Atorvastatin Calcium 40 mg 05/03/21 21:00 05/06/21 20:19 Atorvastatin 40 Mg Tablet PO 40 mg HS NEW Administration Bisacodyl 5 mg 05/06/21 15:40 05/07/21 09:28 Bisacodyl 5 Mg Tablet Ec PO 5 mg QAM NEW Administration Budesonide 0.5 mg 05/03/21 08:00 05/06/21 21:47 Budesonide Respule Neb 0.5 Mg/2 Ml Amp INHALATION 0.5 mg Q12HRT NEW Administration Calcium Carbonate 200 mg 05/05/21 22:00 05/06/21 20:25 Calcium Carbonate (Tums) 500 Mg (200 Mg Elemental) PO 200 mg Q6H PRN Administration Indigestion Carvedilol 3.125 mg 05/03/21 08:00 05/07/21 09:28 Carvedilol 3.125 Mg Tablet PO 3.125 mg BIDWM NEW Administration Dextrose 12.5 gm 05/02/21 22:56 Dextrose 50% 25 Gm/50 Ml Syringe IV PUSH PRN PRN Hypoglycemia Protocol Docusate Sodium 100 mg 05/04/21 21:00 05/07/21 09:28 Lorenzou
[2021-05-07] MEDS: BUDESONIDE RESPULE NEB 0.5 MG/2 ML AMP INHALATION ×2 (09:39→19:57)
[2021-05-07] MEDS: FLUTICASONE/SALMETEROL 115-21 MCG INHALER 1 PUFF 2 PUFF INHALATION ×2 (09:43→19:57)
[2021-05-07 12:11] LABS: Glucose Point of Care 140 mg/dl (65-105)
--- NOTE | 2021-05-07 16:33 | WPDINFPN2 ---
Progress Note: A&P Additional Plan 1. left BKA stump site infection with wound dehiscence and possible osteomyelitis on x-ray. Blood culture x2 sets are so far negative from 05/02/2021. wound culture from 05/02/2021 showed MRSA. No Intraoperative cultures collected. Patient is currently on imipenem and vancomycin. do not anticipate prolonged IV antibiotics therapy. 2. Type 2 diabetes recommend tight glycemic control 3. Peripheral vascular disease. Will monitor wound site carefully. Subjective Date/time seen: 05/07/21 16:33 Exam Const: General: cooperative HENMT: Head: normal to inspection Mouth: Yes Normal oral and palatal mucosa present Eyes: Pupils: Equal, round and reactive pupils present EOM: EOMs intact bilaterally Neck: Neck: normal visual inspection Resp: Auscultation: clear to auscultation bilaterally Cardio: Heart sounds: S1 normal heart sound present and S2 normal heart sound present GI: Inspection: normal to inspection Auscultation: normal bowel sounds Skin: Other: Left lower extremity stump site wound VAC in place. No surrounding erythema. Right lower extremity stent no skin breakdown. Neuro: General: oriented to person Cognition (Neuro): normal cognition Extrem: General: normal to inspection Psych: Appearance: grossly normal Objective Data Vital Signs Vital Signs: Vital Signs - 24 hr 05/06/21 16:35 05/06/21 20:00 05/06/21 21:49 Temperature 36.0 C L Pulse Rate 73 70 70 Respiratory Rate 18 16 Blood Pressure 110/50 L Pulse Oximetry 96 05/06/21 21:50 05/07/21 02:15 05/07/21 07:34 Temperature 36.0 C L 36.1 C L Pulse Rate 61 63 Respiratory Rate 18 20 Blood Pressure 108/52 L 130/55 L Pulse Oximetry 99 95 97 05/07/21 08:40 05/07/21 09:15 05/07/21 09:28 Temperature 36.4 C Pulse Rate 72 88 Respiratory Rate 16 Blood Pressure 109/40 L Pulse Oximetry 96 97 05/07/21 09:39 05/07/21 09:45 05/07/21 13:00 Temperature 36.6 C Pulse Rate 67 71 72 Respiratory Rate 20 20 20 Blood Pressure 108/45 L Pulse Oximetry 97 100 Intake/Output Intake/Output: Intake & Output 05/04/21 05/05/21 05/06/21 05/07/21 23:59 23:59 23:59 23:59 Intake Total 2040 3870 1850 1960 Output Total 1000 750 600 200 Balance 1040 3120 1250 1760 Meds/Results Medications: Active Medications Generic Name Dose Route Start Last Admin Trade Name Freq PRN Reason Stop Dose Admin Acetaminophen 500 mg 05/02/21 22:59 05/06/21 12:37 Acetaminophen 500 Mg Tablet PO 500 mg Q6H PRN Administration Pain Rated 1-3 Albuterol 2.5 mg 05/03/21 01:20 Albuterol Sulfate Neb 2.5 Mg/0.5 Ml Inh INHALATION Q6H PRN Shortness Of Breath Amiodarone HCl 200 mg 05/03/21 08:00 05/07/21 09:28 Amiodarone Hcl 200 Mg Tablet PO 200 mg DAILY@0800 NEW Administration Artificial Tears 1 drop 05/03/21 09:00 05/07/21 09:29 Artificial Tears Ophth Soln 15 Ml Bottle EACH EYE 1 drop BID NEW Administration Atorvastatin Calcium 40 mg 05/03/21 21:00 05/06/21 20:19 Atorvastatin 40 Mg Tablet PO 40 mg HS NEW Administration Bisacodyl 5 mg 05/06/21 15:40 05/07/21 09:28 Bisacodyl 5 Mg Tablet Ec PO 5 mg QAM NEW Administration Budesonide 0.5 mg 05/03/21 08:00 05/07/21 09:39 Budesonide Respule Neb 0.5 Mg/2 Ml Amp INHALATION 0.5 mg Q12HRT NEW Administration Calcium Carbonate 200 mg 05/05/21 22:00 05/06/21 20:25 Calcium Carbonate (Tums) 500 Mg (200 Mg Elemental) PO 200 mg Q6H PRN Administration Indigestion Carvedilol 3.125 mg 05/03/21 08:00 05/07/21 09:28 Carvedilol 3.125 Mg Tablet PO 3.125 mg BIDWM NEW Administration Dextrose 12.5 gm 05/02/21 22:56 Dextrose 50% 25 Gm/50 Ml Syringe IV PUSH PRN PRN Hypoglycemia Protocol Docusate Sodium 100 mg 05/04/21 21:00 05/07/21 09:28 Docusate Sodium 100 Mg Capsule PO 100 mg Q12HR NEW Administration Enoxaparin Sodium 40 mg 05/03/21 0
--- NOTE | 2021-05-07 20:06 | PC.NURSE ---
Letty left a message notifying that Dr Huerta wants the stump protector whether the wound vac is on or not.
[2021-05-07] MEDS: CALCIUM CARBONATE (TUMS) 500 MG (200 MG ELEMENTAL) PO (20:22)
[2021-05-07 20:44] LABS: Glucose Point of Care 166 mg/dl (65-105)
[2021-05-07] MEDS: ATORVASTATIN 40 MG TABLET PO (22:44)
[2021-05-07] MEDS: INSULIN GLARGINE (*BKC) 100 UNITS/ML 20 UNITS SUB-Q (22:45)
[2021-05-08] VITALS (13 sets, daily range): BP systolic 100–117; BP diastolic 43–59; PULSE 67–80; RESP 18–20; TEMP 36.2–36.7; O2SAT 97–100
[2021-05-08 03:49] LABS: Glucose Point of Care 112 mg/dl (65-105)
[2021-05-08 05:40] LABS: Hematocrit 28.7 % (37.0-47.0); Hemoglobin 8.3 g/dL (12.0-15.0); Mean Corpuscular HGB Conc 28.9 g/dl (32-36); Mean Corpuscular Hemoglobin 28.6 pg (26-34); Mean Platelet Volume 10.4 fl (7.4-10.4); Platelet Count Result 266 k/mm3 (150-375); White Blood Count 15.9 K/mm3 (4.5-10.0)
[2021-05-08 05:58] LABS: Alanine Aminotransferase 21 U/L (4-35); Albumin Level 3.2 g/dL (3.5-5.1); Alkaline Phosphatase 142 U/L (38-126); Anion Gap 3 mmol/L (8-16); Aspartate Amino Transferase 37 U/L (14-36); Bilirubin,Total 0.4 mg/dL (0.2-1.3); Blood Urea Nitrogen 21 mg/dL (7-17); Calcium 8.6 mg/dL (8.4-10.2); Carbon Dioxide 34 mmol/L (22-30); Chloride 96 mmol/L (98-107); Estimated CRCL calculation 44 ml/min; Estimated Glomerular Filt Rate 48; Glucose 126 mg/dL (65-110); Magnesium 2.3 mg/dL (1.6-2.3); Potassium 4.5 mmol/L (3.4-5.0); Sodium 133 mmol/L (137-145)
[2021-05-08 06:19] LABS: Band Neutrophils Percent 5 % (0-6); Basophils Absolute Manual 0.63 K/mm3 (0.0-0.1); Basophils Percent Manual 4 % (0-1); Eosinophils Absolute Manual 0.47 K/mm3 (0.02-0.5); Eosinophils Percent Manual 3 % (0-4); Hypochromasia 2+ (NORMAL); Lymphocytes Absolute Manual 1.11 K/mm3 (1.1-4.5); Metamyelocytes Percent 1 %; Monocytes Absolute Manual 1.27 K/mm3 (0.1-0.90); Monocytes Percent Manual 8 % (3-9); Neutrophils Absolute Manual 12.24 K/mm3 (1.7-7.2); Neutrophils Percent Manual 72 % (46-73); Platelet Estimate Adequate (Adequate); Total Cells Counted 100
[2021-05-08] MEDS: traMADol/ACETAMINOPHEN (*CRX) (ULTRACET) 37.5/325 MG TABLET 1 TAB PO ×2 (06:32→17:04)
[2021-05-08 07:42] LABS: Glucose Point of Care 98 mg/dl (65-105)
[2021-05-08] MEDS: BISACODYL 5 MG TABLET EC PO (08:45)
[2021-05-08] MEDS: DOCUSATE SODIUM 100 MG CAPSULE PO ×2 (08:45→21:19)
[2021-05-08] MEDS: guaiFENesin 12 HR 600 MG TABCR PO ×2 (08:45→21:18)
[2021-05-08] MEDS: FUROSEMIDE 20 MG TABLET PO (08:46)
[2021-05-08] MEDS: PANTOPRAZOLE 40 MG TABLET PO (08:46)
[2021-05-08] MEDS: POTASSIUM CHLORIDE 20 MEQ TABLET.ER PO (08:46)
[2021-05-08] MEDS: AMIODARONE HCL 200 MG TABLET PO (08:46)
[2021-05-08] MEDS: POLYSACCHARIDE IRON COMPLEX 150 MG CAPSULE PO (08:46)
[2021-05-08] MEDS: carvediloL 3.125 MG TABLET PO ×2 (08:47→16:28)
[2021-05-08] MEDS: INSULIN GLARGINE (*BKC) 100 UNITS/ML 30 UNITS SUB-Q (08:48)
[2021-05-08] MEDS: ARTIFICIAL TEARS OPHTH SOLN 15 ML BOTTLE 1 DROP EACH EYE ×2 (08:48→16:28)
[2021-05-08] MEDS: ENOXAPARIN 40 MG/0.4 ML SYRINGE SUB-Q (08:48)
--- NOTE | 2021-05-08 09:14 | PM.PNORT ---
Progress Note: A&P Assessment and Plan (1) Amputation stump infection: Code(s): T87.40 - Infection of amputation stump, unspecified extremity Status: Acute Assessment and Plan: POD #4: Left BKA Revision Continue IV antibiotics. Surgical pathology pending. Dressing intact and functioning. Minimal drainage in chamber. Elevate stump on pillows. Pain control. Will continue to monitor. Appreciate ID recommendations. (2) Wound dehiscence: Code(s): T81.30XA - Disruption of wound, unspecified, initial encounter Status: Acute (3) Pressure ulcer of BKA stump: Code(s): T87.89 - Other complications of amputation stump; L89.899 - Pressure ulcer of other site, unspecified stage Status: Acute Subjective Subjective Date/Time Seen: 05/08/21 0830 POD #4: Revision left BKA. No new complaints. Some pain with movement of left stump. Improvement with use of Ice. Review of Systems Review of Systems: All systems reviewed & are unremarkable except as noted in HPI and below Exam Const: General: healthy appearing; No in distress or confusion Orientation/consciousness: patient oriented x3 and No confusion HENMT: Head: normal to inspection, normocephalic and atraumatic Eyes: Conjunctivae: conjunctivae normal Sclera: sclerae normal Resp: Effort & Inspection: normal respiratory effort and no audible wheezes Neuro: General: patient oriented x3 and No confusion Extrem: Left lower extremity: lower leg ( incisional wound VAC in place. New regular wound VAC pump with canister ) Details: other ( wound VAC dressing compressed and clean/dry) Psych: Affect: normal affect Objective Data Vital Signs Vital Signs: Vital Signs - 24 hr 05/07/21 09:15 05/07/21 09:28 05/07/21 09:39 Temperature Pulse Rate 88 67 Respiratory Rate 20 Blood Pressure Pulse Oximetry 97 97 05/07/21 09:45 05/07/21 13:00 05/07/21 16:20 Temperature 36.6 C 36.4 C L Pulse Rate 71 72 72 Respiratory Rate 20 20 18 Blood Pressure 108/45 L 118/50 L Pulse Oximetry 100 100 05/07/21 16:44 05/07/21 19:58 05/07/21 20:04 Temperature Pulse Rate 78 77 73 Respiratory Rate 20 20 Blood Pressure Pulse Oximetry 05/07/21 20:05 05/07/21 21:30 05/07/21 22:00 Temperature 36.6 C Pulse Rate 69 Respiratory Rate 14 Blood Pressure 112/52 L Pulse Oximetry 97 100 100 05/08/21 07:05 05/08/21 08:46 05/08/21 08:47 Temperature 36.5 C Pulse Rate 68 80 80 Respiratory Rate 18 Blood Pressure 110/52 L Pulse Oximetry 98 Intake/Output Intake/Output: Intake & Output 05/05/21 05/06/21 05/07/21 05/08/21 23:59 23:59 23:59 23:59 Intake Total 3870 1850 2990 1240 Output Total 750 851 427 6112 Balance 3120 1250 2190 240 Meds/Results Medications: Active Medications Generic Name Dose Route Start Last Admin Trade Name Freq PRN Reason Stop Dose Admin Acetaminophen 500 mg 05/02/21 22:59 05/06/21 12:37 Acetaminophen 500 Mg Tablet PO 500 mg Q6H PRN Administration Pain Rated 1-3 Albuterol 2.5 mg 05/03/21 01:20 Albuterol Sulfate Neb 2.5 Mg/0.5 Ml Inh INHALATION Q6H PRN Shortness Of Breath Amiodarone HCl 200 mg 05/03/21 08:00 05/08/21 08:46 Amiodarone Hcl 200 Mg Tablet PO 200 mg DAILY@0800 NEW Administration Artificial Tears 1 drop 05/03/21 09:00 05/08/21 08:48 Artificial Tears Ophth Soln 15 Ml Bottle EACH EYE 1 drop BID NEW Administration Atorvastatin Calcium 40 mg 05/03/21 21:00 05/07/21 22:44 Atorvastatin 40 Mg Tablet PO 40 mg HS NEW Administration Bisacodyl 5 mg 05/06/21 15:40 05/08/21 08:45 Bisacodyl 5 Mg Tablet Ec PO 5 mg QAM NEW Administration Budesonide 0.5 mg 05/03/21 08:00 05/07/21 19:57 Budesonide Respule Neb 0.5 Mg/2 Ml Amp INHALATION 0.5 mg Q12HRT NEW Administration Calcium Carbonate 200 mg 05/05/21 22:00 05/07/21 20:22 Calcium Carbonate (Tums) 500 Mg (200 Mg Elemental)
[2021-05-08] MEDS: FLUTICASONE/SALMETEROL 115-21 MCG INHALER 1 PUFF 2 PUFF INHALATION ×2 (09:37→21:53)
[2021-05-08] MEDS: BUDESONIDE RESPULE NEB 0.5 MG/2 ML AMP INHALATION ×2 (09:37→21:53)
[2021-05-08] MEDS: HYDROmorphone HCL INJ (*CRX) 1 MG/ML SYR 0.5 MG IV PUSH (11:43)
--- NOTE | 2021-05-08 11:45 | P.PNIM_ITS ---
Progress Note: A&P Assessment and Plan (1) Amputation stump infection: Code(s): T87.40 - Infection of amputation stump, unspecified extremity Status: Acute Assessment and Plan: * CT showed tibial stump suspicious of osteomyelitis * 3 wounds present 0.5 x 0.5 scabbed outer lateral 0.5 mining with purulent drainage * Dr. Huerta has been consulted thank you for your support * surgical procedure done yesterday wound VAC attached * Imipenem 500mg IV q8hr, vancomycin 1500 mg q.18 hours * wbc's 15.9 today * wound nurse consulted thank you for your help * wound nurse will instruct about dressing changes * trend WBCs * labs in the a.m. * wound cultures found MRSA * blood cultures no growth to date * infectious disease consulted thank you for your recommendations (Does not see a need for penitentiary antibiotics) * diabetic carb consistent diet * DVT, Lovenox 40 mg daily * Care coordination has been consulted to find a board for the wheel chair to help with healing. (2) Insulin dependent type 2 diabetes mellitus: Code(s): E11.9 - Type 2 diabetes mellitus without complications; Z79.4 - manager terminal (current) use of insulin Status: Acute Assessment and Plan: * A1c 6.5, glucose 126 per labs, POC glucose 98 * continue home Lantus 30 units q.a.m., Lantus 20 units q.h.s. * continue home aspart 6 units with meals * initiate sliding scale * hypoglycemic protocol * trend labs * labs in the a.m. * adjust medications as needed (3) Chronic kidney disease: Code(s): N18.9 - Chronic kidney disease, unspecified Status: Acute Assessment and Plan: * BUN /creatinine 21/1.10 today GFR 48, seems to be correcting at this time * limit the use of nephrotoxic medications * give medications per renal dosing * trend BUN and creatinine * labs in the a.m. (4) Chronic anemia: Code(s): D64.9 - Anemia, unspecified Status: Acute Assessment and Plan: * H/H 8.3/28.7 MCV normal at 99.0 * stable at this time * trend labs * labs in the a.m. * transfuse as needed (5) Chronic obstructive pulmonary disease: Code(s): J44.9 - Chronic obstructive pulmonary disease, unspecified Status: Acute Assessment and Plan: * no signs and symptoms of exacerbation * Pulmicort nebs Q 12 scheduled, Advair inhaler 2 puffs Q 12, albuterol nebs Q 6 p.r.n., Atrovent q.6 p.r.n. * supplemental oxygen to maintain SpO2 greater than 90%, chronic home O2 use at 2 L (6) Congestive heart failure: Code(s): I50.9 - Heart failure, unspecified Status: Acute Assessment and Plan: * stable at this time * no edema noted * EF 55-60%, pulmonary hypertension on echo from 09/2020 * continue home Lasix 20 mg p.o. daily, carvedilol 3.125 mg p.o. b.i.d. * trend I&Os * adjust medications as needed (7) Paroxysmal atrial fibrillation: Onset Date: 09/2020 Code(s): I48.0 - Paroxysmal atrial fibrillation Status: Acute Assessment and Plan: * chronic * EKG from December shows sinus rhythm in the 90s * current heart rate is controlled at 63 * continue home amiodarone 200 mg p.o. daily, continue carvedilol 3.125 p.o. b.i.d. * monitor for any changes Subjective Date/time seen: 05/08/21 11:15 Interval history: Patient is a 81-year-old female w
--- NOTE | 2021-05-08 11:45 | PM.IMPN ---
Progress Note: A&P Assessment and Plan (1) Amputation stump infection: Code(s): T87.40 - Infection of amputation stump, unspecified extremity Status: Acute Assessment and Plan: CT showed tibial stump suspicious of osteomyelitis 3 wounds present 0.5 x 0.5 scabbed outer lateral 0.[address] purulent drainage [address] Huerta has been consulted thank you for your support surgical procedure done yesterday wound VAC attached Imipenem 500mg IV q8hr, vancomycin 1500 mg q.18 hours wbc's 15.9 today wound nurse consulted thank you for your help wound nurse will instruct about dressing changes trend WBCs labs in the a.m. 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 (2) Insulin dependent type 2 diabetes mellitus: Code(s): E11.9 - Type 2 diabetes mellitus without complications; Z79.4 - terminal computer operator (current) use of insulin Status: Acute Assessment and Plan: A1c 6.5, glucose 126 per labs, POC glucose 98 continue home Lantus 30 units q.a.m., Lantus 20 units q.h.s. continue home aspart 6 units with meals initiate sliding scale hypoglycemic protocol trend labs labs in the a.m. adjust medications as needed (3) Chronic kidney disease: Code(s): N18.9 - Chronic kidney disease, unspecified Status: Acute Assessment and Plan: BUN /creatinine 21/1.10 today GFR 48, seems to be correcting at this time limit the use of nephrotoxic medications give medications per renal dosing trend BUN and creatinine labs in the a.m. (4) Chronic anemia: Code(s): D64.9 - Anemia, unspecified Status: Acute Assessment and Plan: H/H 8.3/28.7 MCV normal at 99.0 stable at this time trend labs labs in the a.m. transfuse as needed (5) Chronic obstructive pulmonary disease: Code(s): J44.9 - Chronic obstructive pulmonary disease, unspecified Status: Acute Assessment and Plan: no signs and symptoms of exacerbation Pulmicort nebs Q 12 scheduled, Advair inhaler 2 puffs Q 12, albuterol nebs Q 6 p.r.n., Atrovent q.6 p.r.n. supplemental oxygen to maintain SpO2 greater than 90%, chronic home O2 use at 2 L (6) Congestive heart failure: Code(s): I50.9 - Heart failure, unspecified Status: Acute Assessment and Plan: stable at this time no edema noted EF 55-60%, pulmonary hypertension on echo from 09/2020 continue home Lasix 20 mg p.o. daily, carvedilol 3.125 mg p.o. b.i.d. trend I&Os adjust medications as needed (7) Paroxysmal atrial fibrillation: Onset Date: 09/2020 Code(s): I48.0 - Paroxysmal atrial fibrillation Status: Acute Assessment and Plan: chronic EKG from December shows sinus rhythm in the 90s current heart rate is controlled at 63 continue home amiodarone 200 mg p.o. daily, continue carvedilol 3.125 p.o. b.i.d. monitor for any changes Subjective Date/time seen: 05/08/21 11:15 Interval history: Patient is a 81-year-old female with a past medical history of coronary artery disease, PVD, diabetes, chronic respiratory failure on oxygen, congestive heart failure, hypertension, and hyperlipidemia who presented the ED from [facility] for evaluation of wound present on left amputation site. She still complaining of pain in the amputation site is red with swelling noted. She has no other complaints. she was able to sit beside the bed and she was able to roll around for bed change. Patient denies sweats, chills, fevers, chest pain, shortness of breath, nausea, vomiting, abdominal pain. Review of
[2021-05-08 12:45] LABS: Glucose Point of Care 153 mg/dl (65-105)
[2021-05-08] MEDS: INSULIN ASPART (*BKC) 100 UNITS/ML 6 UNITS SUB-Q (12:48)
[2021-05-08 16:11] LABS: Vancomycin Trough 24.8 ug/mL (10.0-20.0)
[2021-05-08 16:52] LABS: Glucose Point of Care 97 mg/dl (65-105)
[2021-05-08 20:31] LABS: Glucose Point of Care 135 mg/dl (65-105)
[2021-05-08] MEDS: ATORVASTATIN 40 MG TABLET PO (21:18)
[2021-05-08] MEDS: INSULIN GLARGINE (*BKC) 100 UNITS/ML 20 UNITS SUB-Q (21:23)
[2021-05-09] VITALS (11 sets, daily range): BP systolic 108–110; BP diastolic 46–52; PULSE 70–80; RESP 18–20; TEMP 36; O2SAT 93–100
[2021-05-09] MEDS: traMADol/ACETAMINOPHEN (*CRX) (ULTRACET) 37.5/325 MG TABLET 1 TAB PO ×2 (05:02→21:18)
[2021-05-09] MEDS: BISACODYL 5 MG TABLET EC PO (05:06)
[2021-05-09 05:38] LABS: Hematocrit 27.9 % (37.0-47.0); Hemoglobin 8.3 g/dL (12.0-15.0); Mean Corpuscular HGB Conc 29.7 g/dl (32-36); Mean Corpuscular Hemoglobin 28.5 pg (26-34); Mean Corpuscular Volume 95.9 fl (80-100); Mean Platelet Volume 10.4 fl (7.4-10.4); Platelet Count Result 297 k/mm3 (150-375); Red Blood Count 2.91 M/mm3 (4.2-5.4); Red Cell Distribution Width 15.9 % (11.5-14.5); White Blood Count 17.2 K/mm3 (4.5-10.0)
[2021-05-09 05:58] LABS: Alanine Aminotransferase 19 U/L (4-35); Albumin Level 3.3 g/dL (3.5-5.1); Alkaline Phosphatase 147 U/L (38-126); Aspartate Amino Transferase 31 U/L (14-36); Bilirubin,Total 0.5 mg/dL (0.2-1.3); Blood Urea Nitrogen 23 mg/dL (7-17); Calcium 8.8 mg/dL (8.4-10.2); Carbon Dioxide 33 mmol/L (22-30); Chloride 93 mmol/L (98-107); Estimated CRCL calculation 49 ml/min; Estimated Glomerular Filt Rate 53; Glucose 126 mg/dL (65-110); Magnesium 2.3 mg/dL (1.6-2.3)
[2021-05-09 06:05] LABS: Anion Gap 6 mmol/L (8-16); Potassium 4.5 mmol/L (3.4-5.0); Sodium 132 mmol/L (137-145)
[2021-05-09] MEDS: BUDESONIDE RESPULE NEB 0.5 MG/2 ML AMP INHALATION ×2 (07:33→19:38)
[2021-05-09] MEDS: FLUTICASONE/SALMETEROL 115-21 MCG INHALER 1 PUFF 2 PUFF INHALATION ×2 (07:33→19:38)
[2021-05-09 07:36] LABS: Glucose Point of Care 144 mg/dl (65-105)
[2021-05-09] MEDS: PANTOPRAZOLE 40 MG TABLET PO (08:30)
[2021-05-09] MEDS: FUROSEMIDE 20 MG TABLET PO (08:30)
[2021-05-09] MEDS: ARTIFICIAL TEARS OPHTH SOLN 15 ML BOTTLE 1 DROP EACH EYE ×2 (08:30→17:35)
[2021-05-09] MEDS: guaiFENesin 12 HR 600 MG TABCR PO ×2 (08:30→21:13)
[2021-05-09] MEDS: POLYSACCHARIDE IRON COMPLEX 150 MG CAPSULE PO (08:30)
[2021-05-09] MEDS: ENOXAPARIN 40 MG/0.4 ML SYRINGE SUB-Q (08:30)
[2021-05-09] MEDS: POTASSIUM CHLORIDE 20 MEQ TABLET.ER PO (08:30)
[2021-05-09] MEDS: AMIODARONE HCL 200 MG TABLET PO (08:37)
[2021-05-09] MEDS: INSULIN GLARGINE (*BKC) 100 UNITS/ML 30 UNITS SUB-Q (08:38)
--- NOTE | 2021-05-09 08:47 | PM.PNORT ---
Progress Note: A&P Assessment and Plan (1) Amputation stump infection: Code(s): T87.40 - Infection of amputation stump, unspecified extremity Status: Acute Assessment and Plan: POD #5: Left BKA Revision Continue IV antibiotics. Surgical pathology from 05/04 still pending. Dressing intact and functioning. no increased drainage in chamber from yesterday. Plan for removal of wound VAC dressing today and transition to regular dressings. Patient to begin stump protector after wound VAC removal today. Elevate stump on pillows. Pain control. Will continue to monitor. Appreciate ID recommendations. (2) Wound dehiscence: Code(s): T81.30XA - Disruption of wound, unspecified, initial encounter Status: Acute (3) Pressure ulcer of BKA stump: Code(s): T87.89 - Other complications of amputation stump; L89.899 - Pressure ulcer of other site, unspecified stage Status: Acute Subjective Subjective Date/Time Seen: 05/09/21 08:47 POD #5: Revision left BKA. No new complaints. Sitting up in chair eating breakfast. Pain well controlled. Review of Systems Review of Systems: All systems reviewed & are unremarkable except as noted in HPI and below Exam Const: General: healthy appearing; No in distress or confusion Orientation/consciousness: patient oriented x3 and No confusion HENMT: Head: normal to inspection, normocephalic and atraumatic Eyes: Conjunctivae: conjunctivae normal Sclera: sclerae normal Resp: Effort & Inspection: normal respiratory effort and no audible wheezes Cardio: Rate: regular rate Rhythm: regular rhythm GI: Inspection: non-distended GI Palp: Yes Soft to palpation, No Firmness to palpation present (GI), No Tenderness to palpation present (GI) and No Guarding due to palpation present (GI) Skin: General skin exam: no erythema Wounds: wounds noted ( See below) Neuro: General: patient oriented x3 and No confusion Cognition (Neuro): normal cognition Speech: normal speech Extrem: Right lower extremity: knee ( right BKA) Left lower extremity: lower leg ( incisional wound VAC in place. ) Details: other ( wound VAC dressing compressed and clean/dry) Psych: Affect: normal affect Objective Data Vital Signs Vital Signs: Vital Signs - 24 hr 05/08/21 08:50 05/08/21 09:40 05/08/21 09:50 Temperature Pulse Rate 74 78 Respiratory Rate 20 20 Blood Pressure Pulse Oximetry 97 98 05/08/21 10:00 05/08/21 14:10 05/08/21 16:28 Temperature 36.2 C L 36.4 C L Pulse Rate 76 74 78 Respiratory Rate 18 18 Blood Pressure 117/48 L 107/59 L Pulse Oximetry 100 98 05/08/21 17:45 05/08/21 20:00 05/08/21 21:54 Temperature 36.3 C L Pulse Rate 72 75 75 Respiratory Rate 18 20 20 Blood Pressure 107/57 L Pulse Oximetry 100 100 05/08/21 22:00 05/09/21 07:34 05/09/21 07:36 Temperature 36.7 C Pulse Rate 67 75 Respiratory Rate 20 18 Blood Pressure 100/43 L Pulse Oximetry 98 93 05/09/21 07:47 05/09/21 08:37 Temperature Pulse Rate 77 70 Respiratory Rate 18 Blood Pressure Pulse Oximetry Intake/Output Intake/Output: Intake & Output 05/06/21 05/07/21 05/08/21 05/09/21 23:59 23:59 23:59 23:59 Intake Total 1850 2990 2430 1050 Output Total 994 377 7237 700 Balance 1250 2190 -70 350 Meds/Results Medications: Active Medications Generic Name Dose Route Start Last Admin Trade Name Leesa PRN Reason Stop Dose Admin Acetaminophen 500 mg 05/02/21 22:59 05/06/21 12:37 Acetaminophen 500 Mg Tablet PO 500 mg Q6H PRN Administration Pain Rated 1-3 Albuterol 2.5 mg 05/03/21 01:20 Albuterol Sulfate Neb 2.5 Mg/0.5 Ml Inh INHALATION Q6H PRN Shortness Of Breath Amiodarone HCl 200 mg 05/03/21 08:00 05/09/21 08:37 Amiodarone Hcl 200 Mg Tablet PO 200 mg DAILY@0800 NEW Administration Artificial Tears 1 drop 05/03/21 09:00 05/09/21 08:30 Artificial Tears Ophth Soln 15 Ml Bottle EACH E
[2021-05-09 09:54] LABS: Glucose Point of Care 171 mg/dl (65-105)
[2021-05-09] MEDS: INSULIN ASPART (*BKC) 100 UNITS/ML 6 UNITS SUB-Q (10:00)
[2021-05-09 12:37] LABS: Glucose Point of Care 85 mg/dl (65-105)
[2021-05-09 13:44] LABS: Glucose Point of Care 143 mg/dl (65-105)
--- NOTE | 2021-05-09 14:53 | P.PNIM_ITS ---
Progress Note: A&P Assessment and Plan (1) Amputation stump infection: Code(s): T87.40 - Infection of amputation stump, unspecified extremity Status: Acute Assessment and Plan: * CT showed tibial stump suspicious of osteomyelitis * 3 wounds present 0.5 x 0.5 scabbed outer lateral 0.5 mining with purulent drainage * Ortho Dr. Huerta revision and consult/following patient * POD #5: Left BKA Revision : surgical procedure done May 04, then wound VAC attached, now would vac off, gauze dressing intact. * Wound Nurse doing dressing changes. * Imipenem 500mg IV q8hr, vancomycin 1500 mg q.18 hours * WBC increasing now, was 14.1 then 15.9, today 17. 2 (highest during this admission) * Infectious Disease physician following patient * repeat labs in the a.m. * wound cultures + MRSA * blood cultures on 05/02 no growth, repeat blood cultures on 05/09 due to elevated WBC count and uncontrolled pain at site. * Surgical pathology from 05/04 still pending. * diabetic carb consistent diet - glucose levels 144, 171, 85, controlled at this time. * DVTprophylaxis, Lovenox 40 mg daily * Care coordination has been consulted to find a board for the wheel chair to help with healing. * Patient to begin stump protector * Elevate stump on pillows. * improve PRN Pain control. (2) Insulin dependent type 2 diabetes mellitus: Code(s): E11.9 - Type 2 diabetes mellitus without complications; Z79.4 - intermediate frame tender (current) use of insulin Status: Acute Assessment and Plan: * A1c 6.5 * diabetic carb consistent diet * glucose levels 144, 171, 85, controlled at this time. * continue home Lantus 30 units q.a.m., Lantus 20 units q.h.s. * continue home aspart 6 units with meals - currently on HOLD - as glucose levels were getting too low. * continue sliding scale * hypoglycemic protocol * labs in the a.m. * keep controlled for best amputation/surgical healing (3) Chronic kidney disease: Code(s): N18.9 - Chronic kidney disease, unspecified Status: Acute Assessment and Plan: * creatinine 1.00 today improved. * limit the use of nephrotoxic medications * give IV antibiotics/ medications per renal dosing * trend BUN and creatinine * labs in the a.m. * continue to encourage adequate oral hydration, strict I/Os. (4) Chronic anemia: Code(s): D64.9 - Anemia, unspecified Status: Acute Assessment and Plan: * Hgb stable at 8.3, Hematocrit stable at 28.7, 27.9 * stable at this time * continue daily iron dosing * labs in the a.m., may need to check iron/ferritin levels. * transfuse as needed (5) Chronic obstructive pulmonary disease: Code(s): J44.9 - Chronic obstructive pulmonary disease, unspecified Status: Acute Assessment and Plan: * no signs and symptoms of exacerbation * Pulmicort nebs Q 12 scheduled, Advair inhaler 2 puffs Q 12, albuterol nebs Q 6 p.r.n., Atrovent q.6 p.r.n. * supplemental oxygen to maintain SpO2 greater than 90%, chronic home O2 use at 2 L * avoid over exertion * avoid laying flat on back for prolonged periods of time - may become hypoxemic (6) Congestive heart failure: Code(s): I50.9 - Heart failure, unspecified Status: Acute Assessment and Plan: * stable at this time * no edema noted * EF 55-60%, pulmonary hypertension on echo from 09/2020 * continue home Lasix 20 mg p.o. daily, carvedilol 3.125 mg p.o. b.i.d. * trend I&Os * ordered BNP in morning, to compare to BNP levels earlier in the year * adjust medications as n
--- NOTE | 2021-05-09 14:53 | PM.IMPN ---
Progress Note: A&P Assessment and Plan (1) Amputation stump infection: Code(s): T87.40 - Infection of amputation stump, unspecified extremity Status: Acute Assessment and Plan: CT showed tibial stump suspicious of osteomyelitis 3 wounds present 0.5 x 0.5 scabbed outer lateral 0.5 mining with purulent drainage Ortho Dr. Huerta revision and consult/following patient POD #5: Left BKA Revision : surgical procedure done May 04, then wound VAC attached, now would vac off, gauze dressing intact. Wound Nurse doing dressing changes. Imipenem 500mg IV q8hr, vancomycin 1500 mg q.18 hours WBC increasing now, was 14.1 then 15.9, today 17. 2 (highest during this admission) Infectious Disease physician following patient repeat labs in the a.m. wound cultures + MRSA blood cultures on 05/02 no growth, repeat blood cultures on 05/09 due to elevated WBC count and uncontrolled pain at site. Surgical pathology from 05/04 still pending. diabetic carb consistent diet - glucose levels 144, 171, 85, controlled at this time. DVTprophylaxis, Lovenox 40 mg daily Care coordination has been consulted to find a board for the wheel chair to help with healing. Patient to begin stump protector Elevate stump on pillows. improve PRN Pain control. (2) Insulin dependent type 2 diabetes mellitus: Code(s): E11.9 - Type 2 diabetes mellitus without complications; Z79.4 - [facility] (current) use of insulin Status: Acute Assessment and Plan: A1c 6.5 diabetic carb consistent diet glucose levels 144, 171, 85, controlled at this time. continue home Lantus 30 units q.a.m., Lantus 20 units q.h.s. continue home aspart 6 units with meals - currently on HOLD - as glucose levels were getting too low. continue sliding scale hypoglycemic protocol labs in the a.m. keep controlled for best amputation/surgical healing (3) Chronic kidney disease: Code(s): N18.9 - Chronic kidney disease, unspecified Status: Acute Assessment and Plan: creatinine 1.00 today improved. limit the use of nephrotoxic medications give IV antibiotics/ medications per renal dosing trend BUN and creatinine labs in the a.m. continue to encourage adequate oral hydration, strict I/Os. (4) Chronic anemia: Code(s): D64.9 - Anemia, unspecified Status: Acute Assessment and Plan: Hgb stable at 8.3, Hematocrit stable at 28.7, 27.9 stable at this time continue daily iron dosing labs in the a.m., may need to check iron/ferritin levels. transfuse as needed (5) Chronic obstructive pulmonary disease: Code(s): J44.9 - Chronic obstructive pulmonary disease, unspecified Status: Acute Assessment and Plan: no signs and symptoms of exacerbation Pulmicort nebs Q 12 scheduled, Advair inhaler 2 puffs Q 12, albuterol nebs Q 6 p.r.n., Atrovent q.6 p.r.n. supplemental oxygen to maintain SpO2 greater than 90%, chronic home O2 use at 2 L avoid over exertion avoid laying flat on back for prolonged periods of time - may become hypoxemic (6) Congestive heart failure: Code(s): I50.9 - Heart failure, unspecified Status: Acute Assessment and Plan: stable at this time no edema noted EF 55-60%, pulmonary hypertension on echo from 09/2020 continue home Lasix 20 mg p.o. daily, carvedilol 3.125 mg p.o. b.i.d. trend I&Os ordered BNP in morning, to compare to BNP levels earlier in the year adjust medications as needed (7) Paroxysmal atrial fibrillation: Onset Date: 09/2020 Code(s): I48.0 - Paroxysmal atrial fibrillation Status: Acute Assessment and Plan: chronic EKG from December shows sinus rhythm in the 90s current heart rate is controlled at 67-70 continue home amiodarone 200 mg p.o. daily, continue carvedilol 3.125 p.o. b.i.d.(as BPs allow the coreg dosing) monitor for any changes (8) Wound dehisce
--- NOTE | 2021-05-09 15:18 | WPDINFPN2 ---
Progress Note: A&P Additional Plan 1. left BKA stump site infection with wound dehiscence and possible osteomyelitis of the distal toes tibia on x-ray. Blood culture x2 sets are so far negative from 05/02/2021. wound culture from 05/02/2021 showed MRSA. No Intraoperative cultures collected. Patient is currently on imipenem and vancomycin. continue current care. White count slightly elevated to 18,000. patient denies any diarrhea or shortness of breath. CBC knee am. 2. Type 2 diabetes recommend tight glycemic control 3. Peripheral vascular disease. Will monitor wound site carefully. Subjective Date/time seen: 05/09/21 15:18 Exam Const: General: cooperative HENMT: Head: normal to inspection Eyes: General: appearance normal, both eyes and all related structures Resp: Effort & Inspection: normal respiratory effort Auscultation: clear to auscultation bilaterally Cardio: Heart sounds: S1 normal heart sound present and S2 normal heart sound present GI: Inspection: normal to inspection Percussion: Yes normal to percussion Back/Spine/Pelvis: Back: no CVA tenderness Neuro: General: oriented to person Extrem: General: normal to inspection Psych: Other: right lower extremity stump site wound VAC in place Objective Data Vital Signs Vital Signs: Vital Signs - 24 hr 05/08/21 16:28 05/08/21 17:45 05/08/21 20:00 Temperature 36.3 C L Pulse Rate 78 72 75 Respiratory Rate 18 20 Blood Pressure 107/57 L Pulse Oximetry 100 100 05/08/21 21:54 05/08/21 22:00 05/09/21 07:34 Temperature 36.7 C Pulse Rate 75 67 75 Respiratory Rate 20 20 18 Blood Pressure 100/43 L Pulse Oximetry 98 05/09/21 07:36 05/09/21 07:47 05/09/21 08:37 Temperature Pulse Rate 77 70 Respiratory Rate 18 Blood Pressure Pulse Oximetry 93 05/09/21 08:47 Temperature Pulse Rate 70 Respiratory Rate Blood Pressure Pulse Oximetry Intake/Output Intake/Output: Intake & Output 05/06/21 05/07/21 05/08/21 05/09/21 23:59 23:59 23:59 23:59 Intake Total 1850 2990 2430 1390 Output Total 314 794 7194 700 Balance 1250 2190 -70 690 Meds/Results Medications: Active Medications Generic Name Dose Route Start Last Admin Trade Name Júniorq PRN Reason Stop Dose Admin Acetaminophen 500 mg 05/02/21 22:59 05/06/21 12:37 Acetaminophen 500 Mg Tablet PO 500 mg Q6H PRN Administration Pain Rated 1-3 Albuterol 2.5 mg 05/03/21 01:20 Albuterol Sulfate Neb 2.5 Mg/0.5 Ml Inh INHALATION Q6H PRN Shortness Of Breath Amiodarone HCl 200 mg 05/03/21 08:00 05/09/21 08:37 Amiodarone Hcl 200 Mg Tablet PO 200 mg DAILY@0800 NEW Administration Artificial Tears 1 drop 05/03/21 09:00 05/09/21 08:30 Artificial Tears Ophth Soln 15 Ml Bottle EACH EYE 1 drop BID NEW Administration Atorvastatin Calcium 40 mg 05/03/21 21:00 05/08/21 21:18 Atorvastatin 40 Mg Tablet PO 40 mg HS NEW Administration Bisacodyl 5 mg 05/06/21 15:40 05/09/21 08:31 Bisacodyl 5 Mg Tablet Ec PO Not Given QAM NEW Bisacodyl 5 mg 05/08/21 12:06 05/09/21 05:06 Bisacodyl 5 Mg Tablet Ec PO 5 mg QAM PRN Administration Constipation Budesonide 0.5 mg 05/03/21 08:00 05/09/21 07:33 Budesonide Respule Neb 0.5 Mg/2 Ml Amp INHALATION 0.5 mg Q12HRT NEW Administration Calcium Carbonate 200 mg 05/05/21 22:00 05/07/21 20:22 Calcium Carbonate (Tums) 500 Mg (200 Mg Elemental) PO 200 mg Q6H PRN Administration Indigestion Carvedilol 3.125 mg 05/03/21 08:00 05/09/21 08:47 Carvedilol 3.125 Mg Tablet PO Not Given BIDWM NEW Dextrose 12.5 gm 05/02/21 22:56 Dextrose 50% 25 Gm/50 Ml Syringe IV PUSH PRN PRN Hypoglycemia Protocol Docusate Sodium 100 mg 05/04/21 21:00 05/09/21 08:31 Docusate Sodium 100 Mg Capsule PO Not Given Q12HR NEW Enoxaparin Sodium 40 mg 05/03/21 09:00 05/09/21 08:30 Enoxaparin 40 Mg/0.4 Ml [place]
[2021-05-09 16:45] LABS: Glucose Point of Care 107 mg/dl (65-105)
[2021-05-09] MEDS: carvediloL 3.125 MG TABLET PO (17:34)
[2021-05-09] MEDS: SACCHAROMYCES BOULARDII 250 MG CAPSULE PO (17:34)
[2021-05-09] MEDS: ATORVASTATIN 40 MG TABLET PO (21:13)
[2021-05-09] MEDS: INSULIN GLARGINE (*BKC) 100 UNITS/ML 20 UNITS SUB-Q (21:13)
[2021-05-09] MEDS: DOCUSATE SODIUM 100 MG CAPSULE PO (21:13)
[2021-05-10] VITALS (13 sets, daily range): BP systolic 103–126; BP diastolic 44–52; PULSE 68–85; RESP 18–30; TEMP 36.1–36.2; O2SAT 94–97
[2021-05-10 02:09] LABS: Glucose Point of Care 137 mg/dl (65-105)
[2021-05-10 05:43] LABS: Hematocrit 29.1 % (37.0-47.0); Hemoglobin 8.6 g/dL (12.0-15.0); Mean Corpuscular HGB Conc 29.6 g/dl (32-36); Mean Corpuscular Hemoglobin 28.8 pg (26-34); Mean Corpuscular Volume 97.3 fl (80-100); Platelet Count Result 279 k/mm3 (150-375); Red Blood Count 2.99 M/mm3 (4.2-5.4); Red Cell Distribution Width 16.2 % (11.5-14.5); White Blood Count 16.8 K/mm3 (4.5-10.0)
[2021-05-10 05:54] LABS: Anion Gap 4 mmol/L (8-16); Blood Urea Nitrogen 21 mg/dL (7-17); Calcium 8.5 mg/dL (8.4-10.2); Carbon Dioxide 32 mmol/L (22-30); Chloride 97 mmol/L (98-107); Estimated CRCL calculation 54 ml/min; Estimated Glomerular Filt Rate 60; Glucose 105 mg/dL (65-110); Potassium 4.3 mmol/L (3.4-5.0); Sodium 133 mmol/L (137-145)
[2021-05-10 06:02] LABS: NT Pro B Type Natriuretic Pept 8220 pg/mL (5-100)
[2021-05-10] MEDS: BUDESONIDE RESPULE NEB 0.5 MG/2 ML AMP INHALATION ×2 (07:22→20:01)
[2021-05-10] MEDS: FLUTICASONE/SALMETEROL 115-21 MCG INHALER 1 PUFF 2 PUFF INHALATION ×2 (07:22→20:03)
[2021-05-10 07:49] LABS: Glucose Point of Care 69 mg/dl (65-105)
--- NOTE | 2021-05-10 07:58 | PC.NURSE ---
patient blood sugar 69. Refused oral glucose gel. Apple juice was given and will recheck blood sugar in 15 minutes.
--- NOTE | 2021-05-10 09:20 | P.PNIM_ITS ---
Progress Note: A&P Assessment and Plan (1) Amputation stump infection: Code(s): T87.40 - Infection of amputation stump, unspecified extremity Status: Acute Assessment and Plan: * CT showed tibial stump suspicious of osteomyelitis * 3 wounds present 0.5 x 0.5 scabbed outer lateral 0.5 mining with purulent drainage * Ortho Dr. Huerta revision and consult/following patient * POD #5: Left BKA Revision : surgical procedure done May 04, then wound VAC attached, now would vac off, gauze dressing intact. * Wound Nurse doing dressing changes. * Imipenem 500mg IV q8hr, vancomycin 1500 mg q.18 hours * WBC increasing now, was 14.1 then 15.9, today 17. 2 (highest during this admission) * Infectious Disease physician following patient * repeat labs in the a.m. * wound cultures + MRSA * blood cultures on 05/02 no growth, repeat blood cultures on 05/09 due to elevated WBC count and uncontrolled pain at site. * Surgical pathology from 05/04 still pending. * diabetic carb consistent diet - glucose levels 144, 171, 85, controlled at this time. * DVTprophylaxis, Lovenox 40 mg daily * Care coordination has been consulted to find a board for the wheel chair to help with healing. * Patient to begin stump protector * Elevate stump on pillows. * improve PRN Pain control. (2) Insulin dependent type 2 diabetes mellitus: Code(s): E11.9 - Type 2 diabetes mellitus without complications; Z79.4 - termination clerk (current) use of insulin Status: Acute Assessment and Plan: * A1c 6.5 * diabetic carb consistent diet * glucose levels have been under 100 per POC * continue home Lantus 30 units q.a.m., Lantus 20 units q.h.s. * Hold home aspart 6 units with meals * continue sliding scale * hypoglycemic protocol * labs in the a.m. * keep controlled for best amputation/surgical healing (3) Chronic kidney disease: Code(s): N18.9 - Chronic kidney disease, unspecified Status: Acute Assessment and Plan: * creatinine 0.9 today improved. * limit the use of nephrotoxic medications * give IV antibiotics/ medications per renal dosing * trend BUN and creatinine * labs in the a.m. * continue to encourage adequate oral hydration, strict I/Os. (4) Chronic anemia: Code(s): D64.9 - Anemia, unspecified Status: Acute Assessment and Plan: * Hgb stable at 8.6, Hematocrit stable at 29.1 * stable at this time * continue daily iron dosing * labs in the a.m., may need to check iron/ferritin levels. * transfuse as needed (5) Chronic obstructive pulmonary disease: Code(s): J44.9 - Chronic obstructive pulmonary disease, unspecified Status: Acute Assessment and Plan: * no signs and symptoms of exacerbation * Pulmicort nebs Q 12 scheduled, Advair inhaler 2 puffs Q 12, albuterol nebs Q 6 p.r.n., Atrovent q.6 p.r.n. * supplemental oxygen to maintain SpO2 greater than 90%, chronic home O2 use at 2 L * avoid over exertion * avoid laying flat on back for prolonged periods of time - may become hypoxemic (6) Congestive heart failure: Code(s): I50.9 - Heart failure, unspecified Status: Acute Assessment and Plan: * stable at this time * no edema noted * EF 55-60%, pulmonary hypertension on echo from 09/2020 * continue home Lasix 20 mg p.o. daily, carvedilol 3.125 mg p.o. b.i.d. * trend I&Os * BNP this am was 8220 * One time 40mg IV lasix * adjust medications as needed (7) Par
--- NOTE | 2021-05-10 09:20 | PM.IMPN ---
Progress Note: A&P Assessment and Plan (1) Amputation stump infection: Code(s): T87.40 - Infection of amputation stump, unspecified extremity Status: Acute Assessment and Plan: CT showed tibial stump suspicious of osteomyelitis 3 wounds present 0.5 x 0.5 scabbed outer lateral 0.5 mining with purulent drainage Ortho Dr. Huerta revision and consult/following patient POD #5: Left BKA Revision : surgical procedure done May 04, then wound VAC attached, now would vac off, gauze dressing intact. Wound Nurse doing dressing changes. Imipenem 500mg IV q8hr, vancomycin 1500 mg q.18 hours WBC increasing now, was 14.1 then 15.9, today 17. 2 (highest during this admission) Infectious Disease physician following patient repeat labs in the a.m. wound cultures + MRSA blood cultures on 05/02 no growth, repeat blood cultures on 05/09 due to elevated WBC count and uncontrolled pain at site. Surgical pathology from 05/04 still pending. diabetic carb consistent diet - glucose levels 144, 171, 85, controlled at this time. DVTprophylaxis, Lovenox 40 mg daily Care coordination has been consulted to find a board for the wheel chair to help with healing. Patient to begin stump protector Elevate stump on pillows. improve PRN Pain control. (2) Insulin dependent type 2 diabetes mellitus: Code(s): E11.9 - Type 2 diabetes mellitus without complications; Z79.4 - [facility] (current) use of insulin Status: Acute Assessment and Plan: A1c 6.5 diabetic carb consistent diet glucose levels have been under 100 per POC continue home Lantus 30 units q.a.m., Lantus 20 units q.h.s. Hold home aspart 6 units with meals continue sliding scale hypoglycemic protocol labs in the a.m. keep controlled for best amputation/surgical healing (3) Chronic kidney disease: Code(s): N18.9 - Chronic kidney disease, unspecified Status: Acute Assessment and Plan: creatinine 0.9 today improved. limit the use of nephrotoxic medications give IV antibiotics/ medications per renal dosing trend BUN and creatinine labs in the a.m. continue to encourage adequate oral hydration, strict I/Os. (4) Chronic anemia: Code(s): D64.9 - Anemia, unspecified Status: Acute Assessment and Plan: Hgb stable at 8.6, Hematocrit stable at 29.1 stable at this time continue daily iron dosing labs in the a.m., may need to check iron/ferritin levels. transfuse as needed (5) Chronic obstructive pulmonary disease: Code(s): J44.9 - Chronic obstructive pulmonary disease, unspecified Status: Acute Assessment and Plan: no signs and symptoms of exacerbation Pulmicort nebs Q 12 scheduled, Advair inhaler 2 puffs Q 12, albuterol nebs Q 6 p.r.n., Atrovent q.6 p.r.n. supplemental oxygen to maintain SpO2 greater than 90%, chronic home O2 use at 2 L avoid over exertion avoid laying flat on back for prolonged periods of time - may become hypoxemic (6) Congestive heart failure: Code(s): I50.9 - Heart failure, unspecified Status: Acute Assessment and Plan: stable at this time no edema noted EF 55-60%, pulmonary hypertension on echo from 09/2020 continue home Lasix 20 mg p.o. daily, carvedilol 3.125 mg p.o. b.i.d. trend I&Os BNP this am was 8220 One time 40mg IV lasix adjust medications as needed (7) Paroxysmal atrial fibrillation: Onset Date: 09/2020 Code(s): I48.0 - Paroxysmal atrial fibrillation Status: Acute Assessment and Plan: chronic EKG from December shows sinus rhythm in the 90 current heart rate is controlled at 67-70 continue home amiodarone 200 mg p.o. daily, continue carvedilol 3.125 p.o. b.i.d.(as BPs allow the coreg dosing) monitor for any changes (8) Wound dehiscence: Code(s): T81.30XA - Disruption of wound, unspecified, ini
[2021-05-10 09:32] LABS: Glucose Point of Care 167 mg/dl (65-105)
[2021-05-10] MEDS: FUROSEMIDE INJ 40 MG/4 ML VIAL IV PUSH (09:32)
[2021-05-10] MEDS: PANTOPRAZOLE 40 MG TABLET PO (09:32)
[2021-05-10] MEDS: BISACODYL 5 MG TABLET EC PO (09:32)
[2021-05-10] MEDS: POTASSIUM CHLORIDE 20 MEQ TABLET.ER PO (09:32)
[2021-05-10] MEDS: FUROSEMIDE 20 MG TABLET PO (09:32)
[2021-05-10] MEDS: guaiFENesin 12 HR 600 MG TABCR PO ×2 (09:32→21:07)
[2021-05-10] MEDS: SACCHAROMYCES BOULARDII 250 MG CAPSULE PO ×2 (09:32→16:53)
[2021-05-10] MEDS: POLYSACCHARIDE IRON COMPLEX 150 MG CAPSULE PO (09:32)
[2021-05-10] MEDS: DOCUSATE SODIUM 100 MG CAPSULE PO ×2 (09:33→21:07)
[2021-05-10] MEDS: AMIODARONE HCL 200 MG TABLET PO (09:33)
[2021-05-10] MEDS: carvediloL 3.125 MG TABLET PO ×2 (09:34→16:53)
[2021-05-10] MEDS: ARTIFICIAL TEARS OPHTH SOLN 15 ML BOTTLE 1 DROP EACH EYE ×2 (09:34→16:53)
[2021-05-10] MEDS: INSULIN GLARGINE (*BKC) 100 UNITS/ML 30 UNITS SUB-Q (09:34)
[2021-05-10] MEDS: ENOXAPARIN 40 MG/0.4 ML SYRINGE SUB-Q (09:34)
--- NOTE | 2021-05-10 10:01 | PCNWS ---
Weekly nutritional screen. Patient is tolerating current diet-DBCC with Glucerna shakes BID with adequate [id number]% of meals. No weight loss reported. No further nutritional needs at this time.
[2021-05-10 11:40] LABS: Glucose Point of Care 192 mg/dl (65-105)
--- NOTE | 2021-05-10 15:15 | PM.PNORT ---
Progress Note: A&P Assessment and Plan (1) Amputation stump infection: Code(s): T87.40 - Infection of amputation stump, unspecified extremity Status: Acute Assessment and Plan: 6 days status post revision left below-knee amputation. No signs of osteomyelitis at the time of surgery. Incision benign at this time. No evidence of infection. Continue with daily dressing changes. Stump protector for when patient out of bed. Elevated white count noted. Will check UA for possible source. Subjective Subjective Date/Time Seen: 05/10/21 15:15 Post Op day: 6 Principal diagnosis: Left below-knee amputation Interval history: patient without pain. Some shortness of breath noted as well as labored breathing. Patient tolerating diet. Exam Const: General: healthy appearing; No in distress or confusion Orientation/consciousness: patient oriented x3 and No confusion HENMT: Head: normal to inspection, normocephalic and atraumatic Eyes: Conjunctivae: conjunctivae normal Sclera: sclerae normal Resp: Effort & Inspection: normal respiratory effort and no audible wheezes Cardio: Rate: regular rate Rhythm: regular rhythm GI: Inspection: non-distended GI Palp: Yes Soft to palpation, No Firmness to palpation present (GI), No Tenderness to palpation present (GI) and No Guarding due to palpation present (GI) Skin: General skin exam: no erythema Wounds: wounds noted ( See below) Neuro: General: patient oriented x3 and No confusion Cognition (Neuro): normal cognition Speech: normal speech Extrem: Right lower extremity: knee ( right BKA) Left lower extremity: lower leg ( Dressing in place, clean dry and intact) Psych: Affect: normal affect Objective Data Vital Signs Vital Signs: Vital Signs - 24 hr 05/09/21 17:34 05/09/21 19:39 05/09/21 19:49 Temperature Pulse Rate 80 72 76 Respiratory Rate 18 18 Blood Pressure Pulse Oximetry 05/09/21 20:00 05/09/21 21:09 05/10/21 04:56 Temperature 96.8 F L 96.9 F L Pulse Rate 73 74 Respiratory Rate 20 22 H Blood Pressure 110/46 L 126/52 L Pulse Oximetry 100 100 97 05/10/21 07:23 05/10/21 07:25 05/10/21 09:33 Temperature Pulse Rate 74 68 Respiratory Rate 18 Blood Pressure Pulse Oximetry 95 05/10/21 09:34 07/21/21 09:50 05/10/21 14:00 Temperature 97.2 F L Pulse Rate 68 82 Respiratory Rate 18 Blood Pressure 113/46 L Pulse Oximetry 96 96 Intake/Output Intake/Output: Intake & Output 05/07/21 05/08/21 05/09/21 05/10/21 23:59 23:59 23:59 23:59 Intake Total 2990 2430 2410 1320 Output Total 800 2500 2000 Balance 2190 -70 410 1320 Meds/Results Medications: Active Medications Generic Name Dose Route Start Last Admin Trade Name Freq PRN Reason Stop Dose Admin Acetaminophen 500 mg 05/02/21 22:59 05/06/21 12:37 Acetaminophen 500 Mg Tablet PO 500 mg Q6H PRN Administration Pain Rated 1-3 Albuterol 2.5 mg 05/03/21 01:20 Albuterol Sulfate Neb 2.5 Mg/0.5 Ml Inh INHALATION Q6H PRN Shortness Of Breath Amiodarone HCl 200 mg 05/03/21 08:00 05/10/21 09:33 Amiodarone Hcl 200 Mg Tablet PO 200 mg DAILY@0800 NEW Administration Artificial Tears 1 drop 05/03/21 09:00 05/10/21 09:34 Artificial Tears Ophth Soln 15 Ml Bottle EACH EYE 1 drop BID NEW Administration Atorvastatin Calcium 40 mg 05/03/21 21:00 05/09/21 21:13 Atorvastatin 40 Mg Tablet PO 40 mg HS NEW Administration Bisacodyl 5 mg 05/06/21 15:40 05/10/21 09:32 Bisacodyl 5 Mg Tablet Ec PO 5 mg QAM NEW Administration Bisacodyl 5 mg 05/08/21 12:06 05/09/21 05:06 Bisacodyl 5 Mg Tablet Ec PO 5 mg QAM PRN Administration Constipation Budesonide 0.5 mg 05/03/21 08:00 05/10/21 07:22 Budesonide Respule Neb 0.5 Mg/2 Ml Amp INHALATION 0.5 mg Q12HRT NEW Administration Calcium Carbonate 200 mg 05/05/21 22:00 05/07/21 20:22 Calcium Carbonate (Tums) 500 Mg (200 Mg
--- NOTE | 2021-05-10 15:31 | PCPTNOTE ---
Patient declined PT this afternoon stating she was feeling SOB. PT will continue to PT per plan of care.
[2021-05-10] MEDS: ALBUTEROL SULFATE NEB 2.5 MG/0.5 ML INH INHALATION (15:44)
[2021-05-10] MEDS: IPRATROPIUM BR 0.02% INH SOLN 0.5 MG/2.5 ML VIAL INHALATION (15:44)
[2021-05-10] MEDS: CALCIUM CARBONATE (TUMS) 500 MG (200 MG ELEMENTAL) PO (15:48)
[2021-05-10 15:59] LABS: Add Urine Microscopic? NO; Appearance Urine Clear (Clear); Bilirubin Urine Negative (Negative); Blood Urine Negative (Negative); Color Urine Straw (Yellow); Glucose Urine UA Negative (Negative); Ketones Urine Negative (Negative); Leukocyte Esterase Ur Negative LEU/UL (Negative); Nitrate Urine Negative (Negative); Protein Urine Negative (Negative); Specific Grav Ur 1.008 (1.001-1.035); Urobilinogen Urine Negative mg/dL (<2.0)
[2021-05-10 18:31] LABS: Glucose Point of Care 205 mg/dl (65-105)
[2021-05-10] MEDS: INSULIN ASPART (*BKC) 100 UNITS/ML SUB-Q (18:40)
[2021-05-10] MEDS: ATORVASTATIN 40 MG TABLET PO (21:07)
[2021-05-10] MEDS: INSULIN GLARGINE (*BKC) 100 UNITS/ML 20 UNITS SUB-Q (21:10)
[2021-05-10 21:53] LABS: Glucose Point of Care 308 mg/dl (65-105)
[2021-05-11] VITALS (8 sets, daily range): BP systolic 107–139; BP diastolic 47–61; PULSE 67–86; RESP 17–24; TEMP 35.8–36.1; O2SAT 95–100
--- NOTE | 2021-05-11 | ECHO_ITS ---
Patient Info Name: Owen Escobar Age: 81 years : 1940 Gender: Female Ht: 65 in Wt: 232 lbs BSA: 2.25 m2 BP: 139 / 61 mmHg Technical Quality: Poor Exam Date: 05/11/2021 10:35 AM Exam Location: [facility] Patient Status: Inpatient Admit Date: 05/03/2021 Staff Ordering Physician: Erwin Pérez [employer] Supervisor: Mildred Pierson RDCS Attending Provider: Sabrina Banks NP Referring Physician: Beto HERNANDEZ; Exam Type: CA echo dop color flow w con Study Info Indications R07.9 - Chest pain, unspecified - ELEVATED TROPONIN Complete two-dimensional, color flow and Doppler transthoracic echocardiogram is performed with contrast to opacify the left ventricle and to improve the deliniation of the left ventricle endocardial borders. Contrast/Agitated Saline Contrast/Ag. Saline: Definity Amount: 1.00 ml Administered By: Megha Zarate RN Existing IV Access: Yes IV Access Condition: patent with no signs of infiltration Reason for Poor Study: patient body habitus Summary 1. Left ventricular systolic function is moderately reduced, estimated at 30-35%. 2. There is moderately increased left ventricular wall thickness. 3. Left ventricular chamber dimension is mildly enlarged. 4. The left ventricular diastolic function is grade III diastolic dysfunction. 5. E/e' 22.00 is elevated. 6. There is mild aortic valve calcification. 7. There is no aortic valve regurgitation. 8. There is no aortic valve stenosis. 9. There is mild tricuspid valve regurgitation. 10. Severe pulmonary hypertension, estimated pulmonary arterial systolic pressure is 59 mmHg. Left Ventricle Left ventricular chamber dimension is mildly enlarged. Left ventricular systolic function is moderately reduced, estimated at 30-35%. There is moderately increased left ventricular wall thickness. The left ventricular diastolic function is grade III diastolic dysfunction. E/e' 22.00 is elevated. Right Ventricle Right ventricular chamber dimension is normal. Right ventricular systolic function is normal. Left Atria Left atrial chamber dimension is normal. Right Atria Right atrial chamber dimension is normal. Aortic Valve The aortic valve is trileaflet. There is no aortic valve stenosis. There is no aortic valve regurgitation. There is mild aortic valve calcification. Pulmonic Valve The pulmonic valve is normal. There is no pulmonic valve stenosis. There is no pulmonic regurgitation. Mitral Valve The mitral valve has normal leaflets. There is no mitral valve stenosis. There is no mitral valve regurgitation. Tricuspid Valve The tricuspid valve leaflets are normal. There is no significant tricuspid valve stenosis. There is mild tricuspid valve regurgitation. Severe pulmonary hypertension, estimated pulmonary arterial systolic pressure is 59 mmHg. Pericardium/Pleural The pericardium appears normal. There is no pericardial effusion. Inferior Vena Cava Normal inferior vena cava with >50% collapse upon inspiration consistent with Empty right atrial pressure, 10 mmHg. Aorta The aortic root size at the sinus of Valsalva is normal. The prox ascending aorta size is normal. Left Ventricular Outflow Tract Name Value Normal
--- NOTE | 2021-05-11 01:22 | ECG_ITS ---
Measurements Intervals [place] Rate: 92 P: 50 NC: 218 QRS: -36 QRSD: 185 T: 130 QT: 422 QTc: 523 Interpretive Statements SINUS RHYTHM WITH FIRST DEGREE AV BLOCK LEFT AXIS DEVIATION LEFT BUNDLE BRANCH BLOCK BASELINE ARTIFACT- I, II, III, AVR, AVL, AVF, V6 ABNORMAL ECG Electronically Signed On 05-11-2021 6:30:41 CDT by Stephen Peralta D.O.
[2021-05-11 01:23] LABS: Glucose Point of Care 260 mg/dl (65-105)
[2021-05-11] MEDS: NITROGLYCERIN SL 0.4 MG TABLET (01:26)
[2021-05-11] MEDS: NITROGLYCERIN SL 0.4 MG TABLET SUBLINGUAL (01:45)
--- NOTE | 2021-05-11 02:26 | PC.NURSE ---
called to patient room at 0110 with patient c/o of mid sternal/epigastric chest discomfort rated as 8/10. and described as pressure/tightness. appears dyspneac with rate of 24/min and auditory wheezes. lung sounds diminished and clear however. spo2 95% on 2l/nc. bp141/60 p94. t96.1. diaphoretic. bs 260. called and reported to dr aguilera. orders recieved. first dose ntg sl improved discomfort to 5/8 and bp tolerated ntg.at 138/70. patient reported relief after second ntg. stat ekg unchanged from 05/04/2021.
[2021-05-11 05:37] LABS: Hematocrit 30.1 % (37.0-47.0); Hemoglobin 9.1 g/dL (12.0-15.0); Mean Corpuscular HGB Conc 30.2 g/dl (32-36); Mean Corpuscular Hemoglobin 28.9 pg (26-34); Mean Corpuscular Volume 95.6 fl (80-100); Platelet Count Result 343 k/mm3 (150-375); Red Blood Count 3.15 M/mm3 (4.2-5.4); White Blood Count 20.7 K/mm3 (4.5-10.0)
[2021-05-11 05:50] LABS: Anion Gap 9 mmol/L (8-16); Blood Urea Nitrogen 20 mg/dL (7-17); Calcium 8.9 mg/dL (8.4-10.2); Carbon Dioxide 32 mmol/L (22-30); Chloride 91 mmol/L (98-107); Estimated CRCL calculation 49 ml/min; Estimated Glomerular Filt Rate 53; Glucose 237 mg/dL (65-110); Potassium 4.4 mmol/L (3.4-5.0); Sodium 132 mmol/L (137-145)
[2021-05-11 05:58] LABS: NT Pro B Type Natriuretic Pept 11000 pg/mL (5-100)
[2021-05-11 07:17] LABS: Troponin I 0.247 ng/mL (0.000-0.034)
--- NOTE | 2021-05-11 07:46 | P.PNIM_ITS ---
Progress Note: A&P Assessment and Plan (1) Chest pain: Code(s): R07.9 - Chest pain, unspecified Status: Acute Assessment and Plan: * Substernal chest pain overnight, relieved by 2 nitro * Repeat EKG shows slight ST elevation in V1-3 * Troponin elevated 0.247 repeat at 0930 * [place] [address] * Cardiology consulted-thank you for your recommendations * Echo ordered and pending * VS stable * K 4.4, mg ordered * WBC is elevated at 20.7 (2) Amputation stump infection: Code(s): T87.40 - Infection of amputation stump, unspecified extremity Status: Acute Assessment and Plan: * CT showed tibial stump suspicious of osteomyelitis * 3 wounds present 0.5 x 0.5 scabbed outer lateral 0.5 mining with purulent drainage * Ortho Dr. Huerta revision and consult/following patient * POD #5: Left BKA Revision : surgical procedure done May 04, then wound VAC attached, now would vac off, gauze dressing intact. * Wound Nurse doing dressing changes. * Imipenem 500mg IV q8hr, vancomycin 1500 mg q.18 hours * WBC increasing now, 20.7 * Infectious Disease physician following patient * repeat labs in the a.m. * wound cultures + MRSA * blood cultures on 05/02 no growth, repeat blood cultures on 05/09 due to elevated WBC count and uncontrolled pain at site. * Surgical pathology from 05/04 still pending. * diabetic carb consistent diet - glucose levels 144, 171, 85, controlled at this time. * DVTprophylaxis, Lovenox 40 mg daily * Care coordination has been consulted to find a board for the wheel chair to help with healing. * Patient to begin stump protector * Elevate stump on pillows. * improve PRN Pain control. (3) Insulin dependent type 2 diabetes mellitus: Code(s): E11.9 - Type 2 diabetes mellitus without complications; Z79.4 - alf (current) use of insulin Status: Acute Assessment and Plan: * A1c 6.5 * diabetic carb consistent diet * glucose levels have been under 100 per POC * continue home Lantus 30 units q.a.m., Lantus 20 units q.h.s. * Hold home aspart 6 units with meals * continue sliding scale * hypoglycemic protocol * labs in the a.m. * keep controlled for best amputation/surgical healing (4) Chronic kidney disease: Code(s): N18.9 - Chronic kidney disease, unspecified Status: Acute Assessment and Plan: * creatinine 1.00 today * limit the use of nephrotoxic medications * give IV antibiotics/ medications per renal dosing * trend BUN and creatinine * labs in the a.m. * continue to encourage adequate oral hydration, strict I/Os. (5) Chronic anemia: Code(s): D64.9 - Anemia, unspecified Status: Acute Assessment and Plan: * Hgb stable at 9.1, Hematocrit stable at 30.1 * stable at this time * continue daily iron dosing * labs in the a.m., may need to check iron/ferritin levels. * transfuse as needed (6) Chronic obstructive pulmonary disease: Code(s): J44.9 - Chronic obstructive pulmonary disease, unspecified Status: Acute Assessment and Plan: * no signs and symptoms of exacerbation * Pulmicort nebs Q 12 scheduled, Advair inhaler 2 puffs Q 12, albuterol nebs Q 6 p.r.n., Atrovent q.6 p.r.n. * supplemental oxygen to maintain SpO2 greater than 90%, chronic home O2 use at 2 L * avoid over exertion * avoid laying flat on back for prolonged periods of time - may become hypoxemic (7) Congestive heart failure:
--- NOTE | 2021-05-11 07:46 | PM.IMPN ---
Progress Note: A&P Assessment and Plan (1) Chest pain: Code(s): R07.9 - Chest pain, unspecified Status: Acute Assessment and Plan: Substernal chest pain overnight, relieved by 2 nitro Repeat EKG shows slight ST elevation in V1-3 Troponin elevated 0.247 repeat at 0930 [place] [address] Cardiology consulted-thank you for your recommendations Echo ordered and pending VS stable K 4.4, mg ordered WBC is elevated at 20.7 (2) Amputation stump infection: Code(s): T87.40 - Infection of amputation stump, unspecified extremity Status: Acute Assessment and Plan: CT showed tibial stump suspicious of osteomyelitis 3 wounds present 0.5 x 0.5 scabbed outer lateral 0.5 mining with purulent drainage Ortho Dr. Huerta revision and consult/following patient POD #5: Left BKA Revision : surgical procedure done May 04, then wound VAC attached, now would vac off, gauze dressing intact. Wound Nurse doing dressing changes. Imipenem 500mg IV q8hr, vancomycin 1500 mg q.18 hours WBC increasing now, 20.7 Infectious Disease physician following patient repeat labs in the a.m. wound cultures + MRSA blood cultures on 05/02 no growth, repeat blood cultures on 05/09 due to elevated WBC count and uncontrolled pain at site. Surgical pathology from 05/04 still pending. diabetic carb consistent diet - glucose levels 144, 171, 85, controlled at this time. DVTprophylaxis, Lovenox 40 mg daily Care coordination has been consulted to find a board for the wheel chair to help with healing. Patient to begin stump protector Elevate stump on pillows. improve PRN Pain control. 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 Hold home aspart 6 units with meals continue sliding scale hypoglycemic protocol labs in the a.m. keep controlled for best amputation/surgical healing (4) Chronic kidney disease: Code(s): N18.9 - Chronic kidney disease, unspecified Status: Acute Assessment and Plan: creatinine 1.00 today limit the use of nephrotoxic medications give IV antibiotics/ medications per renal dosing trend BUN and creatinine labs in the a.m. continue to encourage adequate oral hydration, strict I/Os. (5) Chronic anemia: Code(s): D64.9 - Anemia, unspecified Status: Acute Assessment and Plan: Hgb stable at 9.1, Hematocrit stable at 30.1 stable at this time continue daily iron dosing labs in the a.m., may need to check iron/ferritin levels. transfuse as needed (6) Chronic obstructive pulmonary disease: Code(s): J44.9 - Chronic obstructive pulmonary disease, unspecified Status: Acute Assessment and Plan: no signs and symptoms of exacerbation Pulmicort nebs Q 12 scheduled, Advair inhaler 2 puffs Q 12, albuterol nebs Q 6 p.r.n., Atrovent q.6 p.r.n. supplemental oxygen to maintain SpO2 greater than 90%, chronic home O2 use at 2 L avoid over exertion avoid laying flat on back for prolonged periods of time - may become hypoxemic (7) Congestive heart failure: Code(s): I50.9 - Heart failure, unspecified Status: Acute Assessment and Plan: stable at this time no edema noted EF 55-60%, pulmonary hypertension on echo from 09/2020 continue home Lasix 20 mg p.o. daily, carvedilol 3.125 mg p.o. b.i.d. trend I&Os BNP this am was 90125 One time 40mg IV lasix adjust medications as needed (8) Paroxysmal atrial fibrillation: Onset Date: 09/2020 Code(s): I48.0 - Paroxysmal atrial fibrillation Status: Acute
[2021-05-11 08:17] LABS: Magnesium 2.2 mg/dL (1.6-2.3)
--- NOTE | 2021-05-11 08:32 | PM.PNORT ---
Progress Note: A&P Assessment and Plan (1) S/P BKA (below knee amputation): Qualifiers: Laterality: left Qualified Code(s): Z89.512 - Acquired absence of left leg below knee Code(s): Z89.519 - Acquired absence of unspecified leg below knee Status: Acute Assessment and Plan: postoperative day 7 revision left below-knee amputation. White blood cell count increased to 20. Unsure of etiology. Dressing change left leg shows benign surgical site. No signs of infection. Urinalysis yesterday negative. Check chest x-ray today. ? antibiotic holiday. Appreciate cardiology. Subjective Subjective Date/Time Seen: 05/11/21 08:32 Post Op day: 7 Principal diagnosis: Left below-knee amputation Interval history: patient states breathing slightly improved today. Chest pain overnight. Troponin results noted. Urinalysis from yesterday negative for infection. Denies pain left leg. Exam Const: General: healthy appearing; No in distress or confusion Orientation/consciousness: patient oriented x3 and No confusion HENMT: Head: normal to inspection, normocephalic and atraumatic Eyes: Conjunctivae: conjunctivae normal Sclera: sclerae normal Resp: Effort & Inspection: normal respiratory effort and no audible wheezes Cardio: Rate: regular rate Rhythm: regular rhythm GI: Inspection: distended GI Palp: Yes Soft to palpation Skin: General skin exam: no erythema Wounds: wounds noted ( See below) Neuro: General: patient oriented x3 and No confusion Cognition (Neuro): normal cognition Speech: normal speech Extrem: Right lower extremity: knee ( right BKA) Left lower extremity: lower leg ( Dressing in place, clean dry and intact) Details: other ( Dressing removed. Incision clean and dry. No drainage, no erythema or ecchymosis. Mild swelling.) Psych: Affect: normal affect Objective Data Vital Signs Vital Signs: Vital Signs - 24 hr 05/10/21 09:33 05/10/21 09:34 05/10/21 09:50 Temperature Pulse Rate 68 68 Respiratory Rate Blood Pressure Pulse Oximetry 96 05/10/21 14:00 05/10/21 15:46 05/10/21 15:51 Temperature 97.2 F L Pulse Rate 82 85 85 Respiratory Rate 18 26 H 18 Blood Pressure 113/46 L Pulse Oximetry 96 05/10/21 16:53 05/10/21 20:00 05/10/21 20:09 Temperature Pulse Rate 84 75 75 Respiratory Rate 24 H 24 H Blood Pressure Pulse Oximetry 94 94 05/10/21 22:00 05/11/21 06:00 Temperature 97.0 F L 97.0 F L Pulse Rate 77 86 Respiratory Rate 18 20 Blood Pressure 103/44 L 139/61 Pulse Oximetry 96 98 Intake/Output Intake/Output: Intake & Output 05/08/21 05/09/21 05/10/21 05/11/21 23:59 23:59 23:59 23:59 Intake Total 2430 2410 1660 750 Output Total 2500 2000 120 800 Balance -70 410 1540 -50 Meds/Results Medications: Active Medications Generic Name Dose Route Start Last Admin Trade Name Freq PRN Reason Stop Dose Admin Acetaminophen 500 mg 05/02/21 22:59 05/06/21 12:37 Acetaminophen 500 Mg Tablet PO 500 mg Q6H PRN Administration Pain Rated 1-3 Albuterol 2.5 mg 05/03/21 01:20 05/10/21 15:44 Albuterol Sulfate Neb 2.5 Mg/0.5 Ml Inh INHALATION 2.5 mg Q6H PRN Administration Shortness Of Breath Amiodarone HCl 200 mg 05/03/21 08:00 05/10/21 09:33 Amiodarone Hcl 200 Mg Tablet PO 200 mg DAILY@0800 NEW Administration Artificial Tears 1 drop 05/03/21 09:00 05/10/21 16:53 Artificial Tears Ophth Soln 15 Ml Bottle EACH EYE 1 drop BID NEW Administration Atorvastatin Calcium 40 mg 05/03/21 21:00 05/10/21 21:07 Atorvastatin 40 Mg Tablet PO 40 mg HS NEW Administration Bisacodyl 5 mg 05/06/21 15:40 05/10/21 09:32 Bisacodyl 5 Mg Tablet Ec PO 5 mg QAM NEW Administration Bisacodyl 5 mg 05/08/21 12:06 05/09/21 05:06 Bisacodyl 5 Mg Tablet Ec PO 5 mg QAM PRN Administration Constipation Budesonide 0.5 mg 05/03/21 08:00 05/10/21 20:01 Budesonide Respule
[2021-05-11 09:07] LABS: Glucose Point of Care 185 mg/dl (65-105)
[2021-05-11] MEDS: DOCUSATE SODIUM 100 MG CAPSULE PO ×2 (09:18→20:49)
[2021-05-11] MEDS: guaiFENesin 12 HR 600 MG TABCR PO ×2 (09:18→20:49)
[2021-05-11] MEDS: ARTIFICIAL TEARS OPHTH SOLN 15 ML BOTTLE 1 DROP EACH EYE ×2 (09:18→17:54)
[2021-05-11] MEDS: carvediloL 3.125 MG TABLET PO ×2 (09:19→17:54)
[2021-05-11] MEDS: BISACODYL 5 MG TABLET EC PO (09:19)
[2021-05-11] MEDS: FUROSEMIDE 20 MG TABLET PO (09:19)
[2021-05-11] MEDS: POTASSIUM CHLORIDE 20 MEQ TABLET.ER PO (09:19)
[2021-05-11] MEDS: AMIODARONE HCL 200 MG TABLET PO (09:19)
[2021-05-11] MEDS: PANTOPRAZOLE 40 MG TABLET PO (09:19)
[2021-05-11] MEDS: POLYSACCHARIDE IRON COMPLEX 150 MG CAPSULE PO (09:19)
[2021-05-11] MEDS: SACCHAROMYCES BOULARDII 250 MG CAPSULE PO ×2 (09:19→17:55)
[2021-05-11] MEDS: ENOXAPARIN 40 MG/0.4 ML SYRINGE SUB-Q (09:20)
[2021-05-11] MEDS: FUROSEMIDE INJ 40 MG/4 ML VIAL IV PUSH ×2 (09:20→17:55)
[2021-05-11] MEDS: INSULIN GLARGINE (*BKC) 100 UNITS/ML 30 UNITS SUB-Q (10:18)
[2021-05-11 10:20] LABS: Troponin I 0.231 ng/mL (0.000-0.034)
--- NOTE | 2021-05-11 10:50 | PCPTNOTE ---
Attempted to see patient for PT, however patient having test at bedside. PT will follow up this afternoon.
[2021-05-11] MEDS: PERFLUTREN LIPID MICROSPHERES 1.5 ML VIAL DILUTED TO 10 ML TOTAL VOLUME IV PUSH (11:16)
[2021-05-11] MEDS: FLUTICASONE/SALMETEROL 115-21 MCG INHALER 1 PUFF 2 PUFF INHALATION (11:22)
[2021-05-11] MEDS: ALBUTEROL SULFATE NEB 2.5 MG/0.5 ML INH INHALATION (11:22)
[2021-05-11] MEDS: BUDESONIDE RESPULE NEB 0.5 MG/2 ML AMP INHALATION (11:22)
--- NOTE | 2021-05-11 11:29 | PM.CNCAR ---
Assessment and Plan Additional Plan 1- Chest pain. 2- acute systolic and diastolic heart failure exacerbation, new diagnosis. 3- elevated troponins. 4- infected left stump. 5- underlying COPD with chronic respiratory failure on home O2 6- diabetes this patient had chest pain and shortness of breath overnight. Relieved by nitroglycerin. Minimal elevation troponin. Echocardiogram shows decline in LV systolic function now 35% compared to 55% in September 2020. She does have wheezing and on x-ray there is evidence of pulmonary vascular congestion. She has elevated brain atretic peptide. -Place patient on Lasix 40 mg IV b.i.d. -1 dose of Solu-Medrol 40 mg IV. she has underlying COPD. - start aspirin 81 mg daily. -at some point patient will need ischemic evaluation if she agrees to proceed And if her condition allows. however at this time she cannot lay flat in the bed and therefore we cannot do ischemic evaluation. History of Present Illness History of Present Illness Consult date/time: date of vznoupy76/22/21 11:29 Requesting physician: Erwin Pérez APN-C Consult reason: chest pain Reason For Visit: LEFT LEG STUMP WOUND INFECTION Narrative: this is a 81-year-old female with past medical history of diabetes, hypertension, Paroxysmal atrial fibrillation who presents to the hospital because of persistent ulcer in the left amputation stump. Last echo September 2029 ejection fraction 50%. Apparently had chest pain overnight relieved by nitroglycerin. Apparently showed was having also mild shortness of breath. Today she still feeling shortness of breath. She has wheezing on physical exam. She has no chest pain at this time. I just read her echocardiogram that shows ejection fraction 35%. There is a decline in LV systolic function. EKG today reviewed analyzed by myself shows sinus tachycardia, left axis deviation and left bundle branch block. White cell count 20 K, creatinine 1, brain atretic peptide is high at 10 K, hemoglobin 9.1, troponin 0.24, 0.23 chest x-ray reviewed and has myself shows cardiomegaly and pulmonary vascular congestion. Possible right upper lobe infiltrate. Review of Systems Constitutional: Constitutional: Denies chills, Denies fever(s) and Denies poor appetite Eyes: Eyes: Denies eye discharge, Denies loss of vision, Denies eye pain and Denies photophobia ENT: Denies dizziness, Denies epistaxis, Denies nasal congestion and Denies sore throat Cardiovascular: Cardiovascular: Reports chest pain, Denies syncope, Denies pedal edema, Denies leg edema, Denies palpitations, Reports dyspnea, Reports dyspnea on exertion and Reports orthopnea Respiratory: Respiratory: Denies cough, Reports dyspnea, Reports dyspnea on exertion and Reports wheezing Gastrointestinal: Gastrointestinal: Denies abdominal pain, Denies diarrhea, Denies nausea and Denies vomiting Genitourinary: Genitourinary: Denies hematuria, Denies genital lesions and Denies dysuria Musculoskeletal: Musculoskeletal: Denies arthralgias, Denies joint swelling and Denies numbness Integumentary/Breasts: Skin/Breast: Denies pruritus and Denies rash Neurologic: Denies dizziness, Denies syncope, Denies loss of vision and Denies numbness Psychiatric: Psychiatric: Denies anxiety and Denies depression Endocrine: Endocrine: Denies cold intolerance, Denies heat intolerance and Denies palpitations Hematologic/Lymphatic: Hematologic/Lymphatic: Denies easy bleeding and Denies easy bruising Allergic/Immunologic: Allergic/Immunologic: Denies urticaria and Denies wheezing [facility] Past Medical History Medical History C. difficile colitis Chronic anemia Chronic kidney disease Chronic obstructive pulmonary disease Congestive heart failure Echocardiogram August 2020: EF of 55-60%, technically difficult to study, diastolic function abnormal, right ventricular systolic function mildly reduced, m
[2021-05-11 13:31] LABS: Glucose Point of Care 207 mg/dl (65-105)
[2021-05-11] MEDS: INSULIN ASPART (*BKC) 100 UNITS/ML SUB-Q (13:32)
[2021-05-11] MEDS: ASPIRIN 81 MG ENTERIC TABLET PO (13:39)
--- NOTE | 2021-05-11 13:56 | WPDINFPN2 ---
Progress Note: A&P Assessment and Plan (1) Amputation stump infection: Code(s): T87.40 - Infection of amputation stump, unspecified extremity Status: Acute Assessment and Plan: 1. BKA stump infection, post op and stable, MRSA isolated 2. Prior BKA 3. Leukocytosis due to #1 and due to steroids given (single doses) REC No further antibiotics. Follow WBC as the effect of her steroids wears off. Call if Qs Subjective Date/time seen: 05/11/21 13:56 Interval history: Hx reviewed, seen in past, no diarrhea no abd pain, doesn't like the food Exam Narrative: Exam Narrative: afebrile Const: General: no acute distress Neck: Neck: no JVD Resp: Effort & Inspection: normal respiratory effort Auscultation: clear to auscultation bilaterally Cardio: Rate: regular rate Rhythm: regular rhythm Heart sounds: no gallops and no murmurs GI: Inspection: non-distended GI Palp: Yes Soft to palpation, No Tenderness to palpation present (GI) and No Guarding due to palpation present (GI) Skin: General skin exam: normal color and no rashes or lesions noted Other: vac in place Objective Data Vital Signs Vital Signs: Vital Signs - 24 hr 05/10/21 14:00 05/10/21 15:46 05/10/21 15:51 Temperature 36.2 C L Pulse Rate 82 85 85 Respiratory Rate 18 26 H 18 Blood Pressure 113/46 L Pulse Oximetry 96 05/10/21 16:53 05/10/21 20:00 05/10/21 20:09 Temperature Pulse Rate 84 75 75 Respiratory Rate 24 H 24 H Blood Pressure Pulse Oximetry 94 94 05/10/21 22:00 05/11/21 06:00 05/11/21 11:22 Temperature 36.1 C L 36.1 C L Pulse Rate 77 86 86 Respiratory Rate 18 20 24 H Blood Pressure 103/44 L 139/61 Pulse Oximetry 96 98 95 05/11/21 11:33 Temperature Pulse Rate 84 Respiratory Rate 24 H Blood Pressure Pulse Oximetry 95 Intake/Output Intake/Output: Intake & Output 05/08/21 05/09/21 05/10/21 05/11/21 23:59 23:59 23:59 23:59 Intake Total 2430 2410 1660 1030 Output Total 2500 2000 120 800 Balance -70 410 1540 230 Meds/Results Medications: Active Medications Generic Name Dose Route Start Last Admin Trade Name Freq PRN Reason Stop Dose Admin Acetaminophen 500 mg 05/02/21 22:59 05/06/21 12:37 Acetaminophen 500 Mg Tablet PO 500 mg Q6H PRN Administration Pain Rated 1-3 Albuterol 2.5 mg 05/03/21 01:20 05/11/21 11:22 Albuterol Sulfate Neb 2.5 Mg/0.5 Ml Inh INHALATION 2.5 mg Q6H PRN Administration Shortness Of Breath Amiodarone HCl 200 mg 05/03/21 08:00 05/11/21 09:19 Amiodarone Hcl 200 Mg Tablet PO 200 mg DAILY@0800 NEW Administration Artificial Tears 1 drop 05/03/21 09:00 05/11/21 09:18 Artificial Tears Ophth Soln 15 Ml Bottle EACH EYE 1 drop BID NEW Administration Aspirin 81 mg 05/11/21 13:00 05/11/21 13:39 Aspirin 81 Mg Enteric Tablet PO 81 mg QAM NEW Administration Atorvastatin Calcium 40 mg 05/03/21 21:00 05/10/21 21:07 Atorvastatin 40 Mg Tablet PO 40 mg HS NEW Administration Bisacodyl 5 mg 05/06/21 15:40 05/11/21 09:19 Bisacodyl 5 Mg Tablet Ec PO 5 mg QAM NEW Administration Bisacodyl 5 mg 05/08/21 12:06 05/09/21 05:06 Bisacodyl 5 Mg Tablet Ec PO 5 mg QAM PRN Administration Constipation Budesonide 0.5 mg 05/03/21 08:00 05/11/21 11:22 Budesonide Respule Neb 0.5 Mg/2 Ml Amp INHALATION 0.5 mg Q12HRT NEW Administration Calcium Carbonate 200 mg 05/05/21 22:00 05/10/21 15:48 Calcium Carbonate (Tums) 500 Mg (200 Mg Elemental) PO 200 mg Q6H PRN Administration Indigestion Carvedilol 3.125 mg 05/03/21 08:00 05/11/21 09:19 Carvedilol 3.125 Mg Tablet PO 3.125 mg BIDWM NEW Administration Dextrose 12.5 gm 05/02/21 22:56 Dextrose 50% 25 Gm/50 Ml Syringe IV PUSH PRN PRN Hypoglycemia Protocol Docusate Sodium 100 mg 05/04/21 21:00 05/11/21 09:18 Docusate Sodium 100 Mg Capsule PO 100 mg Q12HR NEW Administration Enoxapari
[2021-05-11] MEDS: methylPREDNISolone SOD SUCC 40 MG VIAL IV PUSH (15:36)
[2021-05-11 17:41] LABS: Glucose Point of Care 133 mg/dl (65-105)
[2021-05-11] MEDS: ATORVASTATIN 40 MG TABLET PO (20:49)
[2021-05-11] MEDS: INSULIN GLARGINE (*BKC) 100 UNITS/ML 20 UNITS SUB-Q (20:51)
[2021-05-11 21:53] LABS: Glucose Point of Care 258 mg/dl (65-105)
--- NOTE | 2021-05-11 23:42 | PCRCNOTE ---
Window of time for administration has passed. See next scheduled administration.
[2021-05-12] VITALS (10 sets, daily range): BP systolic 123–127; BP diastolic 49–50; PULSE 67–83; RESP 20–21; TEMP 36; O2SAT 98–100
[2021-05-12 06:38] LABS: Hematocrit 30.2 % (37.0-47.0); Hemoglobin 8.9 g/dL (12.0-15.0); Mean Corpuscular HGB Conc 29.5 g/dl (32-36); Mean Corpuscular Hemoglobin 28.8 pg (26-34); Mean Corpuscular Volume 97.7 fl (80-100); Mean Platelet Volume 10.4 fl (7.4-10.4); Platelet Count Result 333 k/mm3 (150-375); Red Blood Count 3.09 M/mm3 (4.2-5.4); Red Cell Distribution Width 16.1 % (11.5-14.5); White Blood Count 19.9 K/mm3 (4.5-10.0)
[2021-05-12 06:47] LABS: Alanine Aminotransferase 21 U/L (4-35); Albumin Level 3.4 g/dL (3.5-5.1); Alkaline Phosphatase 146 U/L (38-126); Anion Gap 7 mmol/L (8-16); Aspartate Amino Transferase 30 U/L (14-36); Bilirubin,Total 0.5 mg/dL (0.2-1.3); Blood Urea Nitrogen 23 mg/dL (7-17); Calcium 8.9 mg/dL (8.4-10.2); Carbon Dioxide 34 mmol/L (22-30); Chloride 93 mmol/L (98-107); Estimated CRCL calculation 54 ml/min; Estimated Glomerular Filt Rate 60; Glucose 203 mg/dL (65-110); Magnesium 2.2 mg/dL (1.6-2.3); Potassium 4.4 mmol/L (3.4-5.0); Sodium 134 mmol/L (137-145)
[2021-05-12 06:52] LABS: NT Pro B Type Natriuretic Pept 12700 pg/mL (5-100)
[2021-05-12] MEDS: BUDESONIDE RESPULE NEB 0.5 MG/2 ML AMP INHALATION (07:57)
[2021-05-12] MEDS: FLUTICASONE/SALMETEROL 115-21 MCG INHALER 1 PUFF 2 PUFF INHALATION (07:57)
[2021-05-12] MEDS: ENOXAPARIN 40 MG/0.4 ML SYRINGE SUB-Q (08:27)
[2021-05-12] MEDS: ARTIFICIAL TEARS OPHTH SOLN 15 ML BOTTLE 1 DROP EACH EYE (08:30)
[2021-05-12] MEDS: SACCHAROMYCES BOULARDII 250 MG CAPSULE PO (08:31)
[2021-05-12] MEDS: carvediloL 3.125 MG TABLET PO (08:31)
[2021-05-12] MEDS: AMIODARONE HCL 200 MG TABLET PO (08:33)
[2021-05-12] MEDS: ASPIRIN 81 MG ENTERIC TABLET PO (08:34)
[2021-05-12] MEDS: DOCUSATE SODIUM 100 MG CAPSULE PO (08:34)
[2021-05-12] MEDS: PANTOPRAZOLE 40 MG TABLET PO (08:34)
[2021-05-12] MEDS: POTASSIUM CHLORIDE 20 MEQ TABLET.ER PO (08:34)
[2021-05-12] MEDS: guaiFENesin 12 HR 600 MG TABCR PO (08:34)
[2021-05-12] MEDS: POLYSACCHARIDE IRON COMPLEX 150 MG CAPSULE PO (08:34)
[2021-05-12] MEDS: BISACODYL 5 MG TABLET EC PO (08:34)
[2021-05-12] MEDS: FUROSEMIDE INJ 40 MG/4 ML VIAL IV PUSH (08:35)
[2021-05-12] MEDS: INSULIN GLARGINE (*BKC) 100 UNITS/ML 30 UNITS SUB-Q (08:49)
--- NOTE | 2021-05-12 09:03 | PM.PNORT ---
Progress Note: A&P Assessment and Plan (1) S/P BKA (below knee amputation): Qualifiers: Laterality: left Qualified Code(s): Z89.512 - Acquired absence of left leg below knee Code(s): Z89.519 - Acquired absence of unspecified leg below knee Status: Acute Assessment and Plan: postoperative day 8 revision left below-knee amputation. White blood cell count slightly decreased. Dressing change left leg shows benign surgical site. No signs of infection. Continue with daily dressing change. Up to chair as much as possible. Follow-up planned in the outpatient wound clinic May 30. Subjective Subjective Date/Time Seen: 05/12/21 09:03 Post Op day: 8 Principal diagnosis: Left BKA Interval history: patient awake and alert. States breathing better today. Mild pain left leg. Exam Const: General: healthy appearing; No in distress or confusion Orientation/consciousness: patient oriented x3 and No confusion HENMT: Head: normal to inspection, normocephalic and atraumatic Eyes: Conjunctivae: conjunctivae normal Sclera: sclerae normal Resp: Effort & Inspection: normal respiratory effort and no audible wheezes Cardio: Rate: regular rate Rhythm: regular rhythm GI: Inspection: distended GI Palp: Yes Soft to palpation Skin: General skin exam: no erythema Wounds: wounds noted ( See below) Neuro: General: patient oriented x3 and No confusion Cognition (Neuro): normal cognition Speech: normal speech Extrem: Right lower extremity: knee ( right BKA) Left lower extremity: lower leg ( Dressing in place, clean dry and intact) Details: other ( Dressing removed. Incision clean and dry. No drainage, no erythema or ecchymosis. Mild swelling.) Psych: Affect: normal affect Objective Data Vital Signs Vital Signs: Vital Signs - 24 hr 05/11/21 11:22 05/11/21 11:33 05/11/21 12:00 Temperature Pulse Rate 86 84 79 Respiratory Rate 24 H 24 H Blood Pressure Pulse Oximetry 95 95 05/11/21 14:00 05/11/21 16:00 05/11/21 20:00 Temperature 96.5 F L Pulse Rate 72 67 74 Respiratory Rate 17 Blood Pressure 122/55 L Pulse Oximetry 98 05/11/21 22:00 05/12/21 00:00 05/12/21 04:00 Temperature 96.8 F L Pulse Rate 74 81 73 Respiratory Rate 21 H Blood Pressure 107/47 L Pulse Oximetry 100 05/12/21 06:00 05/12/21 08:00 05/12/21 08:05 Temperature 96.8 F L Pulse Rate 77 78 76 Respiratory Rate 21 H 20 Blood Pressure 127/50 L Pulse Oximetry 100 98 05/12/21 08:15 05/12/21 08:31 05/12/21 08:33 Temperature Pulse Rate 83 80 80 Respiratory Rate 20 Blood Pressure Pulse Oximetry 98 Intake/Output Intake/Output: Intake & Output 05/09/21 05/10/21 05/11/21 05/12/21 23:59 23:59 23:59 23:59 Intake Total 2410 1660 2140 640 Output Total 2000 120 2300 Balance 410 1540 -160 640 Meds/Results Medications: Active Medications Generic Name Dose Route Start Last Admin Trade Name Freq PRN Reason Stop Dose Admin Acetaminophen 500 mg 05/02/21 22:59 05/06/21 12:37 Acetaminophen 500 Mg Tablet PO 500 mg Q6H PRN Administration Pain Rated 1-3 Albuterol 2.5 mg 05/03/21 01:20 05/11/21 11:22 Albuterol Sulfate Neb 2.5 Mg/0.5 Ml Inh INHALATION 2.5 mg Q6H PRN Administration Shortness Of Breath Amiodarone HCl 200 mg 05/03/21 08:00 05/12/21 08:33 Amiodarone Hcl 200 Mg Tablet PO 200 mg DAILY@0800 NEW Administration Artificial Tears 1 drop 05/03/21 09:00 05/12/21 08:30 Artificial Tears Ophth Soln 15 Ml Bottle EACH EYE 1 drop BID NEW Administration Aspirin 81 mg 05/11/21 13:00 05/12/21 08:34 Aspirin 81 Mg Enteric Tablet PO 81 mg QAM NEW Administration Atorvastatin Calcium 40 mg 05/03/21 21:00 05/11/21 20:49 Atorvastatin 40 Mg Tablet PO 40 mg HS NEW Administration Bisacodyl 5 mg 05/06/21 15:40 05/12/21 08:34 Bisacodyl 5 Mg Tablet Ec PO 5 mg QAM NEW Administration Bisacod
[2021-05-12 09:26] LABS: Glucose Point of Care 184 mg/dl (65-105)
[2021-05-12 10:27] LABS: EDCOVIDSCREEN Negative (Negative)
[2021-05-12 12:28] LABS: Glucose Point of Care 235 mg/dl (65-105)
[2021-05-12] MEDS: INSULIN ASPART (*BKC) 100 UNITS/ML SUB-Q (12:43)
--- NOTE | 2021-05-12 12:46 | P.DS_ITS ---
DS: Admitting Diagnosis Admitting Diagnosis MRSA infection of left BKA DS: Discharge Diagnosis Discharge Diagnosis (1) Chest pain: Code(s): R07.9 - Chest pain, unspecified Status: Acute Assessment and Plan: * Substernal chest pain overnight, relieved by 2 nitro * Repeat EKG shows slight ST elevation in V1-3 * Troponin elevated 0.247 repeat at 0930 * [place] [address] * Cardiology consulted-thank you for your recommendations * Echo ordered and pending * VS stable * K 4.4, mg ordered * WBC is elevated at 20.7 * has resolved * needs to follow up cardiology for ischemic work up (2) Amputation stump infection: Code(s): T87.40 - Infection of amputation stump, unspecified extremity Status: Acute Assessment and Plan: * CT showed tibial stump suspicious of osteomyelitis * 3 wounds present 0.5 x 0.5 scabbed outer lateral 0.5 mining with purulent drainage * Ortho Dr. Huerta revision and consult/following patient * POD #5: Left BKA Revision : surgical procedure done May 04, then wound VAC attached, now would vac off, gauze dressing intact. * Wound Nurse doing dressing changes. * Imipenem 500mg IV q8hr, vancomycin 1500 mg q.18 hours * WBC increasing now, 20.7 * Infectious Disease physician following patient * repeat labs in the a.m. * wound cultures + MRSA * blood cultures on 05/02 no growth, repeat blood cultures on 05/09 due to elevated WBC count and uncontrolled pain at site. * Surgical pathology from 05/04 still pending. * diabetic carb consistent diet - glucose levels 144, 171, 85, controlled at this time. * DVTprophylaxis, Lovenox 40 mg daily * Care coordination has been consulted to find a board for the wheel chair to help with healing. * Patient to begin stump protector * Elevate stump on pillows. * improve PRN Pain control. (3) Insulin dependent type 2 diabetes mellitus: Code(s): E11.9 - Type 2 diabetes mellitus without complications; Z79.4 - terminal operator (current) use of insulin Status: Acute Assessment and Plan: * A1c 6.5 * diabetic carb consistent diet * glucose levels have been under 100 per POC * continue home Lantus 30 units q.a.m., Lantus 20 units q.h.s. * Hold home aspart 6 units with meals * continue sliding scale * hypoglycemic protocol * labs in the a.m. * keep controlled for best amputation/surgical healing (4) Chronic kidney disease: Code(s): N18.9 - Chronic kidney disease, unspecified Status: Acute Assessment and Plan: * creatinine 1.00 today * limit the use of nephrotoxic medications * give IV antibiotics/ medications per renal dosing * trend BUN and creatinine * labs in the a.m. * continue to encourage adequate oral hydration, strict I/Os. (5) Chronic anemia: Code(s): D64.9 - Anemia, unspecified Status: Acute Assessment and Plan: * Hgb stable at 9.1, Hematocrit stable at 30.1 * stable at this time * continue daily iron dosing * labs in the a.m., may need to check iron/ferritin levels. * transfuse as needed (6) Chronic obstructive pulmonary disease: Code(s): J44.9 - Chronic obstructive pulmonary disease, unspecified Status: Acute Assessment and Plan: * no signs and symptoms of exacerbation * Pulmicort nebs Q 12 scheduled, Advair inhaler 2 puffs Q 12, albuterol nebs Q 6 p.r.n., Atrovent q.6 p.r.n. * supplemental oxygen to maintain SpO2 greater than 90%, chronic home O2 use at 2 L * avoid
--- NOTE | 2021-05-12 12:46 | PM.DS ---
DS: Admitting Diagnosis Admitting Diagnosis MRSA infection of left BKA DS: Discharge Diagnosis Discharge Diagnosis (1) Chest pain: Code(s): R07.9 - Chest pain, unspecified Status: Acute Assessment and Plan: Substernal chest pain overnight, relieved by 2 nitro Repeat EKG shows slight ST elevation in V1-3 Troponin elevated 0.247 repeat at 0930 [place] [address] Cardiology consulted-thank you for your recommendations Echo ordered and pending VS stable K 4.4, mg ordered WBC is elevated at 20.7 has resolved needs to follow up cardiology for ischemic work up (2) Amputation stump infection: Code(s): T87.40 - Infection of amputation stump, unspecified extremity Status: Acute Assessment and Plan: CT showed tibial stump suspicious of osteomyelitis 3 wounds present 0.5 x 0.5 scabbed outer lateral 0.5 mining with purulent drainage Ortho Dr. Huerta revision and consult/following patient POD #5: Left BKA Revision : surgical procedure done May 04, then wound VAC attached, now would vac off, gauze dressing intact. Wound Nurse doing dressing changes. Imipenem 500mg IV q8hr, vancomycin 1500 mg q.18 hours WBC increasing now, 20.7 Infectious Disease physician following patient repeat labs in the a.m. wound cultures + MRSA blood cultures on 05/02 no growth, repeat blood cultures on 05/09 due to elevated WBC count and uncontrolled pain at site. Surgical pathology from 05/04 still pending. diabetic carb consistent diet - glucose levels 144, 171, 85, controlled at this time. DVTprophylaxis, Lovenox 40 mg daily Care coordination has been consulted to find a board for the wheel chair to help with healing. Patient to begin stump protector Elevate stump on pillows. improve PRN Pain control. (3) Insulin dependent type 2 diabetes mellitus: Code(s): E11.9 - Type 2 diabetes mellitus without complications; Z79.4 - jail (current) use of insulin Status: Acute Assessment and Plan: A1c 6.5 diabetic carb consistent diet glucose levels have been under 100 per POC continue home Lantus 30 units q.a.m., Lantus 20 units q.h.s. Hold home aspart 6 units with meals continue sliding scale hypoglycemic protocol labs in the a.m. keep controlled for best amputation/surgical healing (4) Chronic kidney disease: Code(s): N18.9 - Chronic kidney disease, unspecified Status: Acute Assessment and Plan: creatinine 1.00 today limit the use of nephrotoxic medications give IV antibiotics/ medications per renal dosing trend BUN and creatinine labs in the a.m. continue to encourage adequate oral hydration, strict I/Os. (5) Chronic anemia: Code(s): D64.9 - Anemia, unspecified Status: Acute Assessment and Plan: Hgb stable at 9.1, Hematocrit stable at 30.1 stable at this time continue daily iron dosing labs in the a.m., may need to check iron/ferritin levels. transfuse as needed (6) Chronic obstructive pulmonary disease: Code(s): J44.9 - Chronic obstructive pulmonary disease, unspecified Status: Acute Assessment and Plan: no signs and symptoms of exacerbation Pulmicort nebs Q 12 scheduled, Advair inhaler 2 puffs Q 12, albuterol nebs Q 6 p.r.n., Atrovent q.6 p.r.n. supplemental oxygen to maintain SpO2 greater than 90%, chronic home O2 use at 2 L avoid over exertion avoid laying flat on back for prolonged periods of time - may become hypoxemic (7) Congestive heart failure: Code(s): I50.9 - Heart failure, unspecified Status: Acute Assessment and Plan: stable at this time no edema noted EF worsening 30-35% from 50-55% on 09/2020 continue home Lasix 20 mg p.o. daily, carvedilol 3.125 mg p.o. b.i.d. trend I&Os BNP this am was [id number] Needs to start 40mg PO lasix BID adjust medications as needed
== END 2021-05-12 15:20 | DRG 474 ==
LOC: ANHED 13:07 → ANH2MED 17:40
PROVIDERS: Nurse Practitioner; Orthopaedic Surgery; Physician Assistant; Admitting Provider Internal Medicine; Emergency Provider Emergency Medicine; PCP Internal Medicine; Visit Provider Nurse Practitioner
PROC: 0Y6J0Z3 Detachment at Left Lower Leg, Low, Open Approach (ICD-10-PCS; CPT 27882; principal; 2021-05-04 10:30)
DX: T87.44 Infection of amputation stump, left lower extremity (principal); I50.43 Acute on chronic combined systolic (congestive) and diastolic (congestive) heart failure; I13.0 Hypertensive heart and chronic kidney disease with heart failure and stage 1 through stage 4 chronic kidney disease, or unspecified chronic kidney disease; I48.20 Chronic atrial fibrillation, unspecified; J96.10 Chronic respiratory failure, unspecified whether with hypoxia or hypercapnia; B95.62 Methicillin resistant Staphylococcus aureus infection as the cause of diseases classified elsewhere; T87.81 Dehiscence of amputation stump; T87.89 Other complications of amputation stump; L89.899 Pressure ulcer of other site, unspecified stage; N18.9 Chronic kidney disease, unspecified; E11.42 Type 2 diabetes mellitus with diabetic polyneuropathy; E11.22 Type 2 diabetes mellitus with diabetic chronic kidney disease; I25.10 Atherosclerotic heart disease of native coronary artery without angina pectoris; E03.9 Hypothyroidism, unspecified; F32.9 Major depressive disorder, single episode, unspecified; D64.9 Anemia, unspecified; J44.9 Chronic obstructive pulmonary disease, unspecified; I73.9 Peripheral vascular disease, unspecified; I44.7 Left bundle-branch block, unspecified; R07.89 Other chest pain; E66.01 Morbid (severe) obesity due to excess calories; E78.5 Hyperlipidemia, unspecified; Z68.38 Body mass index [BMI] 38.0-38.9, adult; Z89.512 Acquired absence of left leg below knee; Z89.511 Acquired absence of right leg below knee; I25.2 Old myocardial infarction; Z79.4 Long term (current) use of insulin; Z95.1 Presence of aortocoronary bypass graft; Z98.42 Cataract extraction status, left eye; Z98.41 Cataract extraction status, right eye; Z87.891 Personal history of nicotine dependence; Z99.81 Dependence on supplemental oxygen
CPT/HCPCS: 36415; 71046; 73562; 80048; 80053; 80202; 81003; 82550; 82948; 83036; 83605; 83735; 83880; 84484; 85025; 85027; 85652; 86140; 87040; 87070; 87086; 87147; 87186; 87205; 87426; 88309; 88311; 93005; 94640; 96365; 96366; 96367; 96372; 97110; 97161; 97165; 97530; 99285; A9270; C8929; C9803; G0378; J0690; J0743; J1100; J1170; J1650; J1815; J1940; J2405; J2543; J2704; J2920; J3010; J3370; J7120; Q9957

== ENCOUNTER 2021-05-28 09:45 | Observation (INO) | payer OTHER, SELFPAY ==
[2021-05-28] VITALS (70 sets, daily range): BP systolic 97–121; BP diastolic 45–67; PULSE 47–72; RESP 9–25; TEMP 32.8–36.7; O2SAT 94–100; BMI 48.1
--- NOTE | ~2021-05-28 | XR_ITS ---
XR chest 1V portable 05/28/2021 10:10 Indication: Shortness of breath. Weakness. Procedure: AP portable chest Comparison: Comparison to multiple prior studies sequentially, with oldest reviewed study dated 10/2020. Findings: Status post median sternotomy for CABG. Diffuse bilateral airspace disease more confluent i n the right upper lobe. Cardiomegaly. No significant effusion or thorax. No acute osseous abnormality . Impression: 1: Diffuse bilateral airspace disease which may represent pneumonia and/or edema. Reviewed, dictated and finalized at location A. Impression: 1: Diffuse bilateral airspace disease which may represent pneumonia and/or ann a.
--- NOTE | 2021-05-28 09:49 | ECG_ITS ---
Measurements Intervals [place] Rate: 51 P: 31 MD: 227 QRS: -12 QRSD: 178 T: 151 QT: 572 QTc: 531 Interpretive Statements SINUS BRADYCARDIA WITH FIRST DEGREE AV BLOCK LEFT BUNDLE BRANCH BL ABNORMAL ECGOCK Electronically Signed On 05-28-2021 16:27:21 CDT by Stephen Peralta D.O.
--- NOTE | 2021-05-28 10:23 | PC.NURSE ---
Patient placed back on 3L via nasal cannula.
--- NOTE | 2021-05-28 10:31 | PC.NURSE ---
Per EDP Tano via verbal order read-back, start patient on fluid warmer at a rate of 125mL/hr of normal saline. EMS infused approximately 200mL fluids [employer].
[2021-05-28 10:56] LABS: Basophils Absolute Auto 0.1 K/mm3 (0.0-0.1); Basophils Percent Auto 0.9 % (0.2-1.2); Eosinophils Percent Auto 0.4 % (0-4.4); Hematocrit 27.2 % (37.0-47.0); Hemoglobin 7.9 g/dL (12.0-15.0); Immature Granulocyte Absolute 0.19 K/mm3 (0.00-0.031); Immature Granulocyte Percent A 2.4 % (0-0.5); Lymphocytes Percent Auto 7.5 % (18.3-44.2); Mean Corpuscular Hemoglobin 28.5 pg (26-34); Mean Corpuscular Volume 98.2 fl (80-100); Monocytes Absolute Auto 0.4 K/mm3 (0.1-0.6); Monocytes Percent Auto 4.8 % (2.6-8.5); Neutrophils Absolute Auto 6.7 K/mm3 (1.3-6.7); Platelet Count Result 277 k/mm3 (150-375); Red Blood Count 2.77 M/mm3 (4.2-5.4)
[2021-05-28 10:58] LABS: Add Urine Microscopic? NO; Appearance Urine Clear (Clear); Bilirubin Urine Negative (Negative); Blood Urine Negative (Negative); Color Urine Straw (Yellow); Glucose Urine UA Negative (Negative); Ketones Urine Negative (Negative); Leukocyte Esterase Ur Negative LEU/UL (Negative); Nitrate Urine Negative (Negative); Protein Urine Negative (Negative); Specific Grav Ur 1.006 (1.001-1.035); Urobilinogen Urine Negative mg/dL (<2.0)
[2021-05-28 11:02] LABS: Hypochromasia 1+ (NORMAL); Platelet Estimate Adequate (Adequate)
[2021-05-28 11:05] LABS: Alanine Aminotransferase 22 U/L (4-35); Alkaline Phosphatase 166 U/L (38-126); Anion Gap 4 mmol/L (8-16); Aspartate Amino Transferase 30 U/L (14-36); Bilirubin,Total 0.5 mg/dL (0.2-1.3); Blood Urea Nitrogen 23 mg/dL (7-17); Calcium 8.2 mg/dL (8.4-10.2); Carbon Dioxide 32 mmol/L (22-30); Chloride 104 mmol/L (98-107); Estimated Glomerular Filt Rate 43; Glucose 87 mg/dL (65-110); Sodium 140 mmol/L (137-145)
--- NOTE | 2021-05-28 11:16 | PC.NURSE ---
Temperature sensing hastings catheter placed for temperature monitoring.
[2021-05-28 11:38] LABS: Lactic Acid Reflex 1.5 mmol/L (0.7-2.1)
[2021-05-28 11:47] LABS: NT Pro B Type Natriuretic Pept 6360 pg/mL (5-100)
--- NOTE | 2021-05-28 12:38 | ED.WEAKNESS ---
HPI - Weakness General Chief complaint: Weakness Stated complaint: LOW HR,BP Time Seen by Provider: 05/28/21 09:50 History of Present Illness HPI Narrative: Patient is a 81-year-old female who presents to the ER with reports of feeling cold. Per EMS patient is bradycardic and hypotensive. They gave atropine without improvement. Patient denies any chest pain or chest pressure. Denies shortness of breath. She wears O2 chronically and has no increased requirement. Denies any new or productive cough or congestion. Recently hospitalized for prolonged period due to osteomyelitis of her left BKA. Reports no issues with the wound at this time. Related Data Home Medications Medication Instructions Recorded Confirmed atorvastatin 40 mg PO HS 10/15/20 05/02/21 amiodarone 200 mg PO QAM 10/28/20 05/02/21 carvedilol 3.125 mg PO BID 10/28/20 05/02/21 polysaccharide iron complex 150 mg PO DAILY 10/28/20 05/02/21 [Ferrex 150] Advair HFA 2 puff INHALATION BID 11/19/20 05/02/21 acetaminophen 500 mg PO Q6H PRN 11/19/20 05/02/21 insulin lispro [Humalog KwikPen 6 unit SUBCUT TIDWMEAL 11/19/20 05/02/21 Insulin] insulin lispro [Humalog KwikPen See Rx Instructions .ROUTE .COMPLEX 11/19/20 05/02/21 Insulin] ipratropium-albuterol 3 ml INHALATION Q6H PRN 11/19/20 05/02/21 potassium chloride 20 meq PO DAILY 11/19/20 05/02/21 Lantus Solostar U-100 Insulin 20 unit SUBCUT HS 01/08/21 05/02/21 Lantus Solostar U-100 Insulin 30 unit SUBCUT QAM 01/08/21 05/02/21 polyvinyl alcohol [Artificial 1 drp EACH EYE BID 01/08/21 05/02/21 Tears (polyvin alc)] simethicone 80 mg PO BID PRN 05/28/21 05/28/21 Allergies Allergy/AdvReac Type Severity Reaction Status Date / Time povidone-iodine AdvReac Mild Other Verified 05/02/21 20:52 [From Betadine] soap [From Betadine] AdvReac Mild Other Verified 05/02/21 20:52 Review of Systems Review of Systems: All systems reviewed & are unremarkable except as noted in HPI and below Constitutional: Constitutional: Reports chills, Reports fatigue, Denies fever(s) and Reports weakness ENT: Denies nasal congestion and Denies sore throat Cardiovascular: Cardiovascular: Denies chest pain, Denies rapid heart rate and Denies radiating jaw, neck or arm pain Respiratory: Respiratory: Denies cough, Denies dyspnea and Denies wheezing Gastrointestinal: Gastrointestinal: Denies abdominal pain, Denies nausea and Denies vomiting Musculoskeletal: Musculoskeletal: Denies back pain and Denies muscle cramps Neurologic: Denies syncope, Denies focal weakness and Denies numbness PMFSH Past Medical History Medical History C. difficile colitis Chronic anemia Chronic kidney disease Chronic obstructive pulmonary disease Congestive heart failure Echocardiogram August 2020: EF of 55-60%, technically difficult to study, diastolic function abnormal, right ventricular systolic function mildly reduced, [id number] tricuspid valve regurgitation, moderate pulmonary hypertension. Coronary artery disease Depression High cholesterol Hypertension Hypothyroidism Insulin dependent type 2 diabetes mellitus Hemoglobin A1c was 10.3% in August 2020. Left bundle branch block Moderate pulmonary hypertension Neuropathy NSTEMI (non-ST elevated myocardial infarction) (09/23/20) Osteomyelitis of left foot Paroxysmal atrial fibrillation (09/2020) Peripheral arterial occlusive disease Right-sided heart failure Noted on echocardiogram August 2020 with mildly reduced right ventricular systolic function. Surgical History Surgical History 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 Postop complication of wound dehiscence with wound VAC placement November 2020 History of coronary artery bypass graft x 3 (~2004) History of right below knee amputation (~
--- NOTE | 2021-05-28 12:41 | PC.NURSE ---
Warmed IV fluids stopped at this time per EDP Tano via verbal order read-back. Patient in room, alert and oriented and awake. Patient requested to sit up in bed and have tv turned on.
[2021-05-28] MEDS: FUROSEMIDE INJ 40 MG/4 ML VIAL 20 MG IV PUSH (12:48)
--- NOTE | 2021-05-28 14:44 | PC.NURSE ---
ESMER JOSE, ADDED ON RASHARD AND TSH
--- NOTE | 2021-05-28 15:00 | PM.IMHP ---
H&P: HPI History of Present Illness Date/Time: 05/28/21 15:00 Chief Complaint: Low blood pressure and heart rate. Narrative: This is a 81-year-old female with coronary artery disease, peripheral vascular disease, insulin-dependent diabetes, chronic respiratory failure on oxygen, congestive heart failure, hypertension, and hyperlipidemia who presented to the emergency department earlier today via EMS from [facility] for evaluation after she was found to have low blood pressure and heart rate. It is also been reported that the patient seems to be more fatigued and lethargic today. On EMS arrival she was bradycardic and hypotensive and was given 0.5 mg of atropine. When she got to the emergency department her only complaint was of being cold and she was cool to touch. A Lindquist catheter temperature probe was placed and her core temperature was 91.1? for which she was started on a Hank Hugger. Her CBC and chemistries were not drastically different than what they were just a couple of weeks ago when she was hospitalized for a BKA stump infection. Her TSH however was quite elevated 34 with a free T4 of 0.25. She has hypothyroidism documented in her history however I do not see that she is on medications for such. At the time my evaluation her only complaint is of being too warm under the Hank Hugger. She has not had any episodes of confusion, fever, nausea, vomiting, diarrhea, chest pain, or shortness of breath. She also denies, cold, and flu symptoms though chest x-ray today is concerning for possible pneumonia. Review of Systems Review of Systems: 12 systems were reviewed with pertinent positives and negatives as per HPI. No fever. She denies cold and flu symptoms. No chest pain or shortness of breath. No cough. No nausea, vomiting, or diarrhea. Mild dysuria. Reports stump infection has improved. States breakdown on her buttocks has been worse recently, however. Except as documented, all other systems were reviewed and are negative. [facility] Past Medical History Medical History C. difficile colitis Chronic anemia Chronic kidney disease Chronic obstructive pulmonary disease Congestive heart failure Echocardiogram August 2020: EF of 55-60%, technically difficult to study, diastolic function abnormal, right ventricular systolic function mildly reduced, [id number] tricuspid valve regurgitation, moderate pulmonary hypertension. Coronary artery disease Depression High cholesterol Hypertension Hypothyroidism Insulin dependent type 2 diabetes mellitus Hemoglobin A1c was 10.3% in August 2020. Left bundle branch block Moderate pulmonary hypertension Neuropathy NSTEMI (non-ST elevated myocardial infarction) (09/23/20) Osteomyelitis of left foot Paroxysmal atrial fibrillation (09/2020) Peripheral arterial occlusive disease Right-sided heart failure Noted on echocardiogram August 2020 with mildly reduced right ventricular systolic function. Surgical History Surgical History 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 Postop complication of wound dehiscence with wound VAC placement November 2020 History of coronary artery bypass graft x 3 (~2004) History of right below knee amputation (~08/2015) History of transmetatarsal amputation of left foot transmetatarsal amputations at the necks of the 2nd/3rd Status post cataract extraction of both eyes with insertion of intraocular lens Family History Family History Sibling Family history of cardiovascular disease Diabetes mellitus Family history of arthritis Father History of heart attack Heart attack Mother Skin cancer Sibling Diabetes mellitus Other Hypertension Social History Social History (Reviewed 05/28/21 @ 22:57 by Lenard
[2021-05-28 16:27] LABS: Free T4 Free Thyroxine Reflex 0.25 ng/dL (0.78-2.19)
--- NOTE | 2021-05-28 16:33 | PC.NURSE ---
EDP Tano notified of patient's temperature. Per EDP, okay to remove des burns.
--- NOTE | 2021-05-28 17:55 | ADMGEN ---
This patient, Owen Escobar, was admitted to IMU Room 210-01. Patient/family oriented to hospital policies and general routines including ID bracelet, bed and alarms, visiting hours, pain management, procedures, bathroom and other care routines, personal items, smoking policy, room service/diet, and visiting hours. Information on how to activate the Rapid Response Team has been discussed. Patient/Family are encouraged to report perceived risks to care and to ask questions if they do not understand what they are told or what they should do.
[2021-05-28] MEDS: FUROSEMIDE INJ 40 MG/4 ML VIAL IV PUSH (20:07)
[2021-05-28 20:28] LABS: Glucose Point of Care 83 mg/dl (65-105)
--- NOTE | 2021-05-28 21:30 | PCRCNOTE ---
pt refused to wear CPAP. per pt she prefer 2 liters oxygen like she wears at home. Education was given on how important CPAP is to her health, pt still refuse. pt on 2 liters NC, Sp02 95%. No SOB OR increased WOB present.
[2021-05-28 23:07] LABS: Glucose Point of Care 168 mg/dl (65-105)
[2021-05-29] VITALS (15 sets, daily range): BP systolic 96–122; BP diastolic 43–59; PULSE 66–77; RESP 18–20; TEMP 35.7–36.9; O2SAT 92–99
[2021-05-29] MEDS: LEVOTHYROXINE SODIUM INJ 100 MCG/5 ML VIAL IV PUSH ×2 (00:24→00:25)
[2021-05-29] MEDS: ATORVASTATIN 40 MG TABLET PO ×2 (00:24→21:01)
[2021-05-29 00:31] LABS: Anion Gap 6 mmol/L (8-16); Blood Urea Nitrogen 22 mg/dL (7-17); CRP 1.8 mg/dL (<1.0); Calcium 8.6 mg/dL (8.4-10.2); Carbon Dioxide 30 mmol/L (22-30); Chloride 102 mmol/L (98-107); Estimated CRCL calculation 39 ml/min; Estimated Glomerular Filt Rate 43; Glucose 161 mg/dL (65-110); Potassium 4.3 mmol/L (3.4-5.0); Sodium 138 mmol/L (137-145)
[2021-05-29 00:59] LABS: Procalcitonin 0.1 ng/mL; Total Triiodothyronine (T3) 0.66 NG/ML (0.97-1.69)
[2021-05-29 01:59] LABS: Hemoglobin A1C 6.6 % (<5.7)
[2021-05-29] MEDS: HYDROcodone/acetaminophen (*CRX) 5-325 MG TABLET 1 TAB PO (03:15)
[2021-05-29] MEDS: LEVOTHYROXINE SODIUM 100 MCG, LEVOTHYROXINE SODIUM 75 MCG 175 MCG PO (05:58)
[2021-05-29 09:09] LABS: Glucose Point of Care 84 mg/dl (65-105)
[2021-05-29] MEDS: INSULIN GLARGINE (*BKC) 100 UNITS/ML 30 UNITS SUB-Q (09:17)
[2021-05-29] MEDS: INSULIN ASPART (*BKC) 100 UNITS/ML 6 UNITS SUB-Q ×3 (09:17→17:34)
[2021-05-29] MEDS: PANTOPRAZOLE 40 MG TABLET PO (09:18)
[2021-05-29] MEDS: ASPIRIN 81 MG ENTERIC TABLET PO (09:18)
[2021-05-29] MEDS: POLYSACCHARIDE IRON COMPLEX 150 MG CAPSULE PO (09:18)
[2021-05-29] MEDS: AMIODARONE HCL 200 MG TABLET PO (09:18)
[2021-05-29] MEDS: POTASSIUM CHLORIDE 20 MEQ TABLET.ER PO (09:18)
[2021-05-29] MEDS: FUROSEMIDE 40 MG TABLET PO ×2 (09:18→17:33)
[2021-05-29] MEDS: carvediloL 3.125 MG TABLET PO ×2 (09:19→21:01)
[2021-05-29] MEDS: ARTIFICIAL TEARS OPHTH SOLN 15 ML BOTTLE 1 DROP EACH EYE ×2 (09:19→17:33)
--- NOTE | 2021-05-29 11:42 | PM.IMPN ---
Progress Note: A&P Assessment and Plan (1) Hypothermia: Code(s): T68.XXXA - Hypothermia, initial encounter Status: Acute Assessment and Plan: Temp in the field was 96.4. When patient arrived in the ED, she complained of being cold with a Lindquist catheter temp of 91.1?. She was started on a Hank Hugger. Possibly related to the hypothyroidism. Temperature more stable and able to come off the Hank Hugger. (2) Bradycardia: Code(s): R00.1 - Bradycardia, unspecified Status: Acute Assessment and Plan: EMS called to the [facility] for the patient being lethargic and fatigued. On EMS evaluation, carl wad HR 48 and BP 82/40. She received atropine 0.5 mg x 1 and fluid bolus. She is on amiodarone and Coreg. Heart rate here initially was in the 40-50 range but has improved to normal range. BP has been stable since admission. [place] possibly related to the hypothyroidism. Amiodarone and Coreg have been resumed. Continue to monitor closely on telemetry. (3) Myxedema: Code(s): E03.9 - Hypothyroidism, unspecified Status: Acute Assessment and Plan: Patient with TSH 35, FT4 0.25 and TT3 0.66. Could be related to her Amiodarone. She was given Levothyroxine 200mcg IV once then started on oral this morning at 175mcg. Given the fact that she is improved and that her TSH is only 34 and that she has CHF, will decrease oral dose to 100mcg and advance more slowly if needed. (4) Chronic anemia: Code(s): D64.9 - Anemia, unspecified Status: Acute Assessment and Plan: Hgb 7.9 on admission. She has known chronic anemia. B12/folate normal in September. Iron studies noted and probable mix of anemia of chronic disease and iron deficiency. Continue iron replacement. (5) Chronic kidney disease: Code(s): N18.9 - Chronic kidney disease, unspecified Status: Acute Assessment and Plan: Baseline Cr 1-1.3 range with estimated GFR in the 40-50 range. Creatinine 1.2 on admission. Patient probably within baseline. Will continue Lasix for now. (6) Abnormal chest x-ray: Code(s): R93.89 - Abnormal findings on diagnostic imaging of other specified body structures Status: Acute Assessment and Plan: Patient with diffuse bilateral airspace disease pneumonia and/or edema. She appears relatively asymptomatic from this. Some of these x-ray findings were noted on chest x-ray and the end of April. COVID testing underway. She did receive Lasix IV on admission but this has been changed to oral. Consider CT of the chest if her COVID test is negative. (7) Congestive heart failure: Code(s): I50.9 - Heart failure, unspecified Status: Acute Assessment and Plan: BNP was 6360. Chest x-ray as mentioned above. She was treated with few dose of IV Lasix with good results. She has been converted to oral Lasix now. Continue monitor urine output. 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 The patient's blood glucose was reviewed on 05/29 Glucose remains well controlled. Continue AccuCheks covering with sliding scale. Hypoglycemia protocol available as needed. Continue current medications. Subjective Date/time seen: 05/29/21 11:42 Interval history: 81yo female with CAD, PAD, diabetes and diastolic CHF here for hypotension, bradycardia and hypothermia. Patient feels well. She denies shortness of breath or chest pain. She is currently on 2 L oxygen which she wears at the longterm. No anosmia or dysgeusia. No cough. No nausea vomiting. She has noted some swelling in her bilateral lower extremities. Complains of buttock pain from a known open wound Exam Narrative: AF 98.5 108/43 68 18 95% 2L Gen - NARD Chest - faint bibasilar inspiratory crackles. nml
[2021-05-29 12:36] LABS: Glucose Point of Care 134 mg/dl (65-105)
[2021-05-29] MEDS: ENOXAPARIN 40 MG/0.4 ML SYRINGE SUB-Q (12:54)
[2021-05-29 17:10] LABS: Glucose Point of Care 111 mg/dl (65-105)
[2021-05-29 17:32] LABS: SARS-CoV-2 RNA PCR Negative
[2021-05-29 20:27] LABS: Glucose Point of Care 113 mg/dl (65-105)
[2021-05-30] VITALS (10 sets, daily range): BP systolic 98–118; BP diastolic 45–85; PULSE 62–70; RESP 18–28; TEMP 35.8–36.7; O2SAT 94–100
[2021-05-30] MEDS: LEVOTHYROXINE SODIUM 100 MCG TABLET PO (04:57)
[2021-05-30 05:37] LABS: Hematocrit 29.5 % (37.0-47.0); Hemoglobin 8.4 g/dL (12.0-15.0); Mean Corpuscular HGB Conc 28.5 g/dl (32-36); Mean Corpuscular Hemoglobin 27.8 pg (26-34); Mean Corpuscular Volume 97.7 fl (80-100); Mean Platelet Volume 9.9 fl (7.4-10.4); Platelet Count Result 296 k/mm3 (150-375); Red Blood Count 3.02 M/mm3 (4.2-5.4); White Blood Count 10.4 K/mm3 (4.5-10.0)
[2021-05-30 06:08] LABS: Albumin Level 3.2 g/dL (3.5-5.1); Anion Gap 6 mmol/L (8-16); Blood Urea Nitrogen 22 mg/dL (7-17); Calcium 8.6 mg/dL (8.4-10.2); Carbon Dioxide 30 mmol/L (22-30); Chloride 103 mmol/L (98-107); Estimated CRCL calculation 42 ml/min; Estimated Glomerular Filt Rate 48; Glucose 59 mg/dL (65-110); Magnesium 2.2 mg/dL (1.6-2.3); Phosphorus 4.2 mg/dL (2.5-4.5); Sodium 139 mmol/L (137-145)
[2021-05-30 06:55] LABS: Glucose Point of Care 87 mg/dl (65-105)
[2021-05-30 08:34] LABS: Glucose Point of Care 93 mg/dl (65-105)
[2021-05-30] MEDS: carvediloL 3.125 MG TABLET PO (08:35)
[2021-05-30] MEDS: ENOXAPARIN 40 MG/0.4 ML SYRINGE SUB-Q (08:36)
[2021-05-30] MEDS: PANTOPRAZOLE 40 MG TABLET PO (08:36)
[2021-05-30] MEDS: ARTIFICIAL TEARS OPHTH SOLN 15 ML BOTTLE 1 DROP EACH EYE ×2 (08:36→17:30)
[2021-05-30] MEDS: AMIODARONE HCL 200 MG TABLET PO (08:36)
[2021-05-30] MEDS: POTASSIUM CHLORIDE 20 MEQ TABLET.ER PO (08:36)
[2021-05-30] MEDS: FUROSEMIDE 40 MG TABLET PO ×2 (08:36→17:30)
[2021-05-30] MEDS: ASPIRIN 81 MG ENTERIC TABLET PO (08:36)
[2021-05-30] MEDS: POLYSACCHARIDE IRON COMPLEX 150 MG CAPSULE PO (08:36)
[2021-05-30] MEDS: INSULIN GLARGINE (*BKC) 100 UNITS/ML 30 UNITS SUB-Q (08:38)
[2021-05-30] MEDS: INSULIN ASPART (*BKC) 100 UNITS/ML 6 UNITS SUB-Q ×2 (08:39→17:30)
[2021-05-30] MEDS: traMADol/ACETAMINOPHEN (*CRX) (ULTRACET) 37.5/325 MG TABLET 1 TAB PO ×2 (08:41→15:49)
--- NOTE | 2021-05-30 08:53 | PC.NURSE ---
Addendum entered by Piper Dahl RN 05/30/21 09:56: Date entered incorrectly. Actual date 05/30/21 Original Note: Previous RN didn't log out of system. Medications and physician consult charted under [facility] (Edilia Tovar RN) from [phone] on 05/29/21 were actually administered under sign on [facility] (Piper Dahl, RN).
--- NOTE | 2021-05-30 09:21 | PM.CNOR ---
Assessment and Plan Assessment and plan (1) S/P BKA (below knee amputation): Onset Date: 05/04/21 Qualifiers: Laterality: left Qualified Code(s): Z89.512 - Acquired absence of left leg below knee Code(s): Z89.519 - Acquired absence of unspecified leg below knee Status: Acute Assessment and Plan: Three weeks 5 days status post revision left below-knee amputation. Readmitted for medical conditions. Left amputation site appears well healed. Sutures removed today. Wound care instructions given. Continue with conservative care for 3 more weeks. We then can start weight-bearing rehab at that point. History of Present Illness HPI Consult date: 05/30/21 Requesting physician: Chidi Paulino MD Chief complaint: hypothermia/chf exacerbation Narrative: 81-year-old woman known to the Orthopedic Service for left below-knee amputation revision 3.5 weeks ago. Patient was at her senior care facility and readmitted for CHF and hypothermia. Asked to see patient for and treatment for left below-knee amputation. She reports mild pain left leg. She complains more of swelling both legs. They have been doing dry dressing changes to the wound site. Review of Systems Constitutional: Constitutional: Denies chills and Reports fatigue Eyes: Eyes: Reports no additional eye complaints ENT: Reports Normal hearing present, Denies epistaxis and Denies nasal congestion Cardiovascular: Cardiovascular: Denies chest pain, Denies leg edema, Denies lightheadedness and Denies palpitations Respiratory: Respiratory: Denies chest congestion, Denies cough, Denies hemoptysis, Reports dyspnea and Reports dyspnea on exertion Gastrointestinal: Gastrointestinal: Denies abdominal pain, Denies hematochezia and Denies hematemesis Genitourinary: Genitourinary: Denies hematuria and Denies dysuria Musculoskeletal: Musculoskeletal: Reports other ( Bilateral leg amputations) Integumentary/Breasts: Skin/Breast: Denies rash Neurologic: Denies Abnormal speech present and Denies headache(s) Psychiatric: Psychiatric: Denies no additional psychiatric complaints Endocrine: Endocrine: Denies cold intolerance, Denies heat intolerance and Denies polyphagia Hematologic/Lymphatic: Hematologic/Lymphatic: Reports easy bleeding and Reports easy bruising PMFSH Past Medical History Medical History C. difficile colitis Chronic anemia Chronic kidney disease Chronic obstructive pulmonary disease Congestive heart failure Echocardiogram August 2020: EF of 55-60%, technically difficult to study, diastolic function abnormal, right ventricular systolic function mildly reduced, [id number] tricuspid valve regurgitation, moderate pulmonary hypertension. Coronary artery disease Depression High cholesterol Hypertension Hypothyroidism Insulin dependent type 2 diabetes mellitus Hemoglobin A1c was 10.3% in August 2020. Left bundle branch block Moderate pulmonary hypertension Neuropathy NSTEMI (non-ST elevated myocardial infarction) (09/23/20) Osteomyelitis of left foot Paroxysmal atrial fibrillation (09/2020) Peripheral arterial occlusive disease Right-sided heart failure Noted on echocardiogram August 2020 with mildly reduced right ventricular systolic function. Surgical History Surgical History 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 Postop complication of wound dehiscence with wound VAC placement November 2020 History of coronary artery bypass graft x 3 (~2004) History of right below knee amputation (~08/2015) History of transmetatarsal amputation of left foot transmetatarsal amputations at the necks of the 2nd/3rd Status post cataract extraction of both eyes with insertion of intraocular lens Family History Family History (Reviewed 0
--- NOTE | 2021-05-30 11:14 | PM.DS ---
DS: Admitting Diagnosis Admitting Diagnosis Hypotension with bradycardia DS: Discharge Diagnosis Discharge Diagnosis (1) Hypothermia: Code(s): T68.XXXA - Hypothermia, initial encounter Status: Acute Assessment and Plan: Temp in the field was 96.4. When patient arrived in the ED, she complained of being cold with a Lindquist catheter temp of 91.1?. She was started on a Hank Hugger. Possibly related to the hypothyroidism. Temperature became more stable and able to come off the Hank Hugger. She was able to maintain her temperature without difficulty since. (2) Bradycardia: Code(s): R00.1 - Bradycardia, unspecified Status: Acute Assessment and Plan: EMS called to the long-term for the patient being lethargic and fatigued. On EMS evaluation, patient had a HR 48 and BP 82/40. She received atropine 0.5 mg x 1 and fluid bolus. She is on amiodarone and Coreg. Heart rate here initially was in the 40-50 range but has improved to normal range now. BP has been stable since admission. [place] these findings related to the hypothyroidism. Amiodarone and Coreg were resumed. She was monitored closely on telemetry and vital signs remained stable. (3) Myxedema: Code(s): E03.9 - Hypothyroidism, unspecified Status: Acute Assessment and Plan: Patient with TSH 35, FT4 0.25 and TT3 0.66. Could be related to her Amiodarone. She was given Levothyroxine 200mcg IV once then started on oral at 175mcg. Given the fact that she is improved and that her TSH is only 34 and that she has CHF, we decrease oral dose to 100mcg and will advance more slowly if needed. She will need further TSH values as outpatient (4) Chronic anemia: Code(s): D64.9 - Anemia, unspecified Status: Acute Assessment and Plan: Hgb 7.9 on admission. She has known chronic anemia. B12/folate normal in September. Iron studies noted and probable a mix of anemia of chronic disease and iron deficiency. We continued iron replacement. Repeat Hgb improved. (5) Chronic kidney disease: Code(s): N18.9 - Chronic kidney disease, unspecified Status: Acute Assessment and Plan: Baseline Cr 1-1.3 range with estimated GFR in the 40-50 range. Creatinine 1.2 on admission and remained stable. (6) Abnormal chest x-ray: Code(s): R93.89 - Abnormal findings on diagnostic imaging of other specified body structures Status: Acute Assessment and Plan: Patient with diffuse bilateral airspace disease pneumonia and/or edema. She appears relatively asymptomatic from this. Some of these x-ray findings were noted on chest x-ray and the end of April. COVID testing was negative. She did receive Lasix IV on admission and this was changed to oral. Suspect related to CHF from the above vital sign changes. (7) Congestive heart failure: Code(s): I50.9 - Heart failure, unspecified Status: Acute Assessment and Plan: BNP was 6360. Echo from April 2021 showing EF 035%, Grade III diastolic dysfunction and severe pulmonary HTN. Chest x-ray as mentioned above. She was treated with few doses of IV Lasix with good results and negative fluid balance. She has been converted to oral Lasix now. Cardiology noted reviewed from April. Given the decline in EF, they recommended heart cath but patient could not lay flat. She feels better now and could lay flat. Discussed with cardiolog who felt patitn could be discharged home today and they will arrange for the outpatient heart cath. Patient was informed about this. Called and left message with son with patient permission. Low dose ACEI added. 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 The patient's blood glucose was monitored closely with AccuChe
[2021-05-30 12:05] LABS: Glucose Point of Care 40 mg/dl (65-105)
[2021-05-30 12:05] LABS: Glucose Point of Care 40 mg/dl (65-105)
[2021-05-30] MEDS: DEXTROSE 50% 25 GM/50 ML SYRINGE IV PUSH (12:09)
[2021-05-30 12:49] LABS: Glucose Point of Care 73 mg/dl (65-105)
[2021-05-30 16:36] LABS: Glucose Point of Care 111 mg/dl (65-105)
[2021-06-02 17:26] LABS: Soluble Transferrin Receptor 2.92 mg/L (0.76-1.76)
--- NOTE | 2021-06-06 12:34 | PC.NURSE ---
Blood cx are negative. STR is elevated at 2.92. Dr. Paulino aware of above. Results faxed to Dr. Butler.
== END 2021-05-30 19:07 ==
LOC: ANHED 10:06 → ANHIMU 15:08
PROVIDERS: Physician Assistant; Admitting Provider Student in an Organized Health Care Education/Training Program; Emergency Provider Emergency Medicine; PCP Internal Medicine; Visit Provider Internal Medicine
DX: T68.XXXA Hypothermia, initial encounter (principal); R00.1 Bradycardia, unspecified; E03.9 Hypothyroidism, unspecified; D64.9 Anemia, unspecified; R91.8 Other nonspecific abnormal finding of lung field; R53.1 Weakness; M79.605 Pain in left leg; I95.9 Hypotension, unspecified; I13.0 Hypertensive heart and chronic kidney disease with heart failure and stage 1 through stage 4 chronic kidney disease, or unspecified chronic kidney disease; E11.22 Type 2 diabetes mellitus with diabetic chronic kidney disease; N18.9 Chronic kidney disease, unspecified; I50.9 Heart failure, unspecified; Z89.512 Acquired absence of left leg below knee; J44.9 Chronic obstructive pulmonary disease, unspecified; I25.10 Atherosclerotic heart disease of native coronary artery without angina pectoris; J96.10 Chronic respiratory failure, unspecified whether with hypoxia or hypercapnia; I48.0 Paroxysmal atrial fibrillation; I25.2 Old myocardial infarction; E11.51 Type 2 diabetes mellitus with diabetic peripheral angiopathy without gangrene; E11.40 Type 2 diabetes mellitus with diabetic neuropathy, unspecified; I44.7 Left bundle-branch block, unspecified; E78.00 Pure hypercholesterolemia, unspecified; Z20.822 Contact with and (suspected) exposure to COVID-19; Z79.4 Long term (current) use of insulin; Z72.0 Tobacco use; Z99.81 Dependence on supplemental oxygen; Z79.82 Long term (current) use of aspirin
CPT/HCPCS: 36415; 71045; 80048; 80053; 80069; 81003; 82533; 82948; 83036; 83605; 83735; 83880; 84145; 84238; 84439; 84443; 84480; 85025; 85027; 86140; 87040; 93005; 96372; 96374; 96375; 96376; 97161; 99285; A9270; C9803; G0378; J1650; J1815; J1940; U0003; U0005